=== PATIENT | male | born 1955 | race African-American/Black ===

== ENCOUNTER 2018-03-17 06:29 | Inpatient (IN) ==
--- NOTE | 2018-03-17 08:17 | ED ---
HPI General Chief complaint: Medical Clearance Stated complaint: Feet Swollen/cramping legs/pain in stomach Time Seen by Provider: 03/17/18 08:10 Source: patient Mode of arrival: ambulatory Limitations: no limitations History of Present Illness HPI narrative: 62-year-old male patient with history of hepatitis C, complicated by cirrhosis and recent need of ascites drainage last month at [facility], presents to the ER today because he has noticed that over the last few weeks he has had increased leg swelling, also noted that he has had some increased shortness of breath with exertion according to his . He denies any chest pains currently, abdominal pains, fevers, or other symptoms. He just moved to the area and wanted to come get checked out, does not yet have a primary care physician here. He states that he was released with diuretics which she has been taking regularly. Related Data Home Medications Medication Instructions Recorded Confirmed ciprofloxacin HCl 15 mg/kg PO Q12H 03/17/18 03/17/18 furosemide 40 mg PO BID 03/17/18 03/17/18 lactulose 10 g PO TID 03/17/18 03/17/18 spironolactone 100 mg PO DAILY 03/17/18 03/17/18 tamsulosin 0.4 mg PO DAILY 03/17/18 03/17/18 Allergies Allergy/AdvReac Type Severity Reaction Status Date / Time No Known Allergies Allergy Unverified 03/17/18 08:11 Review of Systems Except as stated in HPI: all other systems reviewed are negative [facility] Medical History Medical History Cirrhosis (Acute) Hepatitis C (Acute) Prostate cancer (Acute) Social History Social History Substance History: No History of Abuse Smoking Status: Never smoker How Often Do You Have a Drink Containing Alcohol: Never Recent Travel in [place] within the Last 8 Weeks: No Recent Out of Country Travel within the Last 8 Weeks: No Immunization History Tetanus Immunization: Unsure Hx Influenza Vaccine This Season: No Exam Narrative Exam Narrative: GENERAL: Well-developed elderly -[place] male patient currently in mild distress. Awake and oriented 3. SKIN: Focused skin assessment warm/dry. HEAD: Atraumatic. Normocephalic. EYES: Pupils equal and round. No scleral icterus. No injection or drainage. ENT: No nasal bleeding or discharge. Mucous membranes pink and moist. NECK: Trachea midline. No JVD. Supple. CARDIOVASCULAR: Regular rate and rhythm. No murmur appreciated. RESPIRATORY: No accessory muscle use. Clear to auscultation. Breath sounds equal bilaterally. GASTROINTESTINAL: Abdomen soft, non-tender, moderately distended. Hepatic and splenic margins not palpable. MUSCULOSKELETAL: No obvious deformities. No clubbing. No cyanosis. Bilateral pitting edema of both lower legs. NEUROLOGICAL: Awake and alert. No obvious cranial nerve deficits. Motor grossly within normal limits. Normal speech. Notable asterixis. PSYCHIATRIC: Appropriate mood and affect; insight and judgment normal. Course Hospital Course: Case is discussed with Dr. Ambriz for admission. Initial Documented Vital Signs Temperature 97.9 F 03/17/18 07:07 Pulse Rate 69 03/17/18 07:07 Respiratory Rate 16 03/17/18 07:07 Blood Pressure 110/63 03/17/18 07:07 Pulse Oximetry 99 03/17/18 07:07 Last Documented Vital Signs Temperature 97.9 F 03/17/18 07:07 Pulse Rate 88 03/17/18 07:12 Respiratory Rate 18 03/17/18 07:12 Blood Pressure 134/58 L 03/17/18 07:12 Pulse Oximetry 98 03/17/18 09:31 Medical Decision Making Differential Diagnosis Differential Diagnosis: Dependent edema versus ascites and worsening third spacing versus CHF Lab Data Result diagrams: 03/17/18 08:16 03/17/18 08:16 Lab Results 03/17/18 03/17/18 03/17/18 Range/Units 08:16 08:16 08:16 WBC 4.7 (4.0-11.0) th/mm3 RBC 2.57 L (4.50-5.90) mil/mm3 Hgb 9.1 L (13.0-17.0) gm/dL Hct 27.4 L (39.0-51.0) % MCV 106.9 H (80.0-100.0) fL MCH 35.4 H (27.0-34.0) pg MCHC 33.1 (32.0-36.0) % RDW 16.2 (11.6-17.2) % Plt Count 102 L (150-450) th/mm3 MPV 8.9 (7.0-11.0) fL Neut % (Auto) 65.7 (16.0-70.0) % Lymph % (Auto) 19.3 (9.0-44.0) % [place] % (Auto) 12.3 H (0.0-8.0) % Eos % (Auto) 1.9 (0.0-4.0) % Baso % (Auto) 0.8 (0.0-2.0) % Neut # (Auto) 3.1 (1.8-7.7) th/mm3 Lymph # (Auto) 0.9 L (1.0-4.8) th/mm3 [place] # (Auto) 0.6 (0.0-0.9) th/mm3 Eos # (Auto) 0.1 (0.0-0.4) th/mm3 Baso # (Auto) 0.0 (0.0-0.2) th/mm3 WBC Differential . Differential Comment Auto diff final PT 19.5 H (9.8-11.6) sec INR 1.9 Ratio APTT 36.7 H (24.3-30.1) sec Sodium 137 (136-145) meq/L Potassium 4.0 (3.5-5.1) meq/L Chloride 103 (98-107) meq/L Carbon Dioxide 23.3 (21.0-32.0) meq/L Anion Gap 11 (5-15) meq/L BUN 10 (7-18) mg/dL Creatinine 1.30 (0.60-1.30) mg/dL Estimated GFR 68 L (>89) mL/min Random Glucose 118 H (74-106) mg/dL Calcium 8.6 (8.5-10.1) mg/dL Total Bilirubin 6.9 H (0.2-1.0) mg/dL AST 100 H (15-37) U/L ALT 54 (12-78) U/L Alkaline Phosphatase 129 H (45-117) U/L Ammonia (11-32) mcmol/L Total Creatine Kinase 126 (39-308) U/L B-Natriuretic Peptide (0-100) pg/mL Total Protein 8.3 H (6.4-8.2) g/dL Albumin 1.6 L (3.4-5.0) g/dL 03/17/18 03/17/18 Range/Units 08:16 08:16 WBC (4.0-11.0) th/mm3 RBC (4.50-5.90) mil/mm3 Hgb (13.0-17.0) gm/dL Hct (39.0-51.0) % MCV (80.0-100.0) fL MCH (27.0-34.0) pg MCHC (32.0-36.0) % RDW (11.6-17.2) % Plt Count (150-450) th/mm3 MPV (7.0-11.0) fL Neut % (Auto) (16.0-70.0) % Lymph % (Auto) (9.0-44.0) % [place] % (Auto) (0.0-8.0) % Eos % (Auto) (0.0-4.0) % Baso % (Auto) (0.0-2.0) % Neut # (Auto) (1.8-7.7) th/mm3 Lymph # (Auto) (1.0-4.8) th/mm3 [place] # (Auto) (0.0-0.9) th/mm3 Eos # (Auto) (0.0-0.4) th/mm3 Baso # (Auto) (0.0-0.2) th/mm3 WBC Differential Differential Comment PT (9.8-11.6) sec INR Ratio APTT (24.3-30.1) sec Sodium (136-145) meq/L Potassium (3.5-5.1) meq/L Chloride (98-107) meq/L Carbon Dioxide (21.0-32.0) meq/L Anion Gap (5-15) meq/L BUN (7-18) mg/dL Creatinine (0.60-1.30) mg/dL Estimated GFR (>89) mL/min Random Glucose (74-106) mg/dL Calcium (8.5-10.1) mg/dL Total Bilirubin (0.2-1.0) mg/dL AST (15-37) U/L ALT (12-78) U/L Alkaline Phosphatase (45-117) U/L Ammonia 72 H (11-32) mcmol/L Total Creatine Kinase (39-308) U/L B-Natriuretic Peptide 51 (0-100) pg/mL Total Protein (6.4-8.2) g/dL Albumin (3.4-5.0) g/dL Imaging Data Radiologist's impression: ITS Impressions Chest X-Ray 03/17/18 08:11 CONCLUSION: Negative examination. Discharge Plan Discharge Disposition Patient Disposition: 30 Still Patient Discharge Condition Condition: Stable Discharge Details Anticipated Discharge Date: 03/17/18 Diagnosis: Hyperammonemia Physicians Team ED Provider: Jose Wasserman Primary Care Provider: Primary Care Margo Ty Rxs /Orders / Referrals /Forms Prescriptions: No Action furosemide 40 mg Tablet 40 mg PO BID RF: 0 ciprofloxacin HCl 500 mg Tablet 15 mg/kg PO Q12H RF: 0 tamsulosin 0.4 mg Capsule,Extended Release 24hr 0.4 mg PO DAILY RF: 0 spironolactone 50 mg Tablet 100 mg PO DAILY RF: 0 lactulose 10 gram/15 mL (15 mL) Solution 10 g PO TID RF: 0 Status ED Status: With Doctor
--- NOTE | 2018-03-17 08:26 | XR ---
EXAM DATE: 03/17/2018 8:24 AM EDT AGE/SEX: 62 years / Male INDICATIONS: Short of breath. CLINICAL DATA: This is the patient's initial encounter. Patient reports that signs and symptoms have been present for 2 days and indicates a pain score of 3/10. MEDICAL/SURGICAL HISTORY: Cirrhosis. Hepatitis C. None. COMPARISON: No prior exams available for comparison. FINDINGS: A single AP view of the chest demonstrates the lungs to be symmetrically aerated without evidence of mass, infiltrate or effusion. The cardiomediastinal contours are unremarkable. Osseous structures a re intact. CONCLUSION: Negative examination. Electronically signed by: Jerman Graham MD 03/17/2018 8:25 AM EDT
[2018-03-17 08:39] LABS: Baso % (Auto) 0.8 % (0.0-2.0); Eos # (Auto) 0.1 th/mm3 (0.0-0.4); Eos % (Auto) 1.9 % (0.0-4.0); Hematocrit 27.4 % (39.0-51.0); Hemoglobin 9.1 gm/dL (13.0-17.0); Lymph # (Auto) 0.9 th/mm3 (1.0-4.8); Lymph % (Auto) 19.3 % (9.0-44.0); Mean Corpuscular HGB Conc 33.1 % (32.0-36.0); Mean Corpuscular Hemoglobin 35.4 pg (27.0-34.0); Mean Corpuscular Volume 106.9 fL (80.0-100.0); Mean Platelet Volume 8.9 fL (7.0-11.0); Mono # (Auto) 0.6 th/mm3 (0.0-0.9); Mono % (Auto) 12.3 % (0.0-8.0); Neut # (Auto) 3.1 th/mm3 (1.8-7.7); Neut % (Auto) 65.7 % (16.0-70.0); Platelet Count 102 th/mm3 (150-450); Red Blood Count 2.57 mil/mm3 (4.50-5.90); Red Cell Distribution Width 16.2 % (11.6-17.2); White Blood Count 4.7 th/mm3 (4.0-11.0)
[2018-03-17 08:45] LABS: Activated Partial Thrombo Time 36.7 sec (24.3-30.1); INR 1.9 Ratio
[2018-03-17 08:47] LABS: Prothrombin Time 19.5 sec (9.8-11.6)
[2018-03-17 08:55] LABS: Albumin 1.6 g/dL (3.4-5.0); Anion Gap 11 meq/L (5-15); Aspartate Aminotransferase 100 U/L (15-37); Blood Urea Nitrogen 10 mg/dL (7-18); Calcium 8.6 mg/dL (8.5-10.1); Carbon Dioxide 23.3 meq/L (21.0-32.0); Chloride 103 meq/L (98-107); Glomerular Filtration Rate 68 mL/min (>89); Glucose,Random 118 mg/dL (74-106); Sodium 137 meq/L (136-145)
[2018-03-17 08:58] LABS: Alanine Aminotransferase 54 U/L (12-78); Alkaline Phosphatase 129 U/L (45-117); Creatine Kinase 126 U/L (39-308); Total Protein 8.3 g/dL (6.4-8.2)
[2018-03-17] MEDS ORDERED: Bisacodyl 10 MG Supp RECTAL PRN (10:36)
--- NOTE | 2018-03-17 10:36 | P.HPIM ---
History of Present Illness Primary Care Physician: No Primary Care Physician Chief Complaint: I am short of breath and has a lot of swelling in the legs History of Present Illness: 62-year-old -[place] male with a history of hepatitis C and cirrhosis who presents with one-week history of worsening shortness of breath on physical exertion and lower extremity swelling along with increased swelling of his abdomen. He was just hospitalized back in February 04 at [facility] in [place] and has seven liters of peritoneal fluid drained for his ascites. His states that he has been more confused over the past week and did not realize he was supposed to take his lactulose on a daily basis as she had thought this was a stool softener. He did not take his lactulose due to having loose stools during the past few days. They had just moved to this area 2 days ago and does not have any health care resources to follow-up with at this time. He denies any fevers or chills. After stopping the lactulose he has not had any further loose stools. He has denied any bloody stools or black stools. He reports some discomfort over the his abdomen due to the increased swelling. - Diagnosis (1) Hepatic encephalopathy (2) Liver disease, chronic, with cirrhosis (3) Ascites of liver Inpatient Certification: I certify that the inpatient services were ordered in accordance with Medicare regulations governing the order. This includes certification that hospital inpatient services are reasonable and necessary and in the case of services not specified as inpatient-only under 42 CFR 419.22(n), that they are appropriately provided as inpatient services in accordance to with the 2-midnight benchmark under 43 CFR 412.3(e) Review of Systems All other systems reviewed negative except as stated in HPI [facility] - History History Provided By: Patient - Medical History Medical History: Medical History (Last Updated 03/17/18 @ 10:30 by Ying Ambriz MD) Cirrhosis Hepatitis C Prostate cancer Psoriasis - Surgical History Surgical History: Surgical History (Last Updated 03/17/18 @ 10:31 by Ying Ambriz MD) H/O prostate biopsy - Family History Family History: Family History (Last Updated 03/17/18 @ 10:31 by Ying Ambriz MD) Mother Family history of acute myocardial infarction - Tobacco History Smoking Status: Never smoker - Alcohol History How Often Do You Have a Drink Containing Alcohol: Never - Substance Use History Substance History: No History of Abuse - Travel History Recent Travel in the [place] Within the Last 8 Weeks: No Recent Travel Out of the Country Within the Last 8 Weeks: No - Immunization History Tetanus Immunization: Unsure Hx Influenza Vaccine This Season: No Medications and Allergies Active Medications: Active Medications Sodium Chloride (Ns Flush) 2 ml IV.FLUSH PRN PRN PRN Reason: FLUSH AFTER USING IV ACCESS Allergies Allergy/AdvReac Type Severity Reaction Status Date / Time No Known Allergies Allergy Unverified 03/17/18 08:11 Home Medications Medication Instructions Recorded Confirmed Type ciprofloxacin HCl 15 mg/kg PO Q12H 03/17/18 03/17/18 History furosemide 40 mg PO BID 03/17/18 03/17/18 History lactulose 10 g PO TID 03/17/18 03/17/18 History spironolactone 100 mg PO DAILY 03/17/18 03/17/18 History tamsulosin 0.4 mg PO DAILY 03/17/18 03/17/18 History Exam Vital signs: Vital Signs 03/17/18 07:07 03/17/18 07:12 03/17/18 09:31 Temperature 97.9 F Pulse Rate 69 88 Respiratory Rate 16 18 Blood Pressure 110/63 134/58 L Pulse Oximetry 99 100 98 03/17/18 10:16 Temperature Pulse Rate 68 Respiratory Rate 18 Blood Pressure 105/70 Pulse Oximetry 97 Intake & Output 03/16/18 03/17/18 03/17/18 18:59 06:59 18:59 Weight 127.006 kg Narrative: GENERAL: Obese well-nourished well-developed male in no acute distress SKIN: Warm and dry. HEAD: Atraumatic. Normocephalic. EYES: Pupils equal and round. No scleral icterus. No injection or drainage. ENT: No nasal bleeding or discharge. Mucous membranes pink and moist. NECK: Trachea midline. No JVD. CARDIOVASCULAR: Regular rate and rhythm. RESPIRATORY: No accessory muscle use. Clear to auscultation. Breath sounds equal bilaterally. GASTROINTESTINAL: Abdomen soft, non-tender, distended with ascites. Normoactive bowel sounds. MUSCULOSKELETAL: Extremities without clubbing, cyanosis, with 2+ edema NEUROLOGICAL: Awake and alert to person place time but does not know his address. No obvious cranial nerve deficits. Motor grossly within normal limits. Five out of 5 muscle strength in the arms and legs. Normal speech. PSYCHIATRIC: Appropriate mood and affect; . Results - Labs CBC & Chem 7: 03/17/18 08:16 03/17/18 08:16 Labs: Short CBC 03/17/18 Range/Units 08:16 WBC 4.7 (4.0-11.0) th/mm3 Hgb 9.1 L (13.0-17.0) gm/dL Hct 27.4 L (39.0-51.0) % Plt Count 102 L (150-450) th/mm3 BMP 03/17/18 08:16 Sodium 137 Potassium 4.0 Chloride 103 Carbon Dioxide 23.3 BUN 10 Creatinine 1.30 Calcium 8.6 Cardiac Enzymes 03/17/18 Range/Units 08:16 Total Creatine Kinase 126 (39-308) U/L Liver Function 03/17/18 Range/Units 08:16 Total Bilirubin 6.9 H (0.2-1.0) mg/dL AST 100 H (15-37) U/L ALT 54 (12-78) U/L Alkaline Phosphatase 129 H (45-117) U/L Albumin 1.6 L (3.4-5.0) g/dL - Imaging Impressions Chest X-Ray 03/17/18 08:11 CONCLUSION: Negative examination. Caprini VTE Risk Assessment Caprini VTE Risk Assessment: Moderate/High Risk (score >= 2) Caprini Risk Assessment Model: Point Value = 1 Point Value = 2 Point Value = 3 Point Value = 5 Age 41-60 Minor surgery BMI > 25 kg/m2 Swollen legs Varicose veins or History of unexplained or recurrent spontaneous Oral contraceptives or hormone replacement Sepsis (< 1 month) Serious lung disease, including pneumonia (< 1 month) Abnormal pulmonary function Acute myocardial infarction Congestive heart failure (< 1 month) History of inflammatory bowel disease Medical patient at bed rest Age 61-74 Arthroscopic surgery Major open surgery (> 45 min) Laparoscopic surgery (> 45 min) Malignancy Confined to bed (> 72 hours) Immobilizing plaster cast Central venous access Age >= 75 History of VTE Family history of VTE Factor V Leiden Prothrombin [id number] Lupus anticoagulant Anticardiolipin antibodies Elevated serum homocysteine Heparin-induced thrombocytopenia Other congenital or acquired thrombophilia Stroke (< 1 month) Elective arthroplasty Hip, pelvis, or leg fracture Acute spinal cord injury (< 1 month) Prophylaxis Regimen: Total Risk Factor Score Risk Level Prophylaxis Regimen 0-1 Low Early ambulation 2 Moderate Order ONE of the following: *Sequential Compression Device (SCD) *Heparin 5000 units SQ BID 3-4 Higher Order ONE of the following medications: *Heparin 5000 units SQ TID *Enoxaparin/Lovenox 40 mg SQ daily (WT < 150 kg, CrCl > 30 mL/min) *Enoxaparin/Lovenox 30 mg SQ daily (WT < 150 kg, CrCl > 10-29 mL/min) *Enoxaparin/Lovenox 30 mg SQ BID (WT < 150 kg, CrCl > 30 mL/min) AND/OR *Sequential Compression Device (SCD) 5 or more Highest Order ONE of the following medications: *Heparin 5000 units SQ TID (Preferred with Epidurals) *Enoxaparin/Lovenox 40 mg SQ daily (WT < 150 kg, CrCl > 30 mL/min) *Enoxaparin/Lovenox 30 mg SQ daily (WT < 150 kg, CrCl > 10-29 mL/min) *Enoxaparin/Lovenox 30 mg SQ BID (WT < 150 kg, CrCl > 30 mL/min) AND *Sequential Compression Device (SCD) Assessment and Plan - Assessment (1) Hepatic encephalopathy Code(s): K72.90 - Hepatic failure, unspecified without coma Status: Acute (2) Liver disease, chronic, with cirrhosis Code(s): K74.60 - Unspecified cirrhosis of liver; K76.9 - Liver disease, unspecified Status: Chronic (3) Ascites of liver Code(s): R18.8 - Other ascites Status: Acute - Plan 1. Hepatic encephalopathypatient with elevated ammonia levels due to nonadherence to lactulose. Will restart home lactulose and counseled both patient and on the proper medication adherence. 2. History of liver cirrhosis, hepatitis C with ascites. IV Lasix and spironolactone. Consult GI physician per patient's request. Patient will prefer not to have a paracentesis if he can avoid it during this hospitalization. Case management to assist with referral to outpatient primary care physician upon discharge for follow-up. 3. Chronic kidney disease stage II. Monitor on diuretics. Avoid nephrotoxins. 4. DVT prophylaxisno anticoagulation secondary to history of liver cirrhosis
[2018-03-18 08:03] LABS: Calcium 8.2 mg/dL (8.5-10.1); Carbon Dioxide 22.4 meq/L (21.0-32.0); Potassium 3.5 meq/L (3.5-5.1)
--- NOTE | 2018-03-18 09:26 | P.PN ---
Subjective Interval history: complains of itching on IV site- likley reaction to chlorhexidine - medication was wipe out and itching resolved but by history with generlized itching- history of psoriasis- but plaque lesions are dry and not inflamed or red discuss with them that cirrhosis also can be contributing to itching- awake and alert no nausea or vomiting tolerated po well this am but feels bloated distended- states belly bigger seen with at bedside states history of BPH on Flomax Physical Exam Vital signs: Vital Signs 03/17/18 09:31 03/17/18 10:16 03/17/18 13:45 Temperature Pulse Rate 68 88 Respiratory Rate 18 18 Blood Pressure 105/70 142/69 H Pulse Oximetry 98 97 100 03/17/18 16:00 03/17/18 20:00 03/17/18 21:10 Temperature 97.7 F 98.1 F Pulse Rate 88 94 H 113 H Respiratory Rate 18 18 Blood Pressure 118/75 118/59 L Pulse Oximetry 100 99 03/17/18 23:30 03/18/18 00:00 03/18/18 03:55 Temperature 98.9 F Pulse Rate 108 H 87 97 H Respiratory Rate 18 Blood Pressure 103/59 L Pulse Oximetry 100 03/18/18 04:00 03/18/18 08:00 Temperature 97.9 F 98.1 F Pulse Rate 125 H 82 Respiratory Rate 18 18 Blood Pressure 105/60 114/77 Pulse Oximetry 98 99 Intake & Output 03/17/18 03/18/18 03/18/18 18:59 06:59 18:59 Intake Total 480 / 480 Output Total 100 / 100 Balance 380 / 380 Weight 145.5 kg 144.9 kg Intake: Oral 480 / 480 Output: Urine 100 / 100 Other: # Voids 1 Date of Last Bowel Movement 03/17/18 # Bowel Movements 1 Weight On Admission 145.5 kg Narrative: awake and alert, oriented x 3 slight icteresi no nuchal rigidity lungs- no wheezes, decreased breath sounds irregular rhythm, sinus with frequent PACs vs a fib on telemetry abdomen- distended but soft, good bowel sounds, nontender extremities + edema neuro exam- non focal Results - Labs CBC & Chem 7: 03/17/18 08:16 03/18/18 05:45 Laboratory Results - last 24 hr 03/18/18 05:45 Sodium 139 Potassium 3.5 Chloride 105 Carbon Dioxide 22.4 Anion Gap 12 BUN 11 Creatinine 1.08 Estimated GFR 84 L Random Glucose 108 H Calcium 8.2 L Assessment and Plan - Assessment (1) Hepatic encephalopathy Code(s): K72.90 - Hepatic failure, unspecified without coma Status: Acute (2) Liver disease, chronic, with cirrhosis Code(s): K74.60 - Unspecified cirrhosis of liver; K76.9 - Liver disease, unspecified Status: Chronic (3) Ascites of liver Code(s): R18.8 - Other ascites Status: Acute - Plan 62 years old male Hepatic encephalopathy history of liver cirrhosis- MS much improved History of Hep C History of alcohol use sober for years patient with elevated ammonia levels due to nonadherence to lactulose. restart home lactulose and counseled both patient and on the proper medication adherence. ff INR 1.9 Pruritus- likely from cirrhosis History of psoriasis doubt this as cause - plaque lesions are not inflamed and red consider bile acid sequestrants REcurrent ascites- per patient and had paracentesis done 6/ - 7 L out as OP was on Furosemide 40 mg daily and Aldactone 50 mg po bid Continue on IV Lasix and spironolactone. FF electrolytes Consult GI physician per patient's request. Get an Ultrasound of the abdomen= check for signiificant ascites Patient will prefer not to have a paracentesis if he can avoid it during this hospitalization. Tachycardia on telemetry - A fib new onset - d/w - no history of arrhytmia, or HTN, reviewed records from last hospital no ekg for review- but no mentio of arrhythmias - get 12 LEKG - get an echo- ff eletrolytes closely - start po KCL bid (at one point was on potassium supplements) - monitor BMP closely on aldactone and lasix Chronic kidney disease stage II. Monitor on diuretics. Avoid nephrotoxins. History of BPH -continue on Flomax 0,4 mg daily Anemia- likely chronic - INR 1.9 - check bea studies, B12, folate level - start PPI - GI consult DVT prophylaxisno anticoagulation secondary to history of liver cirrhosis Case management consult- needs assistance "we don't have anything"
--- NOTE | 2018-03-18 13:37 | P.CONGI ---
History of Present Illness Consult date: 03/18/18 Consult reason: Hepatitis C, cirrhosis Chief complaint: Elevated ammonia level/ heptaic encephalopathy History of Present Illness: This is a 62 yo M with known hepatitis C, treatment naive, with recent diagnosis of Cirrhosis while hospitalized at [facility] in [place] in February. During that admission pt had a paracentesis with 7 L of fluid removed, he was discharged home with Spironolactone, Lasix, and Lactulose. Per pts he was not taking the Lactulose because he thought it was for constipation and he states his BMs have been normal. Pt presented to the hospital yesterday with complaints of abdominal and lower extremity swelling and shortness of breath with exertion. Per pts she has also noticed that he has been kind of confused for the past couple days, she has also noticed some yellowing of his eyes. Pt denies having a GI doctor previously. Denies history of IV drug use, tattoos, high risk sexual behavior, and previous blood transfusion. Does reports previous alcohol but quit drinking 3-4 months ago. Has not had work up for liver transplant. <Maryam Braden - Last Filed: 03/18/18 13:28> Review of Systems Constitutional: Reports lack of energy Respiratory: Reports shortness of breath with activity Gastrointestinal: Denies abdominal pain, Denies black, tarry stools, Denies bright, red blood in stools, Denies change in stools, Denies nausea, Denies vomiting Comments: abdominal swelling <Maryam Braden - Last Filed: 03/18/18 13:28> [facility] - History History Provided By: Patient - Medical History Medical History: Medical History (Last Updated 03/17/18 @ 10:30 by Ying Ambriz MD) Cirrhosis Hepatitis C Prostate cancer Psoriasis - Surgical History Surgical History: Surgical History (Last Updated 03/17/18 @ 10:31 by Ying Ambriz MD) H/O prostate biopsy - Family History Family History: Family History (Last Updated 03/17/18 @ 10:31 by Ying Ambriz MD) Mother Family history of acute myocardial infarction - Tobacco History Second Hand Smoke Exposure: No Smoking Status: Never smoker - Alcohol History How Often Do You Have a Drink Containing Alcohol: Never - Substance Use History Substance History: No History of Abuse - Travel History Recent Travel in the [place] Within the Last 8 Weeks: No Recent Travel Out of the Country Within the Last 8 Weeks: No - Immunization History Tetanus Immunization: Unsure Hx Influenza Vaccine This Season: No <ChrisMaryam syed - Last Filed: 03/18/18 13:28> - Medical History Medical History: Medical History (Last Updated 03/17/18 @ 10:30 by Ying Ambriz MD) Cirrhosis Hepatitis C Prostate cancer Psoriasis - Surgical History Surgical History: Surgical History (Last Updated 03/17/18 @ 10:31 by Ying Ambriz MD) H/O prostate biopsy - Family History Family History: Family History (Last Updated 03/17/18 @ 10:31 by Ying Ambriz MD) Mother Family history of acute myocardial infarction <Lori Mayer - Last Filed: 03/18/18 21:08> Medications and Allergies Active Medications: Active Medications Al Hydroxide/Mg Hydroxide (Milk Of Magnesia Liq) 30 ml PO Q12H PRN PRN Reason: Mild Constipation Bisacodyl (Dulcolax Supp) 10 mg RECTAL DAILY PRN PRN Reason: SEVERE CONSITIPATION Diphenhydramine HCl (Benadryl) 50 mg PO Q6H PRN PRN Reason: pruritis Last Admin: 03/18/18 06:37 Dose: 50 mg Furosemide (Lasix Inj) 40 mg IV.PUSH BID@0900,1800 [facility] Last Admin: 03/18/18 08:35 Dose: 40 mg Lactulose (Lactulose Liq) 15 ml PO TID [facility] Last Admin: 03/18/18 12:44 Dose: 15 ml Pantoprazole Sodium (Protonix) 40 mg PO DAILY [facility] Last Admin: 03/18/18 12:45 Dose: 40 mg Potassium Chloride (Klor-Con 10) 10 meq PO BID [facility] Last Admin: 03/18/18 12:45 Dose: 10 meq Sennosides (Senokot) 17.2 mg PO Q12H PRN PRN Reason: Moderate Constipation Sodium Chloride (Ns Flush) 2 ml IV.FLUSH PRN PRN PRN Reason: FLUSH AFTER USING IV ACCESS Spironolactone (Aldactone) 100 mg PO DAILY [facility] Last Admin: 03/18/18 09:07 Dose: 100 mg Tamsulosin HCl (Flomax) 0.4 mg PO DAILY [facility] Last Admin: 03/18/18 09:07 Dose: 0.4 mg <Maryam Braden - Last Filed: 03/18/18 13:28> Active Medications: Active Medications Al Hydroxide/Mg Hydroxide (Milk Of Magnesia Liq) 30 ml PO Q12H PRN PRN Reason: Mild Constipation Bisacodyl (Dulcolax Supp) 10 mg RECTAL DAILY PRN PRN Reason: SEVERE CONSITIPATION Furosemide (Lasix Inj) 40 mg IV.PUSH BID@0900,1800 [facility] Last Admin: 03/18/18 18:04 Dose: 40 mg Hydroxyzine HCl (Atarax) 10 mg PO Q8H PRN PRN Reason: ITCHING Last Admin: 03/18/18 18:04 Dose: 10 mg Lactulose (Lactulose Liq) 15 ml PO TID [facility] Last Admin: 03/18/18 18:05 Dose: 15 ml Pantoprazole Sodium (Protonix) 40 mg PO DAILY [facility] Last Admin: 03/18/18 12:45 Dose: 40 mg Potassium Chloride (Klor-Con 10) 10 meq PO BID [facility] Last Admin: 03/18/18 12:45 Dose: 10 meq Rifaximin (Xifaxan) 550 mg PO Q12HR [facility] Sennosides (Senokot) 17.2 mg PO Q12H PRN PRN Reason: Moderate Constipation Sodium Chloride (Ns Flush) 2 ml IV.FLUSH PRN PRN PRN Reason: FLUSH AFTER USING IV ACCESS Spironolactone (Aldactone) 100 mg PO DAILY [facility] Last Admin: 03/18/18 09:07 Dose: 100 mg Tamsulosin HCl (Flomax) 0.4 mg PO DAILY [facility] Last Admin: 03/18/18 09:07 Dose: 0.4 mg <Lori Mayer - Last Filed: 03/18/18 21:08> Allergies Allergy/AdvReac Type Severity Reaction Status Date / Time chlorhexidine Allergy Mild Rash Verified 03/18/18 09:24 Home Medications Medication Instructions Recorded Confirmed Type ciprofloxacin HCl 15 mg/kg PO Q12H 03/17/18 03/17/18 History furosemide 40 mg PO BID 03/17/18 03/17/18 History lactulose 10 g PO TID 03/17/18 03/17/18 History spironolactone 100 mg PO DAILY 03/17/18 03/17/18 History tamsulosin 0.4 mg PO DAILY 03/17/18 03/17/18 History Exam Vital signs: Vital Signs 03/17/18 13:45 03/17/18 16:00 03/17/18 20:00 Temperature 97.7 F 98.1 F Pulse Rate 88 88 94 H Respiratory Rate 18 18 18 Blood Pressure 142/69 H 118/75 118/59 L Pulse Oximetry 100 100 99 03/17/18 21:10 03/17/18 23:30 03/18/18 00:00 Temperature 98.9 F Pulse Rate 113 H 108 H 87 Respiratory Rate 18 Blood Pressure 103/59 L Pulse Oximetry 100 03/18/18 03:55 03/18/18 04:00 03/18/18 08:00 Temperature 97.9 F 98.1 F Pulse Rate 97 H 125 H 82 Respiratory Rate 18 18 Blood Pressure 105/60 114/77 Pulse Oximetry 98 99 03/18/18 12:00 Temperature 97.8 F Pulse Rate 79 Respiratory Rate 17 Blood Pressure 127/62 Pulse Oximetry 100 Intake & Output 03/17/18 03/18/18 03/18/18 18:59 06:59 18:59 Intake Total 480 / 480 Output Total 100 / 100 Balance 380 / 380 Weight 145.5 kg 144.9 kg Intake: Oral 480 / 480 Output: Urine 100 / 100 Other: # Voids 1 Date of Last Bowel Movement 03/17/18 # Bowel Movements 1 Weight On Admission 145.5 kg - Constitutional no acute distress - Routine HEENT Exam Head: Present: normocephalic, atraumatic Eye: Present: conjunctival icterus - Routine Respiratory Exam Absent: accessory muscle use - Routine Cardiovascular Exam Present: RRR - Routine Abdominal Exam Present: soft, normoactive bowel sounds, distended. Absent: tenderness, rebound , guarding, firm - Routine Skin Exam Present: dry, warm - Routine Neurological Exam Present: alert, oriented X3 <Maryam Braden - Last Filed: 03/18/18 13:28> Vital signs: Vital Signs 03/17/18 21:10 03/17/18 23:30 03/18/18 00:00 Temperature 98.9 F Pulse Rate 113 H 108 H 87 Respiratory Rate 18 Blood Pressure 103/59 L Pulse Oximetry 100 03/18/18 03:55 03/18/18 04:00 03/18/18 08:00 Temperature 97.9 F 98.1 F Pulse Rate 97 H 125 H 92 H Respiratory Rate 18 18 Blood Pressure 105/60 114/77 Pulse Oximetry 98 99 03/18/18 12:00 03/18/18 16:00 03/18/18 20:00 Temperature 97.8 F 98.1 F 97.7 F Pulse Rate 85 89 95 H Respiratory Rate 17 17 18 Blood Pressure 127/62 127/58 L 115/62 Pulse Oximetry 100 99 100 Intake & Output 03/18/18 03/18/18 03/19/18 06:59 18:59 06:59 Intake Total 480 / 480 720 / 720 Output Total 100 / 100 Balance 380 / 380 720 / 720 Weight 144.9 kg Intake: Oral 480 / 480 720 / 720 Output: Urine 100 / 100 Other: # Voids 1 2 Date of Last Bowel Movement 03/17/18 03/17/18 # Bowel Movements 1 <Lori Mayer - Last Filed: 03/18/18 21:08> Results - Labs CBC & Chem 7: 03/17/18 08:16 03/18/18 05:45 Labs: Laboratory Results - last 24 hr 03/18/18 05:45 Sodium 139 Potassium 3.5 Chloride 105 Carbon Dioxide 22.4 Anion Gap 12 BUN 11 Creatinine 1.08 Estimated GFR 84 L Random Glucose 108 H Calcium 8.2 L <Maryam Braden - Last Filed: 03/18/18 13:28> - Labs CBC & Chem 7: 03/17/18 08:16 03/18/18 05:45 Labs: Laboratory Results - last 24 hr 03/18/18 03/18/18 05:45 05:45 Sodium 139 Potassium 3.5 Chloride 105 Carbon Dioxide 22.4 Anion Gap 12 BUN 11 Creatinine 1.08 Estimated GFR 84 L Random Glucose 108 H Calcium 8.2 L Magnesium 1.9 - Imaging Impressions Abdomen Ultrasound 03/18/18 00:00 CONCLUSION: 1. Ascites. <Lori Mayer - Last Filed: 03/18/18 21:08> Assessment and Plan - Plan Assessment: - Hepatitis C, treatment naive with recent diagnosis of cirrhosis while hospitalized at [facility] in [place] in February. Pt was discharged home with Lasix, Spironolactone, and Lactulose. Has not been taking Lactulose as prescribed because he thought this was for his bowel movements. Pt reports was advised for possibly Cari, because he is self pay and they offer financial assistance Complaints of abdominal and lower extremity swelling, worse over the past couple days. Had a paracentesis done in February at [facility] with 7 L of fluid removed. - Hypoalbuminemia, thrombocytopenia, and coagulopathy noted- secondary to cirrhosis Plan: US abdomen Hepatitis C genotype and quant Treatment for Hep C to be started outpatient Continue with ETOH cessation Monitor LFTs Monitor coags Monitor Ammonia Xifaxan and Lactulose Spironolactone and Lasix Further recommendations based on clinical course Pt has been seen and examined by myself and Dr. Mayer and this note is written on his behalf <Maryam Braden - Last Filed: 03/18/18 13:28> - Attending Attestation Agree with the plan as above, will follow up hep C and decompensated cirrhosis. Thank you for the consult. <Lori Mayer - Last Filed: 03/18/18 21:08>
--- NOTE | 2018-03-18 16:41 | US ---
EXAM DATE: 03/18/2018 4:18 PM EDT AGE/SEX: 62 years / Male INDICATIONS: Abdominal distention. CLINICAL DATA: This is the patient's initial encounter. Patient reports that signs and symptoms have been present for 1 week and indicates a pain score of 5/10. MEDICAL/SURGICAL HISTORY: Hepatitis C. Cirrhosis. Carcinoma, prostatic. Psoriasis. . Prosta te biopsy. COMPARISON: No prior exams available for comparison. FINDINGS: Moderate ascites is present. CONCLUSION: 1. Ascites. Electronically signed by: Dion Glover MD 03/18/2018 4:39 PM EDT
[2018-03-18] MEDS: rifAXIMin 550 MG Tablet PO SCH (21:08)
[2018-03-19 07:26] LABS: Albumin 1.5 g/dL (3.4-5.0); Anion Gap 10 meq/L (5-15); Aspartate Aminotransferase 84 U/L (15-37); Blood Urea Nitrogen 12 mg/dL (7-18); Calcium 8.4 mg/dL (8.5-10.1); Carbon Dioxide 25.4 meq/L (21.0-32.0); Chloride 103 meq/L (98-107); Glomerular Filtration Rate 68 mL/min (>89); Glucose,Random 104 mg/dL (74-106); Magnesium 1.9 mg/dL (1.5-2.5); Potassium 3.6 meq/L (3.5-5.1); Sodium 138 meq/L (136-145)
[2018-03-19 07:27] LABS: Alanine Aminotransferase 47 U/L (12-78); Iron 115 mcg/dL (65-175)
[2018-03-19 07:44] LABS: Prothrombin Time 20.4 sec (9.8-11.6)
[2018-03-19 08:27] LABS: % Iron Saturation 85.6 % (20-50); Alkaline Phosphatase 144 U/L (45-117); Ferritin 3146 ng/mL (26-388); Total Iron Binding Capacity 134 mcg/dL (250-450); Total Protein 7.3 g/dL (6.4-8.2); Vitamin B12 1514 pg/mL (193-986)
[2018-03-19] MEDS: rifAXIMin 550 MG Tablet PO SCH ×2 (09:53→20:34)
--- NOTE | 2018-03-19 13:35 | P.PNGI ---
Subjective Interval history: Pt reports the swelling in his abdomen and legs seems to be subsiding some. Denies abdominal pain, nausea, vomiting. <Maryam Braden - Last Filed: 03/19/18 13:31> Physical Exam Vital signs: Vital Signs 03/18/18 16:00 03/18/18 20:00 03/18/18 21:30 Temperature 98.1 F 97.7 F Pulse Rate 89 85 97 H Respiratory Rate 17 18 Blood Pressure 127/58 L 115/62 Pulse Oximetry 99 100 03/19/18 00:00 03/19/18 04:00 Temperature 97.5 F L 97.9 F Pulse Rate 93 H 86 Respiratory Rate 18 18 Blood Pressure 145/86 H 127/87 Pulse Oximetry 100 99 Intake & Output 03/18/18 03/19/18 03/19/18 18:59 06:59 18:59 Intake Total 720 / 720 240 / 240 Output Total 100 / 100 Balance 720 / 720 140 / 140 Weight 146.2 kg Intake: Oral 720 / 720 240 / 240 Output: Urine 100 / 100 Other: # Voids 2 Date of Last Bowel Movement 03/17/18 # Bowel Movements 0 - Constitutional no acute distress - Routine HEENT Exam Head: Present: normocephalic, atraumatic - Routine Respiratory Exam Absent: accessory muscle use - Routine Cardiovascular Exam Present: RRR - Routine Abdominal Exam Present: normoactive bowel sounds, distended, firm. Absent: tenderness - Routine Skin Exam Present: dry, warm - Routine Neurological Exam Present: alert, oriented X3 <Maryam Braden - Last Filed: 03/19/18 13:31> Vital signs: Vital Signs 03/19/18 00:00 03/19/18 04:00 03/19/18 08:00 Temperature 97.5 F L 97.9 F Pulse Rate 93 H 86 88 Respiratory Rate 18 18 Blood Pressure 145/86 H 127/87 Pulse Oximetry 100 99 03/19/18 12:00 03/19/18 20:00 Temperature 97.7 F Pulse Rate 84 77 Respiratory Rate 20 Blood Pressure 112/57 L Pulse Oximetry 100 Intake & Output 03/19/18 03/19/18 03/20/18 06:59 18:59 06:59 Intake Total 240 / 240 Output Total 100 / 100 Balance 140 / 140 Weight 146.2 kg Intake: Oral 240 / 240 Output: Urine 100 / 100 Other: # Bowel Movements 0 <Lori Mayer - Last Filed: 03/19/18 21:53> Results - Labs CBC & Chem 7: 03/17/18 08:16 03/19/18 06:35 Laboratory Results - last 24 hr 03/18/18 03/19/18 03/19/18 05:45 06:35 06:35 PT 20.4 H INR 2.0 Sodium 138 Potassium 3.6 Chloride 103 Carbon Dioxide 25.4 Anion Gap 10 BUN 12 Creatinine 1.30 Estimated GFR 68 L Random Glucose 104 Calcium 8.4 L Magnesium 1.9 1.9 Iron 115 TIBC 134 L % Saturation 85.6 H Ferritin 3146 H Total Bilirubin 4.6 H AST 84 H ALT 47 Alkaline Phosphatase 144 H Total Protein 7.3 D Albumin 1.5 L Vitamin B12 1514 H Folate 6.0 - Imaging Impressions Abdomen Ultrasound 03/18/18 00:00 CONCLUSION: 1. Ascites. <Maryam Braden - Last Filed: 03/19/18 13:31> - Labs CBC & Chem 7: 03/17/18 08:16 03/19/18 06:35 Laboratory Results - last 24 hr 03/19/18 03/19/18 06:35 06:35 PT 20.4 H INR 2.0 Sodium 138 Potassium 3.6 Chloride 103 Carbon Dioxide 25.4 Anion Gap 10 BUN 12 Creatinine 1.30 Estimated GFR 68 L Random Glucose 104 Calcium 8.4 L Magnesium 1.9 Iron 115 TIBC 134 L % Saturation 85.6 H Ferritin 3146 H Total Bilirubin 4.6 H AST 84 H ALT 47 Alkaline Phosphatase 144 H Total Protein 7.3 D Albumin 1.5 L Vitamin B12 1514 H Folate 6.0 <Lori Mayer - Last Filed: 03/19/18 21:53> Assessment and Plan - Plan Assessment: - Hepatitis C, treatment naive with recent diagnosis of cirrhosis while hospitalized at [facility] in [place] in February. Pt was discharged home with Lasix, Spironolactone, and Lactulose. Has not been taking Lactulose as prescribed because he thought this was for his bowel movements. Pt reports was advised for possibly Cari, because he is self pay and they offer financial assistance Complaints of abdominal and lower extremity swelling, worse over the past couple days. Had a paracentesis done in February at [facility] with 7 L of fluid removed. - Hypoalbuminemia, thrombocytopenia, and coagulopathy noted- secondary to cirrhosis (03/19) Pt reports some mild improvement in leg and abdominal swelling today. Still with pitting edema in BLE. LFTs trending down some. Elevated ferritin noted, will add HFE. US abdomen revealed ascites. Pt INR now 2, too high for paracentesis. FFP could be considered if paracentesis is needed. Hep C genotype and quant pending. Plan: HFE If paracentesis is necessary will need FFP transfusion Hepatitis C genotype and quant Treatment for Hep C to be started outpatient Continue with ETOH cessation Monitor LFTs Monitor coags Monitor Ammonia Xifaxan and Lactulose Spironolactone and Lasix Further recommendations based on clinical course Pt has been seen and examined by myself and Dr. Mayer and this note is written on his behalf <Mayram Braden - Last Filed: 03/19/18 13:31> - Attending Attestation Seen with victoria Francisco as above. Will follow up with you. <Lori Mayer - Last Filed: 03/19/18 21:53>
--- NOTE | 2018-03-19 14:46 | P.PN ---
Subjective Interval history: patient feels more distended full despite diuretics voiding well Physical Exam Vital signs: Vital Signs 03/18/18 16:00 03/18/18 20:00 03/18/18 21:30 Temperature 98.1 F 97.7 F Pulse Rate 89 85 97 H Respiratory Rate 17 18 Blood Pressure 127/58 L 115/62 Pulse Oximetry 99 100 03/19/18 00:00 03/19/18 04:00 Temperature 97.5 F L 97.9 F Pulse Rate 93 H 86 Respiratory Rate 18 18 Blood Pressure 145/86 H 127/87 Pulse Oximetry 100 99 Intake & Output 03/18/18 03/19/18 03/19/18 18:59 06:59 18:59 Intake Total 720 / 720 240 / 240 Output Total 100 / 100 Balance 720 / 720 140 / 140 Weight 146.2 kg Intake: Oral 720 / 720 240 / 240 Output: Urine 100 / 100 Other: # Voids 2 Date of Last Bowel Movement 03/17/18 # Bowel Movements 0 Narrative: awake and alert, oriented x 3 slight icteresia no nuchal rigidity lungs- no wheezes, decreased breath sounds regular rhtyhm with PAcs on telemetry abdomen- more distended, slightly tense, good bowel sounds, nontender extremities + edema neuro exam- non focal Results - Labs CBC & Chem 7: 03/17/18 08:16 03/19/18 06:35 Laboratory Results - last 24 hr 03/19/18 03/19/18 06:35 06:35 PT 20.4 H INR 2.0 Sodium 138 Potassium 3.6 Chloride 103 Carbon Dioxide 25.4 Anion Gap 10 BUN 12 Creatinine 1.30 Estimated GFR 68 L Random Glucose 104 Calcium 8.4 L Magnesium 1.9 Iron 115 TIBC 134 L % Saturation 85.6 H Ferritin 3146 H Total Bilirubin 4.6 H AST 84 H ALT 47 Alkaline Phosphatase 144 H Total Protein 7.3 D Albumin 1.5 L Vitamin B12 1514 H Folate 6.0 - Imaging Impressions Abdomen Ultrasound 03/18/18 00:00 CONCLUSION: 1. Ascites. Assessment and Plan - Assessment (1) Hepatic encephalopathy Code(s): K72.90 - Hepatic failure, unspecified without coma Status: Acute (2) Liver disease, chronic, with cirrhosis Code(s): K74.60 - Unspecified cirrhosis of liver; K76.9 - Liver disease, unspecified Status: Chronic (3) Ascites of liver Code(s): R18.8 - Other ascites Status: Acute - Plan 62 years old male Hepatic encephalopathy history of liver cirrhosis- MS much improved History of Hep C History of alcohol use sober for years patient with elevated ammonia levels due to nonadherence to lactulose. restart home lactulose and counseled both patient and on the proper medication adherence. ff INR 1.9 Pruritus- likely from cirrhosis History of psoriasis doubt this as cause - plaque lesions are not inflamed and red consider bile acid sequestrants- if persists REcurrent ascites- per patient and had paracentesis done 02/08 - 7 L out US with ascites- patient clinically feel full on exam more tense today c/w yesterday Continue on IV Lasix and spironolactone. FF electrolytes GI ff US consulted for paracentesis tomorrow am- get INR down will give 2 units FFP now and x 1 Vit K 10 mg SQ tonight for paracentesis in am INR in am patient agrees to paracentesis now- Tachycardia- rate better- EKG sinus with PACs - continue to monitor on telemetry - d/w - no history of arrhytmia, or HTN, - get an echo- ff eletrolytes closely - started po KCL bid (at one point was on potassium supplements) - monitor BMP closely on aldactone and lasix Chronic kidney disease stage II. Monitor on diuretics. Avoid nephrotoxins. History of BPH -continue on Flomax 0,4 mg daily Anemia- likely chronic - INR 1.9 - start PPI - GI ff DVT prophylaxisno anticoagulation secondary to history of liver cirrhosis Case management consult- needs assistance "we don't have anything"
[2018-03-19] MEDS ORDERED: Phytonadione Inj 10 MG/ML Vial SQ ONE (21:00)
[2018-03-20] MEDS: rifAXIMin 550 MG Tablet PO SCH ×2 (08:31→22:19)
[2018-03-20 09:08] LABS: INR 1.8 Ratio; Prothrombin Time 17.8 sec (9.8-11.6)
[2018-03-20 09:28] LABS: Albumin 1.7 g/dL (3.4-5.0); Anion Gap 10 meq/L (5-15); Aspartate Aminotransferase 86 U/L (15-37); Blood Urea Nitrogen 11 mg/dL (7-18); Calcium 8.3 mg/dL (8.5-10.1); Carbon Dioxide 26.4 meq/L (21.0-32.0); Chloride 102 meq/L (98-107); Glomerular Filtration Rate 69 mL/min (>89); Glucose,Random 103 mg/dL (74-106); Potassium 3.5 meq/L (3.5-5.1); Sodium 138 meq/L (136-145)
[2018-03-20 09:34] LABS: Alanine Aminotransferase 48 U/L (12-78); Alkaline Phosphatase 146 U/L (45-117); Total Protein 7.7 g/dL (6.4-8.2)
[2018-03-20] MEDS ORDERED: Albumin Human 25% Inj 150 ML IV.SIG ONE (11:33)
--- NOTE | 2018-03-20 11:37 | P.RAD ---
Post Procedure Progress Note - Pre Procedure Diagnosis (1) Liver disease, chronic, with cirrhosis (2) Ascites of liver - Post Procedure Diagnosis (1) Liver disease, chronic, with cirrhosis (2) Ascites of liver - Procedure Information Supervising Radiologist: Андрей Nicholson MD Estimated blood loss (mL): 0 Anesthesia: Local - Plan of Activity Patient to Unit: Other Patient Condition: Good See PACS Report for procedural detail/treatment. Drainage Procedure Ultrasound right Paracentesis Drainage: Suction Fluid Removal (CCs): 6,300 Fluid Description: Clear, Yellow Plan: return to floor.
--- NOTE | 2018-03-20 12:20 | ECG ---
Date Performed: 03/18/2018 Time Performed: 10:38:06 PTAGE: 62 years EKG: Sinus rhythm WITH FREQUENT VENTRICULAR PREMATURE COMPLEXES MARKED LEFT AXIS DEVIATION NONSPECIFIC T-WAVE ABNORMAL ITY ABNORMAL ECG NO PREVIOUS TRACING DOCTOR: Majo Baker Interpretating Date/Time 03/20/2018 12:09:57
[2018-03-20] MEDS ORDERED: Lidocaine PF 1% Inj 30 ML Vial ONE (13:18)
--- NOTE | 2018-03-20 13:20 | US ---
EXAM DATE: 03/20/2018 12:20 PM EDT AGE/SEX: 62 years / Male INDICATIONS: Ascites. CLINICAL DATA: This is the patient's initial encounter. Patient reports that signs and symptoms have been present for 1 month and indicates a pain score of 1/10. MEDICAL/SURGICAL HISTORY: Cirrhosis. Hepatitis C. Psoriasis. Prostate cancer. Ascites. . Pros botello biopsy. Paracentesis. COMPARISON: [facility], US ABDOMEN LOWER LIMITED, 03/18/2018. . FLUID: Total volume of 6300 cc of clear, yellow fluid was removed. Fluid was discarded. Paracentesis was the rapeutic only. . . TECHNIQUE: Ultrasound guidance for abdominal paracentesis. Paracentesis. The risks, benefits, and alternatives to ultrasound guided paracentesis were explained to the patient in detail including the risk of bleeding and infection. Written and verbal informed consent was obt ained. With the patient on the ultrasound table, ultrasound imaging was used to select the most appropriate approach for paracentesis. Overlying skin was prepped and draped in the usual sterile fashion and wi th a local anesthetic, a dermatotomy was made with an 11 blade scalpel. A 6 [id number] ca theter was introduced into the peritoneal cavity and fluid was collected. Post procedure scanning reveals no hematoma or other complication. The patient tolerated the procedu re well and left the ultrasound suite in stable condition. CONCLUSION: Uncomplicated paracentesis with removal of 6.3 L of fluid. Electronically signed by: Андрей Nicholson MD 03/20/2018 1:19 PM EDT
--- NOTE | 2018-03-20 14:11 | P.PNIM ---
Subjective Interval history: 03-19 patient feels more distended full despite diuretics voiding well - HAD PARACENTESIS 6.3LITERS TODAY NOT HAVING VERY FREQUENT BM'S PER PATIENT AND FAMILY AT BEDSIDE WILL CHECK AM LABS CONTINUE TO AKANKSHA LOPEZ RN AND PT AND FAMILY AND CM Physical Exam Vital signs: Vital Signs 03/19/18 16:00 03/19/18 20:00 03/20/18 00:00 Temperature 98.7 F 97.7 F 97.8 F Pulse Rate 96 H 92 H 102 H Respiratory Rate 20 20 20 Blood Pressure 139/67 112/57 L 114/58 L Pulse Oximetry 98 100 99 03/20/18 01:58 03/20/18 02:17 03/20/18 04:00 Temperature 98.2 F 98.2 F 97.7 F Pulse Rate 79 81 76 Respiratory Rate 16 16 20 Blood Pressure 135/76 138/78 102/51 L Pulse Oximetry 99 99 98 03/20/18 04:06 03/20/18 04:09 03/20/18 04:25 Temperature 97.9 F 97.9 F 98.0 F Pulse Rate 76 80 77 Respiratory Rate 18 18 18 Blood Pressure 109/64 111/68 109/70 Pulse Oximetry 98 99 99 03/20/18 05:48 03/20/18 08:00 03/20/18 11:04 Temperature 98.0 F 98.3 F 99.3 F Pulse Rate 77 102 H 82 Respiratory Rate 16 20 18 Blood Pressure 120/74 111/55 L 121/74 Pulse Oximetry 98 99 100 03/20/18 12:10 03/20/18 12:30 Temperature 98.8 F Pulse Rate 78 85 Respiratory Rate 18 18 Blood Pressure 126/59 L 117/59 L Pulse Oximetry 99 99 Intake & Output 03/19/18 03/20/18 03/20/18 18:59 06:59 18:59 Intake Total 240 / 240 511 / 511 Output Total 400 / 400 Balance -160 / -160 511 / 511 Weight 147.4 kg Intake: Oral 240 / 240 240 / 240 Intake (Blood Product) Amt Plasma Thawed 5 Day Acda Unit 0 / 0 [id number] Plasma Thawed 5 Day Cp2d Unit 271 / [id number] Output: Urine 400 / 400 Other: # Voids 2 Date of Last Bowel Movement 03/17/18 # Bowel Movements 0 0 Narrative: GENERAL: AWAKE ALERT AND ORIENTED X3 TALKATIVE AND COOPERATIVE TODAY SKIN: Warm and dry. HEAD: Atraumatic. Normocephalic. EYES: Pupils equal and round. No scleral icterus. No injection or drainage. ENT: No nasal bleeding or discharge. Mucous membranes pink and moist. NECK: Trachea midline. No JVD. SUPPLE CARDIOVASCULAR: Regular rate and rhythm. S1, S2 NO S3 OR S4 RESPIRATORY: No accessory muscle use. Clear to auscultation. Breath sounds equal bilaterally. GASTROINTESTINAL: Abdomen soft, non-tender, nondistended. Hepatic and splenic margins not palpable. SOFT NOT DISTENDED SP PARACENTESIS MUSCULOSKELETAL: Extremities without clubbing, cyanosis, PLUS 1 TO 2 EDEMA BL LE IMPROVED No obvious deformities. NEUROLOGICAL: Awake and alert. No obvious cranial nerve deficits. Motor grossly within normal limits. Five out of 5 muscle strength in the arms and legs. Normal speech. PSYCHIATRIC: Appropriate mood and affect; insight and judgment normal. Results - Labs CBC & Chem 7: 03/17/18 08:16 03/20/18 08:45 Laboratory Results - last 24 hr 03/19/18 03/20/18 03/20/18 19:18 08:45 08:45 PT 17.8 H INR 1.8 Sodium 138 Potassium 3.5 Chloride 102 Carbon Dioxide 26.4 Anion Gap 10 BUN 11 Creatinine 1.28 Estimated GFR 69 L Random Glucose 103 Calcium 8.3 L Total Bilirubin 5.0 H AST 86 H ALT 48 Alkaline Phosphatase 146 H Total Protein 7.7 Albumin 1.7 L Blood Type O Positive Blood Type Recheck Required Blood Bank Comment - Imaging Impressions Paracentesis Ultrasound 03/20/18 00:00 CONCLUSION: Uncomplicated paracentesis with removal of 6.3 L of fluid. Assessment and Plan - Assessment (1) Hepatic encephalopathy Code(s): K72.90 - Hepatic failure, unspecified without coma Status: Acute (2) Liver disease, chronic, with cirrhosis Code(s): K74.60 - Unspecified cirrhosis of liver; K76.9 - Liver disease, unspecified Status: Chronic (3) Ascites of liver Code(s): R18.8 - Other ascites Status: Chronic - Plan 62 years old male Hepatic encephalopathy history of liver cirrhosis- MS much improved History of Hep C History of alcohol use sober for years patient with elevated ammonia levels due to nonadherence to lactulose. restart home lactulose and counseled both patient and on the proper medication adherence. ON RIFAXIMIN ff INR 1.9 Pruritus- likely from cirrhosis History of psoriasis doubt this as cause - plaque lesions are not inflamed and red consider bile acid sequestrants- if persists REcurrent ascites- per patient and had paracentesis done 02/08 - 7 L out SP PARACENTESIS - 6.3 LITERS US with ascites- patient clinically feel full on exam more tense today c/w yesterday Continue on IV Lasix and spironolactone. FF electrolytes GI ff US consulted for paracentesis tomorrow am- get INR down will give 2 units FFP now and x 1 Vit K 10 mg SQ tonight for paracentesis in am INR in am patient agrees to paracentesis now- 03-20 PARACENTESIS 6.3 LITERS Tachycardia- rate better- EKG sinus with PACs - continue to monitor on telemetry - d/w - no history of arrhytmia, or HTN, - get an echo- ff eletrolytes closely - started po KCL bid (at one point was on potassium supplements) - monitor BMP closely on aldactone and lasix Chronic kidney disease stage II. Monitor on diuretics. Avoid nephrotoxins. History of BPH -continue on Flomax 0,4 mg daily Anemia- likely chronic - INR 1.9 - start PPI - GI ff DVT prophylaxisno anticoagulation secondary to history of liver cirrhosis Case management consult- needs assistance "we don't have anything" Code Status: FULL CODE Discussed Condition With: RN AND PT AND CM Discharge Planning: WILL NEED HELP WITH [employer]
--- NOTE | 2018-03-20 14:50 | P.PNGI ---
Subjective Interval history: Pt reports significant improvement in abdominal swelling after paracentesis. Denies nausea, vomiting, abdominal pain. Tolerating PO. Physical Exam Vital signs: Vital Signs 03/19/18 16:00 03/19/18 20:00 03/20/18 00:00 Temperature 98.7 F 97.7 F 97.8 F Pulse Rate 96 H 92 H 102 H Respiratory Rate 20 20 20 Blood Pressure 139/67 112/57 L 114/58 L Pulse Oximetry 98 100 99 03/20/18 01:58 03/20/18 02:17 03/20/18 04:00 Temperature 98.2 F 98.2 F 97.7 F Pulse Rate 79 81 76 Respiratory Rate 16 16 20 Blood Pressure 135/76 138/78 102/51 L Pulse Oximetry 99 99 98 03/20/18 04:06 03/20/18 04:09 03/20/18 04:25 Temperature 97.9 F 97.9 F 98.0 F Pulse Rate 76 80 77 Respiratory Rate 18 18 18 Blood Pressure 109/64 111/68 109/70 Pulse Oximetry 98 99 99 03/20/18 05:48 03/20/18 08:00 03/20/18 11:04 Temperature 98.0 F 98.3 F 99.3 F Pulse Rate 77 102 H 82 Respiratory Rate 16 20 18 Blood Pressure 120/74 111/55 L 121/74 Pulse Oximetry 98 99 100 03/20/18 12:10 03/20/18 12:30 Temperature 98.8 F Pulse Rate 78 85 Respiratory Rate 18 18 Blood Pressure 126/59 L 117/59 L Pulse Oximetry 99 99 Intake & Output 03/19/18 03/20/18 03/20/18 18:59 06:59 18:59 Intake Total 240 / 240 511 / 511 Output Total 400 / 400 Balance -160 / -160 511 / 511 Weight 147.4 kg Intake: Oral 240 / 240 240 / 240 Intake (Blood Product) Amt 271 / Plasma Thawed 5 Day Acda Unit 0 / 0 [id number] Plasma Thawed 5 Day Cp2d Unit 271 / 271 [id number] Output: Urine 400 / 400 Other: # Voids 2 Date of Last Bowel Movement 03/17/18 # Bowel Movements 0 0 - Constitutional no acute distress - Routine HEENT Exam Head: Present: normocephalic, atraumatic - Routine Respiratory Exam Present: decreased breath sounds. Absent: accessory muscle use - Routine Cardiovascular Exam Present: RRR - Routine Abdominal Exam Present: soft, normoactive bowel sounds. Absent: tenderness - Routine Extremities Exam Present: edema Comments: BLE pitting edema - Routine Skin Exam Present: dry, warm - Routine Neurological Exam Present: alert, oriented X3 Results - Labs CBC & Chem 7: 03/17/18 08:16 03/20/18 08:45 Laboratory Results - last 24 hr 03/19/18 03/20/18 03/20/18 19:18 08:45 08:45 PT 17.8 H INR 1.8 Sodium 138 Potassium 3.5 Chloride 102 Carbon Dioxide 26.4 Anion Gap 10 BUN 11 Creatinine 1.28 Estimated GFR 69 L Random Glucose 103 Calcium 8.3 L Total Bilirubin 5.0 H AST 86 H ALT 48 Alkaline Phosphatase 146 H Total Protein 7.7 Albumin 1.7 L Blood Type O Positive Blood Type Recheck Required Blood Bank Comment - Imaging Impressions Paracentesis Ultrasound 03/20/18 00:00 CONCLUSION: Uncomplicated paracentesis with removal of 6.3 L of fluid. Assessment and Plan - Plan Assessment: - Hepatitis C, treatment naive with recent diagnosis of cirrhosis while hospitalized at [facility] in [place] in February. Pt was discharged home with Lasix, Spironolactone, and Lactulose. Has not been taking Lactulose as prescribed because he thought this was for his bowel movements. Pt reports was advised for possibly Cari, because he is self pay and they offer financial assistance Complaints of abdominal and lower extremity swelling, worse over the past couple days. Had a paracentesis done in February at [facility] with 7 L of fluid removed. S/P paracentesis (03/20) 6300 mL of fluid removed - Hypoalbuminemia, thrombocytopenia, and coagulopathy noted- secondary to cirrhosis (03/20) S/P paracentesis earlier today with 6.3 L of fluid removed. No improvement in LFTs today. Plan: HFE pending Hepatitis C genotype and quant pending Treatment for Hep C to be started outpatient- pt reports he was advised to start Harvoni Continue with ETOH cessation Monitor LFTs Monitor coags Monitor Ammonia Xifaxan and Lactulose Spironolactone and Lasix Further recommendations based on clinical course Pt has been seen and examined by myself and Dr. Lopez and this note is written on his behalf
[2018-03-21] MEDS ORDERED: Melatonin 5 MG Tablet PO ONE (03:18)
--- NOTE | 2018-03-21 08:11 | ECHRPT ---
Indication: A FIB FLUTTER CONCLUSIONS Normal left ventricular size. Wall thickness is normal. The left ventricular systolic function is normal with an estimated ejection fraction in the range of 55-60%. Normal wall motion. Trace mitral valve regurgitation. The estimated pulmonary arterial pressure is 40 mm Hg. There is trace tricuspid valve regurgitation. BP: / HR: Rhythm: MEASUREMENTS (Male / Female) Normal Values Technical Quality: 2D ECHO LV Diastolic Diameter PLAX 5.2 cm 4.2 - 5.9 / 3.9 - 5.3 cm LV Systolic Diameter PLAX 3.9 cm IVS Diastolic Thickness 1.2 cm 0.6 - 1.0 / 0.6 - 0.9 cm LVPW Diastolic Thickness 1.0 cm 0.6 - 1.0 / 0.6 - 0.9 cm LV Relative Wall Thickness 0.4 DOPPLER Mitral E Point Velocity 121.0 cm/s Mitral A Point Velocity 103.0 cm/s Mitral E to A Ratio 1.2 TR Peak Velocity 308.0 cm/s TR Peak Gradient 37.9 mmHg Right Atrial Pressure 10.0 mmHg Pulmonary Artery Systolic Pressu 47.9 mmHg Right Ventricular Systolic Press 47.9 mmHg FINDINGS LEFT VENTRICLE Normal left ventricular size. Wall thickness is normal. The left ventricular systolic function is normal with an estimated ejection fraction in the range of 55-60%. Normal wall motion. RIGHT VENTRICLE Normal right ventricular size and systolic function. LEFT ATRIUM The left atrial size is normal. RIGHT ATRIUM The right atrial size is normal. ATRIAL SEPTUM Normal atrial septal thickness without atrial level shunting by limited color doppler interrogation. AORTA The aortic root and proximal ascending aorta are normal in size on limited imaging. MITRAL VALVE Trace mitral valve regurgitation. AORTIC VALVE Trileaflet aortic valve. No aortic valve stenosis or regurgitation. TRICUSPID VALVE The estimated pulmonary arterial pressure is 40 mm Hg. There is trace tricuspid valve regurgitation. PULMONARY VALVE No pulmonary valve regurgitation or stenosis. VESSELS The inferior vena cava is normal in size. PERICARDIUM No pericardial effusion. Niko Martin MD (Electronically Signed) Final Date:21 March 2018 08:10
[2018-03-21 09:46] LABS: Baso % (Auto) 0.7 % (0.0-2.0); Eos # (Auto) 0.2 th/mm3 (0.0-0.4); Eos % (Auto) 4.5 % (0.0-4.0); Hematocrit 21.7 % (39.0-51.0); Hemoglobin 7.3 gm/dL (13.0-17.0); Lymph # (Auto) 1.1 th/mm3 (1.0-4.8); Lymph % (Auto) 27.5 % (9.0-44.0); Mean Corpuscular HGB Conc 33.5 % (32.0-36.0); Mean Corpuscular Hemoglobin 35.7 pg (27.0-34.0); Mean Corpuscular Volume 106.7 fL (80.0-100.0); Mean Platelet Volume 8.8 fL (7.0-11.0); Mono # (Auto) 0.5 th/mm3 (0.0-0.9); Mono % (Auto) 12.5 % (0.0-8.0); Neut # (Auto) 2.2 th/mm3 (1.8-7.7); Neut % (Auto) 54.8 % (16.0-70.0); Platelet Count 76 th/mm3 (150-450); Red Blood Count 2.03 mil/mm3 (4.50-5.90); Red Cell Distribution Width 16.8 % (11.6-17.2); White Blood Count 3.9 th/mm3 (4.0-11.0)
[2018-03-21] MEDS: rifAXIMin 550 MG Tablet PO SCH ×2 (10:04→21:29)
[2018-03-21 10:17] LABS: Prothrombin Time 20.2 sec (9.8-11.6)
[2018-03-21 10:25] LABS: Alanine Aminotransferase 39 U/L (12-78); Albumin 1.7 g/dL (3.4-5.0); Anion Gap 9 meq/L (5-15); Aspartate Aminotransferase 68 U/L (15-37); Blood Urea Nitrogen 10 mg/dL (7-18); Calcium 8.4 mg/dL (8.5-10.1); Carbon Dioxide 26.9 meq/L (21.0-32.0); Chloride 101 meq/L (98-107); Glomerular Filtration Rate Greater Than 89 mL/min (>89); Glucose,Random 85 mg/dL (74-106); Potassium 3.6 meq/L (3.5-5.1); Sodium 137 meq/L (136-145)
[2018-03-21 10:34] LABS: Alkaline Phosphatase 114 U/L (45-117); Free T4 (Free Thyroxine) 1.45 ng/dL (0.76-1.46); Phosphorus 2.4 mg/dL (2.5-4.9); Total Protein 6.6 g/dL (6.4-8.2)
--- NOTE | 2018-03-21 13:20 | P.PNGI ---
Subjective Interval history: Pt resting in bed, at bedside. States one BM early this morning, diarrhea, no obvious bleeding. Denies nausea, vomiting, abdominal pain. Still with significant BLE swelling. <Maryam Braden - Last Filed: 03/21/18 13:17> Physical Exam Vital signs: Vital Signs 03/20/18 15:45 03/20/18 16:00 03/20/18 20:00 Temperature 99.9 F H 98.2 F Pulse Rate 102 H 90 88 Respiratory Rate 20 18 Blood Pressure 129/58 L 128/62 Pulse Oximetry 100 99 03/21/18 00:00 03/21/18 00:05 03/21/18 04:05 Temperature 97.9 F Pulse Rate 89 88 80 Respiratory Rate 18 Blood Pressure 127/57 L Pulse Oximetry 99 03/21/18 08:00 03/21/18 12:00 Temperature 98.6 F 98.5 F Pulse Rate 65 80 Respiratory Rate 20 20 Blood Pressure 106/62 121/58 L Pulse Oximetry 97 99 Intake & Output 03/20/18 03/21/18 03/21/18 18:59 06:59 18:59 Intake Total 720 / 720 Output Total 325 / 325 Balance 395 / 395 Intake: Oral 720 / 720 Output: Urine 325 / 325 Other: Date of Last Bowel Movement 03/17/18 03/20/18 03/20/18 # Bowel Movements 1 - Constitutional no acute distress - Routine HEENT Exam Head: Present: normocephalic, atraumatic - Routine Respiratory Exam Absent: accessory muscle use - Routine Cardiovascular Exam Present: RRR - Routine Abdominal Exam Present: soft, normoactive bowel sounds. Absent: tenderness - Routine Extremities Exam Comments: BLE edema - Routine Skin Exam Present: dry, warm - Routine Neurological Exam Present: alert, oriented X3 <Maryam Braden - Last Filed: 03/21/18 13:17> Vital signs: Vital Signs 03/20/18 20:00 03/21/18 00:00 03/21/18 00:05 Temperature 98.2 F 97.9 F Pulse Rate 88 89 88 Respiratory Rate 18 18 Blood Pressure 128/62 127/57 L Pulse Oximetry 99 99 03/21/18 04:05 03/21/18 08:00 03/21/18 12:00 Temperature 98.6 F 98.5 F Pulse Rate 80 63 75 Respiratory Rate 20 20 Blood Pressure 106/62 121/58 L Pulse Oximetry 97 99 03/21/18 16:00 Temperature 98.9 F Pulse Rate 83 Respiratory Rate 20 Blood Pressure 131/58 L Pulse Oximetry 100 Intake & Output 03/20/18 03/21/18 03/21/18 18:59 06:59 18:59 Intake Total 720 / 720 840 / 840 Output Total 325 / 325 Balance 395 / 395 840 / 840 Intake: Oral 720 / 720 840 / 840 Output: Urine 325 / 325 Other: # Voids 550 Date of Last Bowel Movement 03/17/18 03/20/18 03/20/18 # Bowel Movements 1 <Charles Lopez E - Last Filed: 03/21/18 18:56> Results - Labs CBC & Chem 7: 03/21/18 09:22 03/21/18 09:22 Laboratory Results - last 24 hr 03/21/18 03/21/18 03/21/18 09:22 09:22 09:22 WBC 3.9 L RBC 2.03 L Hgb 7.3 L Hct 21.7 L MCV 106.7 H MCH 35.7 H MCHC 33.5 RDW 16.8 Plt Count 76 L MPV 8.8 Prelim Diff (Auto) Slide review pending Neut % (Auto) 54.8 Lymph % (Auto) 27.5 Nye % (Auto) 12.5 H Eos % (Auto) 4.5 H Baso % (Auto) 0.7 Neut # (Auto) 2.2 Lymph # (Auto) 1.1 Nye # (Auto) 0.5 Eos # (Auto) 0.2 Baso # (Auto) 0.0 WBC Differential . Diff Scan Auto diff confirmed Differential Comment . PT 20.2 H INR 2.0 Sodium 137 Potassium 3.6 Chloride 101 Carbon Dioxide 26.9 Anion Gap 9 BUN 10 Creatinine 0.99 Estimated GFR Greater than 89 Random Glucose 85 Calcium 8.4 L Phosphorus 2.4 L Magnesium 2.0 Total Bilirubin 5.4 H AST 68 H ALT 39 Alkaline Phosphatase 114 Ammonia Total Protein 6.6 D Albumin 1.7 L TSH 1.700 Free T4 1.45 03/21/18 09:22 WBC RBC Hgb Hct MCV MCH MCHC RDW Plt Count MPV Prelim Diff (Auto) Neut % (Auto) Lymph % (Auto) Nye % (Auto) Eos % (Auto) Baso % (Auto) Neut # (Auto) Lymph # (Auto) Nye # (Auto) Eos # (Auto) Baso # (Auto) WBC Differential Diff Scan Differential Comment PT INR Sodium Potassium Chloride Carbon Dioxide Anion Gap BUN Creatinine Estimated GFR Random Glucose Calcium Phosphorus Magnesium Total Bilirubin AST ALT Alkaline Phosphatase Ammonia 41 H Total Protein Albumin TSH Free T4 Microbiology 03/20/18 08:40 Blood - Peripheral Aerobic Blood Culture - Preliminary No growth in 1 day 03/20/18 08:40 Blood - Peripheral Anaerobic Blood Culture - Preliminary No growth in 1 day 03/20/18 08:45 Blood - Peripheral Aerobic Blood Culture - Preliminary No growth in 1 day 03/20/18 08:45 Blood - Peripheral Anaerobic Blood Culture - Preliminary No growth in 1 day - Imaging Impressions Paracentesis Ultrasound 03/20/18 00:00 CONCLUSION: Uncomplicated paracentesis with removal of 6.3 L of fluid. <Maryam Braden - Last Filed: 03/21/18 13:17> - Labs CBC & Chem 7: 03/21/18 09:22 03/21/18 09:22 Laboratory Results - last 24 hr 03/21/18 03/21/18 03/21/18 09:22 09:22 09:22 WBC 3.9 L RBC 2.03 L Hgb 7.3 L Hct 21.7 L MCV 106.7 H MCH 35.7 H MCHC 33.5 RDW 16.8 Plt Count 76 L MPV 8.8 Prelim Diff (Auto) Slide review pending Neut % (Auto) 54.8 Lymph % (Auto) 27.5 Nye % (Auto) 12.5 H Eos % (Auto) 4.5 H Baso % (Auto) 0.7 Neut # (Auto) 2.2 Lymph # (Auto) 1.1 Nye # (Auto) 0.5 Eos # (Auto) 0.2 Baso # (Auto) 0.0 WBC Differential . Diff Scan Auto diff confirmed Differential Comment . PT 20.2 H INR 2.0 Sodium Potassium Chloride Carbon Dioxide Anion Gap BUN Creatinine Estimated GFR Random Glucose Hemoglobin A1c 3.4 L Calcium Phosphorus Magnesium Total Bilirubin AST ALT Alkaline Phosphatase Ammonia Total Protein Albumin TSH Free T4 03/21/18 03/21/18 09:22 09:22 WBC RBC Hgb Hct MCV MCH MCHC RDW Plt Count MPV Prelim Diff (Auto) Neut % (Auto) Lymph % (Auto) Nye % (Auto) Eos % (Auto) Baso % (Auto) Neut # (Auto) Lymph # (Auto) Nye # (Auto) Eos # (Auto) Baso # (Auto) WBC Differential Diff Scan Differential Comment PT INR Sodium 137 Potassium 3.6 Chloride 101 Carbon Dioxide 26.9 Anion Gap 9 BUN 10 Creatinine 0.99 Estimated GFR Greater than 89 Random Glucose 85 Hemoglobin A1c Calcium 8.4 L Phosphorus 2.4 L Magnesium 2.0 Total Bilirubin 5.4 H AST 68 H ALT 39 Alkaline Phosphatase 114 Ammonia 41 H Total Protein 6.6 D Albumin 1.7 L TSH 1.700 Free T4 1.45 Microbiology 03/20/18 08:40 Blood - Peripheral Aerobic Blood Culture - Preliminary No growth in 1 day 03/20/18 08:40 Blood - Peripheral Anaerobic Blood Culture - Preliminary No growth in 1 day 03/20/18 08:45 Blood - Peripheral Aerobic Blood Culture - Preliminary No growth in 1 day 03/20/18 08:45 Blood - Peripheral Anaerobic Blood Culture - Preliminary No growth in 1 day <Charles Lopez - Last Filed: 03/21/18 18:56> Assessment and Plan - Plan Assessment: - Hepatitis C, treatment naive with recent diagnosis of cirrhosis while hospitalized at [facility] in [place] in February. Pt was discharged home with Lasix, Spironolactone, and Lactulose. Has not been taking Lactulose as prescribed because he thought this was for his bowel movements. Pt reports was advised for possibly Cari, because he is self pay and they offer financial assistance Complaints of abdominal and lower extremity swelling, worse over the past couple days. Had a paracentesis done in February at [facility] with 7 L of fluid removed. S/P paracentesis (03/20) 6300 mL of fluid removed - Hypoalbuminemia, thrombocytopenia, and coagulopathy noted- secondary to cirrhosis (03/20) S/P paracentesis earlier today with 6.3 L of fluid removed. No improvement in LFTs today. (03/21) Pt with drop in H/H today, hgb currently 7.3. Denies any obvious GIB. Last BM was early this morning, diarrhea. Denies nausea, vomiting, abdominal pain. Plan: EGD tomorrow Obtain consent NPO after MN 3 U FFP to be given starting at 4 am prior to procedure Repeat INR HFE pending Hepatitis C genotype and quant pending Treatment for Hep C to be started outpatient- pt reports he was advised to start Harvoni Continue with ETOH cessation Monitor LFTs Monitor coags Monitor Ammonia Xifaxan and Lactulose Spironolactone and Lasix Further recommendations based on clinical course Pt has been seen and examined by myself and Dr. Lopez and this note is written on his behalf <Maryam Braden - Last Filed: 03/21/18 13:17> - Attending Attestation Patient seen and examined agree with above Continue with current supportive care Monitor labs We will supplement albumin <Charles Lopez - Last Filed: 03/21/18 18:56>
[2018-03-21 13:23] LABS: Hemoglobin A1c 3.4 % (4.3-6.0)
[2018-03-21] MEDS ORDERED: Sodium Chlor 0.9% Inj 250 ML IV.SIG SCH (14:00)
--- NOTE | 2018-03-21 14:26 | P.PNIM ---
Subjective Interval history: 7 patient feels more distended full despite diuretics voiding well 7-16 HAD PARACENTESIS 6.3LITERS TODAY NOT HAVING VERY FREQUENT BM'S PER PATIENT AND FAMILY AT BEDSIDE WILL CHECK AM LABS CONTINUE TO AKANKSHA LOPEZ RN AND PT AND FAMILY AND CM 03-21 PATIENT HAS ANEMIA TO HAVE EGD TOMORROW AMMONIA IS IMPROVED AM LABS MAY NEED A TRANSFUSION EGD FOR VARICES ISSUES Physical Exam Vital signs: Vital Signs 03/20/18 15:45 03/20/18 16:00 03/20/18 20:00 Temperature 99.9 F H 98.2 F Pulse Rate 102 H 90 88 Respiratory Rate 20 18 Blood Pressure 129/58 L 128/62 Pulse Oximetry 100 99 03/21/18 00:00 03/21/18 00:05 03/21/18 04:05 Temperature 97.9 F Pulse Rate 89 88 80 Respiratory Rate 18 Blood Pressure 127/57 L Pulse Oximetry 99 03/21/18 08:00 03/21/18 12:00 Temperature 98.6 F 98.5 F Pulse Rate 65 80 Respiratory Rate 20 20 Blood Pressure 106/62 121/58 L Pulse Oximetry 97 99 Intake & Output 03/20/18 03/21/18 03/21/18 18:59 06:59 18:59 Intake Total 720 / 720 Output Total 325 / 325 Balance 395 / 395 Intake: Oral 720 / 720 Output: Urine 325 / 325 Other: Date of Last Bowel Movement 03/17/18 03/20/18 03/20/18 # Bowel Movements 1 Narrative: GENERAL: AWAKE ALERT AND ORIENTED X3 TALKATIVE AND COOPERATIVE TODAY SKIN: Warm and dry. HEAD: Atraumatic. Normocephalic. EYES: Pupils equal and round. No scleral icterus. No injection or drainage. ENT: No nasal bleeding or discharge. Mucous membranes pink and moist. NECK: Trachea midline. No JVD. SUPPLE CARDIOVASCULAR: Regular rate and rhythm. S1, S2 NO S3 OR S4 RESPIRATORY: No accessory muscle use. Clear to auscultation. Breath sounds equal bilaterally. GASTROINTESTINAL: Abdomen soft, non-tender, nondistended. Hepatic and splenic margins not palpable. SOFT NOT DISTENDED SP PARACENTESIS MUSCULOSKELETAL: Extremities without clubbing, cyanosis, PLUS 1 TO 2 EDEMA BL LE IMPROVED No obvious deformities. NEUROLOGICAL: Awake and alert. No obvious cranial nerve deficits. Motor grossly within normal limits. Five out of 5 muscle strength in the arms and legs. Normal speech. PSYCHIATRIC: Appropriate mood and affect; insight and judgment normal. Results - Labs CBC & Chem 7: 03/21/18 09:22 03/21/18 09:22 Laboratory Results - last 24 hr 03/21/18 03/21/18 03/21/18 09:22 09:22 09:22 WBC 3.9 L RBC 2.03 L Hgb 7.3 L Hct 21.7 L MCV 106.7 H MCH 35.7 H MCHC 33.5 RDW 16.8 Plt Count 76 L MPV 8.8 Prelim Diff (Auto) Slide review pending Neut % (Auto) 54.8 Lymph % (Auto) 27.5 [place] % (Auto) 12.5 H Eos % (Auto) 4.5 H Baso % (Auto) 0.7 Neut # (Auto) 2.2 Lymph # (Auto) 1.1 [place] # (Auto) 0.5 Eos # (Auto) 0.2 Baso # (Auto) 0.0 WBC Differential . Diff Scan Auto diff confirmed Differential Comment . PT 20.2 H INR 2.0 Sodium Potassium Chloride Carbon Dioxide Anion Gap BUN Creatinine Estimated GFR Random Glucose Hemoglobin A1c 3.4 L Calcium Phosphorus Magnesium Total Bilirubin AST ALT Alkaline Phosphatase Ammonia Total Protein Albumin TSH Free T4 03/21/18 03/21/18 09:22 09:22 WBC RBC Hgb Hct MCV MCH MCHC RDW Plt Count MPV Prelim Diff (Auto) Neut % (Auto) Lymph % (Auto) [place] % (Auto) Eos % (Auto) Baso % (Auto) Neut # (Auto) Lymph # (Auto) [place] # (Auto) Eos # (Auto) Baso # (Auto) WBC Differential Diff Scan Differential Comment PT INR Sodium 137 Potassium 3.6 Chloride 101 Carbon Dioxide 26.9 Anion Gap 9 BUN 10 Creatinine 0.99 Estimated GFR Greater than 89 Random Glucose 85 Hemoglobin A1c Calcium 8.4 L Phosphorus 2.4 L Magnesium 2.0 Total Bilirubin 5.4 H AST 68 H ALT 39 Alkaline Phosphatase 114 Ammonia 41 H Total Protein 6.6 D Albumin 1.7 L TSH 1.700 Free T4 1.45 Microbiology 03/20/18 08:40 Blood - Peripheral Aerobic Blood Culture - Preliminary No growth in 1 day 03/20/18 08:40 Blood - Peripheral Anaerobic Blood Culture - Preliminary No growth in 1 day 03/20/18 08:45 Blood - Peripheral Aerobic Blood Culture - Preliminary No growth in 1 day 03/20/18 08:45 Blood - Peripheral Anaerobic Blood Culture - Preliminary No growth in 1 day - Procedures PARACENTESIS 03-20 6.3 LITERS OFF Assessment and Plan - Assessment (1) Hepatic encephalopathy Code(s): K72.90 - Hepatic failure, unspecified without coma Status: Acute (2) Liver disease, chronic, with cirrhosis Code(s): K74.60 - Unspecified cirrhosis of liver; K76.9 - Liver disease, unspecified Status: Chronic (3) Ascites of liver Code(s): R18.8 - Other ascites Status: Chronic - Plan 62 years old male Hepatic encephalopathy history of liver cirrhosis- MS much improved History of Hep C History of alcohol use sober for years patient with elevated ammonia levels due to nonadherence to lactulose. restart home lactulose and counseled both patient and on the proper medication adherence. ON RIFAXIMIN ff INR 1.9 Pruritus- likely from cirrhosis History of psoriasis doubt this as cause - plaque lesions are not inflamed and red consider bile acid sequestrants- if persists REcurrent ascites- per patient and had paracentesis done 02/08 - 7 L out SP PARACENTESIS 03-20 6.3 LITERS US with ascites- patient clinically feel full on exam more tense today c/w yesterday Continue on IV Lasix and spironolactone. FF electrolytes GI ff US consulted for paracentesis tomorrow am- get INR down will give 2 units FFP now and x 1 Vit K 10 mg SQ tonight for paracentesis in am INR in am patient agrees to paracentesis now- 03-20 PARACENTESIS 6.3 LITERS Tachycardia- rate better- EKG sinus with PACs - continue to monitor on telemetry - d/w - no history of arrhytmia, or HTN, - get an echo- ff eletrolytes closely - started po KCL bid (at one point was on potassium supplements) - monitor BMP closely on aldactone and lasix Chronic kidney disease stage II. Monitor on diuretics. Avoid nephrotoxins. History of BPH -continue on Flomax 0,4 mg daily Anemia- likely chronic - INR 1.9 - start PPI - GI ff HEMOGLOBIN NOW 7.3 TO HAVE EGD TOMORROWN 03-22 DVT prophylaxisno anticoagulation secondary to history of liver cirrhosis Case management consult- needs assistance "we don't have anything" Code Status: FULL CODE Discussed Condition With: NEEDS EGD Discharge Planning: WILL NEED HELP WITH DC MEDS
[2018-03-21] MEDS: Zolpidem Tartrate 5 MG Tablet PO PRN (21:29)
[2018-03-21] MEDS: Albumin Human 25% Inj 100 ML IV.SIG SCH (21:30)
[2018-03-22] MEDS ORDERED: Melatonin 5 MG Tablet PO ONE (00:12)
[2018-03-22] MEDS ORDERED: Metoprolol Tartrate 25 MG Tablet PO SCH (07:00)
[2018-03-22] MEDS ORDERED: Sodium Chlor 0.9% Inj 500 ML IV.SIG SCH (07:00)
[2018-03-22] MEDS ORDERED: Chlorhexidine Gluconate 2% 1 Pack (2 Cloths) TOPICAL SCH (07:00)
[2018-03-22] MEDS: Albumin Human 25% Inj 100 ML IV.SIG SCH ×3 (07:12→22:02)
[2018-03-22] MEDS: rifAXIMin 550 MG Tablet PO SCH ×2 (09:25→20:47)
[2018-03-22 10:26] LABS: Baso % (Auto) 1.2 % (0.0-2.0); Eos # (Auto) 0.1 th/mm3 (0.0-0.4); Eos % (Auto) 4.2 % (0.0-4.0); Lymph # (Auto) 0.9 th/mm3 (1.0-4.8); Lymph % (Auto) 26.2 % (9.0-44.0); Mean Corpuscular HGB Conc 33.9 % (32.0-36.0); Mean Corpuscular Volume 106.4 fL (80.0-100.0); Mean Platelet Volume 8.6 fL (7.0-11.0); Mono # (Auto) 0.4 th/mm3 (0.0-0.9); Mono % (Auto) 13.4 % (0.0-8.0); Neut # (Auto) 1.8 th/mm3 (1.8-7.7); Platelet Count 71 th/mm3 (150-450); Red Blood Count 1.91 mil/mm3 (4.50-5.90); Red Cell Distribution Width 16.7 % (11.6-17.2); White Blood Count 3.3 th/mm3 (4.0-11.0)
[2018-03-22 10:30] LABS: INR 1.7 Ratio; Prothrombin Time 17.4 sec (9.8-11.6)
[2018-03-22 10:35] LABS: Hemoglobin 6.9 gm/dL (13.0-17.0)
[2018-03-22 10:36] LABS: Hematocrit 20.4 % (39.0-51.0)
[2018-03-22 10:51] LABS: Albumin 2.4 g/dL (3.4-5.0); Anion Gap 10 meq/L (5-15); Aspartate Aminotransferase 57 U/L (15-37); Blood Urea Nitrogen 10 mg/dL (7-18); Calcium 8.7 mg/dL (8.5-10.1); Carbon Dioxide 27.1 meq/L (21.0-32.0); Chloride 102 meq/L (98-107); Glomerular Filtration Rate 86 mL/min (>89); Glucose,Random 99 mg/dL (74-106); Potassium 3.6 meq/L (3.5-5.1); Sodium 139 meq/L (136-145)
[2018-03-22 10:56] LABS: Alanine Aminotransferase 37 U/L (12-78); Alkaline Phosphatase 123 U/L (45-117); Phosphorus 2.3 mg/dL (2.5-4.9); Total Protein 6.8 g/dL (6.4-8.2)
[2018-03-22 11:13] LABS: Platelet Morphology Normal (Normal); Target Cells 1+
[2018-03-22] MEDS ORDERED: Lidocaine PF 1% Inj 5 ML Syringe INFILTRATN ONE (12:00)
--- NOTE | 2018-03-22 16:12 | P.PCN ---
Date of procedure: 03/22/18 Pre-op diagnosis: Worsening anemia, cirrhosis Post-op diagnosis: other Procedure: PROCEDURE PERFORMED EGD with cautery INDICATION FOR PROCEDURE Worsening anemia, cirrhosis PROCEDURE: The procedure, risks and benefits were discussed with Patient/POA and informed consent was obtained. Anesthesia sedated Patient with Diprivan. Patient was placed in the left lateral decubitus position. EGD: The Pentax videoscope was introduced through the oropharynx and advanced to the second portion of the duodenum under direct visualization. Retroflexion was performed in the stomach. FINDINGS: The esophagus patient had 2 columns of grade 1 esophageal varices with no stigmata of recent bleed The stomach there was an AVM that was bleeding in the mid gastric body this was cauterized and the patient was also showing signs of watermelon stomach in the antrum these 2 were cauterized The duodenum this was normal ESTIMATED BLOOD LOSS: Minimal SPECIMENS REMOVED: None COMPLICATIONS: None IMPRESSION: Esophageal varices grade 1 Gastric AVM Watermelon stomach PLAN: Continue with current supportive care Correct coagulopathy Monitor labs and transfuse as needed EGD in 3 months Clear liquid diet for today PPI Anesthesia: MAC Surgeon: Charles Lopez Condition: stable Disposition: floor
--- NOTE | 2018-03-22 16:44 | P.PNIM ---
Subjective Interval history: 7-15 patient feels more distended full despite diuretics voiding well 7-16 HAD PARACENTESIS 6.3LITERS TODAY NOT HAVING VERY FREQUENT BM'S PER PATIENT AND FAMILY AT BEDSIDE WILL CHECK AM LABS CONTINUE TO AKANKSHA LOPEZ RN AND PT AND FAMILY AND CM 7-17 PATIENT HAS ANEMIA TO HAVE EGD TOMORROW AMMONIA IS IMPROVED AM LABS MAY NEED A TRANSFUSION EGD FOR VARICES ISSUES 7-18 had EGD TODAY SHOWED VARICES AND WATERMELON STOMACH AND GASTRIC AVMS ALSO TRANSFUSED 2 UNITS PRBC AND 2 UNITS FFP AM LABS AMMONIA LEVEL IS ELEVATED AGAIN AM LABD DW RN AND PT AND CM AND FAMILY Physical Exam Vital signs: Vital Signs 03/21/18 20:00 03/22/18 00:30 03/22/18 03:55 Temperature 98.4 F Pulse Rate 84 114 H 78 Respiratory Rate 18 Blood Pressure 120/70 Pulse Oximetry 96 03/22/18 04:00 03/22/18 04:16 03/22/18 04:41 Temperature 98.8 F 98.8 F 98.4 F Pulse Rate 76 76 88 Respiratory Rate 18 18 18 Blood Pressure 137/88 137/88 122/68 Pulse Oximetry 99 99 98 03/22/18 05:08 03/22/18 05:09 03/22/18 05:51 Temperature 98.4 F 98.4 F 98.1 F Pulse Rate 79 79 74 Respiratory Rate 18 18 16 Blood Pressure 122/68 122/68 120/59 L Pulse Oximetry 98 98 98 03/22/18 06:11 03/22/18 06:13 03/22/18 07:08 Temperature 98.1 F 98.1 F 98.4 F Pulse Rate 74 74 82 Respiratory Rate 16 16 18 Blood Pressure 120/90 120/59 L 125/67 Pulse Oximetry 98 98 98 03/22/18 08:00 03/22/18 09:00 03/22/18 12:00 Temperature 98.7 F Pulse Rate 84 83 83 Respiratory Rate 18 Blood Pressure 128/70 Pulse Oximetry 99 03/22/18 12:30 03/22/18 12:45 03/22/18 13:16 Temperature 98.2 F 97.9 F 98.3 F Pulse Rate 73 78 83 Respiratory Rate 18 18 18 Blood Pressure 103/53 L 112/57 L 129/76 Pulse Oximetry 100 100 100 07/18/18 14:29 03/22/18 14:35 03/22/18 15:23 Temperature 97.1 F L 98.1 F Pulse Rate 68 66 58 L Respiratory Rate 18 14 Blood Pressure 122/62 122/61 121/58 L Pulse Oximetry 99 100 03/22/18 15:25 03/22/18 16:08 Temperature 98.1 F 98.2 F Pulse Rate 58 L 68 Respiratory Rate 18 Blood Pressure 121/58 L 112/67 Pulse Oximetry 98 100 Intake & Output 03/21/18 03/22/18 03/22/18 18:59 06:59 18:59 Intake Total 840 / 840 580 / 580 1405 / 1405 Output Total 525 / 525 Balance 840 / 840 55 / 55 1405 / 1405 Weight 140.3 kg Intake: IV 100 / 100 560 / 560 Flexbumin 25% Inj 100 ML @ 60 100 / 100 60 / 60 mls/hr IV.SIG Q8HR SHOSHANA Rx#: [id number] LR 1000 mL Inj 1,000 ML @ 30 500 / 500 mls/hr IV.SIG .Q24H SHOSHANA Rx#: [id number] Oral 840 / 840 480 / 480 Other 270 / 270 Plasma Thawed 5 Day Cp2d Unit 270 / 270 [id number] Intake (Blood Product) Amt 0 / 0 575 / 575 Plasma Thawed 5 Day Cp2d Unit 305 / 305 [id number] Plasma Thawed 5 Day Cp2d Unit 270 / 270 [id number] Plasma Thawed 5 Day Cp2d Unit 0 / 0 0 / 0 [id number] Plasma Thawed 5 Day Cp2d Unit 0 / 0 [id number] Plasma Thawed 5 Day Cp2d Unit 0 / 0 [id number] Rbc As-3 Leukoreduced Unit 0 / 0 [id number] Rbc As-3 Leukoreduced Unit 0 / 0 [id number] Output: Urine 525 / 525 Other: # Voids 550 Date of Last Bowel Movement 03/20/18 03/21/18 Narrative: GENERAL: AWAKE ALERT AND ORIENTED X3 TALKATIVE AND COOPERATIVE TODAY SKIN: Warm and dry. HEAD: Atraumatic. Normocephalic. EYES: Pupils equal and round. No scleral icterus. No injection or drainage. ENT: No nasal bleeding or discharge. Mucous membranes pink and moist. NECK: Trachea midline. No JVD. SUPPLE CARDIOVASCULAR: Regular rate and rhythm. S1, S2 NO S3 OR S4 RESPIRATORY: No accessory muscle use. Clear to auscultation. Breath sounds equal bilaterally. GASTROINTESTINAL: Abdomen soft, non-tender, nondistended. Hepatic and splenic margins not palpable. SOFT NOT DISTENDED SP PARACENTESIS MUSCULOSKELETAL: Extremities without clubbing, cyanosis, PLUS 1 TO 2 EDEMA BL LE IMPROVED No obvious deformities. NEUROLOGICAL: Awake and alert. No obvious cranial nerve deficits. Motor grossly within normal limits. Five out of 5 muscle strength in the arms and legs. Normal speech. PSYCHIATRIC: Appropriate mood and affect; insight and judgment normal. Results - Labs CBC & Chem 7: 03/22/18 09:40 03/22/18 09:40 Laboratory Results - last 24 hr 03/22/18 03/22/18 03/22/18 00:34 09:40 09:40 WBC 3.3 L RBC 1.91 L Hgb 6.9 L* Hct 20.4 L* MCV 106.4 H MCH 36.0 H MCHC 33.9 RDW 16.7 Plt Count 71 L MPV 8.6 Prelim Diff (Auto) Slide review pending Neut % (Auto) 55.0 Lymph % (Auto) 26.2 [place] % (Auto) 13.4 H Eos % (Auto) 4.2 H Baso % (Auto) 1.2 Neut # (Auto) 1.8 Lymph # (Auto) 0.9 L [place] # (Auto) 0.4 Eos # (Auto) 0.1 Baso # (Auto) 0.0 WBC Differential . Diff Scan Auto diff confirmed Differential Comment . Platelet Estimate Low L Platelet Morphology Normal Target Cells 1+ H PT 17.4 H INR 1.7 Sodium Potassium Chloride Carbon Dioxide Anion Gap BUN Creatinine Estimated GFR Random Glucose Calcium Phosphorus Magnesium Total Bilirubin AST ALT Alkaline Phosphatase Ammonia Total Protein Albumin Blood Type Antibody Screen MTS Gel Crossmatch Blood Bank Comment 03/22/18 03/22/18 03/22/18 09:40 09:40 10:54 WBC RBC Hgb Hct MCV MCH MCHC RDW Plt Count MPV Prelim Diff (Auto) Neut % (Auto) Lymph % (Auto) [place] % (Auto) Eos % (Auto) Baso % (Auto) Neut # (Auto) Lymph # (Auto) [place] # (Auto) Eos # (Auto) Baso # (Auto) WBC Differential Diff Scan Differential Comment Platelet Estimate Platelet Morphology Target Cells PT INR Sodium 139 Potassium 3.6 Chloride 102 Carbon Dioxide 27.1 Anion Gap 10 BUN 10 Creatinine 1.06 Estimated GFR 86 L Random Glucose 99 Calcium 8.7 Phosphorus 2.3 L Magnesium 2.0 Total Bilirubin 5.1 H AST 57 H ALT 37 Alkaline Phosphatase 123 H Ammonia 67 H Total Protein 6.8 Albumin 2.4 L D Blood Type Antibody Screen MTS Gel Crossmatch Blood Bank Comment 03/22/18 12:15 WBC RBC Hgb Hct MCV MCH MCHC RDW Plt Count MPV Prelim Diff (Auto) Neut % (Auto) Lymph % (Auto) [place] % (Auto) Eos % (Auto) Baso % (Auto) Neut # (Auto) Lymph # (Auto) [place] # (Auto) Eos # (Auto) Baso # (Auto) WBC Differential Diff Scan Differential Comment Platelet Estimate Platelet Morphology Target Cells PT INR Sodium Potassium Chloride Carbon Dioxide Anion Gap BUN Creatinine Estimated GFR Random Glucose Calcium Phosphorus Magnesium Total Bilirubin AST ALT Alkaline Phosphatase Ammonia Total Protein Albumin Blood Type O Positive Antibody Screen Negative MTS Gel Crossmatch See Detail Blood Bank Comment Microbiology 03/20/18 08:40 Blood - Peripheral Aerobic Blood Culture - Preliminary No growth in 2 days 03/20/18 08:40 Blood - Peripheral Anaerobic Blood Culture - Preliminary No growth in 2 days 03/20/18 08:45 Blood - Peripheral Aerobic Blood Culture - Preliminary No growth in 2 days 03/20/18 08:45 Blood - Peripheral Anaerobic Blood Culture - Preliminary No growth in 2 days - Procedures PARACENTESIS 7-16 6.3 LITERS OFF Date of procedure: 03/22/18 Pre-op diagnosis: Worsening anemia, cirrhosis Post-op diagnosis: other Procedure: PROCEDURE PERFORMED EGD with cautery INDICATION FOR PROCEDURE Worsening anemia, cirrhosis PROCEDURE: The procedure, risks and benefits were discussed with Patient/POA and informed consent was obtained. Anesthesia sedated Patient with Diprivan. Patient was placed in the left lateral decubitus position. EGD: The Pentax videoscope was introduced through the oropharynx and advanced to the second portion of the duodenum under direct visualization. Retroflexion was performed in the stomach. FINDINGS: The esophagus patient had 2 columns of grade 1 esophageal varices with no stigmata of recent bleed The stomach there was an AVM that was bleeding in the mid gastric body this was cauterized and the patient was also showing signs of watermelon stomach in the antrum these 2 were cauterized The duodenum this was normal ESTIMATED BLOOD LOSS: Minimal SPECIMENS REMOVED: None COMPLICATIONS: None IMPRESSION: Esophageal varices grade 1 Gastric AVM Watermelon stomach PLAN: Continue with current supportive care Correct coagulopathy Monitor labs and transfuse as needed EGD in 3 months Clear liquid diet for today PPI Anesthesia: MAC Surgeon: Charles Lopez Condition: stable Disposition: floor Documented By: Charles Lopez MD 03/22/18 [id number] Assessment and Plan - Assessment (1) Hepatic encephalopathy Code(s): K72.90 - Hepatic failure, unspecified without coma Status: Acute (2) Liver disease, chronic, with cirrhosis Code(s): K74.60 - Unspecified cirrhosis of liver; K76.9 - Liver disease, unspecified Status: Chronic (3) Ascites of liver Code(s): R18.8 - Other ascites Status: Chronic - Plan 62 years old male Hepatic encephalopathy history of liver cirrhosis- MS much improved History of Hep C History of alcohol use sober for years patient with elevated ammonia levels due to nonadherence to lactulose. restart home lactulose and counseled both patient and on the proper medication adherence. ON RIFAXIMIN ff INR 1.9 Pruritus- likely from cirrhosis History of psoriasis doubt this as cause - plaque lesions are not inflamed and red consider bile acid sequestrants- if persists- STARTED ON CHOLESTYRAMINE REcurrent ascites- per patient and had paracentesis done 02/08 - 7 L out SP PARACENTESIS 7-16 6.3 LITERS US with ascites- patient clinically feel full on exam more tense today c/w yesterday Continue on IV Lasix and spironolactone. FF electrolytes GI ff US consulted for paracentesis tomorrow am- get INR down will give 2 units FFP now and x 1 Vit K 10 mg SQ tonight for paracentesis in am INR in am patient agrees to paracentesis now- -16 PARACENTESIS 6.3 LITERS Tachycardia- rate better- EKG sinus with PACs - continue to monitor on telemetry - d/w - no history of arrhytmia, or HTN, - get an echo- ff eletrolytes closely - started po KCL bid (at one point was on potassium supplements) - monitor BMP closely on aldactone and lasix Chronic kidney disease stage II. Monitor on diuretics. Avoid nephrotoxins. History of BPH -continue on Flomax 0,4 mg daily Anemia- likely chronic - INR 1.9 - start PPI - GI ff HEMOGLOBIN NOW 7.3 TO HAVE EGD TOMORROWN 03-22 ANEMIA 6.9 WAS TRANSFUSED 2 UNITS PRBC AND 2 UNITS FFP EGD 03-22 SHOWED VARICES AND WATERMELON STOMACH AND GASTRIC AVMS DVT prophylaxisno anticoagulation secondary to history of liver cirrhosis Case management consult- needs assistance "we don't have anything" Code Status: FULL CODE Discussed Condition With: RN AND PT AND FAMILY AND CM Discharge Planning: WILL NEED HELP WITH DC MEDS
[2018-03-22] MEDS: Zolpidem Tartrate 5 MG Tablet PO PRN (22:01)
[2018-03-23] MEDS: Albumin Human 25% Inj 100 ML IV.SIG SCH ×3 (06:12→21:11)
[2018-03-23 07:53] LABS: INR 1.8 Ratio; Prothrombin Time 18.7 sec (9.8-11.6)
[2018-03-23 07:56] LABS: Baso % (Auto) 0.8 % (0.0-2.0); Eos # (Auto) 0.1 th/mm3 (0.0-0.4); Eos % (Auto) 4.4 % (0.0-4.0); Hematocrit 23.9 % (39.0-51.0); Hemoglobin 8.1 gm/dL (13.0-17.0); Lymph # (Auto) 0.7 th/mm3 (1.0-4.8); Lymph % (Auto) 22.9 % (9.0-44.0); Mean Corpuscular HGB Conc 34.1 % (32.0-36.0); Mean Corpuscular Hemoglobin 34.7 pg (27.0-34.0); Mean Corpuscular Volume 101.9 fL (80.0-100.0); Mean Platelet Volume 8.1 fL (7.0-11.0); Mono # (Auto) 0.5 th/mm3 (0.0-0.9); Neut # (Auto) 1.9 th/mm3 (1.8-7.7); Neut % (Auto) 56.9 % (16.0-70.0); Platelet Count 68 th/mm3 (150-450); Red Blood Count 2.35 mil/mm3 (4.50-5.90); Red Cell Distribution Width 19.5 % (11.6-17.2); White Blood Count 3.3 th/mm3 (4.0-11.0)
[2018-03-23 08:23] LABS: Albumin 2.7 g/dL (3.4-5.0); Anion Gap 6 meq/L (5-15); Aspartate Aminotransferase 51 U/L (15-37); Blood Urea Nitrogen 12 mg/dL (7-18); Calcium 8.1 mg/dL (8.5-10.1); Carbon Dioxide 29.3 meq/L (21.0-32.0); Chloride 107 meq/L (98-107); Glomerular Filtration Rate Greater Than 89 mL/min (>89); Glucose,Random 75 mg/dL (74-106); Magnesium 1.8 mg/dL (1.5-2.5); Potassium 3.7 meq/L (3.5-5.1); Sodium 142 meq/L (136-145)
[2018-03-23 08:29] LABS: Alanine Aminotransferase 31 U/L (12-78); Alkaline Phosphatase 83 U/L (45-117); Phosphorus 2.6 mg/dL (2.5-4.9); Total Protein 6.4 g/dL (6.4-8.2)
[2018-03-23 08:47] LABS: Platelet Morphology Normal (Normal); Target Cells 1+
[2018-03-23 08:48] LABS: Stomatocytes 1+
[2018-03-23] MEDS: rifAXIMin 550 MG Tablet PO SCH ×2 (08:48→21:16)
[2018-03-23 11:51] LABS: HCV Genotype 1a (Not Detecte)
--- NOTE | 2018-03-23 12:15 | P.PNIM ---
Subjective Interval history: 7-15 patient feels more distended full despite diuretics voiding well 7-16 HAD PARACENTESIS 6.3LITERS TODAY NOT HAVING VERY FREQUENT BM'S PER PATIENT AND FAMILY AT BEDSIDE WILL CHECK AM LABS CONTINUE TO AKANKSHA LOPEZ RN AND PT AND FAMILY AND CM 7- PATIENT HAS ANEMIA TO HAVE EGD TOMORROW AMMONIA IS IMPROVED AM LABS MAY NEED A TRANSFUSION EGD FOR VARICES ISSUES 718 had EGD TODAY SHOWED VARICES AND WATERMELON STOMACH AND GASTRIC AVMS ALSO TRANSFUSED 2 UNITS PRBC AND 2 UNITS FFP AM LABS AMMONIA LEVEL IS ELEVATED AGAIN AM LABD DW RN AND PT AND CM AND FAMILY 7- COMPLAINS OF ITCHING WANTS SOMETHING FOR PAIN --WILL TRY ULTRAM- GOOD FOR LIVER PATIENT AMMONIA LEVEL GOING UP NEEDS MORE LACTULOSE DW RN AND PATIENT AND AND CM Physical Exam Vital signs: Vital Signs 03/22/18 12:30 03/22/18 12:45 03/22/18 13:16 Temperature 98.2 F 97.9 F 98.3 F Pulse Rate 73 78 83 Respiratory Rate 18 18 18 Blood Pressure 103/53 L 112/57 L 129/76 Pulse Oximetry 100 100 100 03/22/18 14:29 03/22/18 14:35 03/22/18 15:23 Temperature 97.1 F L 98.1 F Pulse Rate 68 66 58 L Respiratory Rate 18 14 Blood Pressure 122/62 122/61 121/58 L Pulse Oximetry 99 100 03/22/18 15:25 03/22/18 16:00 03/22/18 16:08 Temperature 98.1 F 98.2 F Pulse Rate 58 L 70 68 Respiratory Rate 18 Blood Pressure 121/58 L 112/67 Pulse Oximetry 98 100 03/22/18 20:00 03/23/18 00:00 03/23/18 04:00 Temperature 98.0 F 98.1 F 98.1 F Pulse Rate 73 65 103 H Respiratory Rate 18 20 18 Blood Pressure 116/56 L 133/60 108/52 L Pulse Oximetry 100 99 100 03/23/18 08:00 Temperature 97.9 F Pulse Rate 67 Respiratory Rate 18 Blood Pressure 123/80 Pulse Oximetry 100 Intake & Output 03/22/18 03/23/18 03/23/18 18:59 06:59 18:59 Intake Total 1445 / 1445 200 / 200 480 / 480 Output Total 1800 / 1800 Balance 1445 / 1445 200 / 200 -1320 / -1320 Weight 138.9 kg Intake: IV 600 / 600 200 / 200 Flexbumin 25% Inj 100 ML @ 60 100 / 100 200 / 200 mls/hr IV.SIG Q8HR SHOSHANA Rx#: [id number] LR 1000 mL Inj 1,000 ML @ 30 500 / 500 mls/hr IV.SIG .Q24H SHOSHANA Rx#: [id number] Oral 480 / 480 Other 270 / 270 Plasma Thawed 5 Day Cp2d Unit 270 / 270 [id number] Intake (Blood Product) Amt 575 / 575 Plasma Thawed 5 Day Cp2d Unit 305 / 305 [id number] Plasma Thawed 5 Day Cp2d Unit 270 / 270 [id number] Plasma Thawed 5 Day Cp2d Unit 0 / 0 [id number] Rbc As-3 Leukoreduced Unit 0 / 0 [id number] Rbc As-3 Leukoreduced Unit 0 / 0 [id number] Output: Urine 1800 / 1800 Other: # Voids 1 Date of Last Bowel Movement 03/21/18 03/21/18 # Bowel Movements 0 Narrative: GENERAL: AWAKE ALERT AND ORIENTED X3 TALKATIVE AND COOPERATIVE TODAY SKIN: Warm and dry. HEAD: Atraumatic. Normocephalic. EYES: Pupils equal and round. No scleral icterus. No injection or drainage. ENT: No nasal bleeding or discharge. Mucous membranes pink and moist. NECK: Trachea midline. No JVD. SUPPLE CARDIOVASCULAR: Regular rate and rhythm. S1, S2 NO S3 OR S4 RESPIRATORY: No accessory muscle use. Clear to auscultation. Breath sounds equal bilaterally. GASTROINTESTINAL: Abdomen soft, non-tender, nondistended. Hepatic and splenic margins not palpable. SOFT NOT DISTENDED SP PARACENTESIS MUSCULOSKELETAL: Extremities without clubbing, cyanosis, PLUS 1 TO 2 EDEMA BL LE IMPROVED No obvious deformities. NEUROLOGICAL: Awake and alert. No obvious cranial nerve deficits. Motor grossly within normal limits. Five out of 5 muscle strength in the arms and legs. Normal speech. PSYCHIATRIC: Appropriate mood and affect; insight and judgment normal. Results - Labs CBC & Chem 7: 03/23/18 07:27 03/23/18 07:27 Laboratory Results - last 24 hr 03/19/18 03/22/18 03/22/18 06:35 10:54 12:15 WBC RBC Hgb Hct MCV MCH MCHC RDW Plt Count MPV Prelim Diff (Auto) Neut % (Auto) Lymph % (Auto) [place] % (Auto) Eos % (Auto) Baso % (Auto) Neut # (Auto) Lymph # (Auto) [place] # (Auto) Eos # (Auto) Baso # (Auto) WBC Differential Diff Scan Differential Comment Platelet Estimate Platelet Morphology Target Cells Stomatocytes PT INR Sodium Potassium Chloride Carbon Dioxide Anion Gap BUN Creatinine Estimated GFR Random Glucose Calcium Phosphorus Magnesium Total Bilirubin AST ALT Alkaline Phosphatase Ammonia Total Protein Albumin HCV RNA Genotype 1a Blood Type O Positive Antibody Screen Negative MTS Gel Crossmatch See Detail Blood Bank Comment 03/23/18 03/23/18 03/23/18 07:27 07:27 07:27 WBC 3.3 L RBC 2.35 L Hgb 8.1 L Hct 23.9 L MCV 101.9 H D MCH 34.7 H MCHC 34.1 RDW 19.5 H D Plt Count 68 L MPV 8.1 Prelim Diff (Auto) Slide review pending Neut % (Auto) 56.9 Lymph % (Auto) 22.9 [place] % (Auto) 15.0 H Eos % (Auto) 4.4 H Baso % (Auto) 0.8 Neut # (Auto) 1.9 Lymph # (Auto) 0.7 L [place] # (Auto) 0.5 Eos # (Auto) 0.1 Baso # (Auto) 0.0 WBC Differential . Diff Scan Auto diff confirmed Differential Comment . Platelet Estimate Low L Platelet Morphology Normal Target Cells 1+ H Stomatocytes 1+ H PT 18.7 H INR 1.8 Sodium 142 Potassium 3.7 Chloride 107 Carbon Dioxide 29.3 Anion Gap 6 BUN 12 Creatinine 0.99 Estimated GFR Greater than 89 Random Glucose 75 Calcium 8.1 L Phosphorus 2.6 Magnesium 1.8 Total Bilirubin 7.5 H AST 51 H ALT 31 Alkaline Phosphatase 83 Ammonia Total Protein 6.4 Albumin 2.7 L HCV RNA Genotype Blood Type Antibody Screen MTS Gel Crossmatch Blood Bank Comment 03/23/18 07:27 WBC RBC Hgb Hct MCV MCH MCHC RDW Plt Count MPV Prelim Diff (Auto) Neut % (Auto) Lymph % (Auto) [place] % (Auto) Eos % (Auto) Baso % (Auto) Neut # (Auto) Lymph # (Auto) [place] # (Auto) Eos # (Auto) Baso # (Auto) WBC Differential Diff Scan Differential Comment Platelet Estimate Platelet Morphology Target Cells Stomatocytes PT INR Sodium Potassium Chloride Carbon Dioxide Anion Gap BUN Creatinine Estimated GFR Random Glucose Calcium Phosphorus Magnesium Total Bilirubin AST ALT Alkaline Phosphatase Ammonia 73 H Total Protein Albumin HCV RNA Genotype Blood Type Antibody Screen MTS Gel Crossmatch Blood Bank Comment Microbiology 03/20/18 08:40 Blood - Peripheral Aerobic Blood Culture - Preliminary No growth in 3 days 03/20/18 08:40 Blood - Peripheral Anaerobic Blood Culture - Preliminary No growth in 3 days 03/20/18 08:45 Blood - Peripheral Aerobic Blood Culture - Preliminary No growth in 3 days 03/20/18 08:45 Blood - Peripheral Anaerobic Blood Culture - Preliminary No growth in 3 days - Procedures PARACENTESIS 7-16 6.3 LITERS OFF Date of procedure: 03/22/18 Pre-op diagnosis: Worsening anemia, cirrhosis Post-op diagnosis: other Procedure: PROCEDURE PERFORMED EGD with cautery INDICATION FOR PROCEDURE Worsening anemia, cirrhosis PROCEDURE: The procedure, risks and benefits were discussed with Patient/POA and informed consent was obtained. Anesthesia sedated Patient with Diprivan. Patient was placed in the left lateral decubitus position. EGD: The Pentax videoscope was introduced through the oropharynx and advanced to the second portion of the duodenum under direct visualization. Retroflexion was performed in the stomach. FINDINGS: The esophagus patient had 2 columns of grade 1 esophageal varices with no stigmata of recent bleed The stomach there was an AVM that was bleeding in the mid gastric body this was cauterized and the patient was also showing signs of watermelon stomach in the antrum these 2 were cauterized The duodenum this was normal ESTIMATED BLOOD LOSS: Minimal SPECIMENS REMOVED: None COMPLICATIONS: None IMPRESSION: Esophageal varices grade 1 Gastric AVM Watermelon stomach PLAN: Continue with current supportive care Correct coagulopathy Monitor labs and transfuse as needed EGD in 3 months Clear liquid diet for today PPI Anesthesia: MAC Surgeon: Charles Lopez Condition: stable Disposition: floor Documented By: Charles Lopez MD 03/22/18 4229 Assessment and Plan - Assessment (1) Hepatic encephalopathy Code(s): K72.90 - Hepatic failure, unspecified without coma Status: Acute (2) Liver disease, chronic, with cirrhosis Code(s): K74.60 - Unspecified cirrhosis of liver; K76.9 - Liver disease, unspecified Status: Chronic (3) Ascites of liver Code(s): R18.8 - Other ascites Status: Chronic - Plan 62 years old male Hepatic encephalopathy history of liver cirrhosis- MS much improved History of Hep C History of alcohol use sober for years patient with elevated ammonia levels due to nonadherence to lactulose. restart home lactulose and counseled both patient and on the proper medication adherence. ON RIFAXIMIN ff INR 1.9 Pruritus- likely from cirrhosis History of psoriasis doubt this as cause - plaque lesions are not inflamed and red consider bile acid sequestrants- if persists- STARTED ON CHOLESTYRAMINE REcurrent ascites- per patient and had paracentesis done 02/08 - 7 L out SP PARACENTESIS 03-20 6.3 LITERS US with ascites- patient clinically feel full on exam more tense today c/w yesterday Continue on IV Lasix and spironolactone. FF electrolytes GI ff US consulted for paracentesis tomorrow am- get INR down will give 2 units FFP now and x 1 Vit K 10 mg SQ tonight for paracentesis in am INR in am patient agrees to paracentesis now- 03-20 PARACENTESIS 6.3 LITERS Tachycardia- rate better- EKG sinus with PACs - continue to monitor on telemetry - d/w - no history of arrhytmia, or HTN, - get an echo- ff eletrolytes closely - started po KCL bid (at one point was on potassium supplements) - monitor BMP closely on aldactone and lasix Chronic kidney disease stage II. Monitor on diuretics. Avoid nephrotoxins. History of BPH -continue on Flomax 0,4 mg daily Anemia- likely chronic - INR 1.9 - start PPI - GI ff HEMOGLOBIN NOW 7.3 TO HAVE EGD TOMORROWN -18 ANEMIA 6.9 WAS TRANSFUSED 2 UNITS PRBC AND 2 UNITS FFP EGD 03-22 SHOWED VARICES AND WATERMELON STOMACH AND GASTRIC AVMS WILL START ULTRAM FOR PAIN INCREASE LACTULOSE DUE TO RISING AMMONIA LEVEL DVT prophylaxisno anticoagulation secondary to history of liver cirrhosis Case management consult- needs assistance "we don't have anything" Code Status: FULL CODE Discussed Condition With: RN AND PT AND AND CM Discharge Planning: WILL NEED HELP WITH [facility]
--- NOTE | 2018-03-23 15:22 | P.PNGI ---
Subjective Interval history: Pt had a BM last night, per no obvious blood in stool or black, tarry stools. No nausea or vomiting. Pt with some abdominal pain that he thinks is more localized to the site of previous paracentesis. <Maryam Braden - Last Filed: 03/23/18 15:17> Physical Exam Vital signs: Vital Signs 03/22/18 15:23 03/22/18 15:25 03/22/18 16:00 Temperature 98.1 F Pulse Rate 58 L 58 L 70 Respiratory Rate 14 Blood Pressure 121/58 L 121/58 L Pulse Oximetry 98 03/22/18 16:08 03/22/18 20:00 03/23/18 00:00 Temperature 98.2 F 98.0 F 98.1 F Pulse Rate 68 73 65 Respiratory Rate 18 18 20 Blood Pressure 112/67 116/56 L 133/60 Pulse Oximetry 100 100 99 03/23/18 04:00 03/23/18 08:00 03/23/18 08:55 Temperature 98.1 F 97.9 F Pulse Rate 103 H 67 131 H Respiratory Rate 18 18 Blood Pressure 108/52 L 123/80 Pulse Oximetry 100 100 03/23/18 12:00 Temperature 98.3 F Pulse Rate 93 H Respiratory Rate 18 Blood Pressure 98/73 L Pulse Oximetry 97 Intake & Output 03/22/18 03/23/18 03/23/18 18:59 06:59 18:59 Intake Total 1445 / 1445 200 / 200 580 / 580 Output Total 1800 / 1800 Balance 1445 / 1445 200 / 200 -1220 / -1220 Weight 138.9 kg Intake: IV 600 / 600 200 / 200 100 / 100 Flexbumin 25% Inj 100 ML @ 60 100 / 100 200 / 200 100 / 100 mls/hr IV.SIG Q8HR SHOSHANA Rx#: [id number] LR 1000 mL Inj 1,000 ML @ 30 500 / 500 mls/hr IV.SIG .Q24H SHOSHANA Rx#: [id number] Oral 480 / 480 Other 270 / 270 Plasma Thawed 5 Day Cp2d Unit 270 / 270 [id number] Intake (Blood Product) Amt 575 / 575 Plasma Thawed 5 Day Cp2d Unit 305 / 305 [id number] Plasma Thawed 5 Day Cp2d Unit 270 / 270 [id number] Plasma Thawed 5 Day Cp2d Unit 0 / 0 [id number] Rbc As-3 Leukoreduced Unit 0 / 0 [id number] Rbc As-3 Leukoreduced Unit 0 / 0 [id number] Output: Urine 1800 / 1800 Other: # Voids 1 Date of Last Bowel Movement 03/21/18 03/21/18 03/23/18 # Bowel Movements 0 - Constitutional no acute distress - Routine HEENT Exam Head: Present: normocephalic, atraumatic - Routine Respiratory Exam Absent: accessory muscle use - Routine Cardiovascular Exam Present: irregularly irregular - Routine Abdominal Exam Present: soft, normoactive bowel sounds, distended. Absent: tenderness - Routine Skin Exam Present: dry, warm - Routine Neurological Exam Present: alert, oriented X3 <Maryam Braden - Last Filed: 03/23/18 15:17> Vital signs: Vital Signs 03/23/18 00:00 03/23/18 04:00 03/23/18 08:00 Temperature 98.1 F 98.1 F 97.9 F Pulse Rate 65 103 H 67 Respiratory Rate 20 18 18 Blood Pressure 133/60 108/52 L 123/80 Pulse Oximetry 99 100 100 03/23/18 08:55 03/23/18 12:00 03/23/18 12:15 Temperature 98.3 F Pulse Rate 131 H 93 H 137 H Respiratory Rate 18 Blood Pressure 98/73 L Pulse Oximetry 97 03/23/18 16:00 03/23/18 16:59 03/23/18 20:00 Temperature 98.1 F 98.2 F Pulse Rate 97 H 104 H 101 H Respiratory Rate 18 20 Blood Pressure 106/53 L 114/60 Pulse Oximetry 99 97 Intake & Output 03/23/18 03/23/18 03/24/18 06:59 18:59 06:59 Intake Total 200 / 200 1580 / 1580 Output Total 2600 / 2600 Balance 200 / 200 -1020 / -1020 Weight 138.9 kg Intake: IV 200 / 200 100 / 100 Flexbumin 25% Inj 100 ML @ 60 200 / 200 100 / 100 mls/hr IV.SIG Q8HR SHOSHANA Rx#: [id number] Oral 1480 / 1480 Output: Urine 2600 / 2600 Other: # Voids 1 Date of Last Bowel Movement 03/21/18 03/23/18 # Bowel Movements 1 <Sa Johnud E - Last Filed: 03/23/18 22:52> Results - Labs CBC & Chem 7: 03/23/18 07:27 03/23/18 07:27 Laboratory Results - last 24 hr 03/19/18 03/22/18 03/23/18 06:35 12:15 07:27 WBC 3.3 L RBC 2.35 L Hgb 8.1 L Hct 23.9 L MCV 101.9 H D MCH 34.7 H MCHC 34.1 RDW 19.5 H D Plt Count 68 L MPV 8.1 Prelim Diff (Auto) Slide review pending Neut % (Auto) 56.9 Lymph % (Auto) 22.9 [place] % (Auto) 15.0 H Eos % (Auto) 4.4 H Baso % (Auto) 0.8 Neut # (Auto) 1.9 Lymph # (Auto) 0.7 L [place] # (Auto) 0.5 Eos # (Auto) 0.1 Baso # (Auto) 0.0 WBC Differential . Diff Scan Auto diff confirmed Differential Comment . Platelet Estimate Low L Platelet Morphology Normal Target Cells 1+ H Stomatocytes 1+ H PT INR Sodium Potassium Chloride Carbon Dioxide Anion Gap BUN Creatinine Estimated GFR Random Glucose Calcium Phosphorus Magnesium Total Bilirubin AST ALT Alkaline Phosphatase Ammonia Total Protein Albumin HCV RNA Genotype 1a Blood Type O Positive Antibody Screen Negative MTS Gel Crossmatch See Detail 03/23/18 03/23/18 03/23/18 07:27 07:27 07:27 WBC RBC Hgb Hct MCV MCH MCHC RDW Plt Count MPV Prelim Diff (Auto) Neut % (Auto) Lymph % (Auto) [place] % (Auto) Eos % (Auto) Baso % (Auto) Neut # (Auto) Lymph # (Auto) [place] # (Auto) Eos # (Auto) Baso # (Auto) WBC Differential Diff Scan Differential Comment Platelet Estimate Platelet Morphology Target Cells Stomatocytes PT 18.7 H INR 1.8 Sodium 142 Potassium 3.7 Chloride 107 Carbon Dioxide 29.3 Anion Gap 6 BUN 12 Creatinine 0.99 Estimated GFR Greater than 89 Random Glucose 75 Calcium 8.1 L Phosphorus 2.6 Magnesium 1.8 Total Bilirubin 7.5 H AST 51 H ALT 31 Alkaline Phosphatase 83 Ammonia 73 H Total Protein 6.4 Albumin 2.7 L HCV RNA Genotype Blood Type Antibody Screen MTS Gel Crossmatch Microbiology 03/20/18 08:40 Blood - Peripheral Aerobic Blood Culture - Preliminary No growth in 3 days 03/20/18 08:40 Blood - Peripheral Anaerobic Blood Culture - Preliminary No growth in 3 days 03/20/18 08:45 Blood - Peripheral Aerobic Blood Culture - Preliminary No growth in 3 days 03/20/18 08:45 Blood - Peripheral Anaerobic Blood Culture - Preliminary No growth in 3 days - Procedures PARACENTESIS 7-16 6.3 LITERS OFF Date of procedure: 03/22/18 Pre-op diagnosis: Worsening anemia, cirrhosis Post-op diagnosis: other Procedure: PROCEDURE PERFORMED EGD with cautery INDICATION FOR PROCEDURE Worsening anemia, cirrhosis PROCEDURE: The procedure, risks and benefits were discussed with Patient/POA and informed consent was obtained. Anesthesia sedated Patient with Diprivan. Patient was placed in the left lateral decubitus position. EGD: The Pentax videoscope was introduced through the oropharynx and advanced to the second portion of the duodenum under direct visualization. Retroflexion was performed in the stomach. FINDINGS: The esophagus patient had 2 columns of grade 1 esophageal varices with no stigmata of recent bleed The stomach there was an AVM that was bleeding in the mid gastric body this was cauterized and the patient was also showing signs of watermelon stomach in the antrum these 2 were cauterized The duodenum this was normal ESTIMATED BLOOD LOSS: Minimal SPECIMENS REMOVED: None COMPLICATIONS: None IMPRESSION: Esophageal varices grade 1 Gastric AVM Watermelon stomach PLAN: Continue with current supportive care Correct coagulopathy Monitor labs and transfuse as needed EGD in 3 months Clear liquid diet for today PPI Anesthesia: MAC Surgeon: Charles Lopez Condition: stable Disposition: floor Documented By: Charles Lopez MD 03/22/18 7730 <Maryam Braden - Last Filed: 03/23/18 15:17> - Labs CBC & Chem 7: 03/23/18 07:27 03/23/18 07:27 Laboratory Results - last 24 hr 03/19/18 03/23/18 03/23/18 06:35 07:27 07:27 WBC 3.3 L RBC 2.35 L Hgb 8.1 L Hct 23.9 L MCV 101.9 H D MCH 34.7 H MCHC 34.1 RDW 19.5 H D Plt Count 68 L MPV 8.1 Prelim Diff (Auto) Slide review pending Neut % (Auto) 56.9 Lymph % (Auto) 22.9 [place] % (Auto) 15.0 H Eos % (Auto) 4.4 H Baso % (Auto) 0.8 Neut # (Auto) 1.9 Lymph # (Auto) 0.7 L [place] # (Auto) 0.5 Eos # (Auto) 0.1 Baso # (Auto) 0.0 WBC Differential . Diff Scan Auto diff confirmed Differential Comment . Platelet Estimate Low L Platelet Morphology Normal Target Cells 1+ H Stomatocytes 1+ H PT 18.7 H INR 1.8 Sodium Potassium Chloride Carbon Dioxide Anion Gap BUN Creatinine Estimated GFR Random Glucose Calcium Phosphorus Magnesium Total Bilirubin AST ALT Alkaline Phosphatase Ammonia Total Protein Albumin HCV RNA Genotype 1a HCV RNA (PCR) IUs/ml [id number] H HCV RNA PCR log IUs/ml 5.50 H 03/23/18 03/23/18 07:27 07:27 WBC RBC Hgb Hct MCV MCH MCHC RDW Plt Count MPV Prelim Diff (Auto) Neut % (Auto) Lymph % (Auto) [place] % (Auto) Eos % (Auto) Baso % (Auto) Neut # (Auto) Lymph # (Auto) [place] # (Auto) Eos # (Auto) Baso # (Auto) WBC Differential Diff Scan Differential Comment Platelet Estimate Platelet Morphology Target Cells Stomatocytes PT INR Sodium 142 Potassium 3.7 Chloride 107 Carbon Dioxide 29.3 Anion Gap 6 BUN 12 Creatinine 0.99 Estimated GFR Greater than 89 Random Glucose 75 Calcium 8.1 L Phosphorus 2.6 Magnesium 1.8 Total Bilirubin 7.5 H AST 51 H ALT 31 Alkaline Phosphatase 83 Ammonia 73 H Total Protein 6.4 Albumin 2.7 L HCV RNA Genotype HCV RNA (PCR) IUs/ml HCV RNA PCR log IUs/ml Microbiology 03/20/18 08:40 Blood - Peripheral Aerobic Blood Culture - Preliminary No growth in 3 days 03/20/18 08:40 Blood - Peripheral Anaerobic Blood Culture - Preliminary No growth in 3 days 03/20/18 08:45 Blood - Peripheral Aerobic Blood Culture - Preliminary No growth in 3 days 03/20/18 08:45 Blood - Peripheral Anaerobic Blood Culture - Preliminary No growth in 3 days <Charles Lopez E - Last Filed: 03/23/18 22:52> Assessment and Plan - Plan Assessment: - Hepatitis C, treatment naive with recent diagnosis of cirrhosis while hospitalized at [facility] in [place] in February. Pt was discharged home with Lasix, Spironolactone, and Lactulose. Has not been taking Lactulose as prescribed because he thought this was for his bowel movements. Pt reports was advised for possibly Harvoni, because he is self pay and they offer financial assistance Complaints of abdominal and lower extremity swelling, worse over the past couple days. Had a paracentesis done in February at [facility] with 7 L of fluid removed. S/P paracentesis (03/20) 6300 mL of fluid removed - Hypoalbuminemia, thrombocytopenia, and coagulopathy noted- secondary to cirrhosis (03/20) S/P paracentesis earlier today with 6.3 L of fluid removed. No improvement in LFTs today. (03/21) Pt with drop in H/H today, hgb currently 7.3. Denies any obvious GIB. Last BM was early this morning, diarrhea. Denies nausea, vomiting, abdominal pain. (03/23) Pt S/P EGD yesterday --> Esophageal varices grade 1, Gastric AVM that was actively bleeding in the mid gastric body S/P cauterization, signs of watermelon stomach in the antrum S/P cauterization. H/H stable today. Per pt had BM last night, no obvious blood or black, tarry stools. No nausea and vomiting, would like diet advanced. Ammonia trending up some, pt with episode of confusion last night after receiving Atarax and Ambien. Lactulose has been increased to TID. T bili trending up today from 5.1 yesterday to 7.5 today. Plan: Monitor coagulopathy Monitor LFTs HFE pending Hepatitis C genotype and quant pending Treatment for Hep C to be started outpatient- pt reports he was advised to start Harvoni Continue with ETOH cessation Monitor Ammonia Xifaxan and Lactulose Spironolactone and Lasix Further recommendations based on clinical course Pt has been seen and examined by myself and Dr. Lopez and this note is written on his behalf <Maryam Braden - Last Filed: 03/23/18 15:17> - Attending Attestation Patient seen and examined Agree with above Continue with current supportive care Monitor labs <Charles Lopez E - Last Filed: 03/23/18 22:52>
[2018-03-23 17:52] LABS: Hepatitis C RNA (PCR) IUs/ml 314000 IU/mL (0-14)
[2018-03-23] MEDS: Zolpidem Tartrate 5 MG Tablet PO PRN (22:34)
[2018-03-24] MEDS: Albumin Human 25% Inj 100 ML IV.SIG SCH ×3 (05:49→22:13)
[2018-03-24] MEDS: rifAXIMin 550 MG Tablet PO SCH ×2 (09:05→20:19)
[2018-03-24 10:13] LABS: Baso % (Auto) 1.4 % (0.0-2.0); Eos # (Auto) 0.1 th/mm3 (0.0-0.4); Eos % (Auto) 3.5 % (0.0-4.0); Hematocrit 24.1 % (39.0-51.0); Lymph # (Auto) 0.9 th/mm3 (1.0-4.8); Lymph % (Auto) 24.6 % (9.0-44.0); Mean Corpuscular HGB Conc 33.2 % (32.0-36.0); Mean Corpuscular Hemoglobin 34.1 pg (27.0-34.0); Mean Corpuscular Volume 102.7 fL (80.0-100.0); Mono # (Auto) 0.5 th/mm3 (0.0-0.9); Mono % (Auto) 13.2 % (0.0-8.0); Neut % (Auto) 57.3 % (16.0-70.0); Platelet Count 65 th/mm3 (150-450); Red Blood Count 2.34 mil/mm3 (4.50-5.90); Red Cell Distribution Width 19.8 % (11.6-17.2); White Blood Count 3.5 th/mm3 (4.0-11.0)
[2018-03-24 10:27] LABS: INR 1.9 Ratio; Prothrombin Time 19.7 sec (9.8-11.6)
[2018-03-24 10:37] LABS: Albumin 3.1 g/dL (3.4-5.0); Anion Gap 7 meq/L (5-15); Aspartate Aminotransferase 51 U/L (15-37); Blood Urea Nitrogen 11 mg/dL (7-18); Calcium 8.6 mg/dL (8.5-10.1); Carbon Dioxide 28.4 meq/L (21.0-32.0); Chloride 108 meq/L (98-107); Glomerular Filtration Rate 83 mL/min (>89); Glucose,Random 124 mg/dL (74-106); Magnesium 1.9 mg/dL (1.5-2.5); Potassium 3.5 meq/L (3.5-5.1); Sodium 143 meq/L (136-145)
[2018-03-24 10:44] LABS: Alanine Aminotransferase 32 U/L (12-78); Alkaline Phosphatase 81 U/L (45-117); Phosphorus 2.1 mg/dL (2.5-4.9); Total Protein 6.7 g/dL (6.4-8.2)
[2018-03-24 11:03] LABS: Target Cells 1+
[2018-03-24 11:04] LABS: Platelet Morphology Normal (Normal)
--- NOTE | 2018-03-24 11:34 | P.PNIM ---
Subjective Interval history: f/u; cirrhosis in no acute distress. mildly lethargic. has mild pain to the right lower abdomen. no fever. Physical Exam Vital signs: Vital Signs 03/23/18 12:00 03/23/18 12:15 03/23/18 16:00 Temperature 98.3 F 98.1 F Pulse Rate 93 H 137 H 97 H Respiratory Rate 18 18 Blood Pressure 98/73 L 106/53 L Pulse Oximetry 97 99 03/23/18 16:59 03/23/18 20:00 03/24/18 00:00 Temperature 98.2 F 98.1 F Pulse Rate 104 H 75 95 H Respiratory Rate 20 20 Blood Pressure 114/60 109/50 L Pulse Oximetry 97 99 03/24/18 04:00 03/24/18 08:00 Temperature 97.2 F L 98.5 F Pulse Rate 88 90 Respiratory Rate 20 18 Blood Pressure 130/56 L 111/59 L Pulse Oximetry 99 99 Intake & Output 03/23/18 03/24/18 03/24/18 18:59 06:59 18:59 Intake Total 1580 / 1580 220 / 220 Output Total 2600 / 2600 100 / 100 Balance -1020 / -1020 120 / 120 Weight 137.7 kg Intake: IV 100 / 100 100 / 100 Flexbumin 25% Inj 100 ML @ 60 100 / 100 100 / 100 mls/hr IV.SIG Q8HR [facility] Rx#: [id number] Oral 1480 / 1480 120 / 120 Output: Urine 2600 / 2600 100 / 100 Other: # Voids 1 Date of Last Bowel Movement 03/23/18 # Bowel Movements 1 1 - Constitutional no acute distress - Routine Respiratory Exam Present: CTA bilaterally - Routine Cardiovascular Exam Present: RRR - Routine Abdominal Exam Present: soft, tenderness - Routine Extremities Exam Present: edema (bilateral pedal edema.) - Routine Neurological Exam Present: alert (mildlyb lethargic.) Results - Labs CBC & Chem 7: 03/24/18 09:15 03/24/18 09:59 Laboratory Results - last 24 hr 03/19/18 03/24/18 03/24/18 06:35 09:15 09:59 WBC 3.5 L RBC 2.34 L Hgb 8.0 L Hct 24.1 L MCV 102.7 H MCH 34.1 H MCHC 33.2 RDW 19.8 H Plt Count 65 L MPV 8.0 Prelim Diff (Auto) Slide review pending Neut % (Auto) 57.3 Lymph % (Auto) 24.6 [place] % (Auto) 13.2 H Eos % (Auto) 3.5 Baso % (Auto) 1.4 Neut # (Auto) 2.0 Lymph # (Auto) 0.9 L [place] # (Auto) 0.5 Eos # (Auto) 0.1 Baso # (Auto) 0.0 WBC Differential . Diff Scan Auto diff confirmed Differential Comment . Platelet Estimate Low L Platelet Morphology Normal Target Cells 1+ H PT 19.7 H INR 1.9 Sodium Potassium Chloride Carbon Dioxide Anion Gap BUN Creatinine Estimated GFR Random Glucose Calcium Phosphorus Magnesium Total Bilirubin AST ALT Alkaline Phosphatase Ammonia Total Protein Albumin HCV RNA Genotype 1a HCV RNA (PCR) IUs/ml 932819 H HCV RNA PCR log IUs/ml 5.50 H 03/24/18 03/24/18 09:59 09:59 WBC RBC Hgb Hct MCV MCH MCHC RDW Plt Count MPV Prelim Diff (Auto) Neut % (Auto) Lymph % (Auto) [place] % (Auto) Eos % (Auto) Baso % (Auto) Neut # (Auto) Lymph # (Auto) [place] # (Auto) Eos # (Auto) Baso # (Auto) WBC Differential Diff Scan Differential Comment Platelet Estimate Platelet Morphology Target Cells PT INR Sodium 143 Potassium 3.5 Chloride 108 H Carbon Dioxide 28.4 Anion Gap 7 BUN 11 Creatinine 1.09 Estimated GFR 83 L Random Glucose 124 H Calcium 8.6 Phosphorus 2.1 L Magnesium 1.9 Total Bilirubin 7.0 H AST 51 H ALT 32 Alkaline Phosphatase 81 Ammonia 81 H Total Protein 6.7 Albumin 3.1 L HCV RNA Genotype HCV RNA (PCR) IUs/ml HCV RNA PCR log IUs/ml Microbiology 03/20/18 08:40 Blood - Peripheral Aerobic Blood Culture - Preliminary No growth in 4 days 03/20/18 08:40 Blood - Peripheral Anaerobic Blood Culture - Preliminary No growth in 4 days 03/20/18 08:45 Blood - Peripheral Aerobic Blood Culture - Preliminary No growth in 4 days 03/20/18 08:45 Blood - Peripheral Anaerobic Blood Culture - Preliminary No growth in 4 days - Procedures PARACENTESIS 7-16 6.3 LITERS OFF Date of procedure: 03/22/18 Pre-op diagnosis: Worsening anemia, cirrhosis Post-op diagnosis: other Procedure: PROCEDURE PERFORMED EGD with cautery INDICATION FOR PROCEDURE Worsening anemia, cirrhosis PROCEDURE: The procedure, risks and benefits were discussed with Patient/POA and informed consent was obtained. Anesthesia sedated Patient with Diprivan. Patient was placed in the left lateral decubitus position. EGD: The Pentax videoscope was introduced through the oropharynx and advanced to the second portion of the duodenum under direct visualization. Retroflexion was performed in the stomach. FINDINGS: The esophagus patient had 2 columns of grade 1 esophageal varices with no stigmata of recent bleed The stomach there was an AVM that was bleeding in the mid gastric body this was cauterized and the patient was also showing signs of watermelon stomach in the antrum these 2 were cauterized The duodenum this was normal ESTIMATED BLOOD LOSS: Minimal SPECIMENS REMOVED: None COMPLICATIONS: None IMPRESSION: Esophageal varices grade 1 Gastric AVM Watermelon stomach PLAN: Continue with current supportive care Correct coagulopathy Monitor labs and transfuse as needed EGD in 3 months Clear liquid diet for today PPI Anesthesia: MAC Surgeon: Charles Lopez Condition: stable Disposition: floor Documented By: Charles Lopez MD 03/22/18 4925 Assessment and Plan - Assessment (1) Hepatic encephalopathy Code(s): K72.90 - Hepatic failure, unspecified without coma Status: Acute (2) Liver disease, chronic, with cirrhosis Code(s): K74.60 - Unspecified cirrhosis of liver; K76.9 - Liver disease, unspecified Status: Chronic (3) Ascites of liver Code(s): R18.8 - Other ascites Status: Chronic - Plan Hepatic encephalopathy history of liver cirrhosis- mental status has improved- although mildly lethargic today. History of Hep C History of alcohol use sober for years patient with elevated ammonia levels due to nonadherence to lactulose. restarted home lactulose and counseled both patient and on the proper medication adherence. ON RIFAXIMIN Pruritus- likely from cirrhosis History of psoriasis doubt this as cause - plaque lesions are not inflamed and red consider bile acid sequestrants- if persists- STARTED ON CHOLESTYRAMINE REcurrent ascites- per patient and had paracentesis done / - 7 L out SP PARACENTESIS 7-16 6.3 LITERS US with ascites- Continue on IV Lasix and spironolactone. FF electrolytes GI ff Tachycardia- rate better- EKG sinus with PACs - continue to monitor on telemetry - d/w - no history of arrhytmia, or HTN, - get an echo- ff eletrolytes closely - started po KCL bid (at one point was on potassium supplements) - monitor BMP closely on aldactone and lasix Chronic kidney disease stage II. Monitor on diuretics. Avoid nephrotoxins. History of BPH -continue on Flomax 0,4 mg daily Anemia- likely chronic - started PPI - GI ff s/p EGD 03-22 SHOWED VARICES AND WATERMELON STOMACH AND GASTRIC AVMS DVT prophylaxisno anticoagulation secondary to history of liver cirrhosis Case management consulted- needs assistance "we don't have anything" Discharge Planning: within the next one-two days if stable and cleared by GI.
--- NOTE | 2018-03-24 11:42 | P.PNGI ---
Subjective Interval history: Currently appears weakened answers simple questions only in room for support Does note some sharp abdominal pain often known, round, taut, soft bowel sounds. Decreased appetite mild nausea but no vomiting Ammonia level now 73 and responding with multiple loose stools to lactulose 3 times daily. <Eli Titus - Last Filed: 03/24/18 11:29> Physical Exam Vital signs: Vital Signs 03/23/18 12:00 03/23/18 12:15 03/23/18 16:00 Temperature 98.3 F 98.1 F Pulse Rate 93 H 137 H 97 H Respiratory Rate 18 18 Blood Pressure 98/73 L 106/53 L Pulse Oximetry 97 99 03/23/18 16:59 03/23/18 20:00 03/24/18 00:00 Temperature 98.2 F 98.1 F Pulse Rate 104 H 75 95 H Respiratory Rate 20 20 Blood Pressure 114/60 109/50 L Pulse Oximetry 97 99 03/24/18 04:00 03/24/18 08:00 Temperature 97.2 F L 98.5 F Pulse Rate 88 90 Respiratory Rate 20 18 Blood Pressure 130/56 L 111/59 L Pulse Oximetry 99 99 Intake & Output 03/23/18 03/24/18 03/24/18 18:59 06:59 18:59 Intake Total 1580 / 1580 220 / 220 Output Total 2600 / 2600 100 / 100 Balance -1020 / -1020 120 / 120 Weight 137.7 kg Intake: IV 100 / 100 100 / 100 Flexbumin 25% Inj 100 ML @ 60 100 / 100 100 / 100 mls/hr IV.SIG Q8HR [facility] Rx#: [id number] Oral 1480 / 1480 120 / 120 Output: Urine 2600 / 2600 100 / 100 Other: # Voids 1 Date of Last Bowel Movement 03/23/18 # Bowel Movements 1 1 - Constitutional mild distress - Routine HEENT Exam Head: Present: normocephalic, atraumatic ENT: Present: mucous membranes dry - Routine Neck Exam Present: supple - Routine Respiratory Exam Present: decreased breath sounds - Routine Cardiovascular Exam Present: RRR - Routine Abdominal Exam Present: tenderness (Mild and notes some sharp abdominal pain right upper quadrant and generalized) - Routine Skin Exam Present: intact (Dressing right lower quadrant clean dry and intact. Psoriasis noted on chest and abdomen) - Routine Neurological Exam Present: alert (Answer simple questions) <Eli Titus M - Last Filed: 03/24/18 11:29> Vital signs: Vital Signs 03/23/18 20:00 03/24/18 00:00 03/24/18 04:00 Temperature 98.2 F 98.1 F 97.2 F L Pulse Rate 75 95 H 88 Respiratory Rate 20 20 20 Blood Pressure 114/60 109/50 L 130/56 L Pulse Oximetry 97 99 99 03/24/18 08:00 03/24/18 12:00 03/24/18 16:00 Temperature 98.5 F 98.1 F 98.2 F Pulse Rate 90 88 86 Respiratory Rate 18 18 18 Blood Pressure 111/59 L 165/72 H 140/75 Pulse Oximetry 99 99 99 Intake & Output 03/23/18 03/24/18 03/24/18 18:59 06:59 18:59 Intake Total 1580 / 1580 220 / 220 200 / 200 Output Total 2600 / 2600 100 / 100 Balance -1020 / -1020 120 / 120 200 / 200 Weight 137.7 kg Intake: IV 100 / 100 100 / 100 200 / 200 Flexbumin 25% Inj 100 ML @ 60 100 / 100 100 / 100 200 / 200 mls/hr IV.SIG Q8HR [facility] Rx#: [id number] Oral 1480 / 1480 120 / 120 Output: Urine 2600 / 2600 100 / 100 Other: # Voids 1 Date of Last Bowel Movement 03/23/18 # Bowel Movements 1 1 <Charles Lopez - Last Filed: 03/24/18 17:39> Results - Labs CBC & Chem 7: 03/24/18 09:15 03/24/18 09:59 Laboratory Results - last 24 hr 03/19/18 03/24/18 03/24/18 06:35 09:15 09:59 WBC 3.5 L RBC 2.34 L Hgb 8.0 L Hct 24.1 L MCV 102.7 H MCH 34.1 H MCHC 33.2 RDW 19.8 H Plt Count 65 L MPV 8.0 Prelim Diff (Auto) Slide review pending Neut % (Auto) 57.3 Lymph % (Auto) 24.6 [place] % (Auto) 13.2 H Eos % (Auto) 3.5 Baso % (Auto) 1.4 Neut # (Auto) 2.0 Lymph # (Auto) 0.9 L [place] # (Auto) 0.5 Eos # (Auto) 0.1 Baso # (Auto) 0.0 WBC Differential . Diff Scan Auto diff confirmed Differential Comment . Platelet Estimate Low L Platelet Morphology Normal Target Cells 1+ H PT 19.7 H INR 1.9 Sodium Potassium Chloride Carbon Dioxide Anion Gap BUN Creatinine Estimated GFR Random Glucose Calcium Phosphorus Magnesium Total Bilirubin AST ALT Alkaline Phosphatase Ammonia Total Protein Albumin HCV RNA Genotype 1a HCV RNA (PCR) IUs/ml [id number] H HCV RNA PCR log IUs/ml 5.50 H 03/24/18 03/24/18 09:59 09:59 WBC RBC Hgb Hct MCV MCH MCHC RDW Plt Count MPV Prelim Diff (Auto) Neut % (Auto) Lymph % (Auto) [place] % (Auto) Eos % (Auto) Baso % (Auto) Neut # (Auto) Lymph # (Auto) [place] # (Auto) Eos # (Auto) Baso # (Auto) WBC Differential Diff Scan Differential Comment Platelet Estimate Platelet Morphology Target Cells PT INR Sodium 143 Potassium 3.5 Chloride 108 H Carbon Dioxide 28.4 Anion Gap 7 BUN 11 Creatinine 1.09 Estimated GFR 83 L Random Glucose 124 H Calcium 8.6 Phosphorus 2.1 L Magnesium 1.9 Total Bilirubin 7.0 H AST 51 H ALT 32 Alkaline Phosphatase 81 Ammonia 81 H Total Protein 6.7 Albumin 3.1 L HCV RNA Genotype HCV RNA (PCR) IUs/ml HCV RNA PCR log IUs/ml Microbiology 03/20/18 08:40 Blood - Peripheral Aerobic Blood Culture - Preliminary No growth in 4 days 03/20/18 08:40 Blood - Peripheral Anaerobic Blood Culture - Preliminary No growth in 4 days 03/20/18 08:45 Blood - Peripheral Aerobic Blood Culture - Preliminary No growth in 4 days 03/20/18 08:45 Blood - Peripheral Anaerobic Blood Culture - Preliminary No growth in 4 days - Procedures PARACENTESIS 7-16 6.3 LITERS OFF Date of procedure: 03/22/18 Pre-op diagnosis: Worsening anemia, cirrhosis Post-op diagnosis: other Procedure: PROCEDURE PERFORMED EGD with cautery INDICATION FOR PROCEDURE Worsening anemia, cirrhosis PROCEDURE: The procedure, risks and benefits were discussed with Patient/POA and informed consent was obtained. Anesthesia sedated Patient with Diprivan. Patient was placed in the left lateral decubitus position. EGD: The Pentax videoscope was introduced through the oropharynx and advanced to the second portion of the duodenum under direct visualization. Retroflexion was performed in the stomach. FINDINGS: The esophagus patient had 2 columns of grade 1 esophageal varices with no stigmata of recent bleed The stomach there was an AVM that was bleeding in the mid gastric body this was cauterized and the patient was also showing signs of watermelon stomach in the antrum these 2 were cauterized The duodenum this was normal ESTIMATED BLOOD LOSS: Minimal SPECIMENS REMOVED: None COMPLICATIONS: None IMPRESSION: Esophageal varices grade 1 Gastric AVM Watermelon stomach PLAN: Continue with current supportive care Correct coagulopathy Monitor labs and transfuse as needed EGD in 3 months Clear liquid diet for today PPI Anesthesia: MAC Surgeon: Charles Lopez Condition: stable Disposition: floor Documented By: Charles Lopez MD 03/22/18 1605 <Eli Titus M - Last Filed: 03/24/18 11:29> - Labs CBC & Chem 7: 03/24/18 09:15 03/24/18 09:59 Laboratory Results - last 24 hr 03/19/18 03/24/18 03/24/18 06:35 09:15 09:59 WBC 3.5 L RBC 2.34 L Hgb 8.0 L Hct 24.1 L MCV 102.7 H MCH 34.1 H MCHC 33.2 RDW 19.8 H Plt Count 65 L MPV 8.0 Prelim Diff (Auto) Slide review pending Neut % (Auto) 57.3 Lymph % (Auto) 24.6 [place] % (Auto) 13.2 H Eos % (Auto) 3.5 Baso % (Auto) 1.4 Neut # (Auto) 2.0 Lymph # (Auto) 0.9 L [place] # (Auto) 0.5 Eos # (Auto) 0.1 Baso # (Auto) 0.0 WBC Differential . Diff Scan Auto diff confirmed Differential Comment . Platelet Estimate Low L Platelet Morphology Normal Target Cells 1+ H PT 19.7 H INR 1.9 Sodium Potassium Chloride Carbon Dioxide Anion Gap BUN Creatinine Estimated GFR Random Glucose Calcium Phosphorus Magnesium Total Bilirubin AST ALT Alkaline Phosphatase Ammonia Total Protein Albumin HCV RNA (PCR) IUs/ml 193021 H HCV RNA PCR log IUs/ml 5.50 H 03/24/18 03/24/18 09:59 09:59 WBC RBC Hgb Hct MCV MCH MCHC RDW Plt Count MPV Prelim Diff (Auto) Neut % (Auto) Lymph % (Auto) [place] % (Auto) Eos % (Auto) Baso % (Auto) Neut # (Auto) Lymph # (Auto) [place] # (Auto) Eos # (Auto) Baso # (Auto) WBC Differential Diff Scan Differential Comment Platelet Estimate Platelet Morphology Target Cells PT INR Sodium 143 Potassium 3.5 Chloride 108 H Carbon Dioxide 28.4 Anion Gap 7 BUN 11 Creatinine 1.09 Estimated GFR 83 L Random Glucose 124 H Calcium 8.6 Phosphorus 2.1 L Magnesium 1.9 Total Bilirubin 7.0 H AST 51 H ALT 32 Alkaline Phosphatase 81 Ammonia 81 H Total Protein 6.7 Albumin 3.1 L HCV RNA (PCR) IUs/ml HCV RNA PCR log IUs/ml Microbiology 03/20/18 08:40 Blood - Peripheral Aerobic Blood Culture - Preliminary No growth in 4 days 03/20/18 08:40 Blood - Peripheral Anaerobic Blood Culture - Preliminary No growth in 4 days 03/20/18 08:45 Blood - Peripheral Aerobic Blood Culture - Preliminary No growth in 4 days 03/20/18 08:45 Blood - Peripheral Anaerobic Blood Culture - Preliminary No growth in 4 days <Charles Lopez - Last Filed: 03/24/18 17:39> Assessment and Plan - Plan Assessment: - Hepatitis C, treatment naive with recent diagnosis of cirrhosis while hospitalized at [facility] in [place] in February. Pt was discharged home with Lasix, Spironolactone, and Lactulose. Has not been taking Lactulose as prescribed because he thought this was for his bowel movements. Pt reports was advised for possibly Cari, because he is self pay and they offer financial assistance Complaints of abdominal and lower extremity swelling, worse over the past couple days. Had a paracentesis done in February at [facility] with 7 L of fluid removed. S/P paracentesis (03/20) 6300 mL of fluid removed - Hypoalbuminemia, thrombocytopenia, and coagulopathy noted- secondary to cirrhosis (03/20) S/P paracentesis earlier today with 6.3 L of fluid removed. No improvement in LFTs today. (03/21) Pt with drop in H/H today, hgb currently 7.3. Denies any obvious GIB. Last BM was early this morning, diarrhea. Denies nausea, vomiting, abdominal pain. (03/23) Pt S/P EGD yesterday --> Esophageal varices grade 1, Gastric AVM that was actively bleeding in the mid gastric body S/P cauterization, signs of watermelon stomach in the antrum S/P cauterization. H/H stable today. Per pt had BM last night, no obvious blood or black, tarry stools. No nausea and vomiting, would like diet advanced. Ammonia trending up some, pt with episode of confusion last night after receiving Atarax and Ambien. Lactulose has been increased to TID. T bili trending up today from 5.1 yesterday to 7.5 today. 03/24/2018 patient appears weak, answers simple questions. Labs show current hemoglobin 8.1 on 719.. Bilirubin 7.,, AST 51, ALT 32. Does note loose brown BM without any obvious bleeding and occasional sharp abdominal pain. Ammonia level 73 lactulose currently being given 3 times daily. Other labs include hemochromatosis workup pending, HCV RNA genotype 1A , RNA PCR elevated [id number], PCR log 5.5. PT/INR 1.9, coagulopathy related to hepatitis C liver disease/ cirrhosis. Encouraged alcohol cessation. Will work with patient on an outpatient basis for his hepatitis C treatment/ Plan: Diet, per attending/regular for now Encourage alcohol cessation Xifaxan Questran Spironolactone Lasix Lactulose, monitor for multiple bowel movements Monitor labs with special attention to ammonia level Supportive care Patient seen per myself and Dr. Lopez, note was written on his behalf <Eli Titus - Last Filed: 03/24/18 11:29> - Attending Attestation Patient seen and examined Agree with above Continue current supportive care Monitor labs Recommend low salt diet <Charles Lopez - Last Filed: 03/24/18 17:39>
[2018-03-25 01:04] VITALS: RESP 18
[2018-03-25] MEDS: rifAXIMin 550 MG Tablet PO SCH (08:48)
[2018-03-25 08:51] VITALS: BP 121/66; PULSE 102; TEMP 98.1; O2SAT 98
[2018-03-25 09:01] LABS: Mean Corpuscular HGB Conc 33.1 % (32.0-36.0); Mean Corpuscular Hemoglobin 34.1 pg (27.0-34.0); Mean Corpuscular Volume 102.7 fL (80.0-100.0); Mean Platelet Volume 8.5 fL (7.0-11.0); Platelet Count 63 th/mm3 (150-450); Red Blood Count 2.34 mil/mm3 (4.50-5.90); Red Cell Distribution Width 19.2 % (11.6-17.2); White Blood Count 3.3 th/mm3 (4.0-11.0)
--- NOTE | 2018-03-25 10:12 | P.PNIM ---
Subjective Interval history: in no acute distress. looks and feels better today. has minimal pain to the site of paracentesis. otherwise no other complaints. Physical Exam Vital signs: Vital Signs 03/24/18 12:00 03/24/18 16:00 03/24/18 20:00 Temperature 98.1 F 98.2 F 98.2 F Pulse Rate 88 91 H 109 H Respiratory Rate 18 18 20 Blood Pressure 165/72 H 140/75 114/78 Pulse Oximetry 99 99 100 03/25/18 00:00 03/25/18 04:00 03/25/18 08:00 Temperature 98.2 F 97.6 F 98.1 F Pulse Rate 99 H 85 102 H Respiratory Rate 18 18 18 Blood Pressure 111/62 100/55 L 121/66 Pulse Oximetry 100 100 98 Intake & Output 03/24/18 03/25/18 03/25/18 18:59 06:59 18:59 Intake Total 760 / 760 820 / 820 Output Total 1000 / 1000 600 / 600 Balance -240 / -240 220 / 220 Weight 136.3 kg Intake: IV 200 / 200 100 / 100 Flexbumin 25% Inj 100 ML @ 60 200 / 200 100 / 100 mls/hr IV.SIG Q8HR [facility] Rx#: [id number] Oral 560 / 560 720 / 720 Output: Urine 1000 / 1000 600 / 600 Other: Date of Last Bowel Movement 03/24/18 # Bowel Movements 2 - Constitutional no acute distress - Routine Respiratory Exam Present: CTA bilaterally - Routine Cardiovascular Exam Present: RRR - Routine Abdominal Exam Present: soft, distended - Routine Extremities Exam Comments: no pedal edema. - Routine Neurological Exam Present: alert, oriented X3 Results - Labs CBC & Chem 7: 03/25/18 07:34 03/24/18 09:59 Laboratory Results - last 24 hr 03/24/18 03/24/18 03/24/18 09:15 09:59 09:59 WBC 3.5 L RBC 2.34 L Hgb 8.0 L Hct 24.1 L MCV 102.7 H MCH 34.1 H MCHC 33.2 RDW 19.8 H Plt Count 65 L MPV 8.0 Prelim Diff (Auto) Slide review pending Neut % (Auto) 57.3 Lymph % (Auto) 24.6 [place] % (Auto) 13.2 H Eos % (Auto) 3.5 Baso % (Auto) 1.4 Neut # (Auto) 2.0 Lymph # (Auto) 0.9 L [place] # (Auto) 0.5 Eos # (Auto) 0.1 Baso # (Auto) 0.0 WBC Differential . Diff Scan Auto diff confirmed Differential Comment . Platelet Estimate Low L Platelet Morphology Normal Target Cells 1+ H PT 19.7 H INR 1.9 Sodium 143 Potassium 3.5 Chloride 108 H Carbon Dioxide 28.4 Anion Gap 7 BUN 11 Creatinine 1.09 Estimated GFR 83 L Random Glucose 124 H Calcium 8.6 Phosphorus 2.1 L Magnesium 1.9 Total Bilirubin 7.0 H AST 51 H ALT 32 Alkaline Phosphatase 81 Ammonia Total Protein 6.7 Albumin 3.1 L 03/24/18 03/25/18 09:59 07:34 WBC 3.3 L RBC 2.34 L Hgb 8.0 L Hct 24.0 L MCV 102.7 H MCH 34.1 H MCHC 33.1 RDW 19.2 H Plt Count 63 L MPV 8.5 Prelim Diff (Auto) Neut % (Auto) Lymph % (Auto) [place] % (Auto) Eos % (Auto) Baso % (Auto) Neut # (Auto) Lymph # (Auto) [place] # (Auto) Eos # (Auto) Baso # (Auto) WBC Differential Diff Scan Differential Comment Platelet Estimate Platelet Morphology Target Cells PT INR Sodium Potassium Chloride Carbon Dioxide Anion Gap BUN Creatinine Estimated GFR Random Glucose Calcium Phosphorus Magnesium Total Bilirubin AST ALT Alkaline Phosphatase Ammonia 81 H Total Protein Albumin Microbiology 03/20/18 08:40 Blood - Peripheral Aerobic Blood Culture - Preliminary No growth in 4 days 03/20/18 08:40 Blood - Peripheral Anaerobic Blood Culture - Preliminary No growth in 4 days 03/20/18 08:45 Blood - Peripheral Aerobic Blood Culture - Preliminary No growth in 4 days 03/20/18 08:45 Blood - Peripheral Anaerobic Blood Culture - Preliminary No growth in 4 days - Procedures PARACENTESIS 7-16 6.3 LITERS OFF Date of procedure: 03/22/18 Pre-op diagnosis: Worsening anemia, cirrhosis Post-op diagnosis: other Procedure: PROCEDURE PERFORMED EGD with cautery INDICATION FOR PROCEDURE Worsening anemia, cirrhosis PROCEDURE: The procedure, risks and benefits were discussed with Patient/POA and informed consent was obtained. Anesthesia sedated Patient with Diprivan. Patient was placed in the left lateral decubitus position. EGD: The Pentax videoscope was introduced through the oropharynx and advanced to the second portion of the duodenum under direct visualization. Retroflexion was performed in the stomach. FINDINGS: The esophagus patient had 2 columns of grade 1 esophageal varices with no stigmata of recent bleed The stomach there was an AVM that was bleeding in the mid gastric body this was cauterized and the patient was also showing signs of watermelon stomach in the antrum these 2 were cauterized The duodenum this was normal ESTIMATED BLOOD LOSS: Minimal SPECIMENS REMOVED: None COMPLICATIONS: None IMPRESSION: Esophageal varices grade 1 Gastric AVM Watermelon stomach PLAN: Continue with current supportive care Correct coagulopathy Monitor labs and transfuse as needed EGD in 3 months Clear liquid diet for today PPI Anesthesia: MAC Surgeon: Charles Lopez Condition: stable Disposition: floor Documented By: Charles Lopez MD 03/22/18 7822 Assessment and Plan - Assessment (1) Hepatic encephalopathy Code(s): K72.90 - Hepatic failure, unspecified without coma Status: Acute (2) Liver disease, chronic, with cirrhosis Code(s): K74.60 - Unspecified cirrhosis of liver; K76.9 - Liver disease, unspecified Status: Chronic (3) Ascites of liver Code(s): R18.8 - Other ascites Status: Chronic - Plan Hepatic encephalopathy history of liver cirrhosis- mental status has improved- History of Hep C History of alcohol use sober for years patient with elevated ammonia levels due to nonadherence to lactulose. restarted home lactulose and counseled both patient and on the proper medication adherence. ON RIFAXIMIN Pruritus- likely from cirrhosis History of psoriasis doubt this as cause - plaque lesions are not inflamed and red consider bile acid sequestrants- if persists- STARTED ON CHOLESTYRAMINE Recurrent ascites- per patient and had paracentesis done 02/08 - 7 L out SP PARACENTESIS -16 6.3 LITERS US with ascites- Continue on Lasix and spironolactone. FF electrolytes GI ff Tachycardia- rate better- EKG sinus with PACs Chronic kidney disease stage II. Monitor on diuretics. Avoid nephrotoxins. History of BPH -continue on Flomax 0,4 mg daily Anemia- likely chronic - started PPI - GI ff s/p EGD 03-22 SHOWED VARICES AND WATERMELON STOMACH AND GASTRIC AVMS DVT prophylaxisno anticoagulation secondary to history of liver cirrhosis Case management consulted- needs assistance "we don't have anything" Discharge Planning: dc home today. case management consulted for dc needs. see med list. d/w the patient and GI. f/u; pcp and GI.
--- NOTE | 2018-03-25 10:17 | P.DS ---
Date of admission: 03/17/18 10:36 Primary care physician: No Primary Care Physician Brief History from admission: 62-year-old -[place] male with a history of hepatitis C and cirrhosis who presents with one-week history of worsening shortness of breath on physical exertion and lower extremity swelling along with increased swelling of his abdomen. He was just hospitalized back in February 04 at [facility] in [place] and has seven liters of peritoneal fluid drained for his ascites. His states that he has been more confused over the past week and did not realize he was supposed to take his lactulose on a daily basis as she had thought this was a stool softener. He did not take his lactulose due to having loose stools during the past few days. They had just moved to this area 2 days ago and does not have any health care resources to follow-up with at this time. He denies any fevers or chills. After stopping the lactulose he has not had any further loose stools. He has denied any bloody stools or black stools. He reports some discomfort over the his abdomen due to the increased swelling. DS: Diagnosis - Discharge Diagnosis (1) Hepatic encephalopathy Status: Acute (2) Liver disease, chronic, with cirrhosis Status: Chronic (3) Ascites of liver Status: Chronic DS: Medications - Discharge Medications Prescriptions: cholestyramine (with sugar) 4 gm PO BID 3 Days each pantoprazole 40 mg PO DAILY 30 Days #30 tab rifaximin [Xifaxan] 550 mg PO Q12HR 30 Days tab DS: Summary Hospital Course: patient was admitted. he was evaluated by GI. he underwent paracentesis. he also had EGD which showed VARICES AND WATERMELON STOMACH AND GASTRIC AVMS. his H /H remained stable.his mental status improved. he will have a f/u with GI as outpatient. - Time Spent with Patient Total time spent providing and/or coordinating discharge services: Exam Vital signs: Vital Signs 03/24/18 12:00 03/24/18 16:00 03/24/18 20:00 Temperature 98.1 F 98.2 F 98.2 F Pulse Rate 88 91 H 109 H Respiratory Rate 18 18 20 Blood Pressure 165/72 H 140/75 114/78 Pulse Oximetry 99 99 100 03/25/18 00:00 03/25/18 04:00 07/21/18 08:00 Temperature 98.2 F 97.6 F 98.1 F Pulse Rate 99 H 85 102 H Respiratory Rate 18 18 18 Blood Pressure 111/62 100/55 L 121/66 Pulse Oximetry 100 100 98 Intake & Output 03/24/18 03/25/18 03/25/18 18:59 06:59 18:59 Intake Total 760 / 760 820 / 820 Output Total 1000 / 1000 600 / 600 Balance -240 / -240 220 / 220 Weight 136.3 kg Intake: IV 200 / 200 100 / 100 Flexbumin 25% Inj 100 ML @ 60 200 / 200 100 / 100 mls/hr IV.SIG Q8HR [facility] Rx#: [id number] Oral 560 / 560 720 / 720 Output: Urine 1000 / 1000 600 / 600 Other: Date of Last Bowel Movement 03/24/18 # Bowel Movements 2 Results Procedures completed during hospitalization: PARACENTESIS 7-16 6.3 LITERS OFF Date of procedure: 03/22/18 Pre-op diagnosis: Worsening anemia, cirrhosis Post-op diagnosis: other Procedure: PROCEDURE PERFORMED EGD with cautery INDICATION FOR PROCEDURE Worsening anemia, cirrhosis PROCEDURE: The procedure, risks and benefits were discussed with Patient/POA and informed consent was obtained. Anesthesia sedated Patient with Diprivan. Patient was placed in the left lateral decubitus position. EGD: The Pentax videoscope was introduced through the oropharynx and advanced to the second portion of the duodenum under direct visualization. Retroflexion was performed in the stomach. FINDINGS: The esophagus patient had 2 columns of grade 1 esophageal varices with no stigmata of recent bleed The stomach there was an AVM that was bleeding in the mid gastric body this was cauterized and the patient was also showing signs of watermelon stomach in the antrum these 2 were cauterized The duodenum this was normal ESTIMATED BLOOD LOSS: Minimal SPECIMENS REMOVED: None COMPLICATIONS: None IMPRESSION: Esophageal varices grade 1 Gastric AVM Watermelon stomach PLAN: Continue with current supportive care Correct coagulopathy Monitor labs and transfuse as needed EGD in 3 months Clear liquid diet for today PPI Anesthesia: MAC Surgeon: Charles Lopez Condition: stable Disposition: floor Documented By: Charles Lopez MD 03/22/18 1605 Paracentesis. Labs on day of discharge: Labs from last 24 hours 03/25/18 03/24/18 03/24/18 07:34 09:59 09:59 WBC 3.3 L RBC 2.34 L Hgb 8.0 L Hct 24.0 L MCV 102.7 H MCH 34.1 H MCHC 33.1 RDW 19.2 H Plt Count 63 L MPV 8.5 Prelim Diff (Auto) Neut % (Auto) Lymph % (Auto) [place] % (Auto) Eos % (Auto) Baso % (Auto) Neut # (Auto) Lymph # (Auto) [place] # (Auto) Eos # (Auto) Baso # (Auto) WBC Differential Diff Scan Differential Comment Platelet Estimate Platelet Morphology Target Cells PT INR Sodium 143 Potassium 3.5 Chloride 108 H Carbon Dioxide 28.4 Anion Gap 7 BUN 11 Creatinine 1.09 Estimated GFR 83 L Random Glucose 124 H Calcium 8.6 Phosphorus 2.1 L Magnesium 1.9 Total Bilirubin 7.0 H AST 51 H ALT 32 Alkaline Phosphatase 81 Ammonia 81 H Total Protein 6.7 Albumin 3.1 L 03/24/18 03/24/18 09:59 09:15 WBC 3.5 L RBC 2.34 L Hgb 8.0 L Hct 24.1 L MCV 102.7 H MCH 34.1 H MCHC 33.2 RDW 19.8 H Plt Count 65 L MPV 8.0 Prelim Diff (Auto) Slide review pending Neut % (Auto) 57.3 Lymph % (Auto) 24.6 [place] % (Auto) 13.2 H Eos % (Auto) 3.5 Baso % (Auto) 1.4 Neut # (Auto) 2.0 Lymph # (Auto) 0.9 L [place] # (Auto) 0.5 Eos # (Auto) 0.1 Baso # (Auto) 0.0 WBC Differential . Diff Scan Auto diff confirmed Differential Comment . Platelet Estimate Low L Platelet Morphology Normal Target Cells 1+ H PT 19.7 H INR 1.9 Sodium Potassium Chloride Carbon Dioxide Anion Gap BUN Creatinine Estimated GFR Random Glucose Calcium Phosphorus Magnesium Total Bilirubin AST ALT Alkaline Phosphatase Ammonia Total Protein Albumin Preliminary micro results at discharge 03/20/18 08:40 Aerobic Blood Culture - Preliminary Blood - Peripheral No growth in 4 days Anaerobic Blood Culture - Preliminary No growth in 4 days 03/20/18 08:45 Aerobic Blood Culture - Preliminary Blood - Peripheral No growth in 4 days Anaerobic Blood Culture - Preliminary No growth in 4 days - Impressions ITS Impressions Chest X-Ray 03/17/18 08:11 CONCLUSION: Negative examination. Abdomen Ultrasound 03/18/18 00:00 CONCLUSION: 1. Ascites. Paracentesis Ultrasound 03/20/18 00:00 CONCLUSION: Uncomplicated paracentesis with removal of 6.3 L of fluid. Discharge Plan - Discharge Disposition Patient Disposition: 01 Discharge Home - Discharge Condition Condition: Stable - Discharge Details Anticipated Discharge Date: 03/17/18 - Physicians Team Primary Care Provider: Primary Care Margo Ty Attending Provider: Evelyn Manzano Other Providers: Lori Mayer MD
[2018-03-25] MEDS ORDERED: Nadolol 20 MG Tablet PO SCH (12:00)
--- NOTE | 2018-03-25 13:23 | P.PNGI ---
Subjective Interval history: Pt is resting in bed, no bleeding reported, going home soon. Physical Exam Vital signs: Vital Signs 03/24/18 16:00 03/24/18 20:00 03/25/18 00:00 Temperature 98.2 F 98.2 F 98.2 F Pulse Rate 91 H 109 H 99 H Respiratory Rate 18 20 18 Blood Pressure 140/75 114/78 111/62 Pulse Oximetry 99 100 100 03/25/18 04:00 03/25/18 08:00 Temperature 97.6 F 98.1 F Pulse Rate 85 102 H Respiratory Rate 18 18 Blood Pressure 100/55 L 121/66 Pulse Oximetry 100 98 Intake & Output 03/24/18 03/25/18 03/25/18 18:59 06:59 18:59 Intake Total 760 / 760 820 / 820 Output Total 1000 / 1000 600 / 600 Balance -240 / -240 220 / 220 Weight 136.3 kg Intake: IV 200 / 200 100 / 100 Flexbumin 25% Inj 100 ML @ 60 200 / 200 100 / 100 mls/hr IV.SIG Q8HR [facility] Rx#: [id number] Oral 560 / 560 720 / 720 Output: Urine 1000 / 1000 600 / 600 Other: Date of Last Bowel Movement 03/24/18 # Bowel Movements 2 - Constitutional no acute distress - Routine HEENT Exam Head: Present: normocephalic Eye: Present: PERRL - Routine Neck Exam Present: supple - Routine Respiratory Exam Present: CTA bilaterally - Routine Cardiovascular Exam Present: RRR - Routine Abdominal Exam Present: soft, normoactive bowel sounds - Routine Extremities Exam Absent: clubbing, edema - Routine Skin Exam Present: intact, dry - Routine Neurological Exam Present: alert, oriented X3 Results - Labs CBC & Chem 7: 03/25/18 07:34 03/24/18 09:59 Laboratory Results - last 24 hr 03/25/18 07:34 WBC 3.3 L RBC 2.34 L Hgb 8.0 L Hct 24.0 L MCV 102.7 H MCH 34.1 H MCHC 33.1 RDW 19.2 H Plt Count 63 L MPV 8.5 Microbiology 03/20/18 08:40 Blood - Peripheral Aerobic Blood Culture - Final No growth in 5 days 03/20/18 08:40 Blood - Peripheral Anaerobic Blood Culture - Final No growth in 5 days 03/20/18 08:45 Blood - Peripheral Aerobic Blood Culture - Final No growth in 5 days 03/20/18 08:45 Blood - Peripheral Anaerobic Blood Culture - Final No growth in 5 days - Procedures PARACENTESIS - 6.3 LITERS OFF Date of procedure: 03/22/18 Pre-op diagnosis: Worsening anemia, cirrhosis Post-op diagnosis: other Procedure: PROCEDURE PERFORMED EGD with cautery INDICATION FOR PROCEDURE Worsening anemia, cirrhosis PROCEDURE: The procedure, risks and benefits were discussed with Patient/POA and informed consent was obtained. Anesthesia sedated Patient with Diprivan. Patient was placed in the left lateral decubitus position. EGD: The Pentax videoscope was introduced through the oropharynx and advanced to the second portion of the duodenum under direct visualization. Retroflexion was performed in the stomach. FINDINGS: The esophagus patient had 2 columns of grade 1 esophageal varices with no stigmata of recent bleed The stomach there was an AVM that was bleeding in the mid gastric body this was cauterized and the patient was also showing signs of watermelon stomach in the antrum these 2 were cauterized The duodenum this was normal ESTIMATED BLOOD LOSS: Minimal SPECIMENS REMOVED: None COMPLICATIONS: None IMPRESSION: Esophageal varices grade 1 Gastric AVM Watermelon stomach PLAN: Continue with current supportive care Correct coagulopathy Monitor labs and transfuse as needed EGD in 3 months Clear liquid diet for today PPI Anesthesia: MAC Surgeon: Charles Lopez Condition: stable Disposition: floor Documented By: Charles Lopez MD 03/22/18 1605 Paracentesis. Assessment and Plan - Plan Assessment: - Hepatitis C, treatment naive with recent diagnosis of cirrhosis while hospitalized at [facility] in [place] in February. Pt was discharged home with Lasix, Spironolactone, and Lactulose. Has not been taking Lactulose as prescribed because he thought this was for his bowel movements. Pt reports was advised for possibly Cari, because he is self pay and they offer financial assistance Complaints of abdominal and lower extremity swelling, worse over the past couple days. Had a paracentesis done in February at [facility] with 7 L of fluid removed. S/P paracentesis (03/20) 6300 mL of fluid removed - Hypoalbuminemia, thrombocytopenia, and coagulopathy noted- secondary to cirrhosis (03/20) S/P paracentesis earlier today with 6.3 L of fluid removed. No improvement in LFTs today. (03/21) Pt with drop in H/H today, hgb currently 7.3. Denies any obvious GIB. Last BM was early this morning, diarrhea. Denies nausea, vomiting, abdominal pain. (03/23) Pt S/P EGD yesterday --> Esophageal varices grade 1, Gastric AVM that was actively bleeding in the mid gastric body S/P cauterization, signs of watermelon stomach in the antrum S/P cauterization. H/H stable today. Per pt had BM last night, no obvious blood or black, tarry stools. No nausea and vomiting, would like diet advanced. Ammonia trending up some, pt with episode of confusion last night after receiving Atarax and Ambien. Lactulose has been increased to TID. T bili trending up today from 5.1 yesterday to 7.5 today. 03/24/2018 patient appears weak, answers simple questions. Labs show current hemoglobin 8.1 on 719.. Bilirubin 7.,, AST 51, ALT 32. Does note loose brown BM without any obvious bleeding and occasional sharp abdominal pain. Ammonia level 73 lactulose currently being given 3 times daily. Other labs include hemochromatosis workup pending, HCV RNA genotype 1A , RNA PCR elevated [id number], PCR log 5.5. PT/INR 1.9, coagulopathy related to hepatitis C liver disease/ cirrhosis. Encouraged alcohol cessation. Will work with patient on an outpatient basis for his hepatitis C treatment/ 03/25, pt is doing good, no bleeding reported, going home today, hh stable. Encouraged alcohol cessation Plan: Diet, per attending/regular for now Encourage alcohol cessation Xifaxan Questran Spironolactone Lasix Lactulose, monitor for multiple bowel movements will add nadolol EGD in 3 months F/u with GI in 2 weeks Patient seen per myself and , note was written on his behalf
[2018-03-27 17:35] LABS: Specimen HFE WB Whole Blood
== END 2018-03-25 15:00 | disposition home or self-care (01) ==
LOC: NEDA 06:29 → NEPC 06:29 → NEDH 14:21 → N04 16:33
PROVIDERS: ADMIT Internal Medicine; ATTEND Internal Medicine

== ENCOUNTER 2018-05-14 15:57 | Inpatient (IN) ==
[2018-05-14] MEDS: Sod Chloride 0.9% Inj 1,000 ML IV.CONT SCH (16:27)
--- NOTE | 2018-05-14 16:42 | XR ---
EXAM DATE: 05/14/2018 4:34 PM EDT AGE/SEX: 63 years / Male INDICATIONS: Short of breath CLINICAL DATA: This is the patient's initial encounter. Patient reports that signs and symptoms have been present for 1 day and indicates a pain score of 0/10. MEDICAL/SURGICAL HISTORY: . Cirrhosis. Hepatitis C. Carcinoma, prostatic. Psoriasis. None. COMPARISON: [facility], CHEST 1V SINGLE AP, 03/17/2018. . FINDINGS: A single AP view of the chest demonstrates the lungs to be symmetrically aerated without evidence of mass, infiltrate or effusion. The cardiomediastinal contours are unremarkable. Osseous structures a re intact. CONCLUSION: Negative examination. The right hemidiaphragm is elevated. Electronically signed by: Gomez Lee MD 05/14/2018 4:41 PM EDT
[2018-05-14 16:56] LABS: Baso % (Auto) 0.8 % (0.0-2.0); Eos % (Auto) 1.2 % (0.0-4.0); Hematocrit 28.9 % (39.0-51.0); Lymph # (Auto) 0.6 th/mm3 (1.0-4.8); Lymph % (Auto) 18.2 % (9.0-44.0); Mean Corpuscular HGB Conc 34.5 % (32.0-36.0); Mean Corpuscular Hemoglobin 38.2 pg (27.0-34.0); Mean Corpuscular Volume 110.7 fL (80.0-100.0); Mean Platelet Volume 9.1 fL (7.0-11.0); Mono # (Auto) 0.5 th/mm3 (0.0-0.9); Mono % (Auto) 14.4 % (0.0-8.0); Neut # (Auto) 2.2 th/mm3 (1.8-7.7); Neut % (Auto) 65.4 % (16.0-70.0); Platelet Count 98 th/mm3 (150-450); Red Blood Count 2.61 mil/mm3 (4.50-5.90); Red Cell Distribution Width 16.4 % (11.6-17.2); White Blood Count 3.4 th/mm3 (4.0-11.0)
[2018-05-14 16:59] LABS: INR 2.1 Ratio; Prothrombin Time 21.1 sec (9.8-11.6)
--- NOTE | 2018-05-14 17:04 | ED ---
HPI General Chief Complaint: Altered Mental Status Stated Complaint: stomach Time Seen by Provider: 05/14/18 16:16 Source: patient and family Mode of arrival: ambulatory Limitations: no limitations History of Present Illness HPI narrative: 63-year-old male complaint generalized malaise and weakness and near syncope. Patient has history of hepatitis C and cirrhosis. Patient also has history of elevated ammonia level, ascites. Patient was seen in emergency room 2 days ago for generalized itching of the body. Patient states that he has intermittent problem with itching of the skin for the past year however worse for the past several days. Patient took Benadryl before was seen at the emergency room 2 days ago without much relief. Patient had paracentesis done in March 2018 which had about 6.3 L of fluid removed. Patient has not follow-up with local physician recently. Patient was given prescription of Vistaril for itching. Patient states that he has increasing weakness and lethargy after taking Vistaril. Patient is getting Lasix 40 mg twice daily, tamsulosin 0.4 mg daily, spironolactone 100 mg daily, lactulose 10 g p.o. 3 times a day and Xifaxan 550 mg twice a day. complaint: altered mental status, decreased responsiveness and weakness Onset (ago): day(s) Timing confirmed by: spouse Severity: severe Consistency of symptoms: getting worse Context: liver disease Associated symptoms: malaise, syncope and weakness Related Data Home Medications Medication Instructions Recorded Confirmed furosemide 40 mg PO BID 03/17/18 05/14/18 lactulose 10 g PO TID 03/17/18 05/14/18 spironolactone 100 mg PO DAILY 03/17/18 05/14/18 tamsulosin 0.4 mg PO DAILY 03/17/18 05/14/18 rifaximin [Xifaxan] 550 mg PO BID 05/12/18 05/14/18 Previous Rx's Medication Instructions Recorded hydroxyzine HCl 50 mg PO Q6-8H PRN #20 tab 05/12/18 Allergies Allergy/AdvReac Type Severity Reaction Status Date / Time chlorhexidine Allergy Mild Rash Verified 03/18/18 09:24 Review of Systems ROS: all other systems reviewed are negative [facility] Medical History Medical History Cirrhosis (Acute) Hepatitis C (Acute) Prostate cancer (Acute) Psoriasis (Acute) Surgical History Surgical History H/O prostate biopsy (Acute) Family History Family History Mother Family history of acute myocardial infarction Social History Social History Substance History: No History of Abuse Second Hand Smoke Exposure: No Smoking Status: Former smoker Tobacco Type: Cigarettes How Often Do You Have a Drink Containing Alcohol: Never Recent Travel in [facility] within the Last 8 Weeks: No Recent Out of Country Travel within the Last 8 Weeks: No Immunization History Tetanus Immunization: Unable to Assess Hx Influenza Vaccine This Season: No Exam Narrative Exam Narrative: GENERAL: Well-nourished, well-developed patient. SKIN: Focused skin assessment warm/dry. HEAD: Normocephalic. EYES: No scleral icterus. No injection or drainage. NECK: Supple, trachea midline. No JVD or lymphadenopathy. CARDIOVASCULAR: Regular rate and rhythm without murmurs, gallops, or rubs. RESPIRATORY: Breath sounds equal bilaterally. No accessory muscle use. GASTROINTESTINAL: Abdomen soft, non-tender, moderate distended. MUSCULOSKELETAL: No cyanosis, or edema. BACK: Nontender without obvious deformity. No CVA tenderness. Neurologic exam: Patient with severe lethargy. Patient open eyes on command. Patient moves extremity on command. No obvious focal neurological deficit. Course Initial Documented Vital Signs Temperature 97.5 F L 05/14/18 16:15 Pulse Rate 92 H 05/14/18 16:15 Respiratory Rate 18 05/14/18 16:15 Blood Pressure 130/78 05/14/18 16:15 Pulse Oximetry 98 05/14/18 16:15 Last Documented Vital Signs Temperature 98 F 05/14/18 16:19 Pulse Rate 120 H 05/14/18 18:40 Respiratory Rate 18 05/14/18 18:40 Blood Pressure 118/58 L 05/14/18 18:40 Pulse Oximetry 98 05/14/18 18:40 Medical Decision Making MDM Narrative Medical decision making narrative: 63-year-old male with severe lethargy and weakness and near syncope. History of liver cirrhosis. Medical Screen Exam Complete: Yes Emergency Medical Condition: Yes Differential Diagnosis Differential Diagnosis: Differential diagnosis including electrolyte imbalance, severe dehydration, worsening liver cirrhosis, side effect of medication. Lab Data Lab results reviewed: Yes I reviewed the patient's lab results. Result diagrams: 05/14/18 16:32 05/14/18 16:32 Lab Results 05/14/18 05/14/18 05/14/18 Range/Units 16:32 16:32 16:32 WBC 3.4 L (4.0-11.0) th/mm3 RBC 2.61 L (4.50-5.90) mil/mm3 Hgb 10.0 L (13.0-17.0) gm/dL Hct 28.9 L (39.0-51.0) % MCV 110.7 H (80.0-100.0) fL MCH 38.2 H (27.0-34.0) pg MCHC 34.5 (32.0-36.0) % RDW 16.4 (11.6-17.2) % Plt Count 98 L (150-450) th/mm3 MPV 9.1 (7.0-11.0) fL Prelim Diff (Auto) Slide review pending Neut % (Auto) 65.4 (16.0-70.0) % Lymph % (Auto) 18.2 (9.0-44.0) % [place] % (Auto) 14.4 H (0.0-8.0) % Eos % (Auto) 1.2 (0.0-4.0) % Baso % (Auto) 0.8 (0.0-2.0) % Neut # (Auto) 2.2 (1.8-7.7) th/mm3 Lymph # (Auto) 0.6 L (1.0-4.8) th/mm3 [place] # (Auto) 0.5 (0.0-0.9) th/mm3 Eos # (Auto) 0.0 (0.0-0.4) th/mm3 Baso # (Auto) 0.0 (0.0-0.2) th/mm3 WBC Differential . Diff Scan Auto diff confirmed Differential Comment . Platelet Estimate Low L (Normal) Platelet Morphology Normal (Normal) Rouleaux Present H (None) PT 21.1 H (9.8-11.6) sec INR 2.1 Ratio APTT 40.0 H (24.3-30.1) sec Sodium 133 L (136-145) meq/L Potassium 4.4 (3.5-5.1) meq/L Chloride 98 (98-107) meq/L Carbon Dioxide 23.5 (21.0-32.0) meq/L Anion Gap 12 (5-15) meq/L BUN 19 H (7-18) mg/dL Creatinine 1.44 H (0.60-1.30) mg/dL Estimated GFR 60 L (>89) mL/min Random Glucose 100 (74-106) mg/dL Lactic Acid (0.4-2.0) mmol/L Calcium 9.1 (8.5-10.1) mg/dL Total Bilirubin 12.1 H (0.2-1.0) mg/dL AST 120 H (15-37) U/L ALT 59 (12-78) U/L Alkaline Phosphatase 133 H (45-117) U/L Ammonia (11-32) mcmol/L Total Creatine Kinase (39-308) U/L Troponin I 0.04 (0.02-0.05) ng/mL Total Protein 8.4 H D (6.4-8.2) g/dL Albumin 2.1 L (3.4-5.0) g/dL TSH 1.400 (0.358-3.740) uIU/mL 05/14/18 05/14/18 05/14/18 Range/Units 16:32 16:32 16:32 WBC (4.0-11.0) th/mm3 RBC (4.50-5.90) mil/mm3 Hgb (13.0-17.0) gm/dL Hct (39.0-51.0) % MCV (80.0-100.0) fL MCH (27.0-34.0) pg MCHC (32.0-36.0) % RDW (11.6-17.2) % Plt Count (150-450) th/mm3 MPV (7.0-11.0) fL Prelim Diff (Auto) Neut % (Auto) (16.0-70.0) % Lymph % (Auto) (9.0-44.0) % [place] % (Auto) (0.0-8.0) % Eos % (Auto) (0.0-4.0) % Baso % (Auto) (0.0-2.0) % Neut # (Auto) (1.8-7.7) th/mm3 Lymph # (Auto) (1.0-4.8) th/mm3 [place] # (Auto) (0.0-0.9) th/mm3 Eos # (Auto) (0.0-0.4) th/mm3 Baso # (Auto) (0.0-0.2) th/mm3 WBC Differential Diff Scan Differential Comment Platelet Estimate (Normal) Platelet Morphology (Normal) Rouleaux (None) PT (9.8-11.6) sec INR Ratio APTT (24.3-30.1) sec Sodium (136-145) meq/L Potassium (3.5-5.1) meq/L Chloride (98-107) meq/L Carbon Dioxide (21.0-32.0) meq/L Anion Gap (5-15) meq/L BUN (7-18) mg/dL Creatinine (0.60-1.30) mg/dL Estimated GFR (>89) mL/min Random Glucose (74-106) mg/dL Lactic Acid 3.5 H (0.4-2.0) mmol/L Calcium (8.5-10.1) mg/dL Total Bilirubin (0.2-1.0) mg/dL AST (15-37) U/L ALT (12-78) U/L Alkaline Phosphatase (45-117) U/L Ammonia 42 H (11-32) mcmol/L Total Creatine Kinase 43 (39-308) U/L Troponin I (0.02-0.05) ng/mL Total Protein (6.4-8.2) g/dL Albumin (3.4-5.0) g/dL TSH (0.358-3.740) uIU/mL Imaging Data Attestation: I personally reviewed and interpreted this imaging study as follows : Radiologist's impression: Chest X-Ray 05/14/18 16:21 CONCLUSION: Negative examination. The right hemidiaphragm is elevated. Head CT 05/14/18 16:21 CONCLUSION: 1. Negative CT Head non contrast. . Discharge Plan Discharge Disposition Patient Disposition: 30 Still Patient Discharge Details Diagnosis: Altered mental status, Hepatic encephalopathy, Liver disease, chronic, with cirrhosis Physicians Team ED Provider: Jesus,Hung Primary Care Provider: Laura Snell, Rxs /Orders / Referrals /Forms Prescriptions: No Action furosemide 40 mg Tablet 40 mg PO BID RF: 0 tamsulosin 0.4 mg Capsule,Extended Release 24hr 0.4 mg PO DAILY RF: 0 spironolactone 50 mg Tablet 100 mg PO DAILY RF: 0 lactulose 10 gram/15 mL (15 mL) Solution 10 g PO TID RF: 0 rifaximin [Xifaxan] 550 mg Tablet 550 mg PO BID RF: 0 hydroxyzine HCl 50 mg tablet 50 mg PO Q6-8H PRN (Reason: itching) Qty: 20 RF: 0 Discharge Interventions Interventions: Vital Signs Last Done: 05/14/18 18:40 Status ED Status: Admitted Patient
[2018-05-14 17:07] LABS: Alanine Aminotransferase 59 U/L (12-78)
[2018-05-14 17:09] LABS: Albumin 2.1 g/dL (3.4-5.0); Anion Gap 12 meq/L (5-15); Aspartate Aminotransferase 120 U/L (15-37); Blood Urea Nitrogen 19 mg/dL (7-18); Calcium 9.1 mg/dL (8.5-10.1); Carbon Dioxide 23.5 meq/L (21.0-32.0); Chloride 98 meq/L (98-107); Glomerular Filtration Rate 60 mL/min (>89); Glucose,Random 100 mg/dL (74-106); Sodium 133 meq/L (136-145)
[2018-05-14 17:10] LABS: Potassium 4.4 meq/L (3.5-5.1)
[2018-05-14 17:16] LABS: Alkaline Phosphatase 133 U/L (45-117); Total Protein 8.4 g/dL (6.4-8.2); Troponin I 0.04 ng/mL (0.02-0.05)
[2018-05-14 17:23] LABS: Platelet Morphology Normal (Normal); Rouleaux Present
--- NOTE | 2018-05-14 18:08 | CT ---
EXAM DATE: 05/14/2018 6:04 PM EDT AGE/SEX: 63 years / Male INDICATIONS: Altered mental status. CLINICAL DATA: This is the patient's initial encounter. Patient reports that signs and symptoms have been present for 1 day and indicates a pain score of 0/10. MEDICAL/SURGICAL HISTORY: Cirrhosis. Hepatitis C. Carcinoma, prostatic. None. RADIATION DOSE: 43.55 CTDI (mGy) COMPARISON: No prior exams available for comparison. TECHNIQUE: CT of the head without contrast. Using automated exposure control and adjustment of the mA and/or kV according to patient size, radiation dose was kept as low as reasonably achievable to ob tain optimal diagnostic quality images. DICOM format image data is available electronically for revi ew and comparison. FINDINGS: Cerebrum: The ventricles are normal for age. No evidence of midline shift, mass lesion, hemorrhage or acute infarction. No extraaxial fluid collections are seen. Posterior Fossa: The cerebellum and brainstem are intact. The 4th ventricle is midline. The cerebe llopontine angle is unremarkable. Extracranial: The visualized portion of the orbits is intact. Skull: The calvaria is intact. No evidence of skull fracture. CONCLUSION: 1. Negative CT Head non contrast. . Electronically signed by: Gomez Lee MD 05/14/2018 6:07 PM EDT
[2018-05-14] MEDS ORDERED: Acetaminophen 325 MG Tablet PO PRN (19:28)
[2018-05-14] MEDS ORDERED: Bisacodyl 10 MG Supp RECTAL PRN (19:28)
--- NOTE | 2018-05-14 19:30 | P.HPIM ---
History of Present Illness Primary Care Physician: Laura Snell History of Present Illness: This is a 63-year-old male with a PMH of Hepatitis C, Cirrhosis, A-fib and h/o Prostate CA who was brought to the ER by secondary to lethargy and AMS. Per , pt w/ significant pruritus for few months, has used Benadryl w/ no relief, seen in ER on 05/12/18 and given prescription for Hydroxyzine 50mg PO q6- 8h prn. states pt has had significant lethargy and "shaking" since starting new medication. While in Triage, pt had near syncopal event and was brought straight back. Denies fever, chills, chest pain, SOB or nausea/vomiting /diarrhea. states they moved to the area in March, do not have PCP or GI follow up yet. On arrival, BP 130/78, HR 92, O2 sat 98% on RA, Afebrile. WBC 3.4. Hemoglobin 10.0. Platelets 98, similar comparison to previous labs from . Creatinine 1.44, previously 1.48 on 05/12/2018. Lactic Acid 3.5. Total Bili 12.1. AST 120. ALT 59, ALP 133, similar to previous. Ammonia 42. CT Head with no acute findings. CXR negative. While in ER, pt remains lethargic, but able to answer questions/follow commands. - Diagnosis (1) Encephalopathy (2) Near syncope (3) Cirrhosis (4) Lactic acidosis (5) Pruritus Review of Systems PAST FAMILY HISTORY: Reviewed. No h/o DM or CAD All other systems reviewed negative except as stated in HPI PMFSH - History History Provided By: Patient - Medical History Medical History: Medical History (Last Reviewed 05/14/18 @ 18:30 by Ernst Lee MD) Cirrhosis Hepatitis C Prostate cancer Psoriasis - Surgical History Surgical History: Surgical History (Last Reviewed 05/14/18 @ 18:30 by Ernst Lee MD) H/O prostate biopsy - Family History Family History: Family History (Last Reviewed 05/14/18 @ 18:30 by Ernst Lee MD) Mother Family history of acute myocardial infarction - Tobacco History Second Hand Smoke Exposure: No Smoking Status: Former smoker Tobacco Type: Cigarettes - Alcohol History How Often Do You Have a Drink Containing Alcohol: Never - Substance Use History Substance History: No History of Abuse - Travel History Recent Travel in the [place] Within the Last 8 Weeks: No Recent Travel Out of the Country Within the Last 8 Weeks: No - Immunization History Tetanus Immunization: Unable to Assess Hx Influenza Vaccine This Season: No Medications and Allergies Active Medications: Active Medications Sodium Chloride (Ns Inj) 1,000 mls @ 125 mls/hr IV.CONT .Q8H SHOSHANA Last Admin: 05/14/18 16:27 Dose: 125 mls/hr Allergies Allergy/AdvReac Type Severity Reaction Status Date / Time chlorhexidine Allergy Mild Rash Verified 03/18/18 09:24 Home Medications Medication Instructions Recorded Confirmed Type furosemide 40 mg PO BID 03/17/18 05/14/18 History lactulose 10 g PO TID 03/17/18 05/14/18 History spironolactone 100 mg PO DAILY 03/17/18 05/14/18 History tamsulosin 0.4 mg PO DAILY 03/17/18 05/14/18 History rifaximin [Xifaxan] 550 mg PO BID 05/12/18 05/14/18 History Exam Vital signs: Vital Signs 05/14/18 16:15 05/14/18 16:19 05/14/18 18:40 Temperature 97.5 F L 98 F Pulse Rate 92 H 120 H Respiratory Rate 18 18 Blood Pressure 130/78 118/58 L Pulse Oximetry 98 98 Intake & Output 05/14/18 05/14/18 05/15/18 06:59 18:59 06:59 Weight 122.47 kg Narrative: PE: GENERAL: Middle-aged black male in no acute distress. Mildly lethargic, but answering questions. at bedside. SKIN: Focused skin assessment warm and dry. HEENT: PERRLA, EOMI. No scleral icterus or conjunctival pallor. No lid lag or facial droop. CARDIOVASCULAR: Regular rate and rhythm. No obvious murmurs to auscultation. No chest tenderness to palpation. RESPIRATORY: No obvious rhonchi or wheezing. Clear to auscultation. Breath sounds equal bilaterally. GASTROINTESTINAL: Abdomen soft, non-tender, nondistended. BS normal. MUSCULOSKELETAL: Extremities without clubbing, cyanosis, or edema. No obvious deformities. NEUROLOGICAL: Awake, alert, oriented to person, place, but slow to answer due to lethargy. No focal neurologic deficits. Moving both upper and lower extremities spontaneously. PSYCHIATRIC: Appropriate mood and affect. Insight and judgment normal. Results - Labs CBC & Chem 7: 05/14/18 16:32 05/14/18 16:32 Labs: Short CBC 05/14/18 Range/Units 16:32 WBC 3.4 L (4.0-11.0) th/mm3 Hgb 10.0 L (13.0-17.0) gm/dL Hct 28.9 L (39.0-51.0) % Plt Count 98 L (150-450) th/mm3 BMP 05/14/18 16:32 Sodium 133 L Potassium 4.4 Chloride 98 Carbon Dioxide 23.5 BUN 19 H Creatinine 1.44 H Calcium 9.1 Cardiac Enzymes 05/14/18 05/14/18 Range/Units 16:32 16:32 Total Creatine Kinase 43 (39-308) U/L Troponin I 0.04 (0.02-0.05) ng/mL Liver Function 05/14/18 Range/Units 16:32 Total Bilirubin 12.1 H (0.2-1.0) mg/dL AST 120 H (15-37) U/L ALT 59 (12-78) U/L Alkaline Phosphatase 133 H (45-117) U/L Albumin 2.1 L (3.4-5.0) g/dL - Imaging Impressions Chest X-Ray 05/14/18 16:21 CONCLUSION: Negative examination. The right hemidiaphragm is elevated. Head CT 05/14/18 16:21 CONCLUSION: 1. Negative CT Head non contrast. . Caprini VTE Risk Assessment Caprini VTE Risk Assessment: No/Low Risk (score <= 1) Caprini Risk Assessment Model: Point Value = 1 Point Value = 2 Point Value = 3 Point Value = 5 Age 41-60 Minor surgery BMI > 25 kg/m2 Swollen legs Varicose veins or History of unexplained or recurrent spontaneous Oral contraceptives or hormone replacement Sepsis (< 1 month) Serious lung disease, including pneumonia (< 1 month) Abnormal pulmonary function Acute myocardial infarction Congestive heart failure (< 1 month) History of inflammatory bowel disease Medical patient at bed rest Age 61-74 Arthroscopic surgery Major open surgery (> 45 min) Laparoscopic surgery (> 45 min) Malignancy Confined to bed (> 72 hours) Immobilizing plaster cast Central venous access Age >= 75 History of VTE Family history of VTE Factor V Leiden Prothrombin [id number] Lupus anticoagulant Anticardiolipin antibodies Elevated serum homocysteine Heparin-induced thrombocytopenia Other congenital or acquired thrombophilia Stroke (< 1 month) Elective arthroplasty Hip, pelvis, or leg fracture Acute spinal cord injury (< 1 month) Prophylaxis Regimen: Total Risk Factor Score Risk Level Prophylaxis Regimen 0-1 Low Early ambulation 2 Moderate Order ONE of the following: *Sequential Compression Device (SCD) *Heparin 5000 units SQ BID 3-4 Higher Order ONE of the following medications: *Heparin 5000 units SQ TID *Enoxaparin/Lovenox 40 mg SQ daily (WT < 150 kg, CrCl > 30 mL/min) *Enoxaparin/Lovenox 30 mg SQ daily (WT < 150 kg, CrCl > 10-29 mL/min) *Enoxaparin/Lovenox 30 mg SQ BID (WT < 150 kg, CrCl > 30 mL/min) AND/OR *Sequential Compression Device (SCD) 5 or more Highest Order ONE of the following medications: *Heparin 5000 units SQ TID (Preferred with Epidurals) *Enoxaparin/Lovenox 40 mg SQ daily (WT < 150 kg, CrCl > 30 mL/min) *Enoxaparin/Lovenox 30 mg SQ daily (WT < 150 kg, CrCl > 10-29 mL/min) *Enoxaparin/Lovenox 30 mg SQ BID (WT < 150 kg, CrCl > 30 mL/min) AND *Sequential Compression Device (SCD) Assessment and Plan - Assessment (1) Encephalopathy Code(s): G93.40 - Encephalopathy, unspecified Status: Acute (2) Near syncope Code(s): R55 - Syncope and collapse Status: Acute (3) Cirrhosis Code(s): K74.60 - Unspecified cirrhosis of liver Status: Acute (4) Lactic acidosis Code(s): E87.2 - Acidosis Status: Acute (5) Pruritus Code(s): L29.9 - Pruritus, unspecified Status: Acute - Plan A/P: 1. Encephalopathy: Likely multifactorial-h/o Cirrhosis, Hepatic Encephalopathy , and Drug Effects from Hydroxyzine. CT Head w/ no acute findings, images reviewed. Check U/a to eval for possible UTI. Neuro Checks. Hold Hydroxyzine. 2. Cirrhosis: h/o Cirrhosis from Hep C, recently moved to area, no local GI follow up. Ammonia 42, complaint w/ Lactulose, will continue home medications. Consult GI for further evaluation/recommendations. 3. Pruritus: secondary to cholestasis from underlying liver failure, no improvement w/ Benadryl, s/p Hydroxyzine w/ significant lethargy, will trial Cholestyramine, possibly Rifampin if no improvement. Will Consult GI for further eval. 4. Lactic Acidosis: Lactic Acid 3.5, no indication for sepsis, IVF for hydration, repeat Lactic Acid 5. DVT Prophylaxis: SCD/Teds 6. Social work for d/c planning as needed 7. Case discussed w/ ER physician at length, labs/records/imaging reviewed by me.
[2018-05-14] MEDS: Furosemide 40 MG Tablet PO SCH (21:44)
[2018-05-14] MEDS: rifAXIMin 550 MG Tablet PO SCH (21:44)
[2018-05-14] MEDS: Senna/Docusate Sodium 8.6/50 MG Tablet PO SCH (21:47)
[2018-05-15] MEDS ORDERED: Sodium Chlor 0.9% Inj 500 ML IV.SIG SCH (00:12)
[2018-05-15 04:02] LABS: Baso # (Auto) 0.1 th/mm3 (0.0-0.2); Baso % (Auto) 2.2 % (0.0-2.0); Eos % (Auto) 0.4 % (0.0-4.0); Hemoglobin 8.2 gm/dL (13.0-17.0); Lymph # (Auto) 0.4 th/mm3 (1.0-4.8); Lymph % (Auto) 8.8 % (9.0-44.0); Mean Corpuscular HGB Conc 32.9 % (32.0-36.0); Mean Corpuscular Hemoglobin 37.3 pg (27.0-34.0); Mean Corpuscular Volume 113.1 fL (80.0-100.0); Mean Platelet Volume 8.4 fL (7.0-11.0); Mono # (Auto) 0.7 th/mm3 (0.0-0.9); Mono % (Auto) 15.6 % (0.0-8.0); Neut # (Auto) 3.4 th/mm3 (1.8-7.7); Platelet Count 74 th/mm3 (150-450); Red Blood Count 2.21 mil/mm3 (4.50-5.90); Red Cell Distribution Width 16.5 % (11.6-17.2); White Blood Count 4.6 th/mm3 (4.0-11.0)
[2018-05-15 04:07] LABS: INR 2.3 Ratio; Prothrombin Time 23.2 sec (9.8-11.6)
[2018-05-15 04:20] LABS: Alanine Aminotransferase 50 U/L (12-78); Albumin 1.9 g/dL (3.4-5.0); Alkaline Phosphatase 114 U/L (45-117); Anion Gap 9 meq/L (5-15); Aspartate Aminotransferase 91 U/L (15-37); Blood Urea Nitrogen 20 mg/dL (7-18); Carbon Dioxide 24.9 meq/L (21.0-32.0); Chloride 100 meq/L (98-107); Glomerular Filtration Rate 58 mL/min (>89); Glucose,Random 126 mg/dL (74-106); Sodium 134 meq/L (136-145); Total Protein 7.3 g/dL (6.4-8.2)
[2018-05-15 05:50] LABS: Acanthocytes Occ; Platelet Morphology Normal (Normal)
[2018-05-15] MEDS: Sod Chloride 0.9% Inj 1,000 ML IV.CONT SCH ×3 (07:24→16:55)
[2018-05-15] MEDS: Furosemide 40 MG Tablet PO SCH ×2 (09:17→18:24)
[2018-05-15] MEDS: rifAXIMin 550 MG Tablet PO SCH ×2 (09:17→20:17)
[2018-05-15] MEDS: Senna/Docusate Sodium 8.6/50 MG Tablet PO SCH ×2 (09:18→20:17)
[2018-05-15] MEDS: Spironolactone 50 MG Tablet PO SCH (09:18)
--- NOTE | 2018-05-15 11:08 | P.CONGI ---
History of Present Illness Consult date: 05/15/18 Consult reason: History of hepatitis C, cirrhosis, pruritus Chief complaint: Syncope, Liver cirrhosis. Hepatic History of Present Illness: This is a 63-year-old overweight male who came in a hospital on 05/14/2018 with uncontrolled symptoms of pruritus worsened over the past 3 months. Patient has a history of psoriasis but states that he is itching appears to be from the inside out and all over. Patient notes that he has a history of cirrhosis which was established in February 2018 as well as hepatitis C. Patient denies any treatment for hepatitis in the past. Patient also notes some right upper quadrant and mid abdominal tenderness with abdomen being distended moderate amount soft and soft bowel sounds. Patient denies any diarrhea but states his stools are soft and that he currently takes lactulose on a daily basis his other symptoms include shortness of breath, no obvious nausea or vomiting or dyspepsia. According to the record patient did have a syncopal episode in the emergency room but recovered quickly. Ultrasound of the gallbladder showed a moderate amount of ascites this admission and according to patient's he had a paracentesis back in February 2018 which 7 L was removed and a other paracentesis in March 2018 here at [facility] which 6 L was removed. Patient also has a history of prostate cancer. Last EGD that was performed showed gastric AVMs and varices. Current labs show hemoglobin at 8.2 which is a decrease from his admission hemoglobin of 10. Patient also has INR of 2.3, bilirubin 11.5, AST 91, ALT 50, patient does have a history of alcohol usage but denies any alcohol in the past 8 months. Current pain involves the right upper quadrant and mid abdominal 7 out of 10. Patient is showing some signs of lethargy but does attempt to answer some simple questions and other information is being gathered from the . <Eli Titus - Last Filed: 05/15/18 10:47> Review of Systems All other systems reviewed negative except as stated in HPI <Eli Titus - Last Filed: 05/15/18 10:47> PMFSH - History History Provided By: Patient - Medical History Medical History: Medical History (Last Reviewed 05/15/18 @ 08:50 by Yesy Santos) Cirrhosis Hepatitis C Prostate cancer Psoriasis - Surgical History Surgical History: Surgical History (Last Reviewed 05/15/18 @ 08:50 by Yesy Santos) H/O prostate biopsy - Family History Family History: Family History (Last Reviewed 05/14/18 @ 18:30 by Ernst Lee MD) Mother Family history of acute myocardial infarction - Tobacco History Second Hand Smoke Exposure: No Tobacco Use In Past 30 Days: No Smoking Status: Never smoker Tobacco Type: Cigarettes - Alcohol History How Often Do You Have a Drink Containing Alcohol: Never - Substance Use History Substance History: No History of Abuse - Travel History Recent Travel in the [place] Within the Last 8 Weeks: No Recent Travel Out of the Country Within the Last 8 Weeks: No - Immunization History Tetanus Immunization: Unable to Assess Hx Influenza Vaccine This Season: No <Eli Titus - Last Filed: 05/15/18 10:47> - Medical History Medical History: Medical History (Last Reviewed 05/15/18 @ 08:50 by Yesy Santos) Cirrhosis Hepatitis C Prostate cancer Psoriasis - Surgical History Surgical History: Surgical History (Last Reviewed 05/15/18 @ 08:50 by Yesy Santos) H/O prostate biopsy - Family History Family History: Family History (Last Reviewed 05/14/18 @ 18:30 by Ernst Lee MD) Mother Family history of acute myocardial infarction <Lori Mayer - Last Filed: 05/15/18 11:59> Medications and Allergies Active Medications: Active Medications Acetaminophen (Tylenol) 650 mg PO Q4H PRN PRN Reason: Temp > 100.4 Al Hydroxide/Mg Hydroxide (Milk Of Archie Liq) 30 ml PO Q12H PRN PRN Reason: Mild Constipation Bisacodyl (Dulcolax Supp) 10 mg RECTAL DAILY PRN PRN Reason: SEVERE CONSITIPATION Cholestyramine Resin (Questran 4 Gm Pkt) 4 gm PO BID@0600,1600 [facility] Last Admin: 05/15/18 07:22 Dose: 4 gm Furosemide (Lasix) 40 mg PO BID@0900,1800 [facility] Last Admin: 05/15/18 09:17 Dose: 40 mg Hydroxyzine HCl (Atarax) 50 mg PO Q6H PRN PRN Reason: itching Sodium Chloride (Ns Inj) 1,000 mls @ 125 mls/hr IV.CONT .Q8H [facility] Last Admin: 05/15/18 09:09 Dose: Not Given Lactulose (Lactulose Liq) 15 ml PO Q8HR [facility] Last Admin: 05/15/18 07:22 Dose: 15 ml Ondansetron HCl (Zofran Inj) 4 mg IV.PUSH Q6H PRN PRN Reason: NAUSEA OR VOMITING Propranolol HCl (Inderal) 10 mg PO TID [facility] Rifaximin (Xifaxan) 550 mg PO BID [facility] Last Admin: 05/15/18 09:17 Dose: 550 mg Senna/Docusate Sodium (Cally-Colace) 1 tab PO BID [facility] Last Admin: 05/15/18 09:18 Dose: Not Given Sennosides (Senokot) 17.2 mg PO Q12H PRN PRN Reason: Moderate Constipation Spironolactone (Aldactone) 100 mg PO DAILY [facility] Last Admin: 05/15/18 09:18 Dose: 100 mg Tamsulosin HCl (Flomax) 0.4 mg PO DAILY [facility] Last Admin: 05/15/18 09:17 Dose: 0.4 mg <Eli Titus M - Last Filed: 05/15/18 10:47> Active Medications: Active Medications Acetaminophen (Tylenol) 650 mg PO Q4H PRN PRN Reason: Temp > 100.4 Al Hydroxide/Mg Hydroxide (Milk Of Magnesia Liq) 30 ml PO Q12H PRN PRN Reason: Mild Constipation Bisacodyl (Dulcolax Supp) 10 mg RECTAL DAILY PRN PRN Reason: SEVERE CONSITIPATION Cholestyramine Resin (Questran 4 Gm Pkt) 4 gm PO BID@0600,1600 [facility] Last Admin: 05/15/18 07:22 Dose: 4 gm Furosemide (Lasix) 40 mg PO BID@0900,1800 [facility] Last Admin: 05/15/18 09:17 Dose: 40 mg Hydroxyzine HCl (Atarax) 50 mg PO Q6H PRN PRN Reason: itching Sodium Chloride (Ns Inj) 1,000 mls @ 125 mls/hr IV.CONT .Q8H [facility] Last Admin: 05/15/18 09:09 Dose: Not Given Lactulose (Lactulose Liq) 15 ml PO Q8HR [facility] Last Admin: 05/15/18 07:22 Dose: 15 ml Ondansetron HCl (Zofran Inj) 4 mg IV.PUSH Q6H PRN PRN Reason: NAUSEA OR VOMITING Pantoprazole Sodium (Protonix Inj) 40 mg IV.PUSH Q12H [facility] Propranolol HCl (Inderal) 10 mg PO TID [facility] Rifaximin (Xifaxan) 550 mg PO BID [facility] Last Admin: 05/15/18 09:17 Dose: 550 mg Senna/Docusate Sodium (Cally-Colace) 1 tab PO BID [facility] Last Admin: 05/15/18 09:18 Dose: Not Given Sennosides (Senokot) 17.2 mg PO Q12H PRN PRN Reason: Moderate Constipation Spironolactone (Aldactone) 100 mg PO DAILY [facility] Last Admin: 05/15/18 09:18 Dose: 100 mg Tamsulosin HCl (Flomax) 0.4 mg PO DAILY [facility] Last Admin: 05/15/18 09:17 Dose: 0.4 mg <Lori Mayer A - Last Filed: 05/15/18 11:59> Allergies Allergy/AdvReac Type Severity Reaction Status Date / Time chlorhexidine Allergy Mild Rash Verified 03/18/18 09:24 Home Medications Medication Instructions Recorded Confirmed Type furosemide 40 mg PO BID 03/17/18 05/14/18 History lactulose 10 g PO TID 03/17/18 05/14/18 History spironolactone 100 mg PO DAILY 03/17/18 05/14/18 History tamsulosin 0.4 mg PO DAILY 03/17/18 05/14/18 History rifaximin [Xifaxan] 550 mg PO BID 05/12/18 05/14/18 History Exam Vital signs: Vital Signs 05/14/18 16:15 05/14/18 16:19 05/14/18 18:40 Temperature 97.5 F L 98 F Pulse Rate 92 H 120 H Respiratory Rate 18 18 Blood Pressure 130/78 118/58 L Pulse Oximetry 98 98 05/14/18 20:00 05/15/18 00:00 05/15/18 04:00 Temperature 97.2 F L 99.2 F 98.5 F Pulse Rate 102 H 91 H 93 H Respiratory Rate 18 17 18 Blood Pressure 118/57 L 116/78 130/59 L Pulse Oximetry 98 99 98 05/15/18 06:36 05/15/18 07:53 05/15/18 08:00 Temperature 98.4 F Pulse Rate 82 91 H Respiratory Rate 16 Blood Pressure 140/72 Pulse Oximetry 96 100 Intake & Output 05/14/18 05/15/18 05/15/18 18:59 06:59 18:59 Intake Total 500 / 500 1000 / 1000 Balance 500 / 500 1000 / 1000 Weight 122.47 kg Intake: IV 500 / 500 1000 / 1000 NS Inj 1,000 ML @ 125 mls/hr IV 1000 / 1000 .CONT .Q8H [facility] Rx#:[id number] NS Inj 500 ML @ Wide Open IV. 500 / 500 SIG BOLUS SHOSHANA Rx#:[id number] Other: # Voids 2 0 Date of Last Bowel Movement 05/13/18 - Constitutional moderate distress, morbidly obese - Routine HEENT Exam Head: Present: normocephalic ENT: Present: mucous membranes dry - Routine Respiratory Exam Present: accessory muscle use (Diminished breath sounds bilateral), diminished air movement - Routine Cardiovascular Exam Present: S1, S2 - Routine Abdominal Exam Present: soft (Round, obese, distended moderate amount with soft bowel sounds) - Routine Skin Exam Present: lesions (Psoriasis noted on chest) - Routine Neurological Exam Present: altered mental status (Mild lethargy) <Eli Titus - Last Filed: 05/15/18 10:47> Vital signs: Vital Signs 05/14/18 16:15 05/14/18 16:19 05/14/18 18:40 Temperature 97.5 F L 98 F Pulse Rate 92 H 120 H Respiratory Rate 18 18 Blood Pressure 130/78 118/58 L Pulse Oximetry 98 98 05/14/18 20:00 05/15/18 00:00 05/15/18 04:00 Temperature 97.2 F L 99.2 F 98.5 F Pulse Rate 102 H 91 H 93 H Respiratory Rate 18 17 18 Blood Pressure 118/57 L 116/78 130/59 L Pulse Oximetry 98 99 98 05/15/18 06:36 05/15/18 07:53 05/15/18 08:00 Temperature 98.4 F Pulse Rate 82 91 H Respiratory Rate 16 Blood Pressure 140/72 Pulse Oximetry 96 100 05/15/18 11:55 Temperature 98.5 F Pulse Rate 95 H Respiratory Rate 18 Blood Pressure 135/76 Pulse Oximetry 100 Intake & Output 05/14/18 05/15/1805/15/18 18:59 06:59 18:59 Intake Total 500 / 500 1000 / 1000 Balance 500 / 500 1000 / 1000 Weight 122.47 kg Intake: IV 500 / 500 1000 / 1000 NS Inj 1,000 ML @ 125 mls/hr IV 1000 / 1000 .CONT .Q8H [facility] Rx#:[id number] NS Inj 500 ML @ Wide Open IV. 500 / 500 SIG BOLUS SHOSHANA Rx#:[id number] Other: # Voids 2 0 Date of Last Bowel Movement 05/13/18 <Lori Mayer A - Last Filed: 05/15/18 11:59> Results - Labs CBC & Chem 7: 05/15/18 03:21 05/15/18 03:21 Labs: Laboratory Results - last 24 hr 05/14/18 05/14/18 05/14/18 16:32 16:32 16:32 WBC 3.4 L RBC 2.61 L Hgb 10.0 L Hct 28.9 L MCV 110.7 H MCH 38.2 H MCHC 34.5 RDW 16.4 Plt Count 98 L MPV 9.1 Prelim Diff (Auto) Slide review pending Neut % (Auto) 65.4 Lymph % (Auto) 18.2 [place] % (Auto) 14.4 H Eos % (Auto) 1.2 Baso % (Auto) 0.8 Neut # (Auto) 2.2 Lymph # (Auto) 0.6 L [place] # (Auto) 0.5 Eos # (Auto) 0.0 Baso # (Auto) 0.0 WBC Differential . Diff Scan Auto diff confirmed Differential Comment . Platelet Estimate Low L Platelet Morphology Normal Acanthocytes (Spur) Rouleaux Present H PT 21.1 H INR 2.1 APTT 40.0 H Sodium 133 L Potassium 4.4 Chloride 98 Carbon Dioxide 23.5 Anion Gap 12 BUN 19 H Creatinine 1.44 H Estimated GFR 60 L Random Glucose 100 Lactic Acid Calcium 9.1 Total Bilirubin 12.1 H AST 120 H ALT 59 Alkaline Phosphatase 133 H Ammonia Total Creatine Kinase Troponin I 0.04 Total Protein 8.4 H D Albumin 2.1 L TSH 1.400 05/14/18 05/14/18 05/14/18 16:32 16:32 16:32 WBC RBC Hgb Hct MCV MCH MCHC RDW Plt Count MPV Prelim Diff (Auto) Neut % (Auto) Lymph % (Auto) [place] % (Auto) Eos % (Auto) Baso % (Auto) Neut # (Auto) Lymph # (Auto) [place] # (Auto) Eos # (Auto) Baso # (Auto) WBC Differential Diff Scan Differential Comment Platelet Estimate Platelet Morphology Acanthocytes (Spur) Rouleaux PT INR APTT Sodium Potassium Chloride Carbon Dioxide Anion Gap BUN Creatinine Estimated GFR Random Glucose Lactic Acid 3.5 H Calcium Total Bilirubin AST ALT Alkaline Phosphatase Ammonia 42 H Total Creatine Kinase 43 Troponin I Total Protein Albumin TSH 05/14/18 05/15/18 05/15/18 23:15 02:35 03:21 WBC 4.6 RBC 2.21 L Hgb 8.2 L Hct 25.0 L MCV 113.1 H MCH 37.3 H MCHC 32.9 RDW 16.5 Plt Count 74 L MPV 8.4 Prelim Diff (Auto) Slide review pending Neut % (Auto) 73.0 H Lymph % (Auto) 8.8 L [place] % (Auto) 15.6 H Eos % (Auto) 0.4 Baso % (Auto) 2.2 H Neut # (Auto) 3.4 Lymph # (Auto) 0.4 L [place] # (Auto) 0.7 Eos # (Auto) 0.0 Baso # (Auto) 0.1 WBC Differential . Diff Scan Auto diff confirmed Differential Comment . Platelet Estimate Low L Platelet Morphology Normal Acanthocytes (Spur) Occ H Rouleaux PT INR APTT Sodium Potassium Chloride Carbon Dioxide Anion Gap BUN Creatinine Estimated GFR Random Glucose Lactic Acid 4.3 H* 3.0 H Calcium Total Bilirubin AST ALT Alkaline Phosphatase Ammonia Total Creatine Kinase Troponin I Total Protein Albumin TSH 05/15/18 05/15/18 03:21 03:21 WBC RBC Hgb Hct MCV MCH MCHC RDW Plt Count MPV Prelim Diff (Auto) Neut % (Auto) Lymph % (Auto) [place] % (Auto) Eos % (Auto) Baso % (Auto) Neut # (Auto) Lymph # (Auto) [place] # (Auto) Eos # (Auto) Baso # (Auto) WBC Differential Diff Scan Differential Comment Platelet Estimate Platelet Morphology Acanthocytes (Spur) Rouleaux PT 23.2 H INR 2.3 APTT Sodium 134 L Potassium 4.0 Chloride 100 Carbon Dioxide 24.9 Anion Gap 9 BUN 20 H Creatinine 1.48 H Estimated GFR 58 L Random Glucose 126 H Lactic Acid Calcium 8.0 L D Total Bilirubin 11.5 H AST 91 H ALT 50 Alkaline Phosphatase 114 Ammonia Total Creatine Kinase Troponin I Total Protein 7.3 D Albumin 1.9 L TSH - Imaging Impressions Chest X-Ray 05/14/18 16:21 CONCLUSION: Negative examination. The right hemidiaphragm is elevated. Head CT 05/14/18 16:21 CONCLUSION: 1. Negative CT Head non contrast. . <Eli Titus - Last Filed: 05/15/18 10:47> - Labs CBC & Chem 7: 05/15/18 03:21 05/15/18 03:21 Labs: Laboratory Results - last 24 hr 05/14/18 05/14/18 05/14/18 16:32 16:32 16:32 WBC 3.4 L RBC 2.61 L Hgb 10.0 L Hct 28.9 L MCV 110.7 H MCH 38.2 H MCHC 34.5 RDW 16.4 Plt Count 98 L MPV 9.1 Prelim Diff (Auto) Slide review pending Neut % (Auto) 65.4 Lymph % (Auto) 18.2 [place] % (Auto) 14.4 H Eos % (Auto) 1.2 Baso % (Auto) 0.8 Neut # (Auto) 2.2 Lymph # (Auto) 0.6 L [place] # (Auto) 0.5 Eos # (Auto) 0.0 Baso # (Auto) 0.0 WBC Differential . Diff Scan Auto diff confirmed Differential Comment . Platelet Estimate Low L Platelet Morphology Normal Acanthocytes (Spur) Rouleaux Present H PT 21.1 H INR 2.1 APTT 40.0 H Sodium 133 L Potassium 4.4 Chloride 98 Carbon Dioxide 23.5 Anion Gap 12 BUN 19 H Creatinine 1.44 H Estimated GFR 60 L Random Glucose 100 Lactic Acid Calcium 9.1 Total Bilirubin 12.1 H AST 120 H ALT 59 Alkaline Phosphatase 133 H Ammonia Total Creatine Kinase Troponin I 0.04 Total Protein 8.4 H D Albumin 2.1 L TSH 1.400 05/14/18 05/14/18 05/14/18 16:32 16:32 16:32 WBC RBC Hgb Hct MCV MCH MCHC RDW Plt Count MPV Prelim Diff (Auto) Neut % (Auto) Lymph % (Auto) [place] % (Auto) Eos % (Auto) Baso % (Auto) Neut # (Auto) Lymph # (Auto) [place] # (Auto) Eos # (Auto) Baso # (Auto) WBC Differential Diff Scan Differential Comment Platelet Estimate Platelet Morphology Acanthocytes (Spur) Rouleaux PT INR APTT Sodium Potassium Chloride Carbon Dioxide Anion Gap BUN Creatinine Estimated GFR Random Glucose Lactic Acid 3.5 H Calcium Total Bilirubin AST ALT Alkaline Phosphatase Ammonia 42 H Total Creatine Kinase 43 Troponin I Total Protein Albumin TSH 05/14/18 05/15/18 05/15/18 23:15 02:35 03:21 WBC 4.6 RBC 2.21 L Hgb 8.2 L Hct 25.0 L MCV 113.1 H MCH 37.3 H MCHC 32.9 RDW 16.5 Plt Count 74 L MPV 8.4 Prelim Diff (Auto) Slide review pending Neut % (Auto) 73.0 H Lymph % (Auto) 8.8 L [place] % (Auto) 15.6 H Eos % (Auto) 0.4 Baso % (Auto) 2.2 H Neut # (Auto) 3.4 Lymph # (Auto) 0.4 L [place] # (Auto) 0.7 Eos # (Auto) 0.0 Baso # (Auto) 0.1 WBC Differential . Diff Scan Auto diff confirmed Differential Comment . Platelet Estimate Low L Platelet Morphology Normal Acanthocytes (Spur) Occ H Rouleaux PT INR APTT Sodium Potassium Chloride Carbon Dioxide Anion Gap BUN Creatinine Estimated GFR Random Glucose Lactic Acid 4.3 H* 3.0 H Calcium Total Bilirubin AST ALT Alkaline Phosphatase Ammonia Total Creatine Kinase Troponin I Total Protein Albumin TSH 05/15/18 05/15/18 05/15/18 03:21 03:21 10:55 WBC RBC Hgb Hct MCV MCH MCHC RDW Plt Count MPV Prelim Diff (Auto) Neut % (Auto) Lymph % (Auto) [place] % (Auto) Eos % (Auto) Baso % (Auto) Neut # (Auto) Lymph # (Auto) [place] # (Auto) Eos # (Auto) Baso # (Auto) WBC Differential Diff Scan Differential Comment Platelet Estimate Platelet Morphology Acanthocytes (Spur) Rouleaux PT 23.2 H INR 2.3 APTT Sodium 134 L Potassium 4.0 Chloride 100 Carbon Dioxide 24.9 Anion Gap 9 BUN 20 H Creatinine 1.48 H Estimated GFR 58 L Random Glucose 126 H Lactic Acid Calcium 8.0 L D Total Bilirubin 11.5 H AST 91 H ALT 50 Alkaline Phosphatase 114 Ammonia 47 H Total Creatine Kinase Troponin I Total Protein 7.3 D Albumin 1.9 L TSH - Imaging Impressions Chest X-Ray 05/14/18 16:21 CONCLUSION: Negative examination. The right hemidiaphragm is elevated. Head CT 05/14/18 16:21 CONCLUSION: 1. Negative CT Head non contrast. . Abdomen Ultrasound 05/15/18 00:00 CONCLUSION: 1. No evidence of post paracentesis complication. 2. Persistent moderate ascites. 3. Abnormal hepatic echotexture characteristic of chronic hepatocellular disease. 4. Mild splenomegaly 5. Contracted gallbladder with thickened wall <Lori Mayer - Last Filed: 05/15/18 11:59> Assessment and Plan (1) Hyperammonemia Status: Acute Code(s): E72.20 - Disorder of urea cycle metabolism, unspecified (2) Hepatic encephalopathy Status: Acute Code(s): K72.90 - Hepatic failure, unspecified without coma (3) Liver disease, chronic, with cirrhosis Status: Chronic Code(s): K74.60 - Unspecified cirrhosis of liver; K76.9 - Liver disease, unspecified (4) Ascites of liver Status: Chronic Code(s): R18.8 - Other ascites (5) Altered mental status Status: Acute Code(s): R41.82 - Altered mental status, unspecified (6) Cirrhosis Status: Acute Code(s): K74.60 - Unspecified cirrhosis of liver - Plan overweight male who came in a hospital on 05/14/2018 with uncontrolled symptoms of pruritus worsened over the past 3 months. Patient has a history of psoriasis but states that he is itching appears to be from the inside out and all over. The symptoms could be related to his hepatic failure and cirrhosis as well as hyperbilirubinemia history of cirrhosis which was established in February 2018 as well as hepatitis C. Patient denies any treatment for hepatitis in the past. right upper quadrant and mid abdominal tenderness with abdomen being distended moderate amount soft and soft bowel sounds. Patient denies any diarrhea but states his stools are soft and that he currently takes lactulose on a daily basis his other symptoms include shortness of breath, no obvious nausea or vomiting or dyspepsia syncopal episode in the emergency room but recovered quickly. Ultrasound of the gallbladder showed a moderate amount of ascites this admission and according to patient's he had a paracentesis back in February 2018 which 7 L was removed and a other paracentesis in March 2018 here at [facility] which 6 L was removed. Patient also has a history of prostate cancer. Last EGD that was performed in March 2018 showed gastric AVMs and varices. Recommendation was to repeat EGD in 3 months. Current labs show hemoglobin at 8.2 which is a decrease from his admission hemoglobin of 10. Ammonia level 42, patient also has INR of 2.3, bilirubin 11.5 , AST 91, ALT 50, patient does have a history of alcohol usage but denies any alcohol in the past 8 months. Pain scale 7 out of 10. , Right upper quadrant and mid abdominal pain lethargy but does attempt to answer some simple questions and other information is being gathered from the . The symptoms also could be related to his hepatic encephalopathy, cirrhosis and hyperammonemia. Plan Diet, per attending Correct coagulopathy. Consider dosing vitamin K, patient needs to be less than 1.5 to repeat EGD and evaluate his anemia as well as history of varices, AVMs Consider abdominal ultrasound to evaluate for paracentesis, gallbladder ultrasound showed moderate amount of ascites. Will ask IR to reevaluate Monitor labs hepatic function ammonia level, PT/INR in a.m. Consider EGD, timing TBA. Consider FFP, and continue evaluate of INR. Possibly after paracentesis, and patient is stable PPI Continue Lasix, and around, Xifaxan, Aldactone, and lactulose Further recommendations to follow Patient seen per myself and Dr. Mayer, note was written on his behalf <Eli Titus - Last Filed: 05/15/18 10:47> (1) Hyperammonemia Status: Acute Code(s): E72.20 - Disorder of urea cycle metabolism, unspecified (2) Hepatic encephalopathy Status: Acute Code(s): K72.90 - Hepatic failure, unspecified without coma (3) Liver disease, chronic, with cirrhosis Status: Chronic Code(s): K74.60 - Unspecified cirrhosis of liver; K76.9 - Liver disease, unspecified (4) Ascites of liver Status: Chronic Code(s): R18.8 - Other ascites (5) Altered mental status Status: Acute Code(s): R41.82 - Altered mental status, unspecified (6) Cirrhosis Status: Acute Code(s): K74.60 - Unspecified cirrhosis of liver - Attending Attestation Agree with above, will follow up with you and help in Cirrhosis management , Paracentesis and maximize treatment, Thank you for the consult. <Lori Mayer A - Last Filed: 05/15/18 11:59> <Eli Titus M - Last Filed: 05/15/18 10:47> (5) Altered mental status Qualifiers: Altered mental status type: transient alteration of awareness Qualified Code( s): R40.4 - Transient alteration of awareness <Lori Mayer A - Last Filed: 05/15/18 11:59> (5) Altered mental status Qualifiers: Altered mental status type: transient alteration of awareness Qualified Code( s): R40.4 - Transient alteration of awareness
--- NOTE | 2018-05-15 11:19 | US ---
EXAM DATE: 05/15/2018 10:29 AM EDT AGE/SEX: 63 years / Male INDICATIONS: Abdominal pain in area of prior paracentesis. CLINICAL DATA: This is the patient's subsequent encounter. Patient reports that signs and symptoms h ave been present for 3 days and indicates a pain score of 5/10. MEDICAL/SURGICAL HISTORY: . Cirrhosis. Hepatitis C. Carcinoma, prostatic. Psoriasis. . Prosta te biopsy. Paracentesis. COMPARISON: [facility] – [place], US ABDOMEN - GALLBLADDER, 05/12/2018. . MEASUREMENTS: Liver:__ 11.3 cm. Common Bile Duct:___ 4mm. Right Kidney:___12.1 x 4.8 x 5.2 cm. Left Kidney:___12.0 x 5.5 x 7.7 cm. Spleen:___12.9 cm. FINDINGS: Liver: The liver appears small and demonstrates an abnormal heterogeneous echotexture. There is no e vidence of biliary duct dilatation. Portal Vein: Hepatopedal flow seen in portal vein. Common Duct: No intraluminal mass or stone visualized. Gallbladder: Gallbladder is contracted and demonstrates significant wall thickening. Pancreas: Not well visualized. Right Kidney: Normal echotexture and cortical thickness. No mass or hydronephrosis. Left Kidney: Normal echotexture and cortical thickness. No mass or hydronephrosis. Ascites: Moderate amount of ascites remains evident. There are no focal abnormalities in the region of the patient's recent paracentesis. Pleural Effusion: None Spleen: No focal lesion. Aorta: Not visualized. IVC: Poorly visualized Other: None. CONCLUSION: 1. No evidence of post paracentesis complication. 2. Persistent moderate ascites. 3. Abnormal hepatic echotexture characteristic of chronic hepatocellular disease. 4. Mild splenomegaly 5. Contracted gallbladder with thickened wall Electronically signed by: Amos Slade MD 05/15/2018 11:18 AM EDT
--- NOTE | 2018-05-15 13:02 | MG ---
cc: Juan Stallings MD, PhD TEST NUMBER: [id number] TECHNIQUE: This is a 17-channel EEG. DESCRIPTION: The background rhythm reveals generalized slowing in the theta range of 6 Hz, amplitude 20-30 microvolts. No lateralizing features were identified. No epileptiform features are seen. Photic stimulation results in a poor driving response. INTERPRETATION: Mildly abnormal study consistent with a mild to moderate encephalopathy. Juan Stallings MD, PhD ALLA/ld , 12:51 PM , 12:56 PM
[2018-05-15 13:05] LABS: Alanine Aminotransferase 51 U/L (12-78); Albumin 1.9 g/dL (3.4-5.0); Anion Gap 10 meq/L (5-15); Aspartate Aminotransferase 93 U/L (15-37); Blood Urea Nitrogen 20 mg/dL (7-18); Calcium 8.5 mg/dL (8.5-10.1); Carbon Dioxide 24.3 meq/L (21.0-32.0); Chloride 100 meq/L (98-107); Glomerular Filtration Rate 61 mL/min (>89); Glucose,Random 143 mg/dL (74-106); Potassium 4.2 meq/L (3.5-5.1); Sodium 134 meq/L (136-145)
[2018-05-15 13:08] LABS: Alkaline Phosphatase 107 U/L (45-117); Total Protein 7.4 g/dL (6.4-8.2)
--- NOTE | 2018-05-15 13:12 | P.PN ---
Subjective Interval history: follow up for near syncope, hepatic encephalopathy: Patient awakes to voice, oriented 3. Tries to answer questions about his past medical history. at bedside supplementing information. They have been seeing gastroenterology only PCP. Patient complains of fatigue, no chest pain, no shortness of breath. Abdomen is distended. Had paracentesis in March of this year. He has not been eating or drinking much. Denies any chest pain, no shortness of breath, no palpitations. Afebrile. Telemetry reviewed, noted when paroxysmal A. fib at times heart rate up to 150s with occasional PVCs. Currently sinus rhythm heart rate 90s. Physical Exam Vital signs: Vital Signs 05/14/18 16:15 05/14/18 16:19 05/14/18 18:40 Temperature 97.5 F L 98 F Pulse Rate 92 H 120 H Respiratory Rate 18 18 Blood Pressure 130/78 118/58 L Pulse Oximetry 98 98 05/14/18 20:00 05/15/18 00:00 05/15/18 04:00 Temperature 97.2 F L 99.2 F 98.5 F Pulse Rate 102 H 91 H 93 H Respiratory Rate 18 17 18 Blood Pressure 118/57 L 116/78 130/59 L Pulse Oximetry 98 99 98 05/15/18 06:36 05/15/18 07:53 05/15/18 08:00 Temperature 98.4 F Pulse Rate 82 91 H Respiratory Rate 16 Blood Pressure 140/72 Pulse Oximetry 96 100 05/15/18 11:55 Temperature 98.5 F Pulse Rate 95 H Respiratory Rate 18 Blood Pressure 135/76 Pulse Oximetry 100 Intake & Output 05/14/18 05/15/18 05/15/18 18:59 06:59 18:59 Intake Total 500 / 500 1000 / 1000 Balance 500 / 500 1000 / 1000 Weight 122.47 kg Intake: IV 500 / 500 1000 / 1000 NS Inj 1,000 ML @ 125 mls/hr IV 1000 / 1000 .CONT .Q8H [facility] Rx#:[id number] NS Inj 500 ML @ Wide Open IV. 500 / 500 SIG [facility] Rx#:[id number] Other: # Voids 2 0 Date of Last Bowel Movement 05/13/18 Narrative: GENERAL: 63-year-old chronically ill-appearing male. SKIN: Warm and dry. HEAD: Atraumatic. Normocephalic. EYES: Pupils equal and round. Scleral icterus. No injection or drainage. ENT: No nasal bleeding or discharge. Mucous membranes pink and moist. NECK: Trachea midline. No JVD. CARDIOVASCULAR: S1-S2, occasionally irregular. RESPIRATORY: No accessory muscle use. Clear to auscultation but diminished at bases. Breath sounds equal bilaterally. GASTROINTESTINAL: Abdomen distended with ascites, diffusely tender. Unable to detect organomegaly secondary to body habitus. MUSCULOSKELETAL: Extremities without clubbing, cyanosis, trace ankle edema. No obvious deformities. NEUROLOGICAL: Awakes to voice, oriented 3. No focal deficits. Slow to respond. PSYCHIATRIC: Appropriate mood and affect Results - Labs CBC & Chem 7: 05/15/18 03:21 05/15/18 12:30 Laboratory Results - last 24 hr 05/14/18 05/14/18 05/14/18 16:32 16:32 16:32 WBC 3.4 L RBC 2.61 L Hgb 10.0 L Hct 28.9 L MCV 110.7 H MCH 38.2 H MCHC 34.5 RDW 16.4 Plt Count 98 L MPV 9.1 Prelim Diff (Auto) Slide review pending Neut % (Auto) 65.4 Lymph % (Auto) 18.2 [place] % (Auto) 14.4 H Eos % (Auto) 1.2 Baso % (Auto) 0.8 Neut # (Auto) 2.2 Lymph # (Auto) 0.6 L [place] # (Auto) 0.5 Eos # (Auto) 0.0 Baso # (Auto) 0.0 WBC Differential . Diff Scan Auto diff confirmed Differential Comment . Platelet Estimate Low L Platelet Morphology Normal Acanthocytes (Spur) Rouleaux Present H PT 21.1 H INR 2.1 APTT 40.0 H Sodium 133 L Potassium 4.4 Chloride 98 Carbon Dioxide 23.5 Anion Gap 12 BUN 19 H Creatinine 1.44 H Estimated GFR 60 L Random Glucose 100 Lactic Acid Calcium 9.1 Total Bilirubin 12.1 H AST 120 H ALT 59 Alkaline Phosphatase 133 H Ammonia Total Creatine Kinase Troponin I 0.04 Total Protein 8.4 H D Albumin 2.1 L TSH 1.400 05/14/18 05/14/18 05/14/18 16:32 16:32 16:32 WBC RBC Hgb Hct MCV MCH MCHC RDW Plt Count MPV Prelim Diff (Auto) Neut % (Auto) Lymph % (Auto) [place] % (Auto) Eos % (Auto) Baso % (Auto) Neut # (Auto) Lymph # (Auto) [place] # (Auto) Eos # (Auto) Baso # (Auto) WBC Differential Diff Scan Differential Comment Platelet Estimate Platelet Morphology Acanthocytes (Spur) Rouleaux PT INR APTT Sodium Potassium Chloride Carbon Dioxide Anion Gap BUN Creatinine Estimated GFR Random Glucose Lactic Acid 3.5 H Calcium Total Bilirubin AST ALT Alkaline Phosphatase Ammonia 42 H Total Creatine Kinase 43 Troponin I Total Protein Albumin TSH 05/14/18 05/15/18 05/15/18 23:15 02:35 03:21 WBC 4.6 RBC 2.21 L Hgb 8.2 L Hct 25.0 L MCV 113.1 H MCH 37.3 H MCHC 32.9 RDW 16.5 Plt Count 74 L MPV 8.4 Prelim Diff (Auto) Slide review pending Neut % (Auto) 73.0 H Lymph % (Auto) 8.8 L [place] % (Auto) 15.6 H Eos % (Auto) 0.4 Baso % (Auto) 2.2 H Neut # (Auto) 3.4 Lymph # (Auto) 0.4 L [place] # (Auto) 0.7 Eos # (Auto) 0.0 Baso # (Auto) 0.1 WBC Differential . Diff Scan Auto diff confirmed Differential Comment . Platelet Estimate Low L Platelet Morphology Normal Acanthocytes (Spur) Occ H Rouleaux PT INR APTT Sodium Potassium Chloride Carbon Dioxide Anion Gap BUN Creatinine Estimated GFR Random Glucose Lactic Acid 4.3 H* 3.0 H Calcium Total Bilirubin AST ALT Alkaline Phosphatase Ammonia Total Creatine Kinase Troponin I Total Protein Albumin TSH 05/15/18 05/15/18 05/15/18 03:21 03:21 10:55 WBC RBC Hgb Hct MCV MCH MCHC RDW Plt Count MPV Prelim Diff (Auto) Neut % (Auto) Lymph % (Auto) [place] % (Auto) Eos % (Auto) Baso % (Auto) Neut # (Auto) Lymph # (Auto) [place] # (Auto) Eos # (Auto) Baso # (Auto) WBC Differential Diff Scan Differential Comment Platelet Estimate Platelet Morphology Acanthocytes (Spur) Rouleaux PT 23.2 H INR 2.3 APTT Sodium 134 L Potassium 4.0 Chloride 100 Carbon Dioxide 24.9 Anion Gap 9 BUN 20 H Creatinine 1.48 H Estimated GFR 58 L Random Glucose 126 H Lactic Acid Calcium 8.0 L D Total Bilirubin 11.5 H AST 91 H ALT 50 Alkaline Phosphatase 114 Ammonia 47 H Total Creatine Kinase Troponin I Total Protein 7.3 D Albumin 1.9 L TSH - Imaging Impressions Chest X-Ray 05/14/18 16:21 CONCLUSION: Negative examination. The right hemidiaphragm is elevated. Head CT 05/14/18 16:21 CONCLUSION: 1. Negative CT Head non contrast. . Abdomen Ultrasound 05/15/18 00:00 CONCLUSION: 1. No evidence of post paracentesis complication. 2. Persistent moderate ascites. 3. Abnormal hepatic echotexture characteristic of chronic hepatocellular disease. 4. Mild splenomegaly 5. Contracted gallbladder with thickened wall Assessment and Plan - Assessment (1) Hepatic encephalopathy Code(s): K72.90 - Hepatic failure, unspecified without coma Status: Acute (2) Encephalopathy Code(s): G93.40 - Encephalopathy, unspecified Status: Acute (3) Near syncope Code(s): R55 - Syncope and collapse Status: Acute (4) Cirrhosis Code(s): K74.60 - Unspecified cirrhosis of liver Status: Chronic (5) Lactic acidosis Code(s): E87.2 - Acidosis Status: Acute (6) Pruritus Code(s): L29.9 - Pruritus, unspecified Status: Acute (7) Atrial fibrillation Code(s): I48.91 - Unspecified atrial fibrillation Status: Chronic (8) Coagulopathy Code(s): D68.9 - Coagulation defect, unspecified Status: Acute (9) Acute kidney injury Code(s): N17.9 - Acute kidney failure, unspecified Status: Acute (10) Anemia Code(s): D64.9 - Anemia, unspecified Status: Acute - Plan Assessment/plan 63-year-old male with a PMH of Hepatitis C, Cirrhosis, A-fib and h/o Prostate CA who was brought to the ER by secondary to lethargy and AMS. Per , pt w/ significant pruritus for few months, has used Benadryl w/ no relief, seen in ER on 05/12/18 and given prescription for Hydroxyzine 50mg PO q6-8h prn. states pt has had significant lethargy and "shaking" since starting new medication. While in Triage, pt had near syncopal event and was brought straight back. Denied fever, chills, chest pain, SOB or nausea/vomiting/ diarrhea. Metabolic encephalopathy Hepatic encephalopathy Possibly multifactorial, history of cirrhosis, elevated ammonia, possible dehydration, drug effects from hydroxyzine. CT of the head without any acute findings Patient much more awake today, answering questions. Following commands UA to rule out for possible UTI --pending -Continue with neuro check -EEG Continue with aggressive fluid, normal saline 125 Consult gastroenterology, discussed with CONTRACT PROJECT MANAGER. May need paracentesis. Acute kidney injury possibly secondary to dehydration Continue with aggressive fluid resuscitation Avoid nephrotoxic agents Follow BMP Lactic acidosis Continue with IV fluids Follow UA Lactic acid in the morning Cirrhosis, history of cirrhosis from hep C. Has not established himself with a local post anesthesia care unit nurse Ammonia 42, has been compliant with lactulose, has one small bowel movement a day. Ascites Recent EGD with findings of ascites, did not require banding -Continue lactulose Follow ammonia level in the morning -GI following -Abdominal ultrasound to evaluate for ascites -Continue Lasix, Inderal, Aldactone Paroxysmal A. fib with occasional bursts of RVR, occasional PVC -Continue with propanolol 10 mg 3 times daily No anticoagulation due to coagulopathy -Had recent echocardiogram, EF 55-60%. -We will check BMP and mag Coagulopathy, secondary to liver disease INR 2.3 -We will give vitamin K 5 mg subcu, patient may need paracentesis Pruritus, secondary to cholestasis from underlying liver failure. -Hold hydroxyzine right now Continue with rifaximin and cholestyramine -GI following Anemia,chronic vs acute. Had recent EGD with findings of AVMs, watermelon stomach and varices. -Follow HH -Monitor for bleeding Repeat labs in the morning Discussed with patient, , RN, case management, Eli LATHAM for GI (4) Cirrhosis Qualifiers: Hepatic cirrhosis type: alcoholic cirrhosis Ascites presence: with ascites Qualified Code(s): K70.31 - Alcoholic cirrhosis of liver with ascites (7) Atrial fibrillation Qualifiers: Atrial fibrillation type: paroxysmal Qualified Code(s): I48.0 - Paroxysmal atrial fibrillation (10) Anemia Qualifiers: Anemia type: unspecified type Qualified Code(s): D64.9 - Anemia, unspecified
[2018-05-15] MEDS ORDERED: Phytonadione Inj 10 MG/ML Vial SQ ONE (14:00)
[2018-05-15] MEDS: Pantoprazole Inj 40 MG Vial IV.PUSH SCH ×2 (14:38→20:16)
[2018-05-15] MEDS: Propranolol 10 MG Tablet PO SCH ×2 (14:38→18:24)
--- NOTE | 2018-05-15 16:09 | ECG ---
Date Performed: 05/14/2018 Time Performed: 16:18:53 PTAGE: 63 years EKG: Ectopic atrial or JUNCTIONAL TACHYCARDIA MARKED LEFT AXIS DEVIATION When compared to previo us tracing, ID interval is shorter. ABNORMAL ECG PREVIOUS TRACING : 03/18/2018 10.38 DOCTOR: Sunil Dexter Interpretating Date/Time 05/15/2018 16:08:01
[2018-05-16] MEDS: Sod Chloride 0.9% Inj 1,000 ML IV.CONT SCH ×3 (00:28→15:34)
[2018-05-16 07:04] LABS: Bacteria,Urine Moderate /hpf; Bilirubin,Urine Moderate (Negative); Clarity,Urine Hazy (Clear); Color,Urine Amber (Yellw/Straw); Glucose,Urine (UA) Negative (Negative); Hyaline Casts,Urine 10 /lpf (0-3); Leukocyte Esterase,Urine Negative (Negative); Mucus,Urine Few /lpf (Occasional); Nitrite,Urine Positive (Negative); Specific Gravity,Urine 1.019 (1.002-1.035); Squamous Epithelial Cell,Urine 1 /hpf (0-5); Urobilinogen,Urine 4 or Greater mg/dL (Less than 2)
[2018-05-16 07:07] LABS: Ictotest,Urine Positive (Negative)
[2018-05-16 07:11] LABS: Hematocrit 24.7 % (39.0-51.0); Hemoglobin 8.4 gm/dL (13.0-17.0); Mean Corpuscular HGB Conc 34.2 % (32.0-36.0); Mean Corpuscular Hemoglobin 38.2 pg (27.0-34.0); Mean Corpuscular Volume 111.6 fL (80.0-100.0); Mean Platelet Volume 8.7 fL (7.0-11.0); Platelet Count 69 th/mm3 (150-450); Red Blood Count 2.21 mil/mm3 (4.50-5.90); Red Cell Distribution Width 16.1 % (11.6-17.2); White Blood Count 6.5 th/mm3 (4.0-11.0)
[2018-05-16 07:19] LABS: INR 2.2 Ratio; Prothrombin Time 22.5 sec (9.8-11.6)
[2018-05-16 08:13] LABS: Alanine Aminotransferase 45 U/L (12-78); Albumin 1.6 g/dL (3.4-5.0); Alkaline Phosphatase 92 U/L (45-117); Anion Gap 8 meq/L (5-15); Aspartate Aminotransferase 94 U/L (15-37); Blood Urea Nitrogen 19 mg/dL (7-18); Carbon Dioxide 24.3 meq/L (21.0-32.0); Chloride 103 meq/L (98-107); Glomerular Filtration Rate 68 mL/min (>89); Glucose,Random 90 mg/dL (74-106); Potassium 5.1 meq/L (3.5-5.1); Sodium 135 meq/L (136-145); Total Protein 6.9 g/dL (6.4-8.2)
[2018-05-16] MEDS: Propranolol 10 MG Tablet PO SCH ×3 (09:39→17:35)
[2018-05-16] MEDS: Spironolactone 50 MG Tablet PO SCH (09:39)
[2018-05-16] MEDS: rifAXIMin 550 MG Tablet PO SCH ×2 (09:39→20:49)
[2018-05-16] MEDS: Senna/Docusate Sodium 8.6/50 MG Tablet PO SCH ×2 (09:39→20:50)
[2018-05-16] MEDS: Pantoprazole Inj 40 MG Vial IV.PUSH SCH ×2 (09:39→20:50)
[2018-05-16] MEDS: Furosemide 40 MG Tablet PO SCH ×2 (09:42→17:35)
[2018-05-16] MEDS: Loratadine 10 MG Tablet PO SCH (15:34)
--- NOTE | 2018-05-16 17:50 | P.PN ---
Subjective Interval history: Patient is seen lying quietly in bed. is at bedside. Patient denies any pain. He does continue to complain of itching. No nausea or vomiting. No diarrhea. He is tolerating his meals well. Normal urination. Physical Exam Vital signs: Vital Signs 05/15/18 20:00 05/15/18 23:41 05/16/18 04:00 Temperature 98.2 F 98.3 F 98.3 F Pulse Rate 53 L 62 59 L Respiratory Rate 16 16 16 Blood Pressure 136/69 129/69 115/67 Pulse Oximetry 100 100 100 05/16/18 08:00 05/16/18 09:00 05/16/18 11:51 Temperature 98.3 F 98.4 F Pulse Rate 69 68 69 Respiratory Rate 18 18 Blood Pressure 132/82 133/65 Pulse Oximetry 100 100 05/16/18 16:00 Temperature 98.3 F Pulse Rate 61 Respiratory Rate 18 Blood Pressure 119/59 L Pulse Oximetry 99 Intake & Output 05/15/18 05/16/18 05/16/18 18:59 06:59 18:59 Intake Total 1999 / 999 Output Total 180 / 180 Balance 1820 / 1820 999 Weight 84.822 kg Intake: IV 1999 NS Inj 1,000 ML @ 125 mls/hr IV 1999 .CONT .Q8H [facility] Rx#:[id number] Output: Urine 180 / 180 Other: # Voids 1 2 1 Date of Last Bowel Movement 05/15/18 # Bowel Movements 1 1 Weight On Admission 84.822 kg Narrative: GENERAL: 63-year-old chronically ill-appearing male. SKIN: Warm and dry. HEAD: Atraumatic. Normocephalic. EYES: Pupils equal and round. Scleral icterus. No injection or drainage. CARDIOVASCULAR: S1-S2, occasionally irregular. RESPIRATORY: No accessory muscle use. Clear to auscultation but diminished at bases. Breath sounds equal bilaterally. GASTROINTESTINAL: Abdomen distended with ascites, diffusely tender. MUSCULOSKELETAL: Extremities without clubbing, cyanosis, trace ankle edema. No obvious deformities. NEUROLOGICAL: Awakes to voice, oriented 3. No focal deficits. Slow to respond. PSYCHIATRIC: Appropriate mood and affect Results - Labs CBC & Chem 7: 05/16/18 06:50 05/16/18 06:50 Laboratory Results - last 24 hr 05/16/18 05/16/18 05/16/18 05:13 06:50 06:50 WBC 6.5 RBC 2.21 L Hgb 8.4 L Hct 24.7 L MCV 111.6 H MCH 38.2 H MCHC 34.2 RDW 16.1 Plt Count 69 L MPV 8.7 PT INR Sodium Potassium Chloride Carbon Dioxide Anion Gap BUN Creatinine Estimated GFR Random Glucose Lactic Acid 1.4 Calcium Total Bilirubin AST ALT Alkaline Phosphatase Total Protein Albumin Vitamin B12 Urine Color [place] Urine Clarity Hazy H Urine pH 5.0 Ur Specific [place] 1.019 Urine Protein Negative Urine Glucose (UA) Negative Urine Ketones Negative Urine Occult Blood Negative Urine Nitrate Positive H Urine Bilirubin Moderate H Urine Ictotest Positive H Urine Urobilinogen 4 or greater Ur Leukocyte Esterase Negative Urine RBC 1 Urine WBC 4 Ur Squamous Epith Cells 1 Urine Bacteria Moderate H Hyaline Casts 10 Urine Mucus Few H Micro UA Comment Culture indicated Ur Microscopic Review Not Reportable Urine Culture Comments Culture indicated 05/16/18 05/16/18 05/16/18 06:50 06:50 06:50 WBC RBC Hgb Hct MCV MCH MCHC RDW Plt Count MPV PT 22.5 H INR 2.2 Sodium 135 L Potassium 5.1 D Chloride 103 Carbon Dioxide 24.3 Anion Gap 8 BUN 19 H Creatinine 1.29 Estimated GFR 68 L Random Glucose 90 Lactic Acid Calcium 8.0 L Total Bilirubin 10.8 H AST 94 H ALT 45 Alkaline Phosphatase 92 Total Protein 6.9 Albumin 1.6 L Vitamin B12 1165 H Urine Color Urine Clarity Urine pH Ur Specific [place] Urine Protein Urine Glucose (UA) Urine Ketones Urine Occult Blood Urine Nitrate Urine Bilirubin Urine Ictotest Urine Urobilinogen Ur Leukocyte Esterase Urine RBC Urine WBC Ur Squamous Epith Cells Urine Bacteria Hyaline Casts Urine Mucus Micro UA Comment Ur Microscopic Review Urine Culture Comments Assessment and Plan - Assessment (1) Hepatic encephalopathy Code(s): K72.90 - Hepatic failure, unspecified without coma Status: Acute (2) Encephalopathy Code(s): G93.40 - Encephalopathy, unspecified Status: Acute (3) Near syncope Code(s): R55 - Syncope and collapse Status: Acute (4) Cirrhosis Code(s): K74.60 - Unspecified cirrhosis of liver Status: Chronic (5) Lactic acidosis Code(s): E87.2 - Acidosis Status: Acute (6) Pruritus Code(s): L29.9 - Pruritus, unspecified Status: Acute (7) Atrial fibrillation Code(s): I48.91 - Unspecified atrial fibrillation Status: Chronic (8) Coagulopathy Code(s): D68.9 - Coagulation defect, unspecified Status: Acute (9) Acute kidney injury Code(s): N17.9 - Acute kidney failure, unspecified Status: Acute (10) Anemia Code(s): D64.9 - Anemia, unspecified Status: Acute - Plan Assessment/plan 63-year-old male with a PMH of Hepatitis C, Cirrhosis, A-fib and h/o Prostate CA who was brought to the ER by secondary to lethargy and AMS. Per , pt w/ significant pruritus for few months, has used Benadryl w/ no relief, seen in ER on 05/12/18 and given prescription for Hydroxyzine 50mg PO q6-8h prn. states pt has had significant lethargy and "shaking" since starting new medication. While in Triage, pt had near syncopal event and was brought straight back. Denied fever, chills, chest pain, SOB or nausea/vomiting/ diarrhea. Metabolic encephalopathy Hepatic encephalopathy Possibly multifactorial, history of cirrhosis, elevated ammonia, possible dehydration, drug effects from hydroxyzine. CT of the head without any acute findings UA to rule out for possible UTI --pending -Continue with neuro check -EEG Continue with aggressive fluid, normal saline 125 Consult gastroenterology, discussed with FLOWER MAKER. May need paracentesis. Acute kidney injury possibly secondary to dehydration Continue with aggressive fluid resuscitation Avoid nephrotoxic agents Follow BMP Lactic acidosis Continue with IV fluids Follow UA Lactic acid in the morning Cirrhosis, history of cirrhosis from hep C. Has not established himself with a local management trainee marketing Ammonia 42, has been compliant with lactulose, has one small bowel movement a day. Ascites Recent EGD with findings of varices, did not require banding -Continue lactulose Follow ammonia level in the morning -GI following -Abdominal ultrasound to evaluate for ascites -Continue Lasix, Inderal, Aldactone Paroxysmal A. fib with occasional bursts of RVR, occasional PVC -Continue with propanolol 10 mg 3 times daily No anticoagulation due to coagulopathy -Had recent echocardiogram, EF 55-60%. -We will check BMP and mag Coagulopathy, secondary to liver disease INR 2.3 -We will give vitamin K 5 mg subcu, patient may need paracentesis. INR not improved with vitamin K; may need FFP if GI proceeds with procedures. Pruritus, secondary to cholestasis from underlying liver failure. -Hold hydroxyzine right now Continue with rifaximin and cholestyramine -GI following Anemia,chronic vs acute. Had recent EGD with findings of AVMs, watermelon stomach and varices. -Follow HH -Monitor for bleeding Repeat labs in the morning Discussed with patient, , RN, case management, and Dr. Bobo Discharge planning: Patient will need clearance from GI prior to discharge. Home health versus rehab? (4) Cirrhosis Qualifiers: Hepatic cirrhosis type: alcoholic cirrhosis Ascites presence: with ascites Qualified Code(s): K70.31 - Alcoholic cirrhosis of liver with ascites (7) Atrial fibrillation Qualifiers: Atrial fibrillation type: paroxysmal Qualified Code(s): I48.0 - Paroxysmal atrial fibrillation (10) Anemia Qualifiers: Anemia type: unspecified type Qualified Code(s): D64.9 - Anemia, unspecified
[2018-05-17] MEDS: Sod Chloride 0.9% Inj 1,000 ML IV.CONT SCH ×2 (01:13→08:30)
[2018-05-17 08:18] LABS: Baso % (Auto) 0.9 % (0.0-2.0); Eos # (Auto) 0.2 th/mm3 (0.0-0.4); Hematocrit 26.1 % (39.0-51.0); Hemoglobin 8.8 gm/dL (13.0-17.0); Lymph # (Auto) 0.8 th/mm3 (1.0-4.8); Lymph % (Auto) 13.8 % (9.0-44.0); Mean Corpuscular HGB Conc 33.6 % (32.0-36.0); Mean Corpuscular Hemoglobin 38.1 pg (27.0-34.0); Mean Corpuscular Volume 113.4 fL (80.0-100.0); Mean Platelet Volume 8.9 fL (7.0-11.0); Mono # (Auto) 1.1 th/mm3 (0.0-0.9); Mono % (Auto) 20.9 % (0.0-8.0); Neut # (Auto) 3.3 th/mm3 (1.8-7.7); Neut % (Auto) 60.4 % (16.0-70.0); Platelet Count 75 th/mm3 (150-450); Red Blood Count 2.31 mil/mm3 (4.50-5.90); Red Cell Distribution Width 16.2 % (11.6-17.2); White Blood Count 5.5 th/mm3 (4.0-11.0)
[2018-05-17 08:23] LABS: INR 1.9 Ratio; Prothrombin Time 19.5 sec (9.8-11.6)
[2018-05-17] MEDS: Loratadine 10 MG Tablet PO SCH (08:25)
[2018-05-17] MEDS: rifAXIMin 550 MG Tablet PO SCH ×2 (08:25→20:42)
[2018-05-17] MEDS: Senna/Docusate Sodium 8.6/50 MG Tablet PO SCH ×2 (08:25→20:42)
[2018-05-17] MEDS: Pantoprazole Inj 40 MG Vial IV.PUSH SCH ×2 (08:26→20:42)
[2018-05-17] MEDS: Furosemide 20 MG Tablet PO SCH ×2 (08:26→17:55)
[2018-05-17 08:46] LABS: Albumin 1.8 g/dL (3.4-5.0); Anion Gap 9 meq/L (5-15); Aspartate Aminotransferase 81 U/L (15-37); Blood Urea Nitrogen 21 mg/dL (7-18); Calcium 8.6 mg/dL (8.5-10.1); Carbon Dioxide 25.1 meq/L (21.0-32.0); Chloride 103 meq/L (98-107); Glomerular Filtration Rate 60 mL/min (>89); Glucose,Random 80 mg/dL (74-106); Magnesium 2.3 mg/dL (1.5-2.5); Potassium 4.4 meq/L (3.5-5.1); Sodium 137 meq/L (136-145)
[2018-05-17 08:49] LABS: Alanine Aminotransferase 46 U/L (12-78); Alkaline Phosphatase 98 U/L (45-117); Total Protein 7.3 g/dL (6.4-8.2)
--- NOTE | 2018-05-17 09:17 | P.PN ---
Physical Exam Vital signs: Vital Signs 05/16/18 11:51 05/16/18 16:00 05/16/18 20:00 Temperature 98.4 F 98.3 F 98.6 F Pulse Rate 69 61 69 Respiratory Rate 18 18 18 Blood Pressure 133/65 119/59 L 121/63 Pulse Oximetry 100 99 100 05/16/18 23:53 05/17/18 00:00 05/17/18 04:00 Temperature 98.6 F 98.5 F Pulse Rate 65 69 116 H Respiratory Rate 18 18 Blood Pressure 113/57 L 121/72 Pulse Oximetry 99 98 Intake & Output 05/16/18 05/17/18 05/17/18 18:59 06:59 18:59 Intake Total 2480 / 2480 1000 / 1000 1000 / 1000 Output Total 700 / 700 Balance 2480 / 2480 300 / 300 1000 / 1000 Weight 84.822 kg 128.9 kg Intake: IV 2000 / 2000 1000 / 1000 1000 / 1000 NS Inj 1,000 ML @ 125 mls/hr IV 2000 / 2000 1000 / 1000 1000 / 1000 .CONT .Q8H [facility] Rx#:[id number] Oral 480 / 480 Output: Urine 700 / 700 Other: # Voids 1 Date of Last Bowel Movement 05/15/18 05/15/18 Weight On Admission 84.822 kg Results - Labs CBC & Chem 7: 05/17/18 05:34 05/17/18 05:34 Laboratory Results - last 24 hr 05/16/18 05/17/18 05/17/18 06:50 05:34 05:34 WBC 5.5 RBC 2.31 L Hgb 8.8 L Hct 26.1 L MCV 113.4 H MCH 38.1 H MCHC 33.6 RDW 16.2 Plt Count 75 L MPV 8.9 Prelim Diff (Auto) Slide review pending Neut % (Auto) 60.4 Lymph % (Auto) 13.8 [place] % (Auto) 20.9 H Eos % (Auto) 4.0 Baso % (Auto) 0.9 Neut # (Auto) 3.3 Lymph # (Auto) 0.8 L [place] # (Auto) 1.1 H Eos # (Auto) 0.2 Baso # (Auto) 0.0 Differential Comment . PT 19.5 H INR 1.9 Sodium Potassium Chloride Carbon Dioxide Anion Gap BUN Creatinine Estimated GFR Random Glucose Calcium Magnesium Total Bilirubin AST ALT Alkaline Phosphatase Total Protein Albumin Vitamin B12 1165 H 05/17/18 05:34 WBC RBC Hgb Hct MCV MCH MCHC RDW Plt Count MPV Prelim Diff (Auto) Neut % (Auto) Lymph % (Auto) [place] % (Auto) Eos % (Auto) Baso % (Auto) Neut # (Auto) Lymph # (Auto) [place] # (Auto) Eos # (Auto) Baso # (Auto) Differential Comment PT INR Sodium 137 Potassium 4.4 Chloride 103 Carbon Dioxide 25.1 Anion Gap 9 BUN 21 H Creatinine 1.44 H Estimated GFR 60 L Random Glucose 80 Calcium 8.6 Magnesium 2.3 Total Bilirubin 11.0 H AST 81 H ALT 46 Alkaline Phosphatase 98 Total Protein 7.3 Albumin 1.8 L Vitamin B12 Assessment and Plan - Assessment (1) Hepatic encephalopathy Code(s): K72.90 - Hepatic failure, unspecified without coma Status: Acute (2) Encephalopathy Code(s): G93.40 - Encephalopathy, unspecified Status: Acute (3) Near syncope Code(s): R55 - Syncope and collapse Status: Acute (4) Cirrhosis Code(s): K74.60 - Unspecified cirrhosis of liver Status: Chronic (5) Lactic acidosis Code(s): E87.2 - Acidosis Status: Acute (6) Pruritus Code(s): L29.9 - Pruritus, unspecified Status: Acute (7) Atrial fibrillation Code(s): I48.91 - Unspecified atrial fibrillation Status: Chronic (8) Coagulopathy Code(s): D68.9 - Coagulation defect, unspecified Status: Acute (9) Acute kidney injury Code(s): N17.9 - Acute kidney failure, unspecified Status: Acute (10) Anemia Code(s): D64.9 - Anemia, unspecified Status: Acute (4) Cirrhosis Qualifiers: Hepatic cirrhosis type: alcoholic cirrhosis Ascites presence: with ascites Qualified Code(s): K70.31 - Alcoholic cirrhosis of liver with ascites (7) Atrial fibrillation Qualifiers: Atrial fibrillation type: paroxysmal Qualified Code(s): I48.0 - Paroxysmal atrial fibrillation (10) Anemia Qualifiers: Anemia type: unspecified type Qualified Code(s): D64.9 - Anemia, unspecified
[2018-05-17 09:21] LABS: Eosinophils 4 % (0-4); Lymphocytes 7 % (9-44); Metamyelocytes 2 % (0-1); Monocytes 8 % (0-8); Myelocytes 1 % (0-0); Tallied Nucleated RBC 1 (0-0)
[2018-05-17 09:22] LABS: Rouleaux Present
[2018-05-17 09:23] LABS: Platelet Morphology Normal (Normal)
[2018-05-17] MEDS ORDERED: Albumin Human 25% Inj 200 ML IV.SIG ONE (11:10)
--- NOTE | 2018-05-17 11:31 | US ---
EXAM DATE: 05/17/2018 11:03 AM EDT AGE/SEX: 63 years / Male INDICATIONS: Ascites. CLINICAL DATA: This is the patient's subsequent encounter. Patient reports that signs and symptoms h ave been present for 4 - 6 months and indicates a pain score of 0/10. MEDICAL/SURGICAL HISTORY: Cirrhosis. Hepatitis C. Carcinoma, prostatic. Psoriasis. . Prosta te biopsy. COMPARISON: [facility] – [place] ABDOMEN COMPLETE, 05/15/2018. . FLUID: Total volume of 7800 cc of clear, yellow fluid was removed. Fluid was discarded. Paracentesis was the rapeutic only. . . TECHNIQUE: Ultrasound guidance for abdominal paracentesis. Paracentesis. The risks, benefits, and alternatives to ultrasound guided paracentesis were explained to the patient in detail including the risk of bleeding and infection. Written and verbal informed consent was obt ained. With the patient on the ultrasound table, ultrasound imaging was used to select the most appropriate approach for paracentesis. Overlying skin was prepped and draped in the usual sterile fashion and wi th a local anesthetic, a dermatotomy was made with an 11 blade scalpel. A 6 [place] [id number] ca theter was introduced into the peritoneal cavity and fluid was collected. Post procedure scanning reveals no hematoma or other complication. The patient tolerated the procedu re well and left the ultrasound suite in stable condition. CONCLUSION: 1. Uncomplicated routine therapeutic paracentesis. Electronically signed by: Jerman Graham MD 05/17/2018 11:30 AM EDT
--- NOTE | 2018-05-17 13:09 | P.PNIM ---
Subjective Interval history: Patient remains encephalopathic. Not staying awake. Discussed with his . He is status post paracentesis. Physical Exam Vital signs: Vital Signs 05/16/18 16:00 05/16/18 20:00 05/16/18 23:53 Temperature 98.3 F 98.6 F Pulse Rate 61 69 65 Respiratory Rate 18 18 Blood Pressure 119/59 L 121/63 Pulse Oximetry 99 100 05/17/18 00:00 05/17/18 04:00 05/17/18 08:00 Temperature 98.6 F 98.5 F 97.8 F Pulse Rate 69 116 H 67 Respiratory Rate 18 18 19 Blood Pressure 113/57 L 121/72 103/54 L Pulse Oximetry 99 98 100 05/17/18 09:00 05/17/18 09:38 05/17/18 10:45 Temperature 98.7 F Pulse Rate 69 54 L 62 Respiratory Rate 18 18 Blood Pressure 134/84 114/66 Pulse Oximetry 99 100 05/17/18 12:00 05/17/18 12:58 Temperature 97.6 F Pulse Rate 71 73 Respiratory Rate 19 Blood Pressure 121/75 Pulse Oximetry 99 Intake & Output 05/16/18 05/17/18 05/17/18 18:59 06:59 18:59 Intake Total 2480 / 2480 1000 / 1000 1000 / 1000 Output Total 700 / 700 Balance 2480 / 2480 300 / 300 1000 / 1000 Weight 84.822 kg 128.9 kg Intake: IV 2000 / 1999 1000 / 1000 1000 / 1000 NS Inj 1,000 ML @ 125 mls/hr IV 2000 / 2000 1000 / 1000 1000 / 1000 .CONT .Q8H [facility] Rx#:[id number] Oral 480 / 480 Output: Urine 700 / 700 Other: # Voids 1 1 Date of Last Bowel Movement 05/15/18 05/15/18 Weight On Admission 84.822 kg Narrative: GENERAL: Very somnolent. No acute distress. CARDIOVASCULAR: S1-S2, occasionally irregular. RESPIRATORY: No accessory muscle use. Clear to auscultation but diminished at bases. Breath sounds equal bilaterally. GASTROINTESTINAL: Abdomen obese, soft, nondistended. MUSCULOSKELETAL: Extremities without clubbing, cyanosis, trace ankle edema. No obvious deformities. NEUROLOGICAL: Briefly weight, but quickly falls asleep. Moves extremities spontaneously 4. PSYCHIATRIC: Calm Results - Labs CBC & Chem 7: 05/17/18 05:34 05/17/18 05:34 Laboratory Results - last 24 hr 05/17/18 05/17/18 05/17/18 05:34 05:34 05:34 WBC 5.5 RBC 2.31 L Hgb 8.8 L Hct 26.1 L MCV 113.4 H MCH 38.1 H MCHC 33.6 RDW 16.2 Plt Count 75 L MPV 8.9 Prelim Diff (Auto) Slide review pending Neut % (Auto) 60.4 Lymph % (Auto) 13.8 [place] % (Auto) 20.9 H Eos % (Auto) 4.0 Baso % (Auto) 0.9 Neut # (Auto) 3.3 Lymph # (Auto) 0.8 L [place] # (Auto) 1.1 H Eos # (Auto) 0.2 Baso # (Auto) 0.0 WBC Differential Manual diff final Seg Neuts % (Manual) 70 Band Neuts % (Manual) 7 H Lymphocytes % (Manual) 7 L Monocytes % (Manual) 8 Eosinophils % (Manual) 4 Basophils % (Manual) 1 Metamyelocytes % (Man) 2 H Myelocytes % (Man) 1 H Abs Neuts (Manual) 4.4 Nucleated RBCs/100 WBC 1 H Differential Comment . Platelet Estimate Low L Platelet Morphology Normal Rouleaux Present H PT 19.5 H INR 1.9 Sodium 137 Potassium 4.4 Chloride 103 Carbon Dioxide 25.1 Anion Gap 9 BUN 21 H Creatinine 1.44 H Estimated GFR 60 L Random Glucose 80 Calcium 8.6 Magnesium 2.3 Total Bilirubin 11.0 H AST 81 H ALT 46 Alkaline Phosphatase 98 Total Protein 7.3 Albumin 1.8 L Microbiology 05/16/18 05:13 Clean Catch Urine Urine Culture - Preliminary No growth in 24 hours - Imaging Impressions Paracentesis Ultrasound 05/17/18 00:00 CONCLUSION: 1. Uncomplicated routine therapeutic paracentesis. Assessment and Plan - Assessment (1) Hepatic encephalopathy Code(s): K72.90 - Hepatic failure, unspecified without coma Status: Acute (2) Encephalopathy Code(s): G93.40 - Encephalopathy, unspecified Status: Acute (3) Near syncope Code(s): R55 - Syncope and collapse Status: Acute (4) Cirrhosis Code(s): K74.60 - Unspecified cirrhosis of liver Status: Chronic (5) Lactic acidosis Code(s): E87.2 - Acidosis Status: Acute (6) Pruritus Code(s): L29.9 - Pruritus, unspecified Status: Acute (7) Atrial fibrillation Code(s): I48.91 - Unspecified atrial fibrillation Status: Chronic (8) Coagulopathy Code(s): D68.9 - Coagulation defect, unspecified Status: Acute (9) Acute kidney injury Code(s): N17.9 - Acute kidney failure, unspecified Status: Acute (10) Anemia Code(s): D64.9 - Anemia, unspecified Status: Acute - Plan 63-year-old male with a PMH of Hepatitis C, Cirrhosis, A-fib and h/o Prostate CA who was brought to the ER by secondary to lethargy and AMS. Per , pt w/ significant pruritus for few months, has used Benadryl w/ no relief, seen in ER on 05/12/18 and given prescription for Hydroxyzine 50mg PO q6-8h prn. states pt has had significant lethargy and "shaking" since starting new medication. While in Triage, pt had near syncopal event and was brought straight back. Denied fever, chills, chest pain, SOB or nausea/vomiting/ diarrhea. Hepatic encephalopathy: Known cirrhosis, hepatitis C, ascites. - Discussed with GI. Patient was lost to follow-up outpatient. -He will follow-up outpatient with GI. - Continue low-dose Lasix. Blood pressure not able to tolerate higher dose of spironolactone. - Increase lactulose. Monitor for response. Acute kidney versus chronic kidney disease. - Suspect renal function is close to baseline. Currently stable Avoid nephrotoxic agents Follow BMP Cirrhosis and ascites -Status post paracentesis today. Will likely need repeat paracentesis in the future. To follow-up outpatient -Continue Lasix, Inderal, resume Aldactone once BP is able to tolerate. Paroxysmal A. fib with occasional bursts of RVR, occasional PVC -Continue with propranolol 10 mg 3 times daily No anticoagulation due to coagulopathy -Had recent echocardiogram, EF 55-60%. Coagulopathy, secondary to liver disease Status post vitamin K. INR stable. Pruritus, secondary to cholestasis from underlying liver failure. Continue with rifaximin and cholestyramine -GI following Anemia,chronic vs acute. Had recent EGD with findings of AVMs, watermelon stomach and varices. -Follow HH -Monitor for bleeding Discharge Planning: Plan to discharge home with home health once encephalopathy improved. (4) Cirrhosis Qualifiers: Hepatic cirrhosis type: alcoholic cirrhosis Ascites presence: with ascites Qualified Code(s): K70.31 - Alcoholic cirrhosis of liver with ascites (7) Atrial fibrillation Qualifiers: Atrial fibrillation type: paroxysmal Qualified Code(s): I48.0 - Paroxysmal atrial fibrillation (10) Anemia Qualifiers: Anemia type: unspecified type Qualified Code(s): D64.9 - Anemia, unspecified
[2018-05-17] MEDS ORDERED: Lidocaine PF 1% Inj 5 ML Vial ONE ×2 (15:07→15:08)
--- NOTE | 2018-05-17 15:20 | P.PNGI ---
Subjective Interval history: Pt denies any nausea and vomiting today, does report getting sick to his stomach yesterday with one episode of emesis. Denies hematemesis and coffee ground emesis. Denies abdominal pain. <Maryam Braden - Last Filed: 05/17/18 15:04> Physical Exam Vital signs: Vital Signs 05/16/18 16:00 05/16/18 20:00 05/16/18 23:53 Temperature 98.3 F 98.6 F Pulse Rate 61 69 65 Respiratory Rate 18 18 Blood Pressure 119/59 L 121/63 Pulse Oximetry 99 100 05/17/18 00:00 05/17/18 04:00 05/17/18 08:00 Temperature 98.6 F 98.5 F 97.8 F Pulse Rate 69 116 H 67 Respiratory Rate 18 18 19 Blood Pressure 113/57 L 121/72 103/54 L Pulse Oximetry 99 98 100 05/17/18 09:00 05/17/18 09:38 05/17/18 10:45 Temperature 98.7 F Pulse Rate 69 54 L 62 Respiratory Rate 18 18 Blood Pressure 134/84 114/66 Pulse Oximetry 99 100 05/17/18 12:00 05/17/18 12:58 Temperature 97.6 F Pulse Rate 71 73 Respiratory Rate 19 Blood Pressure 121/75 Pulse Oximetry 99 Intake & Output 05/16/18 05/17/18 05/17/18 18:59 06:59 18:59 Intake Total 2480 / 2480 1000 / 1000 1200 / 1200 Output Total 700 / 700 Balance 2480 / 2480 300 / 300 1200 / 1200 Weight 84.822 kg 128.9 kg Intake: IV 2000 / 2000 1000 / 1000 1200 / 1200 NS Inj 1,000 ML @ 125 mls/hr IV 2000 / 2000 1000 / 1000 1200 / 1200 .CONT .Q8H [facility] Rx#:[id number] Oral 480 / 480 Output: Urine 700 / 700 Other: # Voids 1 1 Date of Last Bowel Movement 05/15/18 05/15/18 Weight On Admission 84.822 kg - Constitutional no acute distress - Routine HEENT Exam Head: Present: normocephalic, atraumatic - Routine Respiratory Exam Absent: accessory muscle use - Routine Abdominal Exam Present: soft, normoactive bowel sounds, distended. Absent: tenderness - Routine Skin Exam Present: dry, warm - Routine Neurological Exam Present: alert, oriented X3 <Maryam Braden - Last Filed: 05/17/18 15:04> Vital signs: Vital Signs 05/16/18 20:00 05/16/18 23:53 05/17/18 00:00 Temperature 98.6 F 98.6 F Pulse Rate 69 65 69 Respiratory Rate 18 18 Blood Pressure 121/63 113/57 L Pulse Oximetry 100 99 05/17/18 04:00 05/17/18 08:00 05/17/18 09:00 Temperature 98.5 F 97.8 F Pulse Rate 116 H 67 69 Respiratory Rate 18 19 Blood Pressure 121/72 103/54 L Pulse Oximetry 98 100 05/17/18 09:38 05/17/18 10:45 05/17/18 12:00 Temperature 98.7 F 97.6 F Pulse Rate 54 L 62 71 Respiratory Rate 18 18 19 Blood Pressure 134/84 114/66 121/75 Pulse Oximetry 99 100 99 05/17/18 12:58 Temperature Pulse Rate 73 Respiratory Rate Blood Pressure Pulse Oximetry Intake & Output 05/16/18 05/17/18 05/17/18 18:59 06:59 18:59 Intake Total 2480 / 2480 1000 / 1000 1200 / 1200 Output Total 700 / 700 Balance 2480 / 2480 300 / 300 1200 / 1200 Weight 84.822 kg 128.9 kg Intake: IV 2000 / 2000 1000 / 1000 1200 / 1200 NS Inj 1,000 ML @ 125 mls/hr IV 2000 / 2000 1000 / 1000 1200 / 1200 .CONT .Q8H [facility] Rx#:[id number] Oral 480 / 480 Output: Urine 700 / 700 Other: # Voids 1 1 Date of Last Bowel Movement 05/15/18 05/15/18 Weight On Admission 84.822 kg <Lori Mayer - Last Filed: 05/17/18 16:17> Results - Labs CBC & Chem 7: 05/17/18 05:34 05/17/18 05:34 Laboratory Results - last 24 hr 05/17/18 05/17/18 05/17/18 05:34 05:34 05:34 WBC 5.5 RBC 2.31 L Hgb 8.8 L Hct 26.1 L MCV 113.4 H MCH 38.1 H MCHC 33.6 RDW 16.2 Plt Count 75 L MPV 8.9 Prelim Diff (Auto) Slide review pending Neut % (Auto) 60.4 Lymph % (Auto) 13.8 [place] % (Auto) 20.9 H Eos % (Auto) 4.0 Baso % (Auto) 0.9 Neut # (Auto) 3.3 Lymph # (Auto) 0.8 L [place] # (Auto) 1.1 H Eos # (Auto) 0.2 Baso # (Auto) 0.0 WBC Differential Manual diff final Seg Neuts % (Manual) 70 Band Neuts % (Manual) 7 H Lymphocytes % (Manual) 7 L Monocytes % (Manual) 8 Eosinophils % (Manual) 4 Basophils % (Manual) 1 Metamyelocytes % (Man) 2 H Myelocytes % (Man) 1 H Abs Neuts (Manual) 4.4 Nucleated RBCs/100 WBC 1 H Differential Comment . Platelet Estimate Low L Platelet Morphology Normal Rouleaux Present H PT 19.5 H INR 1.9 Sodium 137 Potassium 4.4 Chloride 103 Carbon Dioxide 25.1 Anion Gap 9 BUN 21 H Creatinine 1.44 H Estimated GFR 60 L Random Glucose 80 Calcium 8.6 Magnesium 2.3 Total Bilirubin 11.0 H AST 81 H ALT 46 Alkaline Phosphatase 98 Total Protein 7.3 Albumin 1.8 L Microbiology 05/16/18 05:13 Clean Catch Urine Urine Culture - Preliminary No growth in 24 hours - Imaging Impressions Paracentesis Ultrasound 05/17/18 00:00 CONCLUSION: 1. Uncomplicated routine therapeutic paracentesis. <Maryam Braden - Last Filed: 05/17/18 15:04> - Labs CBC & Chem 7: 05/17/18 05:34 05/17/18 05:34 Laboratory Results - last 24 hr 05/17/18 05/17/18 05/17/18 05:34 05:34 05:34 WBC 5.5 RBC 2.31 L Hgb 8.8 L Hct 26.1 L MCV 113.4 H MCH 38.1 H MCHC 33.6 RDW 16.2 Plt Count 75 L MPV 8.9 Prelim Diff (Auto) Slide review pending Neut % (Auto) 60.4 Lymph % (Auto) 13.8 [place] % (Auto) 20.9 H Eos % (Auto) 4.0 Baso % (Auto) 0.9 Neut # (Auto) 3.3 Lymph # (Auto) 0.8 L [place] # (Auto) 1.1 H Eos # (Auto) 0.2 Baso # (Auto) 0.0 WBC Differential Manual diff final Seg Neuts % (Manual) 70 Band Neuts % (Manual) 7 H Lymphocytes % (Manual) 7 L Monocytes % (Manual) 8 Eosinophils % (Manual) 4 Basophils % (Manual) 1 Metamyelocytes % (Man) 2 H Myelocytes % (Man) 1 H Abs Neuts (Manual) 4.4 Nucleated RBCs/100 WBC 1 H Differential Comment . Platelet Estimate Low L Platelet Morphology Normal Rouleaux Present H PT 19.5 H INR 1.9 Sodium 137 Potassium 4.4 Chloride 103 Carbon Dioxide 25.1 Anion Gap 9 BUN 21 H Creatinine 1.44 H Estimated GFR 60 L Random Glucose 80 Calcium 8.6 Magnesium 2.3 Total Bilirubin 11.0 H AST 81 H ALT 46 Alkaline Phosphatase 98 Total Protein 7.3 Albumin 1.8 L Microbiology 05/16/18 05:13 Clean Catch Urine Urine Culture - Preliminary No growth in 24 hours - Imaging Impressions Paracentesis Ultrasound 05/17/18 00:00 CONCLUSION: 1. Uncomplicated routine therapeutic paracentesis. <Lori Mayer - Last Filed: 05/17/18 16:17> Assessment and Plan (1) Hyperammonemia Status: Acute Code(s): E72.20 - Disorder of urea cycle metabolism, unspecified (2) Hepatic encephalopathy Status: Acute Code(s): K72.90 - Hepatic failure, unspecified without coma (3) Liver disease, chronic, with cirrhosis Status: Chronic Code(s): K74.60 - Unspecified cirrhosis of liver; K76.9 - Liver disease, unspecified (4) Ascites of liver Status: Chronic Code(s): R18.8 - Other ascites (5) Altered mental status Status: Acute Code(s): R41.82 - Altered mental status, unspecified (6) Cirrhosis Status: Chronic Code(s): K74.60 - Unspecified cirrhosis of liver - Plan Assessment: - Hepatitis C, Genotype 1 a, quant 314,000 Treatment naive with recent diagnosis of cirrhosis while hospitalized at [facility] in [place] in February. Previously seen by our service in March. Pt reports was advised for possibly [facility], because he is self pay and they offer financial assistance. Has not followed up with GI outpatient. Complaints of abdominal and lower extremity swelling, worse over the past couple days. Had a paracentesis done in February at [facility] with 7 L of fluid removed. S/P paracentesis (05/17) of 7800 cc of clear, yellow fluid was removed. - Hypoalbuminemia, thrombocytopenia, and coagulopathy noted- secondary to cirrhosis - Anemia with no evidence of GIB - H/H stable since admission EGD (03/22) --> Esophageal varices grade 1, Gastric AVM that was actively bleeding in the mid gastric body S/P cauterization, signs of watermelon stomach in the antrum S/P cauterization. Plan: Hep C treatment outpatient Assistance programs through [facility] Continue Lasix and Spironolactone Continue Xifaxan Continue Lactulose Continue Protonix Further recommendations to follow Pt has been seen and examined by myself and Dr. Mayer and this note is written on his behalf <Maryam Braden - Last Filed: 05/17/18 15:04> (1) Hyperammonemia Status: Acute Code(s): E72.20 - Disorder of urea cycle metabolism, unspecified (2) Hepatic encephalopathy Status: Acute Code(s): K72.90 - Hepatic failure, unspecified without coma (3) Liver disease, chronic, with cirrhosis Status: Chronic Code(s): K74.60 - Unspecified cirrhosis of liver; K76.9 - Liver disease, unspecified (4) Ascites of liver Status: Chronic Code(s): R18.8 - Other ascites (5) Altered mental status Status: Acute Code(s): R41.82 - Altered mental status, unspecified (6) Cirrhosis Status: Chronic Code(s): K74.60 - Unspecified cirrhosis of liver - Attending Attestation Agree with above assessment and plan. Will follow up with you. <Lori Mayer - Last Filed: 05/17/18 16:17> <Maryam Braden - Last Filed: 05/17/18 15:04> (5) Altered mental status Qualifiers: Altered mental status type: transient alteration of awareness Qualified Code( s): R40.4 - Transient alteration of awareness (6) Cirrhosis Qualifiers: Hepatic cirrhosis type: alcoholic cirrhosis Ascites presence: with ascites Qualified Code(s): K70.31 - Alcoholic cirrhosis of liver with ascites <Lori Mayer - Last Filed: 05/17/18 16:17> (5) Altered mental status Qualifiers: Altered mental status type: transient alteration of awareness Qualified Code( s): R40.4 - Transient alteration of awareness (6) Cirrhosis Qualifiers: Hepatic cirrhosis type: alcoholic cirrhosis Ascites presence: with ascites Qualified Code(s): K70.31 - Alcoholic cirrhosis of liver with ascites
[2018-05-18 06:38] LABS: Hematocrit 24.5 % (39.0-51.0); Hemoglobin 8.2 gm/dL (13.0-17.0); Mean Corpuscular HGB Conc 33.3 % (32.0-36.0); Mean Corpuscular Hemoglobin 37.9 pg (27.0-34.0); Mean Corpuscular Volume 113.8 fL (80.0-100.0); Mean Platelet Volume 8.6 fL (7.0-11.0); Platelet Count 66 th/mm3 (150-450); Red Blood Count 2.15 mil/mm3 (4.50-5.90); Red Cell Distribution Width 15.8 % (11.6-17.2); White Blood Count 3.8 th/mm3 (4.0-11.0)
[2018-05-18 07:08] LABS: Albumin 1.9 g/dL (3.4-5.0); Calcium 8.3 mg/dL (8.5-10.1); Carbon Dioxide 22.7 meq/L (21.0-32.0); Potassium 3.9 meq/L (3.5-5.1)
[2018-05-18 07:11] LABS: Total Protein 6.4 g/dL (6.4-8.2)
[2018-05-18] MEDS: Senna/Docusate Sodium 8.6/50 MG Tablet PO SCH ×2 (08:06→20:15)
[2018-05-18] MEDS: rifAXIMin 550 MG Tablet PO SCH ×2 (08:09→20:15)
[2018-05-18] MEDS: Furosemide 20 MG Tablet PO SCH ×2 (08:09→17:07)
[2018-05-18] MEDS: Loratadine 10 MG Tablet PO SCH (08:09)
[2018-05-18] MEDS: Pantoprazole Inj 40 MG Vial IV.PUSH SCH ×2 (08:09→20:15)
--- NOTE | 2018-05-18 13:15 | P.PNGI ---
Subjective Interval history: Pt tired. Denies nausea, vomiting, abdominal pain. Was able to be up and walking around earlier. No complaints at this time. <Maryam Braden - Last Filed: 05/18/18 13:14> Physical Exam Vital signs: Vital Signs 05/17/18 16:00 05/17/18 17:01 05/17/18 20:00 Temperature 97.7 F 98.4 F Pulse Rate 61 65 71 Respiratory Rate 19 18 Blood Pressure 137/62 130/65 Pulse Oximetry 100 100 05/17/18 20:30 05/18/18 00:00 05/18/18 04:00 Temperature 97.8 F 98.8 F Pulse Rate 72 116 H 96 H Respiratory Rate 20 18 Blood Pressure 109/56 L 121/58 L Pulse Oximetry 97 96 05/18/18 07:00 05/18/18 08:00 05/18/18 09:00 Temperature 97.9 F Pulse Rate 70 79 Respiratory Rate 12 16 Blood Pressure 126/74 Pulse Oximetry 100 05/18/18 12:00 Temperature 98.6 F Pulse Rate 70 Respiratory Rate 17 Blood Pressure 133/70 Pulse Oximetry 100 Intake & Output 05/17/18 05/18/18 05/18/18 18:59 06:59 18:59 Intake Total 2400 / 2400 240 / 240 Output Total 200 / 200 Balance 2400 / 2400 -200 / -200 240 / 240 Weight 122.9 kg Intake: IV 1400 / 1400 NS Inj 1,000 ML @ 125 mls/hr IV 1200 / 1200 .CONT .Q8H [facility] Rx#:[id number] Flexbumin 25% Inj 200 ML @ 60 200 / 200 mls/hr IV.SIG ONCE ONE Rx#: [id number] Oral 1000 / 1000 240 / 240 Output: Urine 200 / 200 Other: # Voids 1 Date of Last Bowel Movement 05/18/18 05/18/18 - Constitutional no acute distress - Routine HEENT Exam Head: Present: normocephalic, atraumatic - Routine Respiratory Exam Absent: accessory muscle use - Routine Abdominal Exam Present: soft, normoactive bowel sounds, distended. Absent: tenderness - Routine Skin Exam Present: dry, warm - Routine Neurological Exam Present: alert, oriented X3 <Maryam Braden - Last Filed: 05/18/18 13:14> Vital signs: Vital Signs 05/17/18 16:00 05/17/18 17:01 05/17/18 20:00 Temperature 97.7 F 98.4 F Pulse Rate 61 65 71 Respiratory Rate 19 18 Blood Pressure 137/62 130/65 Pulse Oximetry 100 100 05/17/18 20:30 05/18/18 00:00 05/18/18 04:00 Temperature 97.8 F 98.8 F Pulse Rate 72 116 H 96 H Respiratory Rate 20 18 Blood Pressure 109/56 L 121/58 L Pulse Oximetry 97 96 05/18/18 07:00 05/18/18 08:00 05/18/18 09:00 Temperature 97.9 F Pulse Rate 70 79 Respiratory Rate 12 16 Blood Pressure 126/74 Pulse Oximetry 100 05/18/18 12:00 Temperature 98.6 F Pulse Rate 70 Respiratory Rate 17 Blood Pressure 133/70 Pulse Oximetry 100 Intake & Output 05/17/18 05/18/18 05/18/18 18:59 06:59 18:59 Intake Total 2400 / 2400 240 / 240 Output Total 200 / 200 Balance 2400 / 2400 -200 / -200 240 / 240 Weight 122.9 kg Intake: IV 1400 / 1400 NS Inj 1,000 ML @ 125 mls/hr IV 1200 / 1200 .CONT .Q8H [facility] Rx#:[id number] Flexbumin 25% Inj 200 ML @ 60 200 / 200 mls/hr IV.SIG ONCE ONE Rx#: [id number] Oral 1000 / 1000 240 / 240 Output: Urine 200 / 200 Other: # Voids 1 Date of Last Bowel Movement 05/18/18 05/18/18 <Lori Mayer A - Last Filed: 05/18/18 15:02> Results - Labs CBC & Chem 7: 05/18/18 04:44 05/18/18 04:44 Laboratory Results - last 24 hr 05/18/18 05/18/18 04:44 04:44 WBC 3.8 L RBC 2.15 L Hgb 8.2 L Hct 24.5 L MCV 113.8 H MCH 37.9 H MCHC 33.3 RDW 15.8 Plt Count 66 L MPV 8.6 Sodium 137 Potassium 3.9 Chloride 105 Carbon Dioxide 22.7 Anion Gap 9 BUN 18 Creatinine 1.26 Estimated GFR 70 L Random Glucose 111 H Calcium 8.3 L Total Bilirubin 10.2 H Direct Bilirubin 6.1 H Indirect Bilirubin 4.1 H AST 65 H ALT 38 Alkaline Phosphatase 84 Total Protein 6.4 D Albumin 1.9 L Microbiology 05/16/18 05:13 Clean Catch Urine Urine Culture - Final No growth in 48 hours <Maryam Braden - Last Filed: 05/18/18 13:14> - Labs CBC & Chem 7: 05/18/18 04:44 05/18/18 04:44 Laboratory Results - last 24 hr 05/18/18 05/18/18 04:44 04:44 WBC 3.8 L RBC 2.15 L Hgb 8.2 L Hct 24.5 L MCV 113.8 H MCH 37.9 H MCHC 33.3 RDW 15.8 Plt Count 66 L MPV 8.6 Sodium 137 Potassium 3.9 Chloride 105 Carbon Dioxide 22.7 Anion Gap 9 BUN 18 Creatinine 1.26 Estimated GFR 70 L Random Glucose 111 H Calcium 8.3 L Total Bilirubin 10.2 H Direct Bilirubin 6.1 H Indirect Bilirubin 4.1 H AST 65 H ALT 38 Alkaline Phosphatase 84 Total Protein 6.4 D Albumin 1.9 L Microbiology 05/16/18 05:13 Clean Catch Urine Urine Culture - Final No growth in 48 hours <Lori Mayer - Last Filed: 05/18/18 15:02> Assessment and Plan (1) Hyperammonemia Status: Acute Code(s): E72.20 - Disorder of urea cycle metabolism, unspecified (2) Hepatic encephalopathy Status: Acute Code(s): K72.90 - Hepatic failure, unspecified without coma (3) Liver disease, chronic, with cirrhosis Status: Chronic Code(s): K74.60 - Unspecified cirrhosis of liver; K76.9 - Liver disease, unspecified (4) Ascites of liver Status: Chronic Code(s): R18.8 - Other ascites (5) Altered mental status Status: Acute Code(s): R41.82 - Altered mental status, unspecified (6) Cirrhosis Status: Chronic Code(s): K74.60 - Unspecified cirrhosis of liver - Plan Assessment: - Hepatitis C, Genotype 1 a, quant 314,000 Treatment naive with recent diagnosis of cirrhosis while hospitalized at [facility] in [place] in February. Previously seen by our service in March. Pt reports was advised for possibly [facility], because he is self pay and they offer financial assistance. Has not followed up with GI outpatient. Complaints of abdominal and lower extremity swelling, worse over the past couple days. Had a paracentesis done in February at [facility] with 7 L of fluid removed. S/P paracentesis (05/17) of 7800 cc of clear, yellow fluid was removed. - Hypoalbuminemia, thrombocytopenia, and coagulopathy noted- secondary to cirrhosis - Anemia with no evidence of GIB - H/H stable since admission EGD (03/22) --> Esophageal varices grade 1, Gastric AVM that was actively bleeding in the mid gastric body S/P cauterization, signs of watermelon stomach in the antrum S/P cauterization. (05/18) Pt with no complaints at this time. Was able to walk around some earlier. Denies nausea, vomiting, abdominal pain Plan: Hep C treatment outpatient Assistance programs through [facility] Continue Lasix and Spironolactone Continue Xifaxan Continue Lactulose Continue Protonix Continue current supportive care, our service will sign off, please reconsult as needed Have pt follow up with GI after DC Pt has been seen and examined by myself and Dr. Mayer and this note is written on his behalf <Maryam Braden - Last Filed: 05/18/18 13:14> (1) Hyperammonemia Status: Acute Code(s): E72.20 - Disorder of urea cycle metabolism, unspecified (2) Hepatic encephalopathy Status: Acute Code(s): K72.90 - Hepatic failure, unspecified without coma (3) Liver disease, chronic, with cirrhosis Status: Chronic Code(s): K74.60 - Unspecified cirrhosis of liver; K76.9 - Liver disease, unspecified (4) Ascites of liver Status: Chronic Code(s): R18.8 - Other ascites (5) Altered mental status Status: Acute Code(s): R41.82 - Altered mental status, unspecified (6) Cirrhosis Status: Chronic Code(s): K74.60 - Unspecified cirrhosis of liver - Attending Attestation Agree with plan as above, discussed with the patient for the need of outpatient follow up. Please notify us if needed during this hospitalization. <Lori Mayer - Last Filed: 05/18/18 15:02> <Maryam Braden - Last Filed: 05/18/18 13:14> (5) Altered mental status Qualifiers: Altered mental status type: transient alteration of awareness Qualified Code( s): R40.4 - Transient alteration of awareness (6) Cirrhosis Qualifiers: Hepatic cirrhosis type: alcoholic cirrhosis Ascites presence: with ascites Qualified Code(s): K70.31 - Alcoholic cirrhosis of liver with ascites <Lori Mayer - Last Filed: 05/18/18 15:02> (5) Altered mental status Qualifiers: Altered mental status type: transient alteration of awareness Qualified Code( s): R40.4 - Transient alteration of awareness (6) Cirrhosis Qualifiers: Hepatic cirrhosis type: alcoholic cirrhosis Ascites presence: with ascites Qualified Code(s): K70.31 - Alcoholic cirrhosis of liver with ascites
--- NOTE | 2018-05-18 15:29 | P.PNIM ---
Subjective Interval history: Encephalopathy improving. Slightly more awake today. He was able to get up and work with physical therapy. Discussed with his at bedside. Physical Exam Vital signs: Vital Signs 05/17/18 16:00 05/17/18 17:01 05/17/18 20:00 Temperature 97.7 F 98.4 F Pulse Rate 61 65 71 Respiratory Rate 19 18 Blood Pressure 137/62 130/65 Pulse Oximetry 100 100 05/17/18 20:30 05/18/18 00:00 05/18/18 04:00 Temperature 97.8 F 98.8 F Pulse Rate 72 116 H 96 H Respiratory Rate 20 18 Blood Pressure 109/56 L 121/58 L Pulse Oximetry 97 96 05/18/18 07:00 05/18/18 08:00 05/18/18 09:00 Temperature 97.9 F Pulse Rate 70 79 Respiratory Rate 12 16 Blood Pressure 126/74 Pulse Oximetry 100 05/18/18 12:00 Temperature 98.6 F Pulse Rate 70 Respiratory Rate 17 Blood Pressure 133/70 Pulse Oximetry 100 Intake & Output 05/17/18 05/18/18 05/18/18 18:59 06:59 18:59 Intake Total 2400 / 2400 240 / 240 Output Total 200 / 200 Balance 2400 / 2400 -200 / -200 240 / 240 Weight 122.9 kg Intake: IV 1400 / 1400 NS Inj 1,000 ML @ 125 mls/hr IV 1200 / 1200 .CONT .[facility] Rx#:[id number] Flexbumin 25% Inj 200 ML @ 60 200 / 200 mls/hr IV.SIG ONCE ONE Rx#: [id number] Oral 1000 / 1000 240 / 240 Output: Urine 200 / 200 Other: # Voids 1 Date of Last Bowel Movement 05/18/18 05/18/18 Narrative: GENERAL: Somnolent. No acute distress. CARDIOVASCULAR: S1-S2, occasionally irregular. RESPIRATORY: No accessory muscle use. Clear to auscultation but diminished at bases. Breath sounds equal bilaterally. GASTROINTESTINAL: Abdomen obese, soft, nondistended. MUSCULOSKELETAL: Extremities without clubbing, cyanosis, trace ankle edema. No obvious deformities. NEUROLOGICAL: Somnolent. Moves extremities spontaneously 4. PSYCHIATRIC: Calm Results - Labs CBC & Chem 7: 05/18/18 04:44 05/18/18 04:44 Laboratory Results - last 24 hr 05/18/18 05/18/18 04:44 04:44 WBC 3.8 L RBC 2.15 L Hgb 8.2 L Hct 24.5 L MCV 113.8 H MCH 37.9 H MCHC 33.3 RDW 15.8 Plt Count 66 L MPV 8.6 Sodium 137 Potassium 3.9 Chloride 105 Carbon Dioxide 22.7 Anion Gap 9 BUN 18 Creatinine 1.26 Estimated GFR 70 L Random Glucose 111 H Calcium 8.3 L Total Bilirubin 10.2 H Direct Bilirubin 6.1 H Indirect Bilirubin 4.1 H AST 65 H ALT 38 Alkaline Phosphatase 84 Total Protein 6.4 D Albumin 1.9 L Microbiology 05/16/18 05:13 Clean Catch Urine Urine Culture - Final No growth in 48 hours Assessment and Plan - Assessment (1) Hepatic encephalopathy Code(s): K72.90 - Hepatic failure, unspecified without coma Status: Acute (2) Encephalopathy Code(s): G93.40 - Encephalopathy, unspecified Status: Acute (3) Near syncope Code(s): R55 - Syncope and collapse Status: Acute (4) Cirrhosis Code(s): K74.60 - Unspecified cirrhosis of liver Status: Chronic (5) Lactic acidosis Code(s): E87.2 - Acidosis Status: Acute (6) Pruritus Code(s): L29.9 - Pruritus, unspecified Status: Acute (7) Atrial fibrillation Code(s): I48.91 - Unspecified atrial fibrillation Status: Chronic (8) Coagulopathy Code(s): D68.9 - Coagulation defect, unspecified Status: Acute (9) Acute kidney injury Code(s): N17.9 - Acute kidney failure, unspecified Status: Acute (10) Anemia Code(s): D64.9 - Anemia, unspecified Status: Acute - Plan 63-year-old male with a PMH of Hepatitis C, Cirrhosis, A-fib and h/o Prostate CA who was brought to the ER by secondary to lethargy and AMS. Per , pt w/ significant pruritus for few months, has used Benadryl w/ no relief, seen in ER on 05/12/18 and given prescription for Hydroxyzine 50mg PO q6-8h prn. states pt has had significant lethargy and "shaking" since starting new medication. While in Triage, pt had near syncopal event and was brought straight back. Denied fever, chills, chest pain, SOB or nausea/vomiting/ diarrhea. Hepatic encephalopathy: Known cirrhosis, hepatitis C, ascites. - Discussed with GI. Patient was lost to follow-up outpatient. -He will follow-up outpatient with GI. - Continue low-dose Lasix. Blood pressure not able to tolerate higher dose of spironolactone. -Continue lactulose. Monitor for response. Acute kidney versus chronic kidney disease. - Suspect renal function is close to baseline. Currently stable Avoid nephrotoxic agents Follow BMP Cirrhosis and ascites -Status post paracentesis on 05/17/18. Will likely need repeat paracentesis in the future. To follow-up outpatient -Continue Lasix, Inderal, resume Aldactone once BP is able to tolerate. Paroxysmal A. fib with occasional bursts of RVR, occasional PVC -Continue with propranolol 10 mg 3 times daily No anticoagulation due to coagulopathy -Had recent echocardiogram, EF 55-60%. Coagulopathy, secondary to liver disease Status post vitamin K. INR stable. Pruritus, secondary to cholestasis from underlying liver failure. Continue with rifaximin and cholestyramine -GI following Anemia,chronic vs acute. Had recent EGD with findings of AVMs, watermelon stomach and varices. -Follow HH -Monitor for bleeding Discharge Planning: Possible discharge with home health tomorrow. (4) Cirrhosis Qualifiers: Hepatic cirrhosis type: alcoholic cirrhosis Ascites presence: with ascites Qualified Code(s): K70.31 - Alcoholic cirrhosis of liver with ascites (7) Atrial fibrillation Qualifiers: Atrial fibrillation type: paroxysmal Qualified Code(s): I48.0 - Paroxysmal atrial fibrillation (10) Anemia Qualifiers: Anemia type: unspecified type Qualified Code(s): D64.9 - Anemia, unspecified
[2018-05-18] MEDS ORDERED: Propranolol 10 MG Tablet PO ONE (19:15)
[2018-05-19 00:57] VITALS: O2SAT 100
[2018-05-19 08:04] LABS: Hematocrit 25.4 % (39.0-51.0); Hemoglobin 8.4 gm/dL (13.0-17.0); Mean Corpuscular HGB Conc 33.2 % (32.0-36.0); Mean Corpuscular Hemoglobin 37.8 pg (27.0-34.0); Mean Platelet Volume 8.4 fL (7.0-11.0); Platelet Count 71 th/mm3 (150-450); Red Blood Count 2.23 mil/mm3 (4.50-5.90); Red Cell Distribution Width 16.1 % (11.6-17.2); White Blood Count 4.3 th/mm3 (4.0-11.0)
[2018-05-19] MEDS: Loratadine 10 MG Tablet PO SCH (08:14)
[2018-05-19] MEDS: Propranolol 10 MG Tablet PO SCH ×2 (08:14→12:27)
[2018-05-19] MEDS: rifAXIMin 550 MG Tablet PO SCH (08:14)
[2018-05-19] MEDS: Furosemide 20 MG Tablet PO SCH (08:14)
[2018-05-19] MEDS: Senna/Docusate Sodium 8.6/50 MG Tablet PO SCH (08:14)
[2018-05-19] MEDS: Pantoprazole Inj 40 MG Vial IV.PUSH SCH (08:14)
[2018-05-19 08:32] LABS: Albumin 1.9 g/dL (3.4-5.0); Calcium 8.2 mg/dL (8.5-10.1); Carbon Dioxide 24.3 meq/L (21.0-32.0); Potassium 4.1 meq/L (3.5-5.1)
[2018-05-19 08:35] LABS: Total Protein 6.7 g/dL (6.4-8.2)
[2018-05-19 08:59] VITALS: BP 118/79; PULSE 75; RESP 14; TEMP 97.9
--- NOTE | 2018-05-19 11:32 | P.DCO ---
- Diagnosis (6) Cirrhosis - Physical Therapy Order: Evaluate and treat, Improve ambulation, Strength and gait training - Home Health Nursing Order: Medical education, Signs/symptoms of disease process, Nursing assessment with vital signs - Certification I have seen patient Eduardo Kaba on 05/19/18. My clinical findings support the need for the requested home health care services because: Limited mobility due to disease progression, Deconditioned with increased weakness, Limited ability to care for self I certify that my clinical findings support that this patient is homebound because: Unsteady gait/balance (6) Cirrhosis Qualifiers: Hepatic cirrhosis type: alcoholic cirrhosis Ascites presence: with ascites Qualified Code(s): K70.31 - Alcoholic cirrhosis of liver with ascites
--- NOTE | 2018-05-19 11:38 | P.DS ---
Date of admission: 05/15/18 11:14 Primary care physician: Laura Snell Brief History from admission: HPI from the admitting physician: This is a 63-year-old male with a PMH of Hepatitis C, Cirrhosis, A-fib and h/o Prostate CA who was brought to the ER by secondary to lethargy and AMS. Per , pt w/ significant pruritus for few months, has used Benadryl w/ no relief, seen in ER on 05/12/18 and given prescription for Hydroxyzine 50mg PO q6- 8h prn. states pt has had significant lethargy and "shaking" since starting new medication. While in Triage, pt had near syncopal event and was brought straight back. Denies fever, chills, chest pain, SOB or nausea/vomiting /diarrhea. states they moved to the area in March, do not have PCP or GI follow up yet. On arrival, BP 130/78, HR 92, O2 sat 98% on RA, Afebrile. WBC 3.4. Hemoglobin 10.0. Platelets 98, similar comparison to previous labs from . Creatinine 1.44, previously 1.48 on 05/12/2018. Lactic Acid 3.5. Total Bili 12.1. AST 120. ALT 59, ALP 133, similar to previous. Ammonia 42. CT Head with no acute findings. CXR negative. While in ER, pt remains lethargic, but able to answer questions/follow commands. Patient update on day of discharge: Patient reports he is feeling better. Discussed with his at bedside. He is more awake and moving around better. We discussed discharge planning at length and the need to follow-up outpatient. DS: Diagnosis - Discharge Diagnosis (1) Hyperammonemia Status: Acute (2) Hepatic encephalopathy Status: Acute (3) Liver disease, chronic, with cirrhosis Status: Chronic (4) Ascites of liver Status: Chronic (5) Near syncope Status: Acute (6) Cirrhosis Status: Chronic (7) Encephalopathy Status: Acute (8) Lactic acidosis Status: Acute (9) Pruritus Status: Acute (10) Atrial fibrillation Status: Chronic (11) Coagulopathy Status: Acute (12) Acute kidney injury Status: Acute (13) Anemia Status: Acute DS: Medications - Discharge Medications Prescriptions: cholestyramine-aspartame 2 g PO BID #60 g furosemide 40 mg PO DAILY #30 tab lactulose 30 ml PO QID 30 Days #3600 ml pantoprazole [Protonix] 40 mg PO DAILY #30 tab propranolol 10 mg PO TID #90 tab rifaximin [Xifaxan] 550 mg PO BID #60 tab spironolactone 100 mg PO DAILY #30 tab tamsulosin 0.4 mg PO DAILY #30 tab DS: Summary Hospital Course: 63-year-old male with a PMH of Hepatitis C, Cirrhosis, A-fib and h/o Prostate CA who was brought to the ER by secondary to lethargy and AMS. Per , pt w/ significant pruritus for few months, has used Benadryl w/ no relief, seen in ER on 05/12/18 and given prescription for Hydroxyzine 50mg PO q6-8h prn. states pt has had significant lethargy and "shaking" since starting new medication. While in Triage, pt had near syncopal event and was brought straight back. Denied fever, chills, chest pain, SOB or nausea/vomiting/ diarrhea. Patient treated for the following: Hepatic encephalopathy: Known cirrhosis, hepatitis C, ascites. - Discussed with GI. Patient was lost to follow-up outpatient. -He will follow-up outpatient with GI. - Continue Lasix, spironolactone. Outpatient follow-up with GI for treatment of hepatitis C. -Continue lactulose. Acute kidney versus chronic kidney disease. - Suspect renal function is close to baseline. Currently stable Avoid nephrotoxic agents Cirrhosis and ascites -Status post paracentesis on 05/17/18. Will likely need repeat paracentesis in the future. To follow-up outpatient -Continue Lasix, Inderal, Aldactone. Paroxysmal A. fib with occasional bursts of RVR, occasional PVC. Stabilize. -Continue with propranolol 10 mg 3 times daily No anticoagulation due to coagulopathy -Had recent echocardiogram, EF 55-60%. Coagulopathy, secondary to liver disease Status post vitamin K. INR stable. Pruritus, secondary to cholestasis from underlying liver failure. Continue with rifaximin and cholestyramine -GI following Anemia,chronic vs acute. Had recent EGD with findings of AVMs, watermelon stomach and varices. -Continue PPI. - Time Spent with Patient Total time spent providing and/or coordinating discharge services: Greater than 30 minutes - Quality: VTE Deep Vein Thrombosis/Pulmonary Embolism Present on Admission: No Exam Vital signs: Vital Signs 05/18/18 12:00 05/18/18 16:00 05/18/18 17:32 Temperature 98.6 F 98.3 F Pulse Rate 70 73 69 Respiratory Rate 17 16 Blood Pressure 133/70 119/67 Pulse Oximetry 100 100 05/18/18 20:00 05/19/18 00:00 05/19/18 03:18 Temperature 99.2 F 98.3 F Pulse Rate 76 93 H 92 H Respiratory Rate 18 20 Blood Pressure 131/70 Pulse Oximetry 97 100 05/19/18 04:00 05/19/18 07:10 05/19/18 08:00 Temperature 98.2 F 97.9 F Pulse Rate 59 L 75 Respiratory Rate 18 12 14 Blood Pressure 121/60 118/79 Pulse Oximetry 100 100 Intake & Output 05/18/18 05/19/18 05/19/18 18:59 06:59 18:59 Intake Total 720 / 720 240 / 240 Output Total 200 / 200 540 / 540 Balance 520 / 520 -300 / -300 Weight 65.9 kg Intake: Oral 720 / 720 240 / 240 Output: Urine 200 / 200 540 / 540 Other: # Voids 2 Date of Last Bowel Movement 05/18/18 05/18/18 # Bowel Movements 1 1 Narrative: GENERAL: No acute distress. CARDIOVASCULAR: S1-S2, occasionally irregular. RESPIRATORY: No accessory muscle use. Clear to auscultation but diminished at bases. Breath sounds equal bilaterally. GASTROINTESTINAL: Abdomen obese, soft, nondistended. MUSCULOSKELETAL: Extremities without clubbing, cyanosis, trace ankle edema. No obvious deformities. NEUROLOGICAL: Somnolent. Moves extremities spontaneously 4. PSYCHIATRIC: Calm Results Procedures completed during hospitalization: Paracentesis Labs on day of discharge: Labs from last 24 hours 05/19/18 05/19/18 07:11 07:11 WBC 4.3 RBC 2.23 L Hgb 8.4 L Hct 25.4 L MCV 114.0 H MCH 37.8 H MCHC 33.2 RDW 16.1 Plt Count 71 L MPV 8.4 Sodium 138 Potassium 4.1 Chloride 106 Carbon Dioxide 24.3 Anion Gap 8 BUN 14 Creatinine 1.22 Estimated GFR 73 L Random Glucose 100 Calcium 8.2 L Total Bilirubin 9.5 H Direct Bilirubin 5.7 H Indirect Bilirubin 3.8 H AST 73 H ALT 41 Alkaline Phosphatase 93 Total Protein 6.7 Albumin 1.9 L - Impressions ITS Impressions Chest X-Ray 05/14/18 16:21 CONCLUSION: Negative examination. The right hemidiaphragm is elevated. Head CT 05/14/18 16:21 CONCLUSION: 1. Negative CT Head non contrast. . Abdomen Ultrasound 05/15/18 00:00 CONCLUSION: 1. No evidence of post paracentesis complication. 2. Persistent moderate ascites. 3. Abnormal hepatic echotexture characteristic of chronic hepatocellular disease. 4. Mild splenomegaly 5. Contracted gallbladder with thickened wall Paracentesis Ultrasound 05/17/18 00:00 CONCLUSION: 1. Uncomplicated routine therapeutic paracentesis. Discharge Plan - Discharge Disposition Patient Disposition: /Home Health Service - Discharge Condition Condition: Stable - Discharge Order Discharge Orders: Discharge Order (Routine); Ordered 05/19/18 Ordered By: Renée Sandoval - Physicians Team Primary Care Provider: Laura Snell, Attending Provider: Renée Sandoval Other Providers: Lori Mayer MD
== END 2018-05-19 13:20 | disposition home health service (06) ==
LOC: NEDA 15:57 → NEPC 15:57 → NEPFCDU 20:19 → N05 05-16 16:24
PROVIDERS: ADMIT Family Medicine; ATTEND Family Medicine

== ENCOUNTER 2018-06-12 16:06 | Inpatient (IN) ==
[2018-06-12 17:43] LABS: Baso % (Auto) 0.7 % (0.0-2.0); Eos # (Auto) 0.1 th/mm3 (0.0-0.4); Hematocrit 21.9 % (39.0-51.0); Hemoglobin 7.4 gm/dL (13.0-17.0); Lymph # (Auto) 0.8 th/mm3 (1.0-4.8); Lymph % (Auto) 14.7 % (9.0-44.0); Mean Corpuscular HGB Conc 33.6 % (32.0-36.0); Mean Corpuscular Hemoglobin 37.5 pg (27.0-34.0); Mean Corpuscular Volume 111.6 fL (80.0-100.0); Mean Platelet Volume 8.8 fL (7.0-11.0); Mono # (Auto) 0.6 th/mm3 (0.0-0.9); Mono % (Auto) 10.5 % (0.0-8.0); Neut # (Auto) 3.8 th/mm3 (1.8-7.7); Neut % (Auto) 72.1 % (16.0-70.0); Platelet Count 104 th/mm3 (150-450); Red Blood Count 1.97 mil/mm3 (4.50-5.90); Red Cell Distribution Width 14.4 % (11.6-17.2); White Blood Count 5.3 th/mm3 (4.0-11.0)
[2018-06-12 17:57] LABS: Activated Partial Thrombo Time 40.7 sec (24.3-30.1); Prothrombin Time 20.4 sec (9.8-11.6)
--- NOTE | 2018-06-12 17:57 | CT ---
EXAM DATE: 06/12/2018 5:05 PM EDT AGE/SEX: 63 years / Male INDICATIONS: General weakness for two days. CLINICAL DATA: This is the patient's initial encounter. Patient reports that signs and symptoms have been present for 1 day and indicates a pain score of 7/10. MEDICAL/SURGICAL HISTORY: Carcinoma, prostatic. Hepatitis C. Cirrhosis. None. RADIATION DOSE: 56.35 CTDI (mGy) COMPARISON: [facility] [place], CT HEAD W/O CONTRAST, 05/14/2018. . TECHNIQUE: CT of the head without contrast. Using automated exposure control and adjustment of the mA and/or kV according to patient size, radiation dose was kept as low as reasonably achievable to ob tain optimal diagnostic quality images. DICOM format image data is available electronically for revi ew and comparison. FINDINGS: Cerebrum: The ventricles are normal for age. No evidence of midline shift, mass lesion, hemorrhage or acute infarction. No extraaxial fluid collections are seen. Posterior Fossa: The cerebellum and brainstem are intact. The 4th ventricle is midline. The cerebe llopontine angle is unremarkable. Extracranial: The visualized portion of the orbits is intact. Skull: The calvaria is intact. No evidence of skull fracture. CONCLUSION: 1. Unremarkable and stable CT scan of the brain compared to the prior examination. . Electronically signed by: Kendell Pandey MD 06/12/2018 5:55 PM EDT
[2018-06-12 18:09] LABS: Albumin 1.7 g/dL (3.4-5.0); Anion Gap 10 meq/L (5-15); Aspartate Aminotransferase 138 U/L (15-37); Blood Urea Nitrogen 40 mg/dL (7-18); Carbon Dioxide 24.2 meq/L (21.0-32.0); Chloride 105 meq/L (98-107); Glomerular Filtration Rate 24 mL/min (>89); Glucose,Random 156 mg/dL (74-106); Potassium 4.8 meq/L (3.5-5.1); Sodium 139 meq/L (136-145)
[2018-06-12 18:17] LABS: Ovalocytes 1+; Platelet Morphology Normal (Normal); Spherocytes 1+
[2018-06-12 18:20] LABS: Alanine Aminotransferase 66 U/L (12-78); Alkaline Phosphatase 125 U/L (45-117); Total Protein 8.2 g/dL (6.4-8.2); Troponin I 0.03 ng/mL (0.02-0.05)
--- NOTE | 2018-06-12 18:47 | XR ---
EXAM DATE: 06/12/2018 4:57 PM EDT AGE/SEX: 63 years / Male INDICATIONS: Cough CLINICAL DATA: This is the patient's initial encounter. Patient reports that signs and symptoms have been present for 1 day and indicates a pain score of Nonresponsive. MEDICAL/SURGICAL HISTORY: . Carcinoma, prostatic. Hepatitis C. Cirrhosis. None. COMPARISON: C, CHEST 1V SINGLE AP, 05/14/2018. . FINDINGS: Stable elevation the right hemidiaphragm. The lungs are clear without focal infiltrate. The heart is stable in size. CONCLUSION: No infiltrates seen. Electronically signed by: Jerman Esparza MD 06/12/2018 6:45 PM EDT
[2018-06-12] MEDS ORDERED: Sodium Chlor 0.9% Inj 500 ML IV.SIG SCH (19:00)
--- NOTE | 2018-06-12 19:18 | ED ---
HPI General Chief Complaint: Altered Mental Status Stated Complaint: AFIB/Lithargic Time Seen by Provider: 06/12/18 16:40 Source: patient Mode of arrival: ambulatory Limitations: no limitations History of Present Illness HPI narrative: Patient is a 63-year-old male that presents for the evaluation of altered mental status. The patient's is present in the room and provides most of the history since the patient is unable. The patient's states that Tuesday the patient began to act more fatigued and did not want to eat. The patient's states that he began sleeping more and he was too weak to perform his usual activities. The patient's states that he has not eaten a full meal since Tuesday and she states that the patient states that he is not hungry. Before Tuesday the states that the patient was acting his baseline. The patient has a past medical history significant for liver cirrhosis. The patient's reports that he vomited yesterday but she has not noticed that the patient has had diarrhea or constipation. She states that the patient's abdomen appears distended. At this time the patient denies any pain. Review of symptoms is unable to be elicited from the patient. The states that the patient has not complained of shortness of breath or chest pain. Patient does appear to have more swelling per . Per patient did have paracentesis on his last admission. He had a blood transfusion in March. No active bleeding as far as the and patient are aware. Related Data Previous Rx's Medication Instructions Recorded cholestyramine-aspartame 2 g PO BID #60 g 05/19/18 furosemide 40 mg PO DAILY #30 tab 05/19/18 lactulose 30 ml PO QID 30 Days #3600 ml 05/19/18 pantoprazole [Protonix] 40 mg PO DAILY #30 tab 05/19/18 propranolol 10 mg PO TID #90 tab 05/19/18 rifaximin [Xifaxan] 550 mg PO BID #60 tab 05/19/18 spironolactone 100 mg PO DAILY #30 tab 05/19/18 tamsulosin 0.4 mg PO DAILY #30 tab 05/19/18 Allergies Allergy/AdvReac Type Severity Reaction Status Date / Time chlorhexidine Allergy Mild Rash Verified 06/12/18 16:45 Review of Systems ROS: all other systems reviewed are negative [facility] Medical History Medical History Cirrhosis (Acute) Hepatitis C (Acute) Prostate cancer (Acute) Psoriasis (Acute) Surgical History Surgical History H/O prostate biopsy (Acute) Family History Family History Mother Family history of acute myocardial infarction Social History Social History Substance History: No History of Abuse Second Hand Smoke Exposure: No Smoking Status: Former smoker Tobacco Type: Cigarettes How Often Do You Have a Drink Containing Alcohol: Never Recent Travel in [facility] within the Last 8 Weeks: No Recent Out of Country Travel within the Last 8 Weeks: No Immunization History Tetanus Immunization: >5 Years Exam Narrative Exam Narrative: GENERAL: Well appearing SKIN: Focused skin assessment warm/dry. HEAD: Atraumatic. Normocephalic. EYES: Pupils equal and round. No scleral icterus. No injection or drainage. ENT: No nasal bleeding or discharge. Mucous membranes pink and moist. Tongue is midline. No uvula deviation. NECK: Trachea midline. No JVD. CARDIOVASCULAR: Regular rate and rhythm. No murmur appreciated. RESPIRATORY: No accessory muscle use. Clear to auscultation. Breath sounds equal bilaterally. GASTROINTESTINAL: Abdomen soft, non-tender, distended what appears to be fluid waves. Hepatic and splenic margins not palpable. MUSCULOSKELETAL: No obvious deformities. No clubbing. No cyanosis. No edema. Full range of motion of the upper and lower extremities bilaterally. 2+ pulses bilaterally. NEUROLOGICAL: Awake and alert. No obvious cranial nerve deficits. Motor grossly within normal limits. Normal speech. PSYCHIATRIC: Appropriate mood and affect; insight and judgment normal. Course Initial Documented Vital Signs Temperature 97.8 F 06/12/18 16:18 Pulse Rate 70 06/12/18 16:18 Respiratory Rate 17 06/12/18 16:18 Blood Pressure 133/71 06/12/18 16:18 Pulse Oximetry 97 06/12/18 16:18 Last Documented Vital Signs Temperature 97.8 F 06/12/18 16:18 Pulse Rate 64 06/12/18 19:14 Respiratory Rate 20 06/12/18 19:10 Blood Pressure 115/64 06/12/18 19:14 Pulse Oximetry 98 06/12/18 19:10 Procedures Hemaprompt Stool Procedural Steps Taken: specimen placed in appropriate test area, developer placed on specimen and control areas and controls appropriately positive and negative Hemaprompt Stool Result: negative Medical Decision Making MDM Narrative Medical decision making narrative: 63-year-old male the presents to the ED for evaluation of altered mental status. Patient was properly examined and was found to have signs and symptoms concerning for hepatic encephalopathy. Labs and imaging were ordered. Labs and imaging show what appears to be likely hepatic encephalopathy with ascites as well as what appears to be kidney injury which appears to be acute as well as anemia. No active bleeding at this time that we can see. Hemoccult was done and was negative. At this time case was discussed with my attending who agrees with admission. He recommends that we give 1 bolus of blood. This was ordered. Type and screen ordered. Case discussed with Dr. Ramirez who agrees to admission. Case discussed with the patient and the family and the but agree with admission plan. Medical Screen Exam Complete: Yes Emergency Medical Condition: Yes Differential Diagnosis Differential Diagnosis: GI bleed versus anemia versus cirrhosis versus kidney failure versus hepatic encephalopathy Medical Records Medical records reviewed: Yes I reviewed the patient's medical records. Lab Data Lab results reviewed: Yes I reviewed the patient's lab results. Lab results narrative: sheridan elevated Result diagrams: 06/12/18 17:00 06/12/18 17:00 Lab Results 06/12/18 06/12/18 06/12/18 Range/Units 17:00 17:00 17:00 WBC 5.3 (4.0-11.0) th/mm3 RBC 1.97 L (4.50-5.90) mil/mm3 Hgb 7.4 L (13.0-17.0) gm/dL Hct 21.9 L (39.0-51.0) % MCV 111.6 H (80.0-100.0) fL MCH 37.5 H (27.0-34.0) pg MCHC 33.6 (32.0-36.0) % RDW 14.4 (11.6-17.2) % Plt Count 104 L D (150-450) th/mm3 MPV 8.8 (7.0-11.0) fL Prelim Diff (Auto) Slide review pending Neut % (Auto) 72.1 H (16.0-70.0) % Lymph % (Auto) 14.7 (9.0-44.0) % [place] % (Auto) 10.5 H (0.0-8.0) % Eos % (Auto) 2.0 (0.0-4.0) % Baso % (Auto) 0.7 (0.0-2.0) % Neut # (Auto) 3.8 (1.8-7.7) th/mm3 Lymph # (Auto) 0.8 L (1.0-4.8) th/mm3 [place] # (Auto) 0.6 (0.0-0.9) th/mm3 Eos # (Auto) 0.1 (0.0-0.4) th/mm3 Baso # (Auto) 0.0 (0.0-0.2) th/mm3 WBC Differential . Diff Scan Auto diff confirmed Differential Comment . Platelet Estimate Low L (Normal) Platelet Morphology Normal (Normal) Spherocytes 1+ H (None) Ovalocytes 1+ H (None) PT 20.4 H (9.8-11.6) sec INR 2.0 Ratio APTT 40.7 H (24.3-30.1) sec Sodium 139 (136-145) meq/L Potassium 4.8 (3.5-5.1) meq/L Chloride 105 (98-107) meq/L Carbon Dioxide 24.2 (21.0-32.0) meq/L Anion Gap 10 (5-15) meq/L BUN 40 H (7-18) mg/dL Creatinine 3.20 H (0.60-1.30) mg/dL Estimated GFR 24 L (>89) mL/min Random Glucose 156 H (74-106) mg/dL Calcium 9.0 (8.5-10.1) mg/dL Total Bilirubin 9.6 H (0.2-1.0) mg/dL AST 138 H (15-37) U/L ALT 66 (12-78) U/L Alkaline Phosphatase 125 H (45-117) U/L Ammonia (11-32) mcmol/L Troponin I 0.03 (0.02-0.05) ng/mL Total Protein 8.2 (6.4-8.2) g/dL Albumin 1.7 L (3.4-5.0) g/dL TSH 1.800 (0.358-3.740) uIU/mL 06/12/18 Range/Units 17:00 WBC (4.0-11.0) th/mm3 RBC (4.50-5.90) mil/mm3 Hgb (13.0-17.0) gm/dL Hct (39.0-51.0) % MCV (80.0-100.0) fL MCH (27.0-34.0) pg MCHC (32.0-36.0) % RDW (11.6-17.2) % Plt Count (150-450) th/mm3 MPV (7.0-11.0) fL Prelim Diff (Auto) Neut % (Auto) (16.0-70.0) % Lymph % (Auto) (9.0-44.0) % [place] % (Auto) (0.0-8.0) % Eos % (Auto) (0.0-4.0) % Baso % (Auto) (0.0-2.0) % Neut # (Auto) (1.8-7.7) th/mm3 Lymph # (Auto) (1.0-4.8) th/mm3 [place] # (Auto) (0.0-0.9) th/mm3 Eos # (Auto) (0.0-0.4) th/mm3 Baso # (Auto) (0.0-0.2) th/mm3 WBC Differential Diff Scan Differential Comment Platelet Estimate (Normal) Platelet Morphology (Normal) Spherocytes (None) Ovalocytes (None) PT (9.8-11.6) sec INR Ratio APTT (24.3-30.1) sec Sodium (136-145) meq/L Potassium (3.5-5.1) meq/L Chloride (98-107) meq/L Carbon Dioxide (21.0-32.0) meq/L Anion Gap (5-15) meq/L BUN (7-18) mg/dL Creatinine (0.60-1.30) mg/dL Estimated GFR (>89) mL/min Random Glucose (74-106) mg/dL Calcium (8.5-10.1) mg/dL Total Bilirubin (0.2-1.0) mg/dL AST (15-37) U/L ALT (12-78) U/L Alkaline Phosphatase (45-117) U/L Ammonia 57 H (11-32) mcmol/L Troponin I (0.02-0.05) ng/mL Total Protein (6.4-8.2) g/dL Albumin (3.4-5.0) g/dL TSH (0.358-3.740) uIU/mL Imaging Data Attestation: I personally reviewed and interpreted this imaging study as follows : Radiologist's impression: Chest X-Ray 06/12/18 16:57 CONCLUSION: No infiltrates seen. Head CT 06/12/18 16:57 CONCLUSION: 1. Unremarkable and stable CT scan of the brain compared to the prior examination. . Discharge Plan Discharge Disposition Patient Disposition: 30 Still Patient Discharge Details Diagnosis: Acute hepatic encephalopathy, Acute kidney injury, Anemia Physicians Team ED Provider: Jose Amezcua ED Midlevel Provider: Pranay Gambino Primary Care Provider: Laura Snell, Attending Provider: Leah Ramirez Discharge Interventions Interventions: Vital Signs Last Done: 06/12/18 19:14 Status ED Status: Admitted Patient
--- NOTE | 2018-06-12 19:57 | P.HP ---
History of Present Illness Service: [facility] Primary Care Physician: Laura Snell History of Present Illness: 63-year-old male with a past medical history significant for history of prostate cancer, hepatitis C, cirrhosis and atrial fibrillation not on systemic anticoagulation presents to the emergency department for the evaluation of altered mental status and increasing weakness. The patient's reports that for the past 2-3 days he has been fatigued. She reports increasing confusion and states he is "talking nonsense." She states he has been complaining of dizziness and being cold. She also reports an associated anorexia and states she cannot get the patient to eat or drink. He is fluid restricted to 1 L/day however she states he has not even been drinking that much. He has not taken his medications for the past 2-3 days. The patient endorses abdominal pain of breath. No chest pain or shortness of breath. No fever/chills. No nausea/ vomiting/diarrhea. No lateralizing signs/symptoms. Inpatient Certification: I certify that the inpatient services were ordered in accordance with Medicare regulations governing the order. This includes certification that hospital inpatient services are reasonable and necessary and in the case of services not specified as inpatient-only under 42 CFR 419.22(n), that they are appropriately provided as inpatient services in accordance to with the 2-midnight benchmark under 43 CFR 412.3(e) Estimated Total Length of Stay (Days): 2 Plans for Post Hospital Care: Not yet determined Review of Systems All other systems reviewed negative except as stated [facility] - History History Provided By: Family Member - Medical History Medical History: Medical History (Last Updated 06/12/18 @ 19:51 by Leah Ramirez MD) Atrial fibrillation Cirrhosis Hepatitis C Prostate cancer Psoriasis - Surgical History Surgical History: Surgical History (Last Reviewed 06/12/18 @ 19:51 by Leah Ramirez MD) H/O prostate biopsy - Family History Family History: Family History (Last Reviewed 06/12/18 @ 19:51 by Leah Ramirez MD) Mother Family history of acute myocardial infarction - Tobacco History Second Hand Smoke Exposure: No Tobacco Use In Past 30 Days: No Smoking Status: Former smoker Tobacco Type: Cigarettes - Alcohol History How Often Do You Have a Drink Containing Alcohol: Never - Substance Use History Substance History: No History of Abuse - Travel History Recent Travel in the [place] Within the Last 8 Weeks: No Recent Travel Out of the Country Within the Last 8 Weeks: No - Immunization History Tetanus Immunization: >5 Years Medications and Allergies Allergies Allergy/AdvReac Type Severity Reaction Status Date / Time chlorhexidine Allergy Mild Rash Verified 06/12/18 16:45 Exam Vital signs: Vital Signs 06/12/18 16:18 06/12/18 16:44 06/12/18 16:59 Temperature 97.8 F Pulse Rate 70 66 64 Respiratory Rate 17 18 Blood Pressure 133/71 116/66 Pulse Oximetry 97 98 06/12/18 17:00 06/12/18 19:10 06/12/18 19:14 Temperature Pulse Rate 68 64 Respiratory Rate 20 Blood Pressure 113/58 L 115/64 Pulse Oximetry 98 98 Intake & Output 06/12/18 06/12/18 06/13/18 06:59 18:59 06:59 Weight 131.088 kg Narrative: Gen.: No acute distress Head: Normocephalic. Atraumatic. EENT: Pupils equal round and reactive to light. Nose without drainage. Airway intact. Throat without injection. Cardiovascular: Regular rate. Irregularly irregular rhythm. No murmurs, rubs or gallops. Respiratory: Lungs clear to auscultation bilaterally. No wheezes or rhonchi. Abdomen: Soft, moderately tender to palpation, distended. No peritoneal signs. Musculoskeletal: No gross deformities. No edema. Skin: No obvious rashes or erythema. Neuro: Sensory and motor grossly intact. Cranial nerves II through XII grossly intact. Alert and oriented x3. Results - Labs CBC & Chem 7: 06/12/18 17:00 06/12/18 17:00 Labs: Laboratory Results - last 24 hr 06/12/18 06/12/18 06/12/18 17:00 17:00 17:00 WBC 5.3 RBC 1.97 L Hgb 7.4 L Hct 21.9 L MCV 111.6 H MCH 37.5 H MCHC 33.6 RDW 14.4 Plt Count 104 L D MPV 8.8 Prelim Diff (Auto) Slide review pending Neut % (Auto) 72.1 H Lymph % (Auto) 14.7 [place] % (Auto) 10.5 H Eos % (Auto) 2.0 Baso % (Auto) 0.7 Neut # (Auto) 3.8 Lymph # (Auto) 0.8 L [place] # (Auto) 0.6 Eos # (Auto) 0.1 Baso # (Auto) 0.0 WBC Differential . Diff Scan Auto diff confirmed Differential Comment . Platelet Estimate Low L Platelet Morphology Normal Spherocytes 1+ H Ovalocytes 1+ H PT 20.4 H INR 2.0 APTT 40.7 H Sodium 139 Potassium 4.8 Chloride 105 Carbon Dioxide 24.2 Anion Gap 10 BUN 40 H Creatinine 3.20 H Estimated GFR 24 L Random Glucose 156 H Calcium 9.0 Total Bilirubin 9.6 H AST 138 H ALT 66 Alkaline Phosphatase 125 H Ammonia Troponin I 0.03 Total Protein 8.2 Albumin 1.7 L TSH 1.800 MTS Gel Crossmatch 06/12/18 06/12/18 17:00 17:00 WBC RBC Hgb Hct MCV MCH MCHC RDW Plt Count MPV Prelim Diff (Auto) Neut % (Auto) Lymph % (Auto) [place] % (Auto) Eos % (Auto) Baso % (Auto) Neut # (Auto) Lymph # (Auto) [place] # (Auto) Eos # (Auto) Baso # (Auto) WBC Differential Diff Scan Differential Comment Platelet Estimate Platelet Morphology Spherocytes Ovalocytes PT INR APTT Sodium Potassium Chloride Carbon Dioxide Anion Gap BUN Creatinine Estimated GFR Random Glucose Calcium Total Bilirubin AST ALT Alkaline Phosphatase Ammonia 57 H Troponin I Total Protein Albumin TSH MTS Gel Crossmatch See Detail - Imaging Impressions Chest X-Ray 06/12/18 16:57 CONCLUSION: No infiltrates seen. Head CT 06/12/18 16:57 CONCLUSION: 1. Unremarkable and stable CT scan of the brain compared to the prior examination. . Caprini VTE Risk Assessment Caprini VTE Risk Assessment: Moderate/High Risk (score >= 2) Caprini Risk Assessment Model: Point Value = 1 Point Value = 2 Point Value = 3 Point Value = 5 Age 41-60 Minor surgery BMI > 25 kg/m2 Swollen legs Varicose veins or History of unexplained or recurrent spontaneous Oral contraceptives or hormone replacement Sepsis (< 1 month) Serious lung disease, including pneumonia (< 1 month) Abnormal pulmonary function Acute myocardial infarction Congestive heart failure (< 1 month) History of inflammatory bowel disease Medical patient at bed rest Age 61-74 Arthroscopic surgery Major open surgery (> 45 min) Laparoscopic surgery (> 45 min) Malignancy Confined to bed (> 72 hours) Immobilizing plaster cast Central venous access Age >= 75 History of VTE Family history of VTE Factor V Leiden Prothrombin [id number] Lupus anticoagulant Anticardiolipin antibodies Elevated serum homocysteine Heparin-induced thrombocytopenia Other congenital or acquired thrombophilia Stroke (< 1 month) Elective arthroplasty Hip, pelvis, or leg fracture Acute spinal cord injury (< 1 month) Prophylaxis Regimen: Total Risk Factor Score Risk Level Prophylaxis Regimen 0-1 Low Early ambulation 2 Moderate Order ONE of the following: *Sequential Compression Device (SCD) *Heparin 5000 units SQ BID 3-4 Higher Order ONE of the following medications: *Heparin 5000 units SQ TID *Enoxaparin/Lovenox 40 mg SQ daily (WT < 150 kg, CrCl > 30 mL/min) *Enoxaparin/Lovenox 30 mg SQ daily (WT < 150 kg, CrCl > 10-29 mL/min) *Enoxaparin/Lovenox 30 mg SQ BID (WT < 150 kg, CrCl > 30 mL/min) AND/OR *Sequential Compression Device (SCD) 5 or more Highest Order ONE of the following medications: *Heparin 5000 units SQ TID (Preferred with Epidurals) *Enoxaparin/Lovenox 40 mg SQ daily (WT < 150 kg, CrCl > 30 mL/min) *Enoxaparin/Lovenox 30 mg SQ daily (WT < 150 kg, CrCl > 10-29 mL/min) *Enoxaparin/Lovenox 30 mg SQ BID (WT < 150 kg, CrCl > 30 mL/min) AND *Sequential Compression Device (SCD) Assessment and Plan - Plan Assessment/plan: 1. Acute renal failure Creatinine 3.20, baseline from 1 month ago 1.22 Ultrasound pending Nephrology consulted, appreciate recommendations Avoiding aggressive IV fluid hydration given cirrhosis 2. Symptomatic anemia Hemoglobin 7.4 Transfuse 1 packed red blood cells Hemoccult negative in the emergency department 3. Hepatitis C/cirrhosis/ascites Abdominal ultrasound pending to evaluate for possible paracentesis Patient has an appointment scheduled with Dr. Mayer for further evaluation Continue home medications 4. Hyperammonemia/altered mental status Patient has not been taking his lactulose or rifaximin Resume home medications 5. Atrial fibrillation Rate controlled Monitor INR 2.0 Patient not on systemic anticoagulation FEN Renal diet Electrolytes: Monitor and replete as needed Holding pharmacologic anticoagulation for thrombocytopenia/anemia
[2018-06-12 20:07] LABS: Bacteria,Urine Many /hpf; Bilirubin,Urine Negative (Negative); Clarity,Urine Hazy (Clear); Color,Urine Amber (Yellw/Straw); Glucose,Urine (UA) Negative (Negative); Leukocyte Esterase,Urine Moderate (Negative); Mucus,Urine Few /lpf (Occasional); Nitrite,Urine Negative (Negative); Specific Gravity,Urine 1.011 (1.002-1.035); Squamous Epithelial Cell,Urine 1 /hpf (0-5); Urobilinogen,Urine 4 or Greater mg/dL (Less than 2)
[2018-06-12] MEDS: Cholestyramine Light 4 GM Packet PO SCH (23:13)
[2018-06-12] MEDS: rifAXIMin 550 MG Tablet PO SCH (23:13)
[2018-06-13] MEDS ORDERED: Influenza (Quadrivalent) Vaccine 0.5 ML Syringe IM ONE ×2 (01:00→10:00)
[2018-06-13] MEDS: Cholestyramine Light 4 GM Packet PO SCH ×2 (09:06→17:30)
[2018-06-13] MEDS: rifAXIMin 550 MG Tablet PO SCH ×2 (09:07→22:04)
[2018-06-13] MEDS: Propranolol 10 MG Tablet PO SCH ×2 (09:07→13:52)
[2018-06-13] MEDS: Furosemide 20 MG Tablet PO SCH ×2 (09:07→17:29)
[2018-06-13] MEDS: Spironolactone 50 MG Tablet PO SCH (09:08)
--- NOTE | 2018-06-13 09:15 | US ---
EXAM DATE: 06/13/2018 12:00 AM EDT AGE/SEX: 63 years / Male INDICATIONS: Ascites. CLINICAL DATA: This is the patient's subsequent encounter. Patient reports that signs and symptoms h ave been present for 1 month and indicates a pain score of 0/10. MEDICAL/SURGICAL HISTORY: . Atrial fibrillation. Cirrhosis. Hepatitis C. Prostate cancer. Psori asis. . Prostate biopsy. COMPARISON: [facility] [place]NAL/BLAD[place], 06/13/2018. . FINDINGS: Masses: None Fluid Collections: A moderate amount of ascitic fluid is present in all 4 quadrants. Other: None. CONCLUSION: 1. Moderate amount of ascitic fluid. Electronically signed by: Galo Villarreal MD 06/13/2018 9:14 AM EDT
--- NOTE | 2018-06-13 09:19 | US ---
EXAM DATE: 06/13/2018 12:00 AM EDT AGE/SEX: 63 years / Male INDICATIONS: Increased BUN/Creat nine. CLINICAL DATA: This is the patient's subsequent encounter. Patient reports that signs and symptoms h ave been present for 1 day and indicates a pain score of 0/10. MEDICAL/SURGICAL HISTORY: . Atrial fibrillation. Cirrhosis. Hepatitis C. Prostate cancer. Psori asis. . Prostate biopsy. COMPARISON: [facility], US PARACENTESIS ABD W/IMAGE, 05/17/2018. . MEASUREMENTS: Right Kidney:__11.2 x 4.8 x 4.7 cm Left Kidney:__. Not visualized. FINDINGS: Right Kidney: Increased echotexture. No mass or hydronephrosis. Left Kidney: Not visualized. Bladder: Within normal limits given the degree of distension. Other: There is evidence of moderate ascites in the abdomen. CONCLUSION: 1. No evidence of hydronephrosis. 2. 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 3. There is evidence of ascites. Electronically signed by: Kendell Pandey MD 06/13/2018 9:17 AM EDT
[2018-06-13 09:48] LABS: Baso % (Auto) 0.7 % (0.0-2.0); Eos # (Auto) 0.1 th/mm3 (0.0-0.4); Eos % (Auto) 2.4 % (0.0-4.0); Hemoglobin 7.7 gm/dL (13.0-17.0); Lymph # (Auto) 0.8 th/mm3 (1.0-4.8); Lymph % (Auto) 16.5 % (9.0-44.0); Mean Corpuscular HGB Conc 33.7 % (32.0-36.0); Mean Corpuscular Volume 106.8 fL (80.0-100.0); Mean Platelet Volume 8.9 fL (7.0-11.0); Mono # (Auto) 0.6 th/mm3 (0.0-0.9); Mono % (Auto) 11.6 % (0.0-8.0); Neut # (Auto) 3.5 th/mm3 (1.8-7.7); Neut % (Auto) 68.8 % (16.0-70.0); Platelet Count 80 th/mm3 (150-450); Red Blood Count 2.15 mil/mm3 (4.50-5.90); Red Cell Distribution Width 17.7 % (11.6-17.2); White Blood Count 5.1 th/mm3 (4.0-11.0)
[2018-06-13 09:58] LABS: Alanine Aminotransferase 62 U/L (12-78)
[2018-06-13 10:00] LABS: Alkaline Phosphatase 116 U/L (45-117); Total Protein 7.7 g/dL (6.4-8.2)
[2018-06-13 10:05] LABS: Albumin 1.5 g/dL (3.4-5.0); Anion Gap 9 meq/L (5-15); Aspartate Aminotransferase 131 U/L (15-37); Blood Urea Nitrogen 37 mg/dL (7-18); Chloride 106 meq/L (98-107); Glomerular Filtration Rate 27 mL/min (>89); Glucose,Random 95 mg/dL (74-106); Sodium 140 meq/L (136-145)
[2018-06-13 11:40] LABS: Platelet Morphology Normal (Normal)
--- NOTE | 2018-06-13 15:19 | P.PN ---
Subjective Interval history: Nursing denies any deterioration since last night. is at the bedside with questions. Patient himself says he feels he can feel a lot better. says that the patient has demonstrated somnolence and drowsiness over the past month. Physical Exam Vital signs: Vital Signs 06/12/18 16:18 06/12/18 16:44 06/12/18 16:59 Temperature 97.8 F Pulse Rate 70 66 64 Respiratory Rate 17 18 Blood Pressure 133/71 116/66 Pulse Oximetry 97 98 06/12/18 17:00 06/12/18 19:10 06/12/18 19:14 Temperature Pulse Rate 68 64 Respiratory Rate 20 Blood Pressure 113/58 L 115/64 Pulse Oximetry 98 98 06/12/18 20:10 06/12/18 21:15 06/12/18 23:28 Temperature 97.7 F 97.8 F Pulse Rate 70 67 71 Respiratory Rate 20 20 18 Blood Pressure 105/71 120/65 126/62 Pulse Oximetry 100 99 06/13/18 00:00 06/13/18 04:00 06/13/18 05:25 Temperature 98.1 F 98 F Pulse Rate 63 74 70 Respiratory Rate 18 18 Blood Pressure 111/63 125/70 Pulse Oximetry 98 100 06/13/18 08:00 06/13/18 09:00 06/13/18 09:04 Temperature 98.4 F Pulse Rate 82 73 Respiratory Rate 17 Blood Pressure 134/59 L Pulse Oximetry 99 96 99 06/13/18 12:00 Temperature 97.9 F Pulse Rate 67 Respiratory Rate 16 Blood Pressure 113/67 Pulse Oximetry 96 Intake & Output 06/12/18 06/13/18 06/13/18 18:59 06:59 18:59 Intake Total 640 / 640 Output Total 350 / 350 Balance 290 / 290 Weight 131.088 kg Intake: Oral 240 / 240 Intake (Blood Product) Amt 400 / 400 Rbc As-3 Leukoreduced Unit 400 / 400 [id number] Output: Urine 350 / 350 Other: # Incontinent Voids 3 Date of Last Bowel Movement 06/12/18 06/12/18 Narrative: Abdomen shows mild distention, soft, nontender Patient appears somnolent, but when prompted to speak Has slowed speech but not slurred, no facial droop 3/5 proximal upper extremity strength bilaterally No lower extremity edema - Urinary Catheter Management Straight Cath placed during this visit: yes Reason for continuing: Not indwelling catheter Insertion date: 06/12/18 Insertion time: 19:10 Results - Labs CBC & Chem 7: 06/13/18 08:36 06/13/18 08:36 Laboratory Results - last 24 hr 06/12/18 06/12/18 06/12/18 17:00 17:00 17:00 WBC 5.3 RBC 1.97 L Hgb 7.4 L Hct 21.9 L MCV 111.6 H MCH 37.5 H MCHC 33.6 RDW 14.4 Plt Count 104 L D MPV 8.8 Prelim Diff (Auto) Slide review pending Neut % (Auto) 72.1 H Lymph % (Auto) 14.7 [place] % (Auto) 10.5 H Eos % (Auto) 2.0 Baso % (Auto) 0.7 Neut # (Auto) 3.8 Lymph # (Auto) 0.8 L [place] # (Auto) 0.6 Eos # (Auto) 0.1 Baso # (Auto) 0.0 WBC Differential . Diff Scan Auto diff confirmed Differential Comment . Platelet Estimate Low L Platelet Morphology Normal Spherocytes 1+ H Ovalocytes 1+ H PT 20.4 H INR 2.0 APTT 40.7 H Sodium 139 Potassium 4.8 Chloride 105 Carbon Dioxide 24.2 Anion Gap 10 BUN 40 H Creatinine 3.20 H Estimated GFR 24 L Random Glucose 156 H Calcium 9.0 Total Bilirubin 9.6 H AST 138 H ALT 66 Alkaline Phosphatase 125 H Ammonia Troponin I 0.03 Total Protein 8.2 Albumin 1.7 L TSH 1.800 Urine Color Urine Clarity Urine pH Ur Specific [place] Urine Protein Urine Glucose (UA) Urine Ketones Urine Occult Blood Urine Nitrate Urine Bilirubin Urine Urobilinogen Ur Leukocyte Esterase Urine RBC Urine WBC Urine WBC Clumps Ur Squamous Epith Cells Urine Bacteria Urine Mucus Micro UA Comment Ur Microscopic Review Urine Culture Comments Blood Type Antibody Screen MTS Gel Crossmatch 06/12/18 06/12/18 06/12/18 17:00 17:00 19:05 WBC RBC Hgb Hct MCV MCH MCHC RDW Plt Count MPV Prelim Diff (Auto) Neut % (Auto) Lymph % (Auto) [place] % (Auto) Eos % (Auto) Baso % (Auto) Neut # (Auto) Lymph # (Auto) [place] # (Auto) Eos # (Auto) Baso # (Auto) WBC Differential Diff Scan Differential Comment Platelet Estimate Platelet Morphology Spherocytes Ovalocytes PT INR APTT Sodium Potassium Chloride Carbon Dioxide Anion Gap BUN Creatinine Estimated GFR Random Glucose Calcium Total Bilirubin AST ALT Alkaline Phosphatase Ammonia 57 H Troponin I Total Protein Albumin TSH Urine Color [place] Urine Clarity Hazy H Urine pH 5.0 Ur Specific [place] 1.011 Urine Protein Negative Urine Glucose (UA) Negative Urine Ketones Negative Urine Occult Blood Small H Urine Nitrate Negative Urine Bilirubin Negative Urine Urobilinogen 4 or greater Ur Leukocyte Esterase Moderate H Urine RBC 2 Urine WBC 42 H Urine WBC Clumps Few H Ur Squamous Epith Cells 1 Urine Bacteria Many H Urine Mucus Few H Micro UA Comment Culture indicated Ur Microscopic Review Not Reportable Urine Culture Comments Culture indicated Blood Type O Positive Antibody Screen Negative MTS Gel Crossmatch See Detail 06/13/18 06/13/18 08:36 08:36 WBC 5.1 RBC 2.15 L Hgb 7.7 L Hct 23.0 L MCV 106.8 H D MCH 36.0 H MCHC 33.7 RDW 17.7 H D Plt Count 80 L MPV 8.9 Prelim Diff (Auto) Slide review pending Neut % (Auto) 68.8 Lymph % (Auto) 16.5 [place] % (Auto) 11.6 H Eos % (Auto) 2.4 Baso % (Auto) 0.7 Neut # (Auto) 3.5 Lymph # (Auto) 0.8 L [place] # (Auto) 0.6 Eos # (Auto) 0.1 Baso # (Auto) 0.0 WBC Differential . Diff Scan Auto diff confirmed Differential Comment . Platelet Estimate Low L Platelet Morphology Normal Spherocytes Ovalocytes PT INR APTT Sodium 140 Potassium 5.0 Chloride 106 Carbon Dioxide 25.0 Anion Gap 9 BUN 37 H Creatinine 2.92 H Estimated GFR 27 L Random Glucose 95 Calcium 9.0 Total Bilirubin 9.6 H AST 131 H ALT 62 Alkaline Phosphatase 116 Ammonia Troponin I Total Protein 7.7 Albumin 1.5 L TSH Urine Color Urine Clarity Urine pH Ur Specific [place] Urine Protein Urine Glucose (UA) Urine Ketones Urine Occult Blood Urine Nitrate Urine Bilirubin Urine Urobilinogen Ur Leukocyte Esterase Urine RBC Urine WBC Urine WBC Clumps Ur Squamous Epith Cells Urine Bacteria Urine Mucus Micro UA Comment Ur Microscopic Review Urine Culture Comments Blood Type Antibody Screen MTS Gel Crossmatch Microbiology 06/12/18 19:05 Clean Catch Urine Urine Culture - Preliminary gram negative rods - Imaging Impressions Chest X-Ray 06/12/18 16:57 CONCLUSION: No infiltrates seen. Head CT 06/12/18 16:57 CONCLUSION: 1. Unremarkable and stable CT scan of the brain compared to the prior examination. . Abdomen Ultrasound 06/13/18 00:00 CONCLUSION: 1. Moderate amount of ascitic fluid. Abdomen/Bladder Ultrasound 06/13/18 00:00 CONCLUSION: 1. No evidence of hydronephrosis. 2. There is some increased echogenicity of the renal parenchyma of the right kidney suggestive of chronic medical renal disease. 3. There is evidence of ascites. Assessment and Plan - Plan 63-year-old black male admitted for acute renal failure, metabolic encephalopathy. Metabolic encephalopathy Slowed mentation is evident, likely secondary to hepatic failure and azotemia Continue treating underlying problems of hepatic failure and acute renal failure Check vitamin B12 level, TSH within normal limits -Start treatment with zinc, continue lactulose and rifaximin -If no improvement in mentation with no obvious source is found otherwise with correction of underlying factors, then proceed with CT head -will stop propranolol given [employer] permeability, and start instead carvedilol Acute renal failure -Likely secondary to dehydration 2/2 lactulose and/or third spacing with cirrhosis -Improving, continue IVF -bmp in AM generalized weakness -Likely multifactorial including metabolic encephalopathy element Check CK level, magnesium, phosphorus, vitamin B12 PT/OT/ST Symptomatic anemia -likely anemia of chronic dx, stable h/h s/p transfusion Hepatitis C/cirrhosis/ascites/hyperbilirubinemia -We will see if IR can perform paracentesis given an INR of 2.0 -Increase Questran to every 8 hours for pruritus -switching from propranolol to Coreg given somnolence presentation Atrial fibrillation Rate controlled INR 2.0 Patient not on systemic anticoagulation
[2018-06-13 16:15] LABS: Magnesium 2.6 mg/dL (1.5-2.5); Phosphorus 3.9 mg/dL (2.5-4.9)
[2018-06-14] MEDS: Cholestyramine Light 4 GM Packet PO SCH ×3 (09:58→17:31)
[2018-06-14] MEDS: Furosemide 20 MG Tablet PO SCH ×2 (09:59→18:19)
[2018-06-14] MEDS: Spironolactone 50 MG Tablet PO SCH (09:59)
[2018-06-14] MEDS: rifAXIMin 550 MG Tablet PO SCH ×2 (09:59→20:36)
[2018-06-14] MEDS ORDERED: Phytonadione Inj 10 MG/ML Vial SQ ONE (11:00)
[2018-06-14 11:10] LABS: INR 2.1 Ratio; Prothrombin Time 21.3 sec (9.8-11.6)
[2018-06-14 11:23] LABS: Albumin 1.5 g/dL (3.4-5.0); Anion Gap 8 meq/L (5-15); Aspartate Aminotransferase 121 U/L (15-37); Blood Urea Nitrogen 35 mg/dL (7-18); Calcium 9.5 mg/dL (8.5-10.1); Carbon Dioxide 24.3 meq/L (21.0-32.0); Chloride 107 meq/L (98-107); Glomerular Filtration Rate 29 mL/min (>89); Glucose,Random 119 mg/dL (74-106); Potassium 4.6 meq/L (3.5-5.1); Sodium 139 meq/L (136-145)
[2018-06-14 11:24] LABS: Alanine Aminotransferase 64 U/L (12-78)
[2018-06-14 11:26] LABS: Alkaline Phosphatase 112 U/L (45-117); Total Protein 8.1 g/dL (6.4-8.2)
--- NOTE | 2018-06-14 14:42 | P.CONNP ---
History of Present Illness Service: Nephrology Consult date: 06/14/18 Requesting Physician: Ryan Bobo Reason for Consult: Acute renal failure Primary Care Provider: Laura Snell History of Present Illness: 63-year-old -[place] male with cirrhosis of the liver, hepatitis C, encephalopathy who is feeling worse tired lethargic and and altered mental status, creatinine around 1.07 in March now came in with 2.92 and with hydration 2.69, patient is encephalopathy with high ammonia level high total bilirubin level and jaundice. Patient is passing some urine which is dark colored. Review of Systems unobtainable due to mental status PMFSH - History History Provided By: Significant Other - Medical History Medical History: Medical History (Last Reviewed 06/14/18 @ 14:37 by Tati Whittington MD) Atrial fibrillation Cirrhosis Hepatitis C Prostate cancer Psoriasis - Surgical History Surgical History: Surgical History (Last Reviewed 06/14/18 @ 14:37 by Tati Whittington MD) H/O prostate biopsy - Family History Family History: Family History (Last Reviewed 06/14/18 @ 14:37 by Tati Whittington MD) Mother Family history of acute myocardial infarction - Social History I have reviewed the patient's Social History: Yes - Tobacco History Second Hand Smoke Exposure: No Tobacco Use In Past 30 Days: No Smoking Status: Former smoker Tobacco Type: Cigarettes - Alcohol History How Often Do You Have a Drink Containing Alcohol: Never - Substance Use History Substance History: No History of Abuse - Travel History Recent Travel in the [place] Within the Last 8 Weeks: No Recent Travel Out of the Country Within the Last 8 Weeks: No - Immunization History Tetanus Immunization: >5 Years Hx Influenza Vaccine This Season: No Medications and Allergies Active Medications: Active Medications Carvedilol (Coreg) 3.125 mg PO BID [facility] Last Admin: 06/14/18 09:59 Dose: 3.125 mg Cholestyramine Resin (Questran Light 4 Gm Pkt) 2 gm PO TID [facility] Last Admin: 06/14/18 12:01 Dose: 2 gm Furosemide (Lasix) 20 mg PO BID@0900,1800 [facility] Last Admin: 06/14/18 09:59 Dose: 20 mg Lactulose (Lactulose Liq) 30 ml PO QID [facility] Last Admin: 06/14/18 12:01 Dose: 30 ml Ondansetron HCl (Zofran Inj) 4 mg IV.PUSH Q6H PRN PRN Reason: NAUSEA OR VOMITING Pantoprazole Sodium (Protonix) 40 mg PO DAILY [facility] Last Admin: 06/14/18 09:59 Dose: 40 mg Rifaximin (Xifaxan) 550 mg PO BID [facility] Last Admin: 06/14/18 09:59 Dose: 550 mg Spironolactone (Aldactone) 100 mg PO DAILY [facility] Last Admin: 06/14/18 09:59 Dose: 100 mg Tamsulosin HCl (Flomax) 0.4 mg PO DAILY [facility] Last Admin: 06/14/18 09:59 Dose: 0.4 mg Zinc Sulfate (Zinc-220) 220 mg PO DAILY [facility] Last Admin: 06/14/18 09:59 Dose: 220 mg Allergies Allergy/AdvReac Type Severity Reaction Status Date / Time chlorhexidine Allergy Mild Rash Verified 06/12/18 16:45 Exam Vital signs: Vital Signs 06/13/18 16:00 06/13/18 17:46 06/13/18 20:00 Temperature 98.5 F 98.0 F Pulse Rate 73 65 Respiratory Rate 17 18 Blood Pressure 134/65 124/69 Pulse Oximetry 100 99 93 L 06/14/18 00:00 06/14/18 08:00 06/14/18 09:02 Temperature 98.1 F 98.1 F Pulse Rate 70 115 H Respiratory Rate 18 18 Blood Pressure 130/62 156/63 H Pulse Oximetry 99 98 96 06/14/18 12:00 Temperature 98.0 F Pulse Rate 60 Respiratory Rate 19 Blood Pressure 133/76 Pulse Oximetry 100 Intake & Output 06/13/18 06/14/18 06/14/18 18:59 06:59 18:59 Intake Total 560 / 560 Output Total 1500 / 1500 200 / 200 Balance -940 / -940 -200 / -200 Weight 119.7 kg Intake: Oral 560 / 560 Output: Urine 1500 / 1500 200 / 200 Other: Date of Last Bowel Movement 06/12/18 06/13/18 06/14/18 Narrative: GENERAL: Well-nourished, well-developed patient. SKIN: Warm and dry. HEAD: Normocephalic. EYES: scleral icterus. No injection or drainage. NECK: Supple, trachea midline. No JVD or lymphadenopathy. CARDIOVASCULAR: irregular rhythm without murmurs, gallops, or rubs. RESPIRATORY: Breath sounds equal bilaterally. No accessory muscle use. GASTROINTESTINAL: Abdomen soft, non-tender, distended. EXTREMITIES: As above NEUROLOGICAL: Lethargic altered mental status. Results - Lab Results 06/15/18 05:34 06/15/18 05:34 Most recent lab results Calcium 9.5 mg/dL (8.5-10.1) 06/14/18 10:37 Phosphorus 3.9 mg/dL (2.5-4.9) 06/13/18 08:36 Magnesium 2.6 mg/dL (1.5-2.5) H 06/13/18 08:36 Assessment and Plan - Assessment (1) Acute kidney injury Code(s): N17.9 - Acute kidney failure, unspecified Status: Acute (2) Hyperammonemia Code(s): E72.20 - Disorder of urea cycle metabolism, unspecified Status: Acute (3) Hepatic encephalopathy Code(s): K72.90 - Hepatic failure, unspecified without coma Status: Acute (4) Coagulopathy Code(s): D68.9 - Coagulation defect, unspecified Status: Acute - Plan Patient with hepatorenal syndrome we will check your urine sodium and creatinine , hydrate with using albumin 25 g IV every 12 hourly Patient has improvement in creatinine He has hepatic encephalopathy, continue with treatment of cirrhosis of the liver Prognosis is very poor Avoid nephrotoxic agents CMP ordered for tomorrow
--- NOTE | 2018-06-14 14:44 | P.PN ---
Subjective Interval history: Nursing denies any deterioration since last night except for 1 round of emesis. No significant improvement overall in somnolence per . I informed the that the patient has end-stage liver disease indicating hepatic failure given his INR of 2.0 and it has remained that way for the past few months. And I informed her that with the fact that the patient has active hepatitis C he may not be a candidate for transplant. Unable to perform paracentesis today due to persistently elevated INR. Physical Exam Vital signs: Vital Signs 06/13/18 16:00 06/13/18 17:46 06/13/18 20:00 Temperature 98.5 F 98.0 F Pulse Rate 73 65 Respiratory Rate 17 18 Blood Pressure 134/65 124/69 Pulse Oximetry 100 99 93 L 06/14/18 00:00 06/14/18 08:00 06/14/18 09:02 Temperature 98.1 F 98.1 F Pulse Rate 70 115 H Respiratory Rate 18 18 Blood Pressure 130/62 156/63 H Pulse Oximetry 99 98 96 06/14/18 12:00 Temperature 98.0 F Pulse Rate 60 Respiratory Rate 19 Blood Pressure 133/76 Pulse Oximetry 100 Intake & Output 06/13/18 06/14/18 06/14/18 18:59 06:59 18:59 Intake Total 560 / 560 Output Total 1500 / 1500 200 / 200 Balance -940 / -940 -200 / -200 Weight 119.7 kg Intake: Oral 560 / 560 Output: Urine 1500 / 1500 200 / 200 Other: Date of Last Bowel Movement 06/12/18 06/13/18 06/14/18 Narrative: Patient appears very somnolent, but awakens when prompted Has very minimal asterixis Abdomen appears mildly distended - Urinary Catheter Management Straight Cath placed during this visit: yes Reason for continuing: Not indwelling catheter Insertion date: 06/12/18 Insertion time: 19:10 Results - Labs CBC & Chem 7: 06/13/18 08:36 06/14/18 10:37 Laboratory Results - last 24 hr 06/12/18 06/13/18 06/13/18 19:05 08:36 08:36 PT INR Sodium Potassium Chloride Carbon Dioxide Anion Gap BUN Creatinine Estimated GFR Random Glucose Calcium Phosphorus 3.9 Magnesium 2.6 H Total Bilirubin AST ALT Alkaline Phosphatase Ammonia Total Creatine Kinase 32 L Total Protein Albumin Vitamin B12 2334 H Urine Color [place] Urine Clarity Hazy H Urine pH 5.0 Ur Specific [place] 1.011 Urine Protein Negative Urine Glucose (UA) Negative Urine Ketones Negative Urine Occult Blood Small H Urine Nitrate Negative Urine Bilirubin Negative Urine Urobilinogen 4 or greater Ur Leukocyte Esterase Moderate H Urine RBC 2 Urine WBC 42 H Urine WBC Clumps Few H Ur Squamous Epith Cells 1 Urine Bacteria Many H Urine Mucus Few H Micro UA Comment Culture indicated Urine Culture Comments Culture indicated 06/14/18 06/14/18 06/14/18 07:27 10:37 10:37 PT 21.3 H INR 2.1 Sodium 139 Potassium 4.6 Chloride 107 Carbon Dioxide 24.3 Anion Gap 8 BUN 35 H Creatinine 2.69 H Estimated GFR 29 L Random Glucose 119 H Calcium 9.5 Phosphorus Magnesium Total Bilirubin 9.7 H AST 121 H ALT 64 Alkaline Phosphatase 112 Ammonia 46 H Total Creatine Kinase Total Protein 8.1 Albumin 1.5 L Vitamin B12 Urine Color Urine Clarity Urine pH Ur Specific [place] Urine Protein Urine Glucose (UA) Urine Ketones Urine Occult Blood Urine Nitrate Urine Bilirubin Urine Urobilinogen Ur Leukocyte Esterase Urine RBC Urine WBC Urine WBC Clumps Ur Squamous Epith Cells Urine Bacteria Urine Mucus Micro UA Comment Urine Culture Comments Microbiology 06/12/18 19:05 Clean Catch Urine Urine Culture - Preliminary Klebsiella pneumoniae Assessment and Plan - Plan 63-year-old black male admitted for acute renal failure, metabolic encephalopathy. Hx of Cirrhosis. Hepatic encephalopathy Slowed mentation is evident, likely secondary to hepatic failure and azotemia Continue treating underlying problems of hepatic failure and acute renal failure B12, TSH, CK, magnesium, phosphorus all stable -zinc, continue lactulose and rifaximin -proceed with CT head -carvedilol Hepatitis C/cirrhosis/ascites/hyperbilirubinemia - Vit K ordered today, repeat INR tomorrow to see if paracentesis can be done then - questran - Meld score greater than 30, do not anticipate patient is a feasible transplant candidate given his hepatitis C, I explained to the right prognosis/ mortality of around 50% in around 3 months. Will consult gastroenterology to further expand on this and possible treatment options given that the patient has active hep C in a failing liver. Acute renal failure on CKD -Likely secondary to dehydration 2/2 lactulose and/or third spacing with cirrhosis -Do not anticipate further significant improvement secondary to liver disease generalized weakness -Likely multifactorial including metabolic encephalopathy element PT/OT/ST Symptomatic anemia -likely anemia of chronic dx, stable h/h s/p transfusion Atrial fibrillation -Rate controlled, on coreg at this time -Patient not on systemic anticoagulation due to bleeding risk
--- NOTE | 2018-06-14 16:24 | P.CONGI ---
History of Present Illness Consult date: 06/14/18 Consult reason: Hepatitis C Chief complaint: Acute kidney injury, Anemia, Cirrhosis, AMS History of Present Illness: This is a 62-year-old male with past medical history significant for hepatitis C , treatment hermelindo. Patient was diagnosed with cirrhosis during admission to [facility] in [place] in February. He has previously been seen by our service twice at [facility] since then. Patient has both times been advised to follow-up outpatient for treatment of hepatitis C. Patient reports that he had an appointment in the office today but was unable to go because he is here. Patient presented to the hospital 2 days ago with complaints of generalized fatigue and per patient's altered mental status. According to patient's he has been compliant with his medication at home including lactulose. Ammonia noted to be elevated on admission. At present, patient is oriented x3 and able to answer questions appropriately. He is lethargic. He had paracentesis ordered for today but due to coagulopathy this was unable to be done. He has received a dose of vitamin K with recheck INR tomorrow and hopes to proceed with paracentesis. <Maryam Braden - Last Filed: 06/14/18 16:15> Review of Systems Constitutional: Reports fatigue Gastrointestinal: Reports loose stools, Reports nausea, Reports vomiting, Denies abdominal pain, Denies black, tarry stools, Denies bright, red blood in stools, Denies vomiting blood <Maryam Braden - Last Filed: 06/14/18 16:15> [facility] - History History Provided By: Significant Other - Medical History Medical History: Medical History (Last Reviewed 06/14/18 @ 14:37 by Tati Whittington MD) Atrial fibrillation Cirrhosis Hepatitis C Prostate cancer Psoriasis - Surgical History Surgical History: Surgical History (Last Reviewed 06/14/18 @ 14:37 by Tati Whittington MD) H/O prostate biopsy - Family History Family History: Family History (Last Reviewed 06/14/18 @ 14:37 by Tati Whittington MD) Mother Family history of acute myocardial infarction - Tobacco History Second Hand Smoke Exposure: No Tobacco Use In Past 30 Days: No Smoking Status: Former smoker Tobacco Type: Cigarettes - Alcohol History How Often Do You Have a Drink Containing Alcohol: Never - Substance Use History Substance History: No History of Abuse - Travel History Recent Travel in the [facility] Within the Last 8 Weeks: No Recent Travel Out of the Country Within the Last 8 Weeks: No - Immunization History Tetanus Immunization: >5 Years Hx Influenza Vaccine This Season: No <LouiseniaDomoMaryam - Last Filed: 06/14/18 16:15> - Medical History Medical History: Medical History (Last Reviewed 06/14/18 @ 14:37 by Tati Whittington MD) Atrial fibrillation Cirrhosis Hepatitis C Prostate cancer Psoriasis - Surgical History Surgical History: Surgical History (Last Reviewed 06/14/18 @ 14:37 by Tati Whittington MD) H/O prostate biopsy - Family History Family History: Family History (Last Reviewed 06/14/18 @ 14:37 by Tati Whittington MD) Mother Family history of acute myocardial infarction <Kem Blair - Last Filed: 06/15/18 16:25> Medications and Allergies Active Medications: Active Medications Carvedilol (Coreg) 3.125 mg PO BID [facility] Last Admin: 06/14/18 09:59 Dose: 3.125 mg Cholestyramine Resin (Questran Light 4 Gm Pkt) 2 gm PO TID [facility] Last Admin: 06/14/18 12:01 Dose: 2 gm Furosemide (Lasix) 20 mg PO BID@0900,1800 [facility] Last Admin: 06/14/18 09:59 Dose: 20 mg Albumin Human (Flexbumin 25% Inj) 100 mls @ 60 mls/hr IV.SIG Q12H [facility] Lactulose (Lactulose Liq) 30 ml PO QID [facility] Last Admin: 06/14/18 12:01 Dose: 30 ml Ondansetron HCl (Zofran Inj) 4 mg IV.PUSH Q6H PRN PRN Reason: NAUSEA OR VOMITING Pantoprazole Sodium (Protonix) 40 mg PO DAILY [facility] Last Admin: 06/14/18 09:59 Dose: 40 mg Rifaximin (Xifaxan) 550 mg PO BID [facility] Last Admin: 06/14/18 09:59 Dose: 550 mg Spironolactone (Aldactone) 100 mg PO DAILY [facility] Last Admin: 06/14/18 09:59 Dose: 100 mg Tamsulosin HCl (Flomax) 0.4 mg PO DAILY [facility] Last Admin: 06/14/18 09:59 Dose: 0.4 mg Zinc Sulfate (Zinc-220) 220 mg PO DAILY [facility] Last Admin: 06/14/18 09:59 Dose: 220 mg <Maryam Braden - Last Filed: 06/14/18 16:15> Active Medications: Active Medications Carvedilol (Coreg) 3.125 mg PO BID [facility] Last Admin: 06/15/18 08:47 Dose: 3.125 mg Cholestyramine Resin (Questran Light 4 Gm Pkt) 2 gm PO QID [facility] Last Admin: 06/15/18 13:28 Dose: 2 gm Furosemide (Lasix) 20 mg PO BID@0900,1800 [facility] Last Admin: 06/15/18 10:01 Dose: 20 mg Hydroxyzine HCl (Atarax) 50 mg PO Q6H PRN PRN Reason: ITCHING Albumin Human (Flexbumin 25% Inj) 100 mls @ 60 mls/hr IV.SIG Q12H [facility] Last Admin: 06/15/18 14:28 Dose: 60 mls/hr Ceftriaxone Sodium 1,000 mg/ (Sodium Chloride) 100 mls @ 200 mls/hr IV.SIG Q24H [facility] Last Infusion: 06/15/18 14:19 Dose: Infused Lactulose (Lactulose Liq) 30 ml PO QID [facility] Last Admin: 06/15/18 13:28 Dose: 30 ml Ondansetron HCl (Zofran Inj) 4 mg IV.PUSH Q6H PRN PRN Reason: NAUSEA OR VOMITING Last Admin: 06/15/18 10:28 Dose: 4 mg Pantoprazole Sodium (Protonix) 40 mg PO DAILY [facility] Last Admin: 06/15/18 08:47 Dose: 40 mg Rifaximin (Xifaxan) 550 mg PO BID [facility] Last Admin: 06/15/18 08:47 Dose: 550 mg Spironolactone (Aldactone) 100 mg PO DAILY [facility] Last Admin: 06/15/18 08:47 Dose: 100 mg Tamsulosin HCl (Flomax) 0.4 mg PO DAILY [facility] Last Admin: 06/15/18 08:47 Dose: 0.4 mg Zinc Sulfate (Zinc-220) 220 mg PO DAILY [facility] Last Admin: 06/15/18 08:47 Dose: 220 mg <Kem Blair - Last Filed: 06/15/18 16:25> Allergies Allergy/AdvReac Type Severity Reaction Status Date / Time chlorhexidine Allergy Mild Rash Verified 06/12/18 16:45 Exam Vital signs: Vital Signs 06/13/18 17:46 06/13/18 20:00 06/14/18 00:00 Temperature 98.0 F 98.1 F Pulse Rate 65 70 Respiratory Rate 18 18 Blood Pressure 124/69 130/62 Pulse Oximetry 99 93 L 99 06/14/18 08:00 06/14/18 09:02 06/14/18 12:00 Temperature 98.1 F 98.0 F Pulse Rate 115 H 60 Respiratory Rate 18 19 Blood Pressure 156/63 H 133/76 Pulse Oximetry 98 96 100 Intake & Output 06/13/18 06/14/18 06/14/18 18:59 06:59 18:59 Intake Total 560 / 560 Output Total 1500 / 1500 200 / 200 Balance -940 / -940 -200 / -200 Weight 119.7 kg Intake: Oral 560 / 560 Output: Urine 1500 / 1500 200 / 200 Other: Date of Last Bowel Movement 06/12/18 06/13/18 06/14/18 - Constitutional no acute distress - Routine HEENT Exam Head: Present: normocephalic, atraumatic Eye: Present: conjunctival icterus - Routine Respiratory Exam Absent: accessory muscle use - Routine Abdominal Exam Present: soft, normoactive bowel sounds, distended. Absent: tenderness - Routine Skin Exam Present: dry, warm - Routine Neurological Exam Present: alert, oriented X3 <Maryam Braden - Last Filed: 06/14/18 16:15> Vital signs: Vital Signs 06/14/18 20:00 06/14/18 22:07 06/15/18 00:00 Temperature 98.0 F 98.3 F Pulse Rate 74 71 Respiratory Rate 18 15 Blood Pressure 129/65 120/59 L Pulse Oximetry 95 98 97 06/15/18 04:00 06/15/18 07:58 06/15/18 12:00 Temperature 97.7 F 98.1 F 97.8 F Pulse Rate 68 73 68 Respiratory Rate 16 16 16 Blood Pressure 114/57 L 124/62 128/62 Pulse Oximetry 93 L 98 98 Intake & Output 06/14/18 06/15/18 06/15/18 18:59 06:59 18:59 Intake Total 960 / 960 100 / 100 100 / 100 Output Total 400 / 400 300 / 300 Balance 560 / 560 -200 / -200 100 / 100 Weight 120.5 kg Intake: IV 100 / 100 100 / 100 Flexbumin 25% Inj 100 ML @ 60 100 / 100 mls/hr IV.SIG Q12H [facility] Rx#: [id number] Rocephin Inj 1,000 MG In NS Inj 100 / 100 100 ML @ 200 mls/hr IV.SIG Q24H [facility] Rx#:[id number] Oral 960 / 960 Output: Urine 400 / 400 300 / 300 Other: Date of Last Bowel Movement 06/14/18 06/14/18 <Kem Blair - Last Filed: 06/15/18 16:25> Results - Labs CBC & Chem 7: 06/13/18 08:36 06/14/18 10:37 Labs: Laboratory Results - last 24 hr 06/13/18 06/14/18 06/14/18 08:36 07:27 10:37 PT INR Sodium 139 Potassium 4.6 Chloride 107 Carbon Dioxide 24.3 Anion Gap 8 BUN 35 H Creatinine 2.69 H Estimated GFR 29 L Random Glucose 119 H Calcium 9.5 Total Bilirubin 9.7 H AST 121 H ALT 64 Alkaline Phosphatase 112 Ammonia 46 H Total Protein 8.1 Albumin 1.5 L Vitamin B12 2334 H 06/14/18 10:37 PT 21.3 H INR 2.1 Sodium Potassium Chloride Carbon Dioxide Anion Gap BUN Creatinine Estimated GFR Random Glucose Calcium Total Bilirubin AST ALT Alkaline Phosphatase Ammonia Total Protein Albumin Vitamin B12 <Maryam Braden - Last Filed: 06/14/18 16:15> - Labs CBC & Chem 7: 06/15/18 05:34 06/15/18 05:34 Labs: Laboratory Results - last 24 hr 06/15/18 06/15/18 06/15/18 05:34 05:34 05:34 WBC 5.0 RBC 2.04 L Hgb 7.6 L Hct 21.9 L MCV 107.5 H MCH 37.3 H MCHC 34.7 RDW 16.6 Plt Count 69 L MPV 8.7 Prelim Diff (Auto) Slide review pending Neut % (Auto) 66.4 Lymph % (Auto) 16.9 [place] % (Auto) 13.0 H Eos % (Auto) 3.1 Baso % (Auto) 0.6 Neut # (Auto) 3.3 Lymph # (Auto) 0.8 L [place] # (Auto) 0.6 Eos # (Auto) 0.2 Baso # (Auto) 0.0 WBC Differential . Diff Scan Auto diff confirmed Differential Comment . Platelet Estimate Low L Platelet Morphology Normal RBC Morphology PT 21.3 H INR 2.1 Sodium 138 Potassium 4.4 Chloride 104 Carbon Dioxide 25.1 Anion Gap 9 BUN 32 H Creatinine 2.55 H Estimated GFR 31 L Random Glucose 96 Calcium 9.2 Total Bilirubin 9.5 H AST 117 H ALT 61 Alkaline Phosphatase 111 Total Protein 7.9 Albumin 1.5 L - Imaging Impressions Head CT 06/14/18 00:00 CONCLUSION: 1. No acute intracranial abnormality. . 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 Patient first diagnosed with cirrhosis during hospitalization to [facility] in [place] in February. [facility] twice at [facility] since then, has been advised to follow-up outpatient for treatment of hepatitis C. Patient had an appointment in the office today, however was unable to attend because he has been admitted here since Tuesday. Patient presented to the hospital with altered mental status per and complains of lethargy for the past 3 days. Patient's states that he has been compliant with medication at home including lactulose. Ammonia was elevated on admission. At present, patient is oriented x3 and answers questions appropriately. He does remain lethargic. Also reports some nausea with 2 episodes of emesis, denies about emesis and coffee-ground emesis. Denies any hematochezia and melena. Patient denies any abdominal pain at this time, does note abdominal distention. Imaging revealed moderate amount of ascites. Was plan for paracentesis today, however was unable to do this due to coagulopathy. Patient received vitamin K today with plans to proceed with paracentesis tomorrow if INR corrects. 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 Coagulopathysecondary to above Thrombocytopenia-secondary to above Plan Paracentesis tomorrow status post vitamin K today Monitor coagulopathy Continue diuretics Monitor renal function Appreciate nephrology input Xifaxan Lactulose Monitor ammonia Monitor LFTs Avoid nephrotoxins Protonix Continue supportive care Outpatient treatment for hepatitis C as previously advised Further recommendations to follow Discussed findings with Dr. Blair and this note is written on his behalf <Maryam Braden - Last Filed: 06/14/18 16:15> - Plan Seen and examined with SENIOR LIVING ADVISOR, Hep c related cirrhosis. No recent ETOH for at least 2 months. Liver dillon ordered. <Kem Blair - Last Filed: 06/15/18 16:25>
--- NOTE | 2018-06-14 17:06 | CT ---
EXAM DATE: 06/14/2018 2:35 PM EDT AGE/SEX: 63 years / Male INDICATIONS: Altered mental status, generalized weakness. CLINICAL DATA: This is the patient's initial encounter. Patient reports that signs and symptoms have been present for 1 day and indicates a pain score of 0/10. MEDICAL/SURGICAL HISTORY: Carcinoma, prostatic. Hepatitis C. None. RADIATION DOSE: 56.35 CTDI (mGy) COMPARISON: [facility] [place], CT HEAD W/O CONTRAST, 06/12/2018. . TECHNIQUE: CT of the head without contrast. Using automated exposure control and adjustment of the mA and/or kV according to patient size, radiation dose was kept as low as reasonably achievable to ob tain optimal diagnostic quality images. DICOM format image data is available electronically for revi ew and comparison. FINDINGS: Cerebrum: The ventricles are normal for age. No evidence of midline shift, mass lesion, hemorrhage or acute infarction. No extraaxial fluid collections are seen. Posterior Fossa: The cerebellum and brainstem are intact. The 4th ventricle is midline. The cerebe llopontine angle is unremarkable. Extracranial: The visualized portion of the orbits is intact. Skull: The calvaria is intact. No evidence of skull fracture. CONCLUSION: 1. No acute intracranial abnormality. . Electronically signed by: Jerman Graham MD 06/14/2018 5:04 PM EDT
[2018-06-14] MEDS: Albumin Human 25% Inj 100 ML IV.SIG SCH (17:31)
[2018-06-15] MEDS: Albumin Human 25% Inj 100 ML IV.SIG SCH ×2 (03:00→14:28)
[2018-06-15 06:35] LABS: Baso % (Auto) 0.6 % (0.0-2.0); Eos # (Auto) 0.2 th/mm3 (0.0-0.4); Eos % (Auto) 3.1 % (0.0-4.0); Hematocrit 21.9 % (39.0-51.0); Hemoglobin 7.6 gm/dL (13.0-17.0); Lymph # (Auto) 0.8 th/mm3 (1.0-4.8); Lymph % (Auto) 16.9 % (9.0-44.0); Mean Corpuscular HGB Conc 34.7 % (32.0-36.0); Mean Corpuscular Hemoglobin 37.3 pg (27.0-34.0); Mean Corpuscular Volume 107.5 fL (80.0-100.0); Mean Platelet Volume 8.7 fL (7.0-11.0); Mono # (Auto) 0.6 th/mm3 (0.0-0.9); Neut # (Auto) 3.3 th/mm3 (1.8-7.7); Neut % (Auto) 66.4 % (16.0-70.0); Platelet Count 69 th/mm3 (150-450); Red Blood Count 2.04 mil/mm3 (4.50-5.90); Red Cell Distribution Width 16.6 % (11.6-17.2)
[2018-06-15 06:41] LABS: Albumin 1.5 g/dL (3.4-5.0); Anion Gap 9 meq/L (5-15); Aspartate Aminotransferase 117 U/L (15-37); Blood Urea Nitrogen 32 mg/dL (7-18); Calcium 9.2 mg/dL (8.5-10.1); Carbon Dioxide 25.1 meq/L (21.0-32.0); Chloride 104 meq/L (98-107); Glomerular Filtration Rate 31 mL/min (>89); Glucose,Random 96 mg/dL (74-106); Potassium 4.4 meq/L (3.5-5.1); Sodium 138 meq/L (136-145)
[2018-06-15 06:43] LABS: Alanine Aminotransferase 61 U/L (12-78)
[2018-06-15 06:45] LABS: Alkaline Phosphatase 111 U/L (45-117); Total Protein 7.9 g/dL (6.4-8.2)
[2018-06-15 06:51] LABS: INR 2.1 Ratio; Prothrombin Time 21.3 sec (9.8-11.6)
[2018-06-15 08:02] LABS: Platelet Morphology Normal (Normal)
[2018-06-15] MEDS: Cholestyramine Light 4 GM Packet PO SCH ×4 (08:47→20:32)
[2018-06-15] MEDS: rifAXIMin 550 MG Tablet PO SCH ×2 (08:47→20:31)
[2018-06-15] MEDS: Spironolactone 50 MG Tablet PO SCH (08:47)
[2018-06-15] MEDS: Furosemide 20 MG Tablet PO SCH ×2 (10:01→18:43)
--- NOTE | 2018-06-15 11:29 | P.PNGI ---
Subjective Interval history: Patient resting soundly in bed. Reports mild intermittent nausea, denies any vomiting, denies abdominal pain or any noted bleeding. Spouse at bedside. <Gena Rausch - Last Filed: 06/15/18 11:17> Physical Exam Vital signs: Vital Signs 06/14/18 12:00 06/14/18 16:00 06/14/18 20:00 Temperature 98.0 F 97.9 F 98.0 F Pulse Rate 60 66 74 Respiratory Rate 19 18 18 Blood Pressure 133/76 91/59 L 129/65 Pulse Oximetry 100 100 95 06/14/18 22:07 06/15/18 00:00 06/15/18 04:00 Temperature 98.3 F 97.7 F Pulse Rate 71 68 Respiratory Rate 15 16 Blood Pressure 120/59 L 114/57 L Pulse Oximetry 98 97 93 L 06/15/18 07:58 Temperature 98.1 F Pulse Rate 73 Respiratory Rate 16 Blood Pressure 124/62 Pulse Oximetry 98 Intake & Output 06/14/18 06/15/18 06/15/18 18:59 06:59 18:59 Intake Total 960 / 960 100 / 100 Output Total 400 / 400 300 / 300 Balance 560 / 560 -200 / -200 Weight 120.5 kg Intake: IV 100 / 100 Flexbumin 25% Inj 100 ML @ 60 100 / 100 mls/hr IV.SIG Q12H [facility] Rx#: [id number] Oral 960 / 960 Output: Urine 400 / 400 300 / 300 Other: Date of Last Bowel Movement 06/14/18 - Constitutional mild distress Comments: Patient reporting generalized itching. Nurse administered hydroxyzine - Routine HEENT Exam Head: Present: normocephalic Eye: Present: conjunctival icterus - Routine Respiratory Exam Present: CTA bilaterally. Absent: accessory muscle use - Routine Cardiovascular Exam Present: RRR - Routine Abdominal Exam Present: soft, normoactive bowel sounds, distended. Absent: tenderness, guarding, firm - Routine Skin Exam Present: dry, warm - Routine Neurological Exam Present: alert, oriented X3 - Routine Psychiatric Exam Present: normal affect, cooperative - Urinary Catheter Management Straight Cath placed during this visit: yes Reason for continuing: Not indwelling catheter Insertion date: 06/12/18 Insertion time: 19:10 <Gena Rausch - Last Filed: 06/15/18 11:17> Vital signs: Vital Signs 06/14/18 20:00 06/14/18 22:07 06/15/18 00:00 Temperature 98.0 F 98.3 F Pulse Rate 74 71 Respiratory Rate 18 15 Blood Pressure 129/65 120/59 L Pulse Oximetry 95 98 97 06/15/18 04:00 06/15/18 07:58 06/15/18 12:00 Temperature 97.7 F 98.1 F 97.8 F Pulse Rate 68 73 68 Respiratory Rate 16 16 16 Blood Pressure 114/57 L 124/62 128/62 Pulse Oximetry 93 L 98 98 06/15/18 16:00 Temperature 98.0 F Pulse Rate 68 Respiratory Rate 17 Blood Pressure 137/68 Pulse Oximetry 98 Intake & Output 06/14/18 06/15/18 06/15/18 18:59 06:59 18:59 Intake Total 960 / 960 100 / 100 200 / 200 Output Total 400 / 400 300 / 300 Balance 560 / 560 -200 / -200 200 / 200 Weight 120.5 kg Intake: IV 100 / 100 200 / 200 Flexbumin 25% Inj 100 ML @ 60 100 / 100 100 / 100 mls/hr IV.SIG Q12H [facility] Rx#: [id number] Rocephin Inj 1,000 MG In NS Inj 100 / 100 100 ML @ 200 mls/hr IV.SIG Q24H [facility] Rx#:[id number] Oral 960 / 960 Output: Urine 400 / 400 300 / 300 Other: Date of Last Bowel Movement 06/14/18 06/14/18 - Urinary Catheter Management Straight Cath placed during this visit: no <Kem Blair - Last Filed: 06/15/18 17:02> Results - Labs CBC & Chem 7: 06/15/18 05:34 06/15/18 05:34 Laboratory Results - last 24 hr 06/14/18 06/15/18 06/15/18 10:37 05:34 05:34 WBC 5.0 RBC 2.04 L Hgb 7.6 L Hct 21.9 L MCV 107.5 H MCH 37.3 H MCHC 34.7 RDW 16.6 Plt Count 69 L MPV 8.7 Prelim Diff (Auto) Slide review pending Neut % (Auto) 66.4 Lymph % (Auto) 16.9 [place] % (Auto) 13.0 H Eos % (Auto) 3.1 Baso % (Auto) 0.6 Neut # (Auto) 3.3 Lymph # (Auto) 0.8 L [place] # (Auto) 0.6 Eos # (Auto) 0.2 Baso # (Auto) 0.0 WBC Differential . Diff Scan Auto diff confirmed Differential Comment . Platelet Estimate Low L Platelet Morphology Normal RBC Morphology PT INR Sodium 139 138 Potassium 4.6 4.4 Chloride 107 104 Carbon Dioxide 24.3 25.1 Anion Gap 8 9 BUN 35 H 32 H Creatinine 2.69 H 2.55 H Estimated GFR 29 L 31 L Random Glucose 119 H 96 Calcium 9.5 9.2 Total Bilirubin 9.7 H 9.5 H AST 121 H 117 H ALT 64 61 Alkaline Phosphatase 112 111 Total Protein 8.1 7.9 Albumin 1.5 L 1.5 L 06/15/18 05:34 WBC RBC Hgb Hct MCV MCH MCHC RDW Plt Count MPV Prelim Diff (Auto) Neut % (Auto) Lymph % (Auto) [place] % (Auto) Eos % (Auto) Baso % (Auto) Neut # (Auto) Lymph # (Auto) [place] # (Auto) Eos # (Auto) Baso # (Auto) WBC Differential Diff Scan Differential Comment Platelet Estimate Platelet Morphology RBC Morphology PT 21.3 H INR 2.1 Sodium Potassium Chloride Carbon Dioxide Anion Gap BUN Creatinine Estimated GFR Random Glucose Calcium Total Bilirubin AST ALT Alkaline Phosphatase Total Protein Albumin Microbiology 06/12/18 19:05 Clean Catch Urine Urine Culture - Final Klebsiella pneumoniae - Imaging Impressions Head CT 06/14/18 00:00 CONCLUSION: 1. No acute intracranial abnormality. . <Gena Rausch - Last Filed: 06/15/18 11:17> - Labs CBC & Chem 7: 06/15/18 05:34 06/15/18 05:34 Laboratory Results - last 24 hr 06/15/18 06/15/18 06/15/18 05:34 05:34 05:34 WBC 5.0 RBC 2.04 L Hgb 7.6 L Hct 21.9 L MCV 107.5 H MCH 37.3 H MCHC 34.7 RDW 16.6 Plt Count 69 L MPV 8.7 Prelim Diff (Auto) Slide review pending Neut % (Auto) 66.4 Lymph % (Auto) 16.9 [place] % (Auto) 13.0 H Eos % (Auto) 3.1 Baso % (Auto) 0.6 Neut # (Auto) 3.3 Lymph # (Auto) 0.8 L [place] # (Auto) 0.6 Eos # (Auto) 0.2 Baso # (Auto) 0.0 WBC Differential . Diff Scan Auto diff confirmed Differential Comment . Platelet Estimate Low L Platelet Morphology Normal RBC Morphology PT 21.3 H INR 2.1 Sodium 138 Potassium 4.4 Chloride 104 Carbon Dioxide 25.1 Anion Gap 9 BUN 32 H Creatinine 2.55 H Estimated GFR 31 L Random Glucose 96 Calcium 9.2 Total Bilirubin 9.5 H AST 117 H ALT 61 Alkaline Phosphatase 111 Total Protein 7.9 Albumin 1.5 L Microbiology 06/12/18 19:05 Clean Catch Urine Urine Culture - Final Klebsiella pneumoniae - Imaging Impressions Head CT 06/14/18 00:00 CONCLUSION: 1. No acute intracranial abnormality. . 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 Patient first diagnosed with cirrhosis during hospitalization to [facility] in [place] in February. [facility] service twice at [facility] since then, has been advised to follow-up outpatient for treatment of hepatitis C. Patient had an appointment in the office today, however was unable to attend because he has been admitted here since Tuesday. Patient presented to the hospital with altered mental status per and complains of lethargy for the past 3 days. Patient's states that he has been compliant with medication at home including lactulose. Ammonia was elevated on admission. At present, patient is oriented x3 and answers questions appropriately. He does remain lethargic. Also reports some nausea with 2 episodes of emesis, denies about emesis and coffee-ground emesis. Denies any hematochezia and melena. Patient denies any abdominal pain at this time, does note abdominal distention. Imaging revealed moderate amount of ascites. Was plan for paracentesis today, however was unable to do this due to coagulopathy. Patient received vitamin K today with plans to proceed with paracentesis tomorrow if INR corrects. 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 Coagulopathysecondary to above Thrombocytopenia-secondary to above 06/15/18 Liver cirrhosis/hepatitis C treatment hermelindo Total bilirubin 9.5 AST 117 ALT 61 alk phos 111(06/14/2018) ammonia 46 Coagulopathy INR 2.1, 2 units FFP ordered to be given at midnight on 06/16/2018, recheck INR in the a.m. with plans to proceed with paracentesis Plan -Regular diet as [id number] -Recheck INR in the a.m. after FFP infusion -Plan to proceed with paracentesis tomorrow -Monitor labs -Monitor for bleeding -Monitor for hepatic encephalopathy -Continue diuretics as ordered -Xifaxan -Lactulose -Continue PPI -Supportive care -Outpatient treatment for hep C -Further recommendations to follow This patient has been seen by myself and Dr. Blair and this note is written on his behalf - Attending Attestation Dr. Blair <Gena Rausch - Last Filed: 06/15/18 11:17> - Plan Seen and examined with EMR TRAINER, MELD score 32. No recent ETOH reported. Not a liver transplant candidate due to hepatorenal syndrome and lack of finances. Family working on trying to get insurance for him so he can be treated for Hep C. appointment with gi for next week. Discussed in detail with family at bedside. <Kem Blair - Last Filed: 06/15/18 17:02>
--- NOTE | 2018-06-15 11:53 | P.PN ---
Subjective Interval history: Follow-up for hepatic encephalopathy and generalized weakness. Nursing denies any deterioration since last night apart from the mentioning that the 50 mg of Benadryl helped with the patient's itching over the 25 mg. Patient's and now daughter at the bedside. Patient's INR still supratherapeutic this morning at 2.1 despite vitamin K dosing yesterday. I am awaiting for GI to have discussion about prognosis with the patient and family. Physical Exam Vital signs: Vital Signs 06/14/18 12:00 06/14/18 16:00 06/14/18 20:00 Temperature 98.0 F 97.9 F 98.0 F Pulse Rate 60 66 74 Respiratory Rate 19 18 18 Blood Pressure 133/76 91/59 L 129/65 Pulse Oximetry 100 100 95 06/14/18 22:07 06/15/18 00:00 06/15/18 04:00 Temperature 98.3 F 97.7 F Pulse Rate 71 68 Respiratory Rate 15 16 Blood Pressure 120/59 L 114/57 L Pulse Oximetry 98 97 93 L 06/15/18 07:58 Temperature 98.1 F Pulse Rate 73 Respiratory Rate 16 Blood Pressure 124/62 Pulse Oximetry 98 Intake & Output 06/14/18 06/15/18 06/15/18 18:59 06:59 18:59 Intake Total 960 / 960 100 / 100 Output Total 400 / 400 300 / 300 Balance 560 / 560 -200 / -200 Weight 120.5 kg Intake: IV 100 / 100 Flexbumin 25% Inj 100 ML @ 60 100 / 100 mls/hr IV.SIG Q12H COUNT INCLUDES THE [facility] Rx#: [id number] Oral 960 / 960 Output: Urine 400 / 400 300 / 300 Other: Date of Last Bowel Movement 06/14/18 06/14/18 Narrative: Abdomen appears more distended today, soft Clear lungs bilaterally Unlabored breathing Appears somnolent Scleral icterus present - Urinary Catheter Management Straight Cath placed during this visit: yes Reason for continuing: Not indwelling catheter Insertion date: 06/12/18 Insertion time: 19:10 Results - Labs CBC & Chem 7: 06/15/18 05:34 06/15/18 05:34 Laboratory Results - last 24 hr 06/15/18 06/15/18 06/15/18 05:34 05:34 05:34 WBC 5.0 RBC 2.04 L Hgb 7.6 L Hct 21.9 L MCV 107.5 H MCH 37.3 H MCHC 34.7 RDW 16.6 Plt Count 69 L MPV 8.7 Prelim Diff (Auto) Slide review pending Neut % (Auto) 66.4 Lymph % (Auto) 16.9 [place] % (Auto) 13.0 H Eos % (Auto) 3.1 Baso % (Auto) 0.6 Neut # (Auto) 3.3 Lymph # (Auto) 0.8 L [place] # (Auto) 0.6 Eos # (Auto) 0.2 Baso # (Auto) 0.0 WBC Differential . Diff Scan Auto diff confirmed Differential Comment . Platelet Estimate Low L Platelet Morphology Normal RBC Morphology PT 21.3 H INR 2.1 Sodium 138 Potassium 4.4 Chloride 104 Carbon Dioxide 25.1 Anion Gap 9 BUN 32 H Creatinine 2.55 H Estimated GFR 31 L Random Glucose 96 Calcium 9.2 Total Bilirubin 9.5 H AST 117 H ALT 61 Alkaline Phosphatase 111 Total Protein 7.9 Albumin 1.5 L Microbiology 06/12/18 19:05 Clean Catch Urine Urine Culture - Final Klebsiella pneumoniae - Imaging Impressions Head CT 06/14/18 00:00 CONCLUSION: 1. No acute intracranial abnormality. . Assessment and Plan - Plan 63-year-old black male admitted for acute renal failure, metabolic encephalopathy. Hx of Cirrhosis. Other metabolic causes have been ruled out for his encephalopathy Hepatic encephalopathy Slowed mentation is evident, likely secondary to hepatic failure and azotemia Continue treating underlying problems of hepatic failure and acute renal failure -zinc, continue lactulose and rifaximin -CT head is negative for any acute causes -Klebsiella growing on urine specimen, starting Rocephin Hepatitis C/cirrhosis/ascites/hyperbilirubinemia -Still persistently supratherapeutic INR despite 5 mg of vitamin K subcutaneous dosing yesterday, FFP ordered by GI today, repeat INR tomorrow to see if paracentesis can be done then - Questran Benadryl - Coreg, spironolactone - Meld score greater than 30, do not anticipate patient is a feasible transplant candidate given his hepatitis C, I explained to the right prognosis/ mortality of around 50% in around 3 months. GI has explained to the patient little to no likelihood of a liver transplant Hepatorenal syndrome -Likely secondary to dehydration 2/2 lactulose and/or third spacing with cirrhosis -Do not anticipate further significant improvement secondary to liver disease UTI Rocephin as above generalized weakness -Likely multifactorial including metabolic encephalopathy element PT/OT/ST Symptomatic anemia -likely anemia of chronic dx, stable h/h s/p transfusion Atrial fibrillation -Rate controlled, on coreg at this time -Patient not on systemic anticoagulation due to bleeding risk
--- NOTE | 2018-06-15 14:33 | P.PNNP ---
Subjective Interval history: Patient is weak Physical Exam Vital signs: Vital Signs 06/14/18 16:00 06/14/18 20:00 06/14/18 22:07 Temperature 97.9 F 98.0 F Pulse Rate 66 74 Respiratory Rate 18 18 Blood Pressure 91/59 L 129/65 Pulse Oximetry 100 95 98 06/15/18 00:00 06/15/18 04:00 06/15/18 07:58 Temperature 98.3 F 97.7 F 98.1 F Pulse Rate 71 68 73 Respiratory Rate 15 16 16 Blood Pressure 120/59 L 114/57 L 124/62 Pulse Oximetry 97 93 L 98 06/15/18 12:00 Temperature 97.8 F Pulse Rate 68 Respiratory Rate 16 Blood Pressure 128/62 Pulse Oximetry 98 Intake & Output 06/14/18 06/15/18 06/15/18 18:59 06:59 18:59 Intake Total 960 / 960 100 / 100 100 / 100 Output Total 400 / 400 300 / 300 Balance 560 / 560 -200 / -200 100 / 100 Weight 120.5 kg Intake: IV 100 / 100 100 / 100 Flexbumin 25% Inj 100 ML @ 60 100 / 100 mls/hr IV.SIG Q12H [facility] Rx#: [id number] Rocephin Inj 1,000 MG In NS Inj 100 / 100 100 ML @ 200 mls/hr IV.SIG Q24H [facility] Rx#:[id number] Oral 960 / 960 Output: Urine 400 / 400 300 / 300 Other: Date of Last Bowel Movement 06/14/18 06/14/18 Narrative: GENERAL: Well-nourished, well-developed patient. SKIN: Warm and dry. HEAD: Normocephalic. EYES: scleral icterus. No injection or drainage. NECK: Supple, trachea midline. No JVD or lymphadenopathy. CARDIOVASCULAR: irregular rhythm without murmurs, gallops, or rubs. RESPIRATORY: Breath sounds equal bilaterally. No accessory muscle use. GASTROINTESTINAL: Abdomen soft, non-tender, distended. EXTREMITIES: As above NEUROLOGICAL: Lethargic altered mental status. - Urinary Catheter Management Straight Cath placed during this visit: yes Reason for continuing: Not indwelling catheter Insertion date: 06/12/18 Insertion time: 19:10 Assessment and Plan - Assessment (1) Acute kidney injury Code(s): N17.9 - Acute kidney failure, unspecified Status: Acute (2) Hyperammonemia Code(s): E72.20 - Disorder of urea cycle metabolism, unspecified Status: Acute (3) Hepatic encephalopathy Code(s): K72.90 - Hepatic failure, unspecified without coma Status: Acute (4) Coagulopathy Code(s): D68.9 - Coagulation defect, unspecified Status: Acute - Plan Patient with hepatorenal syndrome we will check your urine sodium and creatinine , on albumin 25 g IV every 12 hourly Patient has improvement in creatinine He has hepatic encephalopathy, continue with treatment of cirrhosis of the liver Prognosis is very poor Avoid nephrotoxic agents Creatinine remains elevated prognosis is poor
[2018-06-16] MEDS: Albumin Human 25% Inj 100 ML IV.SIG SCH ×2 (03:21→15:55)
[2018-06-16 04:27] LABS: INR 2.1 Ratio; Prothrombin Time 21.3 sec (9.8-11.6)
[2018-06-16 08:26] LABS: Prothrombin Time 20.1 sec (9.8-11.6)
[2018-06-16] MEDS: rifAXIMin 550 MG Tablet PO SCH ×2 (08:53→21:00)
[2018-06-16] MEDS: Cholestyramine Light 4 GM Packet PO SCH ×4 (08:54→21:00)
[2018-06-16] MEDS: Spironolactone 50 MG Tablet PO SCH (08:54)
[2018-06-16] MEDS: Furosemide 20 MG Tablet PO SCH ×2 (10:08→17:59)
--- NOTE | 2018-06-16 10:54 | P.PNGI ---
Subjective Interval history: Patient sitting upright in bed, states he slept well last night. Denies any abdominal pain, nausea or vomiting. Appetite fair <Rausch,Gena - Last Filed: 06/16/18 10:32> Physical Exam Vital signs: Vital Signs 06/15/18 12:00 06/15/18 16:00 06/15/18 20:00 Temperature 97.8 F 98.0 F 98.1 F Pulse Rate 68 68 69 Respiratory Rate 16 17 17 Blood Pressure 128/62 137/68 123/66 Pulse Oximetry 98 98 98 06/16/18 00:00 06/16/18 04:15 06/16/18 04:45 Temperature 98.3 F 98.7 F Pulse Rate 70 74 70 Respiratory Rate 17 17 16 Blood Pressure 119/59 L 129/69 124/70 Pulse Oximetry 98 100 98 06/16/18 05:07 06/16/18 05:30 06/16/18 06:07 Temperature 98.3 F 97.8 F 97.8 F Pulse Rate 65 71 69 Respiratory Rate 18 18 18 Blood Pressure 119/58 L 117/69 115/61 Pulse Oximetry 99 06/16/18 08:00 Temperature 98.9 F Pulse Rate 73 Respiratory Rate 18 Blood Pressure 116/67 Pulse Oximetry 99 Intake & Output 06/15/18 06/16/18 06/16/18 18:59 06:59 18:59 Intake Total 200 / 200 857 / 857 Output Total 300 / 300 Balance 200 / 200 557 / 557 Weight 120.5 kg Intake: IV 200 / 200 100 / 100 Flexbumin 25% Inj 100 ML @ 60 100 / 100 100 / 100 mls/hr IV.SIG Q12H [facility] Rx#: [id number] Rocephin Inj 1,000 MG In NS Inj 100 / 100 100 ML @ 200 mls/hr IV.SIG Q24H [facility] Rx#:[id number] Oral 240 / 240 Intake (Blood Product) Amt 517 / 517 Plasma Thawed 5 Day Cp2d Unit 308 / 308 [id number] Plasma Thawed 5 Day Cp2d Unit 209 / 209 [id number] Output: Urine 300 / 300 Other: Date of Last Bowel Movement 06/14/18 - Constitutional no acute distress - Routine HEENT Exam Head: Present: normocephalic Eye: Present: conjunctival icterus - Routine Neck Exam Present: supple - Routine Respiratory Exam Present: CTA bilaterally. Absent: accessory muscle use - Routine Abdominal Exam Present: soft, normoactive bowel sounds, distended. Absent: tenderness, guarding, firm - Routine Skin Exam Present: dry, warm, jaundice - Detailed Neurological Exam: Coma Scale Eye Opening: Spontaneous Verbal Response: Oriented Motor Response: Obey commands Frederic Coma Scale Total: 15 - Routine Psychiatric Exam Present: normal affect, cooperative - Urinary Catheter Management Straight Cath placed during this visit: yes Reason for continuing: Not indwelling catheter Insertion date: 06/12/18 Insertion time: 19:10 <Gena Rausch - Last Filed: 06/16/18 10:32> Vital signs: Vital Signs 06/15/18 16:00 06/15/18 20:00 06/16/18 00:00 Temperature 98.0 F 98.1 F 98.3 F Pulse Rate 68 69 70 Respiratory Rate 17 17 17 Blood Pressure 137/68 123/66 119/59 L Pulse Oximetry 98 98 98 06/16/18 04:15 06/16/18 04:45 06/16/18 05:07 Temperature 98.7 F 98.3 F Pulse Rate 74 70 65 Respiratory Rate 17 16 18 Blood Pressure 129/69 124/70 119/58 L Pulse Oximetry 100 98 06/16/18 05:30 06/16/18 06:07 06/16/18 08:00 Temperature 97.8 F 97.8 F 98.9 F Pulse Rate 71 69 70 Respiratory Rate 18 18 18 Blood Pressure 117/69 115/61 116/67 Pulse Oximetry 99 99 Intake & Output 06/15/18 06/16/18 06/16/18 18:59 06:59 18:59 Intake Total 200 / 200 857 / 857 Output Total 300 / 300 Balance 200 / 200 557 / 557 Weight 120.5 kg Intake: IV 200 / 200 100 / 100 Flexbumin 25% Inj 100 ML @ 60 100 / 100 100 / 100 mls/hr IV.SIG Q12H [facility] Rx#: [id number] Rocephin Inj 1,000 MG In NS Inj 100 / 100 100 ML @ 200 mls/hr IV.SIG Q24H [facility] Rx#:[id number] Oral 240 / 240 Intake (Blood Product) Amt 517 / 517 Plasma Thawed 5 Day Cp2d Unit 308 / 308 [id number] Plasma Thawed 5 Day Cp2d Unit 209 / 209 [id number] Output: Urine 300 / 300 Other: Date of Last Bowel Movement 06/14/18 06/15/18 - Urinary Catheter Management Straight Cath placed during this visit: no <Yimi Blairan - Last Filed: 06/16/18 13:12> Results - Labs CBC & Chem 7: 06/15/18 05:34 06/15/18 05:34 Laboratory Results - last 24 hr 06/12/18 06/15/18 06/16/18 17:00 23:00 03:48 PT 21.3 H INR 2.1 MTS Gel Crossmatch See Detail Blood Bank Comment 06/16/18 07:46 PT 20.1 H INR 2.0 MTS Gel Crossmatch Blood Bank Comment Microbiology 06/12/18 19:05 Clean Catch Urine Urine Culture - Final Klebsiella pneumoniae <Gena Rausch - Last Filed: 06/16/18 10:32> - Labs CBC & Chem 7: 06/15/18 05:34 06/15/18 05:34 Laboratory Results - last 24 hr 06/12/18 06/15/18 06/16/18 17:00 23:00 03:48 PT 21.3 H INR 2.1 MTS Gel Crossmatch See Detail Blood Bank Comment 06/16/18 07:46 PT 20.1 H INR 2.0 MTS Gel Crossmatch Blood Bank Comment Microbiology 06/12/18 19:05 Clean Catch Urine Urine Culture - Final Klebsiella pneumoniae <JohnnieBrownlee - Last Filed: 06/16/18 13:12> Assessment and Plan - Plan 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 Patient first diagnosed with cirrhosis during hospitalization to [facility] in [place] in February. The [place] service twice at [place] since then, has been advised to follow-up outpatient for treatment of hepatitis C. Patient had an appointment in the office today, however was unable to attend because he has been admitted here since Tuesday. Patient presented to the hospital with altered mental status per and complains of lethargy for the past 3 days. Patient's states that he has been compliant with medication at home including lactulose. Ammonia was elevated on admission. At present, patient is oriented x3 and answers questions appropriately. He does remain lethargic. Also reports some nausea with 2 episodes of emesis, denies about emesis and coffee-ground emesis. Denies any hematochezia and melena. Patient denies any abdominal pain at this time, does note abdominal distention. Imaging revealed moderate amount of ascites. Was plan for paracentesis today, however was unable to do this due to coagulopathy. Patient received vitamin K today with plans to proceed with paracentesis tomorrow if INR corrects. 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 Coagulopathysecondary to above Thrombocytopenia-secondary to above 06/15/18 Liver cirrhosis/hepatitis C treatment hermelindo Total bilirubin 9.5 AST 117 ALT 61 alk phos 111(06/14/2018) ammonia 46 Coagulopathy INR 2.1, 2 units FFP ordered to be given at midnight on 06/16/2018, recheck INR in the a.m. with plans to proceed with paracentesis 06/16/2018 Liver cirrhosis/hepatitis C treatment hermelindo Total bilirubin 9.5 AST 117 ALT 61 alk phos 111 albumin 1.5. Discussed outpatient treatment for hepatitis C with patient spouse. She states they are working on insurance issues in order to proceed with same. Coagulopathy INR 2.0 .Will order 2 units of FFP to be given at 3 AM on 06/17/2018 and recheck INR in the a.m. Plan -Diet as tolerated -Continue diuretic medications -Monitor LFTs and coagulation -Monitor ammonia level -2 units FFP to be given at 3 AM, recheck INR -Vitamin K -Continue Protonix -Avoid hepatotoxins/nephrotoxins -Hepatitis C treatment as outpatient as discussed with patient and spouse -Supportive care -Further recommendations to follow based on patient findings and status This patient has been seen by myself and Dr. Blair and this note is written on his behalf - Attending Attestation Dr. Blair <Gena Rausch - Last Filed: 06/16/18 10:32> - Plan Over all feeling better. Paracentesis planned.Overall poor prognosis. <Kem Blair - Last Filed: 06/16/18 13:12>
[2018-06-16] MEDS ORDERED: Phytonadione Inj 10 MG/ML Vial SQ ONE (10:56)
--- NOTE | 2018-06-16 13:21 | P.PN ---
Subjective Interval history: Nursing denies any deterioration since last night. Patient himself says he feels little better today. Seen working with physical therapy ambulating with a walker down the hallway. says that the patient's itching has subsided. Physical Exam Vital signs: Vital Signs 06/15/18 16:00 06/15/18 20:00 06/16/18 00:00 Temperature 98.0 F 98.1 F 98.3 F Pulse Rate 68 69 70 Respiratory Rate 17 17 17 Blood Pressure 137/68 123/66 119/59 L Pulse Oximetry 98 98 98 06/16/18 04:15 06/16/18 04:45 06/16/18 05:07 Temperature 98.7 F 98.3 F Pulse Rate 74 70 65 Respiratory Rate 17 16 18 Blood Pressure 129/69 124/70 119/58 L Pulse Oximetry 100 98 06/16/18 05:30 06/16/18 06:07 06/16/18 08:00 Temperature 97.8 F 97.8 F 98.9 F Pulse Rate 71 69 70 Respiratory Rate 18 18 18 Blood Pressure 117/69 115/61 116/67 Pulse Oximetry 99 99 Intake & Output 06/15/18 06/16/18 06/16/18 18:59 06:59 18:59 Intake Total 200 / 200 857 / 857 100 / 100 Output Total 300 / 300 Balance 200 / 200 557 / 557 100 / 100 Weight 120.5 kg Intake: IV 200 / 200 100 / 100 100 / 100 Flexbumin 25% Inj 100 ML @ 60 100 / 100 100 / 100 mls/hr IV.SIG Q12H [facility] Rx#: [id number] Rocephin Inj 1,000 MG In NS Inj 100 / 100 100 / 100 100 ML @ 200 mls/hr IV.SIG Q24H [facility] Rx#:[id number] Oral 240 / 240 Intake (Blood Product) Amt 517 / 517 Plasma Thawed 5 Day Cp2d Unit 308 / 308 [id number] Plasma Thawed 5 Day Cp2d Unit 209 / 209 [id number] Output: Urine 300 / 300 Other: Date of Last Bowel Movement 06/14/18 06/15/18 Narrative: Scleral icterus evident Relatively unchanged abdominal distention since yesterday Clear lungs bilaterally - Urinary Catheter Management Straight Cath placed during this visit: yes Reason for continuing: Not indwelling catheter Insertion date: 06/12/18 Insertion time: 19:10 Results - Labs CBC & Chem 7: 06/15/18 05:34 06/15/18 05:34 Laboratory Results - last 24 hr 06/12/18 06/15/18 06/16/18 17:00 23:00 03:48 PT 21.3 H INR 2.1 MTS Gel Crossmatch See Detail Blood Bank Comment 06/16/18 07:46 PT 20.1 H INR 2.0 MTS Gel Crossmatch Blood Bank Comment Microbiology 06/12/18 19:05 Clean Catch Urine Urine Culture - Final Klebsiella pneumoniae Assessment and Plan - Plan 63-year-old black male admitted for acute renal failure, metabolic encephalopathy. Hx of Cirrhosis. Other metabolic causes have been ruled out for his encephalopathy Hepatic encephalopathy Slowed mentation is evident, likely secondary to hepatic failure and azotemia Continue treating underlying problems of hepatic failure and acute renal failure -zinc, continue lactulose and rifaximin -CT head is negative for any acute causes -Klebsiella growing on urine specimen, Rocephin Hepatitis C/cirrhosis/ascites/hyperbilirubinemia -Paracentesis planned for this afternoon, status post fresh frozen plasma and vitamin K administration - Questran, Benadryl - Coreg, spironolactone - Meld score greater than 30, do not anticipate patient is a feasible transplant candidate given his hepatitis C, I explained to the right prognosis/ mortality of around 50% in around 3 months. GI has explained to the patient little to no likelihood of a liver transplant Hepatorenal syndrome -Likely secondary to dehydration 2/2 lactulose and/or third spacing with cirrhosis -Do not anticipate further significant improvement secondary to liver disease UTI Rocephin as above generalized weakness -Likely multifactorial including metabolic encephalopathy element PT/OT/ST Symptomatic anemia -likely anemia of chronic dx, stable h/h s/p transfusion Atrial fibrillation -Rate controlled, on coreg at this time -Patient not on systemic anticoagulation due to bleeding risk
[2018-06-16] MEDS ORDERED: Albumin Human 25% Inj 200 ML IV.SIG ONE (15:30)
--- NOTE | 2018-06-16 16:25 | US ---
EXAM DATE: 06/16/2018 12:00 AM EDT AGE/SEX: 63 years / Male INDICATIONS: Ascites. CLINICAL DATA: This is the patient's subsequent encounter. Patient reports that signs and symptoms h ave been present for 1 month and indicates a pain score of 0/10. MEDICAL/SURGICAL HISTORY: Cirrhosis. Hepatitis C. Carcinoma, prostatic. Psoriasis. AFib. Asc ites. . Prostate biopsy. Paracentesis. [place] [facility] [place]. . FLUID: Total volume of 8,400 cc of clear, yellow fluid was removed. Fluid was discarded. Paracentesis was th erapeutic only. . . TECHNIQUE: Ultrasound guidance for abdominal paracentesis. Paracentesis. The risks, benefits, and alternatives to ultrasound guided paracentesis were explained to the patient in detail including the risk of bleeding and infection. Written and verbal informed consent was obt ained. With the patient on the ultrasound table, ultrasound imaging was used to select the most appropriate approach for paracentesis. Overlying skin was prepped and draped in the usual sterile fashion and wi th a local anesthetic, a dermatotomy was made with an 11 blade scalpel. A 6 [place] [id number] ca theter was introduced into the peritoneal cavity and fluid was collected. Post procedure scanning reveals no hematoma or other complication. The patient tolerated the procedu re well and left the ultrasound suite in stable condition. FINDINGS: Adequate fluid for paracentesis. CONCLUSION: 1. Uncomplicated paracentesis. Electronically signed by: Dion Glover MD 06/16/2018 4:24 PM EDT
--- NOTE | 2018-06-16 17:24 | P.PNNP ---
Subjective Interval history: Patient is tired Physical Exam Vital signs: Vital Signs 06/15/18 20:00 06/16/18 00:00 06/16/18 04:15 Temperature 98.1 F 98.3 F 98.7 F Pulse Rate 69 70 74 Respiratory Rate 17 17 17 Blood Pressure 123/66 119/59 L 129/69 Pulse Oximetry 98 98 100 06/16/18 04:45 06/16/18 05:07 06/16/18 05:30 Temperature 98.3 F 97.8 F Pulse Rate 70 65 71 Respiratory Rate 16 18 18 Blood Pressure 124/70 119/58 L 117/69 Pulse Oximetry 98 06/16/18 06:07 06/16/18 08:00 06/16/18 12:00 Temperature 97.8 F 98.9 F 98.6 F Pulse Rate 69 70 70 Respiratory Rate 18 18 18 Blood Pressure 115/61 116/67 108/62 Pulse Oximetry 99 99 98 06/16/18 13:46 06/16/18 15:10 06/16/18 16:02 Temperature 98.7 F 98.7 F 98.4 F Pulse Rate 65 70 57 L Respiratory Rate 18 18 18 Blood Pressure 136/75 121/65 126/59 L Pulse Oximetry 99 99 100 Intake & Output 06/15/18 06/16/18 06/16/18 18:59 06:59 18:59 Intake Total 200 / 200 857 / 857 1060 / 1060 Output Total 300 / 300 500 / 500 Balance 200 / 200 557 / 557 560 / 560 Weight 120.5 kg Intake: IV 200 / 200 100 / 100 100 / 100 Flexbumin 25% Inj 100 ML @ 60 100 / 100 100 / 100 mls/hr IV.SIG Q12H [facility] Rx#: [id number] Rocephin Inj 1,000 MG In NS Inj 100 / 100 100 / 100 100 ML @ 200 mls/hr IV.SIG Q24H [facility] Rx#:[id number] Oral 240 / 240 960 / 960 Intake (Blood Product) Amt 517 / 517 Plasma Thawed 5 Day Cp2d Unit 308 / 308 [id number] Plasma Thawed 5 Day Cp2d Unit 209 / 209 [id number] Output: Urine 300 / 300 500 / 500 Other: Date of Last Bowel Movement 06/14/18 06/15/18 Narrative: Scleral icterus evident Relatively unchanged abdominal distention since yesterday Clear lungs bilaterally - Urinary Catheter Management Straight Cath placed during this visit: yes Reason for continuing: Not indwelling catheter Insertion date: 06/12/18 Insertion time: 19:10 Assessment and Plan - Assessment (1) Acute kidney injury Code(s): N17.9 - Acute kidney failure, unspecified Status: Acute (2) Hyperammonemia Code(s): E72.20 - Disorder of urea cycle metabolism, unspecified Status: Acute (3) Hepatic encephalopathy Code(s): K72.90 - Hepatic failure, unspecified without coma Status: Acute (4) Coagulopathy Code(s): D68.9 - Coagulation defect, unspecified Status: Acute - Plan Patient with hepatorenal syndrome we will check your urine sodium and creatinine , on albumin 25 g IV every 12 hourly On treatment for hepatic encephalopathy total bilirubin still high creatinine 2.5 had paracentesis fluid removed Patient has improvement in creatinine He has hepatic encephalopathy, continue with treatment of cirrhosis of the liver UTI on ceftriaxone Prognosis has very poor Avoid nephrotoxic agents Creatinine remains elevated prognosis is poor
[2018-06-17] MEDS: Albumin Human 25% Inj 100 ML IV.SIG SCH ×2 (04:15→14:22)
[2018-06-17] MEDS: Cholestyramine Light 4 GM Packet PO SCH ×4 (08:41→20:14)
[2018-06-17] MEDS: Spironolactone 50 MG Tablet PO SCH (08:42)
[2018-06-17] MEDS: rifAXIMin 550 MG Tablet PO SCH ×2 (08:42→20:13)
[2018-06-17] MEDS: Furosemide 20 MG Tablet PO SCH ×2 (08:42→18:21)
--- NOTE | 2018-06-17 10:44 | P.PNNP ---
Subjective Interval history: Patient is alert, not in distress. Physical Exam Vital signs: Vital Signs 06/16/18 12:00 06/16/18 13:46 06/16/18 15:10 Temperature 98.6 F 98.7 F 98.7 F Pulse Rate 70 65 70 Respiratory Rate 18 18 18 Blood Pressure 108/62 136/75 121/65 Pulse Oximetry 98 99 99 06/16/18 16:02 06/16/18 20:00 06/17/18 00:27 Temperature 98.4 F 98.5 F 98.6 F Pulse Rate 57 L 68 70 Respiratory Rate 18 19 18 Blood Pressure 126/59 L 116/60 114/57 L Pulse Oximetry 100 100 100 06/17/18 08:00 Temperature 98.7 F Pulse Rate 78 Respiratory Rate 19 Blood Pressure 118/58 L Pulse Oximetry 98 Intake & Output 06/16/18 06/17/18 06/17/18 18:59 06:59 18:59 Intake Total 1060 / 1060 300 / 300 Output Total 500 / 500 800 / 800 Balance 560 / 560 -500 / -500 Intake: IV 100 / 100 300 / 300 Flexbumin 25% Inj 100 ML @ 60 300 / 300 mls/hr IV.SIG Q12H [facility] Rx#: [id number] Rocephin Inj 1,000 MG In NS Inj 100 / 100 100 ML @ 200 mls/hr IV.SIG Q24H SH[facility]NA Rx#:[id number] Oral 960 / 960 Output: Urine 500 / 500 800 / 800 Other: Date of Last Bowel Movement 06/15/18 06/15/18 # Bowel Movements 2 Narrative: Scleral icterus evident Relatively unchanged abdominal distention since yesterday Clear lungs bilaterally - Urinary Catheter Management Straight Cath placed during this visit: yes Reason for continuing: Not indwelling catheter Insertion date: 06/12/18 Insertion time: 19:10 Assessment and Plan - Assessment (1) Acute kidney injury Code(s): N17.9 - Acute kidney failure, unspecified Status: Acute (2) Hyperammonemia Code(s): E72.20 - Disorder of urea cycle metabolism, unspecified Status: Acute (3) Hepatic encephalopathy Code(s): K72.90 - Hepatic failure, unspecified without coma Status: Acute (4) Coagulopathy Code(s): D68.9 - Coagulation defect, unspecified Status: Acute - Plan Patient with hepatorenal syndrome we will check your urine sodium and creatinine , on albumin 25 g IV every 12 hourly On treatment for hepatic encephalopathy total bilirubin still high creatinine 2.5 had paracentesis fluid removed Patient has no new BMP, last Creatinine was stable He has hepatic encephalopathy, continue with treatment of cirrhosis of the liver UTI on ceftriaxone Prognosis has very poor Avoid nephrotoxic agents Follow the urine out put and BMP.
--- NOTE | 2018-06-17 14:42 | P.PN ---
Subjective Interval history: Nursing denies any deterioration since last night. Has a condom cath on. does report that he had his paracentesis yesterday, report indicates 8.4 L removed. Physical Exam Vital signs: Vital Signs 06/16/18 15:10 06/16/18 16:02 06/16/18 20:00 Temperature 98.7 F 98.4 F 98.5 F Pulse Rate 70 57 L 68 Respiratory Rate 18 18 19 Blood Pressure 121/65 126/59 L 116/60 Pulse Oximetry 99 100 100 06/17/18 00:27 06/17/18 08:00 06/17/18 12:00 Temperature 98.6 F 98.7 F 98.6 F Pulse Rate 70 78 68 Respiratory Rate 18 19 17 Blood Pressure 114/57 L 118/58 L 120/59 L Pulse Oximetry 100 98 99 Intake & Output 06/16/18 06/17/18 06/17/18 18:59 06:59 18:59 Intake Total 1060 / 1060 300 / 300 100 / 100 Output Total 500 / 500 800 / 800 Balance 560 / 560 -500 / -500 100 / 100 Intake: IV 100 / 100 300 / 300 100 / 100 Flexbumin 25% Inj 100 ML @ 60 300 / 300 mls/hr IV.SIG Q12H [facility]OS[facility] Rx#: [id number] Rocephin Inj 1,000 MG In NS Inj 100 / 100 100 / 100 100 ML @ 200 mls/hr IV.SIG Q24H [facility] Rx#:[id number] Oral 960 / 960 Output: Urine 500 / 500 800 / 800 Other: Date of Last Bowel Movement 06/15/18 06/15/18 # Bowel Movements 2 Narrative: Abdomen is much improved in distention, only minimally distended at this point, soft, nontender Alert and oriented, more pleasant spirits today Unlabored breathing - Urinary Catheter Management Straight Cath placed during this visit: yes Reason for continuing: Not indwelling catheter Insertion date: 06/12/18 Insertion time: 19:10 Results - Labs CBC & Chem 7: 06/17/18 18:50 06/17/18 18:50 - Imaging Impressions Paracentesis Ultrasound 06/16/18 00:00 CONCLUSION: 1. Uncomplicated paracentesis. Assessment and Plan - Plan 63-year-old black male admitted for acute renal failure, metabolic encephalopathy. Hx of Cirrhosis. Other metabolic causes have been ruled out for his encephalopathy. CT head is negative, B12 was unremarkable, electrolytes otherwise unremarkable. Overall meld score is 33 giving about a 50 % mortality in about 3 months. Patient and are aware of this prognosis. Hepatic encephalopathy -Improved since day 1 of admission Slowed mentation is evident, likely secondary to hepatic failure and azotemia Continue treating underlying problems of hepatic failure and acute renal failure -zinc, continue lactulose and rifaximin Hepatitis C/cirrhosis/ascites/hyperbilirubinemia -Status post paracentesis with 8.4 L removed on 06/16 - Questran, Benadryl - Coreg, spironolactone -Meld scores greater than 30, poor prognosis Hepatorenal syndrome -Likely secondary to dehydration 2/2 lactulose and/or third spacing with cirrhosis -Do not anticipate further significant improvement secondary to liver disease Klebsiella UTI Rocephin as above generalized weakness -Likely multifactorial including metabolic encephalopathy element PT/OT/ST Symptomatic anemia -likely anemia of chronic dx, stable h/h s/p transfusion Atrial fibrillation -Rate controlled, on coreg at this time -Patient not on systemic anticoagulation due to bleeding risk Addendum: RN reports pulse >140s w/ acute onset abd pain; soft reportedly soft and ND. 6/[address] abd ordered.
[2018-06-17] MEDS ORDERED: Morphine Sulfate Inj 2 MG/ML Vial IV.PUSH ONE (17:59)
[2018-06-17 19:18] LABS: Baso % (Auto) 0.8 % (0.0-2.0); Eos # (Auto) 0.1 th/mm3 (0.0-0.4); Eos % (Auto) 3.5 % (0.0-4.0); Hematocrit 21.1 % (39.0-51.0); Hemoglobin 7.2 gm/dL (13.0-17.0); Lymph # (Auto) 0.5 th/mm3 (1.0-4.8); Mean Corpuscular Hemoglobin 36.7 pg (27.0-34.0); Mean Platelet Volume 8.9 fL (7.0-11.0); Mono # (Auto) 0.5 th/mm3 (0.0-0.9); Mono % (Auto) 14.2 % (0.0-8.0); Neut # (Auto) 2.4 th/mm3 (1.8-7.7); Neut % (Auto) 67.5 % (16.0-70.0); Platelet Count 56 th/mm3 (150-450); Red Blood Count 1.95 mil/mm3 (4.50-5.90); Red Cell Distribution Width 16.7 % (11.6-17.2); White Blood Count 3.6 th/mm3 (4.0-11.0)
[2018-06-17 19:43] LABS: Alanine Aminotransferase 40 U/L (12-78); Albumin 2.4 g/dL (3.4-5.0); Alkaline Phosphatase 83 U/L (45-117); Anion Gap 8 meq/L (5-15); Aspartate Aminotransferase 68 U/L (15-37); Blood Urea Nitrogen 25 mg/dL (7-18); Calcium 8.8 mg/dL (8.5-10.1); Carbon Dioxide 23.9 meq/L (21.0-32.0); Chloride 110 meq/L (98-107); Glomerular Filtration Rate 39 mL/min (>89); Glucose,Random 154 mg/dL (74-106); Potassium 4.4 meq/L (3.5-5.1); Sodium 142 meq/L (136-145); Total Protein 6.9 g/dL (6.4-8.2)
[2018-06-17] MEDS ORDERED: Diatrizoate Meglum/Diatrizoate Sod Liq 9 ML UDC PO ONE (20:00)
[2018-06-17 20:03] LABS: Ovalocytes 1+; Platelet Morphology Normal (Normal)
--- NOTE | 2018-06-17 21:31 | P.PNGI ---
Subjective Interval history: Sleepy, arousable . at bedside.Decrease appetitive.No nausea, vomiting .S/p paracentesis yesterday ,await results Physical Exam Vital signs: Vital Signs 06/17/18 00:27 06/17/18 08:00 06/17/18 12:00 Temperature 98.6 F 98.7 F 98.6 F Pulse Rate 70 66 66 Respiratory Rate 18 19 17 Blood Pressure 114/57 L 118/58 L 120/59 L Pulse Oximetry 100 98 99 06/17/18 16:00 06/17/18 18:19 06/17/18 20:14 Temperature 98.9 F 98.5 F Pulse Rate 77 69 Respiratory Rate 19 18 17 Blood Pressure 125/64 124/64 Pulse Oximetry 97 99 Intake & Output 06/17/18 06/17/18 06/18/18 06:59 18:59 06:59 Intake Total 300 / 300 700 / 700 Output Total 800 / 800 250 / 250 Balance -500 / -500 450 / 450 Intake: IV 300 / 300 200 / 200 Flexbumin 25% Inj 100 ML @ 60 300 / 300 100 / 100 mls/hr IV.SIG Q12H [facility]OS[facility]NA Rx#: [id number] Rocephin Inj 1,000 MG In NS Inj 100 / 100 100 ML @ 200 mls/hr IV.SIG Q24H [facility]OSHANA Rx#:[id number] Oral 500 / 500 Output: Urine 800 / 800 250 / 250 Other: Date of Last Bowel Movement 06/15/18 06/16/18 # Bowel Movements 2 1 - Constitutional no acute distress, somnolent - Routine HEENT Exam Head: Present: normocephalic Eye: Present: conjunctival icterus ENT: Present: mucous membranes moist - Routine Neck Exam Present: supple - Routine Respiratory Exam Comments: normal - Routine Cardiovascular Exam Present: S1, S2 - Routine Abdominal Exam Present: soft, distended - Routine Extremities Exam Present: edema, pulses intact - Routine Neurological Exam Present: alert, oriented X3 - Detailed Neurological Exam: Coma Scale Eye Opening: Spontaneous - Routine Psychiatric Exam Present: normal affect - Urinary Catheter Management Straight Cath placed during this visit: yes Reason for continuing: Not indwelling catheter Insertion date: 06/12/18 Insertion time: 19:10 Results - Labs CBC & Chem 7: 06/17/18 18:50 06/17/18 18:50 Laboratory Results - last 24 hr 10/13/18 10/13/18 18:50 18:50 WBC 3.6 L RBC 1.95 L Hgb 7.2 L Hct 21.1 L MCV 108.0 H MCH 36.7 H MCHC 34.0 RDW 16.7 Plt Count 56 L MPV 8.9 Prelim Diff (Auto) Slide review pending Neut % (Auto) 67.5 Lymph % (Auto) 14.0 [place] % (Auto) 14.2 H Eos % (Auto) 3.5 Baso % (Auto) 0.8 Neut # (Auto) 2.4 Lymph # (Auto) 0.5 L [place] # (Auto) 0.5 Eos # (Auto) 0.1 Baso # (Auto) 0.0 WBC Differential . Diff Scan Auto diff confirmed Differential Comment . Platelet Estimate Low L Platelet Morphology Normal Ovalocytes 1+ H Sodium 142 Potassium 4.4 Chloride 110 H Carbon Dioxide 23.9 Anion Gap 8 BUN 25 H Creatinine 2.10 H Estimated GFR 39 L Random Glucose 154 H Calcium 8.8 Total Bilirubin 7.2 H AST 68 H ALT 40 Alkaline Phosphatase 83 Total Protein 6.9 D Albumin 2.4 L Assessment and Plan - Attending Attestation Liver cirrhosis secondary hepatitis c Hepatic encephalopathy -improving Ascites s/p paracentesis await results Recommendations Continue Lactulose/Rifaximin fu ascitic results daily weight strict i/o charting fu liver work-up poor prognosis hep c rx op
--- NOTE | 2018-06-17 22:50 | CT ---
EXAM DATE: 06/17/2018 9:46 PM EDT AGE/SEX: 63 years / Male INDICATIONS: Abdominal pain. CLINICAL DATA: This is the patient's initial encounter. Patient reports that signs and symptoms have been present for 2 days and indicates a pain score of 6/10. MEDICAL/SURGICAL HISTORY: Cirrhosis. Hepatitis C. Carcinoma, prostatic. Atrial fibrillation None. RADIATION DOSE: 20.85 CTDI (mGy) COMPARISON: No prior exams available for comparison. TECHNIQUE: Multiple contiguous axial images were obtained through the abdomen. Images were obtained using multiple row detector helical technique. Using automated exposure control and adjustment of the mA and/or kV according to patient size, radiation dose was kept as low as reasonably achievable to o btain optimal diagnostic quality images. DICOM format image data is available electronically for rev iew and comparison. FINDINGS: Lower Lungs: The visualized lower lungs are clear. Liver: Diffusely heterogeneous with diffusely nodular contour of the capsule indicating cirrhosis. No focal masses identified. Small gallstone in the gallbladder. Gallbladder bladder is collapsed. Spleen: Homogeneous density without enlargement. Pancreas: Unremarkable without mass or calcification. Kidneys: Within normal limits. Adrenal Glands: Unremarkable. Aorta: The aorta and proximal iliac vessels are grossly unremarkable without aneurysmal dilation. Bowel/Mesentery: No evidence of bowel dilatation. No free air. Moderate amount of ascites in all 4 q uadrants of the abdomen. Appendix within normal limits. Abdominal Wall: Intact. Retroperitoneum: No evidence of adenopathy in the retrocrural, para-aortic, or deep pelvic regions. Bladder: Contours are smooth. Reproductive Organs: Metallic densities in the prostate bed. Inguinal: The inguinal region is unremarkable without evidence of adenopathy. Bony Structures: Unremarkable. CONCLUSION: 1. Cirrhosis. 2. Moderate amount ascites. 3. Small gallstone in the gallbladder. Gallbladder collapsed. Electronically signed by: Tim Ruiz MD 06/17/2018 10:49 PM EDT
[2018-06-18] MEDS: Albumin Human 25% Inj 100 ML IV.SIG SCH ×2 (03:32→14:49)
[2018-06-18] MEDS: Cholestyramine Light 4 GM Packet PO SCH ×4 (08:28→21:13)
[2018-06-18] MEDS: Spironolactone 50 MG Tablet PO SCH (08:29)
[2018-06-18] MEDS: rifAXIMin 550 MG Tablet PO SCH ×2 (08:29→21:13)
[2018-06-18] MEDS: Furosemide 20 MG Tablet PO SCH ×2 (08:33→18:03)
--- NOTE | 2018-06-18 09:12 | P.PNNP ---
Subjective Interval history: Patient remain awake and confused, not in distress. Physical Exam Vital signs: Vital Signs 06/17/18 12:00 06/17/18 16:00 06/17/18 18:19 Temperature 98.6 F 98.9 F Pulse Rate 66 77 Respiratory Rate 17 19 18 Blood Pressure 120/59 L 125/64 Pulse Oximetry 99 97 06/17/18 20:14 06/17/18 20:20 06/18/18 00:00 Temperature 98.5 F Pulse Rate 69 74 65 Respiratory Rate 17 Blood Pressure 124/64 Pulse Oximetry 99 06/18/18 00:02 06/18/18 04:00 06/18/18 04:32 Temperature 98.1 F 98.7 F Pulse Rate 70 70 71 Respiratory Rate 17 21 Blood Pressure 127/61 120/57 L Pulse Oximetry 99 96 Intake & Output 06/17/18 06/18/18 06/18/18 18:59 06:59 18:59 Intake Total 700 / 700 680 / 680 Output Total 250 / 250 1000 / 1000 Balance 450 / 450 -320 / -320 Weight 121 kg Intake: IV 200 / 200 100 / 100 Flexbumin 25% Inj 100 ML @ 60 100 / 100 100 / 100 mls/hr IV.SIG Q12H [facility] Rx#: [id number] Rocephin Inj 1,000 MG In NS Inj 100 / 100 100 ML @ 200 mls/hr IV.SIG Q24H [facility] Rx#:[id number] Oral 500 / 500 580 / 580 Output: Urine 250 / 250 1000 / 1000 Other: Date of Last Bowel Movement 06/16/18 06/17/18 # Bowel Movements 1 Narrative: Abdomen is much improved in distention, only minimally distended at this point, soft, nontender Alert and oriented, more pleasant spirits today Unlabored breathing Lungs, Bilateral basal rales and few rhonchi. Ext. mild leg edema. - Urinary Catheter Management Straight Cath placed during this visit: yes Reason for continuing: Not indwelling catheter Insertion date: 06/12/18 Insertion time: 19:10 Assessment and Plan - Assessment (1) Acute kidney injury Code(s): N17.9 - Acute kidney failure, unspecified Status: Acute (2) Hyperammonemia Code(s): E72.20 - Disorder of urea cycle metabolism, unspecified Status: Acute (3) Hepatic encephalopathy Code(s): K72.90 - Hepatic failure, unspecified without coma Status: Acute (4) Coagulopathy Code(s): D68.9 - Coagulation defect, unspecified Status: Acute - Plan Patient with hepatorenal syndrome we will check your urine sodium and creatinine , on albumin 25 g IV every 12 hourly On treatment for hepatic encephalopathy total bilirubin still high creatinine 2.5 had paracentesis fluid removed Patient has no new BMP, last Creatinine was stable at 2.1 He has hepatic encephalopathy, continue with treatment of cirrhosis of the liver UTI on ceftriaxone Avoid nephrotoxic agents Follow the urine out put and BMP. D/W the at bed side.
--- NOTE | 2018-06-18 12:52 | P.PN ---
Subjective Interval history: Nursing denies any deterioration since last night. Apparently after the patient received morphine his pulse normalized and his abdominal pain substantially subsided. No acute issues at this time. Physical Exam Vital signs: Vital Signs 06/17/18 16:00 06/17/18 18:19 06/17/18 20:14 Temperature 98.9 F 98.5 F Pulse Rate 77 69 Respiratory Rate 19 18 17 Blood Pressure 125/64 124/64 Pulse Oximetry 97 99 06/17/18 20:20 06/18/18 00:00 06/18/18 00:02 Temperature 98.1 F Pulse Rate 74 65 70 Respiratory Rate 17 Blood Pressure 127/61 Pulse Oximetry 99 06/18/18 04:00 06/18/18 04:32 06/18/18 12:00 Temperature 98.7 F 98.3 F Pulse Rate 70 71 69 Respiratory Rate 21 18 Blood Pressure 120/57 L 121/67 Pulse Oximetry 96 100 Intake & Output 06/17/18 06/18/18 06/18/18 18:59 06:59 18:59 Intake Total 700 / 700 680 / 680 Output Total 250 / 250 1000 / 1000 Balance 450 / 450 -320 / -320 Weight 121 kg Intake: IV 200 / 200 100 / 100 Flexbumin 25% Inj 100 ML @ 60 100 / 100 100 / 100 mls/hr IV.SIG Q12H [facility] Rx#: [id number] Rocephin Inj 1,000 MG In NS Inj 100 / 100 100 ML @ 200 mls/hr IV.SIG Q24H [facility] Rx#:[id number] Oral 500 / 500 580 / 580 Output: Urine 250 / 250 1000 / 1000 Other: Date of Last Bowel Movement 06/16/18 06/17/18 # Bowel Movements 1 Narrative: Abdomen soft, nontender, minimal distention Unlabored breathing No acute distress - Urinary Catheter Management Straight Cath placed during this visit: yes Reason for continuing: Not indwelling catheter Insertion date: 06/12/18 Insertion time: 19:10 Results - Labs CBC & Chem 7: 06/17/18 18:50 06/17/18 18:50 Laboratory Results - last 24 hr 06/17/18 06/17/18 18:50 18:50 WBC 3.6 L RBC 1.95 L Hgb 7.2 L Hct 21.1 L MCV 108.0 H MCH 36.7 H MCHC 34.0 RDW 16.7 Plt Count 56 L MPV 8.9 Prelim Diff (Auto) Slide review pending Neut % (Auto) 67.5 Lymph % (Auto) 14.0 [place] % (Auto) 14.2 H Eos % (Auto) 3.5 Baso % (Auto) 0.8 Neut # (Auto) 2.4 Lymph # (Auto) 0.5 L [place] # (Auto) 0.5 Eos # (Auto) 0.1 Baso # (Auto) 0.0 WBC Differential . Diff Scan Auto diff confirmed Differential Comment . Platelet Estimate Low L Platelet Morphology Normal Ovalocytes 1+ H Sodium 142 Potassium 4.4 Chloride 110 H Carbon Dioxide 23.9 Anion Gap 8 BUN 25 H Creatinine 2.10 H Estimated GFR 39 L Random Glucose 154 H Calcium 8.8 Total Bilirubin 7.2 H AST 68 H ALT 40 Alkaline Phosphatase 83 Total Protein 6.9 D Albumin 2.4 L - Imaging Impressions Abdomen/Pelvis CT 06/17/18 17:58 CONCLUSION: 1. Cirrhosis. 2. Moderate amount ascites. 3. Small gallstone in the gallbladder. Gallbladder collapsed. Assessment and Plan - Plan 63-year-old black male admitted for acute renal failure, metabolic encephalopathy. Hx of Cirrhosis. Other metabolic causes have been ruled out for his encephalopathy. CT head is negative, B12 was unremarkable, electrolytes otherwise unremarkable. Overall meld score is 33 giving about a 50 % mortality in about 3 months. Patient and are aware of this prognosis. Acute abdominal painresolved CT abdomen from yesterday is unremarkable for any acute findings. Likely was due to hepatic capsule strain. Hepatic encephalopathy -Improved since day 1 of admission Slowed mentation is evident, likely secondary to hepatic failure and azotemia Continue treating underlying problems of hepatic failure and acute renal failure -zinc, continue lactulose and rifaximin Hepatitis C/cirrhosis/ascites/hyperbilirubinemia -Status post paracentesis with 8.4 L removed on 06/16 - Questran, Benadryl - Coreg, spironolactone -Meld scores greater than 30, poor prognosis Hepatorenal syndrome -Likely secondary to dehydration 2/2 lactulose and/or third spacing with cirrhosis -Do not anticipate further significant improvement secondary to liver disease Klebsiella UTI Rocephin as above generalized weakness -Likely multifactorial including metabolic encephalopathy element PT/OT/ST Symptomatic anemia -likely anemia of chronic dx, stable h/h s/p transfusion Atrial fibrillation -Rate controlled, on coreg at this time -Patient not on systemic anticoagulation due to bleeding risk Discharge Planning: Pending placement versus reconditioning to be able to go home safe
--- NOTE | 2018-06-18 14:27 | ECG ---
Date Performed: 06/17/2018 Time Performed: 18:26:01 PTAGE: 63 years EKG: Sinus rhythm WITH PACS LEFT AXIS DEVIATION LOW VOLTAGE IN PRECORDIAL LEADS Compared to previous tracing, the ecto pic atrial rhythm has been replaced with sinus rhythm with PACs. ABNORMAL ECG PREVIOUS TRACING : 05/14/2018 16.18 DOCTOR: Juliano Lozano Interpretating Date/Time 06/18/2018 14:26:29
--- NOTE | 2018-06-18 16:43 | P.PNGI ---
Subjective Interval history: Pt is resting in bed, having difficulties staying awake, accompanied by family, denies nausea or vomiting, no abd pain, no bleeding. Physical Exam Vital signs: Vital Signs 06/17/18 18:19 06/17/18 20:14 06/17/18 20:20 Temperature 98.5 F Pulse Rate 69 74 Respiratory Rate 18 17 Blood Pressure 124/64 Pulse Oximetry 99 06/18/18 00:00 06/18/18 00:02 06/18/18 04:00 Temperature 98.1 F Pulse Rate 65 70 70 Respiratory Rate 17 Blood Pressure 127/61 Pulse Oximetry 99 06/18/18 04:32 06/18/18 12:00 06/18/18 16:00 Temperature 98.7 F 98.3 F 98.5 F Pulse Rate 71 69 65 Respiratory Rate 21 18 18 Blood Pressure 120/57 L 121/67 122/77 Pulse Oximetry 96 100 99 Intake & Output 06/17/18 06/18/18 06/18/18 18:59 06:59 18:59 Intake Total 700 / 700 680 / 680 100 / 100 Output Total 250 / 250 1000 / 1000 Balance 450 / 450 -320 / -320 100 / 100 Weight 121 kg Intake: IV 200 / 200 100 / 100 100 / 100 Flexbumin 25% Inj 100 ML @ 60 100 / 100 100 / 100 mls/hr IV.SIG Q12H [facility] Rx#: [id number] Rocephin Inj 1,000 MG In NS Inj 100 / 100 100 / 100 100 ML @ 200 mls/hr IV.SIG Q24H [facility]NA Rx#:[id number] Oral 500 / 500 580 / 580 Output: Urine 250 / 250 1000 / 1000 Other: Date of Last Bowel Movement 06/16/18 06/17/18 # Bowel Movements 1 - Constitutional no acute distress - Routine HEENT Exam Head: Present: normocephalic - Routine Respiratory Exam Present: CTA bilaterally - Routine Cardiovascular Exam Present: RRR - Routine Abdominal Exam Present: soft, normoactive bowel sounds, organomegaly. Absent: tenderness, distended - Routine Extremities Exam Absent: cyanosis - Routine Skin Exam Present: intact, dry - Routine Neurological Exam Present: alert - Urinary Catheter Management Straight Cath placed during this visit: yes Reason for continuing: Not indwelling catheter Insertion date: 06/12/18 Insertion time: 19:10 Results - Labs CBC & Chem 7: 06/17/18 18:50 06/17/18 18:50 Laboratory Results - last 24 hr 06/17/18 06/17/18 18:50 18:50 WBC 3.6 L RBC 1.95 L Hgb 7.2 L Hct 21.1 L MCV 108.0 H MCH 36.7 H MCHC 34.0 RDW 16.7 Plt Count 56 L MPV 8.9 Prelim Diff (Auto) Slide review pending Neut % (Auto) 67.5 Lymph % (Auto) 14.0 [place] % (Auto) 14.2 H Eos % (Auto) 3.5 Baso % (Auto) 0.8 Neut # (Auto) 2.4 Lymph # (Auto) 0.[address] [place] # (Auto) 0.5 Eos # (Auto) 0.1 Baso # (Auto) 0.0 WBC Differential . Diff Scan Auto diff confirmed Differential Comment . Platelet Estimate Low L Platelet Morphology Normal Ovalocytes 1+ H Sodium 142 Potassium 4.4 Chloride 110 H Carbon Dioxide 23.9 Anion Gap 8 BUN 25 H Creatinine 2.10 H Estimated GFR 39 L Random Glucose 154 H Calcium 8.8 Total Bilirubin 7.2 H AST 68 H ALT 40 Alkaline Phosphatase 83 Total Protein 6.9 D Albumin 2.4 L - Imaging Impressions Abdomen/Pelvis CT 06/17/18 17:58 CONCLUSION: 1. Cirrhosis. 2. Moderate amount ascites. 3. Small gallstone in the gallbladder. Gallbladder collapsed. Assessment and Plan - Plan - Liver cirrhosis secondary hepatitis c, tx naive Abdomen/Pelvis CT 06/17/18 1. Cirrhosis. 2. Moderate amount ascites. 3. Small gallstone in the gallbladder. Gallbladder collapsed. 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 - Coagulopathy INr 2.0 - Hepatic encephalopathy -improving, on Xifaxan and Lactulose - Ascites s/p paracentesis on 06/16/18 with 8400 ml of fluids removed On Lasix 20 mg BID, Aldactone 100 mg daily - Anemia- no bleeding reported, hgb seems to be stable Plan: Low salt diet Continue Lactulose/Rifaximin Cont. Lasix and , Aldactone poor prognosis hep c rx op Monitor labs Pt seen and examined by Dr. Escobar and myself
[2018-06-19] MEDS: Albumin Human 25% Inj 100 ML IV.SIG SCH ×2 (02:17→14:45)
[2018-06-19] MEDS: Spironolactone 50 MG Tablet PO SCH (08:55)
[2018-06-19] MEDS: rifAXIMin 550 MG Tablet PO SCH ×2 (08:55→21:32)
[2018-06-19] MEDS: Cholestyramine Light 4 GM Packet PO SCH ×4 (08:56→21:32)
[2018-06-19] MEDS: Furosemide 20 MG Tablet PO SCH ×2 (08:56→17:00)
--- NOTE | 2018-06-19 12:48 | P.PN ---
Subjective Interval history: Nursing denies any deterioration since last night. is pleased with some recovery of the patient's overall energy level, is very pleased that the patient actually called her via phone very early this morning. Physical Exam Vital signs: Vital Signs 06/18/18 16:00 06/18/18 20:00 06/18/18 20:14 Temperature 98.5 F 99.0 F Pulse Rate 65 77 67 Respiratory Rate 18 21 Blood Pressure 122/77 133/63 Pulse Oximetry 99 97 06/19/18 00:10 06/19/18 04:50 06/19/18 08:15 Temperature 98.0 F 98.6 F Pulse Rate 69 72 73 Respiratory Rate 21 17 Blood Pressure 131/67 117/60 Pulse Oximetry 97 97 Intake & Output 06/18/18 06/19/18 06/19/18 18:59 06:59 18:59 Intake Total 920 / 920 580 / 580 Output Total 200 / 200 780 / 780 Balance 720 / 720 -200 / -200 Weight 121 kg Intake: IV 200 / 200 100 / 100 Flexbumin 25% Inj 100 ML @ 60 100 / 100 100 / 100 mls/hr IV.SIG Q12H [facility] Rx#: [id number] Rocephin Inj 1,000 MG In NS Inj 100 / 100 100 ML @ 200 mls/hr IV.SIG Q24H SHOSHANA Rx#:[id number] Oral 720 / 720 480 / 480 Output: Urine 200 / 200 780 / 780 Other: # Voids 1 Date of Last Bowel Movement 06/17/18 # Bowel Movements 0 Narrative: Abdomen shows unchanged distention to moderate extent since yesterday Otherwise abdomen soft, nontender Unlabored breathing Clear lungs bilaterally Sleeping, easily awoken, no acute distress - Urinary Catheter Management Straight Cath placed during this visit: yes Reason for continuing: Not indwelling catheter Insertion date: 06/12/18 Insertion time: 19:10 Results - Labs CBC & Chem 7: 06/17/18 18:50 06/19/18 15:40 Assessment and Plan - Plan 63-year-old black male admitted for acute renal failure, metabolic encephalopathy. Hx of Cirrhosis. Other metabolic causes have been ruled out for his encephalopathy. CT head is negative, B12 was unremarkable, electrolytes otherwise unremarkable. Overall meld score is 33 giving about a 50 % mortality in about 3 months. Patient and are aware of this prognosis. Chronic hepatic encephalopathy Slowed mentation is evident, likely secondary to hepatic failure and azotemia Continue treating underlying problems of hepatic failure and acute renal failure -zinc, continue lactulose and rifaximin Hepatitis C/cirrhosis/ascites/hyperbilirubinemia -Status post paracentesis with 8.4 L removed on 06/16 - Questran, Benadryl - Coreg, spironolactone -Meld scores greater than 30, poor prognosis Hepatorenal syndrome -Likely secondary to dehydration 2/2 lactulose and/or third spacing with cirrhosis -Do not anticipate further significant improvement secondary to liver disease -Albumin Klebsiella UTI Rocephin as above generalized weakness -Likely multifactorial including metabolic encephalopathy element PT/OT/ST Symptomatic anemia -likely anemia of chronic dx, stable h/h s/p transfusion Atrial fibrillation -coreg -Patient not on systemic anticoagulation due to bleeding risk Addendum: RN reports transient tachycardia to 140s-150s, which is likely the pt 's afib. Starting oral cardizem. Discharge Planning: Pending placement versus reconditioning to be able to go home safe
--- NOTE | 2018-06-19 13:58 | P.PNNP ---
Subjective Interval history: tired Physical Exam Vital signs: Vital Signs 06/18/18 16:00 06/18/18 20:00 06/18/18 20:14 Temperature 98.5 F 99.0 F Pulse Rate 65 77 67 Respiratory Rate 18 21 Blood Pressure 122/77 133/63 Pulse Oximetry 99 97 06/19/18 00:10 06/19/18 04:50 06/19/18 08:15 Temperature 98.0 F 98.6 F Pulse Rate 69 72 73 Respiratory Rate 21 17 Blood Pressure 131/67 117/60 Pulse Oximetry 97 97 Intake & Output 06/18/18 06/19/18 06/19/18 18:59 06:59 18:59 Intake Total 920 / 920 580 / 580 Output Total 200 / 200 780 / 780 Balance 720 / 720 -200 / -200 Weight 121 kg Intake: IV 200 / 200 100 / 100 Flexbumin 25% Inj 100 ML @ 60 100 / 100 100 / 100 mls/hr IV.SIG Q12H [facility] Rx#: [id number] Rocephin Inj 1,000 MG In NS Inj 100 / 100 100 ML @ 200 mls/hr IV.SIG Q24H SHOS[facility] Rx#:[id number] Oral 720 / 720 480 / 480 Output: Urine 200 / 200 780 / 780 Other: # Voids 1 Date of Last Bowel Movement 06/17/18 # Bowel Movements 0 Narrative: Abdomen shows unchanged distention to moderate extent since yesterday Otherwise abdomen soft, nontender Unlabored breathing Clear lungs bilaterally Sleeping, easily awoken, no acute distress - Urinary Catheter Management Straight Cath placed during this visit: yes Reason for continuing: Not indwelling catheter Insertion date: 06/12/18 Insertion time: 19:10 Assessment and Plan - Assessment (1) Acute kidney injury Code(s): N17.9 - Acute kidney failure, unspecified Status: Acute (2) Hyperammonemia Code(s): E72.20 - Disorder of urea cycle metabolism, unspecified Status: Acute (3) Hepatic encephalopathy Code(s): K72.90 - Hepatic failure, unspecified without coma Status: Acute (4) Coagulopathy Code(s): D68.9 - Coagulation defect, unspecified Status: Acute - Plan Patient with hepatorenal syndrome we will check your urine sodium and creatinine , on albumin 25 g IV every 12 hourly On treatment for hepatic encephalopathy total bilirubin still high creatinine 2.1 had paracentesis fluid removed Patient has no new BMP, last Creatinine was stable at 2.1 He has hepatic encephalopathy, continue with treatment of cirrhosis of the liver UTI on ceftriaxone Avoid nephrotoxic agents Follow the urine out put and BMP. D/W the at bed side.
--- NOTE | 2018-06-19 15:25 | P.PNGI ---
Subjective Interval history: Patient resting in bed, spouse at bedside. Patient denies any abdominal pain, nausea or vomiting. No BM yet today but states he feels as though he may have one today. States he was up ambulating and feels "much better". <Larua Rauschy - Last Filed: 06/19/18 15:12> Physical Exam Vital signs: Vital Signs 06/18/18 16:00 06/18/18 20:00 06/18/18 20:14 Temperature 98.5 F 99.0 F Pulse Rate 65 77 67 Respiratory Rate 18 21 Blood Pressure 122/77 133/63 Pulse Oximetry 99 97 06/19/18 00:10 06/19/18 04:50 06/19/18 08:00 Temperature 98.0 F 98.6 F 98.5 F Pulse Rate 69 72 73 Respiratory Rate 21 17 16 Blood Pressure 131/67 117/60 117/56 L Pulse Oximetry 97 97 99 06/19/18 08:15 06/19/18 12:00 Temperature 97.8 F Pulse Rate 73 56 L Respiratory Rate 17 Blood Pressure 120/62 Pulse Oximetry 98 Intake & Output 06/18/18 06/19/18 06/19/18 18:59 06:59 18:59 Intake Total 920 / 920 580 / 580 100 / 100 Output Total 200 / 200 780 / 780 Balance 720 / 720 -200 / -200 100 / 100 Weight 121 kg Intake: IV 200 / 200 100 / 100 100 / 100 Flexbumin 25% Inj 100 ML @ 60 100 / 100 100 / 100 mls/hr IV.SIG Q12H [facility] Rx#: [id number] Rocephin Inj 1,000 MG In NS Inj 100 / 100 100 / 100 100 ML @ 200 mls/hr IV.SIG Q24H [facility] Rx#:[id number] Oral 720 / 720 480 / 480 Output: Urine 200 / 200 780 / 780 Other: # Voids 1 Date of Last Bowel Movement 06/17/18 # Bowel Movements 0 - Constitutional no acute distress - Routine HEENT Exam Head: Present: normocephalic Eye: Present: conjunctival icterus Comments: Lessened - Routine Neck Exam Present: supple - Routine Respiratory Exam Present: CTA bilaterally. Absent: accessory muscle use - Routine Cardiovascular Exam Present: RRR - Routine Abdominal Exam Present: soft, normoactive bowel sounds, distended. Absent: tenderness, guarding, firm - Routine Extremities Exam Present: full ROM - Routine Skin Exam Present: dry, warm - Routine Neurological Exam Present: alert, oriented X3 - Detailed Neurological Exam: Coma Scale Eye Opening: Spontaneous Verbal Response: Oriented Motor Response: Obey commands [place] Coma Scale Total: 15 - Routine Psychiatric Exam Present: normal affect, cooperative - Urinary Catheter Management Straight Cath placed during this visit: yes Reason for continuing: Not indwelling catheter Insertion date: 06/12/18 Insertion time: 19:10 <Gena Rausch - Last Filed: 06/19/18 15:12> Vital signs: Vital Signs 06/18/18 20:00 06/18/18 20:14 06/19/18 00:10 Temperature 99.0 F 98.0 F Pulse Rate 77 67 69 Respiratory Rate 21 21 Blood Pressure 133/63 131/67 Pulse Oximetry 97 97 06/19/18 04:50 06/19/18 08:00 06/19/18 08:15 Temperature 98.6 F 98.5 F Pulse Rate 72 73 73 Respiratory Rate 17 16 Blood Pressure 117/60 117/56 L Pulse Oximetry 97 99 06/19/18 12:00 06/19/18 16:00 Temperature 97.8 F 98.3 F Pulse Rate 56 L 75 Respiratory Rate 17 17 Blood Pressure 120/62 120/58 L Pulse Oximetry 98 100 Intake & Output 06/18/18 06/19/18 06/19/18 18:59 06:59 18:59 Intake Total 920 / 920 580 / 580 200 / 200 Output Total 200 / 200 780 / 780 Balance 720 / 720 -200 / -200 200 / 200 Weight 121 kg Intake: IV 200 / 200 100 / 100 200 / 200 Flexbumin 25% Inj 100 ML @ 60 100 / 100 100 / 100 100 / 100 mls/hr IV.SIG Q12H [facility] Rx#: [id number] Rocephin Inj 1,000 MG In NS Inj 100 / 100 100 / 100 100 ML @ 200 mls/hr IV.SIG Q24H [facility] Rx#:[id number] Oral 720 / 720 480 / 480 Output: Urine 200 / 200 780 / 780 Other: # Voids 1 Date of Last Bowel Movement 06/17/18 # Bowel Movements 0 - Urinary Catheter Management Straight Cath placed during this visit: no <Vonnie Escobar - Last Filed: 06/19/18 17:31> Results - Labs CBC & Chem 7: 06/17/18 18:50 06/17/18 18:50 <Gena Rausch - Last Filed: 06/19/18 15:12> - Labs CBC & Chem 7: 06/17/18 18:50 06/19/18 15:40 Laboratory Results - last 24 hr 06/19/18 15:40 Sodium 138 Potassium 4.4 Chloride 109 H Carbon Dioxide 27.1 Anion Gap 2 L BUN 19 H Creatinine 1.74 H Estimated GFR 48 L Random Glucose 129 H Calcium 8.8 Magnesium 2.0 <Vonnie Escobar - Last Filed: 06/19/18 17:31> Assessment and Plan (1) Ascites of liver Status: Chronic Code(s): R18.8 - Other ascites (2) Encephalopathy Status: Acute Code(s): G93.40 - Encephalopathy, unspecified - Plan Ascites Paracentesis done 06/16/2018, 8400 cc peritoneal fluid removed. Less distention noted. Patient denies any abdominal discomfort's of breath. Patient currently on Lasix 20 mg twice daily and Aldactone 100 mg daily. Encephalopathy Patient awake, alert and oriented and appropriate. Patient currently on zinc 220 mg daily , rifaximin 550 mg twice daily and lactulose 30 mL's 4 times daily. 06/14/2018 ammonia level 46. Hepatitis C Plan for outpatient treatment Anemia 06/17/2018 hemoglobin 7.2 hematocrit 21.1 platelet count 56. Patient and spouse deny any noted active bleeding. Plan -Diet as tolerated -Monitor liver function labs-trending down -Repeat ammonia -Monitor for any bleeding -Monitor for change in mental status -Continue Lasix, Aldactone, rifaximin, lactulose and zinc -Supportive care -Further recommendations to follow based on patient status This patient has been seen by myself and Dr. Escobar and this note is written on her behalf. - Attending Attestation Dr. Escobar <Gena Rausch - Last Filed: 06/19/18 15:12> (1) Ascites of liver Status: Chronic Code(s): R18.8 - Other ascites (2) Encephalopathy Status: Acute Code(s): G93.40 - Encephalopathy, unspecified - Attending Attestation seen, examined agree with above <Vonnie Escobar - Last Filed: 06/19/18 17:31>
[2018-06-19 16:45] LABS: Calcium 8.8 mg/dL (8.5-10.1); Carbon Dioxide 27.1 meq/L (21.0-32.0); Potassium 4.4 meq/L (3.5-5.1)
[2018-06-19] MEDS: dilTIAZem 30 MG Tablet PO SCH ×2 (18:07→21:32)
[2018-06-20 00:33] LABS: Creatinine,Urine Random 198 mg/dL (27-300)
[2018-06-20 00:38] LABS: Bilirubin,Urine Negative (Negative); Clarity,Urine Cloudy (Clear); Color,Urine Amber (Yellw/Straw); Glucose,Urine (UA) Negative (Negative); Hyaline Casts,Urine 64 /lpf (0-3); Leukocyte Esterase,Urine Trace (Negative); Mucus,Urine Few /lpf (Occasional); Nitrite,Urine Negative (Negative); Specific Gravity,Urine 1.019 (1.002-1.035); Squamous Epithelial Cell,Urine 1 /hpf (0-5)
[2018-06-20] MEDS: Albumin Human 25% Inj 100 ML IV.SIG SCH ×2 (03:39→14:25)
[2018-06-20 05:18] LABS: Baso % (Auto) 0.8 % (0.0-2.0); Eos # (Auto) 0.1 th/mm3 (0.0-0.4); Lymph # (Auto) 0.7 th/mm3 (1.0-4.8); Lymph % (Auto) 18.6 % (9.0-44.0); Mean Corpuscular HGB Conc 33.5 % (32.0-36.0); Mean Corpuscular Hemoglobin 36.4 pg (27.0-34.0); Mean Corpuscular Volume 108.8 fL (80.0-100.0); Mean Platelet Volume 8.9 fL (7.0-11.0); Mono # (Auto) 0.4 th/mm3 (0.0-0.9); Mono % (Auto) 12.1 % (0.0-8.0); Neut # (Auto) 2.3 th/mm3 (1.8-7.7); Neut % (Auto) 64.5 % (16.0-70.0); Platelet Count 61 th/mm3 (150-450); Red Blood Count 1.72 mil/mm3 (4.50-5.90); Red Cell Distribution Width 16.6 % (11.6-17.2); White Blood Count 3.5 th/mm3 (4.0-11.0)
[2018-06-20 05:37] LABS: Albumin 2.9 g/dL (3.4-5.0); Anion Gap 8 meq/L (5-15); Aspartate Aminotransferase 55 U/L (15-37); Blood Urea Nitrogen 19 mg/dL (7-18); Calcium 9.1 mg/dL (8.5-10.1); Chloride 107 meq/L (98-107); Glomerular Filtration Rate 47 mL/min (>89); Glucose,Random 110 mg/dL (74-106); Potassium 4.5 meq/L (3.5-5.1); Sodium 139 meq/L (136-145)
[2018-06-20 05:38] LABS: Alanine Aminotransferase 37 U/L (12-78)
[2018-06-20 05:40] LABS: Alkaline Phosphatase 72 U/L (45-117); Hemoglobin 6.3 gm/dL (13.0-17.0); Total Protein 7.2 g/dL (6.4-8.2)
[2018-06-20 05:41] LABS: Hematocrit 18.7 % (39.0-51.0)
[2018-06-20] MEDS ORDERED: Sodium Chlor 0.9% Inj 250 ML IV.SIG SCH (06:00)
[2018-06-20 08:36] LABS: Ovalocytes 1+; Platelet Morphology Normal (Normal)
[2018-06-20] MEDS: Spironolactone 50 MG Tablet PO SCH (11:22)
[2018-06-20] MEDS: rifAXIMin 550 MG Tablet PO SCH ×2 (11:22→20:19)
[2018-06-20] MEDS: Cholestyramine Light 4 GM Packet PO SCH ×4 (11:23→20:19)
[2018-06-20] MEDS: Furosemide 20 MG Tablet PO SCH ×2 (11:23→17:48)
[2018-06-20] MEDS: dilTIAZem 30 MG Tablet PO SCH ×4 (11:29→20:19)
--- NOTE | 2018-06-20 11:37 | P.PNGI ---
Subjective Interval history: Patient sitting up in bed, spouse at bedside. Patient awake and alert, denies any discomfort. Nurse at bedside preparing to administer blood transfusion. <Laura Rauschy - Last Filed: 06/20/18 11:28> Physical Exam Vital signs: Vital Signs 06/19/18 12:00 06/19/18 16:00 06/19/18 20:00 Temperature 97.8 F 98.3 F 98.6 F Pulse Rate 56 L 75 74 Respiratory Rate 17 17 17 Blood Pressure 120/62 120/58 L 115/60 Pulse Oximetry 98 100 100 06/20/18 00:00 06/20/18 00:06 06/20/18 04:00 Temperature 98.2 F 98.1 F Pulse Rate 75 77 73 Respiratory Rate 17 17 Blood Pressure 119/60 122/56 L Pulse Oximetry 99 98 06/20/18 08:00 06/20/18 10:18 06/20/18 10:36 Temperature 98.0 F 98.2 F 97.9 F Pulse Rate 76 64 65 Respiratory Rate 17 16 16 Blood Pressure 91/58 L 112/57 L 110/55 L Pulse Oximetry 97 94 L Intake & Output 06/19/18 06/20/18 06/20/18 18:59 06:59 18:59 Intake Total 1020 / 1020 580 / 580 0 / 0 Output Total 800 / 800 400 / 400 Balance 220 / 220 180 / 180 0 / 0 Weight 121 kg Intake: IV 200 / 200 100 / 100 Flexbumin 25% Inj 100 ML @ 60 100 / 100 100 / 100 mls/hr IV.SIG Q12H [facility] Rx#: [id number] Rocephin Inj 1,000 MG In NS Inj 100 / 100 100 ML @ 200 mls/hr IV.SIG Q24H [facility] Rx#:[id number] Oral 820 / 820 480 / 480 Intake (Blood Product) Amt 0 / 0 Rbc As-3 Leukoreduced Unit 0 / 0 [id number] Output: Urine 800 / 800 400 / 400 Other: Date of Last Bowel Movement 06/17/18 06/19/18 # Bowel Movements 1 - Constitutional no acute distress - Routine HEENT Exam Head: Present: normocephalic - Routine Respiratory Exam Present: CTA bilaterally. Absent: accessory muscle use - Routine Cardiovascular Exam Present: RRR - Routine Abdominal Exam Present: soft, normoactive bowel sounds. Absent: tenderness, guarding, firm - Routine Extremities Exam Present: pulses intact. Absent: edema - Routine Skin Exam Present: dry, warm - Routine Neurological Exam Present: alert, oriented X3 - Routine Psychiatric Exam Present: normal affect, cooperative - Urinary Catheter Management Straight Cath placed during this visit: yes Reason for continuing: Not indwelling catheter Insertion date: 06/12/18 Insertion time: 19:10 <Gena Rausch - Last Filed: 06/20/18 11:28> Vital signs: Vital Signs 06/19/18 20:00 06/20/18 00:00 06/20/18 00:06 Temperature 98.6 F 98.2 F Pulse Rate 74 75 77 Respiratory Rate 17 17 Blood Pressure 115/60 119/60 Pulse Oximetry 100 99 06/20/18 04:00 06/20/18 08:00 06/20/18 10:18 Temperature 98.1 F 98.0 F 98.2 F Pulse Rate 73 71 64 Respiratory Rate 17 17 16 Blood Pressure 122/56 L 91/58 L 112/57 L Pulse Oximetry 98 97 06/20/18 10:36 06/20/18 12:00 06/20/18 16:20 Temperature 97.9 F 97.7 F 97.7 F Pulse Rate 65 67 63 Respiratory Rate 16 17 18 Blood Pressure 110/55 L 109/56 L 111/61 Pulse Oximetry 94 L 98 99 Intake & Output 06/19/18 06/20/18 06/20/18 18:59 06:59 18:59 Intake Total 1020 / 1020 580 / 580 1120 / 1120 Output Total 800 / 800 400 / 400 350 / 350 Balance 220 / 220 180 / 180 770 / 770 Weight 121 kg Intake: IV 200 / 200 100 / 100 Flexbumin 25% Inj 100 ML @ 60 100 / 100 100 / 100 mls/hr IV.SIG Q12H [facility] Rx#: [id number] Rocephin Inj 1,000 MG In NS Inj 100 / 100 100 ML @ 200 mls/hr IV.SIG Q24H [facility] Rx#:[id number] Oral 820 / 820 480 / 480 720 / 720 Intake (Blood Product) Amt 400 / 400 Rbc As-3 Leukoreduced Unit 400 / 400 [id number] Output: Urine 800 / 800 400 / 400 350 / 350 Other: Date of Last Bowel Movement 06/17/18 06/19/18 # Bowel Movements 1 - Urinary Catheter Management Straight Cath placed during this visit: no <Vonnie Escobar - Last Filed: 06/20/18 18:59> Results - Labs CBC & Chem 7: 06/20/18 05:00 06/20/18 05:00 Laboratory Results - last 24 hr 06/19/18 06/19/18 06/19/18 15:40 23:50 23:50 WBC RBC Hgb Hct MCV MCH MCHC RDW Plt Count MPV Prelim Diff (Auto) Neut % (Auto) Lymph % (Auto) [place] % (Auto) Eos % (Auto) Baso % (Auto) Neut # (Auto) Lymph # (Auto) [place] # (Auto) Eos # (Auto) Baso # (Auto) WBC Differential Diff Scan Differential Comment Platelet Estimate Platelet Morphology Ovalocytes Sodium 138 Potassium 4.4 Chloride 109 H Carbon Dioxide 27.1 Anion Gap 2 L BUN 19 H Creatinine 1.74 H Estimated GFR 48 L Random Glucose 129 H Calcium 8.8 Magnesium 2.0 Total Bilirubin AST ALT Alkaline Phosphatase Ammonia Total Protein Albumin Urine Color [place] Urine Clarity Cloudy H Urine pH 5.0 Ur Specific [place] 1.019 Urine Protein Negative Urine Glucose (UA) Negative Urine Ketones Trace H Urine Occult Blood Moderate H Urine Nitrate Negative Urine Bilirubin Negative Urine Urobilinogen Less than 2 Ur Leukocyte Esterase Trace H Urine RBC 22 H Urine WBC 35 H Ur Squamous Epith Cells 1 Hyaline Casts 64 Urine Mucus Few H Micro UA Comment Culture indicated Ur Microscopic Review Not Reportable Urine Culture Comments Culture indicated Ur Random Creatinine 198 Ur Random Sodium 37 Blood Type Blood Type Recheck Antibody Screen MTS Gel Crossmatch 06/20/18 06/20/18 06/20/18 05:00 05:00 05:00 WBC 3.5 L RBC 1.72 L Hgb 6.3 L* Hct 18.7 L* MCV 108.8 H MCH 36.4 H MCHC 33.5 RDW 16.6 Plt Count 61 L MPV 8.9 Prelim Diff (Auto) Slide review pending Neut % (Auto) 64.5 Lymph % (Auto) 18.6 [place] % (Auto) 12.1 H Eos % (Auto) 4.0 Baso % (Auto) 0.8 Neut # (Auto) 2.3 Lymph # (Auto) 0.7 L [place] # (Auto) 0.4 Eos # (Auto) 0.1 Baso # (Auto) 0.0 WBC Differential . Diff Scan Auto diff confirmed Differential Comment . Platelet Estimate Low L Platelet Morphology Normal Ovalocytes 1+ H Sodium 139 Potassium 4.5 Chloride 107 Carbon Dioxide 24.0 Anion Gap 8 BUN 19 H Creatinine 1.78 H Estimated GFR 47 L Random Glucose 110 H Calcium 9.1 Magnesium Total Bilirubin 6.7 H AST 55 H ALT 37 Alkaline Phosphatase 72 Ammonia 55 H Total Protein 7.2 Albumin 2.9 L Urine Color Urine Clarity Urine pH Ur Specific [place] Urine Protein Urine Glucose (UA) Urine Ketones Urine Occult Blood Urine Nitrate Urine Bilirubin Urine Urobilinogen Ur Leukocyte Esterase Urine RBC Urine WBC Ur Squamous Epith Cells Hyaline Casts Urine Mucus Micro UA Comment Ur Microscopic Review Urine Culture Comments Ur Random Creatinine Ur Random Sodium Blood Type Blood Type Recheck Antibody Screen MTS Gel Crossmatch 06/20/18 06/20/18 07:59 07:59 WBC RBC Hgb Hct MCV MCH MCHC RDW Plt Count MPV Prelim Diff (Auto) Neut % (Auto) Lymph % (Auto) [place] % (Auto) Eos % (Auto) Baso % (Auto) Neut # (Auto) Lymph # (Auto) [place] # (Auto) Eos # (Auto) Baso # (Auto) WBC Differential Diff Scan Differential Comment Platelet Estimate Platelet Morphology Ovalocytes Sodium Potassium Chloride Carbon Dioxide Anion Gap BUN Creatinine Estimated GFR Random Glucose Calcium Magnesium Total Bilirubin AST ALT Alkaline Phosphatase Ammonia Total Protein Albumin Urine Color Urine Clarity Urine pH Ur Specific [place] Urine Protein Urine Glucose (UA) Urine Ketones Urine Occult Blood Urine Nitrate Urine Bilirubin Urine Urobilinogen Ur Leukocyte Esterase Urine RBC Urine WBC Ur Squamous Epith Cells Hyaline Casts Urine Mucus Micro UA Comment Ur Microscopic Review Urine Culture Comments Ur Random Creatinine Ur Random Sodium Blood Type O Positive Cancelled Blood Type Recheck Cancelled Antibody Screen Negative Cancelled MTS Gel Crossmatch See Detail <Gena Rausch - Last Filed: 06/20/18 11:28> - Labs CBC & Chem 7: 06/20/18 15:23 06/20/18 05:00 Laboratory Results - last 24 hr 06/19/18 06/19/18 06/20/18 23:50 23:50 05:00 WBC 3.5 L RBC 1.72 L Hgb 6.3 L* Hct 18.7 L* MCV 108.8 H MCH 36.4 H MCHC 33.5 RDW 16.6 Plt Count 61 L MPV 8.9 Prelim Diff (Auto) Slide review pending Neut % (Auto) 64.5 Lymph % (Auto) 18.6 [place] % (Auto) 12.1 H Eos % (Auto) 4.0 Baso % (Auto) 0.8 Neut # (Auto) 2.3 Lymph # (Auto) 0.7 L [place] # (Auto) 0.4 Eos # (Auto) 0.1 Baso # (Auto) 0.0 WBC Differential . Diff Scan Auto diff confirmed Differential Comment . Platelet Estimate Low L Platelet Morphology Normal Ovalocytes 1+ H Sodium Potassium Chloride Carbon Dioxide Anion Gap BUN Creatinine Estimated GFR Random Glucose Calcium Total Bilirubin AST ALT Alkaline Phosphatase Ammonia Total Protein Albumin Urine Color [place] Urine Clarity Cloudy H Urine pH 5.0 Ur Specific [place] 1.019 Urine Protein Negative Urine Glucose (UA) Negative Urine Ketones Trace H Urine Occult Blood Moderate H Urine Nitrate Negative Urine Bilirubin Negative Urine Urobilinogen Less than 2 Ur Leukocyte Esterase Trace H Urine RBC 22 H Urine WBC 35 H Ur Squamous Epith Cells 1 Hyaline Casts 64 Urine Mucus Few H Micro UA Comment Culture indicated Ur Microscopic Review Not Reportable Urine Culture Comments Culture indicated Ur Random Creatinine 198 Ur Random Sodium 37 Blood Type Blood Type Recheck Antibody Screen MTS Gel Crossmatch 06/20/18 06/20/18 06/20/18 05:00 05:00 07:59 WBC RBC Hgb Hct MCV MCH MCHC RDW Plt Count MPV Prelim Diff (Auto) Neut % (Auto) Lymph % (Auto) [place] % (Auto) Eos % (Auto) Baso % (Auto) Neut # (Auto) Lymph # (Auto) [place] # (Auto) Eos # (Auto) Baso # (Auto) WBC Differential Diff Scan Differential Comment Platelet Estimate Platelet Morphology Ovalocytes Sodium 139 Potassium 4.5 Chloride 107 Carbon Dioxide 24.0 Anion Gap 8 BUN 19 H Creatinine 1.78 H Estimated GFR 47 L Random Glucose 110 H Calcium 9.1 Total Bilirubin 6.7 H AST 55 H ALT 37 Alkaline Phosphatase 72 Ammonia 55 H Total Protein 7.2 Albumin 2.9 L Urine Color Urine Clarity Urine pH Ur Specific [place] Urine Protein Urine Glucose (UA) Urine Ketones Urine Occult Blood Urine Nitrate Urine Bilirubin Urine Urobilinogen Ur Leukocyte Esterase Urine RBC Urine WBC Ur Squamous Epith Cells Hyaline Casts Urine Mucus Micro UA Comment Ur Microscopic Review Urine Culture Comments Ur Random Creatinine Ur Random Sodium Blood Type O Positive Blood Type Recheck Antibody Screen Negative MTS Gel Crossmatch See Detail 06/20/18 06/20/18 07:59 15:23 WBC RBC Hgb 7.3 L Hct 21.4 L MCV MCH MCHC RDW Plt Count MPV Prelim Diff (Auto) Neut % (Auto) Lymph % (Auto) [place] % (Auto) Eos % (Auto) Baso % (Auto) Neut # (Auto) Lymph # (Auto) [place] # (Auto) Eos # (Auto) Baso # (Auto) WBC Differential Diff Scan Differential Comment Platelet Estimate Platelet Morphology Ovalocytes Sodium Potassium Chloride Carbon Dioxide Anion Gap BUN Creatinine Estimated GFR Random Glucose Calcium Total Bilirubin AST ALT Alkaline Phosphatase Ammonia Total Protein Albumin Urine Color Urine Clarity Urine pH Ur Specific [place] Urine Protein Urine Glucose (UA) Urine Ketones Urine Occult Blood Urine Nitrate Urine Bilirubin Urine Urobilinogen Ur Leukocyte Esterase Urine RBC Urine WBC Ur Squamous Epith Cells Hyaline Casts Urine Mucus Micro UA Comment Ur Microscopic Review Urine Culture Comments Ur Random Creatinine Ur Random Sodium Blood Type Cancelled Blood Type Recheck Cancelled Antibody Screen Cancelled MTS Gel Crossmatch <Vonnie Escobar - Last Filed: 06/20/18 18:59> Assessment and Plan (1) Ascites of liver Status: Chronic Code(s): R18.8 - Other ascites (2) Encephalopathy Status: Acute Code(s): G93.40 - Encephalopathy, unspecified - Plan Ascites Paracentesis done 06/16/2018, 8400 cc peritoneal fluid removed. Less distention noted. Patient denies any abdominal discomfort's of breath. Patient currently on Lasix 20 mg twice daily and Aldactone 100 mg daily. Encephalopathy Patient awake, alert and oriented and appropriate. Patient currently on zinc 220 mg daily , rifaximin 550 mg twice daily and lactulose 30 mL's 4 times daily. 06/14/2018 ammonia level 46. Hepatitis C Plan for outpatient treatment Anemia 06/17/2018 hemoglobin 7.2 hematocrit 21.1 platelet count 56. Patient and spouse deny any noted active bleeding. 06/20/2018 Ascites Post paracentesis on 06/16/2018. Patient denies any abdominal pain or shortness of breath. Currently on Lasix 20 mg twice daily and Aldactone 100 mg daily. Encephalopathy Patient awake alert and oriented. Ammonia level this a.m. 55. Zinc, Xifaxan, and lactulose Hepatitis C Treatment as outpatient planned Anemia Hemoglobin 6.3 hematocrit 18.7. Patient being transfused as needed today. Patient denies any noted active bleeding. Plan -Diet as tolerated/low-sodium -Monitor liver function labs -Monitor for any bleeding -Transfuse as needed -Monitor for change in mental status -Continue Lasix, Aldactone, rifaximin, lactulose and zinc -Supportive care -Further recommendations to follow based on patient status This patient has been seen by myself and Dr. Escobar and this note is written on her behalf. - Attending Attestation Dr. Escobar <Gena Rausch - Last Filed: 06/20/18 11:28> (1) Ascites of liver Status: Chronic Code(s): R18.8 - Other ascites (2) Encephalopathy Status: Acute Code(s): G93.40 - Encephalopathy, unspecified - Attending Attestation seen, examined agree with above egd before discharge <Vonnie Escobar - Last Filed: 06/20/18 18:59>
--- NOTE | 2018-06-20 13:43 | P.PN ---
Subjective Interval history: Follow-up for hepatic encephalopathy, cirrhosis, anemia-patient seen and examined, awake, alert oriented x3. Slow to respond but otherwise appropriate. Working with speech therapist. Has no complaints, no chest pain, shortness of breath, no nausea, no vomiting. at bedside. A. fib on monitor, occasionally tachycardic up to 130s 140s. Hemoglobin 6.3 this morning, getting ready to receive 1 unit of blood. No active bleeding. at bedside Physical Exam Vital signs: Vital Signs 06/19/18 16:00 06/19/18 20:00 06/20/18 00:00 Temperature 98.3 F 98.6 F 98.2 F Pulse Rate 75 74 75 Respiratory Rate 17 17 17 Blood Pressure 120/58 L 115/60 119/60 Pulse Oximetry 100 100 99 06/20/18 00:06 06/20/18 04:00 06/20/18 08:00 Temperature 98.1 F 98.0 F Pulse Rate 77 73 76 Respiratory Rate 17 17 Blood Pressure 122/56 L 91/58 L Pulse Oximetry 98 97 06/20/18 10:18 06/20/18 10:36 06/20/18 12:00 Temperature 98.2 F 97.9 F 97.7 F Pulse Rate 64 65 67 Respiratory Rate 16 16 17 Blood Pressure 112/57 L 110/55 L 109/56 L Pulse Oximetry 94 L 98 Intake & Output 06/19/18 06/20/18 06/20/18 18:59 06:59 18:59 Intake Total 1020 / 1020 580 / 580 0 / 0 Output Total 800 / 800 400 / 400 Balance 220 / 220 180 / 180 0 / 0 Weight 121 kg Intake: IV 200 / 200 100 / 100 Flexbumin 25% Inj 100 ML @ 60 100 / 100 100 / 100 mls/hr IV.SIG Q12H [facility] Rx#: [id number] Rocephin Inj 1,000 MG In NS Inj 100 / 100 100 ML @ 200 mls/hr IV.SIG Q24H [facility] Rx#:[id number] Oral 820 / 820 480 / 480 Intake (Blood Product) Amt 0 / 0 Rbc As-3 Leukoreduced Unit 0 / 0 [id number] Output: Urine 800 / 800 400 / 400 Other: Date of Last Bowel Movement 10/13/18 10/15/18 # Bowel Movements 1 Narrative: GENERAL: Well-nourished 63-year-old black male, chronically ill-appearing. SKIN: Warm and dry. HEAD: Atraumatic. Normocephalic. EYES: Pupils equal and round. Positive scleral icterus. No injection or drainage. ENT: No nasal bleeding or discharge. Mucous membranes pink and moist. NECK: Trachea midline. No JVD. CARDIOVASCULAR: S1-S2, irregularly irregular. Unable to detect any murmurs, no rubs, no gallops. RESPIRATORY: No accessory muscle use. Clear to auscultation. Breath sounds equal bilaterally. GASTROINTESTINAL: Abdomen soft, non-tender, nondistended. Hepatic and splenic margins not palpable. MUSCULOSKELETAL: Extremities without clubbing, cyanosis, or edema. No obvious deformities. NEUROLOGICAL: Awake, oriented x3. Slow to respond but appropriate. No focal deficits. Speech is clear. PSYCHIATRIC: Appropriate mood and affect; insight and judgment normal. - Urinary Catheter Management Straight Cath placed during this visit: yes Reason for continuing: Not indwelling catheter Insertion date: 06/12/18 Insertion time: 19:10 Results - Labs CBC & Chem 7: 06/20/18 05:00 06/20/18 05:00 Laboratory Results - last 24 hr 06/19/18 06/19/18 06/19/18 15:40 23:50 23:50 WBC RBC Hgb Hct MCV MCH MCHC RDW Plt Count MPV Prelim Diff (Auto) Neut % (Auto) Lymph % (Auto) [place] % (Auto) Eos % (Auto) Baso % (Auto) Neut # (Auto) Lymph # (Auto) [place] # (Auto) Eos # (Auto) Baso # (Auto) WBC Differential Diff Scan Differential Comment Platelet Estimate Platelet Morphology Ovalocytes Sodium 138 Potassium 4.4 Chloride 109 H Carbon Dioxide 27.1 Anion Gap 2 L BUN 19 H Creatinine 1.74 H Estimated GFR 48 L Random Glucose 129 H Calcium 8.8 Magnesium 2.0 Total Bilirubin AST ALT Alkaline Phosphatase Ammonia Total Protein Albumin Urine Color [place] Urine Clarity Cloudy H Urine pH 5.0 Ur Specific [place] 1.019 Urine Protein Negative Urine Glucose (UA) Negative Urine Ketones Trace H Urine Occult Blood Moderate H Urine Nitrate Negative Urine Bilirubin Negative Urine Urobilinogen Less than 2 Ur Leukocyte Esterase Trace H Urine RBC 22 H Urine WBC 35 H Ur Squamous Epith Cells 1 Hyaline Casts 64 Urine Mucus Few H Micro UA Comment Culture indicated Ur Microscopic Review Not Reportable Urine Culture Comments Culture indicated Ur Random Creatinine 198 Ur Random Sodium 37 Blood Type Blood Type Recheck Antibody Screen MTS Gel Crossmatch 06/20/18 06/20/18 06/20/18 05:00 05:00 05:00 WBC 3.5 L RBC 1.72 L Hgb 6.3 L* Hct 18.7 L* MCV 108.8 H MCH 36.4 H MCHC 33.5 RDW 16.6 Plt Count 61 L MPV 8.9 Prelim Diff (Auto) Slide review pending Neut % (Auto) 64.5 Lymph % (Auto) 18.6 [place] % (Auto) 12.1 H Eos % (Auto) 4.0 Baso % (Auto) 0.8 Neut # (Auto) 2.3 Lymph # (Auto) 0.7 L [place] # (Auto) 0.4 Eos # (Auto) 0.1 Baso # (Auto) 0.0 WBC Differential . Diff Scan Auto diff confirmed Differential Comment . Platelet Estimate Low L Platelet Morphology Normal Ovalocytes 1+ H Sodium 139 Potassium 4.5 Chloride 107 Carbon Dioxide 24.0 Anion Gap 8 BUN 19 H Creatinine 1.78 H Estimated GFR 47 L Random Glucose 110 H Calcium 9.1 Magnesium Total Bilirubin 6.7 H AST 55 H ALT 37 Alkaline Phosphatase 72 Ammonia 55 H Total Protein 7.2 Albumin 2.9 L Urine Color Urine Clarity Urine pH Ur Specific [place] Urine Protein Urine Glucose (UA) Urine Ketones Urine Occult Blood Urine Nitrate Urine Bilirubin Urine Urobilinogen Ur Leukocyte Esterase Urine RBC Urine WBC Ur Squamous Epith Cells Hyaline Casts Urine Mucus Micro UA Comment Ur Microscopic Review Urine Culture Comments Ur Random Creatinine Ur Random Sodium Blood Type Blood Type Recheck Antibody Screen MTS Gel Crossmatch 06/20/18 06/20/18 07:59 07:59 WBC RBC Hgb Hct MCV MCH MCHC RDW Plt Count MPV Prelim Diff (Auto) Neut % (Auto) Lymph % (Auto) [place] % (Auto) Eos % (Auto) Baso % (Auto) Neut # (Auto) Lymph # (Auto) [place] # (Auto) Eos # (Auto) Baso # (Auto) WBC Differential Diff Scan Differential Comment Platelet Estimate Platelet Morphology Ovalocytes Sodium Potassium Chloride Carbon Dioxide Anion Gap BUN Creatinine Estimated GFR Random Glucose Calcium Magnesium Total Bilirubin AST ALT Alkaline Phosphatase Ammonia Total Protein Albumin Urine Color Urine Clarity Urine pH Ur Specific [place] Urine Protein Urine Glucose (UA) Urine Ketones Urine Occult Blood Urine Nitrate Urine Bilirubin Urine Urobilinogen Ur Leukocyte Esterase Urine RBC Urine WBC Ur Squamous Epith Cells Hyaline Casts Urine Mucus Micro UA Comment Ur Microscopic Review Urine Culture Comments Ur Random Creatinine Ur Random Sodium Blood Type O Positive Cancelled Blood Type Recheck Cancelled Antibody Screen Negative Cancelled MTS Gel Crossmatch See Detail Assessment and Plan - Assessment (1) Hepatorenal syndrome Code(s): K76.7 - Hepatorenal syndrome Status: Acute (2) Hyperammonemia Code(s): E72.20 - Disorder of urea cycle metabolism, unspecified Status: Acute (3) Hepatic encephalopathy Code(s): K72.90 - Hepatic failure, unspecified without coma Status: Acute (4) Liver disease, chronic, with cirrhosis Code(s): K74.60 - Unspecified cirrhosis of liver; K76.9 - Liver disease, unspecified Status: Chronic (5) Altered mental status Code(s): R41.82 - Altered mental status, unspecified Status: Acute (6) Atrial fibrillation Code(s): I48.91 - Unspecified atrial fibrillation Status: Chronic (7) Acute kidney injury Code(s): N17.9 - Acute kidney failure, unspecified Status: Acute (8) Anemia Code(s): D64.9 - Anemia, unspecified Status: Acute - Plan 63-year-old black male admitted for acute renal failure, metabolic encephalopathy. Hx of Cirrhosis. Other metabolic causes have been ruled out for his encephalopathy. CT head is negative, B12 was unremarkable, electrolytes otherwise unremarkable. Overall meld score is 33 giving about a 50 % mortality in about 3 months. Patient and are aware of this prognosis. Chronic hepatic encephalopathy-Slowed mentation is evident, likely secondary to hepatic failure and azotemia Continue treating underlying problems of hepatic failure and acute renal failure -zinc, continue lactulose and rifaximin Hepatitis C/cirrhosis/ascites/hyperbilirubinemia -Status post paracentesis with 8.4 L removed on 06/16 - Questran, Benadryl - Coreg, spironolactone -Meld scores greater than 30, poor prognosis Hepatorenal syndrome -Likely secondary to dehydration 2/2 lactulose and/or third spacing with cirrhosis -Do not anticipate further significant improvement secondary to liver disease -Albumin 25 gm IV BID -Appreciate nephrology input Klebsiella UTI On Rocephin, will dc today, start Ceftin 250 mg po bid x 3 days. generalized weakness -Likely multifactorial including metabolic encephalopathy element PT/OT/ST Symptomatic anemia -likely anemia of chronic dx -HH dropped again today, 6.3/18.7. Will transfuse with 1 unit PRBC today Atrial fibrillation Having occasional episodes of tachycardia, heart rate up to 140s. -Continue Coreg 3.125 mg p.o. twice daily, Cardizem added yesterday 30 mg p.o. 4 times daily. -Patient not on systemic anticoagulation due to bleeding risk Coagulopathy, INR 2.0 -We will give vitamin K 2.5 mg p.o. x1 Repeat labs in the morning Patient not safe for discharge yet Code Status: Full code Discussed Condition With: RN, pt and Discharge Planning: Home with HHC, CM working on securing a few visits. Pt. is a self pay. Not safe for dc yet. (5) Altered mental status Qualifiers: Altered mental status type: transient alteration of awareness Qualified Code( s): R40.4 - Transient alteration of awareness (6) Atrial fibrillation Qualifiers: Atrial fibrillation type: paroxysmal Qualified Code(s): I48.0 - Paroxysmal atrial fibrillation (8) Anemia Qualifiers: Anemia type: unspecified type Qualified Code(s): D64.9 - Anemia, unspecified
--- NOTE | 2018-06-20 14:52 | P.PNNP ---
Subjective Interval history: Patient received blood transfusion Physical Exam Vital signs: Vital Signs 06/19/18 16:00 06/19/18 20:00 06/20/18 00:00 Temperature 98.3 F 98.6 F 98.2 F Pulse Rate 75 74 75 Respiratory Rate 17 17 17 Blood Pressure 120/58 L 115/60 119/60 Pulse Oximetry 100 100 99 06/20/18 00:06 06/20/18 04:00 06/20/18 08:00 Temperature 98.1 F 98.0 F Pulse Rate 77 73 76 Respiratory Rate 17 17 Blood Pressure 122/56 L 91/58 L Pulse Oximetry 98 97 06/20/18 10:18 06/20/18 10:36 06/20/18 12:00 Temperature 98.2 F 97.9 F 97.7 F Pulse Rate 64 65 67 Respiratory Rate 16 16 17 Blood Pressure 112/57 L 110/55 L 109/56 L Pulse Oximetry 94 L 98 Intake & Output 06/19/18 06/20/18 06/20/18 18:59 06:59 18:59 Intake Total 1020 / 1020 580 / 580 0 / 0 Output Total 800 / 800 400 / 400 Balance 220 / 220 180 / 180 0 / 0 Weight 121 kg Intake: IV 200 / 200 100 / 100 Flexbumin 25% Inj 100 ML @ 60 100 / 100 100 / 100 mls/hr IV.SIG Q12H [facility] Rx#: [id number] Rocephin Inj 1,000 MG In NS Inj 100 / 100 100 ML @ 200 mls/hr IV.SIG Q24H [facility] Rx#:[id number] Oral 820 / 820 480 / 480 Intake (Blood Product) Amt 0 / 0 Rbc As-3 Leukoreduced Unit 0 / 0 [id number] Output: Urine 800 / 800 400 / 400 Other: Date of Last Bowel Movement 06/17/18 06/19/18 # Bowel Movements 1 Narrative: GENERAL: Well-nourished 63-year-old black male, chronically ill-appearing. SKIN: Warm and dry. HEAD: Atraumatic. Normocephalic. EYES: Pupils equal and round. Positive scleral icterus. No injection or drainage. ENT: No nasal bleeding or discharge. Mucous membranes pink and moist. NECK: Trachea midline. No JVD. CARDIOVASCULAR: S1-S2, irregularly irregular. Unable to detect any murmurs, no rubs, no gallops. RESPIRATORY: No accessory muscle use. Clear to auscultation. Breath sounds equal bilaterally. GASTROINTESTINAL: Abdomen soft, non-tender, nondistended. Hepatic and splenic margins not palpable. MUSCULOSKELETAL: Extremities without clubbing, cyanosis, or edema. No obvious deformities. NEUROLOGICAL: Awake, oriented x3. Slow to respond but appropriate. No focal deficits. Speech is clear. PSYCHIATRIC: Appropriate mood and affect; insight and judgment normal. - Urinary Catheter Management Straight Cath placed during this visit: yes Reason for continuing: Not indwelling catheter Insertion date: 06/12/18 Insertion time: 19:10 Assessment and Plan - Assessment (1) Acute kidney injury Code(s): N17.9 - Acute kidney failure, unspecified Status: Acute (2) Hyperammonemia Code(s): E72.20 - Disorder of urea cycle metabolism, unspecified Status: Acute (3) Hepatic encephalopathy Code(s): K72.90 - Hepatic failure, unspecified without coma Status: Acute (4) Coagulopathy Code(s): D68.9 - Coagulation defect, unspecified Status: Acute - Plan Patient with hepatorenal syndrome we will check your urine sodium and creatinine , on albumin 25 g IV every 12 hourly On treatment for hepatic encephalopathy total bilirubin still high creatinine 2.1 had paracentesis fluid removed Patient creatinine declined to 1.7, received blood transfusion D/W the at bed side. Poor prognosis
[2018-06-20] MEDS ORDERED: Phytonadione 5 MG/SWFI 5 ML Oral Syringe PO ONE (15:30)
[2018-06-20 15:39] LABS: Hematocrit 21.4 % (39.0-51.0); Hemoglobin 7.3 gm/dL (13.0-17.0)
[2018-06-21] MEDS: Albumin Human 25% Inj 100 ML IV.SIG SCH ×2 (03:44→14:57)
[2018-06-21] MEDS: rifAXIMin 550 MG Tablet PO SCH ×2 (08:08→20:18)
[2018-06-21] MEDS: Spironolactone 50 MG Tablet PO SCH (08:08)
[2018-06-21] MEDS: dilTIAZem 30 MG Tablet PO SCH ×4 (08:08→20:18)
[2018-06-21] MEDS: Cholestyramine Light 4 GM Packet PO SCH ×4 (08:09→20:18)
[2018-06-21] MEDS: Furosemide 20 MG Tablet PO SCH ×2 (08:12→17:17)
[2018-06-21 08:29] LABS: Mean Corpuscular HGB Conc 34.3 % (32.0-36.0); Mean Corpuscular Hemoglobin 35.3 pg (27.0-34.0); Mean Corpuscular Volume 102.9 fL (80.0-100.0); Platelet Count 54 th/mm3 (150-450); Red Cell Distribution Width 19.7 % (11.6-17.2); White Blood Count 3.3 th/mm3 (4.0-11.0)
[2018-06-21 08:48] LABS: Hematocrit 19.5 % (39.0-51.0); Hemoglobin 6.7 gm/dL (13.0-17.0)
[2018-06-21 08:58] LABS: Calcium 9.1 mg/dL (8.5-10.1); Carbon Dioxide 23.1 meq/L (21.0-32.0); Potassium 4.4 meq/L (3.5-5.1)
[2018-06-21 09:03] LABS: INR 2.4 Ratio; Prothrombin Time 23.9 sec (9.8-11.6)
--- NOTE | 2018-06-21 10:31 | P.CONPAL ---
Consult Service: Palliative Care Requesting Physician: Winter Varghese Reason for Consult: a. To assist with evaluation and management of symptoms including: Encephalopathy, physical deconditioning b. To assist medical decision maker(s) with: better understanding of current medical conditions; weighing benefits/burdens of medical treatment options; making medical treatment decisions. Primary Care Provider: Laura Snell History of Present Illness History of Present Illness: Mr. Kaba is a 63-year-old patient with a medical history significant for hepatitis C, liver cirrhosis, atrial fibrillation, prostate cancer and psoriasis. Patient presented to the emergency room on 06/12/18 for evaluation of altered mental status. In the emergency room patient`s spouse reported that patient had been fatigued, weak, had decreased oral intake and distended abdomen. She also reported that patient had vomited on 06/11/18, denied diarrhea or constipation. Patient's last hospitalization was in May, with complaints of lethargy and altered mental status-patient was treated for hyperammonemia, ascites of the liver and he underwent paracentesis with removal of 7.8 Liters of peritoneal fluid. Patient was advised to follow-up outpatient for treatment of Hepatitis C. ER course: * Vital signs: Patient 97.8 F, pulse 70, respirations 17, BP 133/71, O2 saturation 97% * Head CT revealed no intracranial abnormality * Laboratory workup revealed WBC 5.3, hemoglobin 7.4, hematocrit 21.9, platelet count 104, sodium 139, potassium 4.8, BUN/creatinine 40/3.20, total bilirubin 9.6, AST 138, ALT 66, alkaline phosphatase 125, ammonia 57, troponin 0 0.03, total protein 8.2, albumin 1.7, TSH 1.800, PT 20.4, INR 2.0, APTT 40.7 * 1 unit PRBC transfused, vitamin K2 0.5 mg p.o. x1 dose * Chest x-ray revealed no infiltrates. * Urinalysis positive for leukocyte esterase-culture indicated * Patient admitted for further evaluation and treatment under [facility]. Urine culture collected on 06/12/18 positive for Klebsiella pneumoniae. Ultrasound kidney/renal/bladder on 06/13/18 revealed some increased echogenicity of the renal parenchyma of the right kidney suggestive of chronic medical renal disease. Nephrology Dr. Whittington consulted on 06/14/18 for evaluation and management of patient with acute renal failure, recommended checking urine sodium and creatinine as well as starting patient on albumin. Nephrology noted that prognosis is very poor. GI consulted Dr. Rios on 06/14/18 for evaluation and management of patient with anemia, cirrhosis and altered mental status, recommended paracentesis, monitoring renal function, liver enzymes and ammonia levels. Patient underwent ultrasound-guided paracentesis on 06/16/18 with removal of 8400 mL's of peritoneal fluid. Patient is currently not a liver transplant candidate due to hepatorenal syndrome and lack of finances. His MELD score is 34. Per GI overall prognosis is poor. Speech therapy, Occupational Therapy and physical therapy consulted. PT recommending PT at rehab. Clinical course complicated with persistent altered mental status, and anemia requiring blood transfusion. Palliative care consulted to assist with symptom management and establishment of goals of medical treatment. Ammonia level 55 on 06/20/18. Laboratory workup today revealing WBC 3.5, hemoglobin 6.3, hematocrit 18.7, platelet count 61, PT 23.9, INR 2.4, sodium 139 , potassium 4.4, BUN/creatinine 21/1.80. During this hospitalization, patient has required 2 units plasma and 2 units PRBC. Patient is scheduled for an EGD with possible banding on 06/22/18. Patient seen and examined in his room in the presence of his Sesar Main. Patient is alert and oriented to self, place and situation. Patient denies pain or any discomfort at this time. Introduced palliative care and its role in symptom management and establishment of goals of medical treatment. Obtained psychosocial, past medical history and events leading to this hospitalization. Patient's provided most of patient's medical history. Updated patient and his spouse on current medical status. Patient is never completed advanced directives. Patient inquisitive to no more about advanced directives as well as his . Explained [facility] statute in regards to decision maker in the event that patient is incapacitated when there is no healthcare surrogate or DURABLE POWER OF SALES SUPPORT REP designated. Patient completed and signed healthcare surrogate form today. He designated his spouse Etelvina Kaba is his healthcare surrogate and his daughter Homa Kaba as his alternate healthcare surrogate. Will provide patient a form of 5 wishes to review and complete when he wishes to do so. According to patient's , patient was asked with hepatitis C approximately a couple of years ago. At that time patient was undergoing radiation for prostate cancer and was unable to follow through with seeking treatment for hepatitis C. His health started failing in February, when he was still in [place] and had to be hospitalized for altered mentation, liver cirrhosis and required paracentesis. Patient relocated with his spouse in March, to [place] and since then patient has been fairly sick and unable to undergo hepatitis treatment outpatient. Patient has also had issues with health insurance. Patient and his spouse are aware of patient`s trajectory of illness. Expressed concern regarding complications that patient will most likely continue to face. Quality of life seems to be very important to patient. According to his , patient is an outgoing person and due to trajectory of decline lately he has not been himself and not able to do things he loved to do due to failing health. Patient states that he would not want to be in a vegetative state or in a position whereby he is not aware of his situation. Addressed CODE STATUS, discussed CPR limitations , complications and benefits. Patient with the support of his elected full code with further explanation to both patient and spouse what that entails. Patient and his spouse stated that at that time, if there is no hope of patient`s health improving then patient`s would not allow him to "only exist in a vegetative state". Patient`s spouse understands what DNR is but explains that if patient progressively deteriorates then they may have to rethink about code status. They are both aware that at this time prognosis is poor but would like to see if patient would improve if he receives outpatient treatment of Hepatitis C. Case discussed with bedside RN and Winter Varghese APRN. Function/Cognitive Trajectory: Patient was diagnosed with hepatitis about a year or two ago but at that time he was undergoing radiation treatment for prostate cancer. Due to insurance and financial issues he was not able to follow up with treatment. He has never had workup for liver transplant. Patient was hospitalized in February 2018 at [facility] in [place], [place]- underwent paracentesis with removal of 7 liters of peritoneal fluid. Patient has had about 3 hospitalizations and 2 emergency room visits since March 2018 at [facility]. Patient is independent of all his ADLs, he is ambulatory and is able to verbalize his needs. According to his spouse, he has been very fatigued and not able to participate in activities like fishing he usually enjoyed. His appetite had declined in the past few weeks and he he lost some weight, unable to quantify. Review of Systems Constitutional: Reports fatigue, Reports lack of energy, Reports weakness, Denies chills Eyes: Reports other (jaundice), Denies blurry vision, Denies double vision Ears, Nose, Mouth, and Throat: Denies abnormal hearing, Denies difficulty swallowing, Denies nasal congestion, Denies nasal discharge, Denies poor balance Cardiovascular: Reports generalized swelling, Reports leg swelling (hx of leg swelling in the past months), Denies chest pain, Denies shortness of breath, Denies shortness of breath with activity Respiratory: Denies chest congestion, Denies cough, Denies shortness of breath Gastrointestinal: Reports bloating, Reports nausea, Reports vomiting, Reports other (abdominal distention), Denies change in stools, Denies coffee ground vomit, Denies constipation, Denies incontinent of stools, Denies loose stools Genitourinary: Denies blood in urine, Denies urinary frequency, Denies urinary incontinence Musculoskeletal: Denies abnormal walking, Denies body aches, Denies limited joint movement Skin/Breast: Reports dry skin, Reports unusual bruising, Denies skin ulcer, Denies sores Neurologic: Reports confusion, Reports weakness, Denies abnormal hearing, Denies abnormal speech, Denies frequent falls Psychiatric: Reports change in appetite (decreased appetite), Reports confusion , Denies anxiety, Denies irritability Endocrine: Denies increased urination, Denies rapid, pounding, or irregular heartbeat Hematologic/Lymphatic: Reports easy bruising Review of system obtained from patient, family, electronic medical records and clinical observation. [facility] - History History Provided By: Significant Other - Medical History Medical History: Medical History (Last Updated 06/21/18 @ 09:45 by Marley Lopez) Atrial fibrillation Cirrhosis Hepatitis C Prostate cancer Psoriasis - Surgical History Surgical History: Surgical History (Last Updated 06/21/18 @ 09:45 by Marley Lopez) History of esophagogastroduodenoscopy (EGD) History of abdominal paracentesis (Resolved) H/O prostate biopsy - Family History Family History: Family History (Last Reviewed 06/14/18 @ 14:37 by Tati Whittington MD) Mother Family history of acute myocardial infarction - Tobacco History Second Hand Smoke Exposure: No Tobacco Use In Past 30 Days: No Smoking Status: Former smoker Tobacco Type: Cigarettes - Alcohol History How Often Do You Have a Drink Containing Alcohol: Monthly or less (hx of alcohol consumption-quit approximately in December,) - Substance Use History Substance History: No History of Abuse - Travel History Recent Travel in the [place] Within the Last 8 Weeks: No Recent Travel Out of the Country Within the Last 8 Weeks: No - Immunization History Tetanus Immunization: >5 Years Hx Influenza Vaccine This Season: No Medications and Allergies Active Medications: Active Medications Carvedilol (Coreg) 3.125 mg PO BID [facility] Last Admin: 06/21/18 08:09 Dose: 3.125 mg Cholestyramine Resin (Questran Light 4 Gm Pkt) 2 gm PO QID [facility] Last Admin: 06/21/18 08:09 Dose: 2 gm Diltiazem HCl (Cardizem) 30 mg PO QID [facility] Last Admin: 06/21/18 08:08 Dose: 30 mg Furosemide (Lasix) 20 mg PO BID@0900,1800 [facility] Last Admin: 06/21/18 08:12 Dose: 20 mg Hydroxyzine HCl (Atarax) 50 mg PO Q6H PRN PRN Reason: ITCHING Last Admin: 06/20/18 20:19 Dose: 50 mg Albumin Human (Flexbumin 25% Inj) 100 mls @ 60 mls/hr IV.SIG Q12H [facility] Last Infusion: 06/21/18 05:25 Dose: Infused Ceftriaxone Sodium 1,000 mg/ (Sodium Chloride) 100 mls @ 200 mls/hr IV.SIG Q24H [facility] Last Infusion: 06/20/18 14:30 Dose: Infused Lactulose (Lactulose Liq) 30 ml PO QID [facility] Last Admin: 06/21/18 08:08 Dose: 30 ml Ondansetron HCl (Zofran Inj) 4 mg IV.PUSH Q6H PRN PRN Reason: NAUSEA OR VOMITING Last Admin: 06/20/18 17:24 Dose: 4 mg Pantoprazole Sodium (Protonix) 40 mg PO DAILY [facility] Last Admin: 06/21/18 08:08 Dose: 40 mg Rifaximin (Xifaxan) 550 mg PO BID [facility] Last Admin: 06/21/18 08:08 Dose: 550 mg Spironolactone (Aldactone) 100 mg PO DAILY [facility] Last Admin: 06/21/18 08:08 Dose: 100 mg Tamsulosin HCl (Flomax) 0.4 mg PO DAILY [facility] Last Admin: 06/21/18 08:09 Dose: 0.4 mg Zinc Sulfate (Zinc-220) 220 mg PO DAILY [facility] Last Admin: 06/21/18 08:19 Dose: Not Given Allergies Allergy/AdvReac Type Severity Reaction Status Date / Time chlorhexidine Allergy Mild Rash Verified 06/12/18 16:45 Advance Directives Advance Directives Date on File: 06/21/18 Living Will: No Healthcare Surrogate: Yes Health Care Surrogate Name and Number: HCS: Etelvina Kaba [phone] Alt: SesarHoma [phone] Power of Food Safety Officer: No Today's verbally stated goals: Hopeful that he can get better and be discharged so that he can be started on Hep C treatment. . Family/friends goals: Spouse wants to patient to get better and hopefully be started on Hep C treatment outpatient. Ethical and Legal Issues: None identified at this time. . Physical Exam Vital Signs: Vital Signs - 24 hr 06/20/18 10:18 06/20/18 10:36 06/20/18 12:00 Temperature 98.2 F 97.9 F 97.7 F Pulse Rate 64 65 67 Respiratory Rate 16 16 17 Blood Pressure 112/57 L 110/55 L 109/56 L Pulse Oximetry 94 L 98 06/20/18 16:20 06/20/18 20:00 06/20/18 23:58 Temperature 97.7 F 98.4 F Pulse Rate 63 69 71 Respiratory Rate 18 17 Blood Pressure 111/61 122/58 L Pulse Oximetry 99 100 06/21/18 00:00 06/21/18 04:00 06/21/18 08:00 Temperature 98.3 F 97.6 F 98.4 F Pulse Rate 72 68 76 Respiratory Rate 17 17 16 Blood Pressure 105/56 L 114/56 L 117/50 L Pulse Oximetry 100 100 100 I&O: Intake & Output 06/19/18 06/20/18 06/21/18 06/22/18 06:59 06:59 06:59 06:59 Intake Total 1500 / 1500 1600 / 1600 1900 / 1900 Output Total 980 / 980 1200 / 1200 950 / 950 Balance 520 / 520 400 / 400 950 / 950 Weight 121 kg 121 kg 121 kg Physical Exam: CONSTITUTIONAL/GENERAL: This is an chronically ill patient who appears older than stated age, in no acute distress. TUBES/LINES/DRAINS: PIV, condom catheter SKIN: Dry skin. no rashes, or lesions. Ecchymoses on upper extremities. No wounds seen anteriorly. Skin temperature appropriate. Not diaphoretic. HEAD: Atraumatic. Normocephalic. EYES: Pupils equal and round and reactive. Extraocular motions intact. Slight scleral icterus. No injection or drainage. Fundi not examined. ENT: Hearing grossly normal. Nose without bleeding or purulent drainage. Missing teeth. Moist oral mucosa NECK: Trachea midline. Supple, nontender. CARDIOVASCULAR: Irregular rate and rhythm without murmurs, gallops, or rubs. No JVD. Peripheral pulses symmetric. RESPIRATORY/CHEST: Symmetric, unlabored respirations. Clear to auscultation. Breath sounds equal bilaterally. No wheezes, rales, or rhonchi. GASTROINTESTINAL: Abdomen soft, non-tender, distended. No guarding. Bowel sounds present. GENITOURINARY: Without palpable bladder distension. MUSCULOSKELETAL: Extremities without clubbing, cyanosis, or edema. No joint tenderness or effusion noted. No calf tenderness. No mottling or clubbing. LYMPHATICS: Did not assess. NEUROLOGICAL: Awake and alert, oriented to self, place and situation. Motor and sensory grossly within normal limits. Follows commands. Moves all extremities. PSYCHIATRIC: No obvious anxiety/depression. no apparent hallucinations or other psychotic thought process. Diagnostic Tests Laboratory: Laboratory Results - last 72 hr 06/19/18 06/19/18 06/19/18 15:40 23:50 23:50 WBC RBC Hgb Hct MCV MCH MCHC RDW Plt Count MPV Prelim Diff (Auto) Neut % (Auto) Lymph % (Auto) [place] % (Auto) Eos % (Auto) Baso % (Auto) Neut # (Auto) Lymph # (Auto) [place] # (Auto) Eos # (Auto) Baso # (Auto) WBC Differential Diff Scan Differential Comment Platelet Estimate Platelet Morphology Ovalocytes PT INR Sodium 138 Potassium 4.4 Chloride 109 H Carbon Dioxide 27.1 Anion Gap 2 L BUN 19 H Creatinine 1.74 H Estimated GFR 48 L Random Glucose 129 H Calcium 8.8 Magnesium 2.0 Total Bilirubin AST ALT Alkaline Phosphatase Ammonia Total Protein Albumin Urine Color Odilia Urine Clarity Cloudy H Urine pH 5.0 Ur Specific Neptune 1.019 Urine Protein Negative Urine Glucose (UA) Negative Urine Ketones Trace H Urine Occult Blood Moderate H Urine Nitrate Negative Urine Bilirubin Negative Urine Urobilinogen Less than 2 Ur Leukocyte Esterase Trace H Urine RBC 22 H Urine WBC 35 H Ur Squamous Epith Cells 1 Hyaline Casts 64 Urine Mucus Few H Micro UA Comment Culture indicated Ur Microscopic Review Not Reportable Urine Culture Comments Culture indicated Ur Random Creatinine 198 Ur Random Sodium 37 Blood Type Blood Type Recheck Antibody Screen MTS Gel Crossmatch 06/20/18 06/20/18 06/20/18 05:00 05:00 05:00 WBC 3.5 L RBC 1.72 L Hgb 6.3 L* Hct 18.7 L* MCV 108.8 H MCH 36.4 H MCHC 33.5 RDW 16.6 Plt Count 61 L MPV 8.9 Prelim Diff (Auto) Slide review pending Neut % (Auto) 64.5 Lymph % (Auto) 18.6 [place] % (Auto) 12.1 H Eos % (Auto) 4.0 Baso % (Auto) 0.8 Neut # (Auto) 2.3 Lymph # (Auto) 0.7 L [place] # (Auto) 0.4 Eos # (Auto) 0.1 Baso # (Auto) 0.0 WBC Differential . Diff Scan Auto diff confirmed Differential Comment . Platelet Estimate Low L Platelet Morphology Normal Ovalocytes 1+ H PT INR Sodium 139 Potassium 4.5 Chloride 107 Carbon Dioxide 24.0 Anion Gap 8 BUN 19 H Creatinine 1.78 H Estimated GFR 47 L Random Glucose 110 H Calcium 9.1 Magnesium Total Bilirubin 6.7 H AST 55 H ALT 37 Alkaline Phosphatase 72 Ammonia 55 H Total Protein 7.2 Albumin 2.9 L Urine Color Urine Clarity Urine pH Ur Specific [place] Urine Protein Urine Glucose (UA) Urine Ketones Urine Occult Blood Urine Nitrate Urine Bilirubin Urine Urobilinogen Ur Leukocyte Esterase Urine RBC Urine WBC Ur Squamous Epith Cells Hyaline Casts Urine Mucus Micro UA Comment Ur Microscopic Review Urine Culture Comments Ur Random Creatinine Ur Random Sodium Blood Type Blood Type Recheck Antibody Screen MTS Gel Crossmatch 06/20/18 06/20/18 06/20/18 07:59 07:59 15:23 WBC RBC Hgb 7.3 L Hct 21.4 L MCV MCH MCHC RDW Plt Count MPV Prelim Diff (Auto) Neut % (Auto) Lymph % (Auto) [place] % (Auto) Eos % (Auto) Baso % (Auto) Neut # (Auto) Lymph # (Auto) [place] # (Auto) Eos # (Auto) Baso # (Auto) WBC Differential Diff Scan Differential Comment Platelet Estimate Platelet Morphology Ovalocytes PT INR Sodium Potassium Chloride Carbon Dioxide Anion Gap BUN Creatinine Estimated GFR Random Glucose Calcium Magnesium Total Bilirubin AST ALT Alkaline Phosphatase Ammonia Total Protein Albumin Urine Color Urine Clarity Urine pH Ur Specific Neptune Urine Protein Urine Glucose (UA) Urine Ketones Urine Occult Blood Urine Nitrate Urine Bilirubin Urine Urobilinogen Ur Leukocyte Esterase Urine RBC Urine WBC Ur Squamous Epith Cells Hyaline Casts Urine Mucus Micro UA Comment Ur Microscopic Review Urine Culture Comments Ur Random Creatinine Ur Random Sodium Blood Type O Positive Cancelled Blood Type Recheck Cancelled Antibody Screen Negative Cancelled MTS Gel Crossmatch See Detail 06/21/18 06/21/18 06/21/18 07:50 07:50 07:55 WBC 3.3 L RBC 1.90 L Hgb 6.7 L* Hct 19.5 L* MCV 102.9 H D MCH 35.3 H MCHC 34.3 RDW 19.7 H D Plt Count 54 L MPV 9.0 Prelim Diff (Auto) Neut % (Auto) Lymph % (Auto) [place] % (Auto) Eos % (Auto) Baso % (Auto) Neut # (Auto) Lymph # (Auto) [place] # (Auto) Eos # (Auto) Baso # (Auto) WBC Differential Diff Scan Differential Comment Platelet Estimate Platelet Morphology Ovalocytes PT 23.9 H INR 2.4 Sodium 139 Potassium 4.4 Chloride 107 Carbon Dioxide 23.1 Anion Gap 9 BUN 21 H Creatinine 1.80 H Estimated GFR 46 L Random Glucose 93 Calcium 9.1 Magnesium Total Bilirubin AST ALT Alkaline Phosphatase Ammonia Total Protein Albumin Urine Color Urine Clarity Urine pH Ur Specific [place]ptune Urine Protein Urine Glucose (UA) Urine Ketones Urine Occult Blood Urine Nitrate Urine Bilirubin Urine Urobilinogen Ur Leukocyte Esterase Urine RBC Urine WBC Ur Squamous Epith Cells Hyaline Casts Urine Mucus Micro UA Comment Ur Microscopic Review Urine Culture Comments Ur Random Creatinine Ur Random Sodium Blood Type Blood Type Recheck Antibody Screen MTS Gel Crossmatch Result Diagrams: 06/22/18 06:40 06/22/18 06:40 Microbiology: Microbiology 06/19/18 23:50 Urine Culture - Preliminary Clean Catch Urine No growth in 24 hours Imaging: Chest X-Ray 06/12/18 16:57 CONCLUSION: No infiltrates seen. Abdomen Ultrasound 06/13/18 00:00 CONCLUSION: 1. Moderate amount of ascitic fluid. Abdomen/Bladder Ultrasound 06/13/18 00:00 CONCLUSION: 1. No evidence of hydronephrosis. 2. There is some increased echogenicity of the renal parenchyma of the right kidney suggestive of chronic medical renal disease. 3. There is evidence of ascites. Head CT 06/14/18 00:00 CONCLUSION: 1. No acute intracranial abnormality. . Paracentesis Ultrasound 06/16/18 00:00 CONCLUSION: 1. Uncomplicated paracentesis. Abdomen/Pelvis CT 06/17/18 17:58 CONCLUSION: 1. Cirrhosis. 2. Moderate amount ascites. 3. Small gallstone in the gallbladder. Gallbladder collapsed. Procedures: 06/16/18-paracentesis with removal of 8400 mL's of peritoneal fluid Patient/Family Conference Family Conference Location: Bedside Issues Discussed: * Palliative care role, purpose, approach * Additional medical, psychosocial, and spiritual history * Patients general health, functional status, and cognitive changes in the months leading up to the current hospitalization * Patient/family understanding of the current medical problems * Patient/family understanding of prognosis * Patients goals of care as best understood from advance directives and/or conversations and/or values * Current medical treatment options and benefits/burdens of those options * Likely scenarios comparing ongoing aggressive care with a transition to comfort measures only * Questions answered to the best of my ability * Palliative care contact information provided Assessment and Plan - Disease Oriented Problem List (1) Hyperammonemia (2) Liver cirrhosis (3) Hepatitis C (4) Anemia (5) Hepatorenal syndrome (6) Acute kidney injury (7) Urinary tract infection due to Klebsiella species (8) Atrial fibrillation - Symptom Scale (1) Encephalopathy 0-10 Scale: Unable to quantify Comment: Patient has history of liver cirrhosis with recurrent ascites. Came in with c/o altered mentation and has hyperammonemia. (2) Physical deconditioning 0-10 Scale: Unable to quantify Comment: Progressive. Multiple hospitalizations in a short period of time. Pertinent Non-Medical Issues: Psychosocial: Patient is originally from [place]. He relocated to [facility] March 2018 after an opening for Elderly Housing became available. Patient is to his current Etelvina Kaba for 35 years and they have known each other for 45 years. 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 Patient has 1 biological daughter and one stepdaughter. Spiritual: Patient is [employer]ational-requesting contact center associate services. Legal: Completed and signed healthcare surrogate form today. Patient will be provided with a copy of 5 wishes to complete at his own time. Ethical issues impacting care: None identified at this time. Important Contacts: Healthcare surrogate -spouse-Etelvina Kaba [phone] Alternate healthcare surrogate-daughter- Homa Kaba [phone] . Prognosis: Mr. Kaba is a 63-year-old patient with a medical history significant for hepatitis C, liver cirrhosis, atrial fibrillation, prostate cancer and psoriasis. Patient presented to the emergency room on 06/12/18 for evaluation of altered mental status. In the emergency room patient`s spouse reported that patient had been fatigued, weak, had decreased oral intake and distended abdomen. Clinical course complicated with persistent altered mental status, and anemia requiring blood transfusion. Given multiple ongoing comorbidities, patient remains at high risk for further complications, deterioration and decline. Code Status: Full Code Plan: PLAN: Legal decision maker: Patient appears to have insight regarding his medical condition and appears to be able to participate in medical decision making. Due to intermittent confusion, recommending shared decision-making with his spouse Mandy Kabaila whom he has designated as his healthcare surrogate. He also designated his daughter Homa Kaba is his alternate healthcare surrogate. Goals: Aggressive. Patient and spouse have an understanding of patient`s poor prognosis but would like to continue with aggressive treatment.Patient with the support of his elected full code with further explanation to both patient and spouse what that entails. Patient and his spouse stated that at that time, if there is no hope of patient`s health improving then patient`s would not allow him to "only exist in a vegetative state". Patient`s spouse understands what DNR is but explains that if patient progressively deteriorates then they may have to rethink about code status. They are both aware that at this time prognosis is poor but would like to see if patient would improve if he receives outpatient treatment of Hepatitis C. CODE STATUS: Full code SYMPTOMS: * Encephalopathy: Patient has history of liver cirrhosis with recurrent ascites. Came in with c/o altered mentation and has hyperammonemia. Last ammonia level on 06/20/18 was 55. Encephalopathy most likely due to hyperammonemia and urinary tract infection. Today patient is alert and oriented x3, with some forgetfulness. Patient seems to be improving, currently on lactulose and treatment for UTI with ceftriaxone. Continue to monitor. * Physical deconditioning: Progressive. Multiple hospitalizations in a short period of time. History of hepatitis C, cirrhosis, recurrent ascites. Patient` s health he has been progressively declining in the past few months. Patient is unable to participate in activities he usually was able to due to fatigue, weakness. Physical therapy consulted. With multiple comorbidities, patient will most likely continue to deteriorate and decline. Palliative care will continue to follow the patient during hospital course as condition evolves, to assist patient/decision-maker with understanding of their medical conditions, weighing benefits/burdens of treatment options, for clarification of goals of treatment. Additionally will assist with any symptoms of palliative concern Appreciation Thank you for the opportunity to participate in the care of Eduardo Kaba. Attestation Attestation: To help prompt me to consider important information that might be impacting today's encounter and assessment, information from prior notes written by myself or my colleagues may have been "brought forward" into today's note. My signature on this note, however, is an attestation that I personally performed the exam, history, and/or decision-making noted today, and, unless otherwise indicated, the interactions with patient, family, and staff as well as the review of records all occurred today. I also attest that the listed assessment and stated plan reflect my best clinical judgment today based on the combination of historical information, prior notes, and today's exam/ interactions. When time spent is documented, it refers only to time spent today by the signer, or if indicated, combined time spent today by collaborating physician/nurse practitioner.
--- NOTE | 2018-06-21 11:47 | P.PNGI ---
Subjective Interval history: Patient laying comfortably in bed, states he slept well last evening. Spouse at bedside, discussed plan of care due to noted hemoglobin and hematocrit. Plan for EGD with possible banding. <Gena Rausch - Last Filed: 06/21/18 11:39> Physical Exam Vital signs: Vital Signs 06/20/18 12:00 06/20/18 16:20 06/20/18 20:00 Temperature 97.7 F 97.7 F 98.4 F Pulse Rate 67 63 69 Respiratory Rate 17 18 17 Blood Pressure 109/56 L 111/61 122/58 L Pulse Oximetry 98 99 100 06/20/18 23:58 06/21/18 00:00 06/21/18 04:00 Temperature 98.3 F 97.6 F Pulse Rate 71 72 68 Respiratory Rate 17 17 Blood Pressure 105/56 L 114/56 L Pulse Oximetry 100 100 06/21/18 08:00 Temperature 98.4 F Pulse Rate 76 Respiratory Rate 16 Blood Pressure 117/50 L Pulse Oximetry 100 Intake & Output 06/20/18 06/21/18 06/21/18 18:59 06:59 18:59 Intake Total 1320 / 1320 580 / 580 Output Total 350 / 350 600 / 600 Balance 970 / 970 -20 / -20 Weight 121 kg Intake: IV 200 / 200 100 / 100 Flexbumin 25% Inj 100 ML @ 60 100 / 100 100 / 100 mls/hr IV.SIG Q12H [facility] Rx#: [id number] Rocephin Inj 1,000 MG In NS Inj 100 / 100 100 ML @ 200 mls/hr IV.SIG Q24H [facility] Rx#:[id number] Oral 720 / 720 480 / 480 Intake (Blood Product) Amt 400 / 400 Rbc As-3 Leukoreduced Unit 400 / 400 [id number] Output: Urine 350 / 350 600 / 600 Other: Date of Last Bowel Movement 06/19/18 # Bowel Movements 4 - Constitutional no acute distress - Routine HEENT Exam Head: Present: normocephalic Eye: Present: conjunctival icterus - Routine Respiratory Exam Present: CTA bilaterally. Absent: accessory muscle use - Routine Cardiovascular Exam Present: RRR - Routine Abdominal Exam Present: soft, normoactive bowel sounds, distended. Absent: tenderness, guarding, firm - Routine Extremities Exam Present: full ROM, pulses intact. Absent: edema - Routine Skin Exam Present: dry, warm - Routine Neurological Exam Present: alert, oriented X3 - Routine Psychiatric Exam Present: normal affect, cooperative - Urinary Catheter Management Straight Cath placed during this visit: yes Reason for continuing: Not indwelling catheter Insertion date: 06/12/18 Insertion time: 19:10 <Gena Rausch - Last Filed: 06/21/18 11:39> Vital signs: Vital Signs 06/20/18 23:58 06/21/18 00:00 06/21/18 04:00 Temperature 98.3 F 97.6 F Pulse Rate 71 72 68 Respiratory Rate 17 17 Blood Pressure 105/56 L 114/56 L Pulse Oximetry 100 100 06/21/18 08:00 06/21/18 12:00 06/21/18 16:00 Temperature 98.4 F 97.8 F 98.4 F Pulse Rate 76 67 69 Respiratory Rate 16 17 16 Blood Pressure 117/50 L 126/59 L 116/58 L Pulse Oximetry 100 100 100 Intake & Output 06/21/18 06/21/18 06/22/18 06:59 18:59 06:59 Intake Total 580 / 580 100 / 100 Output Total 600 / 600 Balance -20 / -20 100 / 100 Weight 121 kg Intake: IV 100 / 100 100 / 100 Flexbumin 25% Inj 100 ML @ 60 100 / 100 mls/hr IV.SIG Q12H [facility] Rx#: [id number] Rocephin Inj 1,000 MG In NS Inj 100 / 100 100 ML @ 200 mls/hr IV.SIG Q24H [facility] Rx#:[id number] Oral 480 / 480 Output: Urine 600 / 600 Other: # Bowel Movements 4 - Urinary Catheter Management Straight Cath placed during this visit: no <Vonnie Escobar - Last Filed: 06/21/18 21:05> Results - Labs CBC & Chem 7: 06/21/18 07:50 06/21/18 07:50 Laboratory Results - last 24 hr 06/20/18 06/20/18 06/21/18 07:59 15:23 07:50 WBC 3.3 L RBC 1.90 L Hgb 7.3 L 6.7 L* Hct 21.4 L 19.5 L* MCV 102.9 H D MCH 35.3 H MCHC 34.3 RDW 19.7 H D Plt Count 54 L MPV 9.0 PT INR Sodium Potassium Chloride Carbon Dioxide Anion Gap BUN Creatinine Estimated GFR Random Glucose Calcium MTS Gel Crossmatch See Detail 06/21/18 06/21/18 07:50 07:55 WBC RBC Hgb Hct MCV MCH MCHC RDW Plt Count MPV PT 23.9 H INR 2.4 Sodium 139 Potassium 4.4 Chloride 107 Carbon Dioxide 23.1 Anion Gap 9 BUN 21 H Creatinine 1.80 H Estimated GFR 46 L Random Glucose 93 Calcium 9.1 MTS Gel Crossmatch Microbiology 06/19/18 23:50 Clean Catch Urine Urine Culture - Preliminary No growth in 24 hours <Gena Rausch - Last Filed: 06/21/18 11:39> - Labs CBC & Chem 7: 06/21/18 07:50 06/21/18 07:50 Laboratory Results - last 24 hr 06/21/18 06/21/18 06/21/18 07:50 07:50 07:55 WBC 3.3 L RBC 1.90 L Hgb 6.7 L* Hct 19.5 L* MCV 102.9 H D MCH 35.3 H MCHC 34.3 RDW 19.7 H D Plt Count 54 L MPV 9.0 PT 23.9 H INR 2.4 Sodium 139 Potassium 4.4 Chloride 107 Carbon Dioxide 23.1 Anion Gap 9 BUN 21 H Creatinine 1.80 H Estimated GFR 46 L Random Glucose 93 Calcium 9.1 Ammonia 06/21/18 19:28 WBC RBC Hgb Hct MCV MCH MCHC RDW Plt Count MPV PT INR Sodium Potassium Chloride Carbon Dioxide Anion Gap BUN Creatinine Estimated GFR Random Glucose Calcium Ammonia 79 H Microbiology 06/19/18 23:50 Clean Catch Urine Urine Culture - Preliminary No growth in 24 hours <Vonnie Escobar - Last Filed: 06/21/18 21:05> Assessment and Plan (1) Ascites of liver Status: Chronic Code(s): R18.8 - Other ascites (2) Encephalopathy Status: Acute Code(s): G93.40 - Encephalopathy, unspecified - Plan Ascites Paracentesis done 06/16/2018, 8400 cc peritoneal fluid removed. Less distention noted. Patient denies any abdominal discomfort's of breath. Patient currently on Lasix 20 mg twice daily and Aldactone 100 mg daily. Encephalopathy Patient awake, alert and oriented and appropriate. Patient currently on zinc 220 mg daily , rifaximin 550 mg twice daily and lactulose 30 mL's 4 times daily. 06/14/2018 ammonia level 46. Hepatitis C Plan for outpatient treatment Anemia 06/17/2018 hemoglobin 7.2 hematocrit 21.1 platelet count 56. Patient and spouse deny any noted active bleeding. 06/20/2018 Ascites Post paracentesis on 06/16/2018. Patient denies any abdominal pain or shortness of breath. Currently on Lasix 20 mg twice daily and Aldactone 100 mg daily. Encephalopathy Patient awake alert and oriented. Ammonia level this a.m. 55. Zinc, Xifaxan, and lactulose Hepatitis C Treatment as outpatient planned Anemia Hemoglobin 6.3 hematocrit 18.7. Patient being transfused as needed today. Patient denies any noted active bleeding. 06/21/2018 Ascites Patient denies abdominal pain or shortness of breath. Abdomen soft nontender, currently on Lasix//Aldactone daily. Anemia/coagulopathy Hemoglobin 6.7 hematocrit 19.5 platelet count 54 INR 2.4. FFP 3 units ordered to be given on 06/22/2018 at 0300. Will evaluate for possible bleeding varices , plan for EGD with possible banding in the a.m. Plan -Clear liquid lunch and dinner today -N.p.o. after midnight -Obtain consent for EGD with possible banding-planned for tomorrow -Continue PPI -Continue rifaximin, spironolactone, Lasix, zinc and lactulose -Monitor for any bleeding -Supportive care -Further recommendations to follow based on patient status and findings This patient has been seen by myself and Dr. Escobar and this note is written on her behalf. - Attending Attestation Dr. Escobar <Gena Rausch - Last Filed: 06/21/18 11:39> (1) Ascites of liver Status: Chronic Code(s): R18.8 - Other ascites (2) Encephalopathy Status: Acute Code(s): G93.40 - Encephalopathy, unspecified - Attending Attestation seen, examined agree with above <Vonnie Escobar - Last Filed: 06/21/18 21:05>
--- NOTE | 2018-06-21 12:20 | P.PN ---
Subjective Interval history: Follow-up for hepatic encephalopathy, cirrhosis, anemia-patient seen and examined, more awake, alert oriented x3. Heart rate better controlled, 60s- 70s. No chest pain, shortness of breath. Received 1 unit of blood yesterday, hemoglobin went up to 7.3, this morning back to 6.7. No blood in the stool, had 2 bowel movements. No hematemesis. No abdominal pain. Eating well. No fever. at bedside Physical Exam Vital signs: Vital Signs 06/20/18 16:20 06/20/18 20:00 06/20/18 23:58 Temperature 97.7 F 98.4 F Pulse Rate 63 69 71 Respiratory Rate 18 17 Blood Pressure 111/61 122/58 L Pulse Oximetry 99 100 06/21/18 00:00 06/21/18 04:00 06/21/18 08:00 Temperature 98.3 F 97.6 F 98.4 F Pulse Rate 72 68 76 Respiratory Rate 17 17 16 Blood Pressure 105/56 L 114/56 L 117/50 L Pulse Oximetry 100 100 100 Intake & Output 06/20/18 06/21/18 06/21/18 18:59 06:59 18:59 Intake Total 1320 / 1320 580 / 580 Output Total 350 / 350 600 / 600 Balance 970 / 970 -20 / -20 Weight 121 kg Intake: IV 200 / 200 100 / 100 Flexbumin 25% Inj 100 ML @ 60 100 / 100 100 / 100 mls/hr IV.SIG Q12H [facility] Rx#: [id number] Rocephin Inj 1,000 MG In NS Inj 100 / 100 100 ML @ 200 mls/hr IV.SIG Q24H [facility] Rx#:[id number] Oral 720 / 720 480 / 480 Intake (Blood Product) Amt 400 / 400 Rbc As-3 Leukoreduced Unit 400 / 400 [id number] Output: Urine 350 / 350 600 / 600 Other: Date of Last Bowel Movement 06/19/18 # Bowel Movements 4 Narrative: GENERAL: Well-nourished 63-year-old black male, chronically ill-appearing. SKIN: Warm and dry. HEAD: Atraumatic. Normocephalic. EYES: Pupils equal and round. Positive scleral icterus. No injection or drainage. ENT: No nasal bleeding or discharge. Mucous membranes pink and moist. NECK: Trachea midline. No JVD. CARDIOVASCULAR: S1-S2, irregularly irregular. Unable to detect any murmurs, no rubs, no gallops. RESPIRATORY: No accessory muscle use. Clear to auscultation. Breath sounds equal bilaterally. GASTROINTESTINAL: Abdomen soft, non-tender, nondistended. Hepatic and splenic margins not palpable. MUSCULOSKELETAL: Extremities without clubbing, cyanosis, or edema. No obvious deformities. NEUROLOGICAL: Awake, oriented x3. No focal deficits. Speech is clear. PSYCHIATRIC: Appropriate mood and affect; insight and judgment normal. - Urinary Catheter Management Straight Cath placed during this visit: yes Reason for continuing: Not indwelling catheter Insertion date: 06/12/18 Insertion time: 19:10 Results - Labs CBC & Chem 7: 06/21/18 07:50 06/21/18 07:50 Laboratory Results - last 24 hr 06/20/18 06/20/18 06/21/18 07:59 15:23 07:50 WBC 3.3 L RBC 1.90 L Hgb 7.3 L 6.7 L* Hct 21.4 L 19.5 L* MCV 102.9 H D MCH 35.3 H MCHC 34.3 RDW 19.7 H D Plt Count 54 L MPV 9.0 PT INR Sodium Potassium Chloride Carbon Dioxide Anion Gap BUN Creatinine Estimated GFR Random Glucose Calcium MTS Gel Crossmatch See Detail 06/21/18 06/21/18 07:50 07:55 WBC RBC Hgb Hct MCV MCH MCHC RDW Plt Count MPV PT 23.9 H INR 2.4 Sodium 139 Potassium 4.4 Chloride 107 Carbon Dioxide 23.1 Anion Gap 9 BUN 21 H Creatinine 1.80 H Estimated GFR 46 L Random Glucose 93 Calcium 9.1 MTS Gel Crossmatch Microbiology 06/19/18 23:50 Clean Catch Urine Urine Culture - Preliminary No growth in 24 hours Assessment and Plan - Assessment (1) Hepatorenal syndrome Code(s): K76.7 - Hepatorenal syndrome Status: Acute (2) Hyperammonemia Code(s): E72.20 - Disorder of urea cycle metabolism, unspecified Status: Acute (3) Hepatic encephalopathy Code(s): K72.90 - Hepatic failure, unspecified without coma Status: Acute (4) Liver disease, chronic, with cirrhosis Code(s): K74.60 - Unspecified cirrhosis of liver; K76.9 - Liver disease, unspecified Status: Chronic (5) Altered mental status Code(s): R41.82 - Altered mental status, unspecified Status: Acute (6) Atrial fibrillation Code(s): I48.91 - Unspecified atrial fibrillation Status: Chronic (7) Acute kidney injury Code(s): N17.9 - Acute kidney failure, unspecified Status: Acute (8) Anemia Code(s): D64.9 - Anemia, unspecified Status: Acute - Plan 63-year-old black male admitted for acute renal failure, metabolic encephalopathy. Hx of Cirrhosis. Other metabolic causes have been ruled out for his encephalopathy. CT head is negative, B12 was unremarkable, electrolytes otherwise unremarkable. Overall meld score is 33 giving about a 50 % mortality in about 3 months. Patient and are aware of this prognosis. Chronic hepatic encephalopathy-Slowed mentation is evident, likely secondary to hepatic failure and azotemia Continue treating underlying problems of hepatic failure and acute renal failure -zinc, continue lactulose and rifaximin Hepatitis C/cirrhosis/ascites/hyperbilirubinemia -Status post paracentesis with 8.4 L removed on 06/16 - Questran, Benadryl - Coreg, spironolactone -Meld scores greater than 30, poor prognosis Hepatorenal syndrome -Likely secondary to dehydration 2/2 lactulose and/or third spacing with cirrhosis -Do not anticipate further significant improvement secondary to liver disease -Albumin 25 gm IV BID -Appreciate nephrology input Klebsiella UTI On Rocephin, will dc today, start Ceftin 250 mg po bid x 3 days. generalized weakness -Likely multifactorial including metabolic encephalopathy element PT/OT/ST Symptomatic anemia, poss combination of chronic disease, poss slow variceal bleed. Hx of varices, had EGD in March 2018, had banding. -S/P 1 units PRBC 06/20, Hgb 6.3, went up to 7.3 after. -HH again dropped today, 6.7/19.5, 2 units PRBC have been ordered. -D/W GI, Gena Rausch, concerned pt. may be bleeding. EGD will be ordered. NPO after Midnight. Atrial fibrillation Was having occasional episodes of tachycardia, heart rate up to 140s. HR improved, remains 60-70s, -Continue Coreg 3.125 mg p.o. twice daily -Continue Cardizem 30 mg p.o. 4 times daily. -Patient not on systemic anticoagulation due to bleeding risk Coagulopathy, INR 2.0 -given vitamin K 2.5 mg p.o. x1 06/20, INR today 2.4. GI to give FFP in am before EGD Palliative care input appreciated, d/w Marley LATHAM. At this time goals remain aggressive however, both realistic of poor outcome if he goes into cardiac arrest. They will revisit code status if he continues to decline. Labs in am Code Status: Full code Discussed Condition With: RN, patient and his , case management, palliative care nurse practitioner- Marley. NORBERT LATHAM -Gena Rausch Discharge Planning: Home with [facility], CM working on securing a few visits. Pt. is a self pay. Not safe for dc yet. (5) Altered mental status Qualifiers: Altered mental status type: transient alteration of awareness Qualified Code( s): R40.4 - Transient alteration of awareness (6) Atrial fibrillation Qualifiers: Atrial fibrillation type: paroxysmal Qualified Code(s): I48.0 - Paroxysmal atrial fibrillation (8) Anemia Qualifiers: Anemia type: unspecified type Qualified Code(s): D64.9 - Anemia, unspecified
--- NOTE | 2018-06-21 18:34 | P.PNNP ---
Subjective Interval history: patient is tired Physical Exam Vital signs: Vital Signs 06/20/18 20:00 06/20/18 23:58 06/21/18 00:00 Temperature 98.4 F 98.3 F Pulse Rate 69 71 72 Respiratory Rate 17 17 Blood Pressure 122/58 L 105/56 L Pulse Oximetry 100 100 06/21/18 04:00 06/21/18 08:00 06/21/18 12:00 Temperature 97.6 F 98.4 F 97.8 F Pulse Rate 68 76 67 Respiratory Rate 17 16 17 Blood Pressure 114/56 L 117/50 L 126/59 L Pulse Oximetry 100 100 100 06/21/18 16:00 Temperature 98.4 F Pulse Rate 69 Respiratory Rate 16 Blood Pressure 116/58 L Pulse Oximetry 100 Intake & Output 06/20/18 06/21/18 06/21/18 18:59 06:59 18:59 Intake Total 1320 / 1320 580 / 580 100 / 100 Output Total 350 / 350 600 / 600 Balance 970 / 970 -20 / -20 100 / 100 Weight 121 kg Intake: IV 200 / 200 100 / 100 100 / 100 Flexbumin 25% Inj 100 ML @ 60 100 / 100 100 / 100 mls/hr IV.SIG Q12H [facility] Rx#: [id number] Rocephin Inj 1,000 MG In NS Inj 100 / 100 100 / 100 100 ML @ 200 mls/hr IV.SIG Q24H [facility] Rx#:[id number] Oral 720 / 720 480 / 480 Intake (Blood Product) Amt 400 / 400 Rbc As-3 Leukoreduced Unit 400 / 400 [id number] Output: Urine 350 / 350 600 / 600 Other: Date of Last Bowel Movement 06/19/18 # Bowel Movements 4 Narrative: GENERAL: Well-nourished 63-year-old black male, chronically ill-appearing. SKIN: Warm and dry. HEAD: Atraumatic. Normocephalic. EYES: Pupils equal and round. Positive scleral icterus. No injection or drainage. ENT: No nasal bleeding or discharge. Mucous membranes pink and moist. NECK: Trachea midline. No JVD. CARDIOVASCULAR: S1-S2, irregularly irregular. Unable to detect any murmurs, no rubs, no gallops. RESPIRATORY: No accessory muscle use. Clear to auscultation. Breath sounds equal bilaterally. GASTROINTESTINAL: Abdomen soft, non-tender, nondistended. Hepatic and splenic margins not palpable. MUSCULOSKELETAL: Extremities without clubbing, cyanosis, or edema. No obvious deformities. NEUROLOGICAL: Awake, oriented x3. No focal deficits. Speech is clear. PSYCHIATRIC: Appropriate mood and affect; insight and judgment normal. - Urinary Catheter Management Straight Cath placed during this visit: yes Reason for continuing: Not indwelling catheter Insertion date: 06/12/18 Insertion time: 19:10 Assessment and Plan - Assessment (1) Acute kidney injury Code(s): N17.9 - Acute kidney failure, unspecified Status: Acute (2) Hyperammonemia Code(s): E72.20 - Disorder of urea cycle metabolism, unspecified Status: Acute (3) Hepatic encephalopathy Code(s): K72.90 - Hepatic failure, unspecified without coma Status: Acute (4) Coagulopathy Code(s): D68.9 - Coagulation defect, unspecified Status: Acute - Plan Patient with hepatorenal syndrome we will check your urine sodium and creatinine , on albumin 25 g IV every 12 hourly On treatment for hepatic encephalopathy total bilirubin still high creatinine 1.8 had paracentesis 06/16 fluid removed Patient creatinine declined to 1.8, received blood transfusion D/W the at bed side. Poor prognosis
[2018-06-22] MEDS: Albumin Human 25% Inj 100 ML IV.SIG SCH ×2 (03:05→19:31)
[2018-06-22] MEDS ORDERED: Metoprolol Tartrate 25 MG Tablet PO ONE (07:12)
[2018-06-22 07:48] LABS: Mean Corpuscular HGB Conc 34.7 % (32.0-36.0); Mean Corpuscular Hemoglobin 35.7 pg (27.0-34.0); Mean Corpuscular Volume 102.9 fL (80.0-100.0); Mean Platelet Volume 8.4 fL (7.0-11.0); Platelet Count 45 th/mm3 (150-450); Red Blood Count 1.73 mil/mm3 (4.50-5.90); Red Cell Distribution Width 19.4 % (11.6-17.2); White Blood Count 3.1 th/mm3 (4.0-11.0)
[2018-06-22 07:53] LABS: INR 1.9 Ratio
[2018-06-22 07:56] LABS: Hemoglobin 6.2 gm/dL (13.0-17.0)
[2018-06-22 07:57] LABS: Hematocrit 17.8 % (39.0-51.0)
[2018-06-22] MEDS ORDERED: Sodium Chlor 0.9% Inj 500 ML IV.SIG SCH (08:00)
[2018-06-22 08:12] LABS: Calcium 9.5 mg/dL (8.5-10.1); Carbon Dioxide 22.5 meq/L (21.0-32.0); Potassium 4.2 meq/L (3.5-5.1)
[2018-06-22] MEDS ORDERED: Sodium Chlor 0.9% Inj 250 ML IV.SIG SCH (09:00)
[2018-06-22] MEDS ORDERED: Lidocaine PF 1% Inj 5 ML Syringe OTHER ONE (11:26)
--- NOTE | 2018-06-22 11:59 | GIPROC ---
[facility] [address] [facility]. 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 TOPICAL ANESTHETIC: none CONSENT: The patient understands the risks and benefits of the procedure and understands that these risks include, but are not limited to: sedation, allergic reaction, infection, perforation and/or bleeding. Alternative means of evaluation and treatment include, among others: physical exam, x-rays, and/or surgical intervention. The patient elects to proceed with this endoscopic procedure. medical equipment was checked for proper function. Hand hygiene and appropriate measures for infection prevention was taken. After the risks, benefits and alternatives of the procedure were thoroughly explained, Informed consent was verified, confirmed and timeout was successfully executed by the treatment team. The patient was anesthetized with topical anesthesia and the Pentax [id number] endoscope was introduced through the mouth and advanced to the second portion of the duodenum. Retroflexed views revealed a hiatal hernia The gastroscope was then slowly withdrawn and removed. Portal gastrpathy esophageal varices grade 2-s/p banding =3. ADVERSE EVENTS: There were no complications. IMPRESSIONS: 1. 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 Retroflexed views revealed a hiatal hernia RECOMMENDATIONS: Clear liquid diet transfuse 2 units of prbc ocreotide drip start nonselecive betablockers upon dc if still anemic-colonoscopy , hematology consult PATIENT CONDITION: stable DISPOSITION: Inpatient REPEAT EXAM: Return 3 months EGD with banding Vonnie Escobar MD eSigned: Vonnie Escobar MD 06/22/2018 11:58 AM cc:
[2018-06-22] MEDS ORDERED: Octreotide Inj 500 MCG/ML Vial IV.CONT SCH (13:00)
--- NOTE | 2018-06-22 13:30 | P.PN ---
Subjective Interval history: Follow-up for hepatic encephalopathy, cirrhosis, anemia-patient seen and examined, awake, oriented x 3. Tremulous. Just got back from EGD, had banding of varices. No active bleeding, HH dropped again 6.2/17.8. INR 1.9 today, received FFP overnight. No nausea, no vomiting. No family at bsd Physical Exam Vital signs: Vital Signs 06/21/18 16:00 06/21/18 20:00 06/22/18 00:00 Temperature 98.4 F 98.6 F 98.6 F Pulse Rate 69 72 65 Respiratory Rate 16 18 18 Blood Pressure 116/58 L 138/62 128/58 L Pulse Oximetry 100 100 98 06/22/18 02:54 06/22/18 03:13 06/22/18 04:10 Temperature 98.1 F 99.3 F Pulse Rate 71 70 Respiratory Rate 18 18 Blood Pressure 140/62 132/60 Pulse Oximetry 100 100 98 06/22/18 04:17 06/22/18 05:16 06/22/18 06:26 Temperature 99.3 F 97.3 F L 98.2 F Pulse Rate 73 70 73 Respiratory Rate 18 20 20 Blood Pressure 132/60 132/63 131/60 Pulse Oximetry 100 98 99 06/22/18 09:29 06/22/18 09:53 06/22/18 10:09 Temperature 98.7 F 98 F Pulse Rate 70 71 70 Respiratory Rate 18 18 18 Blood Pressure 130/58 L 130/58 L 119/63 Pulse Oximetry 100 100 100 06/22/18 10:22 06/22/18 10:25 06/22/18 10:39 Temperature 98.7 F 98.5 F Pulse Rate 70 71 71 Respiratory Rate 18 17 18 Blood Pressure 117/58 L 121/57 L Pulse Oximetry 100 100 100 06/22/18 10:44 06/22/18 12:05 06/22/18 12:10 Temperature 98.2 F Pulse Rate 70 71 68 Respiratory Rate 19 16 Blood Pressure 126/58 L 120/60 Pulse Oximetry 100 98 06/22/18 12:15 06/22/18 12:20 06/22/18 12:30 Temperature 98 F Pulse Rate 69 67 68 Respiratory Rate 17 16 17 Blood Pressure 117/62 116/65 118/63 Pulse Oximetry 97 100 100 Intake & Output 1006/22/18 06/22/18 18:59 06:59 18:59 Intake Total 200 / 200 806 / 806 0 / 0 Output Total 150 / 150 Balance 200 / 200 806 / 806 -150 / -150 Weight 116.6 kg Intake: IV 200 / 200 100 / 100 Flexbumin 25% Inj 100 ML @ 60 100 / 100 100 / 100 mls/hr IV.SIG Q12H SHOSHANA Rx#: [id number] Rocephin Inj 1,000 MG In NS Inj 100 / 100 100 ML @ 200 mls/hr IV.SIG Q24H SHOSHANA Rx#:[id number] Intake (Blood Product) Amt 706 / 706 0 / 0 Plasma Thawed 5 Day Cp2d Unit 329 / 329 [id number] Plasma Thawed 5 Day Cp2d Unit 0 / 0 [id number] Plasma Thawed 5 Day Cp2d Unit 192 / 192 [id number] Plasma Thawed 5 Day Cp2d Unit 185 / 185 [id number] Plt Pheresis A Leukored Pas 0 / 0 Unit [id number] Output: Urine 150 / 150 Other: # Voids 2 Narrative: GENERAL: Well-nourished 63-year-old black male, chronically ill-appearing. SKIN: Warm and dry. HEAD: Atraumatic. Normocephalic. EYES: Pupils equal and round. Positive scleral icterus. No injection or drainage. ENT: No nasal bleeding or discharge. Mucous membranes pink and moist. NECK: Trachea midline. No JVD. CARDIOVASCULAR: S1-S2, irregularly irregular. Unable to detect any murmurs, no rubs, no gallops. RESPIRATORY: No accessory muscle use. Clear to auscultation. Breath sounds equal bilaterally. GASTROINTESTINAL: Abdomen soft, non-tender, nondistended. Hepatic and splenic margins not palpable. MUSCULOSKELETAL: Extremities without clubbing, cyanosis, or edema. No obvious deformities. NEUROLOGICAL: Awake, oriented x3. No focal deficits. Speech is clear. Mild tremors. PSYCHIATRIC: Appropriate mood and affect; insight and judgment normal. - Urinary Catheter Management Straight Cath placed during this visit: yes Reason for continuing: Not indwelling catheter Insertion date: 06/12/18 Insertion time: 19:10 Results - Labs CBC & Chem 7: 06/22/18 06:40 06/22/18 06:40 Laboratory Results - last 24 hr 10/16/18 10/17/18 10/17/18 07:59 19:28 22:17 WBC RBC Hgb Hct MCV MCH MCHC RDW Plt Count MPV PT INR Sodium Potassium Chloride Carbon Dioxide Anion Gap BUN Creatinine Estimated GFR Random Glucose Calcium Ammonia 79 H MTS Gel Crossmatch See Detail Blood Bank Comment Bld Prod Order Comment 06/22/18 06/22/18 06/22/18 06:40 06:40 07:17 WBC 3.1 L RBC 1.73 L Hgb 6.2 L* Hct 17.8 L* MCV 102.9 H MCH 35.7 H MCHC 34.7 RDW 19.4 H Plt Count 45 L MPV 8.4 PT 19.0 H INR 1.9 Sodium 138 Potassium 4.2 Chloride 106 Carbon Dioxide 22.5 Anion Gap 10 BUN 21 H Creatinine 1.85 H Estimated GFR 45 L Random Glucose 104 Calcium 9.5 Ammonia MTS Gel Crossmatch Blood Bank Comment Bld Prod Order Comment 06/22/18 06/22/18 08:22 09:21 WBC RBC Hgb Hct MCV MCH MCHC RDW Plt Count MPV PT INR Sodium Potassium Chloride Carbon Dioxide Anion Gap BUN Creatinine Estimated GFR Random Glucose Calcium Ammonia MTS Gel Crossmatch See Detail Blood Bank Comment Bld Prod Order Comment Microbiology 06/19/18 23:50 Clean Catch Urine Urine Culture - Final No growth in 48 hours Assessment and Plan - Assessment (1) Hepatorenal syndrome Code(s): K76.7 - Hepatorenal syndrome Status: Acute (2) Hyperammonemia Code(s): E72.20 - Disorder of urea cycle metabolism, unspecified Status: Acute (3) Hepatic encephalopathy Code(s): K72.90 - Hepatic failure, unspecified without coma Status: Acute (4) Liver disease, chronic, with cirrhosis Code(s): K74.60 - Unspecified cirrhosis of liver; K76.9 - Liver disease, unspecified Status: Chronic (5) Altered mental status Code(s): R41.82 - Altered mental status, unspecified Status: Acute (6) Atrial fibrillation Code(s): I48.91 - Unspecified atrial fibrillation Status: Chronic (7) Acute kidney injury Code(s): N17.9 - Acute kidney failure, unspecified Status: Acute (8) Anemia Code(s): D64.9 - Anemia, unspecified Status: Acute - Plan 63-year-old black male admitted for acute renal failure, metabolic encephalopathy. Hx of Cirrhosis. Other metabolic causes have been ruled out for his encephalopathy. CT head is negative, B12 was unremarkable, electrolytes otherwise unremarkable. Overall meld score is 33 giving about a 50 % mortality in about 3 months. Patient and are aware of this prognosis. Chronic hepatic encephalopathy-Slowed mentation is evident, likely secondary to hepatic failure and azotemia Continue treating underlying problems of hepatic failure and acute renal failure -zinc, continue lactulose and rifaximin Hepatitis C/cirrhosis/ascites/hyperbilirubinemia -Status post paracentesis with 8.4 L removed on 06/16 - Questran, Benadryl -Propanolol, spironolactone -Meld scores greater than 30, poor prognosis Hepatorenal syndrome -Likely secondary to dehydration 2/2 lactulose and/or third spacing with cirrhosis -Do not anticipate further significant improvement secondary to liver disease -Albumin 25 gm IV BID -Appreciate nephrology input Klebsiella UTI On Rocephin, discontinued and started on Ceftin 250 mg po bid x 3 days. generalized weakness -Likely multifactorial including metabolic encephalopathy element PT/OT/ST Symptomatic anemia, poss combination of chronic disease, poss slow variceal bleed. Hx of varices, had EGD in March 2018, had banding. -S/P 1 units PRBC 06/20, Hgb 6.3, went up to 7.3 after. -HH again dropped today, 6.7/19.5, 2 units PRBC given -HH dropped again, 6.2/17.8, 2 units PRBC to be given -went for EGD Portal gastrpathy/esophageal varices grade 2-s/p banding/hiatal hernia GI recommends non selective BB and PRBC, if still anemic poss colonoscopy and hematology consult -Add propanolol 10 mg p.o. twice daily -on Octreotide gtt now Atrial fibrillation Was having occasional episodes of tachycardia, heart rate up to 140s. HR improved, remains 60-70s, -Discontinued Coreg, added propanolol. -Continue Cardizem 30 mg p.o. 4 times daily. -Patient not on systemic anticoagulation due to bleeding risk Coagulopathy, INR 2.0 -s/p vitamin K 2.5 mg p.o. x1 06/20 -INR 1.9 today, was given 2 units of FFP Palliative care input appreciated-at this time goals remain aggressive however, both realistic of poor outcome if he goes into cardiac arrest. They will revisit code status if he continues to decline. Labs in am Code Status: Full code Discussed Condition With: RN, pt, CM Discharge Planning: Home with [facility], CM working on securing a few visits. Pt. is a self pay. Not safe for dc yet. (5) Altered mental status Qualifiers: Qualified Code(s): R40.4 - Transient alteration of awareness (6) Atrial fibrillation Qualifiers: Qualified Code(s): I48.0 - Paroxysmal atrial fibrillation (8) Anemia Qualifiers: Qualified Code(s): D64.9 - Anemia, unspecified
[2018-06-22] MEDS: Spironolactone 50 MG Tablet PO SCH (13:50)
[2018-06-22] MEDS: dilTIAZem 30 MG Tablet PO SCH ×4 (13:51→21:39)
[2018-06-22] MEDS: Cholestyramine Light 4 GM Packet PO SCH ×5 (13:54→21:39)
--- NOTE | 2018-06-22 14:26 | P.PNPAL ---
Reason for Visit Reason for visit: a. To assist with evaluation and management of symptoms including: Encephalopathy, physical deconditioning b. To assist medical decision maker(s) with: better understanding of current medical conditions; weighing benefits/burdens of medical treatment options; making medical treatment decisions. Subjective Subjective/Interval History: Follow-up medically necessary for symptom management. Patient seen and examined in the presence of his spouse. Patient has just arrived from undergoing EGD with band ligation of varices. Patient denies pain, abdominal discomfort. Patient requesting food. Laboratory workup today revealing WBC 3.1, hemoglobin excuse me 6.2, hematocrit 17.8, platelet count 45 L. 2 units PRBC transfused during procedure. No complications during procedure per GI notes. Provided patient and his spouse a copy of 5 Wishes. Family/Friend Interactions: See interval note. . Advance Directives Living Will: Completed, but not made available Health Care Surrogate: Copy in medical record Durable Power of [place] [employer]: Completed, but not made available Advance Directives Date on File: 06/21/18 Health Care Surrogate Name and Number: HCS: Etelvina Kaba [phone] Alt: Homa Kaba [phone] Objective Vital Signs: Vital Signs 06/21/18 16:00 06/21/18 20:00 06/22/18 00:00 Temperature 98.4 F 98.6 F 98.6 F Pulse Rate 69 72 65 Respiratory Rate 16 18 18 Blood Pressure 116/58 L 138/62 128/58 L Pulse Oximetry 100 100 98 06/22/18 02:54 06/22/18 03:13 06/22/18 04:10 Temperature 98.1 F 99.3 F Pulse Rate 71 70 Respiratory Rate 18 18 Blood Pressure 140/62 132/60 Pulse Oximetry 100 100 98 06/22/18 04:17 06/22/18 05:16 06/22/18 06:26 Temperature 99.3 F 97.3 F L 98.2 F Pulse Rate 73 70 73 Respiratory Rate 18 20 20 Blood Pressure 132/60 132/63 131/60 Pulse Oximetry 100 98 99 06/22/18 09:29 06/22/18 09:53 06/22/18 10:09 Temperature 98.7 F 98 F Pulse Rate 70 71 70 Respiratory Rate 18 18 18 Blood Pressure 130/58 L 130/58 L 119/63 Pulse Oximetry 100 100 100 10/18/18 10:22 06/22/18 10:25 06/22/18 10:39 Temperature 98.7 F 98.5 F Pulse Rate 70 71 71 Respiratory Rate 18 17 18 Blood Pressure 117/58 L 121/57 L Pulse Oximetry 100 100 100 06/22/18 10:44 06/22/18 12:05 06/22/18 12:10 Temperature 98.2 F Pulse Rate 70 71 68 Respiratory Rate 19 16 Blood Pressure 126/58 L 120/60 Pulse Oximetry 100 98 06/22/18 12:15 06/22/18 12:20 06/22/18 12:30 Temperature 98 F Pulse Rate 69 67 68 Respiratory Rate 17 16 17 Blood Pressure 117/62 116/65 118/63 Pulse Oximetry 97 100 100 Intake & Output 06/21/18 06/22/18 06/22/18 18:59 06:59 18:59 Intake Total 200 / 200 806 / 806 0 / 0 Output Total 150 / 150 Balance 200 / 200 806 / 806 -150 / -150 Weight 116.6 kg Intake: IV 200 / 200 100 / 100 Flexbumin 25% Inj 100 ML @ 60 100 / 100 100 / 100 mls/hr IV.SIG Q12H SHOSHANA Rx#: [id number] Rocephin Inj 1,000 MG In NS Inj 100 / 100 100 ML @ 200 mls/hr IV.SIG Q24H SHOSHANA Rx#:[id number] Intake (Blood Product) Amt 706 / 706 0 / 0 Plasma Thawed 5 Day Cp2d Unit 329 / 329 [id number] Plasma Thawed 5 Day Cp2d Unit 0 / 0 [id number] Plasma Thawed 5 Day Cp2d Unit 192 / 192 [id number] Plasma Thawed 5 Day Cp2d Unit 185 / 185 [id number] Plt Pheresis A Leukored Pas 0 / 0 Unit [id number] Output: Urine 150 / 150 Other: # Voids 2 Physical Exam: CONSTITUTIONAL/GENERAL: This is an chronically ill patient who appears older than stated age, in no acute distress. TUBES/LINES/DRAINS: PIV, condom catheter SKIN: Dry skin. no rashes, or lesions. Ecchymoses on upper extremities. No wounds seen anteriorly. Skin temperature appropriate. Not diaphoretic. EYES: Pupils equal and round and reactive. Extraocular motions intact. Slight scleral icterus. No injection or drainage. Fundi not examined. ENT: Hearing grossly normal. Nose without bleeding or purulent drainage. Missing teeth. Moist oral mucosa NECK: Trachea midline. Supple, nontender. CARDIOVASCULAR: Irregular rate and rhythm without murmurs, gallops, or rubs. No JVD. Peripheral pulses symmetric. RESPIRATORY/CHEST: Symmetric, unlabored respirations. CTA. No wheezes, rales, or rhonchi. GASTROINTESTINAL: Abdomen soft, non-tender, distended. No guarding. Active bowel sounds GENITOURINARY: Without palpable bladder distension. MUSCULOSKELETAL: Extremities without clubbing, cyanosis, or edema. No joint tenderness or effusion noted. No calf tenderness. No mottling or clubbing. NEUROLOGICAL: Awake and alert, oriented to self, place and situation. Moves all extremities to command. PSYCHIATRIC: No obvious anxiety/depression. no apparent hallucinations or other psychotic thought process. Diagnostic Tests Laboratory: Laboratory Results - last 72 hr 06/19/18 06/19/18 06/19/18 15:40 23:50 23:50 WBC RBC Hgb Hct MCV MCH MCHC RDW Plt Count MPV Prelim Diff (Auto) Neut % (Auto) Lymph % (Auto) [place] % (Auto) Eos % (Auto) Baso % (Auto) Neut # (Auto) Lymph # (Auto) [place] # (Auto) Eos # (Auto) Baso # (Auto) WBC Differential Diff Scan Differential Comment Platelet Estimate Platelet Morphology Ovalocytes PT INR Sodium 138 Potassium 4.4 Chloride 109 H Carbon Dioxide 27.1 Anion Gap 2 L BUN 19 H Creatinine 1.74 H Estimated GFR 48 L Random Glucose 129 H Calcium 8.8 Magnesium 2.0 Total Bilirubin AST ALT Alkaline Phosphatase Ammonia Total Protein Albumin Urine Color [place] Urine Clarity Cloudy H Urine pH 5.0 Ur Specific [place] 1.019 Urine Protein Negative Urine Glucose (UA) Negative Urine Ketones Trace H Urine Occult Blood Moderate H Urine Nitrate Negative Urine Bilirubin Negative Urine Urobilinogen Less than 2 Ur Leukocyte Esterase Trace H Urine RBC 22 H Urine WBC 35 H Ur Squamous Epith Cells 1 Hyaline Casts 64 Urine Mucus Few H Micro UA Comment Culture indicated Ur Microscopic Review Not Reportable Urine Culture Comments Culture indicated Ur Random Creatinine 198 Ur Random Sodium 37 Blood Type Blood Type Recheck Antibody Screen MTS Gel Crossmatch Blood Bank Comment Bld Prod Order Comment 06/20/18 06/20/18 06/20/18 05:00 05:00 05:00 WBC 3.5 L RBC 1.72 L Hgb 6.3 L* Hct 18.7 L* MCV 108.8 H MCH 36.4 H MCHC 33.5 RDW 16.6 Plt Count 61 L MPV 8.9 Prelim Diff (Auto) Slide review pending Neut % (Auto) 64.5 Lymph % (Auto) 18.6 [place] % (Auto) 12.1 H Eos % (Auto) 4.0 Baso % (Auto) 0.8 Neut # (Auto) 2.3 Lymph # (Auto) 0.7 L [place] # (Auto) 0.4 Eos # (Auto) 0.1 Baso # (Auto) 0.0 WBC Differential . Diff Scan Auto diff confirmed Differential Comment . Platelet Estimate Low L Platelet Morphology Normal Ovalocytes 1+ H PT INR Sodium 139 Potassium 4.5 Chloride 107 Carbon Dioxide 24.0 Anion Gap 8 BUN 19 H Creatinine 1.78 H Estimated GFR 47 L Random Glucose 110 H Calcium 9.1 Magnesium Total Bilirubin 6.7 H AST 55 H ALT 37 Alkaline Phosphatase 72 Ammonia 55 H Total Protein 7.2 Albumin 2.9 L Urine Color Urine Clarity Urine pH Ur Specific [place] Urine Protein Urine Glucose (UA) Urine Ketones Urine Occult Blood Urine Nitrate Urine Bilirubin Urine Urobilinogen Ur Leukocyte Esterase Urine RBC Urine WBC Ur Squamous Epith Cells Hyaline Casts Urine Mucus Micro UA Comment Ur Microscopic Review Urine Culture Comments Ur Random Creatinine Ur Random Sodium Blood Type Blood Type Recheck Antibody Screen MTS Gel Crossmatch Blood Bank Comment Bld Prod Order Comment 06/20/18 06/20/18 06/20/18 07:59 07:59 15:23 WBC RBC Hgb 7.3 L Hct 21.4 L MCV MCH MCHC RDW Plt Count MPV Prelim Diff (Auto) Neut % (Auto) Lymph % (Auto) [place] % (Auto) Eos % (Auto) Baso % (Auto) Neut # (Auto) Lymph # (Auto) [place] # (Auto) Eos # (Auto) Baso # (Auto) WBC Differential Diff Scan Differential Comment Platelet Estimate Platelet Morphology Ovalocytes PT INR Sodium Potassium Chloride Carbon Dioxide Anion Gap BUN Creatinine Estimated GFR Random Glucose Calcium Magnesium Total Bilirubin AST ALT Alkaline Phosphatase Ammonia Total Protein Albumin Urine Color Urine Clarity Urine pH Ur Specific [place] Urine Protein Urine Glucose (UA) Urine Ketones Urine Occult Blood Urine Nitrate Urine Bilirubin Urine Urobilinogen Ur Leukocyte Esterase Urine RBC Urine WBC Ur Squamous Epith Cells Hyaline Casts Urine Mucus Micro UA Comment Ur Microscopic Review Urine Culture Comments Ur Random Creatinine Ur Random Sodium Blood Type O Positive Cancelled Blood Type Recheck Cancelled Antibody Screen Negative Cancelled MTS Gel Crossmatch See Detail Blood Bank Comment Bld Prod Order Comment 06/21/18 06/21/18 06/21/18 07:50 07:50 07:55 WBC 3.3 L RBC 1.90 L Hgb 6.7 L* Hct 19.5 L* MCV 102.9 H D MCH 35.3 H MCHC 34.3 RDW 19.7 H D Plt Count 54 L MPV 9.0 Prelim Diff (Auto) Neut % (Auto) Lymph % (Auto) [place] % (Auto) Eos % (Auto) Baso % (Auto) Neut # (Auto) Lymph # (Auto) [place] # (Auto) Eos # (Auto) Baso # (Auto) WBC Differential Diff Scan Differential Comment Platelet Estimate Platelet Morphology Ovalocytes PT 23.9 H INR 2.4 Sodium 139 Potassium 4.4 Chloride 107 Carbon Dioxide 23.1 Anion Gap 9 BUN 21 H Creatinine 1.80 H Estimated GFR 46 L Random Glucose 93 Calcium 9.1 Magnesium Total Bilirubin AST ALT Alkaline Phosphatase Ammonia Total Protein Albumin Urine Color Urine Clarity Urine pH Ur Specific [place] Urine Protein Urine Glucose (UA) Urine Ketones Urine Occult Blood Urine Nitrate Urine Bilirubin Urine Urobilinogen Ur Leukocyte Esterase Urine RBC Urine WBC Ur Squamous Epith Cells Hyaline Casts Urine Mucus Micro UA Comment Ur Microscopic Review Urine Culture Comments Ur Random Creatinine Ur Random Sodium Blood Type Blood Type Recheck Antibody Screen MTS Gel Crossmatch Blood Bank Comment Bld Prod Order Comment 06/21/18 06/21/18 06/22/18 19:28 22:17 06:40 WBC 3.1 L RBC 1.73 L Hgb 6.2 L* Hct 17.8 L* MCV 102.9 H MCH 35.7 H MCHC 34.7 RDW 19.4 H Plt Count 45 L MPV 8.4 Prelim Diff (Auto) Neut % (Auto) Lymph % (Auto) [place] % (Auto) Eos % (Auto) Baso % (Auto) Neut # (Auto) Lymph # (Auto) [place] # (Auto) Eos # (Auto) Baso # (Auto) WBC Differential Diff Scan Differential Comment Platelet Estimate Platelet Morphology Ovalocytes PT INR Sodium Potassium Chloride Carbon Dioxide Anion Gap BUN Creatinine Estimated GFR Random Glucose Calcium Magnesium Total Bilirubin AST ALT Alkaline Phosphatase Ammonia 79 H Total Protein Albumin Urine Color Urine Clarity Urine pH Ur Specific [place] Urine Protein Urine Glucose (UA) Urine Ketones Urine Occult Blood Urine Nitrate Urine Bilirubin Urine Urobilinogen Ur Leukocyte Esterase Urine RBC Urine WBC Ur Squamous Epith Cells Hyaline Casts Urine Mucus Micro UA Comment Ur Microscopic Review Urine Culture Comments Ur Random Creatinine Ur Random Sodium Blood Type Blood Type Recheck Antibody Screen MTS Gel Crossmatch Blood Bank Comment Bld Prod Order Comment 06/22/18 06/22/18 06/22/18 06:40 07:17 08:22 WBC RBC Hgb Hct MCV MCH MCHC RDW Plt Count MPV Prelim Diff (Auto) Neut % (Auto) Lymph % (Auto) [place] % (Auto) Eos % (Auto) Baso % (Auto) Neut # (Auto) Lymph # (Auto) [place] # (Auto) Eos # (Auto) Baso # (Auto) WBC Differential Diff Scan Differential Comment Platelet Estimate Platelet Morphology Ovalocytes PT 19.0 H INR 1.9 Sodium 138 Potassium 4.2 Chloride 106 Carbon Dioxide 22.5 Anion Gap 10 BUN 21 H Creatinine 1.85 H Estimated GFR 45 L Random Glucose 104 Calcium 9.5 Magnesium Total Bilirubin AST ALT Alkaline Phosphatase Ammonia Total Protein Albumin Urine Color Urine Clarity Urine pH Ur Specific [place] Urine Protein Urine Glucose (UA) Urine Ketones Urine Occult Blood Urine Nitrate Urine Bilirubin Urine Urobilinogen Ur Leukocyte Esterase Urine RBC Urine WBC Ur Squamous Epith Cells Hyaline Casts Urine Mucus Micro UA Comment Ur Microscopic Review Urine Culture Comments Ur Random Creatinine Ur Random Sodium Blood Type Blood Type Recheck Antibody Screen MTS Gel Crossmatch See Detail Blood Bank Comment Bld Prod Order Comment 06/22/18 09:21 WBC RBC Hgb Hct MCV MCH MCHC RDW Plt Count MPV Prelim Diff (Auto) Neut % (Auto) Lymph % (Auto) [place] % (Auto) Eos % (Auto) Baso % (Auto) Neut # (Auto) Lymph # (Auto) [place] # (Auto) Eos # (Auto) Baso # (Auto) WBC Differential Diff Scan Differential Comment Platelet Estimate Platelet Morphology Ovalocytes PT INR Sodium Potassium Chloride Carbon Dioxide Anion Gap BUN Creatinine Estimated GFR Random Glucose Calcium Magnesium Total Bilirubin AST ALT Alkaline Phosphatase Ammonia Total Protein Albumin Urine Color Urine Clarity Urine pH Ur Specific [place] Urine Protein Urine Glucose (UA) Urine Ketones Urine Occult Blood Urine Nitrate Urine Bilirubin Urine Urobilinogen Ur Leukocyte Esterase Urine RBC Urine WBC Ur Squamous Epith Cells Hyaline Casts Urine Mucus Micro UA Comment Ur Microscopic Review Urine Culture Comments Ur Random Creatinine Ur Random Sodium Blood Type Blood Type Recheck Antibody Screen MTS Gel Crossmatch Blood Bank Comment Bld Prod Order Comment Result Diagrams: 06/22/18 06:40 06/22/18 06:40 Microbiology: Microbiology 06/19/18 23:50 Urine Culture - Final Clean Catch Urine No growth in 48 hours Imaging: Chest X-Ray 06/12/18 16:57 CONCLUSION: No infiltrates seen. Abdomen Ultrasound 06/13/18 00:00 CONCLUSION: 1. Moderate amount of ascitic fluid. Abdomen/Bladder Ultrasound 06/13/18 00:00 CONCLUSION: 1. No evidence of hydronephrosis. 2. There is some increased echogenicity of the renal parenchyma of the right kidney suggestive of chronic medical renal disease. 3. There is evidence of ascites. Head CT 06/14/18 00:00 CONCLUSION: 1. No acute intracranial abnormality. . Paracentesis Ultrasound 06/16/18 00:00 CONCLUSION: 1. Uncomplicated paracentesis. Abdomen/Pelvis CT 06/17/18 17:58 CONCLUSION: 1. Cirrhosis. 2. Moderate amount ascites. 3. Small gallstone in the gallbladder. Gallbladder collapsed. Procedures: 06/16/18-paracentesis with removal of 8400 mL's of peritoneal fluid 06/22/18 -EGD with band ligation of varices Assessment and Plan - Disease Oriented Problem List (1) Hyperammonemia (2) Liver cirrhosis (3) Hepatitis C (4) Anemia (5) Hepatorenal syndrome (6) Acute kidney injury (7) Urinary tract infection due to Klebsiella species (8) Atrial fibrillation - Symptom Scale (1) Encephalopathy Comment: Patient has history of liver cirrhosis with recurrent ascites. Came in with c/o altered mentation and has hyperammonemia. (2) Physical deconditioning Comment: Progressive. Multiple hospitalizations in a short period of time. Pertinent Non-Medical Issues: Psychosocial: Patient is originally from [place]. He relocated to [facility] March 2018 after an opening for Elderly Housing became available. Patient is to his current Etelvina Kaba for 35 years and they have known each other for 45 years. 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 Patient has 1 biological daughter and one stepdaughter. Spiritual: Patient is Christianity-requesting career advisor services. Legal: Completed and signed healthcare surrogate form today. Patient will be provided with a copy of 5 wishes to complete at his own time. Ethical issues impacting care: None identified at this time. Important Contacts: Healthcare surrogate -spouse-Etelvina Kaba [phone] Alternate healthcare surrogate-daughter- Homa Kaba [phone] . Prognosis: Mr. Kaba is a 63-year-old patient with a medical history significant for hepatitis C, liver cirrhosis, atrial fibrillation, prostate cancer and psoriasis. Patient presented to the emergency room on 06/12/18 for evaluation of altered mental status. In the emergency room patient`s spouse reported that patient had been fatigued, weak, had decreased oral intake and distended abdomen. Clinical course complicated with persistent altered mental status, and anemia requiring blood transfusion. Given multiple ongoing comorbidities, patient remains at high risk for further complications, deterioration and decline. Code Status: Full Code Plan: PLAN: Legal decision maker: Patient appears to have insight regarding his medical condition and appears to be able to participate in medical decision making. Due to intermittent confusion, recommending shared decision-making with his spouse Etelvina Kaba whom he has designated as his healthcare surrogate. He also designated his daughter Homa Kaba is his alternate healthcare surrogate. Goals: Goals remain aggressive. Patient underwent EGD with banding . Provided patient and his spouse a copy of 5 Wishes. CODE STATUS: Full code SYMPTOMS: * Encephalopathy: Patient has history of liver cirrhosis with recurrent ascites. Came in with c/o altered mentation and has hyperammonemia. Last ammonia level on 06/20/18 was 55. Encephalopathy most likely due to hyperammonemia and urinary tract infection. Today patient is alert and oriented x3, with some forgetfulness. Patient seems to be improving, currently on lactulose and treatment for UTI with ceftriaxone. Continue to monitor. * Physical deconditioning: Progressive. Multiple hospitalizations in a short period of time. History of hepatitis C, cirrhosis, recurrent ascites. Patient` s health he has been progressively declining in the past few months. Patient is unable to participate in activities he usually was able to due to fatigue, weakness. Physical therapy consulted. With multiple comorbidities, patient will most likely continue to deteriorate and decline. Palliative care will continue to follow the patient during hospital course as condition evolves, to assist patient/decision-maker with understanding of their medical conditions, weighing benefits/burdens of treatment options, for clarification of goals of treatment. Additionally will assist with any symptoms of palliative concern Attestation Attestation: To help prompt me to consider important information that might be impacting today's encounter and assessment, information from prior notes written by myself or my colleagues may have been "brought forward" into today's note. My signature on this note, however, is an attestation that I personally performed the exam, history, and/or decision-making noted today, and, unless otherwise indicated, the interactions with patient, family, and staff as well as the review of records all occurred today. I also attest that the listed assessment and stated plan reflect my best clinical judgment today based on the combination of historical information, prior notes, and today's exam/ interactions. When time spent is documented, it refers only to time spent today by the signer, or if indicated, combined time spent today by collaborating physician/nurse practitioner.
--- NOTE | 2018-06-22 14:44 | P.PNNP ---
Subjective Interval history: Patient had EGD Physical Exam Vital signs: Vital Signs 06/21/18 16:00 06/21/18 20:00 06/22/18 00:00 Temperature 98.4 F 98.6 F 98.6 F Pulse Rate 69 72 65 Respiratory Rate 16 18 18 Blood Pressure 116/58 L 138/62 128/58 L Pulse Oximetry 100 100 98 06/22/18 02:54 06/22/18 03:13 06/22/18 04:10 Temperature 98.1 F 99.3 F Pulse Rate 71 70 Respiratory Rate 18 18 Blood Pressure 140/62 132/60 Pulse Oximetry 100 100 98 06/22/18 04:17 06/22/18 05:16 06/22/18 06:26 Temperature 99.3 F 97.3 F L 98.2 F Pulse Rate 73 70 73 Respiratory Rate 18 20 20 Blood Pressure 132/60 132/63 131/60 Pulse Oximetry 100 98 99 06/22/18 09:29 06/22/18 09:53 06/22/18 10:09 Temperature 98.7 F 98 F Pulse Rate 70 71 70 Respiratory Rate 18 18 18 Blood Pressure 130/58 L 130/58 L 119/63 Pulse Oximetry 100 100 100 06/22/18 10:22 06/22/18 10:25 06/22/18 10:39 Temperature 98.7 F 98.5 F Pulse Rate 70 71 71 Respiratory Rate 18 17 18 Blood Pressure 117/58 L 121/57 L Pulse Oximetry 100 100 100 06/22/18 10:44 06/22/18 12:05 06/22/18 12:10 Temperature 98.2 F Pulse Rate 70 71 68 Respiratory Rate 19 16 Blood Pressure 126/58 L 120/60 Pulse Oximetry 100 98 06/22/18 12:15 06/22/18 12:20 06/22/18 12:30 Temperature 98 F Pulse Rate 69 67 68 Respiratory Rate 17 16 17 Blood Pressure 117/62 116/65 118/63 Pulse Oximetry 97 100 100 Intake & Output 06/21/18 06/22/18 06/22/18 18:59 06:59 18:59 Intake Total 200 / 200 806 / 806 400 / 400 Output Total 150 / 150 Balance 200 / 200 806 / 806 250 / 250 Weight 116.6 kg Intake: IV 200 / 200 100 / 100 Flexbumin 25% Inj 100 ML @ 60 100 / 100 100 / 100 mls/hr IV.SIG Q12H SHOSHANA Rx#: [id number] Rocephin Inj 1,000 MG In NS Inj 100 / 100 100 ML @ 200 mls/hr IV.SIG Q24H SHOSHANA Rx#:[id number] Anesthesia Amount 400 / 400 Intake (Blood Product) Amt 706 / 706 0 / 0 Plasma Thawed 5 Day Cp2d Unit 329 / 329 [id number] Plasma Thawed 5 Day Cp2d Unit 0 / 0 [id number] Plasma Thawed 5 Day Cp2d Unit 192 / 192 [id number] Plasma Thawed 5 Day Cp2d Unit 185 / 185 [id number] Plt Pheresis A Leukored Pas 0 / 0 Unit [id number] Output: Urine 150 / 150 Other: # Voids 2 Narrative: GENERAL: Well-nourished 63-year-old black male, chronically ill-appearing. SKIN: Warm and dry. HEAD: Atraumatic. Normocephalic. EYES: Pupils equal and round. Positive scleral icterus. No injection or drainage. ENT: No nasal bleeding or discharge. Mucous membranes pink and moist. NECK: Trachea midline. No JVD. CARDIOVASCULAR: S1-S2, irregularly irregular. Unable to detect any murmurs, no rubs, no gallops. RESPIRATORY: No accessory muscle use. Clear to auscultation. Breath sounds equal bilaterally. GASTROINTESTINAL: Abdomen soft, non-tender, nondistended. Hepatic and splenic margins not palpable. MUSCULOSKELETAL: Extremities without clubbing, cyanosis, or edema. No obvious deformities. NEUROLOGICAL: Awake, oriented x3. No focal deficits. Speech is clear. Mild tremors. PSYCHIATRIC: Appropriate mood and affect; insight and judgment normal. - Urinary Catheter Management Straight Cath placed during this visit: yes Reason for continuing: Not indwelling catheter Insertion date: 06/12/18 Insertion time: 19:10 Assessment and Plan - Assessment (1) Acute kidney injury Code(s): N17.9 - Acute kidney failure, unspecified Status: Acute (2) Hyperammonemia Code(s): E72.20 - Disorder of urea cycle metabolism, unspecified Status: Acute (3) Hepatic encephalopathy Code(s): K72.90 - Hepatic failure, unspecified without coma Status: Acute (4) Coagulopathy Code(s): D68.9 - Coagulation defect, unspecified Status: Acute - Plan Patient with hepatorenal syndrome we will check your urine sodium and creatinine , on albumin 25 g IV every 12 hourly On treatment for hepatic encephalopathy total bilirubin still high creatinine 1.85 hemoglobin dropped to 6.2 had paracentesis 06/16 fluid removed Patient creatinine 1.85, received blood transfusion Poor prognosis
[2018-06-22] MEDS: Furosemide 20 MG Tablet PO SCH ×2 (15:24→18:04)
[2018-06-22] MEDS: rifAXIMin 550 MG Tablet PO SCH ×2 (15:24→21:38)
[2018-06-22] MEDS: Octreotide Inj 500 MCG in Sodium Chlor 0.9% Inj 500 ML IV.CONT SCH ×2 (18:22→23:33)
[2018-06-22] MEDS: Propranolol 10 MG Tablet PO SCH (21:39)
[2018-06-23] MEDS: Albumin Human 25% Inj 100 ML IV.SIG SCH ×2 (03:52→15:19)
[2018-06-23 07:28] LABS: INR 1.9 Ratio; Prothrombin Time 19.7 sec (9.8-11.6)
[2018-06-23 07:30] LABS: Hemoglobin 8.7 gm/dL (13.0-17.0); Mean Corpuscular HGB Conc 34.9 % (32.0-36.0); Mean Corpuscular Hemoglobin 35.1 pg (27.0-34.0); Mean Corpuscular Volume 100.5 fL (80.0-100.0); Mean Platelet Volume 8.6 fL (7.0-11.0); Platelet Count 60 th/mm3 (150-450); Red Blood Count 2.49 mil/mm3 (4.50-5.90); Red Cell Distribution Width 20.8 % (11.6-17.2); White Blood Count 3.2 th/mm3 (4.0-11.0)
[2018-06-23 08:04] LABS: Calcium 9.1 mg/dL (8.5-10.1); Potassium 4.8 meq/L (3.5-5.1)
[2018-06-23] MEDS: Octreotide Inj 500 MCG in Sodium Chlor 0.9% Inj 500 ML IV.CONT SCH ×2 (08:43→18:09)
[2018-06-23] MEDS: Propranolol 10 MG Tablet PO SCH ×2 (08:43→20:22)
[2018-06-23] MEDS: dilTIAZem 30 MG Tablet PO SCH ×4 (08:43→20:22)
[2018-06-23] MEDS: Furosemide 20 MG Tablet PO SCH ×2 (08:43→17:10)
[2018-06-23] MEDS: Spironolactone 50 MG Tablet PO SCH (08:43)
[2018-06-23] MEDS: Cholestyramine Light 4 GM Packet PO SCH ×4 (08:43→20:21)
[2018-06-23] MEDS: rifAXIMin 550 MG Tablet PO SCH ×2 (09:30→20:22)
--- NOTE | 2018-06-23 10:01 | P.PNGI ---
Subjective Interval history: Patient laying in bed, awake alert oriented. Denies any abdominal pain or discomfort, tolerating clear liquid diet well. Patient post EGD on octreotide drip. Physical Exam Vital signs: Vital Signs 06/22/18 09:53 06/22/18 10:09 06/22/18 10:22 Temperature 98.7 F 98 F Pulse Rate 71 70 70 Respiratory Rate 18 18 18 Blood Pressure 130/58 L 119/63 Pulse Oximetry 100 100 100 06/22/18 10:25 06/22/18 10:39 06/22/18 10:44 Temperature 98.7 F 98.5 F Pulse Rate 71 71 70 Respiratory Rate 17 18 Blood Pressure 117/58 L 121/57 L Pulse Oximetry 100 100 06/22/18 12:05 06/22/18 12:10 06/22/18 12:15 Temperature 98.2 F Pulse Rate 71 68 69 Respiratory Rate 19 16 17 Blood Pressure 126/58 L 120/60 117/62 Pulse Oximetry 100 98 97 06/22/18 12:20 06/22/18 12:30 06/22/18 15:02 Temperature 98 F 98.1 F Pulse Rate 67 68 77 Respiratory Rate 16 17 19 Blood Pressure 116/65 118/63 127/59 L Pulse Oximetry 100 100 100 06/22/18 15:05 06/22/18 19:46 06/22/18 22:36 Temperature 98.1 F 97.8 F 98.1 F Pulse Rate 72 113 H 81 Respiratory Rate 17 18 18 Blood Pressure 124/64 117/58 L 130/72 Pulse Oximetry 100 06/23/18 00:38 06/23/18 04:48 06/23/18 08:00 Temperature 98.4 F 97.8 F 98.1 F Pulse Rate 78 89 81 Respiratory Rate 20 18 18 Blood Pressure 130/56 L 119/63 116/61 Pulse Oximetry 97 96 98 Intake & Output 06/22/18 06/23/18 06/23/18 18:59 06:59 18:59 Intake Total 400 / 400 1380.5 / 1380.5 300 / 300 Output Total 150 / 150 1000 / 1000 Balance 250 / 250 380.5 / 380.5 300 / 300 Weight 117 kg Intake: IV 400.5 / 400.5 300 / 300 SandoSTATIN Inj 500 MCG In NS 400.5 / 400.5 200 / 200 Inj 500 ML @ 50 MCG/HR 50.05 mls/hr IV.CONT .Q10H [facility] Rx#: [id number] Flexbumin 25% Inj 100 ML @ 60 100 / 100 mls/hr IV.SIG Q12H [facility] Rx#: [id number] Oral 180 / 180 Anesthesia Amount 400 / 400 Intake (Blood Product) Amt 0 / 0 800 / 800 Plasma Thawed 5 Day Cp2d Unit 0 / 0 [id number] Plt Pheresis A Leukored Pas 0 / 0 Unit [id number] Rbc As-3 Leukoreduced Unit 400 / 400 [id number] Rbc As-3 Leukoreduced Unit 0 / 0 400 / 400 [id number] Output: Urine 150 / 150 1000 / 1000 Other: Date of Last Bowel Movement 06/23/18 - Constitutional no acute distress - Routine HEENT Exam Head: Present: normocephalic Eye: Present: conjunctival icterus - Routine Respiratory Exam Present: CTA bilaterally. Absent: accessory muscle use - Routine Abdominal Exam Present: soft, normoactive bowel sounds. Absent: tenderness - Routine Extremities Exam Present: full ROM, pulses intact. Absent: edema - Routine Skin Exam Present: dry, warm - Routine Neurological Exam Present: alert - Routine Psychiatric Exam Present: normal affect, cooperative - Urinary Catheter Management Straight Cath placed during this visit: yes Reason for continuing: Not indwelling catheter Insertion date: 06/12/18 Insertion time: 19:10 Results - Labs CBC & Chem 7: 06/23/18 06:47 06/23/18 06:47 Laboratory Results - last 24 hr 06/22/18 06/22/18 06/23/18 08:22 09:21 06:47 WBC 3.2 L RBC 2.49 L Hgb 8.7 L D Hct 25.0 L MCV 100.5 H MCH 35.1 H MCHC 34.9 RDW 20.8 H Plt Count 60 L D MPV 8.6 PT INR Sodium Potassium Chloride Carbon Dioxide Anion Gap BUN Creatinine Estimated GFR Random Glucose Calcium MTS Gel Crossmatch See Detail Blood Bank Comment Bld Prod Order Comment 06/23/18 06/23/18 06:47 06:47 WBC RBC Hgb Hct MCV MCH MCHC RDW Plt Count MPV PT 19.7 H INR 1.9 Sodium 140 Potassium 4.8 Chloride 107 Carbon Dioxide 24.0 Anion Gap 9 BUN 20 H Creatinine 1.74 H Estimated GFR 48 L Random Glucose 137 H Calcium 9.1 MTS Gel Crossmatch Blood Bank Comment Bld Prod Order Comment Microbiology 06/19/18 23:50 Clean Catch Urine Urine Culture - Final No growth in 48 hours Assessment and Plan (1) Ascites of liver Status: Chronic Code(s): R18.8 - Other ascites (2) Encephalopathy Status: Acute Code(s): G93.40 - Encephalopathy, unspecified - Plan Ascites Paracentesis done 06/16/2018, 8400 cc peritoneal fluid removed. Less distention noted. Patient denies any abdominal discomfort's of breath. Patient currently on Lasix 20 mg twice daily and Aldactone 100 mg daily. Encephalopathy Patient awake, alert and oriented and appropriate. Patient currently on zinc 220 mg daily , rifaximin 550 mg twice daily and lactulose 30 mL's 4 times daily. 06/14/2018 ammonia level 46. Hepatitis C Plan for outpatient treatment Anemia 06/17/2018 hemoglobin 7.2 hematocrit 21.1 platelet count 56. Patient and spouse deny any noted active bleeding. 06/20/2018 Ascites Post paracentesis on 06/16/2018. Patient denies any abdominal pain or shortness of breath. Currently on Lasix 20 mg twice daily and Aldactone 100 mg daily. Encephalopathy Patient awake alert and oriented. Ammonia level this a.m. 55. Zinc, Xifaxan, and lactulose Hepatitis C Treatment as outpatient planned Anemia Hemoglobin 6.3 hematocrit 18.7. Patient being transfused as needed today. Patient denies any noted active bleeding. 06/21/2018 Ascites Patient denies abdominal pain or shortness of breath. Abdomen soft nontender, currently on Lasix//Aldactone daily. Anemia/coagulopathy Hemoglobin 6.7 hematocrit 19.5 platelet count 54 INR 2.4. FFP 3 units ordered to be given on 06/22/2018 at 0300. Will evaluate for possible bleeding varices , plan for EGD with possible banding in the a.m. 06/23/2018 Ascites Denies abdominal pain or shortness of breath. Lasix 20 mg p.o. twice daily/ spironolactone 100 mg p.o. daily Encephalopathy Patient awake alert and oriented we will continue to follow ammonia level. Zinc , Xifaxan and lactulose Anemia Patient is status post EGD with banding of esophageal varices, now on octreotide drip. Hemoglobin 8.7 hematocrit 25.0 platelet count 60 INR 1.9. No active bleeding reported. EGD findings as follows: 1. Portal gastropathy esophageal varices grade 2-s/p banding =3 2. Retroflexed views revealed a hiatal hernia. Recommend repeat EGD in 3 months unless otherwise indicated and hematology consult Plan -Clear liquid diet -Monitor for bleeding -Transfuse if needed -Lasix, spironolactone, zinc, Xifaxan, lactulose -Octreotide drip -Monitor labs -Ammonia level -Recommend hematology consult -Recommend EGD repeat in 3 months -Supportive care -Further recommendations to follow based on patient status and findings This patient has been seen by myself and Dr. RODRIGUES and this note is written on her behalf - Attending Attestation Dr. baum
--- NOTE | 2018-06-23 10:36 | P.PNPAL ---
Reason for Visit Reason for visit: a. To assist with evaluation and management of symptoms including: Encephalopathy, physical deconditioning b. To assist medical decision maker(s) with: better understanding of current medical conditions; weighing benefits/burdens of medical treatment options; making medical treatment decisions. Subjective Subjective/Interval History: Follow-up medically necessary for symptom management. Patient lying in bed, awake, oriented to self, place and situation. Patient denying pain, nausea or abdominal discomfort at this time. Remains afebrile, vital signs stable. Currently has Sandostatin infusion at 50 mcg/h. Laboratory workup today revealing WBC 3.2, hemoglobin 8.7, hematocrit 25.0, platelet count 260, potassium 4.8, BUN/creatinine 20/1.74. EGD on 06/22/18- revealed portal gastropathy-esophageal varices grade 2-status post banding and retroflex views revealed hiatal hernia. No active bleeding noted. Hematology consulted to further evaluate and manage patient with persistent anemia and history of liver disease. Case discussed with Sukhdeep Varghese APRN. Family/Friend Interactions: No family at bedside . Advance Directives Living Will: Completed, but not made available Health Care Surrogate: Copy in medical record Durable Power of Molder Trimmer: Completed, but not made available Advance Directives Date on File: 06/21/18 Health Care Surrogate Name and Number: HCS: Etelvina Kaba [phone] Alt: Homa Kaba [phone] Objective Vital Signs: Vital Signs 06/22/18 10:39 06/22/18 10:44 06/22/18 12:05 Temperature 98.5 F 98.2 F Pulse Rate 71 70 71 Respiratory Rate 18 19 Blood Pressure 121/57 L 126/58 L Pulse Oximetry 100 100 06/22/18 12:10 06/22/18 12:15 06/22/18 12:20 Temperature Pulse Rate 68 69 67 Respiratory Rate 16 17 16 Blood Pressure 120/60 117/62 116/65 Pulse Oximetry 98 97 100 06/22/18 12:30 06/22/18 15:02 06/22/18 15:05 Temperature 98 F 98.1 F 98.1 F Pulse Rate 68 77 72 Respiratory Rate 17 19 17 Blood Pressure 118/63 127/59 L 124/64 Pulse Oximetry 100 100 100 06/22/18 19:46 06/22/18 22:36 06/23/18 00:38 Temperature 97.8 F 98.1 F 98.4 F Pulse Rate 113 H 81 78 Respiratory Rate 18 18 20 Blood Pressure 117/58 L 130/72 130/56 L Pulse Oximetry 97 06/23/18 04:48 06/23/18 08:00 Temperature 97.8 F 98.1 F Pulse Rate 89 64 Respiratory Rate 18 18 Blood Pressure 119/63 116/61 Pulse Oximetry 96 98 Intake & Output 06/22/18 06/23/18 06/23/18 18:59 06:59 18:59 Intake Total 400 / 400 1380.5 / 1380.5 300 / 300 Output Total 150 / 150 1000 / 1000 Balance 250 / 250 380.5 / 380.5 300 / 300 Weight 117 kg Intake: IV 400.5 / 400.5 300 / 300 SandoSTATIN Inj 500 MCG In NS 400.5 / 400.5 200 / 200 Inj 500 ML @ 50 MCG/HR 50.05 mls/hr IV.CONT .Q10H [facility] Rx#: [id number] Flexbumin 25% Inj 100 ML @ 60 100 / 100 mls/hr IV.SIG Q12H [facility] Rx#: [id number] Oral 180 / 180 Anesthesia Amount 400 / 400 Intake (Blood Product) Amt 0 / 0 800 / 800 Plasma Thawed 5 Day Cp2d Unit 0 / 0 [id number] Plt Pheresis A Leukored Pas 0 / 0 Unit [id number] Rbc As-3 Leukoreduced Unit 400 / 400 [id number] Rbc As-3 Leukoreduced Unit 0 / 0 400 / 400 [id number] Output: Urine 150 / 150 1000 / 1000 Other: Date of Last Bowel Movement 06/23/18 06/23/18 Physical Exam: CONSTITUTIONAL/GENERAL: This is an chronically ill patient who appears older than stated age, in no acute distress. TUBES/LINES/DRAINS: PIV, condom catheter SKIN: Dry skin. no rashes, or lesions. Ecchymoses on upper extremities. Normothermic. Not diaphoretic. EYES: Pupils equal and round and reactive. Extraocular motions intact. Slight scleral icterus. No injection or drainage. Fundi not examined. ENT: Hearing grossly normal. Nose without bleeding or purulent drainage. Missing teeth. Moist oral mucosa CARDIOVASCULAR: Irregular rate and rhythm without murmurs, gallops, or rubs. No JVD. Peripheral pulses symmetric. RESPIRATORY/CHEST: Symmetric, unlabored respirations. CTA. No wheezes, rales, or rhonchi. GASTROINTESTINAL: Abdomen soft, non-tender, distended. No guarding. Active bowel sounds GENITOURINARY: Without palpable bladder distension. MUSCULOSKELETAL: Extremities without clubbing, cyanosis, or edema. No joint tenderness or effusion noted. No calf tenderness. No mottling or clubbing. NEUROLOGICAL: Awake and alert, oriented to self, place and situation. Moves all extremities to command. PSYCHIATRIC: No obvious anxiety/depression. no apparent hallucinations or other psychotic thought process. Diagnostic Tests Laboratory: Laboratory Results - last 72 hr 06/20/18 06/20/18 06/21/18 07:59 15:23 07:50 WBC 3.3 L RBC 1.90 L Hgb 7.3 L 6.7 L* Hct 21.4 L 19.5 L* MCV 102.9 H D MCH 35.3 H MCHC 34.3 RDW 19.7 H D Plt Count 54 L MPV 9.0 PT INR Sodium Potassium Chloride Carbon Dioxide Anion Gap BUN Creatinine Estimated GFR Random Glucose Calcium Ammonia MTS Gel Crossmatch See Detail Blood Bank Comment Bld Prod Order Comment 06/21/18 06/21/18 06/21/18 07:50 07:55 19:28 WBC RBC Hgb Hct MCV MCH MCHC RDW Plt Count MPV PT 23.9 H INR 2.4 Sodium 139 Potassium 4.4 Chloride 107 Carbon Dioxide 23.1 Anion Gap 9 BUN 21 H Creatinine 1.80 H Estimated GFR 46 L Random Glucose 93 Calcium 9.1 Ammonia 79 H MTS Gel Crossmatch Blood Bank Comment Bld Prod Order Comment 06/21/18 06/22/18 06/22/18 22:17 06:40 06:40 WBC 3.1 L RBC 1.73 L Hgb 6.2 L* Hct 17.8 L* MCV 102.9 H MCH 35.7 H MCHC 34.7 RDW 19.4 H Plt Count 45 L MPV 8.4 PT INR Sodium 138 Potassium 4.2 Chloride 106 Carbon Dioxide 22.5 Anion Gap 10 BUN 21 H Creatinine 1.85 H Estimated GFR 45 L Random Glucose 104 Calcium 9.5 Ammonia MTS Gel Crossmatch Blood Bank Comment Bld Prod Order Comment 06/22/18 06/22/18 06/22/18 07:17 08:22 09:21 WBC RBC Hgb Hct MCV MCH MCHC RDW Plt Count MPV PT 19.0 H INR 1.9 Sodium Potassium Chloride Carbon Dioxide Anion Gap BUN Creatinine Estimated GFR Random Glucose Calcium Ammonia MTS Gel Crossmatch See Detail Blood Bank Comment Bld Prod Order Comment 06/23/18 06/23/18 06/23/18 06:47 06:47 06:47 WBC 3.2 L RBC 2.49 L Hgb 8.7 L D Hct 25.0 L MCV 100.5 H MCH 35.1 H MCHC 34.9 RDW 20.8 H Plt Count 60 L D MPV 8.6 PT 19.7 H INR 1.9 Sodium 140 Potassium 4.8 Chloride 107 Carbon Dioxide 24.0 Anion Gap 9 BUN 20 H Creatinine 1.74 H Estimated GFR 48 L Random Glucose 137 H Calcium 9.1 Ammonia MTS Gel Crossmatch Blood Bank Comment Bld Prod Order Comment Result Diagrams: 06/23/18 06:47 06/23/18 06:47 Microbiology: Microbiology 06/19/18 23:50 Urine Culture - Final Clean Catch Urine No growth in 48 hours Imaging: Chest X-Ray 06/12/18 16:57 CONCLUSION: No infiltrates seen. Abdomen Ultrasound 06/13/18 00:00 CONCLUSION: 1. Moderate amount of ascitic fluid. Abdomen/Bladder Ultrasound 06/13/18 00:00 CONCLUSION: 1. No evidence of hydronephrosis. 2. There is some increased echogenicity of the renal parenchyma of the right kidney suggestive of chronic medical renal disease. 3. There is evidence of ascites. Head CT 06/14/18 00:00 CONCLUSION: 1. No acute intracranial abnormality. . Paracentesis Ultrasound 06/16/18 00:00 CONCLUSION: 1. Uncomplicated paracentesis. Abdomen/Pelvis CT 06/17/18 17:58 CONCLUSION: 1. Cirrhosis. 2. Moderate amount ascites. 3. Small gallstone in the gallbladder. Gallbladder collapsed. Procedures: 06/16/18-paracentesis with removal of 8400 mL's of peritoneal fluid 06/22/18 -EGD with band ligation of varices Assessment and Plan - Disease Oriented Problem List (1) Hyperammonemia (2) Liver cirrhosis (3) Hepatitis C (4) Anemia (5) Hepatorenal syndrome (6) Acute kidney injury (7) Urinary tract infection due to Klebsiella species (8) Atrial fibrillation - Symptom Scale (1) Encephalopathy 0-10 Scale: Unable to quantify Comment: Patient has history of liver cirrhosis with recurrent ascites. Came in with c/o altered mentation and has hyperammonemia. (2) Physical deconditioning 0-10 Scale: Unable to quantify Comment: Progressive. Multiple hospitalizations in a short period of time. Pertinent Non-Medical Issues: Psychosocial: Patient is originally from [place]. He relocated to [facility] March 2018 after an opening for Elderly Housing became available. Patient is to his current Etelvina Kaba for 35 years and they have known each other for 45 years. 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 Patient has 1 biological daughter and one stepdaughter. Spiritual: Patient is Zoroastrianism-requesting warehouse order selector services. Legal: Completed and signed healthcare surrogate form today. Patient will be provided with a copy of 5 wishes to complete at his own time. Ethical issues impacting care: None identified at this time. Important Contacts: Healthcare surrogate -spouse-Sesar Etelvina [phone] Alternate healthcare surrogate-daughter- Homa Kaba [phone] . Prognosis: Mr. Kaba is a 63-year-old patient with a medical history significant for hepatitis C, liver cirrhosis, atrial fibrillation, prostate cancer and psoriasis. Patient presented to the emergency room on 06/12/18 for evaluation of altered mental status. In the emergency room patient`s spouse reported that patient had been fatigued, weak, had decreased oral intake and distended abdomen. Clinical course complicated with persistent altered mental status, and anemia requiring blood transfusion. Given multiple ongoing comorbidities, patient remains at high risk for further complications, deterioration and decline. Code Status: Full Code Plan: PLAN: Legal decision maker: Patient appears to have insight regarding his medical condition and appears to be able to participate in medical decision making. Due to intermittent confusion, recommending shared decision-making with his spouse Etelvina Kaba whom he has designated as his healthcare surrogate. He also designated his daughter Homa Kaba is his alternate healthcare surrogate. Goals: Goals remain aggressive. Patient underwent EGD with banding . Provided patient and his spouse a copy of 5 Wishes. CODE STATUS: Full code SYMPTOMS: * Encephalopathy: Patient has history of liver cirrhosis with recurrent ascites. Came in with c/o altered mentation and has hyperammonemia. Last ammonia level on 06/20/18 was 55. Encephalopathy most likely due to hyperammonemia and urinary tract infection. Today patient is alert and oriented x3, with some forgetfulness. Mental status improving. Currently on lactulose and treatment for UTI with ceftriaxone. Continue to monitor. * Physical deconditioning: Progressive. Multiple hospitalizations in a short period of time. History of hepatitis C, cirrhosis, recurrent ascites. Patient` s health he has been progressively declining in the past few months. Patient is unable to participate in activities he usually was able to due to fatigue, weakness. Physical therapy consulted. With multiple comorbidities, patient will most likely continue to deteriorate and decline. Palliative care will continue to follow the patient during hospital course as condition evolves, to assist patient/decision-maker with understanding of their medical conditions, weighing benefits/burdens of treatment options, for clarification of goals of treatment. Additionally will assist with any symptoms of palliative concern Attestation Attestation: To help prompt me to consider important information that might be impacting today's encounter and assessment, information from prior notes written by myself or my colleagues may have been "brought forward" into today's note. My signature on this note, however, is an attestation that I personally performed the exam, history, and/or decision-making noted today, and, unless otherwise indicated, the interactions with patient, family, and staff as well as the review of records all occurred today. I also attest that the listed assessment and stated plan reflect my best clinical judgment today based on the combination of historical information, prior notes, and today's exam/ interactions. When time spent is documented, it refers only to time spent today by the signer, or if indicated, combined time spent today by collaborating physician/nurse practitioner.
--- NOTE | 2018-06-23 16:38 | P.PN ---
Subjective Interval history: Follow-up for hepatic encephalopathy, cirrhosis, anemia-patient seen and examined, awake, oriented x 3. Looking forward to getting out of bed. No active bleeding. HH stable today 8.03/29. Tolerating clear liquid diet well. No nausea, no vomiting. at bedside. Physical Exam Vital signs: Vital Signs 06/22/18 19:46 06/22/18 22:36 06/23/18 00:38 Temperature 97.8 F 98.1 F 98.4 F Pulse Rate 113 H 81 78 Respiratory Rate 18 20 Blood Pressure 117/58 L 130/72 130/56 L Pulse Oximetry 97 06/23/18 04:48 06/23/18 08:00 06/23/18 12:00 Temperature 97.8 F 98.1 F 98.5 F Pulse Rate 89 64 69 Respiratory Rate 16 Blood Pressure 119/63 116/61 122/68 Pulse Oximetry 96 98 99 Intake & Output 06/22/18 06/23/18 06/23/18 18:59 06:59 18:59 Intake Total 400 / 400 1380.5 / 1380.5 315 / 315 Output Total 150 / 150 1000 / 1000 Balance 250 / 250 380.5 / 380.5 315 / 315 Weight 117 kg Intake: IV 400.5 / 400.5 315 / 315 SandoSTATIN Inj 500 MCG In NS 400.5 / 400.5 200 / 200 Inj 500 ML @ 50 MCG/HR 50.05 mls/hr IV.CONT .Q10H SHOS[facility]NA Rx#: [id number] Flexbumin 25% Inj 100 ML @ 60 100 / 100 mls/hr IV.SIG Q12H SHOSHANA Rx#: [id number] NS Inj 250 ML @ 15 mls/hr IV. 15 / 15 SIG ONCE SHOSHANA Rx#:[id number] Oral 180 / 180 Anesthesia Amount 400 / 400 Intake (Blood Product) Amt 0 / 0 800 / 800 Plasma Thawed 5 Day Cp2d Unit 0 / 0 [id number] Plt Pheresis A Leukored Pas 0 / 0 Unit [id number] Rbc As-3 Leukoreduced Unit 400 / 400 [id number] Rbc As-3 Leukoreduced Unit 0 / 0 400 / 400 [id number] Output: Urine 150 / 150 1000 / 1000 Other: Date of Last Bowel Movement 06/23/18 06/23/18 Narrative: GENERAL: Well-nourished 63-year-old black male, chronically ill-appearing. SKIN: Warm and dry. HEAD: Atraumatic. Normocephalic. EYES: Pupils equal and round. Positive scleral icterus. No injection or drainage. ENT: No nasal bleeding or discharge. Mucous membranes pink and moist. NECK: Trachea midline. No JVD. CARDIOVASCULAR: S1-S2, irregularly irregular. Unable to detect any murmurs, no rubs, no gallops. RESPIRATORY: No accessory muscle use. Clear to auscultation. Breath sounds equal bilaterally. GASTROINTESTINAL: Abdomen soft, non-tender, nondistended. Hepatic and splenic margins not palpable. MUSCULOSKELETAL: Extremities without clubbing, cyanosis, or edema. No obvious deformities. NEUROLOGICAL: Awake, oriented x3. No focal deficits. Speech is clear. Mild tremors. PSYCHIATRIC: Appropriate mood and affect; insight and judgment normal. - Urinary Catheter Management Straight Cath placed during this visit: yes Reason for continuing: Not indwelling catheter Insertion date: 06/12/18 Insertion time: 19:10 Results - Labs CBC & Chem 7: 06/23/18 06:47 06/23/18 06:47 Laboratory Results - last 24 hr 06/22/18 06/23/18 06/23/18 08:22 06:47 06:47 WBC 3.2 L RBC 2.49 L Hgb 8.7 L D Hct 25.0 L MCV 100.5 H MCH 35.1 H MCHC 34.9 RDW 20.8 H Plt Count 60 L D MPV 8.6 PT INR Sodium 140 Potassium 4.8 Chloride 107 Carbon Dioxide 24.0 Anion Gap 9 BUN 20 H Creatinine 1.74 H Estimated GFR 48 L Random Glucose 137 H Calcium 9.1 MTS Gel Crossmatch See Detail 06/23/18 06:47 WBC RBC Hgb Hct MCV MCH MCHC RDW Plt Count MPV PT 19.7 H INR 1.9 Sodium Potassium Chloride Carbon Dioxide Anion Gap BUN Creatinine Estimated GFR Random Glucose Calcium MTS Gel Crossmatch Assessment and Plan - Assessment (1) Hepatorenal syndrome Code(s): K76.7 - Hepatorenal syndrome Status: Acute (2) Hyperammonemia Code(s): E72.20 - Disorder of urea cycle metabolism, unspecified Status: Acute (3) Hepatic encephalopathy Code(s): K72.90 - Hepatic failure, unspecified without coma Status: Acute (4) Liver disease, chronic, with cirrhosis Code(s): K74.60 - Unspecified cirrhosis of liver; K76.9 - Liver disease, unspecified Status: Chronic (5) Altered mental status Code(s): R41.82 - Altered mental status, unspecified Status: Acute (6) Atrial fibrillation Code(s): I48.91 - Unspecified atrial fibrillation Status: Chronic (7) Acute kidney injury Code(s): N17.9 - Acute kidney failure, unspecified Status: Acute (8) Anemia Code(s): D64.9 - Anemia, unspecified Status: Acute - Plan 63-year-old black male admitted for acute renal failure, metabolic encephalopathy. Hx of Cirrhosis. Other metabolic causes have been ruled out for his encephalopathy. CT head is negative, B12 was unremarkable, electrolytes otherwise unremarkable. Overall meld score is 33 giving about a 50 % mortality in about 3 months. Patient and are aware of this prognosis. Chronic hepatic encephalopathy-Slowed mentation is evident, likely secondary to hepatic failure and azotemia Continue treating underlying problems of hepatic failure and acute renal failure -zinc, continue lactulose and rifaximin Hepatitis C/cirrhosis/ascites/hyperbilirubinemia -Status post paracentesis with 8.4 L removed on 06/16 - Questran, Benadryl -Propanolol, spironolactone -Meld scores greater than 30, poor prognosis Hepatorenal syndrome -Likely secondary to dehydration 2/2 lactulose and/or third spacing with cirrhosis -Do not anticipate further significant improvement secondary to liver disease -Albumin 25 gm IV BID -Appreciate nephrology input Klebsiella UTI On Rocephin, discontinued and started on Ceftin 250 mg po bid x 3 days. generalized weakness -Likely multifactorial including metabolic encephalopathy element PT/OT/ST Symptomatic anemia, poss combination of chronic disease, poss slow variceal bleed. Hx of varices, had EGD in March 2018, had banding. Last colonoscopy 4 years ago, hx of polyps -S/P 1 units PRBC 06/20, Hgb 6.3, went up to 7.3 after. -HH again dropped today, 6.7/19.5, 2 units PRBC given 06/21 -HH dropped again, 6.2/17.8, 2 units PRBC given 06/22 -H&H stable today, 8.03/29 -went for EGD Portal gastrpathy/esophageal varices grade 2-s/p banding/hiatal hernia GI recommends non selective BB and PRBC, if still anemic poss colonoscopy and hematology consult -Continue propanolol 10 mg p.o. twice daily -continue Octreotide gtt now, until tomorrow -Hematology consulted. -if he continues to drop HH, may need colonoscopy Atrial fibrillation Was having occasional episodes of tachycardia, heart rate up to 140s. HR improved, remains 60-70s, -Discontinued Coreg, added propanolol-stable -Continue Cardizem 30 mg p.o. 4 times daily. -Patient not on systemic anticoagulation due to bleeding risk Coagulopathy, INR 2.0 -s/p vitamin K and FFP for GI procedure. -INR 1.9 Palliative care input appreciated-at this time goals remain aggressive however, both realistic of poor outcome if he goes into cardiac arrest. They will revisit code status if he continues to decline. Labs in am Code Status: Full code Discussed Condition With: RN, pt, CM Discharge Planning: Home with [facility], CM working on securing a few visits. Poss going Tuesday when GI clears. (5) Altered mental status Qualifiers: Altered mental status type: transient alteration of awareness Qualified Code( s): R40.4 - Transient alteration of awareness (6) Atrial fibrillation Qualifiers: Atrial fibrillation type: paroxysmal Qualified Code(s): I48.0 - Paroxysmal atrial fibrillation (8) Anemia Qualifiers: Anemia type: unspecified type Qualified Code(s): D64.9 - Anemia, unspecified
--- NOTE | 2018-06-23 17:30 | P.PNNP ---
Subjective Interval history: Patient received blood transfusion yesterday Had endoscopy grade 2 esophageal varices banding Physical Exam Vital signs: Vital Signs 06/22/18 19:46 06/22/18 22:36 06/23/18 00:38 Temperature 97.8 F 98.1 F 98.4 F Pulse Rate 113 H 81 78 Respiratory Rate 18 18 20 Blood Pressure 117/58 L 130/72 130/56 L Pulse Oximetry 97 06/23/18 04:48 06/23/18 08:00 06/23/18 12:00 Temperature 97.8 F 98.1 F 98.5 F Pulse Rate 89 64 69 Respiratory Rate 18 18 16 Blood Pressure 119/63 116/61 122/68 Pulse Oximetry 96 98 99 06/23/18 16:00 Temperature 97.6 F Pulse Rate 65 Respiratory Rate 14 Blood Pressure 122/67 Pulse Oximetry 99 Intake & Output 06/22/18 06/23/18 06/23/18 18:59 06:59 18:59 Intake Total 400 / 400 1380.5 / 1380.5 415 / 415 Output Total 150 / 150 1000 / 1000 Balance 250 / 250 380.5 / 380.5 415 / 415 Weight 117 kg Intake: IV 400.5 / 400.5 415 / 415 SandoSTATIN Inj 500 MCG In NS 400.5 / 400.5 200 / 200 Inj 500 ML @ 50 MCG/HR 50.05 mls/hr IV.CONT .Q10H [facility]OS[facility]NA Rx#: [id number] Flexbumin 25% Inj 100 ML @ 60 200 / 200 mls/hr IV.SIG Q12H SHOSHANA Rx#: [id number] NS Inj 250 ML @ 15 mls/hr IV. 15 / 15 SIG ONCE SHOSHAAN Rx#:[id number] Oral 180 / 180 Anesthesia Amount 400 / 400 Intake (Blood Product) Amt 0 / 0 800 / 800 Plasma Thawed 5 Day Cp2d Unit 0 / 0 [id number] Plt Pheresis A Leukored Pas 0 / 0 Unit [id number] Rbc As-3 Leukoreduced Unit 400 / 400 [id number] Rbc As-3 Leukoreduced Unit 0 / 0 400 / 400 [id number] Output: Urine 150 / 150 1000 / 1000 Other: Date of Last Bowel Movement 06/23/18 06/23/18 Narrative: GENERAL: Well-nourished 63-year-old black male, chronically ill-appearing. SKIN: Warm and dry. HEAD: Atraumatic. Normocephalic. EYES: Pupils equal and round. Positive scleral icterus. No injection or drainage. ENT: No nasal bleeding or discharge. Mucous membranes pink and moist. NECK: Trachea midline. No JVD. CARDIOVASCULAR: S1-S2, irregularly irregular. Unable to detect any murmurs, no rubs, no gallops. RESPIRATORY: No accessory muscle use. Clear to auscultation. Breath sounds equal bilaterally. GASTROINTESTINAL: Abdomen soft, non-tender, nondistended. Hepatic and splenic margins not palpable. MUSCULOSKELETAL: Extremities without clubbing, cyanosis, or edema. No obvious deformities. NEUROLOGICAL: Awake, oriented x3. No focal deficits. Speech is clear. Mild tremors. PSYCHIATRIC: Appropriate mood and affect; insight and judgment normal. - Urinary Catheter Management Straight Cath placed during this visit: yes Reason for continuing: Not indwelling catheter Insertion date: 06/12/18 Insertion time: 19:10 Assessment and Plan - Assessment (1) Acute kidney injury Code(s): N17.9 - Acute kidney failure, unspecified Status: Acute (2) Hyperammonemia Code(s): E72.20 - Disorder of urea cycle metabolism, unspecified Status: Acute (3) Hepatic encephalopathy Code(s): K72.90 - Hepatic failure, unspecified without coma Status: Acute (4) Coagulopathy Code(s): D68.9 - Coagulation defect, unspecified Status: Acute - Plan Patient with hepatorenal syndrome we will check your urine sodium and creatinine , on albumin 25 g IV every 12 hourly, Octreotide added, esophageal varices On treatment for hepatic encephalopathy total bilirubin still high had paracentesis 06/16 fluid removed Patient creatinine 1.7, received blood transfusion yesterday hemoglobin 8.7 Poor prognosis
[2018-06-24] MEDS: Octreotide Inj 500 MCG in Sodium Chlor 0.9% Inj 500 ML IV.CONT SCH ×3 (01:18→14:41)
[2018-06-24] MEDS: Albumin Human 25% Inj 100 ML IV.SIG SCH ×4 (03:48→16:14)
[2018-06-24 06:24] LABS: Baso % (Auto) 0.9 % (0.0-2.0); Eos # (Auto) 0.2 th/mm3 (0.0-0.4); Eos % (Auto) 4.3 % (0.0-4.0); Hematocrit 25.8 % (39.0-51.0); Hemoglobin 8.6 gm/dL (13.0-17.0); Lymph # (Auto) 0.6 th/mm3 (1.0-4.8); Lymph % (Auto) 16.6 % (9.0-44.0); Mean Corpuscular HGB Conc 33.4 % (32.0-36.0); Mean Corpuscular Hemoglobin 34.1 pg (27.0-34.0); Mean Corpuscular Volume 102.1 fL (80.0-100.0); Mean Platelet Volume 8.7 fL (7.0-11.0); Mono # (Auto) 0.5 th/mm3 (0.0-0.9); Mono % (Auto) 14.8 % (0.0-8.0); Neut # (Auto) 2.3 th/mm3 (1.8-7.7); Neut % (Auto) 63.4 % (16.0-70.0); Platelet Count 60 th/mm3 (150-450); Red Blood Count 2.53 mil/mm3 (4.50-5.90); Red Cell Distribution Width 20.4 % (11.6-17.2); White Blood Count 3.7 th/mm3 (4.0-11.0)
[2018-06-24 06:47] LABS: Albumin 3.2 g/dL (3.4-5.0); Anion Gap 7 meq/L (5-15); Aspartate Aminotransferase 70 U/L (15-37); Blood Urea Nitrogen 20 mg/dL (7-18); Calcium 8.8 mg/dL (8.5-10.1); Carbon Dioxide 23.5 meq/L (21.0-32.0); Chloride 111 meq/L (98-107); Glomerular Filtration Rate 46 mL/min (>89); Glucose,Random 124 mg/dL (74-106); Potassium 4.3 meq/L (3.5-5.1); Sodium 141 meq/L (136-145)
[2018-06-24 06:48] LABS: Alanine Aminotransferase 43 U/L (12-78)
[2018-06-24 06:51] LABS: Alkaline Phosphatase 68 U/L (45-117)
[2018-06-24 08:31] LABS: Ovalocytes 1+
[2018-06-24 08:32] LABS: Platelet Morphology Normal (Normal)
[2018-06-24] MEDS: Propranolol 10 MG Tablet PO SCH ×2 (09:02→20:28)
[2018-06-24] MEDS: rifAXIMin 550 MG Tablet PO SCH ×2 (09:02→20:28)
[2018-06-24] MEDS: dilTIAZem 30 MG Tablet PO SCH ×4 (09:02→20:28)
[2018-06-24] MEDS: Spironolactone 50 MG Tablet PO SCH (09:02)
[2018-06-24] MEDS: Furosemide 20 MG Tablet PO SCH ×2 (09:02→17:51)
[2018-06-24] MEDS: Cholestyramine Light 4 GM Packet PO SCH ×4 (09:03→20:28)
--- NOTE | 2018-06-24 12:26 | P.CON ---
History of Present Illness Service: Hematology/oncology Consult date: 06/24/18 Reason for Consult: Macrocytic anemia. Past history of prostate carcinoma. Primary Care Provider: Dunlo Channing Chief Complaint: Generalized weakness. Jaundice. History of Present Illness: Mr. Kaba is a very pleasant 63-year-old male, he is originally from the [facility], he has lived and worked in [place] for most of his adult life. He lives at home with his , they have 2 children; 2 adult daughters. 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 He reports having had a long standing history of hepatitis C which is untreated, he also reports having had a history of heavy alcohol consumption, he quit alcohol altogether 1.5 years ago. The patient and his relocated from [place] to the [facility] in March 2018. The patient's tells me 2 days after they relocated the patient was in the hospital with lower extremity edema and generalized weakness. She tells me since they moved up to [facility], the patient has been hospitalized at least 3 times for various issues relating to hepatic cirrhosis. The patient was brought in most recently the hospital on 06/12/2018 for management of symptoms pertaining to generalized weakness, loss of appetite, worsening jaundice, abdominal distention and on and off swelling of the feet. He was found upon presentation to have hyperbilirubinemia and progressive renal dysfunction. He has been assessed to have hepatorenal syndrome. Additionally, he has had worsening anemia which is macrocytic, he has required multiple blood products including 4 units packed red blood cell transfusions, 1 unit platelets and 6 units of FFP since hospitalization. The hematology service has been asked to see him for further workup and management of anemia. Review of Systems Constitutional: Reports anorexia, Reports chills, Reports headache(s), Reports lack of energy, Reports malaise, Reports weakness, Reports weight loss, Denies fever(s), Denies increased appetite Eyes: Denies change in vision Ears, Nose, Mouth, and Throat: Reports sore throat, Denies change in voice, Denies difficulty swallowing, Denies dizziness Cardiovascular: Reports leg swelling, Reports shortness of breath with activity , Denies chest pain Respiratory: Reports cough (11 number) Gastrointestinal: Reports abdominal pain, Denies bright, red blood in stools, Denies difficulty swallowing (ABD distention.) Genitourinary: Reports blood in urine Musculoskeletal: Reports abnormal walking, Reports muscle weakness Skin/Breast: Reports yellowing of the skin Neurologic: Reports dizziness, Reports tremor(s), Reports weakness Psychiatric: Denies abnormal sleep pattern, Denies anxiety Endocrine: Reports cold intolerance Hematologic/Lymphatic: Reports easy bleeding PMFSH - History History Provided By: Significant Other - Medical History Medical History: Medical History (Last Reviewed 06/24/18 @ 12:19 by Dinesh Whittington MD) Atrial fibrillation Cirrhosis Hepatitis C Prostate cancer Psoriasis - Surgical History Surgical History: Surgical History (Last Reviewed 06/24/18 @ 12:19 by Dinesh Whittington MD) History of esophagogastroduodenoscopy (EGD) History of abdominal paracentesis (Resolved) H/O prostate biopsy - Family History Family History: Family History (Last Reviewed 06/24/18 @ 12:19 by Dinesh Whittington MD) Mother Family history of acute myocardial infarction - Tobacco History Second Hand Smoke Exposure: No Tobacco Use In Past 30 Days: No Smoking Status: Former smoker Tobacco Type: Cigarettes - Alcohol History How Often Do You Have a Drink Containing Alcohol: Monthly or less (hx of alcohol consumption-quit approximately in December,) - Substance Use History Substance History: No History of Abuse - Travel History Recent Travel in the [place] Within the Last 8 Weeks: No Recent Travel Out of the Country Within the Last 8 Weeks: No - Immunization History Tetanus Immunization: >5 Years Hx Influenza Vaccine This Season: No Medications and Allergies Active Medications: Active Medications Cefuroxime Axetil (Ceftin) 250 mg PO Q12HR [facility] Stop: 06/25/18 08:59 Last Admin: 06/24/18 09:02 Dose: 250 mg Cholestyramine Resin (Questran Light 4 Gm Pkt) 2 gm PO QID [facility] Last Admin: 06/24/18 09:03 Dose: 2 gm Diltiazem HCl (Cardizem) 30 mg PO QID [facility] Last Admin: 06/24/18 09:02 Dose: 30 mg Furosemide (Lasix) 20 mg PO BID@0900,1800 [facility] Last Admin: 06/24/18 09:02 Dose: 20 mg Hydroxyzine HCl (Atarax) 50 mg PO Q6H PRN PRN Reason: ITCHING Last Admin: 06/23/18 12:10 Dose: 50 mg Albumin Human (Flexbumin 25% Inj) 100 mls @ 60 mls/hr IV.SIG Q12H [facility] Last Infusion: 06/24/18 08:40 Dose: Infused Sodium Chloride (Ns Inj) 500 mls @ 30 mls/hr IV.SIG .Q10H [facility] Last Admin: 06/22/18 10:38 Dose: Not Given Octreotide Acetate 500 mcg/ (Sodium Chloride) 500.5 mls @ 50.05 mls/hr IV.CONT .Q10H [facility] Last Infusion: 06/24/18 11:35 Dose: Infused Lactulose (Lactulose Liq) 30 ml PO QID [facility] Last Admin: 06/24/18 09:03 Dose: 30 ml Ondansetron HCl (Zofran Inj) 4 mg IV.PUSH Q6H PRN PRN Reason: NAUSEA OR VOMITING Last Admin: 06/20/18 17:24 Dose: 4 mg Pantoprazole Sodium (Protonix) 40 mg PO DAILY [facility] Last Admin: 06/24/18 09:02 Dose: 40 mg Propranolol HCl (Inderal) 10 mg PO BID [facility] Last Admin: 06/24/18 09:02 Dose: 10 mg Rifaximin (Xifaxan) 550 mg PO BID [facility] Last Admin: 06/24/18 09:02 Dose: 550 mg Spironolactone (Aldactone) 100 mg PO DAILY [facility] Last Admin: 06/24/18 09:02 Dose: 100 mg Tamsulosin HCl (Flomax) 0.4 mg PO DAILY [facility] Last Admin: 06/24/18 09:02 Dose: 0.4 mg Zinc Sulfate (Zinc-220) 220 mg PO DAILY [facility] Last Admin: 06/24/18 09:02 Dose: 220 mg Allergies Allergy/AdvReac Type Severity Reaction Status Date / Time chlorhexidine Allergy Mild Rash Verified 06/12/18 16:45 Physical Exam Vital signs: Vital Signs 06/23/18 16:00 06/23/18 20:00 06/23/18 20:40 Temperature 97.6 F 99.3 F Pulse Rate 65 65 60 Respiratory Rate 14 19 Blood Pressure 122/67 123/59 L Pulse Oximetry 99 99 06/24/18 00:00 06/24/18 04:14 06/24/18 08:00 Temperature 98.9 F 98.2 F 98.3 F Pulse Rate 82 56 L 74 Respiratory Rate 21 21 18 Blood Pressure 101/62 130/63 115/69 Pulse Oximetry 96 96 99 Intake & Output 06/23/18 06/24/18 06/24/18 18:59 06:59 18:59 Intake Total 2014 1740.5 / 1740.5 600.5 / 600.5 Output Total 700 / 700 680 / 680 Balance 1315 / 1315 1060.5 / 1060.5 600.5 / 600.5 Weight 117 kg Intake: IV 815 / 815 1500.5 / 1500.5 600.5 / 600.5 SandoSTATIN Inj 500 MCG In NS 600 / 600 500.5 / 500.5 500.5 / 500.5 Inj 500 ML @ 50 MCG/HR 50.05 mls/hr IV.CONT .Q10H SHOSHANA Rx#: [id number] Flexbumin 25% Inj 100 ML @ 60 200 / 200 100 / 100 mls/hr IV.SIG Q12H SHOSHANA Rx#: [id number] NS Inj 250 ML @ 15 mls/hr IV. 15 / 15 SIG ONCE SHOSHANA Rx#:[id number] Oral 1200 / 1200 240 / 240 Output: Urine 700 / 700 680 / 680 Other: Date of Last Bowel Movement 06/23/18 06/23/18 06/23/18 # Bowel Movements 1 Narrative: General: Elderly male, laying in bed, appears to be chronically ill. He is awake, alert and oriented. His white is at bedside and she does much of the talking. - Constitutional chronically ill appearing, cooperative - Routine HEENT Exam Head: Present: normocephalic Eye: Present: EOMI, PERRL, conjunctival icterus ENT: Absent: mucous membranes moist - Routine Neck Exam Present: supple. Absent: lymphadenopathy - Routine Respiratory Exam Present: CTA bilaterally (Decreased bibasilar breath sounds.). Absent: accessory muscle use - Routine Cardiovascular Exam Present: S1, S2, irregular rhythm - Routine Abdominal Exam Present: soft, distended. Absent: guarding, organomegaly (Free fluid noted. Ascites.) - Routine Extremities Exam Present: full ROM. Absent: cyanosis, edema, normal capillary refill, calf tenderness, tenderness, extremity cold to touch - Routine Skin Exam Present: intact, dry - Routine Neurological Exam Present: alert, oriented X3, CN II-XII intact. Absent: sensory deficit, motor deficit - Detailed Neurological Exam: Coma Scale Eye Opening: Spontaneous - Routine Psychiatric Exam Present: normal affect - Urinary Catheter Management Straight Cath placed during this visit: yes Reason for continuing: Not indwelling catheter Insertion date: 06/12/18 Insertion time: 19:10 Assessment and Plan - Plan Mr. Kaba is a 63-year-old male with multiple medical comorbid conditions, these include hepatitis C, history of alcohol abuse, hepatic cirrhosis, hypersplenism, remote history of prostate carcinoma which was treated with single modality radiation about 5 or 6 years ago. Additionally the patient does have history of A. fib, now with hepatorenal syndrome and esophageal varices. I have been asked to see him today for evaluation of macrocytic anemia which is associated with pancytopenia as well. The patient is being followed by various specialists including GI, nephrology, and our palliative care service. From a hematologic standpoint this patient has pancytopenia which is fairly typical in individuals hypersplenism due to splenic sequestration. In addition to pancytopenia he does have macrocytosis and seems to have been refractory to repeated red cell transfusions. Noted is a history of previous external beam radiation therapy to the prostate which also exposes the bone marrow to potentially ionizing radiation. Also noted is a renal dysfunction which can affect the marrow synthetic function as far as the erythrocyte lineage is concerned. There are no findings to suggest immature or dysplastic cells in circulation. Recommendations: 1. Pancytopenia associated macrocytic anemia: I will order serum iron studies, obtain stool for occult blood testing. At this point I do not think a bone marrow biopsy is needed. A primary bone marrow disorder such as myelodysplastic syndrome is not completely ruled out, the predicament is that if he does have a myelodysplastic syndrome treatment would be mainly supportive given his advanced hepatic cirrhosis and overall poor performance status. 2. History of prostate carcinoma: Check PSA levels. Continue ongoing care.
--- NOTE | 2018-06-24 13:46 | P.PNNP ---
Subjective Interval history: No acute complaints Physical Exam Vital signs: Vital Signs 06/23/18 16:00 06/23/18 20:00 06/23/18 20:40 Temperature 97.6 F 99.3 F Pulse Rate 65 65 60 Respiratory Rate 14 19 Blood Pressure 122/67 123/59 L Pulse Oximetry 99 99 06/24/18 00:00 06/24/18 04:14 06/24/18 08:00 Temperature 98.9 F 98.2 F 98.3 F Pulse Rate 82 56 L 74 Respiratory Rate 21 21 18 Blood Pressure 101/62 130/63 115/69 Pulse Oximetry 96 96 99 06/24/18 12:00 Temperature 98.6 F Pulse Rate 65 Respiratory Rate 18 Blood Pressure 127/67 Pulse Oximetry 98 Intake & Output 06/23/18 06/24/18 06/24/18 18:59 06:59 18:59 Intake Total 2014 1740.5 / 1740.5 600.5 / 600.5 Output Total 700 / 700 680 / 680 Balance 1315 / 1315 1060.5 / 1060.5 600.5 / 600.5 Weight 117 kg Intake: IV 815 / 815 1500.5 / 1500.5 600.5 / 600.5 SandoSTATIN Inj 500 MCG In NS 600 / 600 500.5 / 500.5 500.5 / 500.5 Inj 500 ML @ 50 MCG/HR 50.05 mls/hr IV.CONT .Q10H SHOSHANA Rx#: [id number] Flexbumin 25% Inj 100 ML @ 60 200 / 200 100 / 100 mls/hr IV.SIG Q12H SHOSHANA Rx#: [id number] NS Inj 250 ML @ 15 mls/hr IV. 15 / 15 SIG ONCE SHOSHANA Rx#:[id number] Oral 1200 / 1200 240 / 240 Output: Urine 700 / 700 680 / 680 Other: Date of Last Bowel Movement 06/23/18 06/23/18 06/23/18 # Bowel Movements 1 - Constitutional no acute distress - Routine HEENT Exam Head: Present: normocephalic Eye: Present: EOMI ENT: Present: mucous membranes moist - Routine Neck Exam Present: supple - Routine Respiratory Exam Present: decreased breath sounds - Routine Cardiovascular Exam Present: RRR - Routine Abdominal Exam Present: soft - Routine Extremities Exam Present: edema - Routine Skin Exam Present: intact - Routine Neurological Exam Present: alert, oriented X3 - Detailed Neurological Exam: Coma Scale Eye Opening: Spontaneous - Routine Psychiatric Exam Present: normal affect - Urinary Catheter Management Straight Cath placed during this visit: yes Reason for continuing: Not indwelling catheter Insertion date: 06/12/18 Insertion time: 19:10 Assessment and Plan - Assessment (1) Acute kidney injury Code(s): N17.9 - Acute kidney failure, unspecified Status: Acute (2) Hyperammonemia Code(s): E72.20 - Disorder of urea cycle metabolism, unspecified Status: Acute (3) Hepatic encephalopathy Code(s): K72.90 - Hepatic failure, unspecified without coma Status: Acute (4) Coagulopathy Code(s): D68.9 - Coagulation defect, unspecified Status: Acute - Plan Patient with hepatorenal syndrome On albumin 25 g IV every 12 hourly, Octreotide added, esophageal varices On treatment for hepatic encephalopathy total bilirubin still high had paracentesis 06/16 fluid removed Creatinine stable at 1.8. Initial VIOLA improved Hgb stable, follow with heme-onc. Likely near baseline renal function. Avoid NSAIDs, nephrotoxins. Poor prognosis
[2018-06-24 14:45] LABS: % Iron Saturation 93.3 % (20-50); Iron 94 mcg/dL (65-175); Lactate Dehydrogenase 209 U/L (87-241); Total Iron Binding Capacity 101 mcg/dL (250-450)
[2018-06-24 15:13] LABS: Ferritin 4213 ng/mL (26-388)
--- NOTE | 2018-06-24 15:46 | P.PN ---
Subjective Interval history: Follow-up for hepatic encephalopathy, cirrhosis, anemia-patient seen and examined, awake, oriented x 3. No active bleeding. Diet was advanced this morning, tolerated well. Having bowel movements, soft, no blood noted. Denies any chest pain, shortness of breath, no lightheadedness, no nausea, no vomiting. at bedside. They are looking forward to him going home, she has an appointment with GI on Tuesday. Physical Exam Vital signs: Vital Signs 06/23/18 16:00 06/23/18 20:00 06/23/18 20:40 Temperature 97.6 F 99.3 F Pulse Rate 65 65 60 Respiratory Rate 14 19 Blood Pressure 122/67 123/59 L Pulse Oximetry 99 99 06/24/18 00:00 06/24/18 04:14 06/24/18 08:00 Temperature 98.9 F 98.2 F 98.3 F Pulse Rate 82 56 L 74 Respiratory Rate 21 21 18 Blood Pressure 101/62 130/63 115/69 Pulse Oximetry 96 96 99 06/24/18 12:00 Temperature 98.6 F Pulse Rate 65 Respiratory Rate 18 Blood Pressure 127/67 Pulse Oximetry 98 Intake & Output 06/23/18 06/24/18 06/24/18 18:59 06:59 18:59 Intake Total 2014 1740.5 / 1740.5 600.5 / 600.5 Output Total 700 / 700 680 / 680 Balance 1315 / 1315 1060.5 / 1060.5 600.5 / 600.5 Weight 117 kg Intake: IV 815 / 815 1500.5 / 1500.5 600.5 / 600.5 SandoSTATIN Inj 500 MCG In NS 600 / 600 500.5 / 500.5 500.5 / 500.5 Inj 500 ML @ 50 MCG/HR 50.05 mls/hr IV.CONT .Q10H SHOSHANA Rx#: [id number] Flexbumin 25% Inj 100 ML @ 60 200 / 200 100 / 100 mls/hr IV.SIG Q12H SHOSHANA Rx#: [id number] NS Inj 250 ML @ 15 mls/hr IV. 15 / 15 SIG ONCE SHOSHANA Rx#:[id number] Oral 1200 / 1200 240 / 240 Output: Urine 700 / 700 680 / 680 Other: Date of Last Bowel Movement 06/23/18 06/23/18 06/23/18 # Bowel Movements 1 Narrative: GENERAL: Well-nourished 63-year-old black male, chronically ill-appearing. SKIN: Warm and dry. HEAD: Atraumatic. Normocephalic. EYES: Pupils equal and round. Positive scleral icterus. No injection or drainage. ENT: No nasal bleeding or discharge. Mucous membranes pink and moist. NECK: Trachea midline. No JVD. CARDIOVASCULAR: S1-S2, irregularly irregular. Unable to detect any murmurs, no rubs, no gallops. RESPIRATORY: No accessory muscle use. Clear to auscultation. Breath sounds equal bilaterally. GASTROINTESTINAL: Abdomen soft, non-tender, nondistended. Hepatic and splenic margins not palpable. MUSCULOSKELETAL: Extremities without clubbing, cyanosis, or edema. No obvious deformities. NEUROLOGICAL: Awake, oriented x3. No focal deficits. Speech is clear. Mild tremors. PSYCHIATRIC: Appropriate mood and affect; insight and judgment normal. - Urinary Catheter Management Straight Cath placed during this visit: yes Reason for continuing: Not indwelling catheter Insertion date: 06/12/18 Insertion time: 19:10 Results - Labs CBC & Chem 7: 06/24/18 06:00 06/24/18 06:00 Laboratory Results - last 24 hr 06/24/18 06/24/18 06/24/18 06:00 06:00 06:00 WBC 3.7 L RBC 2.53 L Hgb 8.6 L Hct 25.8 L MCV 102.1 H MCH 34.1 H MCHC 33.4 RDW 20.4 H Plt Count 60 L MPV 8.7 Prelim Diff (Auto) Slide review pending Neut % (Auto) 63.4 Lymph % (Auto) 16.6 Starke % (Auto) 14.8 H Eos % (Auto) 4.3 H Baso % (Auto) 0.9 Neut # (Auto) 2.3 Lymph # (Auto) 0.6 L Starke # (Auto) 0.5 Eos # (Auto) 0.2 Baso # (Auto) 0.0 WBC Differential . Diff Scan Auto diff confirmed Differential Comment . Platelet Estimate Low L Platelet Morphology Normal Ovalocytes 1+ H Haptoglobin Sodium 141 Potassium 4.3 Chloride 111 H Carbon Dioxide 23.5 Anion Gap 7 BUN 20 H Creatinine 1.82 H Estimated GFR 46 L Random Glucose 124 H Calcium 8.8 Iron TIBC % Saturation Ferritin Total Bilirubin 10.6 H AST 70 H ALT 43 Alkaline Phosphatase 68 Ammonia 48 H Lactate Dehydrogenase Total Protein 7.0 Albumin 3.2 L 06/24/18 14:00 WBC RBC Hgb Hct MCV MCH MCHC RDW Plt Count MPV Prelim Diff (Auto) Neut % (Auto) Lymph % (Auto) Starke % (Auto) Eos % (Auto) Baso % (Auto) Neut # (Auto) Lymph # (Auto) Starke # (Auto) Eos # (Auto) Baso # (Auto) WBC Differential Diff Scan Differential Comment Platelet Estimate Platelet Morphology Ovalocytes Haptoglobin Less than 10 L Sodium Potassium Chloride Carbon Dioxide Anion Gap BUN Creatinine Estimated GFR Random Glucose Calcium Iron 94 TIBC 101 L % Saturation 93.3 H Ferritin 4213 H Total Bilirubin AST ALT Alkaline Phosphatase Ammonia Lactate Dehydrogenase 209 Total Protein Albumin Assessment and Plan - Assessment (1) Hepatorenal syndrome Code(s): K76.7 - Hepatorenal syndrome Status: Acute (2) Hyperammonemia Code(s): E72.20 - Disorder of urea cycle metabolism, unspecified Status: Acute (3) Hepatic encephalopathy Code(s): K72.90 - Hepatic failure, unspecified without coma Status: Acute (4) Liver disease, chronic, with cirrhosis Code(s): K74.60 - Unspecified cirrhosis of liver; K76.9 - Liver disease, unspecified Status: Chronic (5) Altered mental status Code(s): R41.82 - Altered mental status, unspecified Status: Acute (6) Atrial fibrillation Code(s): I48.91 - Unspecified atrial fibrillation Status: Chronic (7) Acute kidney injury Code(s): N17.9 - Acute kidney failure, unspecified Status: Acute (8) Anemia Code(s): D64.9 - Anemia, unspecified Status: Acute - Plan 63-year-old black male admitted for acute renal failure, metabolic encephalopathy. Hx of Cirrhosis. Other metabolic causes have been ruled out for his encephalopathy. CT head is negative, B12 was unremarkable, electrolytes otherwise unremarkable. Overall meld score is 33 giving about a 50 % mortality in about 3 months. Patient and are aware of this prognosis. Chronic hepatic encephalopathy-Slowed mentation is evident, likely secondary to hepatic failure and azotemia Continue treating underlying problems of hepatic failure and acute renal failure -zinc, continue lactulose and rifaximin -Ammonia 48, stable Hepatitis C/cirrhosis/ascites/hyperbilirubinemia -Status post paracentesis with 8.4 L removed on 06/16 - Questran, Benadryl -Propanolol, spironolactone -Meld scores greater than 30, poor prognosis Hepatorenal syndrome -Likely secondary to dehydration 2/2 lactulose and/or third spacing with cirrhosis -Do not anticipate further significant improvement secondary to liver disease -Albumin 25 gm IV BID -Appreciate nephrology input Klebsiella UTI On Rocephin, discontinued and started on Ceftin 250 mg po bid x 3 days. generalized weakness -Likely multifactorial including metabolic encephalopathy element PT/OT/ST Symptomatic anemia, poss combination of chronic disease, poss slow variceal bleed. Hx of varices, had EGD in March 2018, had banding. Last colonoscopy 4 years ago, hx of polyps -S/P 1 units PRBC 06/20, Hgb 6.3, went up to 7.3 after. -HH again dropped today, 6.7/19.5, 2 units PRBC given 06/21 -HH dropped again, 6.2/17.8, 2 units PRBC given 06/22 -H&H stable today, 8.7/ -went for EGD Portal gastrpathy/esophageal varices grade 2-s/p banding/hiatal hernia GI recommends non selective BB and PRBC, if still anemic poss colonoscopy and hematology consult -Continue propanolol 10 mg p.o. twice daily -Discontinue octreotide drip. Diet advanced, tolerated well Appreciate hematology input, discussed with Dr. Whittington. Consultation note reviewed, iron studies, PSA levels are checked. Atrial fibrillation Was having occasional episodes of tachycardia, heart rate up to 140s. HR improved, remains 60-70s, -Discontinued Coreg, added propanolol-stable -Continue Cardizem 30 mg p.o. 4 times daily. -Patient not on systemic anticoagulation due to bleeding risk Coagulopathy, INR 2.0 -s/p vitamin K and FFP for GI procedure. -INR 1.9 Palliative care input appreciated-at this time goals remain aggressive however, both realistic of poor outcome if he goes into cardiac arrest. They will revisit code status if he continues to decline. Overall patient stable, neurologically appears back to baseline GI has signed off Plan to discharge tomorrow Code Status: Full code Discussed Condition With: RN, patient, Dr. Whittington Discharge Planning: Home with FABIANA Edmonds working on securing a few visits. Plan to discharge tomorrow (5) Altered mental status Qualifiers: Altered mental status type: transient alteration of awareness Qualified Code( s): R40.4 - Transient alteration of awareness (6) Atrial fibrillation Qualifiers: Atrial fibrillation type: paroxysmal Qualified Code(s): I48.0 - Paroxysmal atrial fibrillation (8) Anemia Qualifiers: Anemia type: unspecified type Qualified Code(s): D64.9 - Anemia, unspecified
[2018-06-25] MEDS: Albumin Human 25% Inj 100 ML IV.SIG SCH (03:53)
[2018-06-25 06:05] VITALS: O2SAT 99
[2018-06-25] MEDS: dilTIAZem 30 MG Tablet PO SCH ×2 (08:18→14:11)
[2018-06-25] MEDS: Spironolactone 50 MG Tablet PO SCH (08:18)
[2018-06-25] MEDS: Furosemide 20 MG Tablet PO SCH (08:19)
[2018-06-25] MEDS: Propranolol 10 MG Tablet PO SCH (08:19)
[2018-06-25] MEDS: rifAXIMin 550 MG Tablet PO SCH (08:20)
[2018-06-25] MEDS: Cholestyramine Light 4 GM Packet PO SCH ×2 (08:20→14:11)
--- NOTE | 2018-06-25 10:04 | P.DCO ---
- Diagnosis (1) Hepatic encephalopathy Status: Acute (2) Physical deconditioning Status: Acute - Physical Therapy Order: Evaluate and treat Instructions: NEEDS FRONT WHEEL WALKER - Home Health Nursing Order: Medical education, Signs/symptoms of disease process, Nursing assessment with vital signs - Case Management Consult Yes - Certification I have seen patient Eduardo Kaba on 06/25/18. My clinical findings support the need for the requested home health care services because: Hepatic encephalopathy, physical deconditioning, high risk for falls. Patient requires front wheeled rolling walker. Limited mobility due to disease progression, Deconditioned with increased weakness, Limited ability to care for self, Impaired cognition/judgement, High risk of falls I certify that my clinical findings support that this patient is homebound because: Impaired cognitive ability/safety, Unsteady gait/balance
[2018-06-25 10:17] VITALS: BP 120/68; PULSE 68; RESP 16; TEMP 98.7
--- NOTE | 2018-06-25 10:46 | P.PN ---
Subjective Interval history: Follow-up for hepatic encephalopathy, cirrhosis, anemia-patient seen and examined, awake, oriented x 3. Tolerating diet well. No abdominal pain. Having soft stools, no blood noted. Patient looking forward to going home. No acute changes overnight. He has been getting out of bed and ambulating to bathroom with walker. at bedside. Physical Exam Vital signs: Vital Signs 06/24/18 12:00 06/24/18 16:00 06/24/18 20:00 Temperature 98.6 F 98.4 F Pulse Rate 65 73 65 Respiratory Rate 18 16 Blood Pressure 127/67 120/65 Pulse Oximetry 98 98 06/24/18 20:25 06/25/18 00:00 06/25/18 04:00 Temperature 98.5 F 98.2 F 98.8 F Pulse Rate 67 67 93 H Respiratory Rate 18 17 18 Blood Pressure 106/63 133/61 120/76 Pulse Oximetry 100 100 99 06/25/18 08:00 Temperature 98.7 F Pulse Rate 68 Respiratory Rate 16 Blood Pressure 120/68 Pulse Oximetry 99 Intake & Output 06/24/18 06/25/18 06/25/18 18:59 06:59 18:59 Intake Total 3301.0 / 3301.0 440 / 440 Output Total 800 / 800 300 / 300 Balance 2501.0 / 2501.0 140 / 140 Weight 118.4 kg Intake: IV 1101.0 / 1101.0 200 / 200 SandoSTATIN Inj 500 MCG In NS 500.5 / 500.5 Inj 500 ML @ 50 MCG/HR 50.05 mls/hr IV.CONT .Q10H SHOSHANA Rx#: [id number] Flexbumin 25% Inj 100 ML @ 60 200 / 200 mls/hr IV.SIG Q12H SHOSHANA Rx#: [id number] Flexbumin 25% Inj 100 ML @ 60 100 / 100 mls/hr IV.SIG Q12H SHOSHANA Rx#: [id number] Oral 2200 / 2200 240 / 240 Output: Urine 800 / 800 300 / 300 Other: # Voids 1 Date of Last Bowel Movement 06/23/18 06/24/18 06/24/18 # Bowel Movements 2 2 Narrative: GENERAL: Well-nourished 63-year-old black male, chronically ill-appearing. SKIN: Warm and dry. HEAD: Atraumatic. Normocephalic. EYES: Pupils equal and round. Positive scleral icterus. No injection or drainage. ENT: No nasal bleeding or discharge. Mucous membranes pink and moist. NECK: Trachea midline. No JVD. CARDIOVASCULAR: S1-S2, irregularly irregular. Unable to detect any murmurs, no rubs, no gallops. RESPIRATORY: No accessory muscle use. Clear to auscultation. Breath sounds equal bilaterally. GASTROINTESTINAL: Abdomen soft, non-tender, nondistended. Hepatic and splenic margins not palpable. MUSCULOSKELETAL: Extremities without clubbing, cyanosis, or edema. No obvious deformities. NEUROLOGICAL: Awake, oriented x3. No focal deficits. Speech is clear. Mild tremors. PSYCHIATRIC: Appropriate mood and affect; insight and judgment normal. - Urinary Catheter Management Straight Cath placed during this visit: yes Reason for continuing: Not indwelling catheter Insertion date: 06/12/18 Insertion time: 19:10 Results - Labs CBC & Chem 7: 06/24/18 06:00 06/24/18 06:00 Laboratory Results - last 24 hr 06/24/18 14:00 Haptoglobin Less than 10 L Iron 94 TIBC 101 L % Saturation 93.3 H Ferritin 4213 H Lactate Dehydrogenase 209 Assessment and Plan - Assessment (1) Hepatic encephalopathy Code(s): K72.90 - Hepatic failure, unspecified without coma Status: Acute (2) Physical deconditioning Code(s): R53.81 - Other malaise Status: Acute (3) Altered mental status Code(s): R41.82 - Altered mental status, unspecified Status: Acute (4) Atrial fibrillation Code(s): I48.91 - Unspecified atrial fibrillation Status: Chronic (5) Acute kidney injury Code(s): N17.9 - Acute kidney failure, unspecified Status: Acute (6) Anemia Code(s): D64.9 - Anemia, unspecified Status: Acute (7) Hepatorenal syndrome Code(s): K76.7 - Hepatorenal syndrome Status: Acute (8) Hyperammonemia Code(s): E72.20 - Disorder of urea cycle metabolism, unspecified Status: Acute (9) Liver disease, chronic, with cirrhosis Code(s): K74.60 - Unspecified cirrhosis of liver; K76.9 - Liver disease, unspecified Status: Chronic - Plan 63-year-old black male admitted for acute renal failure, metabolic encephalopathy. Hx of Cirrhosis. Other metabolic causes have been ruled out for his encephalopathy. CT head is negative, B12 was unremarkable, electrolytes otherwise unremarkable. Overall meld score is 33 giving about a 50 % mortality in about 3 months. Patient and are aware of this prognosis. Chronic hepatic encephalopathy-Slowed mentation is evident, likely secondary to hepatic failure and azotemia Continue treating underlying problems of hepatic failure and acute renal failure -zinc, continue lactulose and rifaximin -Ammonia 48, stable Hepatitis C/cirrhosis/ascites/hyperbilirubinemia -Status post paracentesis with 8.4 L removed on 06/16 - Questran, Benadryl -Propanolol, spironolactone -Meld scores greater than 30, poor prognosis Hepatorenal syndrome -Likely secondary to dehydration 2/2 lactulose and/or third spacing with cirrhosis -Do not anticipate further significant improvement secondary to liver disease -Albumin 25 gm IV BID -Appreciate nephrology input -Appears to be at baseline Klebsiella UTI On Rocephin, discontinued and started on Ceftin 250 mg po bid x 3 days- completed generalized weakness -Likely multifactorial including metabolic encephalopathy element PT/OT/ST Symptomatic anemia, poss combination of chronic disease, poss slow variceal bleed. Hx of varices, had EGD in March 2018, had banding. Last colonoscopy 4 years ago, hx of polyps -S/P 1 units PRBC 06/20, Hgb 6.3, went up to 7.3 after. -HH again dropped today, 6.7/19.5, 2 units PRBC given 06/21 -HH dropped again, 6.2/17.8, 2 units PRBC given 06/22 -H&H stable, 8.7/ -went for EGD Portal gastrpathy/esophageal varices grade 2-s/p banding/hiatal hernia GI recommends non selective BB and PRBC, if still anemic poss colonoscopy and hematology consult -Continue propanolol 10 mg p.o. twice daily -off octreotide drip. Tolerating diet well Appreciate hematology input, discussed with Dr. Whittington. Consultation note reviewed, iron studies, PSA levels are checked. -Patient can follow-up as outpatient with Dr. Whittington. -PSA level still pending Atrial fibrillation Was having occasional episodes of tachycardia, heart rate up to 140s. HR improved, remains 60-70s, -Discontinued Coreg, added propanolol-stable -Continue Cardizem 30 mg p.o. 4 times daily-dec to TID on discharge -Patient not on systemic anticoagulation due to bleeding risk Coagulopathy, INR 2.0 -s/p vitamin K and FFP for GI procedure. -INR 1.9 Palliative care input appreciated-at this time goals remain aggressive however, both realistic of poor outcome if he goes into cardiac arrest. They will revisit code status if he continues to decline. Overall patient stable, neurologically appears back to baseline Has been ambulating to bathroom Case management consultation for home health care and Rx assistance ok to dc today Follow-up with GI tomorrow, has an appointment [place] up with hematology, Dr. Whittington in 2-3 weeks Continue with heart healthy diet Activity as tolerated Rolling walker has been given, fall precautions Code Status: Full code Discussed Condition With: RN, patient and , [facility] case records supervisor Discharge Planning: Plan to discharge today (3) Altered mental status Qualifiers: Altered mental status type: transient alteration of awareness Qualified Code( s): R40.4 - Transient alteration of awareness (4) Atrial fibrillation Qualifiers: Atrial fibrillation type: paroxysmal Qualified Code(s): I48.0 - Paroxysmal atrial fibrillation (6) Anemia Qualifiers: Anemia type: unspecified type Qualified Code(s): D64.9 - Anemia, unspecified
--- NOTE | 2018-06-25 10:48 | P.DS ---
Date of admission: 06/12/18 19:12 Primary care physician: Laura Snell Attending physician on discharge: Phani Johnson Anticipated date of discharge: 06/25/18 Brief History from admission: 63-year-old male with a past medical history significant for history of prostate cancer, hepatitis C, cirrhosis and atrial fibrillation not on systemic anticoagulation presents to the emergency department for the evaluation of altered mental status and increasing weakness. The patient's reports that for the past 2-3 days he has been fatigued. She reports increasing confusion and states he is "talking nonsense." She states he has been complaining of dizziness and being cold. She also reports an associated anorexia and states she cannot get the patient to eat or drink. He is fluid restricted to 1 L/day however she states he has not even been drinking that much. He has not taken his medications for the past 2-3 days. The patient endorses abdominal pain of breath. No chest pain or shortness of breath. No fever/chills. No nausea/ vomiting/diarrhea. No lateralizing signs/symptoms. DS: Diagnosis - Discharge Diagnosis (1) Hepatic encephalopathy Status: Acute (2) Physical deconditioning Status: Acute (3) Altered mental status Status: Acute (4) Atrial fibrillation Status: Chronic (5) Acute kidney injury Status: Acute (6) Anemia Status: Acute (7) Hepatorenal syndrome Status: Acute (8) Hyperammonemia Status: Acute (9) Liver disease, chronic, with cirrhosis Status: Chronic DS: Medications - Discharge Medications Prescriptions: cholestyramine-aspartame [Cholestyramine Light] 2 gm PO QID 30 Days #120 ea diltiazem HCl [Cardizem] 30 mg PO TID 30 Days #90 tab RX: furosemide 40 mg PO DAILY #30 tab RX: hydroxyzine HCl 50 mg PO Q6H PRN 30 Days #120 tab PRN Reason: Itching RX: lactulose 30 ml PO QID 30 Days #1 bottle pantoprazole [Protonix] 40 mg PO DAILY #30 tab RX: propranolol 10 mg PO BID 30 Days #60 tab rifaximin [Xifaxan] 550 mg PO BID #60 tab RX: spironolactone 100 mg PO DAILY #30 tab RX: tamsulosin 0.4 mg PO DAILY #30 tab RX: zinc sulfate 220 mg PO DAILY 30 Days #30 tab DS: Summary Hospital Course: 63-year-old male with a past medical history significant for history of prostate cancer, hepatitis C, cirrhosis and atrial fibrillation not on systemic anticoagulation presents to the emergency department for the evaluation of altered mental status and increasing weakness. The patient's reports that for the past 2-3 days he has been fatigued. She reports increasing confusion and states he is "talking nonsense." She states he has been complaining of dizziness and being cold. She also reports an associated anorexia and states she cannot get the patient to eat or drink. He is fluid restricted to 1 L/day however she states he has not even been drinking that much. He has not taken his medications for the past 2-3 days. The patient endorses abdominal pain of breath. No chest pain or shortness of breath. No fever/chills. No nausea/ vomiting/diarrhea. No lateralizing signs/symptoms. Patient was admitted, put on IV fluids. Building Maintenance Technician was consulted. It was thought that patient had hepatorenal syndrome secondary to dehydration secondary to lactulose and third spacing. He was put on albumin twice daily. Renal function improved to baseline. He was instructed to avoid nephrotoxic agents. Patient was given blood in the emergency room due to symptomatic anemia. H&H did improve initially. Patient had history of varices with EGD in March 2018 and had banding. HH started to trend down on 06/20/2018. He receive a total of 5 more units of blood over 3 days. GI was following patient. An EGD was planned and he was found with portal gastropathy, esophageal varices grade 2, had banding. He was put on octreotide drip. Was continue on propanolol. Because of the persistent anemia, hematology was consulted to investigate other possible causes. Hematology evaluated patient. Iron studies, LDH and PSA levels were done. Recommendations were made to monitor for now, likely cause of anemia was multifactorial, including prior history of radiation due to prostate cancer. did not want to proceed with more invasive treatment such as bone marrow biopsy and she was ok with follow up as OP. H&H stabilized, was at 7.4 his baseline. He was maintained on lactulose, rifaximin and zinc. He was also continued on Lasix and Aldactone.. His mentation did improve and ammonia trended down. Questran was also added. Abdominal ultrasounds were done, he was found with ascites. Had paracentesis on 06/16-- 8400 drained. Patient was noted with Celia aggarwal with episodes of tachycardia. He was started on Cardizem. His heart rate stabilized. Patient was not on systemic anticoagulation due to bleeding risk. Patient was coagulopathic, INR 2. Patient require FFP 2 units as well as vitamin K before undergoing EGD. INR remained at 1.9 after interventions. Physical therapy was consulted to assist with mobility During hospitalization, patient was also followed by palliative care to assist with goals of care. At this time, patient and family wanted to continue with aggressive care although they were realistic about his prognosis. They were interested in him following up as outpatient with GI and possibly try hepatitis C treatment. Case management was consulted to assist with discharge planning, patient had no funds, hospital agreed to provide a few visits of home health care. Medications were also provided. Patient's condition improved slowly, he was back to his mentation. He was tolerating diet well. No active bleeding. He was ambulating with walker. He was cleared by consultants for discharge. Patient was discharged home in stable condition - Time Spent with Patient Total time spent providing and/or coordinating discharge services: 40 minutes Greater than 30 minutes - Quality: VTE Deep Vein Thrombosis/Pulmonary Embolism Present on Admission: No Exam Vital signs: Vital Signs 06/24/18 12:00 06/24/18 16:00 06/24/18 20:00 Temperature 98.6 F 98.4 F Pulse Rate 65 73 65 Respiratory Rate 18 16 Blood Pressure 127/67 120/65 Pulse Oximetry 98 98 06/24/18 20:25 06/25/18 00:00 06/25/18 04:00 Temperature 98.5 F 98.2 F 98.8 F Pulse Rate 67 67 93 H Respiratory Rate 18 17 18 Blood Pressure 106/63 133/61 120/76 Pulse Oximetry 100 100 99 06/25/18 08:00 Temperature 98.7 F Pulse Rate 68 Respiratory Rate 16 Blood Pressure 120/68 Pulse Oximetry 99 Intake & Output 06/24/18 06/25/18 06/25/18 18:59 06:59 18:59 Intake Total 3301.0 / 3301.0 440 / 440 Output Total 800 / 800 300 / 300 Balance 2501.0 / 2501.0 140 / 140 Weight 118.4 kg Intake: IV 1101.0 / 1101.0 200 / 200 SandoSTATIN Inj 500 MCG In NS 500.5 / 500.5 Inj 500 ML @ 50 MCG/HR 50.05 mls/hr IV.CONT .Q10H SHOSHANA Rx#: [id number] Flexbumin 25% Inj 100 ML @ 60 200 / 200 mls/hr IV.SIG Q12H SHOSHANA Rx#: [id number] Flexbumin 25% Inj 100 ML @ 60 100 / 100 mls/hr IV.SIG Q12H SHOSHANA Rx#: [id number] Oral 2200 / 2200 240 / 240 Output: Urine 800 / 800 300 / 300 Other: # Voids 1 Date of Last Bowel Movement 06/23/18 06/24/18 06/24/18 # Bowel Movements 2 2 Results Procedures completed during hospitalization: EGD 06/22/2018 Paracentesis 06/16/2028 Labs on day of discharge: Labs from last 24 hours 06/24/18 06/24/18 14:00 14:00 Haptoglobin Less than 10 L Iron 94 TIBC 101 L % Saturation 93.3 H Ferritin 4213 H Lactate Dehydrogenase 209 Free PSA Pending Total PSA Pending PSA Free/Total Ratio Pending - Impressions ITS Impressions Chest X-Ray 06/12/18 16:57 CONCLUSION: No infiltrates seen. Abdomen Ultrasound 06/13/18 00:00 CONCLUSION: 1. Moderate amount of ascitic fluid. Abdomen/Bladder Ultrasound 06/13/18 00:00 CONCLUSION: 1. No evidence of hydronephrosis. 2. There is some increased echogenicity of the renal parenchyma of the right kidney suggestive of chronic medical renal disease. 3. There is evidence of ascites. Head CT 06/14/18 00:00 CONCLUSION: 1. No acute intracranial abnormality. . Paracentesis Ultrasound 06/16/18 00:00 CONCLUSION: 1. Uncomplicated paracentesis. Abdomen/Pelvis CT 06/17/18 17:58 CONCLUSION: 1. Cirrhosis. 2. Moderate amount ascites. 3. Small gallstone in the gallbladder. Gallbladder collapsed. Discharge Plan - Discharge Disposition Patient Disposition: W/Home Health Service - Discharge Condition Condition: Stable - Discharge Order Discharge Orders: Discharge Order (Routine); Ordered 06/25/18 Ordered By: Winter Varghese - Discharge Details Anticipated Discharge Date: 06/25/18 - Physicians Team Primary Care Provider: Laura Snell, Attending Provider: Phani Johnson Other Providers: Tati Whittington MD ; Kem Blair MD ; Neeta Graham MD ; Dinesh Whittington MD
[2018-06-25 11:12] LABS: Hematocrit 22.3 % (39.0-51.0); Hemoglobin 7.7 gm/dL (13.0-17.0); Mean Corpuscular HGB Conc 34.4 % (32.0-36.0); Mean Corpuscular Hemoglobin 35.1 pg (27.0-34.0); Mean Corpuscular Volume 102.2 fL (80.0-100.0); Mean Platelet Volume 9.3 fL (7.0-11.0); Platelet Count 54 th/mm3 (150-450); Red Blood Count 2.18 mil/mm3 (4.50-5.90); Red Cell Distribution Width 20.8 % (11.6-17.2); White Blood Count 3.3 th/mm3 (4.0-11.0)
[2018-06-25 11:30] LABS: Albumin 3.4 g/dL (3.4-5.0); Anion Gap 10 meq/L (5-15); Aspartate Aminotransferase 68 U/L (15-37); Blood Urea Nitrogen 19 mg/dL (7-18); Calcium 8.9 mg/dL (8.5-10.1); Carbon Dioxide 20.1 meq/L (21.0-32.0); Chloride 111 meq/L (98-107); Glomerular Filtration Rate 43 mL/min (>89); Glucose,Random 137 mg/dL (74-106); Potassium 4.4 meq/L (3.5-5.1); Sodium 141 meq/L (136-145)
[2018-06-25 11:31] LABS: Alanine Aminotransferase 42 U/L (12-78)
[2018-06-25 11:34] LABS: Alkaline Phosphatase 64 U/L (45-117); Total Protein 6.9 g/dL (6.4-8.2)
--- NOTE | 2018-06-25 15:18 | P.PNNP ---
Subjective Interval history: no acute complaints Physical Exam Vital signs: Vital Signs 06/24/18 16:00 06/24/18 20:00 06/24/18 20:25 Temperature 98.4 F 98.5 F Pulse Rate 73 65 67 Respiratory Rate 16 18 Blood Pressure 120/65 106/63 Pulse Oximetry 98 100 06/25/18 00:00 06/25/18 04:00 06/25/18 08:00 Temperature 98.2 F 98.8 F 98.7 F Pulse Rate 67 93 H 68 Respiratory Rate 17 18 16 Blood Pressure 133/61 120/76 120/68 Pulse Oximetry 100 99 99 Intake & Output 06/24/18 06/25/18 06/25/18 18:59 06:59 18:59 Intake Total 3301.0 / 3301.0 440 / 440 Output Total 800 / 800 300 / 300 Balance 2501.0 / 2501.0 140 / 140 Weight 118.4 kg Intake: IV 1101.0 / 1101.0 200 / 200 SandoSTATIN Inj 500 MCG In NS 500.5 / 500.5 Inj 500 ML @ 50 MCG/HR 50.05 mls/hr IV.CONT .Q10H SHOSHANA Rx#: [id number] Flexbumin 25% Inj 100 ML @ 60 200 / 200 mls/hr IV.SIG Q12H SHOSHANA Rx#: [id number] Flexbumin 25% Inj 100 ML @ 60 100 / 100 mls/hr IV.SIG Q12H SHOSHANA Rx#: [id number] Oral 2200 / 2200 240 / 240 Output: Urine 800 / 800 300 / 300 Other: # Voids 1 Date of Last Bowel Movement 06/23/18 06/24/18 06/24/18 # Bowel Movements 2 2 - Constitutional no acute distress - Routine HEENT Exam Head: Present: normocephalic Eye: Present: EOMI ENT: Present: mucous membranes moist - Routine Neck Exam Present: supple - Routine Respiratory Exam Present: decreased breath sounds - Routine Cardiovascular Exam Present: RRR - Routine Abdominal Exam Present: soft - Routine Skin Exam Present: intact - Routine Neurological Exam Present: alert - Detailed Neurological Exam: Coma Scale Eye Opening: Spontaneous - Routine Psychiatric Exam Present: normal affect - Urinary Catheter Management Straight Cath placed during this visit: yes Reason for continuing: Not indwelling catheter Insertion date: 06/12/18 Insertion time: 19:10 Assessment and Plan - Assessment (1) Acute kidney injury Code(s): N17.9 - Acute kidney failure, unspecified Status: Acute (2) Hyperammonemia Code(s): E72.20 - Disorder of urea cycle metabolism, unspecified Status: Acute (3) Hepatic encephalopathy Code(s): K72.90 - Hepatic failure, unspecified without coma Status: Acute (4) Coagulopathy Code(s): D68.9 - Coagulation defect, unspecified Status: Acute - Plan Patient with hepatorenal syndrome Had been receiving albumin 25 g IV every 12 hourly, Octreotide added, esophageal varices On treatment for hepatic encephalopathy total bilirubin still high had paracentesis 06/16 fluid removed Creatinine stable at 1.8-> 1.9 today. Initial VIOLA improved Hgb stable, follow with heme-onc. Stable for d/c from renal standpoint Likely near baseline renal function. Avoid NSAIDs, nephrotoxins.
[2018-06-27 03:42] LABS: Free PSA/PSA Ratio 0 ratio
== END 2018-06-25 15:49 | disposition home health service (06) ==
LOC: NEPC 16:06 → NEDA 19:12 → N07 20:35
PROVIDERS: ADMIT Internal Medicine; ATTEND Internal Medicine
PROC: PANENDO (2018-06-22 11:26)

== ENCOUNTER 2018-06-29 10:25 | Inpatient (IN) ==
--- NOTE | 2018-06-29 11:39 | ED ---
HPI General Chief complaint: GI Bleed Stated complaint: Poss Blood in Stool Time Seen by Provider: 06/29/18 11:07 Source: patient and family (, Etelvina) Limitations: no limitations History of Present Illness HPI Narrative: 63-year-old male with a history of untreated hepatitis C, prostate cancer, atrial fibrillation not on anticoagulants presents to the emergency department for evaluation of bright red bleeding per rectum that started last night. His , Etelvina, assist with a history. She states that patient had blood streaked stool last night. She said the patient had multiple episodes of diarrhea as he had been on lactulose. She says she stopped the lactulose and started a medication she believes was colestipol. She says he made a comment stating that his stomach was hurting so she tried to give him to something to eat. Says this morning patient woke up and had a "lot of blood" in the stool. He has not had a colonoscopy for 2 years but was considering having one here in the hospital just a couple of days ago. She states that patient did have an EGD where they discovered esophageal varices. At this time , patient denies fever, chills, chest pain, shortness of breath, abdominal pain , leg pain. Etelvina states that he does not appear swollen but his abdomen does appear larger than when he was discharged a couple days ago. Patient recently had a paracentesis completed 06/06/18 where 8400 cc of fluid was removed. complaint: Reports blood streaked stool and gross hematochezia Onset (ago): day(s) Relieving factors: none Exacerbating factors: none Context: Reports liver disease and known esophageal varices; Denies anticoagulant use Associated symptoms: Reports loss of appetite; Denies abdominal pain, nausea, vomiting and shortness of breath Treatments Prior to Arrival: Reports none Related Data Previous Rx's Medication Instructions Recorded cholestyramine-aspartame 2 gm PO QID 30 Days #120 ea 06/25/18 [Cholestyramine Light] diltiazem HCl [Cardizem] 30 mg PO TID 30 Days #90 tab 06/25/18 furosemide 40 mg PO DAILY #30 tab 06/25/18 hydroxyzine HCl 50 mg PO Q6H PRN 30 Days #120 tab 06/25/18 lactulose 30 ml PO QID 30 Days #1 bottle 10/21/18 pantoprazole [Protonix] 40 mg PO DAILY #30 tab 06/25/18 propranolol 10 mg PO BID 30 Days #60 tab 06/25/18 rifaximin [Xifaxan] 550 mg PO BID #60 tab 06/25/18 spironolactone 100 mg PO DAILY #30 tab 06/25/18 tamsulosin 0.4 mg PO DAILY #30 tab 06/25/18 zinc sulfate 220 mg PO DAILY 30 Days #30 tab 06/25/18 Allergies Allergy/AdvReac Type Severity Reaction Status Date / Time chlorhexidine Allergy Mild Rash Verified 06/12/18 16:45 Review of Systems ROS: all other systems reviewed are negative [facility] Social History Social History Substance History: No History of Abuse Second Hand Smoke Exposure: No Smoking Status: Former smoker Tobacco Type: Cigarettes How Often Do You Have a Drink Containing Alcohol: Monthly or less Hx Recent Travel: No Recent Travel in [facility] within the Last 8 Weeks: No Recent Out of Country Travel within the Last 8 Weeks: No Immunization History Tetanus Immunization: Unsure Exam Narrative Exam Narrative: GENERAL: WD, WN lethargic appearing SKIN: Warm and dry. HEAD: Atraumatic. Normocephalic. EYES: Pupils equal and round. No scleral icterus. No injection or drainage. ENT: No nasal bleeding or discharge. Mucous membranes pink and moist. NECK: Trachea midline. No JVD. CARDIOVASCULAR: Regular rate and rhythm. RESPIRATORY: No accessory muscle use. Clear to auscultation. Breath sounds equal bilaterally. GASTROINTESTINAL: Abdomen protuberant soft, non-tender, mildly distended. Hepatic and splenic margins not palpable. MUSCULOSKELETAL: Extremities without clubbing, cyanosis, or edema. No obvious deformities. No TTP to calves Rectal exam-bloody stool present at the rectum, good rectal tone, red bloody stool, positive NEUROLOGICAL: Awake and alert. No obvious cranial nerve deficits. Motor grossly within normal limits. Five out of 5 muscle strength in the arms and legs. Normal speech. PSYCHIATRIC: Appropriate mood and affect; insight and judgment normal. Course Initial Documented Vital Signs Temperature 98.6 F 06/29/18 10:45 Pulse Rate 80 06/29/18 10:45 Respiratory Rate 20 06/29/18 10:45 Blood Pressure 130/66 06/29/18 10:45 Pulse Oximetry 100 06/29/18 10:45 Last Documented Vital Signs Temperature 98.1 F 06/29/18 20:00 Pulse Rate 74 06/29/18 20:00 Respiratory Rate 17 06/29/18 20:00 Blood Pressure 117/57 L 06/29/18 20:00 Pulse Oximetry 98 06/29/18 20:00 Medical Decision Making MDM Narrative Medical decision making narrative: 63-year-old male presents to the emergency department for evaluation of bright red bleeding per rectum that started last night. His assists with a history. At this time, patient denies any fever , chills, chest pain, shortness of breath, abdominal pain. states that patient's abdomen has been swelling and notes that he had a paracentesis during his last visit. Lab ordered were evaluation and notable for WBC 2.8, H/H 8.8/25.2, INR 2.5 (not on anticoagulants), BUN/creatinine 20/1.95, ammonia elevated at 108. Rectal exam demonstrates good rectal tone, red stool. Based off of history and physical, I recommend admission as he is not on anticoagulants and has coagulopathy, rectal bleeding, and anemia. I spoke with Dr. Brooke who agreed to the admission. Medical Screen Exam Complete: Yes Emergency Medical Condition: Yes Medical Records Medical records reviewed: Yes I reviewed the patient's medical records. Patient presented in the beginning of the month for altered mental status. He was evaluated by nephrology and gastroenterology. He had a paracentesis completed 06/21/2018 with 8400 cc of fluid removed. He had an EGD here in the hospital as well. Colonoscopy was not done according to family. Palliative care was involved with patient's care 06/21/2018. Currently patient is a full code and does not wish to place patient in hospice. Pt saw Dr Bah Tuesday for a consult. Lab Data Result diagrams: 06/29/18 11:41 06/29/18 11:41 Lab Results 06/29/18 06/29/18 06/29/18 Range/Units 11:41 11:41 11:41 WBC 2.8 L (4.0-11.0) th/mm3 RBC 2.49 L (4.50-5.90) mil/mm3 Hgb 8.8 L (13.0-17.0) gm/dL Hct 25.2 L (39.0-51.0) % MCV 101.1 H (80.0-100.0) fL MCH 35.2 H (27.0-34.0) pg MCHC 34.8 (32.0-36.0) % RDW 19.7 H (11.6-17.2) % Plt Count 68 L (150-450) th/mm3 MPV 9.3 (7.0-11.0) fL Prelim Diff (Auto) Slide review pending Neut % (Auto) 66.7 (16.0-70.0) % Lymph % (Auto) 15.9 (9.0-44.0) % [place] % (Auto) 12.4 H (0.0-8.0) % Eos % (Auto) 3.4 (0.0-4.0) % Baso % (Auto) 1.6 (0.0-2.0) % Neut # (Auto) 1.9 (1.8-7.7) th/mm3 Lymph # (Auto) 0.5 L (1.0-4.8) th/mm3 [place] # (Auto) 0.4 (0.0-0.9) th/mm3 Eos # (Auto) 0.1 (0.0-0.4) th/mm3 Baso # (Auto) 0.0 (0.0-0.2) th/mm3 WBC Differential . Diff Scan Auto diff confirmed Differential Comment . Ovalocytes 1+ H (None) PT 24.8 H (9.8-11.6) sec INR 2.5 Ratio APTT 56.3 H (24.3-30.1) sec Sodium 139 (136-145) meq/L Potassium 4.5 (3.5-5.1) meq/L Chloride 110 H (98-107) meq/L Carbon Dioxide 19.7 L (21.0-32.0) meq/L Anion Gap 9 (5-15) meq/L BUN 20 H (7-18) mg/dL Creatinine 1.95 H (0.60-1.30) mg/dL Estimated GFR 42 L (>89) mL/min Random Glucose 121 H (74-106) mg/dL Calcium 8.9 (8.5-10.1) mg/dL Total Bilirubin 18.7 H (0.2-1.0) mg/dL AST 94 H (15-37) U/L ALT 54 (12-78) U/L Alkaline Phosphatase 89 (45-117) U/L Ammonia (11-32) mcmol/L Total Protein 7.7 D (6.4-8.2) g/dL Albumin 3.4 (3.4-5.0) g/dL Lipase 125 (73-393) U/L Blood Type Blood Type Recheck Antibody Screen 06/29/18 06/29/18 Range/Units 11:41 11:41 WBC (4.0-11.0) th/mm3 RBC (4.50-5.90) mil/mm3 Hgb (13.0-17.0) gm/dL Hct (39.0-51.0) % MCV (80.0-100.0) fL MCH (27.0-34.0) pg MCHC (32.0-36.0) % RDW (11.6-17.2) % Plt Count (150-450) th/mm3 MPV (7.0-11.0) fL Prelim Diff (Auto) Neut % (Auto) (16.0-70.0) % Lymph % (Auto) (9.0-44.0) % [place] % (Auto) (0.0-8.0) % Eos % (Auto) (0.0-4.0) % Baso % (Auto) (0.0-2.0) % Neut # (Auto) (1.8-7.7) th/mm3 Lymph # (Auto) (1.0-4.8) th/mm3 [place] # (Auto) (0.0-0.9) th/mm3 Eos # (Auto) (0.0-0.4) th/mm3 Baso # (Auto) (0.0-0.2) th/mm3 WBC Differential Diff Scan Differential Comment Ovalocytes (None) PT (9.8-11.6) sec INR Ratio APTT (24.3-30.1) sec Sodium (136-145) meq/L Potassium (3.5-5.1) meq/L Chloride (98-107) meq/L Carbon Dioxide (21.0-32.0) meq/L Anion Gap (5-15) meq/L BUN (7-18) mg/dL Creatinine (0.60-1.30) mg/dL Estimated GFR (>89) mL/min Random Glucose (74-106) mg/dL Calcium (8.5-10.1) mg/dL Total Bilirubin (0.2-1.0) mg/dL AST (15-37) U/L ALT (12-78) U/L Alkaline Phosphatase (45-117) U/L Ammonia 108 H (11-32) mcmol/L Total Protein (6.4-8.2) g/dL Albumin (3.4-5.0) g/dL Lipase (73-393) U/L Blood Type O Positive Blood Type Recheck Not needed Antibody Screen Negative Discharge Plan Discharge Disposition Patient Disposition: 30 Still Patient Discharge Condition Condition: Fair Discharge Details Diagnosis: Acute GI bleeding, Coagulopathy, Anemia, Hyperammonemia Physicians Team ED Provider: Ernst Lee ED Midlevel Provider: Luz Zhao Primary Care Provider: Laura Snell, Attending Provider: Kong Keenan Other Providers: Charles Lopez Status ED Status: Left Department Discharge Information Discharge Date/Time: 06/29/18 21:06
[2018-06-29] MEDS ORDERED: Sodium Chlor 0.9% Inj 500 ML IV.SIG SCH (12:00)
[2018-06-29 12:10] LABS: Baso % (Auto) 1.6 % (0.0-2.0); Eos # (Auto) 0.1 th/mm3 (0.0-0.4); Eos % (Auto) 3.4 % (0.0-4.0); Hematocrit 25.2 % (39.0-51.0); Hemoglobin 8.8 gm/dL (13.0-17.0); Lymph # (Auto) 0.5 th/mm3 (1.0-4.8); Lymph % (Auto) 15.9 % (9.0-44.0); Mean Corpuscular HGB Conc 34.8 % (32.0-36.0); Mean Corpuscular Hemoglobin 35.2 pg (27.0-34.0); Mean Corpuscular Volume 101.1 fL (80.0-100.0); Mean Platelet Volume 9.3 fL (7.0-11.0); Mono # (Auto) 0.4 th/mm3 (0.0-0.9); Mono % (Auto) 12.4 % (0.0-8.0); Neut # (Auto) 1.9 th/mm3 (1.8-7.7); Neut % (Auto) 66.7 % (16.0-70.0); Platelet Count 68 th/mm3 (150-450); Red Blood Count 2.49 mil/mm3 (4.50-5.90); Red Cell Distribution Width 19.7 % (11.6-17.2); White Blood Count 2.8 th/mm3 (4.0-11.0)
[2018-06-29 12:38] LABS: Albumin 3.4 g/dL (3.4-5.0); Anion Gap 9 meq/L (5-15); Aspartate Aminotransferase 94 U/L (15-37); Blood Urea Nitrogen 20 mg/dL (7-18); Calcium 8.9 mg/dL (8.5-10.1); Carbon Dioxide 19.7 meq/L (21.0-32.0); Chloride 110 meq/L (98-107); Glomerular Filtration Rate 42 mL/min (>89); Glucose,Random 121 mg/dL (74-106); Lipase 125 U/L (73-393); Potassium 4.5 meq/L (3.5-5.1); Sodium 139 meq/L (136-145)
[2018-06-29 12:40] LABS: INR 2.5 Ratio; Prothrombin Time 24.8 sec (9.8-11.6)
[2018-06-29 12:41] LABS: Activated Partial Thrombo Time 56.3 sec (24.3-30.1); Alanine Aminotransferase 54 U/L (12-78); Alkaline Phosphatase 89 U/L (45-117); Total Protein 7.7 g/dL (6.4-8.2)
[2018-06-29 12:59] LABS: Ovalocytes 1+
[2018-06-29] MEDS ORDERED: Acetaminophen 325 MG Tablet PO PRN (13:14)
--- NOTE | 2018-06-29 14:28 | P.HPIM ---
History of Present Illness Service: [facility] Primary Care Physician: Laura Snell Chief Complaint: BLOOD IN STOOL History of Present Illness: Patient is a 63-year-old -[place] gentleman with a known history of hepatitis C untreated as well as prostate cancer and atrial fibrillation who is not been on any anticoagulation due to cirrhosis and esophageal varices status post banding who presents to the emergency department with bright red bleeding per rectum that started last night. His whose name is Etelvina helps with the history. The states that the patient had blood streaked stool last night. She states that the patient had multiple episodes of diarrhea and has been on lactulose for his hepatic encephalopathy. She states she stopped the lactulose and started this morning woke up with a lot of blood in the stool. Has never had a colonoscopy in at least 2 years. Recently had a EGD here and had esophageal varices that were banded at stage II. He denies any fevers or chills, denies any chest pain, denies any shortness of breath, denies any abdominal pain, denies any's states that he does not appear swollen but the abdomen does appear larger than when he tried to couple days ago. Patient recently had a paracentesis June [id number] where had a 8400 mL's of fluid removed Patient has history of liver disease and known esophageal varices and therefore cannot be on any anticoagulation at all Patient INR is greater than 2 at all times Inpatient Certification: I certify that the inpatient services were ordered in accordance with Medicare regulations governing the order. This includes certification that hospital inpatient services are reasonable and necessary and in the case of services not specified as inpatient-only under 42 CFR 419.22(n), that they are appropriately provided as inpatient services in accordance to with the 2-midnight benchmark under 43 CFR 412.3(e) Estimated Total Length of Stay (Days): 4 Plans for Post Hospital Care: Not yet determined Review of Systems All other systems reviewed negative except as stated [facility] - History History Provided By: Patient - Medical History Medical History: Medical History (Last Updated 06/29/18 @ 14:17 by Kong Keenan DO) Esophageal varix bleeding Hepatic encephalopathy History of abdominal paracentesis History of coagulopathy Noncompliance Atrial fibrillation Cirrhosis Hepatitis C Prostate cancer Psoriasis - Surgical History Surgical History: Surgical History (Last Reviewed 06/29/18 @ 14:17 by Kong Keenan DO) H/O prostate biopsy History of esophagogastroduodenoscopy (EGD) History of abdominal paracentesis (Resolved) - Family History Family History: Family History (Last Reviewed 06/29/18 @ 14:17 by Kong Keenan DO) Mother Family history of acute myocardial infarction - Social History I have reviewed the patient's Social History: Yes - Tobacco History Second Hand Smoke Exposure: No Tobacco Use In Past 30 Days: No Smoking Status: Former smoker Tobacco Type: Cigarettes - Alcohol History How Often Do You Have a Drink Containing Alcohol: Monthly or less - Substance Use History Substance History: No History of Abuse - Travel History History of Recent Travel: No Recent Travel in the [place] Within the Last 8 Weeks: No Recent Travel Out of the Country Within the Last 8 Weeks: No - Immunization History Tetanus Immunization: Unsure Medications and Allergies Active Medications: Active Medications Acetaminophen (Tylenol) 650 mg PO Q4H PRN PRN Reason: Temp > 100.4 Al Hydroxide/Mg Hydroxide (Milk Of Magnesia Liq) 30 ml PO Q12H PRN PRN Reason: Mild Constipation Bisacodyl (Dulcolax Supp) 10 mg RECTAL DAILY PRN PRN Reason: SEVERE CONSITIPATION Cholestyramine Resin (Questran Light 4 Gm Pkt) 2 gm PO QID SHOSHANA Diltiazem HCl (Cardizem) 30 mg PO TID SHOSHANA Furosemide (Lasix) 40 mg PO DAILY SHOSHANA Hydroxyzine HCl (Atarax) 50 mg PO Q6H PRN PRN Reason: Itching Sodium Chloride (Ns Inj) 500 mls @ 0 mls/hr IV.SIG BOLUS SHOSHANA Sodium Chloride (Ns Inj) 1,000 mls @ 100 mls/hr IV.CONT .Q10H SHOSHANA Lactulose (Lactulose Liq) 30 ml PO QID SHOSHANA Non-Formulary Medication (Zinc Sulfate [Zinc Sulfate]) 220 mg PO DAILY SHOSHANA Ondansetron HCl (Zofran Inj) 4 mg IV.PUSH Q6H PRN PRN Reason: NAUSEA OR VOMITING Pantoprazole Sodium (Protonix Inj) 40 mg IV.PUSH BID SHOSHANA Propranolol HCl (Inderal) 10 mg PO BID SHOSHANA Rifaximin (Xifaxan) 550 mg PO BID SHOSHANA Senna/Docusate Sodium (Cally-Colace) 1 tab PO BID SHOSHANA Sennosides (Senokot) 17.2 mg PO Q12H PRN PRN Reason: Moderate Constipation Sodium Chloride (Ns Flush) 2 ml IV.FLUSH PRN PRN PRN Reason: FLUSH AFTER USING IV ACCESS Sodium Chloride (Ns Flush) 2 ml IV.FLUSH BID SHOSHANA Sodium Chloride (Ns Flush) 2 ml IV.FLUSH PRN PRN PRN Reason: FLUSH AFTER USING IV ACCESS Spironolactone (Aldactone) 100 mg PO DAILY [facility] Tamsulosin HCl (Flomax) 0.4 mg PO DAILY SHOSHANA Allergies Allergy/AdvReac Type Severity Reaction Status Date / Time chlorhexidine Allergy Mild Rash Verified 06/12/18 16:45 Exam Vital signs: Vital Signs 06/29/18 10:45 06/29/18 11:17 06/29/18 11:55 Temperature 98.6 F 98 F Pulse Rate 80 70 Respiratory Rate 20 18 Blood Pressure 130/66 128/75 Pulse Oximetry 100 100 100 Intake & Output 06/28/18 06/29/18 06/29/18 18:59 06:59 18:59 Weight 113.398 kg Narrative: GENERAL: Patient is arousable but is quite lethargic at this time with an elevated ammonia level. He is not able to give a good history. SKIN: Warm and dry. HEAD: Atraumatic. Normocephalic. EYES: Pupils equal and round. No scleral icterus. No injection or drainage. ENT: No nasal bleeding or discharge. Mucous membranes pink and moist. Oral mucosa moist NECK: Trachea midline. No JVD. Supple CARDIOVASCULAR: Regular rate and rhythm. S1-S2 no S3 or S4 RESPIRATORY: No accessory muscle use. Clear to auscultation. Breath sounds equal bilaterally. GASTROINTESTINAL: Abdomen soft, non-tender, distended. Hepatic and splenic margins not palpable. Obese MUSCULOSKELETAL: Extremities without clubbing, cyanosis, +1 lower extremity edema. No obvious deformities. NEUROLOGICAL: Awake and alert. No obvious cranial nerve deficits. Motor grossly within normal limits. Five out of 5 muscle strength in the arms and legs. ABNormal speech. PSYCHIATRIC: INAppropriate mood and affect; insight and judgment ABnormal. Results - Labs CBC & Chem 7: 06/29/18 11:41 06/29/18 11:41 Labs: Short CBC 06/29/18 Range/Units 11:41 WBC 2.8 L (4.0-11.0) th/mm3 Hgb 8.8 L (13.0-17.0) gm/dL Hct 25.2 L (39.0-51.0) % Plt Count 68 L (150-450) th/mm3 BMP 06/29/18 11:41 Sodium 139 Potassium 4.5 Chloride 110 H Carbon Dioxide 19.7 L BUN 20 H Creatinine 1.95 H Calcium 8.9 Liver Function 06/29/18 Range/Units 11:41 Total Bilirubin 18.7 H (0.2-1.0) mg/dL AST 94 H (15-37) U/L ALT 54 (12-78) U/L Alkaline Phosphatase 89 (45-117) U/L Albumin 3.4 (3.4-5.0) g/dL Caprini VTE Risk Assessment Caprini VTE Risk Assessment: Moderate/High Risk (score >= 2) Caprini Risk Assessment Model: Point Value = 1 Point Value = 2 Point Value = 3 Point Value = 5 Age 41-60 Minor surgery BMI > 25 kg/m2 Swollen legs Varicose veins or History of unexplained or recurrent spontaneous Oral contraceptives or hormone replacement Sepsis (< 1 month) Serious lung disease, including pneumonia (< 1 month) Abnormal pulmonary function Acute myocardial infarction Congestive heart failure (< 1 month) History of inflammatory bowel disease Medical patient at bed rest Age 61-74 Arthroscopic surgery Major open surgery (> 45 min) Laparoscopic surgery (> 45 min) Malignancy Confined to bed (> 72 hours) Immobilizing plaster cast Central venous access Age >= 75 History of VTE Family history of VTE Factor V Leiden Prothrombin [id number] Lupus anticoagulant Anticardiolipin antibodies Elevated serum homocysteine Heparin-induced thrombocytopenia Other congenital or acquired thrombophilia Stroke (< 1 month) Elective arthroplasty Hip, pelvis, or leg fracture Acute spinal cord injury (< 1 month) Prophylaxis Regimen: Total Risk Factor Score Risk Level Prophylaxis Regimen 0-1 Low Early ambulation 2 Moderate Order ONE of the following: *Sequential Compression Device (SCD) *Heparin 5000 units SQ BID 3-4 Higher Order ONE of the following medications: *Heparin 5000 units SQ TID *Enoxaparin/Lovenox 40 mg SQ daily (WT < 150 kg, CrCl > 30 mL/min) *Enoxaparin/Lovenox 30 mg SQ daily (WT < 150 kg, CrCl > 10-29 mL/min) *Enoxaparin/Lovenox 30 mg SQ BID (WT < 150 kg, CrCl > 30 mL/min) AND/OR *Sequential Compression Device (SCD) 5 or more Highest Order ONE of the following medications: *Heparin 5000 units SQ TID (Preferred with Epidurals) *Enoxaparin/Lovenox 40 mg SQ daily (WT < 150 kg, CrCl > 30 mL/min) *Enoxaparin/Lovenox 30 mg SQ daily (WT < 150 kg, CrCl > 10-29 mL/min) *Enoxaparin/Lovenox 30 mg SQ BID (WT < 150 kg, CrCl > 30 mL/min) AND *Sequential Compression Device (SCD) Assessment and Plan - Plan GI bleed Hepatic encephalopathy Esophageal varices Heme positive stool Hepatitis C Auto anticoagulation Coagulopathy due to hepatitis C -Consult gastroenterology -Restart all home medications including lactulose 4 times daily, Protonix drip twice daily, propranolol, Xifaxan, spironolactone -Ammonia levels in a.m. 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 Noncompliance with medication since patient stopped lactulose Atrial fibrillation continue on diltiazem- -patient is not a good candidate for anticoagulation due to his history of esophageal varices and recent banding BPH continue on Flomax daily Continue zinc as at home for the chronic zinc deficiency Transfuse as needed Restart cholestyramine Will defer any interventions to the worksite wellness practitioner Patient may need another paracentesis Anemia monitor for signs of active bleeding Chronic renal insufficiency and dehydration secondary to chronic meds for cirrhosis Leukopenia secondary to cirrhosis Thrombocytopenia secondary to cirrhosis Elevated ammonia and hepatic encephalopathy will make sure that he is back on his rifaximin and his lactulose Coagulopathy and vitamin K deficiency will restart vitamin K Code Status: Full code Discussed Condition With: RN and patient and emergency room physician and the at the bedside Discharge Planning: Pending improvement or family making different decisions
[2018-06-29] MEDS ORDERED: Bisacodyl 10 MG Supp RECTAL PRN (14:30)
--- NOTE | 2018-06-29 15:47 | P.CONGI ---
History of Present Illness Consult date: 06/29/18 Consult reason: GI bleed, hepatic encephalopathy Chief complaint: Anemia, GI bleed coagulopathy History of Present Illness: Mr. Kaba is a 63-year-old male patient with a medical history that is significant for hepatitis C (which is been untreated), psoriasis, hepatic encephalopathy, coagulopathy, cirrhosis, prostate cancer, atrial fibrillation, and GI bleed. Patient's reports that patient has had bright red blood per rectum onset yesterday evening. She reports that there was minimal stool noted in the commode, "mostly floating particles of bright red blood". His reports that for the past 3 days the patient has been having multiple episodes of diarrhea which she relates to his lactulose. She reports administering lactulose 4 times daily as ordered but did not administer any yesterday due to her fear that patient may become dehydrated from having diarrhea. This a.m. patient reported nausea without vomiting. Patient was recently discharged from [facility] on 06/25/2018. During last admission patient underwent an EGD where esophageal varices were found and banded. Patient denies any vomiting or hematemesis. Patient not currently on any anticoagulants due to his history of GI bleeding. Most recent paracentesis was done on 06/06/2018 where approximately 8000 mL's of peritoneal fluid was removed. Patient denies any excessive abdominal distention at this time, but does state it is somewhat larger than when he was discharged from the hospital. Patient is currently lethargic, oriented x 3 and is answering questions appropriately with the assistance of his spouse. Of note, patient noted to be encephalopathic with ammonia level 108. <Gena Rausch - Last Filed: 06/29/18 16:07> Review of Systems All other systems reviewed negative except as stated in HPI <Gena Rausch - Last Filed: 06/29/18 16:07> PMFSH - History History Provided By: Patient - Medical History Medical History: Medical History (Last Updated 06/29/18 @ 14:17 by Kong Keenan DO) Esophageal varix bleeding Hepatic encephalopathy History of abdominal paracentesis History of coagulopathy Noncompliance Atrial fibrillation Cirrhosis Hepatitis C Prostate cancer Psoriasis - Surgical History Surgical History: Surgical History (Last Reviewed 06/29/18 @ 14:17 by Kong Keenan DO) H/O prostate biopsy History of esophagogastroduodenoscopy (EGD) History of abdominal paracentesis (Resolved) - Family History Family History: Family History (Last Reviewed 06/29/18 @ 14:17 by Kong Keenan DO) Mother Family history of acute myocardial infarction - Tobacco History Second Hand Smoke Exposure: No Tobacco Use In Past 30 Days: No Smoking Status: Former smoker Tobacco Type: Cigarettes - Alcohol History How Often Do You Have a Drink Containing Alcohol: Monthly or less - Substance Use History Substance History: No History of Abuse - Travel History History of Recent Travel: No Recent Travel in the [place] Within the Last 8 Weeks: No Recent Travel Out of the Country Within the Last 8 Weeks: No - Immunization History Tetanus Immunization: Unsure <Gena Rausch - Last Filed: 06/29/18 16:07> - Medical History Medical History: Medical History (Last Updated 06/29/18 @ 14:17 by Kong Keenan DO) Esophageal varix bleeding Hepatic encephalopathy History of abdominal paracentesis History of coagulopathy Noncompliance Atrial fibrillation Cirrhosis Hepatitis C Prostate cancer Psoriasis - Surgical History Surgical History: Surgical History (Last Reviewed 06/29/18 @ 14:17 by Kong Keenan DO) H/O prostate biopsy History of esophagogastroduodenoscopy (EGD) History of abdominal paracentesis (Resolved) - Family History Family History: Family History (Last Reviewed 06/29/18 @ 14:17 by Kong Keenan DO) Mother Family history of acute myocardial infarction <Charles Lopez - Last Filed: 06/29/18 21:59> Medications and Allergies Active Medications: Active Medications Acetaminophen (Tylenol) 650 mg PO Q4H PRN PRN Reason: Temp > 100.4 Al Hydroxide/Mg Hydroxide (Milk Of Magnesia Liq) 30 ml PO Q12H PRN PRN Reason: Mild Constipation Bisacodyl (Dulcolax Supp) 10 mg RECTAL DAILY PRN PRN Reason: SEVERE CONSITIPATION Cholestyramine Resin (Questran Light 4 Gm Pkt) 2 gm PO QID [facility] Diltiazem HCl (Cardizem) 30 mg PO TID [facility] Furosemide (Lasix) 40 mg PO DAILY [facility] Hydroxyzine HCl (Atarax) 50 mg PO Q6H PRN PRN Reason: Itching Sodium Chloride (Ns Inj) 500 mls @ 0 mls/hr IV.SIG BOLUS [facility] Sodium Chloride (Ns Inj) 1,000 mls @ 100 mls/hr IV.CONT .Q10H [facility] Lactulose (Lactulose Liq) 30 ml PO QID [facility] Ondansetron HCl (Zofran Inj) 4 mg IV.PUSH Q6H PRN PRN Reason: NAUSEA OR VOMITING Pantoprazole Sodium (Protonix Inj) 40 mg IV.PUSH BID [facility] Phytonadione (Mephyton Liq) 5 mg PO DAILY [facility] Propranolol HCl (Inderal) 10 mg PO BID [facility] Rifaximin (Xifaxan) 550 mg PO BID [facility] Senna/Docusate Sodium (Cally-Colace) 1 tab PO BID [facility] Sennosides (Senokot) 17.2 mg PO Q12H PRN PRN Reason: Moderate Constipation Sodium Chloride (Ns Flush) 2 ml IV.FLUSH PRN PRN PRN Reason: FLUSH AFTER USING IV ACCESS Sodium Chloride (Ns Flush) 2 ml IV.FLUSH BID [facility] Sodium Chloride (Ns Flush) 2 ml IV.FLUSH PRN PRN PRN Reason: FLUSH AFTER USING IV ACCESS Spironolactone (Aldactone) 100 mg PO DAILY [facility] Tamsulosin HCl (Flomax) 0.4 mg PO DAILY [facility] Zinc Sulfate (Zinc-220) 220 mg PO DAILY [facility] <Gena Rausch - Last Filed: 06/29/18 16:07> Active Medications: Active Medications Acetaminophen (Tylenol) 650 mg PO Q4H PRN PRN Reason: Temp > 100.4 Al Hydroxide/Mg Hydroxide (Milk Of Magnesia Liq) 30 ml PO Q12H PRN PRN Reason: Mild Constipation Bisacodyl (Dulcolax Supp) 10 mg RECTAL DAILY PRN PRN Reason: SEVERE CONSITIPATION Cholestyramine Resin (Questran Light 4 Gm Pkt) 2 gm PO QID [facility] Last Admin: 06/29/18 21:18 Dose: Not Given Diltiazem HCl (Cardizem) 30 mg PO TID [facility] Last Admin: 06/29/18 17:48 Dose: 30 mg Furosemide (Lasix) 40 mg PO DAILY [facility] Hydroxyzine HCl (Atarax) 50 mg PO Q6H PRN PRN Reason: Itching Sodium Chloride (Ns Inj) 500 mls @ 0 mls/hr IV.SIG BOLUS [facility] Sodium Chloride (Ns Inj) 1,000 mls @ 100 mls/hr IV.CONT .Q10H [facility] Last Admin: 06/29/18 21:15 Dose: 100 mls/hr Lactulose (Lactulose Liq) 30 ml PO QID [facility] Last Admin: 06/29/18 21:12 Dose: 30 ml Ondansetron HCl (Zofran Inj) 4 mg IV.PUSH Q6H PRN PRN Reason: NAUSEA OR VOMITING Pantoprazole Sodium (Protonix Inj) 40 mg IV.PUSH BID [facility] Last Admin: 06/29/18 21:12 Dose: 40 mg Phytonadione (Mephyton Liq) 5 mg PO DAILY [facility] Last Admin: 06/29/18 16:03 Dose: 5 mg Propranolol HCl (Inderal) 10 mg PO BID [facility] Last Admin: 06/29/18 21:12 Dose: 10 mg Rifaximin (Xifaxan) 550 mg PO BID [facility] Last Admin: 06/29/18 21:12 Dose: 550 mg Senna/Docusate Sodium (Cally-Colace) 1 tab PO BID [facility] Last Admin: 06/29/18 21:12 Dose: 1 tab Sennosides (Senokot) 17.2 mg PO Q12H PRN PRN Reason: Moderate Constipation Sodium Chloride (Ns Flush) 2 ml IV.FLUSH PRN PRN PRN Reason: FLUSH AFTER USING IV ACCESS Sodium Chloride (Ns Flush) 2 ml IV.FLUSH BID [facility] Last Admin: 06/29/18 21:13 Dose: 2 ml Sodium Chloride (Ns Flush) 2 ml IV.FLUSH PRN PRN PRN Reason: FLUSH AFTER USING IV ACCESS Spironolactone (Aldactone) 100 mg PO DAILY [facility] Last Admin: 06/29/18 16:02 Dose: 100 mg Tamsulosin HCl (Flomax) 0.4 mg PO DAILY [facility] Last Admin: 06/29/18 16:02 Dose: 0.4 mg Zinc Sulfate (Zinc-220) 220 mg PO DAILY [facility] Last Admin: 06/29/18 16:03 Dose: 220 mg <Charles Lopez E - Last Filed: 06/29/18 21:59> Allergies Allergy/AdvReac Type Severity Reaction Status Date / Time chlorhexidine Allergy Mild Rash Verified 06/12/18 16:45 Exam Vital signs: Vital Signs 06/29/18 10:45 06/29/18 11:17 06/29/18 11:55 Temperature 98.6 F 98 F Pulse Rate 80 70 Respiratory Rate 20 18 Blood Pressure 130/66 128/75 Pulse Oximetry 100 100 100 Intake & Output 06/28/18 06/29/18 06/29/18 18:59 06:59 18:59 Weight 113.398 kg - Constitutional no acute distress - Routine HEENT Exam Head: Present: normocephalic Eye: Present: conjunctival icterus - Routine Neck Exam Present: supple - Routine Respiratory Exam Present: CTA bilaterally. Absent: accessory muscle use - Routine Cardiovascular Exam Present: RRR - Routine Abdominal Exam Present: soft, normoactive bowel sounds, distended. Absent: tenderness, guarding, firm - Routine Extremities Exam Present: edema, full ROM - Routine Skin Exam Present: dry, warm <Rausch,Gena - Last Filed: 06/29/18 16:07> Vital signs: Vital Signs 06/29/18 10:45 06/29/18 11:17 06/29/18 11:55 Temperature 98.6 F 98 F Pulse Rate 80 70 Respiratory Rate 20 18 Blood Pressure 130/66 128/75 Pulse Oximetry 100 100 100 06/29/18 20:00 Temperature 98.1 F Pulse Rate 74 Respiratory Rate 17 Blood Pressure 117/57 L Pulse Oximetry 98 Intake & Output 06/29/18 06/29/18 06/30/18 06:59 18:59 06:59 Weight 113.398 kg <Charles Lopez - Last Filed: 06/29/18 21:59> Results - Labs CBC & Chem 7: 06/29/18 11:41 06/29/18 11:41 Labs: Laboratory Results - last 24 hr 06/29/18 06/29/18 06/29/18 11:41 11:41 11:41 WBC 2.8 L RBC 2.49 L Hgb 8.8 L Hct 25.2 L MCV 101.1 H MCH 35.2 H MCHC 34.8 RDW 19.7 H Plt Count 68 L MPV 9.3 Prelim Diff (Auto) Slide review pending Neut % (Auto) 66.7 Lymph % (Auto) 15.9 Davison % (Auto) 12.4 H Eos % (Auto) 3.4 Baso % (Auto) 1.6 Neut # (Auto) 1.9 Lymph # (Auto) 0.5 L Davison # (Auto) 0.4 Eos # (Auto) 0.1 Baso # (Auto) 0.0 WBC Differential . Diff Scan Auto diff confirmed Differential Comment . Ovalocytes 1+ H PT 24.8 H INR 2.5 APTT 56.3 H Sodium 139 Potassium 4.5 Chloride 110 H Carbon Dioxide 19.7 L Anion Gap 9 BUN 20 H Creatinine 1.95 H Estimated GFR 42 L Random Glucose 121 H Calcium 8.9 Total Bilirubin 18.7 H AST 94 H ALT 54 Alkaline Phosphatase 89 Ammonia Total Protein 7.7 D Albumin 3.4 Lipase 125 Blood Type Blood Type Recheck Antibody Screen 06/29/18 06/29/18 11:41 11:41 WBC RBC Hgb Hct MCV MCH MCHC RDW Plt Count MPV Prelim Diff (Auto) Neut % (Auto) Lymph % (Auto) Davison % (Auto) Eos % (Auto) Baso % (Auto) Neut # (Auto) Lymph # (Auto) Davison # (Auto) Eos # (Auto) Baso # (Auto) WBC Differential Diff Scan Differential Comment Ovalocytes PT INR APTT Sodium Potassium Chloride Carbon Dioxide Anion Gap BUN Creatinine Estimated GFR Random Glucose Calcium Total Bilirubin AST ALT Alkaline Phosphatase Ammonia 108 H Total Protein Albumin Lipase Blood Type O Positive Blood Type Recheck Not needed Antibody Screen Negative <Gena Rausch - Last Filed: 06/29/18 16:07> - Labs CBC & Chem 7: 06/29/18 20:54 06/29/18 11:41 Labs: Laboratory Results - last 24 hr 06/29/18 06/29/18 06/29/18 11:41 11:41 11:41 WBC 2.8 L RBC 2.49 L Hgb 8.8 L Hct 25.2 L MCV 101.1 H MCH 35.2 H MCHC 34.8 RDW 19.7 H Plt Count 68 L MPV 9.3 Prelim Diff (Auto) Slide review pending Neut % (Auto) 66.7 Lymph % (Auto) 15.9 Davison % (Auto) 12.4 H Eos % (Auto) 3.4 Baso % (Auto) 1.6 Neut # (Auto) 1.9 Lymph # (Auto) 0.5 L Davison # (Auto) 0.4 Eos # (Auto) 0.1 Baso # (Auto) 0.0 WBC Differential . Diff Scan Auto diff confirmed Differential Comment . Ovalocytes 1+ H PT 24.8 H INR 2.5 APTT 56.3 H Sodium 139 Potassium 4.5 Chloride 110 H Carbon Dioxide 19.7 L Anion Gap 9 BUN 20 H Creatinine 1.95 H Estimated GFR 42 L Random Glucose 121 H Calcium 8.9 Total Bilirubin 18.7 H AST 94 H ALT 54 Alkaline Phosphatase 89 Ammonia Total Protein 7.7 D Albumin 3.4 Lipase 125 Free T4 Blood Type Blood Type Recheck Antibody Screen 06/29/18 06/29/18 06/29/18 11:41 11:41 20:54 WBC RBC Hgb 8.2 L Hct 24.1 L MCV MCH MCHC RDW Plt Count MPV Prelim Diff (Auto) Neut % (Auto) Lymph % (Auto) Davison % (Auto) Eos % (Auto) Baso % (Auto) Neut # (Auto) Lymph # (Auto) Davison # (Auto) Eos # (Auto) Baso # (Auto) WBC Differential Diff Scan Differential Comment Ovalocytes PT INR APTT Sodium Potassium Chloride Carbon Dioxide Anion Gap BUN Creatinine Estimated GFR Random Glucose Calcium Total Bilirubin AST ALT Alkaline Phosphatase Ammonia 108 H Total Protein Albumin Lipase Free T4 Blood Type O Positive Blood Type Recheck Not needed Antibody Screen Negative 06/29/18 20:54 WBC RBC Hgb Hct MCV MCH MCHC RDW Plt Count MPV Prelim Diff (Auto) Neut % (Auto) Lymph % (Auto) Davison % (Auto) Eos % (Auto) Baso % (Auto) Neut # (Auto) Lymph # (Auto) Davison # (Auto) Eos # (Auto) Baso # (Auto) WBC Differential Diff Scan Differential Comment Ovalocytes PT INR APTT Sodium Potassium Chloride Carbon Dioxide Anion Gap BUN Creatinine Estimated GFR Random Glucose Calcium Total Bilirubin AST ALT Alkaline Phosphatase Ammonia Total Protein Albumin Lipase Free T4 1.31 Blood Type Blood Type Recheck Antibody Screen <Charles Lopez E - Last Filed: 06/29/18 21:59> Assessment and Plan (1) Hyperammonemia Status: Acute Code(s): E72.20 - Disorder of urea cycle metabolism, unspecified (2) Hepatic encephalopathy Status: Acute Code(s): K72.90 - Hepatic failure, unspecified without coma (3) Liver disease, chronic, with cirrhosis Status: Chronic Code(s): K74.60 - Unspecified cirrhosis of liver; K76.9 - Liver disease, unspecified (4) Ascites of liver Status: Chronic Code(s): R18.8 - Other ascites (5) Cirrhosis Status: Chronic Code(s): K74.60 - Unspecified cirrhosis of liver - Plan 06/29/2018 Liver cirrhosis-likely related to untreated hepatitis C Patient spouse states they are working with financial services in order to obtain outpatient treatment for hepatitis C Elevated ammonia level-patient and spouse report compliance with taking lactulose and Xifaxan. Spouse reports exception of 06/28/2018 where lactulose was held due to increasing frequency of loose stools. She reports prior to that patient was having 6-7 loose stools a day with no noted bleeding. Ammonia level 108 on admission. Patient fatigued and lethargic but answering questions appropriately. Coagulopathy-INR 2.5, likely due to the above. Thrombocytopenia -platelet count 68, likely due to the above GI bleeding-hemoglobin 8.8 hematocrit 25.2, will follow labs closely and monitor for bleeding. Patient is and spouse report of bright red bleeding per rectum and deny back tarry stools or hematemesis. Elevated liver function tests- total bilirubin 18.7 AST 94 ALT 54 alk phos 89 albumin 3.4 Plan -Npo after midnight -Obtain consent for EGD -FFP- 4 units to be transfused at 0300 06/30/18 -Ammonia level in the a.m. -Monitor H&H -Monitor for any active bleeding -Transfuse if needed -Agree with vitamin K 5 mg p.o. daily for coagulopathy -Avoid anticoagulants -PPI -Continue Xifaxan, lactulose and zinc -Spironolactone and Lasix -Propranolol for portal hypertension -Questran -Supportive care -Further recommendations to follow based on patient's status and findings This patient has been seen by myself and Dr. Lopez and this note is written on his behalf - Attending Attestation Dr. Lopez <Gena Rausch - Last Filed: 06/29/18 16:07> (1) Hyperammonemia Status: Acute Code(s): E72.20 - Disorder of urea cycle metabolism, unspecified (2) Hepatic encephalopathy Status: Acute Code(s): K72.90 - Hepatic failure, unspecified without coma (3) Liver disease, chronic, with cirrhosis Status: Chronic Code(s): K74.60 - Unspecified cirrhosis of liver; K76.9 - Liver disease, unspecified (4) Ascites of liver Status: Chronic Code(s): R18.8 - Other ascites (5) Cirrhosis Status: Chronic Code(s): K74.60 - Unspecified cirrhosis of liver - Plan Patient seen and examined Agree with above Continue with current supportive care Monitor labs Plan on an EGD tomorrow we will correct coagulopathy with fresh frozen plasma to be given overnight Labs also consistent with <Charles Lopez E - Last Filed: 06/29/18 21:59> <Gena Rausch - Last Filed: 06/29/18 16:07> (5) Cirrhosis Qualifiers: Hepatic cirrhosis type: alcoholic cirrhosis Ascites presence: with ascites Qualified Code(s): K70.31 - Alcoholic cirrhosis of liver with ascites <Charles Lopez E - Last Filed: 06/29/18 21:59> (5) Cirrhosis Qualifiers: Hepatic cirrhosis type: alcoholic cirrhosis Ascites presence: with ascites Qualified Code(s): K70.31 - Alcoholic cirrhosis of liver with ascites
[2018-06-29] MEDS: Spironolactone 50 MG Tablet PO SCH (16:02)
[2018-06-29] MEDS: Propranolol 10 MG Tablet PO SCH ×2 (16:02→21:12)
[2018-06-29] MEDS: Phytonadione 5 MG/SWFI 5 ML Oral Syringe PO SCH (16:03)
[2018-06-29] MEDS: rifAXIMin 550 MG Tablet PO SCH ×2 (16:03→21:12)
[2018-06-29] MEDS: Pantoprazole Inj 40 MG Vial IV.PUSH SCH ×2 (16:04→21:12)
[2018-06-29] MEDS: Cholestyramine Light 4 GM Packet PO SCH ×2 (17:39→21:18)
[2018-06-29] MEDS: dilTIAZem 30 MG Tablet PO SCH (17:48)
[2018-06-29] MEDS: Senna/Docusate Sodium 8.6/50 MG Tablet PO SCH (21:12)
[2018-06-29] MEDS: Sod Chloride 0.9% Inj 1,000 ML IV.CONT SCH (21:15)
[2018-06-29 21:41] LABS: Hematocrit 24.1 % (39.0-51.0); Hemoglobin 8.2 gm/dL (13.0-17.0)
[2018-06-29 21:47] LABS: Hemoglobin A1c 4.1 % (4.3-6.0)
[2018-06-30] MEDS ORDERED: Sodium Chlor 0.9% Inj 500 ML IV.SIG SCH (02:00)
[2018-06-30 07:52] LABS: Baso % (Auto) 0.8 % (0.0-2.0); Eos # (Auto) 0.1 th/mm3 (0.0-0.4); Hematocrit 22.4 % (39.0-51.0); Hemoglobin 7.6 gm/dL (13.0-17.0); Lymph # (Auto) 0.4 th/mm3 (1.0-4.8); Lymph % (Auto) 16.6 % (9.0-44.0); Mean Corpuscular HGB Conc 34.1 % (32.0-36.0); Mean Corpuscular Hemoglobin 34.8 pg (27.0-34.0); Mean Corpuscular Volume 102.3 fL (80.0-100.0); Mono # (Auto) 0.4 th/mm3 (0.0-0.9); Mono % (Auto) 13.9 % (0.0-8.0); Neut # (Auto) 1.7 th/mm3 (1.8-7.7); Neut % (Auto) 65.7 % (16.0-70.0); Platelet Count 55 th/mm3 (150-450); Red Blood Count 2.19 mil/mm3 (4.50-5.90); Red Cell Distribution Width 19.6 % (11.6-17.2); White Blood Count 2.6 th/mm3 (4.0-11.0)
[2018-06-30 08:00] LABS: INR 1.8 Ratio; Prothrombin Time 18.7 sec (9.8-11.6)
[2018-06-30 08:20] LABS: Albumin 3.4 g/dL (3.4-5.0); Anion Gap 9 meq/L (5-15); Aspartate Aminotransferase 96 U/L (15-37); Blood Urea Nitrogen 20 mg/dL (7-18); Calcium 9.4 mg/dL (8.5-10.1); Carbon Dioxide 20.8 meq/L (21.0-32.0); Chloride 112 meq/L (98-107); Glomerular Filtration Rate 50 mL/min (>89); Glucose,Random 88 mg/dL (74-106); Magnesium 2.3 mg/dL (1.5-2.5); Potassium 4.7 meq/L (3.5-5.1); Sodium 142 meq/L (136-145)
[2018-06-30 08:23] LABS: Alanine Aminotransferase 52 U/L (12-78); Alkaline Phosphatase 85 U/L (45-117); Phosphorus 2.5 mg/dL (2.5-4.9); Total Protein 7.5 g/dL (6.4-8.2)
[2018-06-30 09:09] LABS: Platelet Morphology Normal (Normal)
[2018-06-30] MEDS: Sod Chloride 0.9% Inj 1,000 ML IV.CONT SCH ×3 (10:15→19:59)
[2018-06-30] MEDS: Furosemide 40 MG Tablet PO SCH ×2 (10:18→13:11)
[2018-06-30] MEDS: Spironolactone 50 MG Tablet PO SCH ×2 (10:18→13:25)
[2018-06-30] MEDS: Phytonadione 5 MG/SWFI 5 ML Oral Syringe PO SCH ×2 (10:18→13:11)
[2018-06-30] MEDS: Propranolol 10 MG Tablet PO SCH ×2 (10:18→20:06)
[2018-06-30] MEDS: dilTIAZem 30 MG Tablet PO SCH ×3 (10:18→19:30)
[2018-06-30] MEDS: Pantoprazole Inj 40 MG Vial IV.PUSH SCH ×3 (10:19→20:07)
[2018-06-30] MEDS: Cholestyramine Light 4 GM Packet PO SCH ×4 (10:19→20:07)
[2018-06-30] MEDS: Senna/Docusate Sodium 8.6/50 MG Tablet PO SCH ×2 (10:19→20:07)
[2018-06-30] MEDS: rifAXIMin 550 MG Tablet PO SCH ×3 (10:20→20:07)
--- NOTE | 2018-06-30 11:12 | P.PCN ---
Date of procedure: 06/30/18 Pre-op diagnosis: Cirrhosis, history of esophageal varices, and GI bleed Procedure: PROCEDURE PERFORMED EGD PROCEDURE: The procedure, risks and benefits were discussed with Patient/POA and informed consent was obtained. Anesthesia sedated Patient with Diprivan. Patient was placed in the left lateral decubitus position. EGD: The Pentax videoscope was introduced through the oropharynx and advanced to the second portion of the duodenum under direct visualization. Retroflexion was performed in the stomach. FINDINGS: The esophagus this appeared to be unremarkable at this point with no obvious varices but we do see to small ulcerations consistent with the recent banding and one band that still sloughing away at the distal and but no evidence of any active or recent bleeding from the esophagus The stomach the gastric mucosa had a cobblestone appearance consistent with mild hypertensive portal gastropathy no gastric varices were noted and no blood or bleeding The duodenum this was normal ESTIMATED BLOOD LOSS: None SPECIMENS REMOVED: None COMPLICATIONS: None IMPRESSION: Portal hypertensive gastropathy PLAN: Supportive care EGD in 1 year Anesthesia: MAC Surgeon: Charles Lopez Condition: stable Disposition: floor
[2018-06-30 14:07] LABS: Hematocrit 23.1 % (39.0-51.0); Hemoglobin 7.7 gm/dL (13.0-17.0)
--- NOTE | 2018-06-30 14:24 | P.PNIM ---
Subjective Interval history: Chief Complaint: BLOOD IN STOOL History of Present Illness: Patient is a 63-year-old -[place] gentleman with a known history of hepatitis C untreated as well as prostate cancer and atrial fibrillation who is not been on any anticoagulation due to cirrhosis and esophageal varices status post banding who presents to the emergency department with bright red bleeding per rectum that started last night. His whose name is Etelvina helps with the history. The states that the patient had blood streaked stool last night. She states that the patient had multiple episodes of diarrhea and has been on lactulose for his hepatic encephalopathy. She states she stopped the lactulose and started this morning woke up with a lot of blood in the stool. Has never had a colonoscopy in at least 2 years. Recently had a EGD here and had esophageal varices that were banded at stage II. He denies any fevers or chills, denies any chest pain, denies any shortness of breath, denies any abdominal pain, denies any's states that he does not appear swollen but the abdomen does appear larger than when he tried to couple days ago. Patient recently had a paracentesis June [id number] where had a 8400 mL's of fluid removed Patient has history of liver disease and known esophageal varices and therefore cannot be on any anticoagulation at all Patient INR is greater than 2 at all times 06-30 UNDERWENT EGD TODAY WITH NO ACTIVE SIGNS OF BLEEDING DW RN AND PT AND CM Physical Exam Vital signs: Vital Signs 06/29/18 20:00 06/30/18 00:00 06/30/18 03:25 Temperature 98.1 F 98 F 97.9 F Pulse Rate 74 79 Respiratory Rate 17 17 18 Blood Pressure 117/57 L 126/74 131/70 Pulse Oximetry 98 96 100 06/30/18 03:38 06/30/18 04:00 06/30/18 04:38 Temperature 98.1 F 98.9 F 98.7 F Pulse Rate 75 Respiratory Rate 18 18 18 Blood Pressure 131/70 130/68 130/68 Pulse Oximetry 100 100 100 06/30/18 05:06 06/30/18 05:19 06/30/18 06:13 Temperature 98.7 F 98.7 F 98.7 F Pulse Rate 75 70 72 Respiratory Rate 18 18 Blood Pressure 142/74 H 142/74 H 144/79 H Pulse Oximetry 100 100 06/30/18 06:17 06/30/18 06:48 06/30/18 08:00 Temperature 98.2 F 97.9 F Pulse Rate 75 80 74 Respiratory Rate 18 17 Blood Pressure 144/79 H 140/80 134/74 Pulse Oximetry 100 99 06/30/18 11:24 06/30/18 12:00 Temperature 97.9 F 98.5 F Pulse Rate 67 68 Respiratory Rate 18 18 Blood Pressure 131/60 106/63 Pulse Oximetry 100 99 Intake & Output 06/29/18 06/30/18 06/30/18 18:59 06:59 18:59 Intake Total 1117 / 1117 2150 / 2150 Balance 1117 / 1117 215 / 2149 Weight 113.398 kg 113.4 kg Intake: IV 1999 / 1999 NS Inj 1,000 ML @ 100 mls/hr IV 1000 / 1000 .CONT .Q10H SHOSHANA Rx#:[id number] LR 1000 mL Inj 1,000 ML @ 30 1000 / 1000 mls/hr IV.SIG .Q24H SHOSHANA Rx#: [id number] Anesthesia Amount 150 / 150 Intake (Blood Product) Amt 1117 / 1117 Plasma Thawed 5 Day Acda Unit 195 / 195 [id number] Plasma Thawed 5 Day Cp2d Unit 339 / 339 [id number] Plasma Thawed 5 Day Cp2d Unit 254 / 254 [id number] Plasma Thawed 5 Day Cp2d Unit 329 / 329 [id number] Other: # Voids 2 Date of Last Bowel Movement 06/29/18 # Bowel Movements 1 Narrative: GENERAL: Patient is arousable but is quite lethargic at this time with an elevated ammonia level. He is not able to give a good history. SKIN: Warm and dry. HEAD: Atraumatic. Normocephalic. EYES: Pupils equal and round. No scleral icterus. No injection or drainage. ENT: No nasal bleeding or discharge. Mucous membranes pink and moist. Oral mucosa moist NECK: Trachea midline. No JVD. Supple CARDIOVASCULAR: Regular rate and rhythm. S1-S2 no S3 or S4 RESPIRATORY: No accessory muscle use. Clear to auscultation. Breath sounds equal bilaterally. GASTROINTESTINAL: Abdomen soft, non-tender, distended. Hepatic and splenic margins not palpable. Obese MUSCULOSKELETAL: Extremities without clubbing, cyanosis, +1 lower extremity edema. No obvious deformities. NEUROLOGICAL: Awake and alert. No obvious cranial nerve deficits. Motor grossly within normal limits. Five out of 5 muscle strength in the arms and legs. ABNormal speech. PSYCHIATRIC: INAppropriate mood and affect; insight and judgment ABnormal. Results - Labs CBC & Chem 7: 06/30/18 13:28 06/30/18 07:35 Laboratory Results - last 24 hr 06/29/18 06/29/18 06/29/18 20:54 20:54 20:54 WBC RBC Hgb 8.2 L Hct 24.1 L MCV MCH MCHC RDW Plt Count MPV Prelim Diff (Auto) Neut % (Auto) Lymph % (Auto) [place] % (Auto) Eos % (Auto) Baso % (Auto) Neut # (Auto) Lymph # (Auto) [place] # (Auto) Eos # (Auto) Baso # (Auto) WBC Differential Diff Scan Differential Comment Platelet Estimate Platelet Morphology PT INR Sodium Potassium Chloride Carbon Dioxide Anion Gap BUN Creatinine Estimated GFR Random Glucose Hemoglobin A1c 4.1 L Calcium Phosphorus Magnesium Total Bilirubin AST ALT Alkaline Phosphatase Ammonia Total Protein Albumin TSH Free T4 1.31 Blood Bank Comment 06/29/18 06/29/18 06/30/18 20:54 22:17 07:35 WBC 2.6 L RBC 2.19 L Hgb 7.6 L Hct 22.4 L MCV 102.3 H MCH 34.8 H MCHC 34.1 RDW 19.6 H Plt Count 55 L MPV 9.0 Prelim Diff (Auto) Slide review pending Neut % (Auto) 65.7 Lymph % (Auto) 16.6 [place] % (Auto) 13.9 H Eos % (Auto) 3.0 Baso % (Auto) 0.8 Neut # (Auto) 1.7 L Lymph # (Auto) 0.4 L [place] # (Auto) 0.4 Eos # (Auto) 0.1 Baso # (Auto) 0.0 WBC Differential . Diff Scan Auto diff confirmed Differential Comment . Platelet Estimate Low L Platelet Morphology Normal PT INR Sodium Potassium Chloride Carbon Dioxide Anion Gap BUN Creatinine Estimated GFR Random Glucose Hemoglobin A1c Calcium Phosphorus Magnesium Total Bilirubin AST ALT Alkaline Phosphatase Ammonia Total Protein Albumin TSH 1.710 Free T4 Blood Bank Comment 06/30/18 06/30/18 06/30/18 07:35 07:35 07:35 WBC RBC Hgb Hct MCV MCH MCHC RDW Plt Count MPV Prelim Diff (Auto) Neut % (Auto) Lymph % (Auto) [place] % (Auto) Eos % (Auto) Baso % (Auto) Neut # (Auto) Lymph # (Auto) [place] # (Auto) Eos # (Auto) Baso # (Auto) WBC Differential Diff Scan Differential Comment Platelet Estimate Platelet Morphology PT 18.7 H INR 1.8 Sodium 142 Potassium 4.7 Chloride 112 H Carbon Dioxide 20.8 L Anion Gap 9 BUN 20 H Creatinine 1.68 H Estimated GFR 50 L Random Glucose 88 Hemoglobin A1c Calcium 9.4 Phosphorus 2.5 Magnesium 2.3 Total Bilirubin 18.7 H AST 96 H ALT 52 Alkaline Phosphatase 85 Ammonia 82 H Total Protein 7.5 Albumin 3.4 TSH Free T4 Blood Bank Comment 06/30/18 13:28 WBC RBC Hgb 7.7 L Hct 23.1 L MCV MCH MCHC RDW Plt Count MPV Prelim Diff (Auto) Neut % (Auto) Lymph % (Auto) [place] % (Auto) Eos % (Auto) Baso % (Auto) Neut # (Auto) Lymph # (Auto) [place] # (Auto) Eos # (Auto) Baso # (Auto) WBC Differential Diff Scan Differential Comment Platelet Estimate Platelet Morphology PT INR Sodium Potassium Chloride Carbon Dioxide Anion Gap BUN Creatinine Estimated GFR Random Glucose Hemoglobin A1c Calcium Phosphorus Magnesium Total Bilirubin AST ALT Alkaline Phosphatase Ammonia Total Protein Albumin TSH Free T4 Blood Bank Comment - Procedures Date of procedure: 06/30/18 Pre-op diagnosis: Cirrhosis, history of esophageal varices, and GI bleed Procedure: PROCEDURE PERFORMED EGD PROCEDURE: The procedure, risks and benefits were discussed with Patient/POA and informed consent was obtained. Anesthesia sedated Patient with Diprivan. Patient was placed in the left lateral decubitus position. EGD: The Pentax videoscope was introduced through the oropharynx and advanced to the second portion of the duodenum under direct visualization. Retroflexion was performed in the stomach. FINDINGS: The esophagus this appeared to be unremarkable at this point with no obvious varices but we do see to small ulcerations consistent with the recent banding and one band that still sloughing away at the distal and but no evidence of any active or recent bleeding from the esophagus The stomach the gastric mucosa had a cobblestone appearance consistent with mild hypertensive portal gastropathy no gastric varices were noted and no blood or bleeding The duodenum this was normal ESTIMATED BLOOD LOSS: None SPECIMENS REMOVED: None COMPLICATIONS: None IMPRESSION: Portal hypertensive gastropathy PLAN: Supportive care EGD in 1 year Anesthesia: MAC Surgeon: Charles Lopez Condition: stable Disposition: floor Documented By: Charles Lopez MD Assessment and Plan - Plan GI bleed - HBG IS NOW 7.7 Hepatic encephalopathy Esophageal varices Heme positive stool Hepatitis C Auto anticoagulation Coagulopathy due to hepatitis C -Consult gastroenterology -Restart all home medications including lactulose 4 times daily, Protonix drip twice daily, propranolol, Xifaxan, spironolactone -Ammonia levels in a.m. 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 to the boiler coverer helper Patient may need another paracentesis Anemia monitor for signs of active bleeding Chronic renal insufficiency and dehydration secondary to chronic meds for cirrhosis- SOME IMPROVEMENT Leukopenia secondary to cirrhosis Thrombocytopenia secondary to cirrhosis Elevated ammonia and hepatic encephalopathy will make sure that he is back on his rifaximin and his lactulose-- TRENDING DOWN TO 82 Coagulopathy and vitamin K deficiency will restart vitamin K AM LABS Code Status: FULL CODE Discussed Condition With: RN AND PT AND CM Discharge Planning: Pending improvement or family making different decisions
--- NOTE | 2018-06-30 16:44 | OTSOAPIP ---
TIME SESSION COMPLETED: PM TREATMENT TIME: 0 MINS. CHART REVIEWED. PATIENT WAS OFF THE FLOOR FOR A PROCEDURES.. PLAN: WILL SEE NEXT TREATMENT DAY Therapist: Calvin Ortega Signature on file
[2018-07-01 06:20] LABS: Baso % (Auto) 0.7 % (0.0-2.0); Eos # (Auto) 0.1 th/mm3 (0.0-0.4); Hematocrit 21.3 % (39.0-51.0); Hemoglobin 7.3 gm/dL (13.0-17.0); Lymph # (Auto) 0.4 th/mm3 (1.0-4.8); Lymph % (Auto) 13.6 % (9.0-44.0); Mean Corpuscular HGB Conc 34.1 % (32.0-36.0); Mean Corpuscular Hemoglobin 35.2 pg (27.0-34.0); Mean Corpuscular Volume 103.2 fL (80.0-100.0); Mean Platelet Volume 10.2 fL (7.0-11.0); Mono # (Auto) 0.4 th/mm3 (0.0-0.9); Mono % (Auto) 14.8 % (0.0-8.0); Neut # (Auto) 1.9 th/mm3 (1.8-7.7); Neut % (Auto) 65.9 % (16.0-70.0); Platelet Count 60 th/mm3 (150-450); Red Blood Count 2.06 mil/mm3 (4.50-5.90); White Blood Count 2.9 th/mm3 (4.0-11.0)
[2018-07-01 06:27] LABS: Prothrombin Time 19.9 sec (9.8-11.6)
[2018-07-01 06:49] LABS: Alanine Aminotransferase 57 U/L (12-78); Albumin 3.3 g/dL (3.4-5.0); Alkaline Phosphatase 92 U/L (45-117); Anion Gap 10 meq/L (5-15); Aspartate Aminotransferase 116 U/L (15-37); Blood Urea Nitrogen 21 mg/dL (7-18); Calcium 8.9 mg/dL (8.5-10.1); Carbon Dioxide 20.5 meq/L (21.0-32.0); Chloride 114 meq/L (98-107); Glomerular Filtration Rate 47 mL/min (>89); Glucose,Random 102 mg/dL (74-106); Magnesium 2.1 mg/dL (1.5-2.5); Phosphorus 2.3 mg/dL (2.5-4.9); Sodium 144 meq/L (136-145); Total Protein 7.5 g/dL (6.4-8.2)
[2018-07-01 08:32] LABS: Platelet Morphology Normal (Normal)
[2018-07-01] MEDS: Senna/Docusate Sodium 8.6/50 MG Tablet PO SCH ×2 (09:19→22:30)
[2018-07-01] MEDS: Propranolol 10 MG Tablet PO SCH ×2 (09:19→22:30)
[2018-07-01] MEDS: rifAXIMin 550 MG Tablet PO SCH ×2 (09:19→22:30)
[2018-07-01] MEDS: Spironolactone 50 MG Tablet PO SCH (09:19)
[2018-07-01] MEDS: Furosemide 40 MG Tablet PO SCH (09:19)
[2018-07-01] MEDS: Pantoprazole Inj 40 MG Vial IV.PUSH SCH ×2 (09:20→22:30)
[2018-07-01] MEDS: dilTIAZem 30 MG Tablet PO SCH ×3 (09:20→17:42)
[2018-07-01] MEDS: Phytonadione 5 MG/SWFI 5 ML Oral Syringe PO SCH (09:21)
[2018-07-01] MEDS: Sod Chloride 0.9% Inj 1,000 ML IV.CONT SCH ×3 (09:25→17:40)
[2018-07-01] MEDS: Cholestyramine Light 4 GM Packet PO SCH ×4 (09:31→22:31)
--- NOTE | 2018-07-01 12:54 | P.PNIM ---
Subjective Interval history: Chief Complaint: BLOOD IN STOOL History of Present Illness: Patient is a 63-year-old -[place] gentleman with a known history of hepatitis C untreated as well as prostate cancer and atrial fibrillation who is not been on any anticoagulation due to cirrhosis and esophageal varices status post banding who presents to the emergency department with bright red bleeding per rectum that started last night. His whose name is Etelvina helps with the history. The states that the patient had blood streaked stool last night. She states that the patient had multiple episodes of diarrhea and has been on lactulose for his hepatic encephalopathy. She states she stopped the lactulose and started this morning woke up with a lot of blood in the stool. Has never had a colonoscopy in at least 2 years. Recently had a EGD here and had esophageal varices that were banded at stage II. He denies any fevers or chills, denies any chest pain, denies any shortness of breath, denies any abdominal pain, denies any's states that he does not appear swollen but the abdomen does appear larger than when he tried to couple days ago. Patient recently had a paracentesis June 062017 where had a 8400 mL's of fluid removed Patient has history of liver disease and known esophageal varices and therefore cannot be on any anticoagulation at all Patient INR is greater than 2 at all times 06-30 UNDERWENT EGD TODAY WITH NO ACTIVE SIGNS OF BLEEDING DW RN AND PT AND CM 07-01 SUSPECT HEMORRHOID BLEEDING DUE TO COAGULOPATHY DUE TO LIVER DX INCREASE LACTULOSE DUE TO ELEVATED AMMONIA LEVEL AM LABS DW RN AND PT AND FAMILY Physical Exam Vital signs: Vital Signs 06/30/18 16:00 06/30/18 20:00 07/01/18 00:00 Temperature 98.0 F 99.1 F 98.2 F Pulse Rate 73 77 68 Respiratory Rate 18 18 20 Blood Pressure 130/63 139/60 129/74 Pulse Oximetry 97 99 100 07/01/18 08:00 07/01/18 09:16 Temperature 98.2 F Pulse Rate 76 66 Respiratory Rate 17 Blood Pressure 144/73 H Pulse Oximetry 99 99 Intake & Output 06/30/18 07/01/18 07/01/18 18:59 06:59 18:59 Intake Total 3020 / 3020 1280 / 1280 Balance 3020 / 3020 1280 / 1280 Intake: IV 2000 / 2000 1000 / 1000 NS Inj 1,000 ML @ 100 mls/hr IV 1000 / 1000 1000 / 1000 .CONT .Q10H SHOSHANA Rx#:[id number] LR 1000 mL Inj 1,000 ML @ 30 1000 / 1000 mls/hr IV.SIG .Q24H SHOSHANA Rx#: [id number] Oral 720 / 720 280 / 280 Anesthesia Amount 300 / 300 Other: # Voids 1 Date of Last Bowel Movement 06/30/18 06/30/18 Narrative: GENERAL: Patient is arousable but is quite lethargic at this time with an elevated ammonia level. He is not able to give a good history. SKIN: Warm and dry. HEAD: Atraumatic. Normocephalic. EYES: Pupils equal and round. No scleral icterus. No injection or drainage. ENT: No nasal bleeding or discharge. Mucous membranes pink and moist. Oral mucosa moist NECK: Trachea midline. No JVD. Supple CARDIOVASCULAR: Regular rate and rhythm. S1-S2 no S3 or S4 RESPIRATORY: No accessory muscle use. Clear to auscultation. Breath sounds equal bilaterally. GASTROINTESTINAL: Abdomen soft, non-tender, distended. Hepatic and splenic margins not palpable. Obese MUSCULOSKELETAL: Extremities without clubbing, cyanosis, +1 lower extremity edema. No obvious deformities. NEUROLOGICAL: Awake and alert. No obvious cranial nerve deficits. Motor grossly within normal limits. Five out of 5 muscle strength in the arms and legs. ABNormal speech. PSYCHIATRIC: INAppropriate mood and affect; insight and judgment ABnormal. Results - Labs CBC & Chem 7: 07/01/18 06:02 07/01/18 06:02 Laboratory Results - last 24 hr 06/30/18 07/01/18 07/01/18 13:28 06:02 06:02 WBC 2.9 L RBC 2.06 L Hgb 7.7 L 7.3 L Hct 23.1 L 21.3 L MCV 103.2 H MCH 35.2 H MCHC 34.1 RDW 20.0 H Plt Count 60 L MPV 10.2 Prelim Diff (Auto) Slide review pending Neut % (Auto) 65.9 Lymph % (Auto) 13.6 [place] % (Auto) 14.8 H Eos % (Auto) 5.0 H Baso % (Auto) 0.7 Neut # (Auto) 1.9 Lymph # (Auto) 0.4 L [place] # (Auto) 0.4 Eos # (Auto) 0.1 Baso # (Auto) 0.0 WBC Differential . Diff Scan Auto diff confirmed Differential Comment . Platelet Estimate Low L Platelet Morphology Normal PT 19.9 H INR 2.0 Sodium Potassium Chloride Carbon Dioxide Anion Gap BUN Creatinine Estimated GFR Random Glucose Calcium Phosphorus Magnesium Total Bilirubin AST ALT Alkaline Phosphatase Ammonia Total Protein Albumin 07/01/18 07/01/18 06:02 06:02 WBC RBC Hgb Hct MCV MCH MCHC RDW Plt Count MPV Prelim Diff (Auto) Neut % (Auto) Lymph % (Auto) [place] % (Auto) Eos % (Auto) Baso % (Auto) Neut # (Auto) Lymph # (Auto) [place] # (Auto) Eos # (Auto) Baso # (Auto) WBC Differential Diff Scan Differential Comment Platelet Estimate Platelet Morphology PT INR Sodium 144 Potassium 5.0 Chloride 114 H Carbon Dioxide 20.5 L Anion Gap 10 BUN 21 H Creatinine 1.78 H Estimated GFR 47 L Random Glucose 102 Calcium 8.9 Phosphorus 2.3 L Magnesium 2.1 Total Bilirubin 19.7 H AST 116 H ALT 57 Alkaline Phosphatase 92 Ammonia 84 H Total Protein 7.5 Albumin 3.3 L - Procedures Date of procedure: 06/30/18 Pre-op diagnosis: Cirrhosis, history of esophageal varices, and GI bleed Procedure: PROCEDURE PERFORMED EGD PROCEDURE: The procedure, risks and benefits were discussed with Patient/POA and informed consent was obtained. Anesthesia sedated Patient with Diprivan. Patient was placed in the left lateral decubitus position. EGD: The Pentax videoscope was introduced through the oropharynx and advanced to the second portion of the duodenum under direct visualization. Retroflexion was performed in the stomach. FINDINGS: The esophagus this appeared to be unremarkable at this point with no obvious varices but we do see to small ulcerations consistent with the recent banding and one band that still sloughing away at the distal and but no evidence of any active or recent bleeding from the esophagus The stomach the gastric mucosa had a cobblestone appearance consistent with mild hypertensive portal gastropathy no gastric varices were noted and no blood or bleeding The duodenum this was normal ESTIMATED BLOOD LOSS: None SPECIMENS REMOVED: None COMPLICATIONS: None IMPRESSION: Portal hypertensive gastropathy PLAN: Supportive care EGD in 1 year Anesthesia: MAC Surgeon: Charles Lopez Condition: stable Disposition: floor Documented By: Charles Lopez MD Assessment and Plan - Plan GI bleed - HBG IS NOW 7.7 Hepatic encephalopathy Esophageal varices Heme positive stool Hepatitis C Auto anticoagulation Coagulopathy due to hepatitis C -Consult gastroenterology -Restart all home medications including lactulose 4 times daily, Protonix drip twice daily, propranolol, Xifaxan, spironolactone -Ammonia levels in a.m. 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 to the entrepreneurship program director Patient may need another paracentesis Anemia monitor for signs of active bleeding Chronic renal insufficiency and dehydration secondary to chronic meds for cirrhosis- SOME IMPROVEMENT Leukopenia secondary to cirrhosis Thrombocytopenia secondary to cirrhosis Elevated ammonia and hepatic encephalopathy will make sure that he is back on his rifaximin and his lactulose-- TRENDING DOWN TO 82 - STILL ELEVATED WILL INCREASE Coagulopathy and vitamin K deficiency will restart vitamin K AM LABS Code Status: FULL CODE Discussed Condition With: RN AND PT AND Discharge Planning: Pending improvement or family making different decisions
--- NOTE | 2018-07-01 17:07 | P.PNGI ---
Subjective Interval history: Resting in the bed eyes closed but answers simple questions, no obvious bleeding no nausea no vomiting Physical Exam Vital signs: Vital Signs 06/30/18 20:00 07/01/18 00:00 07/01/18 08:00 Temperature 99.1 F 98.2 F 98.2 F Pulse Rate 77 68 76 Respiratory Rate 18 20 17 Blood Pressure 139/60 129/74 144/73 H Pulse Oximetry 99 100 99 07/01/18 09:16 07/01/18 12:00 Temperature 98.1 F Pulse Rate 66 68 Respiratory Rate 17 Blood Pressure 131/72 Pulse Oximetry 99 99 Intake & Output 06/30/18 07/01/18 07/01/18 18:59 06:59 18:59 Intake Total 3020 / 3020 1280 / 1280 Balance 3020 / 3020 1280 / 1280 Intake: IV 2000 / 2000 1000 / 1000 NS Inj 1,000 ML @ 100 mls/hr IV 1000 / 1000 1000 / 1000 .CONT .Q10H [facility] Rx#:[id number] LR 1000 mL Inj 1,000 ML @ 30 1000 / 1000 mls/hr IV.SIG .Q24H [facility] Rx#: [id number] Oral 720 / 720 280 / 280 Anesthesia Amount 300 / 300 Other: # Voids 1 Date of Last Bowel Movement 06/30/18 06/30/18 - Constitutional mild distress, chronically ill appearing - Routine HEENT Exam ENT: Present: mucous membranes dry - Routine Respiratory Exam Present: accessory muscle use (Even, unlabored at rest, weak) - Routine Abdominal Exam Present: soft (Round, taut, soft bowel sounds, ) Results - Labs CBC & Chem 7: 07/01/18 06:02 07/01/18 06:02 Laboratory Results - last 24 hr 07/01/18 07/01/18 07/01/18 06:02 06:02 06:02 WBC 2.9 L RBC 2.06 L Hgb 7.3 L Hct 21.3 L MCV 103.2 H MCH 35.2 H MCHC 34.1 RDW 20.0 H Plt Count 60 L MPV 10.2 Prelim Diff (Auto) Slide review pending Neut % (Auto) 65.9 Lymph % (Auto) 13.6 Glasscock % (Auto) 14.8 H Eos % (Auto) 5.0 H Baso % (Auto) 0.7 Neut # (Auto) 1.9 Lymph # (Auto) 0.4 L Glasscock # (Auto) 0.4 Eos # (Auto) 0.1 Baso # (Auto) 0.0 WBC Differential . Diff Scan Auto diff confirmed Differential Comment . Platelet Estimate Low L Platelet Morphology Normal PT 19.9 H INR 2.0 Sodium 144 Potassium 5.0 Chloride 114 H Carbon Dioxide 20.5 L Anion Gap 10 BUN 21 H Creatinine 1.78 H Estimated GFR 47 L Random Glucose 102 Calcium 8.9 Phosphorus 2.3 L Magnesium 2.1 Total Bilirubin 19.7 H AST 116 H ALT 57 Alkaline Phosphatase 92 Ammonia Total Protein 7.5 Albumin 3.3 L 07/01/18 06:02 WBC RBC Hgb Hct MCV MCH MCHC RDW Plt Count MPV Prelim Diff (Auto) Neut % (Auto) Lymph % (Auto) Glasscock % (Auto) Eos % (Auto) Baso % (Auto) Neut # (Auto) Lymph # (Auto) Glasscock # (Auto) Eos # (Auto) Baso # (Auto) WBC Differential Diff Scan Differential Comment Platelet Estimate Platelet Morphology PT INR Sodium Potassium Chloride Carbon Dioxide Anion Gap BUN Creatinine Estimated GFR Random Glucose Calcium Phosphorus Magnesium Total Bilirubin AST ALT Alkaline Phosphatase Ammonia 84 H Total Protein Albumin - Procedures Date of procedure: 06/30/18 Pre-op diagnosis: Cirrhosis, history of esophageal varices, and GI bleed Procedure: PROCEDURE PERFORMED EGD PROCEDURE: The procedure, risks and benefits were discussed with Patient/POA and informed consent was obtained. Anesthesia sedated Patient with Diprivan. Patient was placed in the left lateral decubitus position. EGD: The Pentax videoscope was introduced through the oropharynx and advanced to the second portion of the duodenum under direct visualization. Retroflexion was performed in the stomach. FINDINGS: The esophagus this appeared to be unremarkable at this point with no obvious varices but we do see to small ulcerations consistent with the recent banding and one band that still sloughing away at the distal and but no evidence of any active or recent bleeding from the esophagus The stomach the gastric mucosa had a cobblestone appearance consistent with mild hypertensive portal gastropathy no gastric varices were noted and no blood or bleeding The duodenum this was normal ESTIMATED BLOOD LOSS: None SPECIMENS REMOVED: None COMPLICATIONS: None IMPRESSION: Portal hypertensive gastropathy PLAN: Supportive care EGD in 1 year Anesthesia: MAC Surgeon: Charles Lopez Condition: stable Disposition: floor Documented By: Charles Lopez MD Assessment and Plan (1) Hyperammonemia Status: Acute Code(s): E72.20 - Disorder of urea cycle metabolism, unspecified (2) Hepatic encephalopathy Status: Acute Code(s): K72.90 - Hepatic failure, unspecified without coma (3) Liver disease, chronic, with cirrhosis Status: Chronic Code(s): K74.60 - Unspecified cirrhosis of liver; K76.9 - Liver disease, unspecified (4) Ascites of liver Status: Chronic Code(s): R18.8 - Other ascites (5) Cirrhosis Status: Chronic Code(s): K74.60 - Unspecified cirrhosis of liver - Plan 06/29/2018 Liver cirrhosis-likely related to untreated hepatitis C Patient spouse states they are working with financial services in order to obtain outpatient treatment for hepatitis C Elevated ammonia level-patient and spouse report compliance with taking lactulose and Xifaxan. Spouse reports exception of 06/28/2018 where lactulose was held due to increasing frequency of loose stools. She reports prior to that patient was having 6-7 loose stools a day with no noted bleeding. Ammonia level 108 on admission. Patient fatigued and lethargic but answering questions appropriately. Coagulopathy-INR 2.5, likely due to the above. Thrombocytopenia -platelet count 68, likely due to the above GI bleeding-hemoglobin 8.8 hematocrit 25.2, will follow labs closely and monitor for bleeding. Patient is and spouse report of bright red bleeding per rectum and deny back tarry stools or hematemesis. Elevated liver function tests- total bilirubin 18.7 AST 94 ALT 54 alk phos 89 albumin 3.4 07/01/2018 patient states he is feeling somewhat better, continues with IV fluids at 100 cc an hour, states overall abdominal pain better and no obvious bleeding Bowel movement yesterday, should be multiple times a day secondary to his lactulose. Generalized weaken, encouraged patient to be up out of bed and to increase motility is much as possible. May want to consider physical therapy/ labs reviewed current hemoglobin 7.3, mild increased bilirubin 19.7 AST 116 ALT 52 WBC count 2.9 PT/INR 2, need to monitor for any obvious bleeding. Hepatitis C with liver cirrhosis, coagulopathy currently medical management and supportive care, currently patient generalized condition serious, may want to consider palliative care in the near future. Need to reevaluate abdomen for ascites. Ammonia level 84 not trending down last check was 82. PLAN Diet cardiac, need to monitor percentage of intake, appears to have decreased appetite IV fluids continue at 100 cc an hour as long as patient is eating and drinking consider DC in fluid Ultrasound abdomen evaluate ascites Bowel regimen, BM yesterday brown stool no obvious bleeding Monitor labs Xifaxan, Lasix, Zofran, lactulose 4 times a day, spironolactone, Nadolol, Questran Supportive care EGD in 1 year Patient seen and evaluated per myself and Dr. Downing, note was written on his behalf (5) Cirrhosis Qualifiers: Hepatic cirrhosis type: alcoholic cirrhosis Ascites presence: with ascites Qualified Code(s): K70.31 - Alcoholic cirrhosis of liver with ascites
[2018-07-01 20:39] LABS: Troponin I 0.02 ng/mL (0.02-0.05)
--- NOTE | 2018-07-01 23:05 | ECG ---
Date Performed: 07/01/2018 Time Performed: 18:05:28 PTAGE: 63 years EKG: Sinus rhythm WITH OCCASIONAL SUPRAVENTRICULAR PREMATURE COMPLEXES MARKED LEFT AXIS DEVIATION LOW QRS VOLTAGE IN P RECORDIAL LEADS ABNORMAL ECG PREVIOUS TRACING : 06/17/2018 18.26 Since the previous tracing, no significant change noted DOCTOR: Casimiro Aldrich Interpretating Date/Time 07/01/2018 23:03:53
[2018-07-02] MEDS: Sod Chloride 0.9% Inj 1,000 ML IV.CONT SCH ×2 (03:41→11:11)
[2018-07-02 07:07] LABS: Eos # (Auto) 0.1 th/mm3 (0.0-0.4); Eos % (Auto) 3.6 % (0.0-4.0); Lymph # (Auto) 0.5 th/mm3 (1.0-4.8); Mean Corpuscular HGB Conc 35.4 % (32.0-36.0); Mean Corpuscular Hemoglobin 35.7 pg (27.0-34.0); Mean Corpuscular Volume 100.8 fL (80.0-100.0); Mean Platelet Volume 9.2 fL (7.0-11.0); Mono # (Auto) 0.5 th/mm3 (0.0-0.9); Mono % (Auto) 16.7 % (0.0-8.0); Neut % (Auto) 63.7 % (16.0-70.0); Platelet Count 56 th/mm3 (150-450); Red Blood Count 1.96 mil/mm3 (4.50-5.90); Red Cell Distribution Width 19.2 % (11.6-17.2); White Blood Count 3.1 th/mm3 (4.0-11.0)
[2018-07-02 07:16] LABS: INR 2.1 Ratio; Prothrombin Time 21.3 sec (9.8-11.6)
[2018-07-02 07:22] LABS: Hematocrit 19.7 % (39.0-51.0)
[2018-07-02 07:29] LABS: Alanine Aminotransferase 56 U/L (12-78); Albumin 3.2 g/dL (3.4-5.0); Alkaline Phosphatase 97 U/L (45-117); Amylase 44 U/L (25-115); Anion Gap 9 meq/L (5-15); Aspartate Aminotransferase 101 U/L (15-37); Blood Urea Nitrogen 22 mg/dL (7-18); Calcium 8.9 mg/dL (8.5-10.1); Carbon Dioxide 19.1 meq/L (21.0-32.0); Chloride 118 meq/L (98-107); Glomerular Filtration Rate 38 mL/min (>89); Glucose,Random 115 mg/dL (74-106); Magnesium 2.2 mg/dL (1.5-2.5); Phosphorus 2.2 mg/dL (2.5-4.9); Potassium 4.6 meq/L (3.5-5.1); Sodium 146 meq/L (136-145); Total Protein 7.9 g/dL (6.4-8.2)
[2018-07-02] MEDS ORDERED: Sodium Chlor 0.9% Inj 250 ML IV.SIG SCH (08:00)
[2018-07-02 08:11] LABS: Platelet Morphology Normal (Normal)
--- NOTE | 2018-07-02 09:21 | US ---
EXAM DATE: 07/02/2018 8:51 AM EDT AGE/SEX: 63 years / Male INDICATIONS: Evaluate for ascites. CLINICAL DATA: This is the patient's initial encounter. Patient reports that signs and symptoms have been present for 1 day and indicates a pain score of Nonresponsive. MEDICAL/SURGICAL HISTORY: . Cirrhosis. Esophageal varices. Hepatic encephalopathy. Hep C. P rostate cancer. . Prostate biopsy. Paracentesis. EGD. COMPAR[place]: [facility] [place] & [place]ELVIS W/O CONTRAST, 06/17/2018. . FINDINGS: Imaging of all 4 quadrants of the abdomen was performed. There is a small volume of free fluid within all quadrants of the abdomen and pelvis. CONCLUSION: Stable small volume of free fluid/ascites in the abdomen and pelvis. Electronically signed by: Андрей Nicholson MD 07/02/2018 9:19 AM EDT
[2018-07-02] MEDS: Cholestyramine Light 4 GM Packet PO SCH ×4 (09:24→21:28)
[2018-07-02] MEDS: Phytonadione 5 MG/SWFI 5 ML Oral Syringe PO SCH (09:26)
[2018-07-02] MEDS: Propranolol 10 MG Tablet PO SCH ×2 (09:27→21:27)
[2018-07-02] MEDS: rifAXIMin 550 MG Tablet PO SCH ×2 (09:27→21:28)
[2018-07-02] MEDS: Furosemide 40 MG Tablet PO SCH (09:28)
[2018-07-02] MEDS: Pantoprazole Inj 40 MG Vial IV.PUSH SCH ×2 (09:28→21:28)
[2018-07-02] MEDS: dilTIAZem 30 MG Tablet PO SCH ×3 (09:28→18:00)
[2018-07-02] MEDS: Spironolactone 50 MG Tablet PO SCH (09:28)
[2018-07-02] MEDS: Senna/Docusate Sodium 8.6/50 MG Tablet PO SCH ×2 (09:30→21:28)
[2018-07-02] MEDS: Acetaminophen 325 MG Tablet PO PRN ×2 (10:25→14:46)
--- NOTE | 2018-07-02 14:06 | P.PNIM ---
Subjective Interval history: Chief Complaint: BLOOD IN STOOL History of Present Illness: Patient is a 63-year-old -[place] gentleman with a known history of hepatitis C untreated as well as prostate cancer and atrial fibrillation who is not been on any anticoagulation due to cirrhosis and esophageal varices status post banding who presents to the emergency department with bright red bleeding per rectum that started last night. His whose name is Etelvina helps with the history. The states that the patient had blood streaked stool last night. She states that the patient had multiple episodes of diarrhea and has been on lactulose for his hepatic encephalopathy. She states she stopped the lactulose and started this morning woke up with a lot of blood in the stool. Has never had a colonoscopy in at least 2 years. Recently had a EGD here and had esophageal varices that were banded at stage II. He denies any fevers or chills, denies any chest pain, denies any shortness of breath, denies any abdominal pain, denies any's states that he does not appear swollen but the abdomen does appear larger than when he tried to couple days ago. Patient recently had a paracentesis June [id number] where had a 8400 mL's of fluid removed Patient has history of liver disease and known esophageal varices and therefore cannot be on any anticoagulation at all Patient INR is greater than 2 at all times 06-30 UNDERWENT EGD TODAY WITH NO ACTIVE SIGNS OF BLEEDING DW RN AND PT AND CM 07-01 SUSPECT HEMORRHOID BLEEDING DUE TO COAGULOPATHY DUE TO LIVER DX INCREASE LACTULOSE DUE TO ELEVATED AMMONIA LEVEL AM LABS DW RN AND PT AND FAMILY 07-02 ANEMIA WILL TRANSFUSE 3 UNITS PRBC AMMONIA LEVEL IMPROVED ON MORE LACTULOSE -NOT TOO COMPLIANT WITH MEDICATIONS AT HOME AM LABS INCREASE ACTIVITY DW RN AND PT AND CM AND GI HEPLOCK IV Physical Exam Vital signs: Vital Signs 07/01/18 16:00 07/01/18 18:28 07/01/18 20:00 Temperature 98.4 F 98.4 F Pulse Rate 70 72 Respiratory Rate 19 18 Blood Pressure 125/87 138/67 Pulse Oximetry 100 99 98 07/01/18 20:30 07/02/18 00:00 07/02/18 00:30 Temperature 98.6 F Pulse Rate 89 71 73 Respiratory Rate 18 Blood Pressure 127/76 Pulse Oximetry 98 07/02/18 03:05 07/02/18 04:00 07/02/18 08:00 Temperature 98.3 F 97.7 F Pulse Rate 76 81 Respiratory Rate 18 18 18 Blood Pressure 141/67 H 135/61 Pulse Oximetry 99 98 07/02/18 09:20 07/02/18 10:38 07/02/18 10:59 Temperature 98.7 F 98.0 F Pulse Rate 94 H 74 Respiratory Rate 16 16 Blood Pressure 126/63 118/64 Pulse Oximetry 98 98 99 07/02/18 13:09 07/02/18 13:25 Temperature 98.4 F 98.0 F Pulse Rate 97 H 71 Respiratory Rate 17 17 Blood Pressure 132/68 132/80 Pulse Oximetry 98 99 Intake & Output 07/01/18 07/02/18 07/02/18 18:59 06:59 18:59 Intake Total 1056 / 1056 1120 / 1120 1190 / 1190 Balance 1056 / 1056 1120 / 1120 1190 / 1190 Weight 124.1 kg Intake: IV 820 / 820 1000 / 1000 770 / 770 NS Inj 1,000 ML @ 100 mls/hr IV 820 / 820 1000 / 1000 770 / 770 .CONT .Q10H [facility] Rx#:[id number] Oral 236 / 236 120 / 120 Other 20 / 20 Rbc As-3 Leukoreduced Unit 20 / 20 [id number] Intake (Blood Product) Amt 400 / 400 Rbc As-3 Leukoreduced Unit 400 / 400 [id number] Rbc As-3 Leukoreduced Unit 0 / 0 [id number] Other: Other Intake Source Rbc As-3 Leukoreduced Unit Saline Solution [id number] # Voids 2 2 Date of Last Bowel Movement 07/01/18 07/01/18 07/02/18 # Bowel Movements 2 3 Narrative: GENERAL: Patient is arousable but is quite lethargic at this time with an elevated ammonia level. He is not able to give a good history. SKIN: Warm and dry. HEAD: Atraumatic. Normocephalic. EYES: Pupils equal and round. No scleral icterus. No injection or drainage. ENT: No nasal bleeding or discharge. Mucous membranes pink and moist. Oral mucosa moist NECK: Trachea midline. No JVD. Supple CARDIOVASCULAR: Regular rate and rhythm. S1-S2 no S3 or S4 RESPIRATORY: No accessory muscle use. Clear to auscultation. Breath sounds equal bilaterally. GASTROINTESTINAL: Abdomen soft, non-tender, distended. Hepatic and splenic margins not palpable. Obese MUSCULOSKELETAL: Extremities without clubbing, cyanosis, +1 lower extremity edema. No obvious deformities. NEUROLOGICAL: Awake and alert. No obvious cranial nerve deficits. Motor grossly within normal limits. Five out of 5 muscle strength in the arms and legs. ABNormal speech. PSYCHIATRIC: INAppropriate mood and affect; insight and judgment ABnormal. Results - Labs CBC & Chem 7: 07/02/18 06:17 07/02/18 06:17 Laboratory Results - last 24 hr 07/01/18 07/02/18 07/02/18 19:36 06:17 06:17 WBC 3.1 L RBC 1.96 L Hgb 7.0 L Hct 19.7 L* MCV 100.8 H MCH 35.7 H MCHC 35.4 RDW 19.2 H Plt Count 56 L MPV 9.2 Prelim Diff (Auto) Slide review pending Neut % (Auto) 63.7 Lymph % (Auto) 15.0 Craig % (Auto) 16.7 H Eos % (Auto) 3.6 Baso % (Auto) 1.0 Neut # (Auto) 2.0 Lymph # (Auto) 0.5 L Craig # (Auto) 0.5 Eos # (Auto) 0.1 Baso # (Auto) 0.0 WBC Differential . Diff Scan Auto diff confirmed Differential Comment . Platelet Estimate Low L Platelet Morphology Normal PT 21.3 H INR 2.1 Sodium Potassium Chloride Carbon Dioxide Anion Gap BUN Creatinine Estimated GFR Random Glucose Calcium Phosphorus Magnesium Total Bilirubin AST ALT Alkaline Phosphatase Ammonia Total Creatine Kinase 70 Troponin I 0.02 Total Protein Albumin Amylase Blood Type Antibody Screen MTS Gel Crossmatch 07/02/18 07/02/18 07/02/18 06:17 06:17 08:52 WBC RBC Hgb Hct MCV MCH MCHC RDW Plt Count MPV Prelim Diff (Auto) Neut % (Auto) Lymph % (Auto) Craig % (Auto) Eos % (Auto) Baso % (Auto) Neut # (Auto) Lymph # (Auto) Craig # (Auto) Eos # (Auto) Baso # (Auto) WBC Differential Diff Scan Differential Comment Platelet Estimate Platelet Morphology PT INR Sodium 146 H Potassium 4.6 Chloride 118 H Carbon Dioxide 19.1 L Anion Gap 9 BUN 22 H Creatinine 2.13 H Estimated GFR 38 L Random Glucose 115 H Calcium 8.9 Phosphorus 2.2 L Magnesium 2.2 Total Bilirubin 20.4 H AST 101 H ALT 56 Alkaline Phosphatase 97 Ammonia 51 H Total Creatine Kinase Troponin I Total Protein 7.9 Albumin 3.2 L Amylase 44 Blood Type O Positive Antibody Screen Negative MTS Gel Crossmatch See Detail - Imaging Impressions Abdomen Ultrasound 07/02/18 00:00 CONCLUSION: Stable small volume of free fluid/ascites in the abdomen and pelvis. - Procedures Date of procedure: 06/30/18 Pre-op diagnosis: Cirrhosis, history of esophageal varices, and GI bleed Procedure: PROCEDURE PERFORMED EGD PROCEDURE: The procedure, risks and benefits were discussed with Patient/POA and informed consent was obtained. Anesthesia sedated Patient with Diprivan. Patient was placed in the left lateral decubitus position. EGD: The Pentax videoscope was introduced through the oropharynx and advanced to the second portion of the duodenum under direct visualization. Retroflexion was performed in the stomach. FINDINGS: The esophagus this appeared to be unremarkable at this point with no obvious varices but we do see to small ulcerations consistent with the recent banding and one band that still sloughing away at the distal and but no evidence of any active or recent bleeding from the esophagus The stomach the gastric mucosa had a cobblestone appearance consistent with mild hypertensive portal gastropathy no gastric varices were noted and no blood or bleeding The duodenum this was normal ESTIMATED BLOOD LOSS: None SPECIMENS REMOVED: None COMPLICATIONS: None IMPRESSION: Portal hypertensive gastropathy PLAN: Supportive care EGD in 1 year Anesthesia: MAC Surgeon: Charles Lopez Condition: stable Disposition: floor Documented By: Charles Lopez MD Assessment and Plan - Plan GI bleed - HBG IS NOW 7.7 Hepatic encephalopathy Esophageal varices Heme positive stool Hepatitis C Auto anticoagulation Coagulopathy due to hepatitis C -Consult gastroenterology -Restart all home medications including lactulose 4 times daily, Protonix drip twice daily, propranolol, Xifaxan, spironolactone -Ammonia levels in a.m. 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 Patient may need another paracentesis Anemia monitor for signs of active bleeding HGB IS 7.0 WILL TRANSFUSE 3 UNITS PRBCS 10- Chronic renal insufficiency and dehydration secondary to chronic meds for cirrhosis- SOME IMPROVEMENT Leukopenia secondary to cirrhosis Thrombocytopenia secondary to cirrhosis Elevated ammonia and hepatic encephalopathy will make sure that he is back on his rifaximin and his lactulose-- TRENDING DOWN TO 82 - STILL ELEVATED WILL INCREASE Coagulopathy and vitamin K deficiency will restart vitamin K AM LABS Code Status: FULL CODE Discussed Condition With: RN AND PT AND GI AND CM Discharge Planning: Pending improvement or family making different decisions
--- NOTE | 2018-07-02 15:09 | P.PNGI ---
Subjective Interval history: Appears weakened and tired, drowsy but does arouse to verbal stimuli hemoglobin 7., transfusion pending Physical Exam Vital signs: Vital Signs 07/01/18 16:00 07/01/18 18:28 07/01/18 20:00 Temperature 98.4 F 98.4 F Pulse Rate 70 72 Respiratory Rate 19 18 Blood Pressure 125/87 138/67 Pulse Oximetry 100 99 98 07/01/18 20:30 07/02/18 00:00 07/02/18 00:30 Temperature 98.6 F Pulse Rate 89 71 73 Respiratory Rate 18 Blood Pressure 127/76 Pulse Oximetry 98 07/02/18 03:05 07/02/18 04:00 07/02/18 08:00 Temperature 98.3 F 97.7 F Pulse Rate 76 81 Respiratory Rate 18 18 18 Blood Pressure 141/67 H 135/61 Pulse Oximetry 99 98 07/02/18 09:20 07/02/18 10:38 07/02/18 10:59 Temperature 98.7 F 98.0 F Pulse Rate 94 H 74 Respiratory Rate 16 16 Blood Pressure 126/63 118/64 Pulse Oximetry 98 98 99 07/02/18 12:00 07/02/18 13:09 07/02/18 13:25 Temperature 97.7 F 98.4 F 98.0 F Pulse Rate 84 97 H 71 Respiratory Rate 18 17 17 Blood Pressure 123/63 132/68 132/80 Pulse Oximetry 100 98 99 Intake & Output 07/01/18 07/02/18 07/02/18 18:59 06:59 18:59 Intake Total 1056 / 1056 1120 / 1120 1190 / 1190 Balance 1056 / 1056 1120 / 1120 1190 / 1190 Weight 124.1 kg Intake: IV 820 / 820 1000 / 1000 770 / 770 NS Inj 1,000 ML @ 100 mls/hr IV 820 / 820 1000 / 1000 770 / 770 .CONT .Q10H [facility] Rx#:[id number] Oral 236 / 236 120 / 120 Other 20 / 20 Rbc As-3 Leukoreduced Unit [id number] Intake (Blood Product) Amt 400 / 400 Rbc As-3 Leukoreduced Unit 400 / 400 [id number] Rbc As-3 Leukoreduced Unit 0 / 0 [id number] Other: Other Intake Source Rbc As-3 Leukoreduced Unit Saline Solution [id number] # Voids 2 2 Date of Last Bowel Movement 07/01/18 07/01/18 07/02/18 # Bowel Movements 2 3 - Constitutional mild distress, obese, cachectic, disheveled - Routine HEENT Exam Head: Present: normocephalic (Pale mucous membranes) - Routine Respiratory Exam Present: accessory muscle use, decreased breath sounds (Low volumes) - Routine Abdominal Exam Present: soft (Round, soft bowel sounds, stable small volume of ascites, no obvious fluid wave) - Routine Skin Exam Present: pallor Results - Labs CBC & Chem 7: 07/02/18 06:17 07/02/18 06:17 Laboratory Results - last 24 hr 07/01/18 07/02/18 07/02/18 19:36 06:17 06:17 WBC 3.1 L RBC 1.96 L Hgb 7.0 L Hct 19.7 L* MCV 100.8 H MCH 35.7 H MCHC 35.4 RDW 19.2 H Plt Count 56 L MPV 9.2 Prelim Diff (Auto) Slide review pending Neut % (Auto) 63.7 Lymph % (Auto) 15.0 [place] % (Auto) 16.7 H Eos % (Auto) 3.6 Baso % (Auto) 1.0 Neut # (Auto) 2.0 Lymph # (Auto) 0.5 L [place] # (Auto) 0.5 Eos # (Auto) 0.1 Baso # (Auto) 0.0 WBC Differential . Diff Scan Auto diff confirmed Differential Comment . Platelet Estimate Low L Platelet Morphology Normal PT 21.3 H INR 2.1 Sodium Potassium Chloride Carbon Dioxide Anion Gap BUN Creatinine Estimated GFR Random Glucose Calcium Phosphorus Magnesium Total Bilirubin AST ALT Alkaline Phosphatase Ammonia Total Creatine Kinase 70 Troponin I 0.02 Total Protein Albumin Amylase Blood Type Antibody Screen MTS Gel Crossmatch 07/02/18 07/02/18 07/02/18 06:17 06:17 08:52 WBC RBC Hgb Hct MCV MCH MCHC RDW Plt Count MPV Prelim Diff (Auto) Neut % (Auto) Lymph % (Auto) [place] % (Auto) Eos % (Auto) Baso % (Auto) Neut # (Auto) Lymph # (Auto) [place] # (Auto) Eos # (Auto) Baso # (Auto) WBC Differential Diff Scan Differential Comment Platelet Estimate Platelet Morphology PT INR Sodium 146 H Potassium 4.6 Chloride 118 H Carbon Dioxide 19.1 L Anion Gap 9 BUN 22 H Creatinine 2.13 H Estimated GFR 38 L Random Glucose 115 H Calcium 8.9 Phosphorus 2.2 L Magnesium 2.2 Total Bilirubin 20.4 H AST 101 H ALT 56 Alkaline Phosphatase 97 Ammonia 51 H Total Creatine Kinase Troponin I Total Protein 7.9 Albumin 3.2 L Amylase 44 Blood Type O Positive Antibody Screen Negative MTS Gel Crossmatch See Detail - Imaging Impressions Abdomen Ultrasound 07/02/18 00:00 CONCLUSION: Stable small volume of free fluid/ascites in the abdomen and pelvis. - Procedures Date of procedure: 06/30/18 Pre-op diagnosis: Cirrhosis, history of esophageal varices, and GI bleed Procedure: PROCEDURE PERFORMED EGD PROCEDURE: The procedure, risks and benefits were discussed with Patient/POA and informed consent was obtained. Anesthesia sedated Patient with Diprivan. Patient was placed in the left lateral decubitus position. EGD: The Pentax videoscope was introduced through the oropharynx and advanced to the second portion of the duodenum under direct visualization. Retroflexion was performed in the stomach. FINDINGS: The esophagus this appeared to be unremarkable at this point with no obvious varices but we do see to small ulcerations consistent with the recent banding and one band that still sloughing away at the distal and but no evidence of any active or recent bleeding from the esophagus The stomach the gastric mucosa had a cobblestone appearance consistent with mild hypertensive portal gastropathy no gastric varices were noted and no blood or bleeding The duodenum this was normal ESTIMATED BLOOD LOSS: None SPECIMENS REMOVED: None COMPLICATIONS: None IMPRESSION: Portal hypertensive gastropathy PLAN: Supportive care EGD in 1 year Anesthesia: MAC Surgeon: Charles Lopez Condition: stable Disposition: floor Documented By: Charles Lopez MD Assessment and Plan (1) Hyperammonemia Status: Acute Code(s): E72.20 - Disorder of urea cycle metabolism, unspecified (2) Hepatic encephalopathy Status: Acute Code(s): K72.90 - Hepatic failure, unspecified without coma (3) Liver disease, chronic, with cirrhosis Status: Chronic Code(s): K74.60 - Unspecified cirrhosis of liver; K76.9 - Liver disease, unspecified (4) Ascites of liver Status: Chronic Code(s): R18.8 - Other ascites (5) Cirrhosis Status: Chronic Code(s): K74.60 - Unspecified cirrhosis of liver - Plan 06/29/2018 Liver cirrhosis-likely related to untreated hepatitis C Patient spouse states they are working with financial services in order to obtain outpatient treatment for hepatitis C Elevated ammonia level-patient and spouse report compliance with taking lactulose and Xifaxan. Spouse reports exception of 06/28/2018 where lactulose was held due to increasing frequency of loose stools. She reports prior to that patient was having 6-7 loose stools a day with no noted bleeding. Ammonia level 108 on admission. Patient fatigued and lethargic but answering questions appropriately. Coagulopathy-INR 2.5, likely due to the above. Thrombocytopenia -platelet count 68, likely due to the above GI bleeding-hemoglobin 8.8 hematocrit 25.2, will follow labs closely and monitor for bleeding. Patient is and spouse report of bright red bleeding per rectum and deny back tarry stools or hematemesis. Elevated liver function tests- total bilirubin 18.7 AST 94 ALT 54 alk phos 89 albumin 3.4 07/01/2018 patient states he is feeling somewhat better, continues with IV fluids at 100 cc an hour, states overall abdominal pain better and no obvious bleeding Bowel movement yesterday, should be multiple times a day secondary to his lactulose. Generalized weaken, encouraged patient to be up out of bed and to increase motility is much as possible. May want to consider physical therapy/ labs reviewed current hemoglobin 7.3, mild increased bilirubin 19.7 AST 116 ALT 52 WBC count 2.9 PT/INR 2, need to monitor for any obvious bleeding. Hepatitis C with liver cirrhosis, coagulopathy currently medical management and supportive care, currently patient generalized condition serious, may want to consider palliative care in the near future. Need to reevaluate abdomen for ascites. Ammonia level 84 not trending down last check was 82. 07/02/2018 patient continues to be weak and fatigued with hemoglobin 7 transfusion is pending continues with hyperbilirubinemia mild increase 20.4, mild decrease and LFTs/transaminases AST 101 ALT 56, ammonia level 51 mild decrease. Responding to medical management but continues with end-stage liver cirrhosis, medical management, full code full aggressive care per family member. Patient is getting up out of bed and going to the bathroom with minimal assistance PLAN Diet cardiac, hydration encouraged IV hydration continues but consider cut back on volume No paracentesis needed for now Bowel regimen, BM yesterday brown stool no obvious bleeding Monitor labs, transfusion today Xifaxan, Lasix, Zofran, lactulose 4 times a day, spironolactone, Nadolol, Questran Supportive care EGD in 1 year Patient seen and evaluated per myself and Dr. Bah, note was written on his behalf (5) Cirrhosis Qualifiers: Hepatic cirrhosis type: alcoholic cirrhosis Ascites presence: with ascites Qualified Code(s): K70.31 - Alcoholic cirrhosis of liver with ascites
[2018-07-02 22:48] LABS: Hematocrit 29.7 % (39.0-51.0); Hemoglobin 9.9 gm/dL (13.0-17.0)
[2018-07-03] MEDS: Phytonadione 5 MG/SWFI 5 ML Oral Syringe PO SCH (08:53)
[2018-07-03] MEDS: Cholestyramine Light 4 GM Packet PO SCH ×4 (08:53→21:56)
[2018-07-03] MEDS: dilTIAZem 30 MG Tablet PO SCH ×3 (08:55→17:45)
[2018-07-03] MEDS: Spironolactone 50 MG Tablet PO SCH (08:55)
[2018-07-03] MEDS: Furosemide 40 MG Tablet PO SCH (08:55)
[2018-07-03] MEDS: rifAXIMin 550 MG Tablet PO SCH ×2 (08:55→21:56)
[2018-07-03] MEDS: Senna/Docusate Sodium 8.6/50 MG Tablet PO SCH ×2 (08:56→22:29)
[2018-07-03] MEDS: Pantoprazole Inj 40 MG Vial IV.PUSH SCH ×2 (08:56→21:56)
[2018-07-03] MEDS: Propranolol 10 MG Tablet PO SCH ×2 (08:57→21:56)
[2018-07-03 09:15] LABS: Baso % (Auto) 0.7 % (0.0-2.0); Eos # (Auto) 0.1 th/mm3 (0.0-0.4); Eos % (Auto) 1.8 % (0.0-4.0); Hematocrit 29.2 % (39.0-51.0); Hemoglobin 9.9 gm/dL (13.0-17.0); Lymph # (Auto) 0.5 th/mm3 (1.0-4.8); Lymph % (Auto) 10.3 % (9.0-44.0); Mean Corpuscular Hemoglobin 33.8 pg (27.0-34.0); Mean Corpuscular Volume 99.2 fL (80.0-100.0); Mean Platelet Volume 9.4 fL (7.0-11.0); Mono # (Auto) 0.6 th/mm3 (0.0-0.9); Mono % (Auto) 13.2 % (0.0-8.0); Neut # (Auto) 3.4 th/mm3 (1.8-7.7); Platelet Count 61 th/mm3 (150-450); Red Blood Count 2.95 mil/mm3 (4.50-5.90); Red Cell Distribution Width 20.5 % (11.6-17.2); White Blood Count 4.6 th/mm3 (4.0-11.0)
[2018-07-03 09:47] LABS: Acanthocytes Occ; Burr Cells 1+
[2018-07-03 09:51] LABS: INR 2.2 Ratio; Prothrombin Time 22.1 sec (9.8-11.6)
[2018-07-03 10:31] LABS: Alanine Aminotransferase 59 U/L (12-78); Albumin 3.1 g/dL (3.4-5.0); Alkaline Phosphatase 104 U/L (45-117); Anion Gap 8 meq/L (5-15); Aspartate Aminotransferase 97 U/L (15-37); Blood Urea Nitrogen 22 mg/dL (7-18); Calcium 9.2 mg/dL (8.5-10.1); Carbon Dioxide 17.1 meq/L (21.0-32.0); Chloride 121 meq/L (98-107); Glomerular Filtration Rate 34 mL/min (>89); Glucose,Random 116 mg/dL (74-106); Magnesium 2.3 mg/dL (1.5-2.5); Phosphorus 2.7 mg/dL (2.5-4.9); Potassium 5.2 meq/L (3.5-5.1); Sodium 146 meq/L (136-145); Total Protein 7.7 g/dL (6.4-8.2)
--- NOTE | 2018-07-03 12:51 | P.PNGI ---
Subjective Interval history: Patient awake and alert sitting up in bed eating lunch meal. Denies any noted bleeding, stools loose, patient on lactulose. <Gena Rausch - Last Filed: 07/03/18 12:44> Interval history: Patient was seen and examined, agree with above note and plan, patient is more awake, started having more bowel movements, at bed side. we will continue current care. home soon. <Wali Downing - Last Filed: 07/03/18 17:59> Physical Exam Vital signs: Vital Signs 07/02/18 13:09 07/02/18 13:25 07/02/18 16:00 Temperature 98.4 F 98.0 F 98.1 F Pulse Rate 97 H 71 68 Respiratory Rate 17 17 17 Blood Pressure 132/68 132/80 124/73 Pulse Oximetry 98 99 98 07/02/18 16:10 07/02/18 16:25 07/02/18 20:00 Temperature 98.5 F 98.4 F 98.3 F Pulse Rate 71 67 107 H Respiratory Rate 16 16 20 Blood Pressure 124/79 136/70 163/91 H Pulse Oximetry 100 95 07/03/18 00:00 07/03/18 04:00 07/03/18 08:00 Temperature 97.9 F 98.8 F 98.4 F Pulse Rate 82 65 69 Respiratory Rate 21 18 18 Blood Pressure 109/56 L 168/78 H 134/82 Pulse Oximetry 94 L 99 100 Intake & Output 07/02/18 07/03/18 07/03/18 18:59 06:59 18:59 Intake Total 2690 / 2690 730 / 730 Output Total 800 / 800 Balance 2690 / 2690 -70 / -70 Weight 124 kg Intake: IV 770 / 770 250 / 250 NS Inj 1,000 ML @ 100 mls/hr IV 770 / 770 .CONT .Q10H [facility] Rx#:[id number] NS Inj 250 ML @ 15 mls/hr IV. 250 / 250 SIG ONCE [facility] Rx#:[id number] Oral 650 / 650 480 / 480 Other 70 / 70 Rbc As-3 Leukoreduced Unit 20 / 20 [id number] Rbc As-3 Leukoreduced Unit 50 / 50 [id number] Intake (Blood Product) Amt 1200 / 1200 Rbc As-3 Leukoreduced Unit 400 / 400 [id number] Rbc As-3 Leukoreduced Unit 400 / 400 [id number] Rbc As-3 Leukoreduced Unit 400 / 400 [id number] Output: Urine 800 / 800 Other: Other Intake Source Rbc As-3 Leukoreduced Unit Saline Solution [id number] Rbc As-3 Leukoreduced Unit Saline Solution [id number] # Voids 5 Date of Last Bowel Movement 07/02/18 07/02/18 # Bowel Movements 0 3 - Constitutional no acute distress - Routine HEENT Exam Head: Present: normocephalic Eye: Present: conjunctival icterus - Routine Respiratory Exam Present: CTA bilaterally. Absent: accessory muscle use - Routine Abdominal Exam Present: normoactive bowel sounds, distended. Absent: guarding, firm - Routine Extremities Exam Present: pulses intact. Absent: edema - Routine Skin Exam Present: dry, warm <Rausch,Gena - Last Filed: 07/03/18 12:44> Vital signs: Vital Signs 07/02/18 20:00 07/03/18 00:00 07/03/18 04:00 Temperature 98.3 F 97.9 F 98.8 F Pulse Rate 107 H 82 65 Respiratory Rate 20 21 18 Blood Pressure 163/91 H 109/56 L 168/78 H Pulse Oximetry 95 94 L 99 07/03/18 08:00 07/03/18 12:00 07/03/18 14:07 Temperature 98.4 F 98.5 F Pulse Rate 69 80 Respiratory Rate 18 18 Blood Pressure 134/82 125/65 Pulse Oximetry 100 99 96 07/03/18 16:00 Temperature 98.5 F Pulse Rate 78 Respiratory Rate 18 Blood Pressure 139/89 Pulse Oximetry 100 Intake & Output 07/02/18 07/03/18 07/03/18 18:59 06:59 18:59 Intake Total 2690 / 2690 730 / 730 Output Total 800 / 800 Balance 2690 / 2690 -70 / -70 Weight 124 kg Intake: IV 770 / 770 250 / 250 NS Inj 1,000 ML @ 100 mls/hr IV 770 / 770 .CONT .Q10H [facility] Rx#:[id number] NS Inj 250 ML @ 15 mls/hr IV. 250 / 250 SIG ONCE [facility] Rx#:[id number] Oral 650 / 650 480 / 480 Other 70 / 70 Rbc As-3 Leukoreduced Unit 20 / 20 [id number] Rbc As-3 Leukoreduced Unit 50 / 50 [id number] Intake (Blood Product) Amt 1200 / 1200 Rbc As-3 Leukoreduced Unit 400 / 400 [id number] Rbc As-3 Leukoreduced Unit 400 / 400 [id number] Rbc As-3 Leukoreduced Unit 400 / 400 [id number] Output: Urine 800 / 800 Other: Other Intake Source Rbc As-3 Leukoreduced Unit Saline Solution [id number] Rbc As-3 Leukoreduced Unit Saline Solution [id number] # Voids 5 Date of Last Bowel Movement 07/02/18 07/02/18 # Bowel Movements 0 3 <AbellennieWali - Last Filed: 07/03/18 17:59> Results - Labs CBC & Chem 7: 07/03/18 08:49 07/03/18 08:49 Laboratory Results - last 24 hr 07/02/18 07/02/18 07/03/18 08:52 22:22 08:49 WBC 4.6 RBC 2.95 L Hgb 9.9 L D 9.9 L Hct 29.7 L 29.2 L MCV 99.2 MCH 33.8 MCHC 34.0 RDW 20.5 H Plt Count 61 L MPV 9.4 Prelim Diff (Auto) Slide review pending Neut % (Auto) 74.0 H Lymph % (Auto) 10.3 [place] % (Auto) 13.2 H Eos % (Auto) 1.8 Baso % (Auto) 0.7 Neut # (Auto) 3.4 Lymph # (Auto) 0.5 L [place] # (Auto) 0.6 Eos # (Auto) 0.1 Baso # (Auto) 0.0 WBC Differential . Diff Scan Auto diff confirmed Differential Comment . Platelet Estimate Low L Platelet Morphology Enlarged H [place] Cells 1+ H Acanthocytes (Spur) Occ H Keratocytes Occ H PT INR Sodium Potassium Chloride Carbon Dioxide Anion Gap BUN Creatinine Estimated GFR Random Glucose Calcium Phosphorus Magnesium Total Bilirubin AST ALT Alkaline Phosphatase Ammonia Total Protein Albumin Blood Type O Positive Antibody Screen Negative MTS Gel Crossmatch See Detail 07/03/18 07/03/18 07/03/18 08:49 08:49 08:49 WBC RBC Hgb Hct MCV MCH MCHC RDW Plt Count MPV Prelim Diff (Auto) Neut % (Auto) Lymph % (Auto) [place] % (Auto) Eos % (Auto) Baso % (Auto) Neut # (Auto) Lymph # (Auto) [place] # (Auto) Eos # (Auto) Baso # (Auto) WBC Differential Diff Scan Differential Comment Platelet Estimate Platelet Morphology Martir Cells Acanthocytes (Spur) Keratocytes PT 22.1 H INR 2.2 Sodium 146 H Potassium 5.2 H Chloride 121 H Carbon Dioxide 17.1 L Anion Gap 8 BUN 22 H Creatinine 2.35 H Estimated GFR 34 L Random Glucose 116 H Calcium 9.2 Phosphorus 2.7 Magnesium 2.3 Total Bilirubin 23.9 H AST 97 H ALT 59 Alkaline Phosphatase 104 Ammonia 47 H Total Protein 7.7 Albumin 3.1 L Blood Type Antibody Screen MTS Gel Crossmatch - Procedures Date of procedure: 06/30/18 Pre-op diagnosis: Cirrhosis, history of esophageal varices, and GI bleed Procedure: PROCEDURE PERFORMED EGD PROCEDURE: The procedure, risks and benefits were discussed with Patient/POA and informed consent was obtained. Anesthesia sedated Patient with Diprivan. Patient was placed in the left lateral decubitus position. EGD: The Pentax videoscope was introduced through the oropharynx and advanced to the second portion of the duodenum under direct visualization. Retroflexion was performed in the stomach. FINDINGS: The esophagus this appeared to be unremarkable at this point with no obvious varices but we do see to small ulcerations consistent with the recent banding and one band that still sloughing away at the distal and but no evidence of any active or recent bleeding from the esophagus The stomach the gastric mucosa had a cobblestone appearance consistent with mild hypertensive portal gastropathy no gastric varices were noted and no blood or bleeding The duodenum this was normal ESTIMATED BLOOD LOSS: None SPECIMENS REMOVED: None COMPLICATIONS: None IMPRESSION: Portal hypertensive gastropathy PLAN: Supportive care EGD in 1 year Anesthesia: MAC Surgeon: Charles Lopez Condition: stable Disposition: floor Documented By: Charles Lopez MD <Gena Rausch - Last Filed: 07/03/18 12:44> - Labs CBC & Chem 7: 07/03/18 08:49 07/03/18 08:49 Laboratory Results - last 24 hr 07/02/18 07/02/18 07/03/18 08:52 22:22 08:49 WBC 4.6 RBC 2.95 L Hgb 9.9 L D 9.9 L Hct 29.7 L 29.2 L MCV 99.2 MCH 33.8 MCHC 34.0 RDW 20.5 H Plt Count 61 L MPV 9.4 Prelim Diff (Auto) Slide review pending Neut % (Auto) 74.0 H Lymph % (Auto) 10.3 [place] % (Auto) 13.2 H Eos % (Auto) 1.8 Baso % (Auto) 0.7 Neut # (Auto) 3.4 Lymph # (Auto) 0.5 L [place] # (Auto) 0.6 Eos # (Auto) 0.1 Baso # (Auto) 0.0 WBC Differential . Diff Scan Auto diff confirmed Differential Comment . Platelet Estimate Low L Platelet Morphology Enlarged H [place] Cells 1+ H Acanthocytes (Spur) Occ H Keratocytes Occ H PT INR Sodium Potassium Chloride Carbon Dioxide Anion Gap BUN Creatinine Estimated GFR Random Glucose Calcium Phosphorus Magnesium Total Bilirubin AST ALT Alkaline Phosphatase Ammonia Total Protein Albumin MTS Gel Crossmatch See Detail 07/03/18 07/03/18 07/03/18 08:49 08:49 08:49 WBC RBC Hgb Hct MCV MCH MCHC RDW Plt Count MPV Prelim Diff (Auto) Neut % (Auto) Lymph % (Auto) [place] % (Auto) Eos % (Auto) Baso % (Auto) Neut # (Auto) Lymph # (Auto) [place] # (Auto) Eos # (Auto) Baso # (Auto) WBC Differential Diff Scan Differential Comment Platelet Estimate Platelet Morphology Martir Cells Acanthocytes (Spur) Keratocytes PT 22.1 H INR 2.2 Sodium 146 H Potassium 5.2 H Chloride 121 H Carbon Dioxide 17.1 L Anion Gap 8 BUN 22 H Creatinine 2.35 H Estimated GFR 34 L Random Glucose 116 H Calcium 9.2 Phosphorus 2.7 Magnesium 2.3 Total Bilirubin 23.9 H AST 97 H ALT 59 Alkaline Phosphatase 104 Ammonia 47 H Total Protein 7.7 Albumin 3.1 L MTS Gel Crossmatch <Wali Downing - Last Filed: 07/03/18 17:59> Assessment and Plan (1) Hyperammonemia Status: Acute Code(s): E72.20 - Disorder of urea cycle metabolism, unspecified (2) Hepatic encephalopathy Status: Acute Code(s): K72.90 - Hepatic failure, unspecified without coma (3) Liver disease, chronic, with cirrhosis Status: Chronic Code(s): K74.60 - Unspecified cirrhosis of liver; K76.9 - Liver disease, unspecified (4) Ascites of liver Status: Chronic Code(s): R18.8 - Other ascites (5) Cirrhosis Status: Chronic Code(s): K74.60 - Unspecified cirrhosis of liver - Plan 06/29/2018 Liver cirrhosis-likely related to untreated hepatitis C Patient spouse states they are working with financial services in order to obtain outpatient treatment for hepatitis C Elevated ammonia level-patient and spouse report compliance with taking lactulose and Xifaxan. Spouse reports exception of 06/28/2018 where lactulose was held due to increasing frequency of loose stools. She reports prior to that patient was having 6-7 loose stools a day with no noted bleeding. Ammonia level 108 on admission. Patient fatigued and lethargic but answering questions appropriately. Coagulopathy-INR 2.5, likely due to the above. Thrombocytopenia -platelet count 68, likely due to the above GI bleeding-hemoglobin 8.8 hematocrit 25.2, will follow labs closely and monitor for bleeding. Patient is and spouse report of bright red bleeding per rectum and deny back tarry stools or hematemesis. Elevated liver function tests- total bilirubin 18.7 AST 94 ALT 54 alk phos 89 albumin 3.4 07/01/2018 patient states he is feeling somewhat better, continues with IV fluids at 100 cc an hour, states overall abdominal pain better and no obvious bleeding Bowel movement yesterday, should be multiple times a day secondary to his lactulose. Generalized weaken, encouraged patient to be up out of bed and to increase motility is much as possible. May want to consider physical therapy/ labs reviewed current hemoglobin 7.3, mild increased bilirubin 19.7 AST 116 ALT 52 WBC count 2.9 PT/INR 2, need to monitor for any obvious bleeding. Hepatitis C with liver cirrhosis, coagulopathy currently medical management and supportive care, currently patient generalized condition serious, may want to consider palliative care in the near future. Need to reevaluate abdomen for ascites. Ammonia level 84 not trending down last check was 82. 07/02/2018 patient continues to be weak and fatigued with hemoglobin 7 transfusion is pending continues with hyperbilirubinemia mild increase 20.4, mild decrease and LFTs/transaminases AST 101 ALT 56, ammonia level 51 mild decrease. Responding to medical management but continues with end-stage liver cirrhosis, medical management, full code full aggressive care per family member. Patient is getting up out of bed and going to the bathroom with minimal Assistance 07/03/2018-patient awake with periods of drowsiness. Eating lunch meal. Taking lactulose as ordered, stools are loose without any noted bleeding. Hemoglobin 9.9 hematocrit 29.2 total bilirubin 23.9 AST 90 7 AM 59 alk phos 104 ammonia level 47. PLAN -Diet as tolerated -Bowel regimen -Monitor for bleeding -Transfuse as needed -Monitor labs, CBC, liver function tests and ammonia level -Continue Xifaxan, Lasix, lactulose, spironolactone, nadolol and Questran -Supportive care -Further recommendations to follow Patient has been seen by myself and Dr. Downing and this note is written on his behalf - Attending Attestation Dr. Downing <Gena Rausch - Last Filed: 07/03/18 12:44> (1) Hyperammonemia Status: Chronic Code(s): E72.20 - Disorder of urea cycle metabolism, unspecified (2) Hepatic encephalopathy Status: Chronic Code(s): K72.90 - Hepatic failure, unspecified without coma (3) Liver disease, chronic, with cirrhosis Status: Chronic Code(s): K74.60 - Unspecified cirrhosis of liver; K76.9 - Liver disease, unspecified (4) Ascites of liver Status: Chronic Code(s): R18.8 - Other ascites (5) Cirrhosis Status: Chronic Code(s): K74.60 - Unspecified cirrhosis of liver - Attending Attestation Patient was seen and examined, agree with above note, patient is more awake today since he was was, patient has his at bedside she feels he is better improving, patient will be discharged home soon if he continues to improve, continue with the current plan and management <Wali Downing - Last Filed: 07/03/18 17:59> <Gena Rausch - Last Filed: 07/03/18 12:44> (5) Cirrhosis Qualifiers: Hepatic cirrhosis type: alcoholic cirrhosis Ascites presence: with ascites Qualified Code(s): K70.31 - Alcoholic cirrhosis of liver with ascites <Wali Downing - Last Filed: 07/03/18 17:59> (5) Cirrhosis Qualifiers: Hepatic cirrhosis type: alcoholic cirrhosis Ascites presence: with ascites Qualified Code(s): K70.31 - Alcoholic cirrhosis of liver with ascites
--- NOTE | 2018-07-03 16:12 | P.PNIM ---
Subjective Interval history: Patient is a 63-year-old -[place] gentleman with a known history of hepatitis C untreated as well as prostate cancer and atrial fibrillation who is not been on any anticoagulation due to cirrhosis and esophageal varices status post banding who presents to the emergency department with bright red bleeding per rectum that started last night. His whose name is Etelvina helps with the history. The states that the patient had blood streaked stool last night. She states that the patient had multiple episodes of diarrhea and has been on lactulose for his hepatic encephalopathy. She states she stopped the lactulose and started this morning woke up with a lot of blood in the stool. Has never had a colonoscopy in at least 2 years. Recently had a EGD here and had esophageal varices that were banded at stage II. He denies any fevers or chills, denies any chest pain, denies any shortness of breath, denies any abdominal pain, denies any's states that he does not appear swollen but the abdomen does appear larger than when he tried to couple days ago. Patient recently had a paracentesis June [id number] where had a 8400 mL's of fluid removed Patient has history of liver disease and known esophageal varices and therefore cannot be on any anticoagulation at all Patient INR is greater than 2 at all times 06-30 UNDERWENT EGD TODAY WITH NO ACTIVE SIGNS OF BLEEDING DW RN AND PT AND CM 07-01 SUSPECT HEMORRHOID BLEEDING DUE TO COAGULOPATHY DUE TO LIVER DX INCREASE LACTULOSE DUE TO ELEVATED AMMONIA LEVEL AM LABS DW RN AND PT AND FAMILY 07-02 ANEMIA WILL TRANSFUSE 3 UNITS PRBC AMMONIA LEVEL IMPROVED ON MORE LACTULOSE -NOT TOO COMPLIANT WITH MEDICATIONS AT HOME AM LABS INCREASE ACTIVITY DW RN AND PT AND CM AND GI HEPLOCK IV 07-03 WAS TRANSFUSED YESTERDAY AMMONIA LEVEL IS LESS BUT NOT NORMAL HAS CIRRHOSIS POOR COMPLIANCE WITH MEDS AT HOME AM LABS INCREASE ACTIVITY DW RN AND PT WANTS A LARGE BEDSIDE COMMODE HOPEFULLY HOME TOMORROW WILL NEED ALL RX AGAIN Physical Exam Vital signs: Vital Signs 07/02/18 16:10 07/02/18 16:25 07/02/18 20:00 Temperature 98.5 F 98.4 F 98.3 F Pulse Rate 71 67 107 H Respiratory Rate 16 16 20 Blood Pressure 124/79 136/70 163/91 H Pulse Oximetry 100 95 07/03/18 00:00 07/03/18 04:00 07/03/18 08:00 Temperature 97.9 F 98.8 F 98.4 F Pulse Rate 82 65 69 Respiratory Rate 21 18 18 Blood Pressure 109/56 L 168/78 H 134/82 Pulse Oximetry 94 L 99 100 07/03/18 12:00 07/03/18 14:07 Temperature 98.5 F Pulse Rate 80 Respiratory Rate 18 Blood Pressure 125/65 Pulse Oximetry 99 96 Intake & Output 07/02/18 07/03/18 07/03/18 18:59 06:59 18:59 Intake Total 2690 / 2690 730 / 730 Output Total 800 / 800 Balance 2690 / 2690 -70 / -70 Weight 124 kg Intake: IV 770 / 770 250 / 250 NS Inj 1,000 ML @ 100 mls/hr IV 770 / 770 .CONT .Q10H SHOSHANA Rx#:[id number] NS Inj 250 ML @ 15 mls/hr IV. 250 / 250 SIG ONCE SHOSHANA Rx#:[id number] Oral 650 / 650 480 / 480 Other 70 / 70 Rbc As-3 Leukoreduced Unit 20 / 20 [id number] Rbc As-3 Leukoreduced Unit 50 / 50 [id number] Intake (Blood Product) Amt 1200 / 1200 Rbc As-3 Leukoreduced Unit 400 / 400 [id number] Rbc As-3 Leukoreduced Unit 400 / 400 [id number] Rbc As-3 Leukoreduced Unit 400 / 400 [id number] Output: Urine 800 / 800 Other: Other Intake Source Rbc As-3 Leukoreduced Unit Saline Solution [id number] Rbc As-3 Leukoreduced Unit Saline Solution [id number] # Voids 5 Date of Last Bowel Movement 07/02/18 07/02/18 # Bowel Movements 0 3 Narrative: GENERAL: Patient is arousable but is quite lethargic at this time with an elevated ammonia level. He is not able to give a good history. SKIN: Warm and dry. HEAD: Atraumatic. Normocephalic. EYES: Pupils equal and round. No scleral icterus. No injection or drainage. ENT: No nasal bleeding or discharge. Mucous membranes pink and moist. Oral mucosa moist NECK: Trachea midline. No JVD. Supple CARDIOVASCULAR: Regular rate and rhythm. S1-S2 no S3 or S4 RESPIRATORY: No accessory muscle use. Clear to auscultation. Breath sounds equal bilaterally. GASTROINTESTINAL: Abdomen soft, non-tender, distended. Hepatic and splenic margins not palpable. Obese MUSCULOSKELETAL: Extremities without clubbing, cyanosis, +1 lower extremity edema. No obvious deformities. NEUROLOGICAL: Awake and alert. No obvious cranial nerve deficits. Motor grossly within normal limits. Five out of 5 muscle strength in the arms and legs. ABNormal speech. PSYCHIATRIC: INAppropriate mood and affect; insight and judgment ABnormal. Results - Labs CBC & Chem 7: 07/03/18 08:49 07/03/18 08:49 Laboratory Results - last 24 hr 07/02/18 07/02/18 07/03/18 08:52 22:22 08:49 WBC 4.6 RBC 2.95 L Hgb 9.9 L D 9.9 L Hct 29.7 L 29.2 L MCV 99.2 MCH 33.8 MCHC 34.0 RDW 20.5 H Plt Count 61 L MPV 9.4 Prelim Diff (Auto) Slide review pending Neut % (Auto) 74.0 H Lymph % (Auto) 10.3 [place] % (Auto) 13.2 H Eos % (Auto) 1.8 Baso % (Auto) 0.7 Neut # (Auto) 3.4 Lymph # (Auto) 0.5 L [place] # (Auto) 0.6 Eos # (Auto) 0.1 Baso # (Auto) 0.0 WBC Differential . Diff Scan Auto diff confirmed Differential Comment . Platelet Estimate Low L Platelet Morphology Enlarged H Martir Cells 1+ H Acanthocytes (Spur) Occ H Keratocytes Occ H PT INR Sodium Potassium Chloride Carbon Dioxide Anion Gap BUN Creatinine Estimated GFR Random Glucose Calcium Phosphorus Magnesium Total Bilirubin AST ALT Alkaline Phosphatase Ammonia Total Protein Albumin Blood Type O Positive Antibody Screen Negative MTS Gel Crossmatch See Detail 07/03/18 07/03/18 07/03/18 08:49 08:49 08:49 WBC RBC Hgb Hct MCV MCH MCHC RDW Plt Count MPV Prelim Diff (Auto) Neut % (Auto) Lymph % (Auto) [place] % (Auto) Eos % (Auto) Baso % (Auto) Neut # (Auto) Lymph # (Auto) [place] # (Auto) Eos # (Auto) Baso # (Auto) WBC Differential Diff Scan Differential Comment Platelet Estimate Platelet Morphology [place] Cells Acanthocytes (Spur) Keratocytes PT 22.1 H INR 2.2 Sodium 146 H Potassium 5.2 H Chloride 121 H Carbon Dioxide 17.1 L Anion Gap 8 BUN 22 H Creatinine 2.35 H Estimated GFR 34 L Random Glucose 116 H Calcium 9.2 Phosphorus 2.7 Magnesium 2.3 Total Bilirubin 23.9 H AST 97 H ALT 59 Alkaline Phosphatase 104 Ammonia 47 H Total Protein 7.7 Albumin 3.1 L Blood Type Antibody Screen MTS Gel Crossmatch - Procedures Date of procedure: 06/30/18 Pre-op diagnosis: Cirrhosis, history of esophageal varices, and GI bleed Procedure: PROCEDURE PERFORMED EGD PROCEDURE: The procedure, risks and benefits were discussed with Patient/POA and informed consent was obtained. Anesthesia sedated Patient with Diprivan. Patient was placed in the left lateral decubitus position. EGD: The Pentax videoscope was introduced through the oropharynx and advanced to the second portion of the duodenum under direct visualization. Retroflexion was performed in the stomach. FINDINGS: The esophagus this appeared to be unremarkable at this point with no obvious varices but we do see to small ulcerations consistent with the recent banding and one band that still sloughing away at the distal and but no evidence of any active or recent bleeding from the esophagus The stomach the gastric mucosa had a cobblestone appearance consistent with mild hypertensive portal gastropathy no gastric varices were noted and no blood or bleeding The duodenum this was normal ESTIMATED BLOOD LOSS: None SPECIMENS REMOVED: None COMPLICATIONS: None IMPRESSION: Portal hypertensive gastropathy PLAN: Supportive care EGD in 1 year Anesthesia: MAC Surgeon: Charles Lopez Condition: stable Disposition: floor Documented By: Charles Lopez MD Assessment and Plan - Plan GI bleed - HBG IS NOW 7.7 Hepatic encephalopathy Esophageal varices Heme positive stool Hepatitis C Auto anticoagulation Coagulopathy due to hepatitis C -Consult gastroenterology -Restart all home medications including lactulose 4 times daily, Protonix drip twice daily, propranolol, Xifaxan, spironolactone -Ammonia levels in a.m. 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 Patient may need another paracentesis Anemia monitor for signs of active bleeding HGB IS 7.0 WILL TRANSFUSE 3 UNITS PRBCS 07-02 CAME UP TO 9.9 AFTER 3 UNITS PRBC Chronic renal insufficiency and dehydration secondary to chronic meds for cirrhosis- SOME IMPROVEMENT Leukopenia secondary to cirrhosis Thrombocytopenia secondary to cirrhosis Elevated ammonia and hepatic encephalopathy will make sure that he is back on his rifaximin and his lactulose-- TRENDING DOWN TO 82 - STILL ELEVATED WILL INCREASE Coagulopathy and vitamin K deficiency will restart vitamin K AM LABS DC TO HOME TOMORROW 07-04 Code Status: FULL CODE Discussed Condition With: RN AND PT AND CM Discharge Planning: DC TO HOME IN AM
--- NOTE | 2018-07-03 16:30 | P.DS ---
Date of admission: 06/29/18 13:12 Primary care physician: Laura Snell Attending physician on discharge: Kong Keenan Anticipated date of discharge: 07/04/18 Brief History from admission: Patient is a 63-year-old -[place] gentleman with a known history of hepatitis C untreated as well as prostate cancer and atrial fibrillation who is not been on any anticoagulation due to cirrhosis and esophageal varices status post banding who presents to the emergency department with bright red bleeding per rectum that started last night. His whose name is Etelvina helps with the history. The states that the patient had blood streaked stool last night. She states that the patient had multiple episodes of diarrhea and has been on lactulose for his hepatic encephalopathy. She states she stopped the lactulose and started this morning woke up with a lot of blood in the stool. Has never had a colonoscopy in at least 2 years. Recently had a EGD here and had esophageal varices that were banded at stage II. He denies any fevers or chills, denies any chest pain, denies any shortness of breath, denies any abdominal pain, denies any's states that he does not appear swollen but the abdomen does appear larger than when he tried to couple days ago. Patient recently had a paracentesis June [id number] where had a 8400 mL's of fluid removed Patient has history of liver disease and known esophageal varices and therefore cannot be on any anticoagulation at all Patient INR is greater than 2 at all times Patient update on day of discharge: Patient is a 63-year-old -[place] gentleman with a known history of hepatitis C untreated as well as prostate cancer and atrial fibrillation who is not been on any anticoagulation due to cirrhosis and esophageal varices status post banding who presents to the emergency department with bright red bleeding per rectum that started last night. His whose name is Etelvina helps with the history. The states that the patient had blood streaked stool last night. She states that the patient had multiple episodes of diarrhea and has been on lactulose for his hepatic encephalopathy. She states she stopped the lactulose and started this morning woke up with a lot of blood in the stool. Has never had a colonoscopy in at least 2 years. Recently had a EGD here and had esophageal varices that were banded at stage II. He denies any fevers or chills, denies any chest pain, denies any shortness of breath, denies any abdominal pain, denies any's states that he does not appear swollen but the abdomen does appear larger than when he tried to couple days ago. Patient recently had a paracentesis June 062017 where had a 8400 mL's of fluid removed Patient has history of liver disease and known esophageal varices and therefore cannot be on any anticoagulation at all Patient INR is greater than 2 at all times 06-30 UNDERWENT EGD TODAY WITH NO ACTIVE SIGNS OF BLEEDING DW RN AND PT AND CM 07-01 SUSPECT HEMORRHOID BLEEDING DUE TO COAGULOPATHY DUE TO LIVER DX INCREASE LACTULOSE DUE TO ELEVATED AMMONIA LEVEL AM LABS DW RN AND PT AND FAMILY 07-02 ANEMIA WILL TRANSFUSE 3 UNITS PRBC AMMONIA LEVEL IMPROVED ON MORE LACTULOSE -NOT TOO COMPLIANT WITH MEDICATIONS AT HOME AM LABS INCREASE ACTIVITY DW RN AND PT AND CM AND GI HEPLOCK IV 07-03 WAS TRANSFUSED YESTERDAY AMMONIA LEVEL IS LESS BUT NOT NORMAL HAS CIRRHOSIS POOR COMPLIANCE WITH MEDS AT HOME AM LABS INCREASE ACTIVITY DW RN AND PT WANTS A LARGE BEDSIDE COMMODE HOPEFULLY HOME TOMORROW WILL NEED ALL RX AGAIN DS: Diagnosis - Discharge Diagnosis (1) Anemia Status: Acute (2) Coagulopathy Status: Chronic (3) Hyperammonemia Status: Chronic (4) Acute hepatic encephalopathy Status: Chronic (5) Acute kidney injury Status: Chronic (6) Altered mental status Status: Chronic (7) Anemia Status: Acute (8) Coagulopathy Status: Chronic (9) Encephalopathy Status: Chronic (10) Hepatic encephalopathy Status: Chronic (11) Hepatitis C Status: Chronic (12) Hepatorenal syndrome Status: Acute (13) Hyperammonemia Status: Chronic (14) Liver cirrhosis Status: Chronic (15) Physical deconditioning Status: Chronic (16) Ascites of liver Status: Chronic (17) Atrial fibrillation Status: Chronic (18) Cirrhosis Status: Chronic DS: Medications - Discharge Medications Prescriptions: cholestyramine-aspartame [Cholestyramine Light] 2 gm PO QID 30 Days #120 ea diltiazem HCl [Cardizem] 30 mg PO TID 30 Days #90 tab furosemide 40 mg PO DAILY #30 tab hydroxyzine HCl 50 mg PO Q6H PRN 30 Days #120 tab PRN Reason: Itching lactulose 60 ml PO QID #7200 ml pantoprazole [Protonix] 40 mg PO BID #60 tab phytonadione (vitamin K1) [Vitamin K1] 10 mg PO DAILY #30 ml propranolol 10 mg PO BID 30 Days #60 tab rifaximin [Xifaxan] 550 mg PO BID #60 tab spironolactone 100 mg PO DAILY #30 tab tamsulosin 0.4 mg PO DAILY #30 tab zinc sulfate 220 mg PO DAILY 30 Days #30 tab DS: Summary Hospital Course: Patient is a 63-year-old -[place] gentleman with a known history of hepatitis C untreated as well as prostate cancer and atrial fibrillation who is not been on any anticoagulation due to cirrhosis and esophageal varices status post banding who presents to the emergency department with bright red bleeding per rectum that started last night. His whose name is Etelvina helps with the history. The states that the patient had blood streaked stool last night. She states that the patient had multiple episodes of diarrhea and has been on lactulose for his hepatic encephalopathy. She states she stopped the lactulose and started this morning woke up with a lot of blood in the stool. Has never had a colonoscopy in at least 2 years. Recently had a EGD here and had esophageal varices that were banded at stage II. He denies any fevers or chills, denies any chest pain, denies any shortness of breath, denies any abdominal pain, denies any's states that he does not appear swollen but the abdomen does appear larger than when he tried to couple days ago. Patient recently had a paracentesis June [id number] where had a 8400 mL's of fluid removed Patient has history of liver disease and known esophageal varices and therefore cannot be on any anticoagulation at all Patient INR is greater than 2 at all times 06-30 UNDERWENT EGD TODAY WITH NO ACTIVE SIGNS OF BLEEDING DW RN AND PT AND CM 07-01 SUSPECT HEMORRHOID BLEEDING DUE TO COAGULOPATHY DUE TO LIVER DX INCREASE LACTULOSE DUE TO ELEVATED AMMONIA LEVEL AM LABS DW RN AND PT AND FAMILY 07-02 ANEMIA WILL TRANSFUSE 3 UNITS PRBC AMMONIA LEVEL IMPROVED ON MORE LACTULOSE -NOT TOO COMPLIANT WITH MEDICATIONS AT HOME AM LABS INCREASE ACTIVITY DW RN AND PT AND CM AND GI HEPLOCK IV 07-03 WAS TRANSFUSED YESTERDAY AMMONIA LEVEL IS LESS BUT NOT NORMAL HAS CIRRHOSIS POOR COMPLIANCE WITH MEDS AT HOME AM LABS INCREASE ACTIVITY DW RN AND PT WANTS A LARGE BEDSIDE COMMODE HOPEF[facility] HOME TOMORROW WILL NEED ALL RX AGAIN - Time Spent with Patient Total time spent providing and/or coordinating discharge services: Greater than 30 minutes - Quality: VTE Deep Vein Thrombosis/Pulmonary Embolism Present on Admission: No Exam Vital signs: Vital Signs 07/02/18 16:25 07/02/18 20:00 07/03/18 00:00 Temperature 98.4 F 98.3 F 97.9 F Pulse Rate 67 107 H 82 Respiratory Rate 16 20 21 Blood Pressure 136/70 163/91 H 109/56 L Pulse Oximetry 100 95 94 L 07/03/18 04:00 07/03/18 08:00 07/03/18 12:00 Temperature 98.8 F 98.4 F 98.5 F Pulse Rate 65 69 80 Respiratory Rate 18 18 18 Blood Pressure 168/78 H 134/82 125/65 Pulse Oximetry 99 100 99 07/03/18 14:07 Temperature Pulse Rate Respiratory Rate Blood Pressure Pulse Oximetry 96 Intake & Output 07/02/18 07/03/18 07/03/18 18:59 06:59 18:59 Intake Total 2690 / 2690 730 / 730 Output Total 800 / 800 Balance 2690 / 2690 -70 / -70 Weight 124 kg Intake: IV 770 / 770 250 / 250 NS Inj 1,000 ML @ 100 mls/hr IV 770 / 770 .CONT .Q10H [facility] Rx#:[id number] NS Inj 250 ML @ 15 mls/hr IV. 250 / 250 SIG ONCE [facility] Rx#:[id number] Oral 650 / 650 480 / 480 Other 70 / 70 Rbc As-3 Leukoreduced Unit 20 / 20 [id number] Rbc As-3 Leukoreduced Unit 50 / 50 [id number] Intake (Blood Product) Amt 1200 / 1200 Rbc As-3 Leukoreduced Unit 400 / 400 [id number] Rbc As-3 Leukoreduced Unit 400 / 400 [id number] Rbc As-3 Leukoreduced Unit 400 / 400 [id number] Output: Urine 800 / 800 Other: Other Intake Source Rbc As-3 Leukoreduced Unit Saline Solution [id number] Rbc As-3 Leukoreduced Unit Saline Solution [id number] # Voids 5 Date of Last Bowel Movement 07/02/18 07/02/18 # Bowel Movements 0 3 Narrative: GENERAL: Patient is arousable but is quite lethargic at this time with an elevated ammonia level. He is not able to give a good history. SKIN: Warm and dry. HEAD: Atraumatic. Normocephalic. EYES: Pupils equal and round. No scleral icterus. No injection or drainage. ENT: No nasal bleeding or discharge. Mucous membranes pink and moist. Oral mucosa moist NECK: Trachea midline. No JVD. Supple CARDIOVASCULAR: Regular rate and rhythm. S1-S2 no S3 or S4 RESPIRATORY: No accessory muscle use. Clear to auscultation. Breath sounds equal bilaterally. GASTROINTESTINAL: Abdomen soft, non-tender, distended. Hepatic and splenic margins not palpable. Obese MUSCULOSKELETAL: Extremities without clubbing, cyanosis, +1 lower extremity edema. No obvious deformities. NEUROLOGICAL: Awake and alert. No obvious cranial nerve deficits. Motor grossly within normal limits. Five out of 5 muscle strength in the arms and legs. ABNormal speech. PSYCHIATRIC: INAppropriate mood and affect; insight and judgment ABnormal. Results Procedures completed during hospitalization: Date of procedure: 06/30/18 Pre-op diagnosis: Cirrhosis, history of esophageal varices, and GI bleed Procedure: PROCEDURE PERFORMED EGD PROCEDURE: The procedure, risks and benefits were discussed with Patient/POA and informed consent was obtained. Anesthesia sedated Patient with Diprivan. Patient was placed in the left lateral decubitus position. EGD: The Pentax videoscope was introduced through the oropharynx and advanced to the second portion of the duodenum under direct visualization. Retroflexion was performed in the stomach. FINDINGS: The esophagus this appeared to be unremarkable at this point with no obvious varices but we do see to small ulcerations consistent with the recent banding and one band that still sloughing away at the distal and but no evidence of any active or recent bleeding from the esophagus The stomach the gastric mucosa had a cobblestone appearance consistent with mild hypertensive portal gastropathy no gastric varices were noted and no blood or bleeding The duodenum this was normal ESTIMATED BLOOD LOSS: None SPECIMENS REMOVED: None COMPLICATIONS: None IMPRESSION: Portal hypertensive gastropathy PLAN: Supportive care EGD in 1 year Anesthesia: MAC Surgeon: Charles Lopez Condition: stable Disposition: floor Documented By: Charles Lopez MD Completed studies during hospitalization: Laboratory Results WBC 4.6 th/mm3 (4.0-11.0) 07/03/18 08:49 RBC 2.95 mil/mm3 (4.50-5.90) L 07/03/18 08:49 Hgb 9.9 gm/dL (13.0-17.0) L 07/03/18 08:49 Hct 29.2 % (39.0-51.0) L 07/03/18 08:49 MCV 99.2 fL (80.0-100.0) 07/03/18 08:49 MCH 33.8 pg (27.0-34.0) 07/03/18 08:49 MCHC 34.0 % (32.0-36.0) 07/03/18 08:49 RDW 20.5 % (11.6-17.2) H 07/03/18 08:49 Plt Count 61 th/mm3 (150-450) L 07/03/18 08:49 MPV 9.4 fL (7.0-11.0) 07/03/18 08:49 Prelim Diff (Auto) Slide review pending 07/03/18 08:49 Neut % (Auto) 74.0 % (16.0-70.0) H 07/03/18 08:49 Lymph % (Auto) 10.3 % (9.0-44.0) 07/03/18 08:49 [place] % (Auto) 13.2 % (0.0-8.0) H 07/03/18 08:49 Eos % (Auto) 1.8 % (0.0-4.0) 07/03/18 08:49 Baso % (Auto) 0.7 % (0.0-2.0) 07/03/18 08:49 Neut # (Auto) 3.4 th/mm3 (1.8-7.7) 07/03/18 08:49 Lymph # (Auto) 0.5 th/mm3 (1.0-4.8) L 07/03/18 08:49 [place] # (Auto) 0.6 th/mm3 (0.0-0.9) 07/03/18 08:49 Eos # (Auto) 0.1 th/mm3 (0.0-0.4) 07/03/18 08:49 Baso # (Auto) 0.0 th/mm3 (0.0-0.2) 07/03/18 08:49 WBC Differential . 07/03/18 08:49 Diff Scan Auto diff confirmed 07/03/18 08:49 Differential Comment . 07/03/18 08:49 Platelet Estimate Low (Normal) L 07/03/18 08:49 Platelet Morphology Enlarged (Normal) H 07/03/18 08:49 Ovalocytes 1+ (None) H 06/29/18 11:41 [place] Cells 1+ (None) H 07/03/18 08:49 Acanthocytes (Spur) Occ (None) H 07/03/18 08:49 Keratocytes Occ (None) H 07/03/18 08:49 PT 22.1 sec (9.8-11.6) H 07/03/18 08:49 INR 2.2 Ratio 07/03/18 08:49 APTT 56.3 sec (24.3-30.1) H 06/29/18 11:41 Sodium 146 meq/L (136-145) H 07/03/18 08:49 Potassium 5.2 meq/L (3.5-5.1) H 07/03/18 08:49 Chloride 121 meq/L (98-107) H 07/03/18 08:49 Carbon Dioxide 17.1 meq/L (21.0-32.0) L 07/03/18 08:49 Anion Gap 8 meq/L (5-15) 07/03/18 08:49 BUN 22 mg/dL (7-18) H 07/03/18 08:49 Creatinine 2.35 mg/dL (0.60-1.30) H 07/03/18 08:49 Estimated GFR 34 mL/min (>89) L 07/03/18 08:49 Random Glucose 116 mg/dL (74-106) H 07/03/18 08:49 Hemoglobin A1c 4.1 % (4.3-6.0) L 06/29/18 20:54 Calcium 9.2 mg/dL (8.5-10.1) 07/03/18 08:49 Phosphorus 2.7 mg/dL (2.5-4.9) 07/03/18 08:49 Magnesium 2.3 mg/dL (1.5-2.5) 07/03/18 08:49 Total Bilirubin 23.9 mg/dL (0.2-1.0) H 07/03/18 08:49 AST 97 U/L (15-37) H 07/03/18 08:49 ALT 59 U/L (12-78) 07/03/18 08:49 Alkaline Phosphatase 104 U/L (45-117) 07/03/18 08:49 Ammonia 47 mcmol/L (11-32) H 07/03/18 08:49 Total Creatine Kinase 70 U/L (39-308) 07/01/18 19:36 Troponin I 0.02 ng/mL (0.02-0.05) 07/01/18 19:36 Total Protein 7.7 g/dL (6.4-8.2) 07/03/18 08:49 Albumin 3.1 g/dL (3.4-5.0) L 07/03/18 08:49 Amylase 44 U/L (25-115) 07/02/18 06:17 Lipase 125 U/L (73-393) 06/29/18 11:41 TSH 1.710 uIU/mL (0.358-3.740) 06/29/18 20:54 Free T4 1.31 ng/dL (0.76-1.46) 06/29/18 20:54 Blood Type O Positive 07/02/18 08:52 Blood Type Recheck Not needed 06/29/18 11:41 Antibody Screen Negative 07/02/18 08:52 MTS Gel Crossmatch See Detail 07/02/18 08:52 Blood Bank Comment 06/29/18 22:17 Impressions Abdomen Ultrasound 07/02/18 00:00 CONCLUSION: Stable small volume of free fluid/ascites in the abdomen and pelvis. Labs on day of discharge: Labs from last 24 hours 07/03/18 07/03/18 07/03/18 08:49 08:49 08:49 WBC RBC Hgb Hct MCV MCH MCHC RDW Plt Count MPV Prelim Diff (Auto) Neut % (Auto) Lymph % (Auto) [place] % (Auto) Eos % (Auto) Baso % (Auto) Neut # (Auto) Lymph # (Auto) [place] # (Auto) Eos # (Auto) Baso # (Auto) WBC Differential Diff Scan Differential Comment Platelet Estimate Platelet Morphology Martir Cells Acanthocytes (Spur) Keratocytes PT 22.1 H INR 2.2 Sodium 146 H Potassium 5.2 H Chloride 121 H Carbon Dioxide 17.1 L Anion Gap 8 BUN 22 H Creatinine 2.35 H Estimated GFR 34 L Random Glucose 116 H Calcium 9.2 Phosphorus 2.7 Magnesium 2.3 Total Bilirubin 23.9 H AST 97 H ALT 59 Alkaline Phosphatase 104 Ammonia 47 H Total Protein 7.7 Albumin 3.1 L MTS Gel Crossmatch 07/03/18 07/02/18 07/02/18 08:49 22:22 08:52 WBC 4.6 RBC 2.95 L Hgb 9.9 L 9.9 L D Hct 29.2 L 29.7 L MCV 99.2 MCH 33.8 MCHC 34.0 RDW 20.5 H Plt Count 61 L MPV 9.4 Prelim Diff (Auto) Slide review pending Neut % (Auto) 74.0 H Lymph % (Auto) 10.3 [place] % (Auto) 13.2 H Eos % (Auto) 1.8 Baso % (Auto) 0.7 Neut # (Auto) 3.4 Lymph # (Auto) 0.5 L [place] # (Auto) 0.6 Eos # (Auto) 0.1 Baso # (Auto) 0.0 WBC Differential . Diff Scan Auto diff confirmed Differential Comment . Platelet Estimate Low L Platelet Morphology Enlarged H Martir Cells 1+ H Acanthocytes (Spur) Occ H Keratocytes Occ H PT INR Sodium Potassium Chloride Carbon Dioxide Anion Gap BUN Creatinine Estimated GFR Random Glucose Calcium Phosphorus Magnesium Total Bilirubin AST ALT Alkaline Phosphatase Ammonia Total Protein Albumin MTS Gel Crossmatch See Detail - Impressions ITS Impressions Abdomen Ultrasound 07/02/18 00:00 CONCLUSION: Stable small volume of free fluid/ascites in the abdomen and pelvis. Discharge Plan - Discharge Disposition Patient Disposition: 01 Discharge Home - Discharge Condition Condition: Fair - Discharge Order Discharge Orders: Discharge Order (Routine); Ordered 07/03/18 Ordered By: Kong Keenan - Discharge Details Anticipated Discharge Date: 07/04/18 Discharge Comment: DC TO HOME IN AM - Physicians Team Primary Care Provider: Laura Snell, Attending Provider: Kong Keenan Other Providers: Charles Lopez MD
[2018-07-04 04:43] LABS: Baso % (Auto) 0.6 % (0.0-2.0); Eos # (Auto) 0.1 th/mm3 (0.0-0.4); Eos % (Auto) 1.5 % (0.0-4.0); Hemoglobin 9.1 gm/dL (13.0-17.0); Lymph # (Auto) 0.6 th/mm3 (1.0-4.8); Lymph % (Auto) 12.7 % (9.0-44.0); Mean Corpuscular Hemoglobin 34.3 pg (27.0-34.0); Mean Corpuscular Volume 98.1 fL (80.0-100.0); Mean Platelet Volume 9.1 fL (7.0-11.0); Mono # (Auto) 0.5 th/mm3 (0.0-0.9); Mono % (Auto) 10.3 % (0.0-8.0); Neut # (Auto) 3.5 th/mm3 (1.8-7.7); Neut % (Auto) 74.9 % (16.0-70.0); Platelet Count 57 th/mm3 (150-450); Red Blood Count 2.65 mil/mm3 (4.50-5.90); Red Cell Distribution Width 19.7 % (11.6-17.2); White Blood Count 4.7 th/mm3 (4.0-11.0)
[2018-07-04 04:57] LABS: Alanine Aminotransferase 53 U/L (12-78)
[2018-07-04 05:05] LABS: Alkaline Phosphatase 106 U/L (45-117); Anion Gap 6 meq/L (5-15); Aspartate Aminotransferase 74 U/L (15-37); Blood Urea Nitrogen 28 mg/dL (7-18); Calcium 9.3 mg/dL (8.5-10.1); Carbon Dioxide 19.6 meq/L (21.0-32.0); Chloride 121 meq/L (98-107); Glomerular Filtration Rate 26 mL/min (>89); Glucose,Random 104 mg/dL (74-106); Potassium 5.5 meq/L (3.5-5.1); Sodium 147 meq/L (136-145); Total Protein 7.6 g/dL (6.4-8.2)
[2018-07-04 05:45] LABS: Platelet Morphology Normal (Normal)
[2018-07-04 05:46] LABS: Acanthocytes Occ
[2018-07-04 05:54] VITALS: RESP 20
[2018-07-04 06:36] LABS: INR 2.4 Ratio; Prothrombin Time 23.9 sec (9.8-11.6)
[2018-07-04 08:07] VITALS: BP 115/62; PULSE 79; TEMP 98.9; O2SAT 98
[2018-07-04] MEDS: Spironolactone 50 MG Tablet PO SCH (08:09)
[2018-07-04] MEDS: Furosemide 40 MG Tablet PO SCH (08:10)
[2018-07-04] MEDS: dilTIAZem 30 MG Tablet PO SCH (08:10)
[2018-07-04] MEDS: Propranolol 10 MG Tablet PO SCH (08:10)
[2018-07-04] MEDS: rifAXIMin 550 MG Tablet PO SCH (08:11)
[2018-07-04] MEDS: Phytonadione 5 MG/SWFI 5 ML Oral Syringe PO SCH (08:11)
[2018-07-04] MEDS: Pantoprazole Inj 40 MG Vial IV.PUSH SCH (08:11)
[2018-07-04] MEDS: Cholestyramine Light 4 GM Packet PO SCH (08:11)
[2018-07-04] MEDS: Senna/Docusate Sodium 8.6/50 MG Tablet PO SCH (08:12)
--- NOTE | 2018-07-04 11:35 | P.DCO ---
- Diagnosis (1) Acute GI bleeding Status: Acute (2) Acute kidney injury Status: Acute (3) Hepatorenal syndrome Status: Acute - Physical Therapy Order: Evaluate and treat, Strength and gait training - Home Health Nursing Order: Medical education, Signs/symptoms of disease process, Nursing assessment with vital signs - Case Management Consult Yes - Certification I have seen patient Eduardo Kaba on 07/04/18. My clinical findings support the need for the requested home health care services because: Limited mobility due to disease progression, Deconditioned with increased weakness, Medication compliance is questionable, Limited ability to care for self I certify that my clinical findings support that this patient is homebound because: Impaired cognitive ability/safety, Unsteady gait/balance, Unsafe to leave home unassisted
== END 2018-07-04 11:04 | disposition home health service (06) ==
LOC: NEPC 10:25 → NEDA 13:12 → N07 16:29
PROVIDERS: ADMIT Hospitalist; ATTEND Hospitalist
PROC: PANENDO (2018-06-30 10:37)

== ENCOUNTER 2018-07-09 07:02 | Inpatient (IN) ==
--- NOTE | 2018-07-09 07:47 | ED ---
HPI General Chief Complaint: Altered Mental Status Stated Complaint: medical Time Seen by Provider: 07/09/18 07:32 Source: family Mode of arrival: wheelchair Limitations: altered mental status History of Present Illness HPI narrative: Family brings the patient in stating that he has been poorly communicative since 2 days ago. Patient family member states that when he gets like this is usually due to his liver. When the family was asked why they did not come 2 days ago, they stated that they were at a alliance party and were hosting and they try to get to his primary care but could not, so decided to bring him today. Per family he has not been febrile, he has not been vomiting or had any diarrhea however he has not been eating his usual Related Data Previous Rx's Medication Instructions Recorded cholestyramine-aspartame 2 gm PO QID 30 Days #120 ea 07/03/18 [Cholestyramine Light] diltiazem HCl [Cardizem] 30 mg PO TID 30 Days #90 tab 07/03/18 furosemide 40 mg PO DAILY #30 tab 07/03/18 hydroxyzine HCl 50 mg PO Q6H PRN 30 Days #120 tab 07/03/18 lactulose 60 ml PO QID #7200 ml 07/03/18 pantoprazole [Protonix] 40 mg PO BID #60 tab 07/03/18 phytonadione (vitamin K1) [Vitamin 10 mg PO DAILY #30 ml 07/03/18 K1] propranolol 10 mg PO BID 30 Days #60 tab 07/03/18 rifaximin [Xifaxan] 550 mg PO BID #60 tab 07/03/18 spironolactone 100 mg PO DAILY #30 tab 07/03/18 tamsulosin 0.4 mg PO DAILY #30 tab 07/03/18 zinc sulfate 220 mg PO DAILY 30 Days #30 tab 07/03/18 Allergies Allergy/AdvReac Type Severity Reaction Status Date / Time chlorhexidine Allergy Mild Rash Verified 07/09/18 07:46 Review of Systems ROS: all other systems reviewed are negative PMFSH History History Provided By: Family Member Medical History Medical History Atrial fibrillation (Acute) Cirrhosis (Acute) Esophageal varix bleeding (Acute) Hepatic encephalopathy (Acute) Hepatitis C (Acute) History of abdominal paracentesis (Acute) History of coagulopathy (Acute) Noncompliance (Acute) Prostate cancer (Acute) Psoriasis (Acute) Surgical History Surgical History H/O prostate biopsy (Acute) History of esophagogastroduodenoscopy (EGD) (Acute) History of abdominal paracentesis (Resolved) Family History Family History Mother Family history of acute myocardial infarction Social History Social History Substance History: No History of Abuse Second Hand Smoke Exposure: No Smoking Status: Former smoker Tobacco Type: Cigarettes How Often Do You Have a Drink Containing Alcohol: Unable to Obtain Hx Recent Travel: No Recent Travel in [facility] within the Last 8 Weeks: No Recent Out of Country Travel within the Last 8 Weeks: No Exam Narrative Exam Narrative: GENERAL: Well-nourished, well-developed patient in no apparent distress. SKIN: Warm and dry. HEAD: Atraumatic. Normocephalic. EYES: Pupils equal and round. Bilateral scleral icterus. No injection or drainage. ENT: No nasal bleeding or discharge. Mucous membranes pink and moist. NECK: Trachea midline. No JVD. CARDIOVASCULAR: Regular rate and rhythm. no rubs or gallops RESPIRATORY: No accessory muscle use. Clear to auscultation. Breath sounds equal bilaterally. GASTROINTESTINAL: Abdomen soft, moderately distended abdomen with wave fluid shift . No rebound or guarding MUSCULOSKELETAL: Extremities without clubbing, cyanosis, or edema. No obvious deformities. NEUROLOGICAL: Awake , confused , staring and not following any commands. Motor grossly within normal limits. Five out of 5 muscle strength in the arms and legs. Not speaking/answering questions Course Initial Documented Vital Signs Temperature 97.5 F L 07/09/18 07:12 Pulse Rate 82 07/09/18 07:12 Respiratory Rate 20 07/09/18 07:12 Blood Pressure 114/59 L 07/09/18 07:12 Pulse Oximetry 96 07/09/18 07:12 Last Documented Vital Signs Temperature 97.5 F L 07/09/18 07:12 Pulse Rate 73 07/09/18 07:46 Respiratory Rate 14 07/09/18 07:43 Blood Pressure 113/59 L 07/09/18 07:36 Pulse Oximetry 100 07/09/18 07:47 Medical Decision Making MDM Narrative Medical decision making narrative: Patient's WBC 3.1, H&H 9.4 27.7 which is a return to his hemoglobin number is on July 01 transiently during July 02 and and he is values went up to 9.9/. Patient has thrombocytopenia of 66 which is consistent with previous values of 57k, 61k, 56k Elevated coagulation profile with an INR of 2.6, 26.5 PT, PTT of 66 All electrolytes are abnormal with sodium of 148, potassium of 6.1, chloride of 123, bicarb of 16.6, BUN is 47 creatinine is 4.22, showing an acute on chronic worsening from just about 6 days ago. Lactic acid is elevated at 4.1 ast elev 101, and ALT of 58 that 2-1 ratio suggestive of alcohol liver disease. Elevated ammonia level at 95 A normal TSH screen Hypoalbuminemia of 3.0 Negative alcohol today Head CT read by radiologist shows stable evaluation no evidence of any acute infarct hemorrhage mass or edema Chest x-ray read by radiologist read as stable chest without evidence of acute cardiopulmonary process Medical Screen Exam Complete: Yes Emergency Medical Condition: Yes Medical Records Medical records reviewed: Yes I reviewed the patient's medical records. Patient was most recently admitted on June 29 and discharge around July 04 the due to GI bleed. During review it was noted that he has hepatitis C untreated, atrial fibrillation for which he is not on any anticoagulation due to the cirrhosis and esophageal varices that he has had (status post banding of those) Lab Data Result diagrams: 07/09/18 07:50 07/09/18 07:50 Lab Results 07/09/18 07/09/18 07/09/18 Range/Units 07:40 07:50 07:50 WBC 3.1 L (4.0-11.0) th/mm3 RBC 2.73 L (4.50-5.90) mil/mm3 Hgb 9.4 L (13.0-17.0) gm/dL Hct 27.7 L (39.0-51.0) % MCV 101.5 H (80.0-100.0) fL MCH 34.4 H (27.0-34.0) pg MCHC 33.9 (32.0-36.0) % RDW 19.9 H (11.6-17.2) % Plt Count 66 L (150-450) th/mm3 MPV 10.4 (7.0-11.0) fL Prelim Diff (Auto) Slide review pending Neut % (Auto) 68.5 (16.0-70.0) % Lymph % (Auto) 14.1 (9.0-44.0) % [place] % (Auto) 15.4 H (0.0-8.0) % Eos % (Auto) 1.4 (0.0-4.0) % Baso % (Auto) 0.6 (0.0-2.0) % Neut # (Auto) 2.1 (1.8-7.7) th/mm3 Lymph # (Auto) 0.4 L (1.0-4.8) th/mm3 [place] # (Auto) 0.5 (0.0-0.9) th/mm3 Eos # (Auto) 0.0 (0.0-0.4) th/mm3 Baso # (Auto) 0.0 (0.0-0.2) th/mm3 Differential Comment . PT 26.5 H (9.8-11.6) sec INR 2.6 Ratio APTT 66.0 H (23.4-31.7) sec Sodium (136-145) meq/L Potassium (3.5-5.1) meq/L Chloride (98-107) meq/L Carbon Dioxide (21.0-32.0) meq/L Anion Gap (5-15) meq/L BUN (7-18) mg/dL Creatinine (0.60-1.30) mg/dL Estimated GFR (>89) mL/min POC Glucose 72 (68-110) mg/dl Random Glucose (74-106) mg/dL Lactic Acid (0.4-2.0) mmol/L Calcium (8.5-10.1) mg/dL Total Bilirubin (0.2-1.0) mg/dL AST (15-37) U/L ALT (12-78) U/L Alkaline Phosphatase (45-117) U/L Ammonia (11-32) mcmol/L Total Creatine Kinase (39-308) U/L Troponin I (0.02-0.05) ng/mL Total Protein (6.4-8.2) g/dL Albumin (3.4-5.0) g/dL TSH (0.358-3.740) uIU/mL Salicylates (2.8-20.0) mg/dL Serum Alcohol (0-5) mg/dL 07/09/18 07/09/18 07/09/18 Range/Units 07:50 07:50 07:50 WBC (4.0-11.0) th/mm3 RBC (4.50-5.90) mil/mm3 Hgb (13.0-17.0) gm/dL Hct (39.0-51.0) % MCV (80.0-100.0) fL MCH (27.0-34.0) pg MCHC (32.0-36.0) % RDW (11.6-17.2) % Plt Count (150-450) th/mm3 MPV (7.0-11.0) fL Prelim Diff (Auto) Neut % (Auto) (16.0-70.0) % Lymph % (Auto) (9.0-44.0) % [place] % (Auto) (0.0-8.0) % Eos % (Auto) (0.0-4.0) % Baso % (Auto) (0.0-2.0) % Neut # (Auto) (1.8-7.7) th/mm3 Lymph # (Auto) (1.0-4.8) th/mm3 [place] # (Auto) (0.0-0.9) th/mm3 Eos # (Auto) (0.0-0.4) th/mm3 Baso # (Auto) (0.0-0.2) th/mm3 Differential Comment PT (9.8-11.6) sec INR Ratio APTT (23.4-31.7) sec Sodium 148 H (136-145) meq/L Potassium 6.1 H (3.5-5.1) meq/L Chloride 123 H (98-107) meq/L Carbon Dioxide 16.6 L (21.0-32.0) meq/L Anion Gap 8 (5-15) meq/L BUN 47 H (7-18) mg/dL Creatinine 4.22 H (0.60-1.30) mg/dL Estimated GFR 17 L (>89) mL/min POC Glucose (68-110) mg/dl Random Glucose 72 L (74-106) mg/dL Lactic Acid 4.1 H* (0.4-2.0) mmol/L Calcium 9.8 (8.5-10.1) mg/dL Total Bilirubin 28.9 H (0.2-1.0) mg/dL AST 101 H (15-37) U/L ALT 58 (12-78) U/L Alkaline Phosphatase 107 (45-117) U/L Ammonia 95 H (11-32) mcmol/L Total Creatine Kinase 38 L (39-308) U/L Troponin I 0.02 (0.02-0.05) ng/mL Total Protein 8.2 D (6.4-8.2) g/dL Albumin 3.0 L (3.4-5.0) g/dL TSH 1.040 (0.358-3.740) uIU/mL Salicylates (2.8-20.0) mg/dL Serum Alcohol Less than 3 (0-5) mg/dL 07/09/18 Range/Units 07:50 WBC (4.0-11.0) th/mm3 RBC (4.50-5.90) mil/mm3 Hgb (13.0-17.0) gm/dL Hct (39.0-51.0) % MCV (80.0-100.0) fL MCH (27.0-34.0) pg MCHC (32.0-36.0) % RDW (11.6-17.2) % Plt Count (150-450) th/mm3 MPV (7.0-11.0) fL Prelim Diff (Auto) Neut % (Auto) (16.0-70.0) % Lymph % (Auto) (9.0-44.0) % [place] % (Auto) (0.0-8.0) % Eos % (Auto) (0.0-4.0) % Baso % (Auto) (0.0-2.0) % Neut # (Auto) (1.8-7.7) th/mm3 Lymph # (Auto) (1.0-4.8) th/mm3 [place] # (Auto) (0.0-0.9) th/mm3 Eos # (Auto) (0.0-0.4) th/mm3 Baso # (Auto) (0.0-0.2) th/mm3 Differential Comment PT (9.8-11.6) sec INR Ratio APTT (23.4-31.7) sec Sodium (136-145) meq/L Potassium (3.5-5.1) meq/L Chloride (98-107) meq/L Carbon Dioxide (21.0-32.0) meq/L Anion Gap (5-15) meq/L BUN (7-18) mg/dL Creatinine (0.60-1.30) mg/dL Estimated GFR (>89) mL/min POC Glucose (68-110) mg/dl Random Glucose (74-106) mg/dL Lactic Acid (0.4-2.0) mmol/L Calcium (8.5-10.1) mg/dL Total Bilirubin (0.2-1.0) mg/dL AST (15-37) U/L ALT (12-78) U/L Alkaline Phosphatase (45-117) U/L Ammonia (11-32) mcmol/L Total Creatine Kinase (39-308) U/L Troponin I (0.02-0.05) ng/mL Total Protein (6.4-8.2) g/dL Albumin (3.4-5.0) g/dL TSH (0.358-3.740) uIU/mL Salicylates Less than 1.7 L (2.8-20.0) mg/dL Serum Alcohol (0-5) mg/dL Imaging Data Radiologist's impression: Chest X-Ray 07/09/18 07:38 CONCLUSION: Stable chest without evidence of acute cardiopulmonary process. Head CT 07/09/18 07:38 CONCLUSION: 1. Stable evaluation. 2. No evidence of acute infarct, hemorrhage, mass or edema. . ECG Data EKG Prior to Arrival: No Attestation: I personally reviewed and interpreted this ECG as follows: Prior ECG tracings: not available for review Interpretation: Motion artifact noted, sinus rhythm, 70 bpm, normal intervals, no evidence of any acute ST elevation ME pattern. PACs noted no significant Q waves noted Discharge Plan Discharge Disposition Patient Disposition: 30 Still Patient Discharge Condition Condition: Fair Discharge Details Diagnosis: Altered mental status, Acute hepatic encephalopathy Physicians Team ED Provider: Yunier Mcdaniels Primary Care Provider: UNKNOWN, Rxs /Orders / Referrals /Forms Prescriptions: No Action phytonadione (vitamin K1) [Vitamin K1] 10 mg/mL Solution 10 mg PO DAILY Qty: 30 RF: 0 lactulose 20 gram/30 mL Solution 60 ml PO QID Qty: 7200 RF: 0 furosemide 40 mg Tablet 40 mg PO DAILY Qty: 30 RF: 0 hydroxyzine HCl 50 mg Tablet 50 mg PO Q6H PRN (Reason: Itching) 30 Days Qty: 120 RF: 0 zinc sulfate 220 mg Tablet 220 mg PO DAILY 30 Days Qty: 30 RF: 0 propranolol 10 mg Tablet 10 mg PO BID 30 Days Qty: 60 RF: 0 tamsulosin 0.4 mg Capsule,Extended Release 24hr 0.4 mg PO DAILY Qty: 30 RF: 0 pantoprazole [Protonix] 40 mg Tablet,Delayed Release (Dr/Ec) 40 mg PO BID Qty: 60 RF: 0 diltiazem HCl [Cardizem] 30 mg Tablet 30 mg PO TID 30 Days Qty: 90 RF: 0 spironolactone 50 mg Tablet 100 mg PO DAILY Qty: 30 RF: 0 cholestyramine-aspartame [Cholestyramine Light] 4 gram Powder In Packet 2 gm PO QID 30 Days Qty: 120 RF: 0 rifaximin [Xifaxan] 550 mg Tablet 550 mg PO BID Qty: 60 RF: 0 Discharge Interventions Interventions: Vital Signs Last Done: 07/09/18 07:36 Status ED Status: With Doctor
--- NOTE | 2018-07-09 08:06 | XR ---
EXAM DATE: 07/09/2018 7:55 AM EST AGE/SEX: 63 years / Male INDICATIONS: Shortness of breath, lower chest pain. CLINICAL DATA: This is the patient's initial encounter. Patient reports that signs and symptoms have been present for 3 days and indicates a pain score of Nonresponsive. MEDICAL/SURGICAL HISTORY: . Cirrhosis. Esophageal varices. Hepatic encephalopathy. Hep C. Prost ate cancer. . Prostate biopsy. Paracentesis. EGD. . COMPARISON: [facility] [place] 1[place]/2018. . FINDINGS: Lungs are hypoaerated but otherwise clear. There is no evidence of consolidating airspace disease mas s densities or effusions. Heart and mediastinal structures are stable. Heart remains at the [place] its of normal in size. CONCLUSION: Stable chest without evidence of acute cardiopulmonary process. Electronically signed by: Amos Slade MD 07/09/2018 8:04 AM EST
[2018-07-09 08:17] LABS: Baso % (Auto) 0.6 % (0.0-2.0); Eos % (Auto) 1.4 % (0.0-4.0); Hematocrit 27.7 % (39.0-51.0); Hemoglobin 9.4 gm/dL (13.0-17.0); Lymph # (Auto) 0.4 th/mm3 (1.0-4.8); Lymph % (Auto) 14.1 % (9.0-44.0); Mean Corpuscular HGB Conc 33.9 % (32.0-36.0); Mean Corpuscular Hemoglobin 34.4 pg (27.0-34.0); Mean Corpuscular Volume 101.5 fL (80.0-100.0); Mean Platelet Volume 10.4 fL (7.0-11.0); Mono # (Auto) 0.5 th/mm3 (0.0-0.9); Mono % (Auto) 15.4 % (0.0-8.0); Neut # (Auto) 2.1 th/mm3 (1.8-7.7); Neut % (Auto) 68.5 % (16.0-70.0); Platelet Count 66 th/mm3 (150-450); Red Blood Count 2.73 mil/mm3 (4.50-5.90); Red Cell Distribution Width 19.9 % (11.6-17.2); White Blood Count 3.1 th/mm3 (4.0-11.0)
--- NOTE | 2018-07-09 08:30 | CT ---
EXAM DATE: 07/09/2018 8:26 AM EST AGE/SEX: 63 years / Male INDICATIONS: Altered Mental Status CLINICAL DATA: This is the patient's initial encounter. Patient reports that signs and symptoms have been present for 2 days and indicates a pain score of 0/10. MEDICAL/SURGICAL HISTORY: Cirrhosis. Hepatitis C. Carcinoma, prostatic. Atrial Fibrillation . P rostate biopsy RADIATION DOSE: 56.35 CTDI (mGy) COMPARISON: [facility] – [place], [place] HEAD W/O CONTRAST, 06/14/2018. . TECHNIQUE: CT of the head without contrast. Using automated exposure control and adjustment of the mA and/or kV according to patient size, radiation dose was kept as low as reasonably achievable to ob tain optimal diagnostic quality images. DICOM format image data is available electronically for revi ew and comparison. FINDINGS: Cerebrum: The ventricles are normal for age. No evidence of midline shift, mass lesion, hemorrhage or acute infarction. No extraaxial fluid collections are seen. Posterior Fossa: The cerebellum and brainstem are intact. The 4th ventricle is midline. The cerebe llopontine angle is unremarkable. Extracranial: The visualized portion of the orbits is intact. Skull: The calvaria is intact. No evidence of skull fracture. CONCLUSION: 1. Stable evaluation. 2. No evidence of acute infarct, hemorrhage, mass or edema. . Electronically signed by: Amos Slade MD 07/09/2018 8:29 AM EST
[2018-07-09 08:35] LABS: INR 2.6 Ratio; Prothrombin Time 26.5 sec (9.8-11.6)
[2018-07-09 09:25] LABS: Alanine Aminotransferase 58 U/L (12-78); Alkaline Phosphatase 107 U/L (45-117); Anion Gap 8 meq/L (5-15); Aspartate Aminotransferase 101 U/L (15-37); Blood Urea Nitrogen 47 mg/dL (7-18); Calcium 9.8 mg/dL (8.5-10.1); Carbon Dioxide 16.6 meq/L (21.0-32.0); Chloride 123 meq/L (98-107); Glomerular Filtration Rate 17 mL/min (>89); Glucose,Random 72 mg/dL (74-106); Potassium 6.1 meq/L (3.5-5.1); Sodium 148 meq/L (136-145); Troponin I 0.02 ng/mL (0.02-0.05)
[2018-07-09 09:26] LABS: Creatine Kinase 38 U/L (39-308); Total Protein 8.2 g/dL (6.4-8.2)
[2018-07-09 09:38] LABS: Eosinophils 1 % (0-4); Lymphocytes 8 % (9-44); Monocytes 4 % (0-8)
[2018-07-09 09:39] LABS: Acanthocytes 1+; Target Cells 1+
[2018-07-09 09:40] LABS: Ovalocytes 1+; Pappenheimer Bodies Present
[2018-07-09] MEDS ORDERED: Acetaminophen 325 MG Tablet PO PRN (11:15)
[2018-07-09 12:53] LABS: Bilirubin,Urine Moderate (Negative); Clarity,Urine Cloudy (Clear); Color,Urine Amber (Yellw/Straw); Glucose,Urine (UA) Negative (Negative); Hyaline Casts,Urine 1 /lpf (0-3); Leukocyte Esterase,Urine Negative (Negative); Mucus,Urine Few /lpf (Occasional); Nitrite,Urine Negative (Negative); Specific Gravity,Urine 1.018 (1.002-1.035); Squamous Epithelial Cell,Urine 3 /hpf (0-5)
[2018-07-09 12:58] LABS: Bacteria,Urine Few /hpf; Ictotest,Urine Positive (Negative)
[2018-07-09 13:09] LABS: Amphetamine Screen,Urine Neg (Neg); Barbiturate Screen,Urine Neg (Neg); Cannabinoid Screen,Urine Neg (Neg); Cocaine Screen,Urine Neg (Neg); Opiate Screen,Urine Neg (Neg)
--- NOTE | 2018-07-09 13:25 | P.HP ---
History of Present Illness Primary Care Physician: UNKNOWN Chief Complaint: Altered mental status change History of Present Illness: 63-year-old -[place] male with a history of cirrhosis, hepatitis C, and recent history of GI bleed was brought to the ED by EMS for evaluation of altered mental status change times 24 hours duration. Patient is unable to provide any history, and history is obtained from patient's . She states, over the past 48 hours patient has become lethargic however able to express himself on Tuesday. But since yesterday he has been more sleepy. Abnormal lab on admission include ammonia of 93. There has been no report of GI bleed, gross hematuria, or hemoptysis. Per patient's , he has had decreased appetite. Inpatient Certification: I certify that the inpatient services were ordered in accordance with Medicare regulations governing the order. This includes certification that hospital inpatient services are reasonable and necessary and in the case of services not specified as inpatient-only under 42 CFR 419.22(n), that they are appropriately provided as inpatient services in accordance to with the 2-midnight benchmark under 43 CFR 412.3(e) Estimated Total Length of Stay (Days): 2 Plans for Post Hospital Care: Not yet determined Review of Systems unobtainable due to mental status PMFSH - History History Provided By: Family Member - Medical History Medical History: Medical History (Last Reviewed 07/09/18 @ 07:45 by Yunier Mcdaniels) Atrial fibrillation Cirrhosis Esophageal varix bleeding Hepatic encephalopathy Hepatitis C History of abdominal paracentesis History of coagulopathy Noncompliance Prostate cancer Psoriasis - Surgical History Surgical History: Surgical History (Last Reviewed 07/09/18 @ 07:45 by Yunier Mcdaniels) H/O prostate biopsy History of esophagogastroduodenoscopy (EGD) History of abdominal paracentesis (Resolved) - Family History Family History: Family History (Last Reviewed 07/09/18 @ 07:45 by Yunier Mcdaniels) Mother Family history of acute myocardial infarction - Tobacco History Second Hand Smoke Exposure: No Smoking Status: Former smoker Tobacco Type: Cigarettes - Alcohol History How Often Do You Have a Drink Containing Alcohol: Unable to Obtain - Substance Use History Substance History: No History of Abuse - Travel History History of Recent Travel: No Recent Travel in the [place] Within the Last 8 Weeks: No Recent Travel Out of the Country Within the Last 8 Weeks: No - Immunization History Tetanus Immunization: >5 Years Medications and Allergies Active Medications: Active Medications Acetaminophen (Tylenol) 650 mg PO Q4H PRN PRN Reason: Temp > 100.4 Al Hydroxide/Mg Hydroxide (Milk Of Magnesia Liq) 30 ml PO Q12H PRN PRN Reason: Mild Constipation Sterile Water 700 ml/ (Lactulose 300 ml) 0 ml RECTAL ONCE ONE Stop: 07/09/18 14:01 Diltiazem HCl (Cardizem) 30 mg PO TID SHOSHANA Furosemide (Lasix) 40 mg PO DAILY SHOSHANA Lactulose (Lactulose Liq) 60 ml PO QID SHOSHANA Ondansetron HCl (Zofran Inj) 4 mg IV.PUSH Q6H PRN PRN Reason: NAUSEA OR VOMITING Pantoprazole Sodium (Protonix) 40 mg PO BID SHOSHANA Propranolol HCl (Inderal) 10 mg PO BID SHOSHANA Rifaximin (Xifaxan) 550 mg PO BID SHOSHANA Sodium Chloride (Ns Flush) 2 ml IV.FLUSH PRN PRN PRN Reason: FLUSH AFTER USING IV ACCESS Spironolactone (Aldactone) 100 mg PO DAILY SHOSHANA Allergies Allergy/AdvReac Type Severity Reaction Status Date / Time chlorhexidine Allergy Mild Rash Verified 07/09/18 07:46 Exam Vital signs: Vital Signs 07/09/18 07:12 07/09/18 07:36 07/09/18 07:41 Temperature 97.5 F L Pulse Rate 82 72 Respiratory Rate 20 14 14 Blood Pressure 114/59 L 113/59 L Pulse Oximetry 96 100 07/09/18 07:43 07/09/18 07:46 07/09/18 07:47 Temperature Pulse Rate 73 Respiratory Rate 14 Blood Pressure Pulse Oximetry 100 07/09/18 09:57 07/09/18 11:57 Temperature Pulse Rate 69 92 H Respiratory Rate 14 20 Blood Pressure 115/61 132/64 Pulse Oximetry 100 98 Intake & Output 07/08/18 07/09/18 07/09/18 19:59 06:59 18:59 Weight 113.398 kg Narrative: GENERAL: Lethargic SKIN: Warm and dry. HEAD: Atraumatic. Normocephalic. EYES: Pupils equal and round. No scleral icterus. No injection or drainage. ENT: No nasal bleeding or discharge. Mucous membranes pink and moist. NECK: Trachea midline. No JVD. CARDIOVASCULAR: Regular rate and rhythm. RESPIRATORY: No accessory muscle use. Clear to auscultation. Breath sounds equal bilaterally. GASTROINTESTINAL: Abdomen soft, non-tender, nondistended. Hepatic and splenic margins not palpable. MUSCULOSKELETAL: Extremities without clubbing, cyanosis, or edema. No obvious deformities. NEUROLOGICAL: Awake and alert. No obvious cranial nerve deficits. Motor grossly within normal limits. Five out of 5 muscle strength in the arms and legs. Results - Labs CBC & Chem 7: 07/09/18 07:50 07/09/18 07:50 Labs: Laboratory Results - last 24 hr 07/09/18 07/09/18 07/09/18 07:40 07:50 07:50 WBC 3.1 L RBC 2.73 L Hgb 9.4 L Hct 27.7 L MCV 101.5 H MCH 34.4 H MCHC 33.9 RDW 19.9 H Plt Count 66 L MPV 10.4 Prelim Diff (Auto) Slide review pending Neut % (Auto) 68.5 Lymph % (Auto) 14.1 [place] % (Auto) 15.4 H Eos % (Auto) 1.4 Baso % (Auto) 0.6 Neut # (Auto) 2.1 Lymph # (Auto) 0.4 L [place] # (Auto) 0.5 Eos # (Auto) 0.0 Baso # (Auto) 0.0 WBC Differential Manual diff final Seg Neuts % (Manual) 86 H Band Neuts % (Manual) 1 Lymphocytes % (Manual) 8 L Monocytes % (Manual) 4 Eosinophils % (Manual) 1 Abs Neuts (Manual) 2.7 Differential Comment . Platelet Estimate Low L Platelet Morphology Enlarged H Pappenheimer Bodies Present H Target Cells 1+ H Ovalocytes 1+ H Acanthocytes (Spur) 1+ H Keratocytes Occ H PT 26.5 H INR 2.6 APTT 66.0 H Sodium Potassium Chloride Carbon Dioxide Anion Gap BUN Creatinine Estimated GFR POC Glucose 72 Random Glucose Lactic Acid Calcium Total Bilirubin AST ALT Alkaline Phosphatase Ammonia Total Creatine Kinase Troponin I Total Protein Albumin TSH Salicylates Serum Alcohol 07/09/18 07/09/18 07/09/18 07:50 07:50 07:50 WBC RBC Hgb Hct MCV MCH MCHC RDW Plt Count MPV Prelim Diff (Auto) Neut % (Auto) Lymph % (Auto) [place] % (Auto) Eos % (Auto) Baso % (Auto) Neut # (Auto) Lymph # (Auto) [place] # (Auto) Eos # (Auto) Baso # (Auto) WBC Differential Seg Neuts % (Manual) Band Neuts % (Manual) Lymphocytes % (Manual) Monocytes % (Manual) Eosinophils % (Manual) Abs Neuts (Manual) Differential Comment Platelet Estimate Platelet Morphology Pappenheimer Bodies Target Cells Ovalocytes Acanthocytes (Spur) Keratocytes PT INR APTT Sodium 148 H Potassium 6.1 H Chloride 123 H Carbon Dioxide 16.6 L Anion Gap 8 BUN 47 H Creatinine 4.22 H Estimated GFR 17 L POC Glucose Random Glucose 72 L Lactic Acid 4.1 H* Calcium 9.8 Total Bilirubin 28.9 H AST 101 H ALT 58 Alkaline Phosphatase 107 Ammonia 95 H Total Creatine Kinase 38 L Troponin I 0.02 Total Protein 8.2 D Albumin 3.0 L TSH 1.040 Salicylates Serum Alcohol Less than 3 07/09/18 07/09/18 07:50 10:55 WBC RBC Hgb Hct MCV MCH MCHC RDW Plt Count MPV Prelim Diff (Auto) Neut % (Auto) Lymph % (Auto) [place] % (Auto) Eos % (Auto) Baso % (Auto) Neut # (Auto) Lymph # (Auto) [place] # (Auto) Eos # (Auto) Baso # (Auto) WBC Differential Seg Neuts % (Manual) Band Neuts % (Manual) Lymphocytes % (Manual) Monocytes % (Manual) Eosinophils % (Manual) Abs Neuts (Manual) Differential Comment Platelet Estimate Platelet Morphology Pappenheimer Bodies Target Cells Ovalocytes Acanthocytes (Spur) Keratocytes PT INR APTT Sodium Potassium Chloride Carbon Dioxide Anion Gap BUN Creatinine Estimated GFR POC Glucose Random Glucose Lactic Acid 3.5 H Calcium Total Bilirubin AST ALT Alkaline Phosphatase Ammonia Total Creatine Kinase Troponin I Total Protein Albumin TSH Salicylates Less than 1.7 L Serum Alcohol - Imaging Impressions Chest X-Ray 07/09/18 07:38 CONCLUSION: Stable chest without evidence of acute cardiopulmonary process. Head CT 07/09/18 07:38 CONCLUSION: 1. Stable evaluation. 2. No evidence of acute infarct, hemorrhage, mass or edema. . Caprini VTE Risk Assessment Caprini VTE Risk Assessment: Moderate/High Risk (score >= 2) VTE Pharmacological Exception Reason: End Stage Liver Disease Caprini Risk Assessment Model: Point Value = 1 Point Value = 2 Point Value = 3 Point Value = 5 Age 41-60 Minor surgery BMI > 25 kg/m2 Swollen legs Varicose veins or History of unexplained or recurrent spontaneous Oral contraceptives or hormone replacement Sepsis (< 1 month) Serious lung disease, including pneumonia (< 1 month) Abnormal pulmonary function Acute myocardial infarction Congestive heart failure (< 1 month) History of inflammatory bowel disease Medical patient at bed rest Age 61-74 Arthroscopic surgery Major open surgery (> 45 min) Laparoscopic surgery (> 45 min) Malignancy Confined to bed (> 72 hours) Immobilizing plaster cast Central venous access Age >= 75 History of VTE Family history of VTE Factor V Leiden Prothrombin [id number] Lupus anticoagulant Anticardiolipin antibodies Elevated serum homocysteine Heparin-induced thrombocytopenia Other congenital or acquired thrombophilia Stroke (< 1 month) Elective arthroplasty Hip, pelvis, or leg fracture Acute spinal cord injury (< 1 month) Prophylaxis Regimen: Total Risk Factor Score Risk Level Prophylaxis Regimen 0-1 Low Early ambulation 2 Moderate Order ONE of the following: *Sequential Compression Device (SCD) *Heparin 5000 units SQ BID 3-4 Higher Order ONE of the following medications: *Heparin 5000 units SQ TID *Enoxaparin/Lovenox 40 mg SQ daily (WT < 150 kg, CrCl > 30 mL/min) *Enoxaparin/Lovenox 30 mg SQ daily (WT < 150 kg, CrCl > 10-29 mL/min) *Enoxaparin/Lovenox 30 mg SQ BID (WT < 150 kg, CrCl > 30 mL/min) AND/OR *Sequential Compression Device (SCD) 5 or more Highest Order ONE of the following medications: *Heparin 5000 units SQ TID (Preferred with Epidurals) *Enoxaparin/Lovenox 40 mg SQ daily (WT < 150 kg, CrCl > 30 mL/min) *Enoxaparin/Lovenox 30 mg SQ daily (WT < 150 kg, CrCl > 10-29 mL/min) *Enoxaparin/Lovenox 30 mg SQ BID (WT < 150 kg, CrCl > 30 mL/min) AND *Sequential Compression Device (SCD) Assessment and Plan - Plan 63-year-old man with Hepatic encephalopathy History Cirrhosis/ascites History of Hepatitis C Ammonia of 93 on admission Administer rectally lactulose x1 now Check US Abdomen for evaluation for possible paracentesis Consult Gastroenterology Resume Lactulose/Aldactone/Lasix/Xifaxan Lactic acidosis Secondary to above Gentle IV fluid hydration and monitor lactic acid level Macrocytic anemia H&H currently stable Transfuse accordingly Thrombocytopenia Secondary to liver disease Monitor platelet counts and transfuse accordingly History of coagulopathy Secondary to liver disease Resume vitamin K History of atrial fibrillation Resume Cardizem Patient not a candidate for oral anticoagulation secondary to bleeding history, esophageal varices 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
[2018-07-09] MEDS ORDERED: Water Sterile for Irr Bot 700 ML, Lactulose Liq 300 ML RECTAL ONE ×2 (14:00)
[2018-07-09] MEDS: dilTIAZem 30 MG Tablet PO SCH ×2 (14:40→17:26)
[2018-07-09] MEDS: Sod Chloride 0.9% Inj 1,000 ML IV.CONT SCH (14:40)
--- NOTE | 2018-07-09 15:39 | US ---
EXAM DATE: 07/09/2018 3:26 PM EST AGE/SEX: 63 years / Male INDICATIONS: Ascites. CLINICAL DATA: This is the patient's subsequent encounter. Patient reports that signs and symptoms h ave been present for 1 week and indicates a pain score of 3/10. MEDICAL/SURGICAL HISTORY: . Cirrhosis. Esophageal varices. Hepatic encephalopathy. Hep C. Prost ate cancer. . Prostate biopsy. Paracentesis. EGD. COMPARISON: [facility] [place], [place] ABDOMEN LOWER LIMITED, 07/02/2018. . FINDINGS: Masses: None Fluid Collections: Moderate free fluid is identified in the peritoneal cavity. Other: Advanced cirrhosis of the liver is noted. CONCLUSION: 1. Moderate ascites. 2. Cirrhotic liver. Electronically signed by: Amos Slade MD 07/09/2018 3:37 PM EST
--- NOTE | 2018-07-09 16:54 | P.CONGI ---
History of Present Illness Consult date: 07/09/18 Chief complaint: hepatic encephalopathy, anemia History of Present Illness: This is a 63 yo M with known hepatitis C, treatment naive, liver Cirrhosis which decompensated complicated by ascites, hepatic encephalopathy, who required several hospital visits in the past yr, last visit was in June of this yr who was brought here for worsening AMS. Patient not able to provide any hx, stats patient hasn't been eating, no nausea, no vomiting, he is having minimal rectal bleed. Patient has been on Spironolactone, Lasix, and Lactulose. Per he has been taking his meds. He has lower extremity swelling. Patient has hx of previous alcohol but quit drinking yrs ago per . Patient hasn't been able to get tx for hep-C due to insurance and cost. US showed moderate ascites and cirrhotic liver. <Arely Kasper - Last Filed: 07/09/18 16:29> Review of Systems Comments: Not able to obtain, this was obtained from <Arely Kasper - Last Filed: 07/09/18 16:29> PMFSH - History History Provided By: Family Member - Medical History Medical History: Medical History (Last Reviewed 07/09/18 @ 07:45 by Yunier Mcdaniels) Atrial fibrillation Cirrhosis Esophageal varix bleeding Hepatic encephalopathy Hepatitis C History of abdominal paracentesis History of coagulopathy Noncompliance Prostate cancer Psoriasis - Surgical History Surgical History: Surgical History (Last Reviewed 07/09/18 @ 07:45 by Yunier Mcdaniels) H/O prostate biopsy History of esophagogastroduodenoscopy (EGD) History of abdominal paracentesis (Resolved) - Family History Family History: Family History (Last Reviewed 07/09/18 @ 07:45 by Yunier Mcdaniels) Mother Family history of acute myocardial infarction - Tobacco History Second Hand Smoke Exposure: No Smoking Status: Former smoker Tobacco Type: Cigarettes - Alcohol History How Often Do You Have a Drink Containing Alcohol: Unable to Obtain - Substance Use History Substance History: No History of Abuse - Travel History History of Recent Travel: No Recent Travel in the [place] Within the Last 8 Weeks: No Recent Travel Out of the Country Within the Last 8 Weeks: No - Immunization History Tetanus Immunization: >5 Years <Arely Kasper - Last Filed: 07/09/18 16:29> - Medical History Medical History: Medical History (Last Reviewed 07/09/18 @ 07:45 by Yunier Mcdaniels) Atrial fibrillation Cirrhosis Esophageal varix bleeding Hepatic encephalopathy Hepatitis C History of abdominal paracentesis History of coagulopathy Noncompliance Prostate cancer Psoriasis - Surgical History Surgical History: Surgical History (Last Reviewed 07/09/18 @ 07:45 by Yunier Mcdaniels) H/O prostate biopsy History of esophagogastroduodenoscopy (EGD) History of abdominal paracentesis (Resolved) - Family History Family History: Family History (Last Reviewed 07/09/18 @ 07:45 by Yunier Mcdaniels) Mother Family history of acute myocardial infarction <Vonnie Escobar - Last Filed: 07/09/18 19:20> Medications and Allergies Active Medications: Active Medications Acetaminophen (Tylenol) 650 mg PO Q4H PRN PRN Reason: Temp > 100.4 Al Hydroxide/Mg Hydroxide (Milk Of Magnesia Liq) 30 ml PO Q12H PRN PRN Reason: Mild Constipation Diltiazem HCl (Cardizem) 30 mg PO TID [facility] Last Admin: 07/09/18 14:40 Dose: 30 mg Furosemide (Lasix) 40 mg PO DAILY [facility] Sodium Chloride (Ns Inj) 1,000 mls @ 70 mls/hr IV.CONT .[id number] [facility] Last Admin: 07/09/18 14:40 Dose: 70 mls/hr Ceftriaxone Sodium 1,000 mg/ (Sodium Chloride) 100 mls @ 200 mls/hr IV.SIG Q24H [facility] Last Admin: 07/09/18 16:14 Dose: 200 mls/hr Lactulose (Lactulose Liq) 60 ml PO QID [facility] Last Admin: 07/09/18 13:09 Dose: 60 ml Ondansetron HCl (Zofran Inj) 4 mg IV.PUSH Q6H PRN PRN Reason: NAUSEA OR VOMITING Pantoprazole Sodium (Protonix) 40 mg PO BID [facility] Propranolol HCl (Inderal) 10 mg PO BID [facility] Rifaximin (Xifaxan) 550 mg PO BID [facility] Sodium Chloride (Ns Flush) 2 ml IV.FLUSH PRN PRN PRN Reason: FLUSH AFTER USING IV ACCESS Spironolactone (Aldactone) 100 mg PO DAILY [facility] <Arely Kasper - Last Filed: 07/09/18 16:29> Active Medications: Active Medications Acetaminophen (Tylenol) 650 mg PO Q4H PRN PRN Reason: Temp > 100.4 Al Hydroxide/Mg Hydroxide (Milk Of Magnesia Liq) 30 ml PO Q12H PRN PRN Reason: Mild Constipation Diltiazem HCl (Cardizem) 30 mg PO TID [facility] Last Admin: 07/09/18 17:26 Dose: 30 mg Furosemide (Lasix) 40 mg PO DAILY [facility] Sodium Chloride (Ns Inj) 1,000 mls @ 70 mls/hr IV.CONT .[id number] [facility] Last Admin: 07/09/18 14:40 Dose: 70 mls/hr Ceftriaxone Sodium 1,000 mg/ (Sodium Chloride) 100 mls @ 200 mls/hr IV.SIG Q24H [facility] Last Infusion: 07/09/18 17:46 Dose: Infused Lactulose (Lactulose Liq) 60 ml PO QID [facility] Last Admin: 07/09/18 17:26 Dose: 60 ml Ondansetron HCl (Zofran Inj) 4 mg IV.PUSH Q6H PRN PRN Reason: NAUSEA OR VOMITING Pantoprazole Sodium (Protonix) 40 mg PO BID [facility] Propranolol HCl (Inderal) 10 mg PO BID [facility] Rifaximin (Xifaxan) 550 mg PO BID [facility] Sodium Chloride (Ns Flush) 2 ml IV.FLUSH PRN PRN PRN Reason: FLUSH AFTER USING IV ACCESS Spironolactone (Aldactone) 100 mg PO DAILY [facility] <Vonnie Escobar - Last Filed: 07/09/18 19:20> Allergies Allergy/AdvReac Type Severity Reaction Status Date / Time chlorhexidine Allergy Mild Rash Verified 07/09/18 07:46 Exam Vital signs: Vital Signs 07/09/18 07:12 07/09/18 07:36 07/09/18 07:41 Temperature 97.5 F L Pulse Rate 82 72 Respiratory Rate 20 14 14 Blood Pressure 114/59 L 113/59 L Pulse Oximetry 96 100 07/09/18 07:43 07/09/18 07:46 07/09/18 07:47 Temperature Pulse Rate 73 Respiratory Rate 14 Blood Pressure Pulse Oximetry 100 07/09/18 09:57 07/09/18 11:57 07/09/18 14:35 Temperature Pulse Rate 69 92 H Respiratory Rate 14 20 16 Blood Pressure 115/61 132/64 Pulse Oximetry 100 98 Intake & Output 07/08/18 07/09/18 07/09/18 19:59 06:59 18:59 Weight 113.398 kg - Constitutional chronically ill appearing, somnolent - Routine HEENT Exam Head: Present: normocephalic Eye: Present: conjunctival icterus - Routine Neck Exam Present: supple - Routine Respiratory Exam Present: CTA bilaterally - Routine Cardiovascular Exam Present: RRR - Routine Abdominal Exam Present: normoactive bowel sounds, distended, organomegaly. Absent: tenderness - Routine Extremities Exam Present: edema - Routine Skin Exam Present: intact, dry - Routine Neurological Exam lethargic <Arely Kasper - Last Filed: 07/09/18 16:29> Vital signs: Vital Signs 07/09/18 07:12 07/09/18 07:36 07/09/18 07:41 Temperature 97.5 F L Pulse Rate 82 72 Respiratory Rate 20 14 14 Blood Pressure 114/59 L 113/59 L Pulse Oximetry 96 100 07/09/18 07:43 07/09/18 07:46 07/09/18 07:47 Temperature Pulse Rate 73 Respiratory Rate 14 Blood Pressure Pulse Oximetry 100 07/09/18 09:57 07/09/18 11:57 07/09/18 12:00 Temperature 97.5 F L Pulse Rate 69 92 H 85 Respiratory Rate 14 20 16 Blood Pressure 115/61 132/64 123/61 Pulse Oximetry 100 98 98 07/09/18 14:35 Temperature Pulse Rate Respiratory Rate 16 Blood Pressure Pulse Oximetry Intake & Output 07/09/18 07/09/18 07/10/18 06:59 18:59 06:59 Intake Total 100 / 100 Balance 100 / 100 Weight 113.398 kg Intake: IV 100 / 100 Rocephin Inj 1,000 MG In NS Inj 100 / 100 100 ML @ 200 mls/hr IV.SIG Q24H [facility] Rx#:[id number] <Vonnie Escobar - Last Filed: 07/09/18 19:20> Results - Labs CBC & Chem 7: 07/09/18 07:50 07/09/18 07:50 Labs: Laboratory Results - last 24 hr 07/09/18 07/09/18 07/09/18 07:40 07:50 07:50 WBC 3.1 L RBC 2.73 L Hgb 9.4 L Hct 27.7 L MCV 101.5 H MCH 34.4 H MCHC 33.9 RDW 19.9 H Plt Count 66 L MPV 10.4 Prelim Diff (Auto) Slide review pending Neut % (Auto) 68.5 Lymph % (Auto) 14.1 Douglas % (Auto) 15.4 H Eos % (Auto) 1.4 Baso % (Auto) 0.6 Neut # (Auto) 2.1 Lymph # (Auto) 0.4 L Douglas # (Auto) 0.5 Eos # (Auto) 0.0 Baso # (Auto) 0.0 WBC Differential Manual diff final Seg Neuts % (Manual) 86 H Band Neuts % (Manual) 1 Lymphocytes % (Manual) 8 L Monocytes % (Manual) 4 Eosinophils % (Manual) 1 Abs Neuts (Manual) 2.7 Differential Comment . Platelet Estimate Low L Platelet Morphology Enlarged H Pappenheimer Bodies Present H Target Cells 1+ H Ovalocytes 1+ H Acanthocytes (Spur) 1+ H Keratocytes Occ H PT 26.5 H INR 2.6 APTT 66.0 H Sodium Potassium Chloride Carbon Dioxide Anion Gap BUN Creatinine Estimated GFR POC Glucose 72 Random Glucose Lactic Acid Calcium Total Bilirubin AST ALT Alkaline Phosphatase Ammonia Total Creatine Kinase Troponin I Total Protein Albumin TSH Urine Color Urine Clarity Urine pH Ur Specific [place] Urine Protein Urine Glucose (UA) Urine Ketones Urine Occult Blood Urine Nitrate Urine Bilirubin Urine Ictotest Urine Urobilinogen Ur Leukocyte Esterase Urine RBC Urine WBC Ur Squamous Epith Cells Urine Bacteria Hyaline Casts Granular Casts Urine Mucus Micro UA Comment Ur Microscopic Review Urine Culture Comments Salicylates Urine Opiates Screen Ur Barbiturates Screen Ur Amphetamines Screen U Benzodiazepines Scrn Urine Cocaine Screen U Cannabinoids Screen Serum Alcohol 07/09/18 07/09/18 07/09/18 07:50 07:50 07:50 WBC RBC Hgb Hct MCV MCH MCHC RDW Plt Count MPV Prelim Diff (Auto) Neut % (Auto) Lymph % (Auto) Douglas % (Auto) Eos % (Auto) Baso % (Auto) Neut # (Auto) Lymph # (Auto) Douglas # (Auto) Eos # (Auto) Baso # (Auto) WBC Differential Seg Neuts % (Manual) Band Neuts % (Manual) Lymphocytes % (Manual) Monocytes % (Manual) Eosinophils % (Manual) Abs Neuts (Manual) Differential Comment Platelet Estimate Platelet Morphology Pappenheimer Bodies Target Cells Ovalocytes Acanthocytes (Spur) Keratocytes PT INR APTT Sodium 148 H Potassium 6.1 H Chloride 123 H Carbon Dioxide 16.6 L Anion Gap 8 BUN 47 H Creatinine 4.22 H Estimated GFR 17 L POC Glucose Random Glucose 72 L Lactic Acid 4.1 H* Calcium 9.8 Total Bilirubin 28.9 H AST 101 H ALT 58 Alkaline Phosphatase 107 Ammonia 95 H Total Creatine Kinase 38 L Troponin I 0.02 Total Protein 8.2 D Albumin 3.0 L TSH 1.040 Urine Color Urine Clarity Urine pH Ur Specific [place] Urine Protein Urine Glucose (UA) Urine Ketones Urine Occult Blood Urine Nitrate Urine Bilirubin Urine Ictotest Urine Urobilinogen Ur Leukocyte Esterase Urine RBC Urine WBC Ur Squamous Epith Cells Urine Bacteria Hyaline Casts Granular Casts Urine Mucus Micro UA Comment Ur Microscopic Review Urine Culture Comments Salicylates Urine Opiates Screen Ur Barbiturates Screen Ur Amphetamines Screen U Benzodiazepines Scrn Urine Cocaine Screen U Cannabinoids Screen Serum Alcohol Less than 3 07/09/18 07/09/18 07/09/18 07:50 10:55 12:00 WBC RBC Hgb Hct MCV MCH MCHC RDW Plt Count MPV Prelim Diff (Auto) Neut % (Auto) Lymph % (Auto) Douglas % (Auto) Eos % (Auto) Baso % (Auto) Neut # (Auto) Lymph # (Auto) Douglas # (Auto) Eos # (Auto) Baso # (Auto) WBC Differential Seg Neuts % (Manual) Band Neuts % (Manual) Lymphocytes % (Manual) Monocytes % (Manual) Eosinophils % (Manual) Abs Neuts (Manual) Differential Comment Platelet Estimate Platelet Morphology Pappenheimer Bodies Target Cells Ovalocytes Acanthocytes (Spur) Keratocytes PT INR APTT Sodium Potassium Chloride Carbon Dioxide Anion Gap BUN Creatinine Estimated GFR POC Glucose Random Glucose Lactic Acid 3.5 H Calcium Total Bilirubin AST ALT Alkaline Phosphatase Ammonia Total Creatine Kinase Troponin I Total Protein Albumin TSH Urine Color Urine Clarity Urine pH Ur Specific [place] Urine Protein Urine Glucose (UA) Urine Ketones Urine Occult Blood Urine Nitrate Urine Bilirubin Urine Ictotest Urine Urobilinogen Ur Leukocyte Esterase Urine RBC Urine WBC Ur Squamous Epith Cells Urine Bacteria Hyaline Casts Granular Casts Urine Mucus Micro UA Comment Ur Microscopic Review Urine Culture Comments Salicylates Less than 1.7 L Urine Opiates Screen Neg Ur Barbiturates Screen Neg Ur Amphetamines Screen Neg U Benzodiazepines Scrn Neg Urine Cocaine Screen Neg U Cannabinoids Screen Neg Serum Alcohol 07/09/18 12:00 WBC RBC Hgb Hct MCV MCH MCHC RDW Plt Count MPV Prelim Diff (Auto) Neut % (Auto) Lymph % (Auto) Douglas % (Auto) Eos % (Auto) Baso % (Auto) Neut # (Auto) Lymph # (Auto) Douglas # (Auto) Eos # (Auto) Baso # (Auto) WBC Differential Seg Neuts % (Manual) Band Neuts % (Manual) Lymphocytes % (Manual) Monocytes % (Manual) Eosinophils % (Manual) Abs Neuts (Manual) Differential Comment Platelet Estimate Platelet Morphology Pappenheimer Bodies Target Cells Ovalocytes Acanthocytes (Spur) Keratocytes PT INR APTT Sodium Potassium Chloride Carbon Dioxide Anion Gap BUN Creatinine Estimated GFR POC Glucose Random Glucose Lactic Acid Calcium Total Bilirubin AST ALT Alkaline Phosphatase Ammonia Total Creatine Kinase Troponin I Total Protein Albumin TSH Urine Color Odilia Urine Clarity Cloudy H Urine pH 5.0 Ur Specific [place] 1.018 Urine Protein 30 H Urine Glucose (UA) Negative Urine Ketones Negative Urine Occult Blood Negative Urine Nitrate Negative Urine Bilirubin Moderate H Urine Ictotest Positive H Urine Urobilinogen 2.0 H Ur Leukocyte Esterase Negative Urine RBC 1 Urine WBC 2 Ur Squamous Epith Cells 3 Urine Bacteria Few H Hyaline Casts 1 Granular Casts 46 Urine Mucus Few H Micro UA Comment Culture not ind Ur Microscopic Review Not Reportable Urine Culture Comments Culture not ind Salicylates Urine Opiates Screen Ur Barbiturates Screen Ur Amphetamines Screen U Benzodiazepines Scrn Urine Cocaine Screen U Cannabinoids Screen Serum Alcohol - Imaging Impressions Abdomen Ultrasound 07/09/18 00:00 CONCLUSION: 1. Moderate ascites. 2. Cirrhotic liver. Chest X-Ray 07/09/18 07:38 CONCLUSION: Stable chest without evidence of acute cardiopulmonary process. Head CT 07/09/18 07:38 CONCLUSION: 1. Stable evaluation. 2. No evidence of acute infarct, hemorrhage, mass or edema. . <Arely Kasper - Last Filed: 07/09/18 16:29> - Labs CBC & Chem 7: 07/09/18 07:50 07/09/18 07:50 Labs: Laboratory Results - last 24 hr 07/09/18 07/09/18 07/09/18 07:40 07:50 07:50 WBC 3.1 L RBC 2.73 L Hgb 9.4 L Hct 27.7 L MCV 101.5 H MCH 34.4 H MCHC 33.9 RDW 19.9 H Plt Count 66 L MPV 10.4 Prelim Diff (Auto) Slide review pending Neut % (Auto) 68.5 Lymph % (Auto) 14.1 Douglas % (Auto) 15.4 H Eos % (Auto) 1.4 Baso % (Auto) 0.6 Neut # (Auto) 2.1 Lymph # (Auto) 0.4 L Douglas # (Auto) 0.5 Eos # (Auto) 0.0 Baso # (Auto) 0.0 WBC Differential Manual diff final Seg Neuts % (Manual) 86 H Band Neuts % (Manual) 1 Lymphocytes % (Manual) 8 L Monocytes % (Manual) 4 Eosinophils % (Manual) 1 Abs Neuts (Manual) 2.7 Differential Comment . Platelet Estimate Low L Platelet Morphology Enlarged H Pappenheimer Bodies Present H Target Cells 1+ H Ovalocytes 1+ H Acanthocytes (Spur) 1+ H Keratocytes Occ H PT 26.5 H INR 2.6 APTT 66.0 H Sodium Potassium Chloride Carbon Dioxide Anion Gap BUN Creatinine Estimated GFR POC Glucose 72 Random Glucose Lactic Acid Calcium Total Bilirubin AST ALT Alkaline Phosphatase Ammonia Total Creatine Kinase Troponin I Total Protein Albumin TSH Urine Color Urine Clarity Urine pH Ur Specific [place] Urine Protein Urine Glucose (UA) Urine Ketones Urine Occult Blood Urine Nitrate Urine Bilirubin Urine Ictotest Urine Urobilinogen Ur Leukocyte Esterase Urine RBC Urine WBC Ur Squamous Epith Cells Urine Bacteria Hyaline Casts Granular Casts Urine Mucus Micro UA Comment Ur Microscopic Review Urine Culture Comments Salicylates Urine Opiates Screen Ur Barbiturates Screen Ur Amphetamines Screen U Benzodiazepines Scrn Urine Cocaine Screen U Cannabinoids Screen Serum Alcohol 07/09/18 07/09/18 07/09/18 07:50 07:50 07:50 WBC RBC Hgb Hct MCV MCH MCHC RDW Plt Count MPV Prelim Diff (Auto) Neut % (Auto) Lymph % (Auto) Douglas % (Auto) Eos % (Auto) Baso % (Auto) Neut # (Auto) Lymph # (Auto) Douglas # (Auto) Eos # (Auto) Baso # (Auto) WBC Differential Seg Neuts % (Manual) Band Neuts % (Manual) Lymphocytes % (Manual) Monocytes % (Manual) Eosinophils % (Manual) Abs Neuts (Manual) Differential Comment Platelet Estimate Platelet Morphology Pappenheimer Bodies Target Cells Ovalocytes Acanthocytes (Spur) Keratocytes PT INR APTT Sodium 148 H Potassium 6.1 H Chloride 123 H Carbon Dioxide 16.6 L Anion Gap 8 BUN 47 H Creatinine 4.22 H Estimated GFR 17 L POC Glucose Random Glucose 72 L Lactic Acid 4.1 H* Calcium 9.8 Total Bilirubin 28.9 H AST 101 H ALT 58 Alkaline Phosphatase 107 Ammonia 95 H Total Creatine Kinase 38 L Troponin I 0.02 Total Protein 8.2 D Albumin 3.0 L TSH 1.040 Urine Color Urine Clarity Urine pH Ur Specific [place] Urine Protein Urine Glucose (UA) Urine Ketones Urine Occult Blood Urine Nitrate Urine Bilirubin Urine Ictotest Urine Urobilinogen Ur Leukocyte Esterase Urine RBC Urine WBC Ur Squamous Epith Cells Urine Bacteria Hyaline Casts Granular Casts Urine Mucus Micro UA Comment Ur Microscopic Review Urine Culture Comments Salicylates Urine Opiates Screen Ur Barbiturates Screen Ur Amphetamines Screen U Benzodiazepines Scrn Urine Cocaine Screen U Cannabinoids Screen Serum Alcohol Less than 3 07/09/18 07/09/18 07/09/18 07:50 10:55 12:00 WBC RBC Hgb Hct MCV MCH MCHC RDW Plt Count MPV Prelim Diff (Auto) Neut % (Auto) Lymph % (Auto) Douglas % (Auto) Eos % (Auto) Baso % (Auto) Neut # (Auto) Lymph # (Auto) Douglas # (Auto) Eos # (Auto) Baso # (Auto) WBC Differential Seg Neuts % (Manual) Band Neuts % (Manual) Lymphocytes % (Manual) Monocytes % (Manual) Eosinophils % (Manual) Abs Neuts (Manual) Differential Comment Platelet Estimate Platelet Morphology Pappenheimer Bodies Target Cells Ovalocytes Acanthocytes (Spur) Keratocytes PT INR APTT Sodium Potassium Chloride Carbon Dioxide Anion Gap BUN Creatinine Estimated GFR POC Glucose Random Glucose Lactic Acid 3.5 H Calcium Total Bilirubin AST ALT Alkaline Phosphatase Ammonia Total Creatine Kinase Troponin I Total Protein Albumin TSH Urine Color Urine Clarity Urine pH Ur Specific [place] Urine Protein Urine Glucose (UA) Urine Ketones Urine Occult Blood Urine Nitrate Urine Bilirubin Urine Ictotest Urine Urobilinogen Ur Leukocyte Esterase Urine RBC Urine WBC Ur Squamous Epith Cells Urine Bacteria Hyaline Casts Granular Casts Urine Mucus Micro UA Comment Ur Microscopic Review Urine Culture Comments Salicylates Less than 1.7 L Urine Opiates Screen Neg Ur Barbiturates Screen Neg Ur Amphetamines Screen Neg U Benzodiazepines Scrn Neg Urine Cocaine Screen Neg U Cannabinoids Screen Neg Serum Alcohol 07/09/18 12:00 WBC RBC Hgb Hct MCV MCH MCHC RDW Plt Count MPV Prelim Diff (Auto) Neut % (Auto) Lymph % (Auto) Douglas % (Auto) Eos % (Auto) Baso % (Auto) Neut # (Auto) Lymph # (Auto) Douglas # (Auto) Eos # (Auto) Baso # (Auto) WBC Differential Seg Neuts % (Manual) Band Neuts % (Manual) Lymphocytes % (Manual) Monocytes % (Manual) Eosinophils % (Manual) Abs Neuts (Manual) Differential Comment Platelet Estimate Platelet Morphology Pappenheimer Bodies Target Cells Ovalocytes Acanthocytes (Spur) Keratocytes PT INR APTT Sodium Potassium Chloride Carbon Dioxide Anion Gap BUN Creatinine Estimated GFR POC Glucose Random Glucose Lactic Acid Calcium Total Bilirubin AST ALT Alkaline Phosphatase Ammonia Total Creatine Kinase Troponin I Total Protein Albumin TSH Urine Color Odilia Urine Clarity Cloudy H Urine pH 5.0 Ur Specific [place] 1.018 Urine Protein 30 H Urine Glucose (UA) Negative Urine Ketones Negative Urine Occult Blood Negative Urine Nitrate Negative Urine Bilirubin Moderate H Urine Ictotest Positive H Urine Urobilinogen 2.0 H Ur Leukocyte Esterase Negative Urine RBC 1 Urine WBC 2 Ur Squamous Epith Cells 3 Urine Bacteria Few H Hyaline Casts 1 Granular Casts 46 Urine Mucus Few H Micro UA Comment Culture not ind Ur Microscopic Review Not Reportable Urine Culture Comments Culture not ind Salicylates Urine Opiates Screen Ur Barbiturates Screen Ur Amphetamines Screen U Benzodiazepines Scrn Urine Cocaine Screen U Cannabinoids Screen Serum Alcohol - Imaging Impressions Abdomen Ultrasound 07/09/18 00:00 CONCLUSION: 1. Moderate ascites. 2. Cirrhotic liver. Chest X-Ray 07/09/18 07:38 CONCLUSION: Stable chest without evidence of acute cardiopulmonary process. Head CT 07/09/18 07:38 CONCLUSION: 1. Stable evaluation. 2. No evidence of acute infarct, hemorrhage, mass or edema. . <Vonnie Escobar - Last Filed: 07/09/18 19:20> Assessment and Plan - Plan - Liver failure/Liver Cirrhosis which decompensated complicated by ascites, hepatic encephalopathy, MELD score 40 who required several hospital visits in the past yr, last visit was in June of this yr who was brought here for worsening AMS. Patient not able to provide any hx, stats patient hasn't been eating, no nausea, no vomiting, he is having minimal rectal bleed. Patient has been on Spironolactone, Lasix, and Lactulose. Per he has been taking his meds. He has lower extremity swelling. Patient has hx of previous alcohol but quit drinking yrs ago per . Patient hasn't been able to get tx for hep-C due to insurance and cost. US showed moderate ascites and cirrhotic liver. - Ascites- on Lasix 40 mg daily, Aldactone 100 mg, will order paracentesis ( diagnostic and therapeutic) - Hepatic encephalopathy ammonia 93- on lactulose, Xifaxan, lactulose enema ordered - Hepatitis C, treatment naive - hx of esophageal varices- on Propranolol Last EGD on 06/30/18 ---> Portal hypertensive gastropathy - Hypoalbuminemia, thrombocytopenia, and coagulopathy noted- secondary to cirrhosis Plan: NPO Insert NGT to help with PO intake and meds Paracentesis (diagnostic and therapeutic) Cont ceftriaxone Monitor LFTs Monitor coags Monitor Ammonia Xifaxan and Lactulose Spironolactone and Lasix Further recommendations based on clinical course Poor prognosis over all Pt has been seen and examined by myself and Dr. Escobar and this note is written on her behalf <Arely Kasper - Last Filed: 07/09/18 16:29> - Attending Attestation seen, examined agree with above <Vonnie Escobar - Last Filed: 07/09/18 19:20>
[2018-07-09] MEDS: Propranolol 10 MG Tablet PO SCH (20:27)
[2018-07-09] MEDS: rifAXIMin 550 MG Tablet PO SCH (20:27)
--- NOTE | 2018-07-09 22:36 | ECG ---
Date Performed: 07/09/2018 Time Performed: 08:13:43 PTAGE: 63 years EKG: Sinus rhythm WITH OCCASIONAL SUPRAVENTRICULAR PREMATURE COMPLEXES MARKED LEFT AXIS DEVIATION POSSIBLE ANTERIOR MY OCARDIAL INFARCTION ABNORMAL ECG PREVIOUS TRACING : 07/01/2018 18.05 Since the previous tracing, no significant change noted DOCTOR: Ronald Asif Interpretating Date/Time 07/09/2018 22:36:16
[2018-07-10] MEDS: Sod Chloride 0.9% Inj 1,000 ML IV.CONT SCH (04:19)
[2018-07-10 04:50] LABS: Baso % (Auto) 0.7 % (0.0-2.0); Eos # (Auto) 0.1 th/mm3 (0.0-0.4); Eos % (Auto) 1.7 % (0.0-4.0); Hematocrit 24.6 % (39.0-51.0); Hemoglobin 8.6 gm/dL (13.0-17.0); Lymph # (Auto) 0.4 th/mm3 (1.0-4.8); Lymph % (Auto) 13.8 % (9.0-44.0); Mean Corpuscular Hemoglobin 34.4 pg (27.0-34.0); Mean Corpuscular Volume 98.3 fL (80.0-100.0); Mean Platelet Volume 9.6 fL (7.0-11.0); Mono # (Auto) 0.6 th/mm3 (0.0-0.9); Mono % (Auto) 19.1 % (0.0-8.0); Neut # (Auto) 2.1 th/mm3 (1.8-7.7); Neut % (Auto) 64.7 % (16.0-70.0); Platelet Count 60 th/mm3 (150-450); White Blood Count 3.3 th/mm3 (4.0-11.0)
[2018-07-10 05:12] LABS: Alanine Aminotransferase 58 U/L (12-78); Albumin 2.8 g/dL (3.4-5.0); Alkaline Phosphatase 99 U/L (45-117); Anion Gap 7 meq/L (5-15); Aspartate Aminotransferase 106 U/L (15-37); Blood Urea Nitrogen 52 mg/dL (7-18); Calcium 9.6 mg/dL (8.5-10.1); Carbon Dioxide 16.8 meq/L (21.0-32.0); Chloride 128 meq/L (98-107); Glomerular Filtration Rate 15 mL/min (>89); Glucose,Random 74 mg/dL (74-106); Potassium 5.9 meq/L (3.5-5.1); Sodium 152 meq/L (136-145); Total Protein 7.7 g/dL (6.4-8.2)
[2018-07-10 07:39] LABS: INR 2.9 Ratio
[2018-07-10 07:40] LABS: Prothrombin Time 29.1 sec (9.8-11.6)
[2018-07-10] MEDS: Sodium Chloride 0.45 % Inj 1,000 ML IV.CONT SCH ×3 (07:51→22:33)
[2018-07-10 08:28] LABS: Ovalocytes 1+
[2018-07-10] MEDS ORDERED: Furosemide 40 MG Tablet PO SCH (09:00)
[2018-07-10] MEDS: dilTIAZem 30 MG Tablet PO SCH ×3 (10:07→17:21)
[2018-07-10] MEDS: Spironolactone 50 MG Tablet PO SCH (10:07)
[2018-07-10] MEDS: Propranolol 10 MG Tablet PO SCH ×2 (10:07→20:28)
[2018-07-10] MEDS: rifAXIMin 550 MG Tablet PO SCH ×2 (10:08→20:28)
[2018-07-10] MEDS ORDERED: Phytonadione Inj 10 MG/ML Vial SQ ONE ×3 (10:43→22:57)
--- NOTE | 2018-07-10 10:51 | P.PNIM ---
Subjective Interval history: Follow-up altered mental status, hepatic encephalopathy, hyperammonemia, cirrhosis, ascites, hep C, lactic acidosis, thrombocytopenia, coagulopathy, A. fib and CKD. Patient seen and examined laying in bed, lethargic, does not respond to stimulus. Patient family identified herself to be the discuss concern and patient not getting his medication due to patient not waking up. The family stated that patient has been this way since he came home from the last admission in June. Patient had eating or taking any medications. Stated that high she brought her to the hospital. Patient worried about the NG tube in place again, recently had NG tube x2. Discussed the benefit and the risk, family understands. Patient worried about the procedure getting done. Physical Exam Vital signs: Vital Signs 07/09/18 11:57 07/09/18 12:00 07/09/18 14:35 Temperature 97.5 F L Pulse Rate 92 H 85 Respiratory Rate 20 16 16 Blood Pressure 132/64 123/61 Pulse Oximetry 98 98 07/09/18 20:00 07/10/18 00:00 07/10/18 04:00 Temperature 97.9 F 98 F 97.4 F L Pulse Rate 84 81 76 Respiratory Rate 17 19 19 Blood Pressure 129/76 145/76 H 131/72 Pulse Oximetry 98 98 98 07/10/18 08:00 Temperature 98.0 F Pulse Rate 83 Respiratory Rate 19 Blood Pressure 119/60 Pulse Oximetry 97 Intake & Output 07/09/18 07/10/18 07/10/18 18:59 06:59 18:59 Intake Total 100 / 100 1000 / 1000 200 / 200 Balance 100 / 100 1000 / 1000 200 / 200 Weight 113.398 kg 113.8 kg Intake: IV 100 / 100 1000 / 1000 200 / 200 NS Inj 1,000 ML @ 70 mls/hr IV. 1000 / 1000 200 / 200 CONT .[id number] [facility] Rx#:[id number] Rocephin Inj 1,000 MG In NS Inj 100 / 100 100 ML @ 200 mls/hr IV.SIG Q24H [facility] Rx#:[id number] Other: # Incontinent Bowel Movements 3 Narrative: GENERAL: Lethargic, sleeping/snooring on his right side, in the room SKIN: Warm and dry. HEAD: Atraumatic. Normocephalic. EYES: Pupils equal and round. No scleral icterus. No injection or drainage. ENT: No nasal bleeding or discharge. Mucous membranes pink and moist. NECK: Trachea midline. No JVD. CARDIOVASCULAR: Regular rate and rhythm. RESPIRATORY: No accessory muscle use. Clear to auscultation. Breath sounds equal bilaterally. GASTROINTESTINAL: Abdomen obese, soft, non-tender, nondistended. Hepatic and splenic margins not palpable. MUSCULOSKELETAL: Extremities without clubbing, cyanosis, or edema. No obvious deformities. Unable to assess strength due to lethargy NEUROLOGICAL: lethargic, No obvious cranial nerve deficits. PSYCHIATRIC: flat mood and affect Results - Labs CBC & Chem 7: 07/10/18 04:15 07/10/18 04:16 Laboratory Results - last 24 hr 07/09/18 07/09/18 07/09/18 10:55 12:00 12:00 WBC RBC Hgb Hct MCV MCH MCHC RDW Plt Count MPV Prelim Diff (Auto) Neut % (Auto) Lymph % (Auto) [place] % (Auto) Eos % (Auto) Baso % (Auto) Neut # (Auto) Lymph # (Auto) [place] # (Auto) Eos # (Auto) Baso # (Auto) WBC Differential Diff Scan Differential Comment Ovalocytes PT INR Sodium Potassium Chloride Carbon Dioxide Anion Gap BUN Creatinine Estimated GFR Random Glucose Lactic Acid 3.5 H Calcium Total Bilirubin AST ALT Alkaline Phosphatase Ammonia Total Protein Albumin Urine Color [place] Urine Clarity Cloudy H Urine pH 5.0 Ur Specific [place] 1.018 Urine Protein 30 H Urine Glucose (UA) Negative Urine Ketones Negative Urine Occult Blood Negative Urine Nitrate Negative Urine Bilirubin Moderate H Urine Ictotest Positive H Urine Urobilinogen 2.0 H Ur Leukocyte Esterase Negative Urine RBC 1 Urine WBC 2 Ur Squamous Epith Cells 3 Urine Bacteria Few H Hyaline Casts 1 Granular Casts 46 Urine Mucus Few H Micro UA Comment Culture not ind Ur Microscopic Review Not Reportable Urine Culture Comments Culture not ind Urine Opiates Screen Neg Ur Barbiturates Screen Neg Ur Amphetamines Screen Neg U Benzodiazepines Scrn Neg Urine Cocaine Screen Neg U Cannabinoids Screen Neg 07/10/18 07/10/18 07/10/18 04:15 04:15 04:15 WBC 3.3 L RBC 2.50 L Hgb 8.6 L Hct 24.6 L MCV 98.3 MCH 34.4 H MCHC 35.0 RDW 19.0 H Plt Count 60 L MPV 9.6 Prelim Diff (Auto) Slide review pending Neut % (Auto) 64.7 Lymph % (Auto) 13.8 [place] % (Auto) 19.1 H Eos % (Auto) 1.7 Baso % (Auto) 0.7 Neut # (Auto) 2.1 Lymph # (Auto) 0.4 L [place] # (Auto) 0.6 Eos # (Auto) 0.1 Baso # (Auto) 0.0 WBC Differential . Diff Scan Auto diff confirmed Differential Comment . Ovalocytes 1+ H PT INR Sodium Potassium Chloride Carbon Dioxide Anion Gap BUN Creatinine Estimated GFR Random Glucose Lactic Acid 2.9 H Calcium Total Bilirubin AST ALT Alkaline Phosphatase Ammonia 91 H Total Protein Albumin Urine Color Urine Clarity Urine pH Ur Specific [place] Urine Protein Urine Glucose (UA) Urine Ketones Urine Occult Blood Urine Nitrate Urine Bilirubin Urine Ictotest Urine Urobilinogen Ur Leukocyte Esterase Urine RBC Urine WBC Ur Squamous Epith Cells Urine Bacteria Hyaline Casts Granular Casts Urine Mucus Micro UA Comment Ur Microscopic Review Urine Culture Comments Urine Opiates Screen Ur Barbiturates Screen Ur Amphetamines Screen U Benzodiazepines Scrn Urine Cocaine Screen U Cannabinoids Screen 07/10/18 07/10/18 04:16 06:54 WBC RBC Hgb Hct MCV MCH MCHC RDW Plt Count MPV Prelim Diff (Auto) Neut % (Auto) Lymph % (Auto) [place] % (Auto) Eos % (Auto) Baso % (Auto) Neut # (Auto) Lymph # (Auto) [place] # (Auto) Eos # (Auto) Baso # (Auto) WBC Differential Diff Scan Differential Comment Ovalocytes PT 29.1 H INR 2.9 Sodium 152 H Potassium 5.9 H Chloride 128 H Carbon Dioxide 16.8 L Anion Gap 7 BUN 52 H Creatinine 4.66 H Estimated GFR 15 L Random Glucose 74 Lactic Acid Calcium 9.6 Total Bilirubin 29.1 H AST 106 H ALT 58 Alkaline Phosphatase 99 Ammonia Total Protein 7.7 Albumin 2.8 L Urine Color Urine Clarity Urine pH Ur Specific [place] Urine Protein Urine Glucose (UA) Urine Ketones Urine Occult Blood Urine Nitrate Urine Bilirubin Urine Ictotest Urine Urobilinogen Ur Leukocyte Esterase Urine RBC Urine WBC Ur Squamous Epith Cells Urine Bacteria Hyaline Casts Granular Casts Urine Mucus Micro UA Comment Ur Microscopic Review Urine Culture Comments Urine Opiates Screen Ur Barbiturates Screen Ur Amphetamines Screen U Benzodiazepines Scrn Urine Cocaine Screen U Cannabinoids Screen - Imaging Impressions Abdomen Ultrasound 07/09/18 00:00 CONCLUSION: 1. Moderate ascites. 2. Cirrhotic liver. Assessment and Plan - Assessment (1) Hyperammonemia Code(s): E72.20 - Disorder of urea cycle metabolism, unspecified Status: Chronic (2) Hepatic encephalopathy Code(s): K72.90 - Hepatic failure, unspecified without coma Status: Chronic (3) Liver disease, chronic, with cirrhosis Code(s): K74.60 - Unspecified cirrhosis of liver; K76.9 - Liver disease, unspecified Status: Chronic (4) Ascites of liver Code(s): R18.8 - Other ascites Status: Chronic (5) Altered mental status Code(s): R41.82 - Altered mental status, unspecified Status: Chronic - Plan 63-year-old -[place] male with a history of cirrhosis, hepatitis C, and recent history of GI bleed was brought to the ED by EMS for evaluation of altered mental status change times 24 hours duration. Hepatic encephalopathy History Cirrhosis/ascites History of Hepatitis C Altered Mental Status -Ammonia of 93 on admission -Administer rectally lactulose x1 now -Check US Abdomen for evaluation for possible paracentesis - Gastroenterology following, appreciate recommendation: plan for Paracentesis today, NG tube -Resume Lactulose/Aldactone/Lasix/Xifaxan -Give lasix IV, patient unable to take anything PO -start NG tube for medication and Nutrition - Lactic acidosis -Secondary to above -improving, was 4.1 on admission, 2.9 today 07/10/18 -continue Gentle IV fluid hydration and monitor lactic acid level Macrocytic anemia Thrombocytopenia,Secondary to liver disease -H&H currently stable -Transfuse accordingly -monitor CBC -Monitor platelet counts and transfuse accordingly History of coagulopathy Secondary to liver disease -Resume vitamin K -give Vit K sq now -recheck INR at 1300 History of atrial fibrillation -Resume Cardizem -Patient not a candidate for oral anticoagulation secondary to bleeding history , esophageal varices Acute on chronic chronic kidney disease stage III-IV -Gentle IV fluid hydration -Nephrology consultation as needed DVT Proph: SCD's and Zaheer Hose, Patient not a candidate for oral anticoagulation secondary to bleeding history, esophageal varices Code Status: full code Discussed Condition With: and nurse
[2018-07-10 14:14] LABS: INR 2.9 Ratio
[2018-07-10 14:15] LABS: Prothrombin Time 29.1 sec (9.8-11.6)
--- NOTE | 2018-07-10 14:49 | P.PNGI ---
Subjective Interval history: Patient is nonresponsive, family member currently in room Pending paracentesis but unable to perform secondary to coagulopathy PT/INR 2.9 Labs reviewed current hemoglobin 9.4 on admission now 8.6, WBC 3.3 <Eli Titus - Last Filed: 07/10/18 14:50> Physical Exam Vital signs: Vital Signs 07/09/18 20:00 07/10/18 00:00 07/10/18 04:00 Temperature 97.9 F 98 F 97.4 F L Pulse Rate 84 81 76 Respiratory Rate 17 19 19 Blood Pressure 129/76 145/76 H 131/72 Pulse Oximetry 98 98 98 07/10/18 08:00 07/10/18 12:00 Temperature 98.0 F 97.3 F L Pulse Rate 83 75 Respiratory Rate 19 17 Blood Pressure 119/60 130/61 Pulse Oximetry 97 98 Intake & Output 07/09/18 07/10/18 07/10/18 18:59 06:59 18:59 Intake Total 100 / 100 1000 / 1000 200 / 200 Balance 100 / 100 1000 / 1000 200 / 200 Weight 113.398 kg 113.8 kg Intake: IV 100 / 100 1000 / 1000 200 / 200 NS Inj 1,000 ML @ 70 mls/hr IV. 1000 / 1000 200 / 200 CONT .[id number] [facility] Rx#:[id number] Rocephin Inj 1,000 MG In NS Inj 100 / 100 100 ML @ 200 mls/hr IV.SIG Q24H [facility] Rx#:[id number] Other: # Incontinent Bowel Movements 3 - Constitutional moderate distress, disheveled, obtunded - Routine HEENT Exam Head: Present: facial swelling (Generalized) Eye: Present: conjunctival icterus ENT: Present: mucous membranes dry - Routine Respiratory Exam Present: accessory muscle use, prolonged expiratory phase - Routine Cardiovascular Exam Present: S1, S2 (Distant) - Routine Abdominal Exam Present: distended ( tympany), firm, organomegaly - Routine Skin Exam Present: jaundice (Mucous membranes) - Routine Neurological Exam Present: altered mental status <Eli Titus - Last Filed: 07/10/18 14:50> Vital signs: Vital Signs 07/09/18 20:00 07/10/18 00:00 07/10/18 04:00 Temperature 97.9 F 98 F 97.4 F L Pulse Rate 84 81 76 Respiratory Rate 17 19 19 Blood Pressure 129/76 145/76 H 131/72 Pulse Oximetry 98 98 98 07/10/18 08:00 07/10/18 12:00 07/10/18 16:00 Temperature 98.0 F 97.3 F L 97.0 F L Pulse Rate 83 75 76 Respiratory Rate 19 17 17 Blood Pressure 119/60 130/61 128/76 Pulse Oximetry 97 98 98 Intake & Output 07/09/18 07/10/18 07/10/18 18:59 06:59 18:59 Intake Total 100 / 100 1000 / 1000 300 / 300 Balance 100 / 100 1000 / 1000 300 / 300 Weight 113.398 kg 113.8 kg Intake: IV 100 / 100 1000 / 1000 300 / 300 NS Inj 1,000 ML @ 70 mls/hr IV. 1000 / 1000 200 / 200 CONT .[id number] [facility] Rx#:[id number] Rocephin Inj 1,000 MG In NS Inj 100 / 100 100 / 100 100 ML @ 200 mls/hr IV.SIG Q24H [facility] Rx#:[id number] Oral 0 / 0 Other: # Voids 7 # Bowel Movements 1 # Incontinent Bowel Movements 3 <LuzVonnie - Last Filed: 07/10/18 18:11> Results - Labs CBC & Chem 7: 07/10/18 04:15 07/10/18 04:16 Laboratory Results - last 24 hr 07/10/18 07/10/18 07/10/18 04:15 04:15 04:15 WBC 3.3 L RBC 2.50 L Hgb 8.6 L Hct 24.6 L MCV 98.3 MCH 34.4 H MCHC 35.0 RDW 19.0 H Plt Count 60 L MPV 9.6 Prelim Diff (Auto) Slide review pending Neut % (Auto) 64.7 Lymph % (Auto) 13.8 [place] % (Auto) 19.1 H Eos % (Auto) 1.7 Baso % (Auto) 0.7 Neut # (Auto) 2.1 Lymph # (Auto) 0.4 L [place] # (Auto) 0.6 Eos # (Auto) 0.1 Baso # (Auto) 0.0 WBC Differential . Diff Scan Auto diff confirmed Differential Comment . Ovalocytes 1+ H PT INR Sodium Potassium Chloride Carbon Dioxide Anion Gap BUN Creatinine Estimated GFR Random Glucose Lactic Acid 2.9 H Calcium Total Bilirubin AST ALT Alkaline Phosphatase Ammonia 91 H Total Protein Albumin 07/10/18 07/10/18 07/10/18 04:16 06:54 12:58 WBC RBC Hgb Hct MCV MCH MCHC RDW Plt Count MPV Prelim Diff (Auto) Neut % (Auto) Lymph % (Auto) [place] % (Auto) Eos % (Auto) Baso % (Auto) Neut # (Auto) Lymph # (Auto) [place] # (Auto) Eos # (Auto) Baso # (Auto) WBC Differential Diff Scan Differential Comment Ovalocytes PT 29.1 H 29.1 H INR 2.9 2.9 Sodium 152 H Potassium 5.9 H Chloride 128 H Carbon Dioxide 16.8 L Anion Gap 7 BUN 52 H Creatinine 4.66 H Estimated GFR 15 L Random Glucose 74 Lactic Acid Calcium 9.6 Total Bilirubin 29.1 H AST 106 H ALT 58 Alkaline Phosphatase 99 Ammonia Total Protein 7.7 Albumin 2.8 L - Imaging Impressions Abdomen Ultrasound 07/09/18 00:00 CONCLUSION: 1. Moderate ascites. 2. Cirrhotic liver. <Eli Titus - Last Filed: 07/10/18 14:50> - Labs CBC & Chem 7: 07/10/18 04:15 07/10/18 04:16 Laboratory Results - last 24 hr 07/10/18 07/10/18 07/10/18 04:15 04:15 04:15 WBC 3.3 L RBC 2.50 L Hgb 8.6 L Hct 24.6 L MCV 98.3 MCH 34.4 H MCHC 35.0 RDW 19.0 H Plt Count 60 L MPV 9.6 Prelim Diff (Auto) Slide review pending Neut % (Auto) 64.7 Lymph % (Auto) 13.8 [place] % (Auto) 19.1 H Eos % (Auto) 1.7 Baso % (Auto) 0.7 Neut # (Auto) 2.1 Lymph # (Auto) 0.4 L [place] # (Auto) 0.6 Eos # (Auto) 0.1 Baso # (Auto) 0.0 WBC Differential . Diff Scan Auto diff confirmed Differential Comment . Ovalocytes 1+ H PT INR Sodium Potassium Chloride Carbon Dioxide Anion Gap BUN Creatinine Estimated GFR Random Glucose Lactic Acid 2.9 H Calcium Total Bilirubin AST ALT Alkaline Phosphatase Ammonia 91 H Total Protein Albumin 07/10/18 07/10/18 07/10/18 04:16 06:54 12:58 WBC RBC Hgb Hct MCV MCH MCHC RDW Plt Count MPV Prelim Diff (Auto) Neut % (Auto) Lymph % (Auto) [place] % (Auto) Eos % (Auto) Baso % (Auto) Neut # (Auto) Lymph # (Auto) [place] # (Auto) Eos # (Auto) Baso # (Auto) WBC Differential Diff Scan Differential Comment Ovalocytes PT 29.1 H 29.1 H INR 2.9 2.9 Sodium 152 H Potassium 5.9 H Chloride 128 H Carbon Dioxide 16.8 L Anion Gap 7 BUN 52 H Creatinine 4.66 H Estimated GFR 15 L Random Glucose 74 Lactic Acid Calcium 9.6 Total Bilirubin 29.1 H AST 106 H ALT 58 Alkaline Phosphatase 99 Ammonia Total Protein 7.7 Albumin 2.8 L <Vonnie Escobar - Last Filed: 07/10/18 18:11> Assessment and Plan - Plan - Liver failure/Liver Cirrhosis which decompensated complicated by ascites, hepatic encephalopathy, MELD score 40 who required several hospital visits in the past yr, last visit was in June of this yr who was brought here for worsening AMS. Patient not able to provide any hx, stats patient hasn't been eating, no nausea, no vomiting, he is having minimal rectal bleed. Patient has been on Spironolactone, Lasix, and Lactulose. Per he has been taking his meds. He has lower extremity swelling. Patient has hx of previous alcohol but quit drinking yrs ago per . Patient hasn't been able to get tx for hep-C due to insurance and cost. US showed moderate ascites and cirrhotic liver. - Ascites- on Lasix 40 mg daily, Aldactone 100 mg, will order paracentesis ( diagnostic and therapeutic) - Hepatic encephalopathy ammonia 93- on lactulose, Xifaxan, lactulose enema ordered - Hepatitis C, treatment naive - hx of esophageal varices- on Propranolol Last EGD on 06/30/18 ---> Portal hypertensive gastropathy - Hypoalbuminemia, thrombocytopenia, and coagulopathy noted- secondary to cirrhosis 07/10/2018 patient continues to decline, nonresponsive to tactile or verbal stimuli. Paracentesis is pending but unable to perform secondary to patient's coagulopathy and INR 2.9. Poor prognosis, is concerned whether patient is going to get better or not. Palliative care consult ordered, doubt that patient will survive this hospital stay. Labs reviewed current bilirubin 29.1, ammonia level 91, AST 106 ALT 58, current hemoglobin count 8.6. No obvious bleeding noted Plan: NPO Monitor labs Supportive care to family Consult palliative care, end-stage liver disease, hepatic, Paracentesis pending, doubtful secondary to patient's coagulopathy Patient was seen per myself and Dr. Escobar, note was written on her behalf <Eli Titus - Last Filed: 07/10/18 14:50> - Attending Attestation seen, examined agree with above <Vonnie Escobar - Last Filed: 07/10/18 18:11>
--- NOTE | 2018-07-10 17:46 | P.PNPAL ---
Palliative care will meet with patient`s tomorrow morning to establish goals of medical treatment. .
[2018-07-10 21:13] LABS: INR 2.9 Ratio; Prothrombin Time 29.1 sec (9.8-11.6)
[2018-07-11] MEDS: Sodium Chloride 0.45 % Inj 1,000 ML IV.CONT SCH ×2 (09:09→14:17)
[2018-07-11] MEDS: Propranolol 10 MG Tablet PO SCH (09:22)
[2018-07-11] MEDS: dilTIAZem 30 MG Tablet PO SCH ×3 (09:22→18:57)
[2018-07-11] MEDS: Spironolactone 50 MG Tablet PO SCH (09:22)
[2018-07-11] MEDS: rifAXIMin 550 MG Tablet PO SCH (09:23)
--- NOTE | 2018-07-11 10:05 | P.PNIM ---
Subjective Interval history: Follow-up altered mental status, hepatic encephalopathy, hyperammonemia, cirrhosis, ascites, hep C, lactic acidosis, thrombocytopenia, coagulopathy, A. fib and CKD. Patient seen and examined laying in bed, nurse is at the bedside for lactulose administration. Patient is more awake and slight alertness as compared to yesterday, patient follows commands turns to the side when asked. Opens eyes when asked to. Answer simple questions. Nurse reported patient with few blood clots in the stool Physical Exam Vital signs: Vital Signs 07/10/18 12:00 07/10/18 16:00 07/10/18 20:00 Temperature 97.3 F L 97.0 F L 97.7 F Pulse Rate 75 76 72 Respiratory Rate 17 17 21 Blood Pressure 130/61 128/76 112/55 L Pulse Oximetry 98 98 98 07/11/18 00:00 07/11/18 04:36 07/11/18 08:00 Temperature 97.3 F L 97.5 F L 98 F Pulse Rate 76 73 73 Respiratory Rate 18 21 19 Blood Pressure 130/71 130/76 106/59 L Pulse Oximetry 99 100 99 Intake & Output 07/10/18 07/11/18 07/11/18 18:59 06:59 18:59 Intake Total 300 / 300 1000 / 1000 1000 / 1000 Balance 300 / 300 1000 / 1000 1000 / 1000 Weight 112 kg Intake: IV 300 / 300 1000 / 1000 1000 / 1000 NS Inj 1,000 ML @ 70 mls/hr IV. 200 / 200 CONT .[id number] [facility] Rx#:[id number] 1/2 Normal Saline Inj 1,000 ML 1000 / 1000 1000 / 1000 @ 70 mls/hr IV.CONT .[id number] [facility] Rx#:[id number] Rocephin Inj 1,000 MG In NS Inj 100 / 100 100 ML @ 200 mls/hr IV.SIG Q24H [facility] Rx#:[id number] Oral 0 / 0 Other: # Voids 7 4 Date of Last Bowel Movement 07/10/18 # Bowel Movements 1 Narrative: GENERAL: chronically ill looking male, awake and some alertness today, follows commands answer simple question, nurse in the room SKIN: Warm and dry. Jaundice, dry scaly skin HEAD: Atraumatic. Normocephalic. EYES: Pupils equal and round. No scleral icterus. No injection or drainage. jaundiced ENT: No nasal bleeding or discharge. Mucous membranes jaundiced and moist. NECK: Trachea midline. No JVD. CARDIOVASCULAR: Regular rate and rhythm. RESPIRATORY: No accessory muscle use. Clear to auscultation. Breath sounds equal bilaterally. GASTROINTESTINAL: Abdomen obese, soft, non-tender, distended. Hepatic and splenic margins not palpable. MUSCULOSKELETAL: Extremities without clubbing, cyanosis, or edema. No obvious deformities. Unable to assess strength due to lethargy NEUROLOGICAL: slighlty awake, slight alertness follows direction, No obvious cranial nerve deficits. PSYCHIATRIC: flat mood and affect Results - Labs CBC & Chem 7: 07/10/18 04:15 07/10/18 04:16 Laboratory Results - last 24 hr 07/10/18 07/10/18 07/11/18 12:58 19:21 06:28 PT 29.1 H 29.1 H 30.0 H INR 2.9 2.9 3.0 Assessment and Plan - Assessment (1) Hyperammonemia Code(s): E72.20 - Disorder of urea cycle metabolism, unspecified Status: Chronic (2) Hepatic encephalopathy Code(s): K72.90 - Hepatic failure, unspecified without coma Status: Chronic (3) Liver disease, chronic, with cirrhosis Code(s): K74.60 - Unspecified cirrhosis of liver; K76.9 - Liver disease, unspecified Status: Chronic (4) Ascites of liver Code(s): R18.8 - Other ascites Status: Chronic (5) Altered mental status Code(s): R41.82 - Altered mental status, unspecified Status: Chronic - Plan 63-year-old -[place] male with a history of cirrhosis, hepatitis C, and recent history of GI bleed was brought to the ED by EMS for evaluation of altered mental status change times 24 hours duration. Hepatic encephalopathy History Cirrhosis/ascites History of Hepatitis C Altered Mental Status -Ammonia of 93 on admission -Administer rectally lactulose x1 now -Check US Abdomen for evaluation for possible paracentesis - Gastroenterology following, appreciate recommendation: plan for Paracentesis today, NG tube -Resume Lactulose/Aldactone/Lasix/Xifaxan -Give lasix IV, patient unable to take anything PO -start NG tube for medication and Nutrition, failed NG tube placement yesterday , patient uncooperative/unable to swallow -ST consult for swallow eval: failed swallow eval -poor prognosis overall, discussed with , agreed with Palliative care -Palliative care consulted, appreciate recommendation -mental status with some improvement today, more awake and follows simple command Lactic acidosis -Secondary to above -improving, was 4.1 on admission, 2.9 today 07/10/18 -continue Gentle IV fluid hydration and monitor lactic acid level Macrocytic anemia Thrombocytopenia,Secondary to liver disease -H&H currently stable -Transfuse accordingly -monitor CBC -Monitor platelet counts and transfuse accordingly History of coagulopathy Secondary to liver disease -Resume vitamin K -give Vit K sq now -recheck INR 3.0 today -check Fibrinogen History of atrial fibrillation -Resume Cardizem -Patient not a candidate for oral anticoagulation secondary to bleeding history , esophageal varices 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 Code Status: full code Discussed Condition With: Follow-up altered mental status, hepatic encephalopathy, hyperammonemia, cirrhosis, ascites, hep C, lactic acidosis, thrombocytopenia, coagulopathy, A. fib and CKD. Patient seen and examined laying in bed, nurse at bedside, patient awake and more alert compared to yesterday's. Patient follows commands and answer simple question with garbled voice. Patient was able to turn on his side with verbal command. Nurse reported patient is passing a few blood clots in his stool, reported giving lactulose enema as patient unable to tolerate p.o.
--- NOTE | 2018-07-11 11:43 | P.CONPAL ---
Consult Service: Palliative Care Requesting Physician: Eli Titus Reason for Consult: a. To assist with evaluation and management of symptoms including: Pain, encephalopathy b. To assist medical decision maker(s) with: better understanding of current medical conditions; weighing benefits/burdens of medical treatment options; making medical treatment decisions. Primary Care Provider: UNKNOWN History of Present Illness History of Present Illness: Mr. Kaba is a 63-year-old male with a medical history significant for cirrhosis, hepatitis C, recurrent ascites, atrial fibrillation, esophageal varices, prostate cancer and psoriasis. Patient was brought to the emergency room by family on 07/09/18 to be evaluated for worsening lethargy and decreased oral intake. Family reported that patient had not been less communicative for the past 2 days prior to presenting to the emergency room. Patient is known to palliative care. He has had multiple hospitalizations in the past few months. ER course: * Vital signs: Temperature 97.5F, pulse 82, respirations 20, BP 114/59, O2 saturation 96% * EKG reveals sinus rhythm with occasional supraventricular premature complexes marked left axis deviation possible anterior myocardial infarction. * Laboratory workup revealed WBC 3.1, hemoglobin 9.4, hematocrit 27.7, platelet count 66, PT 26.5, INR 2.6, APTT 66.0, sodium 148, potassium 6.1, BUN/ creatinine 47/4.22, random glucose 72, lactic acid 4.1, calcium 9.8, total bilirubin 28.9, AST 101, ALT 58, ammonia 95, total creatinine kinase 38, troponin 0 0.02, total protein 8.2, albumin 3.0, TSH 1.040, toxicology-negative * Chest x-ray revealed stable chest with no acute cardiopulmonary process * Head CT revealed no evidence of acute infarct, hemorrhage, mass or edema * Abdomen ultrasound revealed moderate ascites and cirrhotic liver * Urinalysis negative for leukocyte esterase and nitrates GI Dr. Escobar consulted on 07/09/18 to evaluate and manage patient with hepatic encephalopathy, anemia with a MELD score of 40, recommended n.p.o., insertion of nasogastric tube, diagnostic and therapeutic paracentesis and to monitor LFTs , anemia and coags. Per GI notes patient his poor prognosis overall. Paracentesis pending secondary to coagulopathy. Speech therapy consulted, recommended n.p.o. palliative care consulted to assist with symptom management and establishment of goals of medical treatment. Laboratory workup today revealing PT 30.0, INR 3.0. Patient seen and examined in his room in the presence of his family. Patient is minimally responsive. Unable to follow commands though family states that once in a while he will communicate with them. Reintroduced palliative care and its role in symptom management and establishment of goals of medical care. Readdressed CODE STATUS with patient's Etelvina Kaba in the presence of patient's daughter Homa Kaba and patient's stepdaughter. Patient's and daughter appropriately tearful at this time. They both state that it would not be beneficial for patient to be resuscitated in any event of cardiac arrest or be intubated in any event of respiratory distress given his end-stage liver disease and ongoing multiple comorbidities. Family have an understanding that patient's liver cirrhosis is progressive and he is reached the point where nothing much medically can be done to improve his quality of life. Patient's repeatedly stating that she has seen her suffering for a long time now and he has not showed any improvement in his health condition. Patient's family appears to be leaning towards transitioning to comfort care only but would like to speak to GI physician Dr. Escobar regarding prognosis. Allowed family time to discuss goals of medical treatment in privacy per their request. After Dr. Escobar and Dr. Manzano updated patient's family on his current medical condition, patient spouse with the support of patient's daughter elected DNR/ DNI and requested hospice services. Hospice consult placed. Function/Cognitive Trajectory: Patient was diagnosed with hepatitis about a year or two ago but at that time he was undergoing radiation treatment for prostate cancer. Due to insurance and financial issues he was not able to follow up with treatment. He has never had workup for liver transplant. Patient was hospitalized in February 2018 at [facility] in [place], [place]- underwent paracentesis with removal of 7 liters of peritoneal fluid. Patient has had about 3 hospitalizations and 2 emergency room visits since March 2018 at [facility]. Patient is independent of all his ADLs, he is ambulatory and is able to verbalize his needs. According to his spouse, he has been very fatigued and not able to participate in activities like fishing he usually enjoyed. He has lost some weight, unable to quantify. Patient was hospitalized from 06/12/18-06/28/18 and was treated for Klebsiella pneumonia urinary tract infection, acute renal failure, recurrent ascites with ultrasound-guided paracentesis. During that hospitalization his MELD Score was 34. He also had EGD with band ligation of varices. Patient was readmitted to the hospital on 06/29/18-07/06/18 with complaints of blood streaked stool and gross hematochezia. Patient underwent EGD on 06/30 with no active signs of bleeding-showed portal hypertensive gastropathy. 07/01 suspected to have hemorrhoid bleeding due to coagulopathy. 07/02 anemic requiring transfusion of 3 units PRBC. Patient spouse reported increased fatigue, weakness and decreased oral intake. She also reported increased confusion. Review of Systems Constitutional: Reports fatigue, Reports weakness, Reports weight loss, Denies fever(s) Eyes: Denies blurry vision Ears, Nose, Mouth, and Throat: Reports dry mouth, Denies abnormal hearing, Denies nasal congestion, Denies nasal discharge Cardiovascular: Reports leg swelling, Reports rapid, pounding, or irregular heartbeat Respiratory: Denies cough, Denies shortness of breath Gastrointestinal: Reports bright, red blood in stools, Reports difficulty swallowing, Reports incontinent of stools, Reports loose stools, Denies nausea, Denies vomiting Genitourinary: Reports urinary incontinence, Denies blood in urine Musculoskeletal: Reports decreased muscle mass Skin/Breast: Reports change in skin color, Reports unusual bruising Neurologic: Reports abnormal speech, Reports confusion, Denies abnormal hearing , Denies frequent falls, Denies loss of vision Psychiatric: Reports change in appetite (Decreased), Reports confusion Endocrine: Denies increased urination Hematologic/Lymphatic: Reports easy bleeding, Reports easy bruising Review of system obtained from family, EMR and clinical observation . [facility] - History History Provided By: Family Member - Medical History Medical History: Medical History (Last Updated 07/11/18 @ 10:52 by Marley Lopez) Urinary tract infection Atrial fibrillation Cirrhosis Esophageal varix bleeding Hepatic encephalopathy Hepatitis C History of abdominal paracentesis History of coagulopathy Prostate cancer Psoriasis - Surgical History Surgical History: Surgical History (Last Reviewed 07/09/18 @ 07:45 by Yunier Mcdaniels) H/O prostate biopsy History of esophagogastroduodenoscopy (EGD) History of abdominal paracentesis (Resolved) - Family History Family History: Family History (Last Reviewed 07/09/18 @ 07:45 by Yunier Mcdaniels) Mother Family history of acute myocardial infarction - Tobacco History Second Hand Smoke Exposure: No Smoking Status: Former smoker Tobacco Type: Cigarettes - Alcohol History How Often Do You Have a Drink Containing Alcohol: Unable to Obtain - Substance Use History Substance History: No History of Abuse - Travel History History of Recent Travel: No Recent Travel in the [place] Within the Last 8 Weeks: No Recent Travel Out of the Country Within the Last 8 Weeks: No - Immunization History Tetanus Immunization: >5 Years Medications and Allergies Active Medications: Active Medications Acetaminophen (Tylenol) 650 mg PO Q4H PRN PRN Reason: Temp > 100.4 Al Hydroxide/Mg Hydroxide (Milk Of Magnesia Liq) 30 ml PO Q12H PRN PRN Reason: Mild Constipation Diltiazem HCl (Cardizem) 30 mg PO TID [facility] Last Admin: 07/11/18 09:22 Dose: Not Given Furosemide (Lasix) 40 mg PO DAILY [facility] Last Admin: 07/10/18 10:08 Dose: Not Given Furosemide (Lasix Inj) 40 mg IV.PUSH DAILY [facility] Last Admin: 07/11/18 09:04 Dose: 40 mg Ceftriaxone Sodium 1,000 mg/ (Sodium Chloride) 100 mls @ 200 mls/hr IV.SIG Q24H [facility] Last Infusion: 07/10/18 17:21 Dose: Infused Sodium Chloride (1/2 Normal Saline Inj) 1,000 mls @ 70 mls/hr IV.CONT .[id number] [facility] Last Admin: 07/11/18 09:09 Dose: 70 mls/hr Lactulose (Lactulose Liq) 60 ml RECTAL QID [facility] Last Admin: 07/11/18 09:03 Dose: 60 ml Ondansetron HCl (Zofran Inj) 4 mg IV.PUSH Q6H PRN PRN Reason: NAUSEA OR VOMITING Pantoprazole Sodium (Protonix) 40 mg PO BID [facility] Last Admin: 07/11/18 09:22 Dose: Not Given Propranolol HCl (Inderal) 10 mg PO BID [facility] Last Admin: 07/11/18 09:22 Dose: Not Given Rifaximin (Xifaxan) 550 mg PO BID [facility] Last Admin: 07/11/18 09:23 Dose: Not Given Sodium Chloride (Ns Flush) 2 ml IV.FLUSH PRN PRN PRN Reason: FLUSH AFTER USING IV ACCESS Last Admin: 07/10/18 10:35 Dose: 2 ml Spironolactone (Aldactone) 100 mg PO DAILY [facility] Last Admin: 07/11/18 09:22 Dose: Not Given Allergies Allergy/AdvReac Type Severity Reaction Status Date / Time chlorhexidine Allergy Mild Rash Verified 07/09/18 07:46 Advance Directives Advance Directives Date on File: 06/21/18 (Copy on EMR) Living Will: No Healthcare Surrogate: Yes Health Care Surrogate Name and Number: HCS: Etelvina Kaba [phone] Alt: Homa Kaba [phone] Roller Operator: No Today's verbally stated goals: Patient is encephalopathic. Family/friends goals: Family would like to forego any further aggressive treatment and transition patient to comfort care only through hospice services. . Ethical and Legal Issues: None identified at this time . Physical Exam Vital Signs: Vital Signs - 24 hr 07/10/18 12:00 07/10/18 16:00 07/10/18 20:00 Temperature 97.3 F L 97.0 F L 97.7 F Pulse Rate 75 76 72 Respiratory Rate 17 17 21 Blood Pressure 130/61 128/76 112/55 L Pulse Oximetry 98 98 98 07/11/18 00:00 07/11/18 04:36 07/11/18 08:00 Temperature 97.3 F L 97.5 F L 98 F Pulse Rate 76 73 73 Respiratory Rate 18 21 19 Blood Pressure 130/71 130/76 106/59 L Pulse Oximetry 99 100 99 I&O: Intake & Output 07/09/18 07/10/18 07/11/18 07/12/18 06:59 06:59 06:59 06:59 Intake Total 1100 / 1100 1300 / 1300 1000 / 1000 Balance 1100 / 1100 1300 / 1300 1000 / 1000 Weight 113.8 kg 112 kg Physical Exam: CONSTITUTIONAL/GENERAL: This is a chronically ill looking patient, in no apparent distress. TUBES/LINES/DRAINS: PIV, SKIN: Ashy Dry skin, or lesions. Ecchymoses on upper extremities. No wounds seen anteriorly. Skin temperature appropriate. Not diaphoretic. HEAD: Atraumatic. Normocephalic. EYES: Pupils equal and round and reactive. Extraocular motions intact. scleral icterus. No injection or drainage. Fundi not examined. ENT: Hearing grossly normal. Nose without bleeding or purulent drainage. Dry lips NECK: Trachea midline. Supple, nontender. CARDIOVASCULAR: Regular rate and rhythm without murmurs, gallops, or rubs. No JVD. Peripheral pulses symmetric. RESPIRATORY/CHEST: Symmetric, unlabored respirations. Diminished in the bases. Rhonchi to auscultation, no wheezing GASTROINTESTINAL: Abdomen soft, non-tender, distended. No guarding. Bowel sounds present. GENITOURINARY: Without palpable bladder distension. MUSCULOSKELETAL: Extremities without clubbing, cyanosis, or edema. No joint tenderness or effusion noted. No calf tenderness. No mottling or clubbing. LYMPHATICS: Did not assess NEUROLOGICAL: Sleepy, arousable. Oriented to self only, mumbling nonsensical words. Not following simple commands. PSYCHIATRIC: No obvious anxiety/depression. no apparent hallucinations or other psychotic thought process. Diagnostic Tests Laboratory: Laboratory Results - last 72 hr 07/09/18 07/09/18 07/09/18 07:40 07:50 07:50 WBC 3.1 L RBC 2.73 L Hgb 9.4 L Hct 27.7 L MCV 101.5 H MCH 34.4 H MCHC 33.9 RDW 19.9 H Plt Count 66 L MPV 10.4 Prelim Diff (Auto) Slide review pending Neut % (Auto) 68.5 Lymph % (Auto) 14.1 [place] % (Auto) 15.4 H Eos % (Auto) 1.4 Baso % (Auto) 0.6 Neut # (Auto) 2.1 Lymph # (Auto) 0.4 L [place] # (Auto) 0.5 Eos # (Auto) 0.0 Baso # (Auto) 0.0 WBC Differential Manual diff final Diff Scan Seg Neuts % (Manual) 86 H Band Neuts % (Manual) 1 Lymphocytes % (Manual) 8 L Monocytes % (Manual) 4 Eosinophils % (Manual) 1 Abs Neuts (Manual) 2.7 Differential Comment . Platelet Estimate Low L Platelet Morphology Enlarged H Pappenheimer Bodies Present H Target Cells 1+ H Ovalocytes 1+ H Acanthocytes (Spur) 1+ H Keratocytes Occ H PT 26.5 H INR 2.6 APTT 66.0 H Sodium Potassium Chloride Carbon Dioxide Anion Gap BUN Creatinine Estimated GFR POC Glucose 72 Random Glucose Lactic Acid Calcium Total Bilirubin AST ALT Alkaline Phosphatase Ammonia Total Creatine Kinase Troponin I Total Protein Albumin TSH Urine Color Urine Clarity Urine pH Ur Specific Royal Urine Protein Urine Glucose (UA) Urine Ketones Urine Occult Blood Urine Nitrate Urine Bilirubin Urine Ictotest Urine Urobilinogen Ur Leukocyte Esterase Urine RBC Urine WBC Ur Squamous Epith Cells Urine Bacteria Hyaline Casts Granular Casts Urine Mucus Micro UA Comment Ur Microscopic Review Urine Culture Comments Salicylates Urine Opiates Screen Ur Barbiturates Screen Ur Amphetamines Screen U Benzodiazepines Scrn Urine Cocaine Screen U Cannabinoids Screen Serum Alcohol 07/09/18 07/09/18 07/09/18 07:50 07:50 07:50 WBC RBC Hgb Hct MCV MCH MCHC RDW Plt Count MPV Prelim Diff (Auto) Neut % (Auto) Lymph % (Auto) [place] % (Auto) Eos % (Auto) Baso % (Auto) Neut # (Auto) Lymph # (Auto) [place] # (Auto) Eos # (Auto) Baso # (Auto) WBC Differential Diff Scan Seg Neuts % (Manual) Band Neuts % (Manual) Lymphocytes % (Manual) Monocytes % (Manual) Eosinophils % (Manual) Abs Neuts (Manual) Differential Comment Platelet Estimate Platelet Morphology Pappenheimer Bodies Target Cells Ovalocytes Acanthocytes (Spur) Keratocytes PT INR APTT Sodium 148 H Potassium 6.1 H Chloride 123 H Carbon Dioxide 16.6 L Anion Gap 8 BUN 47 H Creatinine 4.22 H Estimated GFR 17 L POC Glucose Random Glucose 72 L Lactic Acid 4.1 H* Calcium 9.8 Total Bilirubin 28.9 H AST 101 H ALT 58 Alkaline Phosphatase 107 Ammonia 95 H Total Creatine Kinase 38 L Troponin I 0.02 Total Protein 8.2 D Albumin 3.0 L TSH 1.040 Urine Color Urine Clarity Urine pH Ur Specific Royal Urine Protein Urine Glucose (UA) Urine Ketones Urine Occult Blood Urine Nitrate Urine Bilirubin Urine Ictotest Urine Urobilinogen Ur Leukocyte Esterase Urine RBC Urine WBC Ur Squamous Epith Cells Urine Bacteria Hyaline Casts Granular Casts Urine Mucus Micro UA Comment Ur Microscopic Review Urine Culture Comments Salicylates Urine Opiates Screen Ur Barbiturates Screen Ur Amphetamines Screen U Benzodiazepines Scrn Urine Cocaine Screen U Cannabinoids Screen Serum Alcohol Less than 3 07/09/18 07/09/18 07/09/18 07:50 10:55 12:00 WBC RBC Hgb Hct MCV MCH MCHC RDW Plt Count MPV Prelim Diff (Auto) Neut % (Auto) Lymph % (Auto) [place] % (Auto) Eos % (Auto) Baso % (Auto) Neut # (Auto) Lymph # (Auto) [place] # (Auto) Eos # (Auto) Baso # (Auto) WBC Differential Diff Scan Seg Neuts % (Manual) Band Neuts % (Manual) Lymphocytes % (Manual) Monocytes % (Manual) Eosinophils % (Manual) Abs Neuts (Manual) Differential Comment Platelet Estimate Platelet Morphology Pappenheimer Bodies Target Cells Ovalocytes Acanthocytes (Spur) Keratocytes PT INR APTT Sodium Potassium Chloride Carbon Dioxide Anion Gap BUN Creatinine Estimated GFR POC Glucose Random Glucose Lactic Acid 3.5 H Calcium Total Bilirubin AST ALT Alkaline Phosphatase Ammonia Total Creatine Kinase Troponin I Total Protein Albumin TSH Urine Color Urine Clarity Urine pH Ur Specific Royal Urine Protein Urine Glucose (UA) Urine Ketones Urine Occult Blood Urine Nitrate Urine Bilirubin Urine Ictotest Urine Urobilinogen Ur Leukocyte Esterase Urine RBC Urine WBC Ur Squamous Epith Cells Urine Bacteria Hyaline Casts Granular Casts Urine Mucus Micro UA Comment Ur Microscopic Review Urine Culture Comments Salicylates Less than 1.7 L Urine Opiates Screen Neg Ur Barbiturates Screen Neg Ur Amphetamines Screen Neg U Benzodiazepines Scrn Neg Urine Cocaine Screen Neg U Cannabinoids Screen Neg Serum Alcohol 07/09/18 07/10/18 07/10/18 12:00 04:15 04:15 WBC 3.3 L RBC 2.50 L Hgb 8.6 L Hct 24.6 L MCV 98.3 MCH 34.4 H MCHC 35.0 RDW 19.0 H Plt Count 60 L MPV 9.6 Prelim Diff (Auto) Slide review pending Neut % (Auto) 64.7 Lymph % (Auto) 13.8 [place] % (Auto) 19.1 H Eos % (Auto) 1.7 Baso % (Auto) 0.7 Neut # (Auto) 2.1 Lymph # (Auto) 0.4 L [place] # (Auto) 0.6 Eos # (Auto) 0.1 Baso # (Auto) 0.0 WBC Differential . Diff Scan Auto diff confirmed Seg Neuts % (Manual) Band Neuts % (Manual) Lymphocytes % (Manual) Monocytes % (Manual) Eosinophils % (Manual) Abs Neuts (Manual) Differential Comment . Platelet Estimate Platelet Morphology Pappenheimer Bodies Target Cells Ovalocytes 1+ H Acanthocytes (Spur) Keratocytes PT INR APTT Sodium Potassium Chloride Carbon Dioxide Anion Gap BUN Creatinine Estimated GFR POC Glucose Random Glucose Lactic Acid Calcium Total Bilirubin AST ALT Alkaline Phosphatase Ammonia 91 H Total Creatine Kinase Troponin I Total Protein Albumin TSH Urine Color Odilia Urine Clarity Cloudy H Urine pH 5.0 Ur Specific Royal 1.018 Urine Protein 30 H Urine Glucose (UA) Negative Urine Ketones Negative Urine Occult Blood Negative Urine Nitrate Negative Urine Bilirubin Moderate H Urine Ictotest Positive H Urine Urobilinogen 2.0 H Ur Leukocyte Esterase Negative Urine RBC 1 Urine WBC 2 Ur Squamous Epith Cells 3 Urine Bacteria Few H Hyaline Casts 1 Granular Casts 46 Urine Mucus Few H Micro UA Comment Culture not ind Ur Microscopic Review Not Reportable Urine Culture Comments Culture not ind Salicylates Urine Opiates Screen Ur Barbiturates Screen Ur Amphetamines Screen U Benzodiazepines Scrn Urine Cocaine Screen U Cannabinoids Screen Serum Alcohol 07/10/18 07/10/18 07/10/18 04:15 04:16 06:54 WBC RBC Hgb Hct MCV MCH MCHC RDW Plt Count MPV Prelim Diff (Auto) Neut % (Auto) Lymph % (Auto) [place] % (Auto) Eos % (Auto) Baso % (Auto) Neut # (Auto) Lymph # (Auto) [place] # (Auto) Eos # (Auto) Baso # (Auto) WBC Differential Diff Scan Seg Neuts % (Manual) Band Neuts % (Manual) Lymphocytes % (Manual) Monocytes % (Manual) Eosinophils % (Manual) Abs Neuts (Manual) Differential Comment Platelet Estimate Platelet Morphology Pappenheimer Bodies Target Cells Ovalocytes Acanthocytes (Spur) Keratocytes PT 29.1 H INR 2.9 APTT Sodium 152 H Potassium 5.9 H Chloride 128 H Carbon Dioxide 16.8 L Anion Gap 7 BUN 52 H Creatinine 4.66 H Estimated GFR 15 L POC Glucose Random Glucose 74 Lactic Acid 2.9 H Calcium 9.6 Total Bilirubin 29.1 H AST 106 H ALT 58 Alkaline Phosphatase 99 Ammonia Total Creatine Kinase Troponin I Total Protein 7.7 Albumin 2.8 L TSH Urine Color Urine Clarity Urine pH Ur Specific Royal Urine Protein Urine Glucose (UA) Urine Ketones Urine Occult Blood Urine Nitrate Urine Bilirubin Urine Ictotest Urine Urobilinogen Ur Leukocyte Esterase Urine RBC Urine WBC Ur Squamous Epith Cells Urine Bacteria Hyaline Casts Granular Casts Urine Mucus Micro UA Comment Ur Microscopic Review Urine Culture Comments Salicylates Urine Opiates Screen Ur Barbiturates Screen Ur Amphetamines Screen U Benzodiazepines Scrn Urine Cocaine Screen U Cannabinoids Screen Serum Alcohol 07/10/18 07/10/18 07/11/18 12:58 19:21 06:28 WBC RBC Hgb Hct MCV MCH MCHC RDW Plt Count MPV Prelim Diff (Auto) Neut % (Auto) Lymph % (Auto) [place] % (Auto) Eos % (Auto) Baso % (Auto) Neut # (Auto) Lymph # (Auto) [place] # (Auto) Eos # (Auto) Baso # (Auto) WBC Differential Diff Scan Seg Neuts % (Manual) Band Neuts % (Manual) Lymphocytes % (Manual) Monocytes % (Manual) Eosinophils % (Manual) Abs Neuts (Manual) Differential Comment Platelet Estimate Platelet Morphology Pappenheimer Bodies Target Cells Ovalocytes Acanthocytes (Spur) Keratocytes PT 29.1 H 29.1 H 30.0 H INR 2.9 2.9 3.0 APTT Sodium Potassium Chloride Carbon Dioxide Anion Gap BUN Creatinine Estimated GFR POC Glucose Random Glucose Lactic Acid Calcium Total Bilirubin AST ALT Alkaline Phosphatase Ammonia Total Creatine Kinase Troponin I Total Protein Albumin TSH Urine Color Urine Clarity Urine pH Ur Specific Royal Urine Protein Urine Glucose (UA) Urine Ketones Urine Occult Blood Urine Nitrate Urine Bilirubin Urine Ictotest Urine Urobilinogen Ur Leukocyte Esterase Urine RBC Urine WBC Ur Squamous Epith Cells Urine Bacteria Hyaline Casts Granular Casts Urine Mucus Micro UA Comment Ur Microscopic Review Urine Culture Comments Salicylates Urine Opiates Screen Ur Barbiturates Screen Ur Amphetamines Screen U Benzodiazepines Scrn Urine Cocaine Screen U Cannabinoids Screen Serum Alcohol Result Diagrams: 07/10/18 04:15 07/10/18 04:16 Imaging: Abdomen Ultrasound 07/09/18 00:00 CONCLUSION: 1. Moderate ascites. 2. Cirrhotic liver. Chest X-Ray 07/09/18 07:38 CONCLUSION: Stable chest without evidence of acute cardiopulmonary process. Head CT 07/09/18 07:38 CONCLUSION: 1. Stable evaluation. 2. No evidence of acute infarct, hemorrhage, mass or edema. . Patient/Family Conference Family Conference Location: Bedside, Other (Waiting room on [address].) Issues Discussed: * Palliative care role, purpose, approach * Additional medical, psychosocial, and spiritual history * Patients general health, functional status, and cognitive changes in the months leading up to the current hospitalization * Patient/family understanding of the current medical problems * Patient/family understanding of prognosis * Patients goals of care as best understood from advance directives and/or conversations and/or values * Current medical treatment options and benefits/burdens of those options * Likely scenarios comparing ongoing aggressive care with a transition to comfort measures only * Questions answered to the best of my ability * Hospice philosophy and benefits introduced * Palliative care contact information provided Assessment and Plan - Disease Oriented Problem List (1) Liver disease, chronic, with cirrhosis (2) Hepatitis C (3) Atrial fibrillation (4) Hepatorenal syndrome (5) Hyperammonemia - Symptom Scale (1) Pain Comment: Patient has liver cirrhosis. Complains of abdominal pain. (2) Encephalopathy 0-10 Scale: Unable to quantify Comment: Patient has history of liver cirrhosis with recurrent ascites. Came in with c/o altered mentation and has hyperammonemia. Pertinent Non-Medical Issues: Psychosocial: Patient is originally from [place]. He relocated to [facility] with his in March 2018 after an opening for Elderly Housing became available. Patient is to his current Etelvina Kaba of 35 years and they have known each other for 45 years. 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 Patient has 1 biological daughter and one stepdaughter. Patient enjoyed fishing which he has not been able to do due to failing health. Spiritual:Patient is [employer] Legal:Completed healthcare surrogate form Ethical issues impacting care:None identified at this time. Important Contacts: Healthcare surrogate -spouse-Etelvina Kaba [phone] Alternate healthcare surrogate-daughter- Sesar Homa [phone] . Prognosis: Mr. Kaba is a 63-year-old male with a medical history significant for cirrhosis, hepatitis C, recurrent ascites, atrial fibrillation, esophageal varices, prostate cancer and psoriasis. Patient was brought to the emergency room by family on 07/09/18 to be evaluated for worsening lethargy and decreased oral intake. Clinical course complicated with encephalopathy, hepatorenal syndrome, coagulopathy and hyperammonemia. Given ongoing multiple comorbidities and end-stage liver disease with a MELD score of 40, patient remains at high risk for further complications, deterioration, decline and . If goals are comfort oriented patient would benefit from hospice services. . Code Status: No Code DNR Plan: PLAN: Legal decision maker: Patient is currently confused and not able to participate in medical decision making. It is not known with the patient will be able to regain capacity. Patient is a healthcare surrogate who is his spouse Sesar Main and his daughter Homa Kaba is his alternate health care surrogate. Goals: Patient spouse with the support of patient's daughters is decided to forego any further aggressive treatment and transition patient to comfort care only through hospice services. Patient is also been made DNR. Hospice consulted. CODE STATUS: No code DNR/DNI SYMPTOMS: * Pain: Patient his liver cirrhosis and is been of abdominal pain to his family. Abdomen is distended due to ascites. Patient is not able to undergo paracentesis due to high INR. Currently not showing any signs of pain. Continue to monitor. * Encephalopathy: Patient is end-stage liver disease. Came in with high ammonia levels. He is also in hepatorenal syndrome with elevated BUN and creatinine. Family has decided to forego any further aggressive treatment and transition patient to comfort care through hospice services. Palliative care will continue to follow the patient during hospital course as condition evolves, to assist patient/decision-maker with understanding of their medical conditions, weighing benefits/burdens of treatment options, for clarification of goals of treatment. Additionally will assist with any symptoms of palliative concern Appreciation Thank you for the opportunity to participate in the care of Eduardo Kaba. Attestation Attestation: To help prompt me to consider important information that might be impacting today's encounter and assessment, information from prior notes written by myself or my colleagues may have been "brought forward" into today's note. My signature on this note, however, is an attestation that I personally performed the exam, history, and/or decision-making noted today, and, unless otherwise indicated, the interactions with patient, family, and staff as well as the review of records all occurred today. I also attest that the listed assessment and stated plan reflect my best clinical judgment today based on the combination of historical information, prior notes, and today's exam/ interactions. When time spent is documented, it refers only to time spent today by the signer, or if indicated, combined time spent today by collaborating physician/nurse practitioner.
--- NOTE | 2018-07-11 13:54 | P.PNADD ---
Addendum to Inpatient Note Reason for Addendum: Additional Documentation (had a d/w the family at the bedside. patient with end-stage liver failure with poor prognosis- per my d/w the family and as per their request, hospice will be consulted and code status will be changed to ' no code'. this was d/w the RN and as well.)
--- NOTE | 2018-07-11 14:30 | P.PNGI ---
Subjective Interval history: Patient is obtunded but does arouse briefly to call in his name. Multiple family members in room and currently and some of the family members are talking to palliative care. <Eli Titus - Last Filed: 07/11/18 14:25> Physical Exam Vital signs: Vital Signs 07/10/18 16:00 07/10/18 20:00 07/11/18 00:00 Temperature 97.0 F L 97.7 F 97.3 F L Pulse Rate 76 72 76 Respiratory Rate 17 21 18 Blood Pressure 128/76 112/55 L 130/71 Pulse Oximetry 98 98 99 07/11/18 04:36 07/11/18 08:00 07/11/18 12:00 Temperature 97.5 F L 98 F 97.9 F Pulse Rate 73 73 70 Respiratory Rate 21 19 19 Blood Pressure 130/76 106/59 L 136/73 Pulse Oximetry 100 99 99 Intake & Output 07/10/18 07/11/18 07/11/18 18:59 06:59 18:59 Intake Total 300 / 300 1000 / 1000 1000 / 1000 Balance 300 / 300 1000 / 1000 1000 / 1000 Weight 112 kg Intake: IV 300 / 300 1000 / 1000 1000 / 1000 NS Inj 1,000 ML @ 70 mls/hr IV. 200 / 200 CONT .[id number] [facility] Rx#:[id number] 1/2 Normal Saline Inj 1,000 ML 1000 / 1000 1000 / 1000 @ 70 mls/hr IV.CONT .[id number] [facility] Rx#:[id number] Rocephin Inj 1,000 MG In NS Inj 100 / 100 100 ML @ 200 mls/hr IV.SIG Q24H [facility] Rx#:[id number] Oral 0 / 0 Other: # Voids 7 4 Date of Last Bowel Movement 07/10/18 07/11/18 # Bowel Movements 1 - Constitutional moderate distress, chronically ill appearing (End-stage liver failure), disheveled - Routine HEENT Exam Head: Present: normocephalic (Generalized facial edema) ENT: Present: mucous membranes dry - Routine Respiratory Exam Present: accessory muscle use, diminished air movement (Erratic respirations low volumes) - Routine Cardiovascular Exam Present: S1, S2 (Distant) - Routine Abdominal Exam Present: firm (Semifirm moderate to large distended abdomen, soft low-volume bowel sounds) <Eli Titus - Last Filed: 07/11/18 14:25> Vital signs: Vital Signs 07/10/18 20:00 07/11/18 00:00 07/11/18 04:36 Temperature 97.7 F 97.3 F L 97.5 F L Pulse Rate 72 76 73 Respiratory Rate 21 18 21 Blood Pressure 112/55 L 130/71 130/76 Pulse Oximetry 98 99 100 07/11/18 08:00 07/11/18 12:00 07/11/18 16:00 Temperature 98 F 97.9 F 97.9 F Pulse Rate 73 70 76 Respiratory Rate 19 19 19 Blood Pressure 106/59 L 136/73 124/68 Pulse Oximetry 99 99 98 Intake & Output 07/11/18 07/11/18 07/12/18 06:59 18:59 06:59 Intake Total 1000 / 1000 1810 / 1810 Balance 1000 / 1000 1810 / 1810 Weight 112 kg Intake: IV 1000 / 1000 1810 / 1810 1/2 Normal Saline Inj 1,000 ML 1000 / 1000 1710 / 1710 @ 70 mls/hr IV.CONT .[id number] [facility] Rx#:[id number] Rocephin Inj 1,000 MG In NS Inj 100 / 100 100 ML @ 200 mls/hr IV.SIG Q24H [facility] Rx#:[id number] Other: # Voids 4 3 Date of Last Bowel Movement 07/11/18 <Vonnie Escobar - Last Filed: 07/11/18 19:11> Results - Labs CBC & Chem 7: 07/10/18 04:15 07/10/18 04:16 Laboratory Results - last 24 hr 07/10/18 07/11/18 07/11/18 19:21 06:28 10:32 PT 29.1 H 30.0 H INR 2.9 3.0 Fibrinogen Lactic Acid Ammonia 71 H 07/11/18 07/11/18 13:00 13:00 PT INR Fibrinogen 52 L* Lactic Acid 3.1 H Ammonia <ArielaCapriEli Carroll - Last Filed: 07/11/18 14:25> - Labs CBC & Chem 7: 07/10/18 04:15 07/10/18 04:16 Laboratory Results - last 24 hr 07/10/18 07/11/18 07/11/18 19:21 06:28 10:32 PT 29.1 H 30.0 H INR 2.9 3.0 Fibrinogen Lactic Acid Ammonia 71 H 07/11/18 07/11/18 13:00 13:00 PT INR Fibrinogen 52 L* Lactic Acid 3.1 H Ammonia <Vonnie Escobar - Last Filed: 07/11/18 19:11> Assessment and Plan - Plan - Liver failure/Liver Cirrhosis which decompensated complicated by ascites, hepatic encephalopathy, MELD score 40 who required several hospital visits in the past yr, last visit was in June of this yr who was brought here for worsening AMS. Patient not able to provide any hx, stats patient hasn't been eating, no nausea, no vomiting, he is having minimal rectal bleed. Patient has been on Spironolactone, Lasix, and Lactulose. Per he has been taking his meds. He has lower extremity swelling. Patient has hx of previous alcohol but quit drinking yrs ago per . Patient hasn't been able to get tx for hep-C due to insurance and cost. US showed moderate ascites and cirrhotic liver. - Ascites- on Lasix 40 mg daily, Aldactone 100 mg, will order paracentesis ( diagnostic and therapeutic) - Hepatic encephalopathy ammonia 93- on lactulose, Xifaxan, lactulose enema ordered - Hepatitis C, treatment naive - hx of esophageal varices- on Propranolol Last EGD on 06/30/18 ---> Portal hypertensive gastropathy - Hypoalbuminemia, thrombocytopenia, and coagulopathy noted- secondary to cirrhosis 07/10/2018 patient continues to decline, nonresponsive to tactile or verbal stimuli. Paracentesis is pending but unable to perform secondary to patient's coagulopathy and INR 2.9. Poor prognosis, is concerned whether patient is going to get better or not. Palliative care consult ordered, doubt that patient will survive this hospital stay. Labs reviewed current bilirubin 29.1, ammonia level 91, AST 106 ALT 58, current hemoglobin count 8.6. No obvious bleeding noted 07/11/2018 patient's family and are now meeting with palliative care, for supportive care and options concerning patient's wishes and family's wishes. Currently continues in hepatic failure with multiple comorbidities including some encephalopathy, history of hepatitis C, ascites and high PT/INR and fibrinogen level which complicates any type of paracentesis to be done. Patient continues to decline PT/INR 3. Poor prognosis. If patient decides no code DNR status and a consideration to transition to hospice GI will sign off. For now continue medical management as before. Patient was seen per myself and Dr. Escobar, note was written on her behalf <Eli Titus - Last Filed: 07/11/18 14:25> - Attending Attestation seen, examined agree with above <Vonnie Escobar - Last Filed: 07/11/18 19:11>
--- NOTE | 2018-07-11 17:41 | P.DS ---
Date of admission: 07/09/18 09:52 Primary care physician: UNKNOWN Attending physician on discharge: Evelyn Manzano Anticipated date of discharge: 07/11/18 Brief History from admission: 63-year-old -N[place]alese male with a history of cirrhosis, hepatitis C, and recent history of GI bleed was brought to the ED by EMS for evaluation of altered mental status change times 24 hours duration. Patient is unable to provide any history, and history is obtained from patient's . She states, over the past 48 hours patient has become lethargic however able to express himself on Tuesday. But since yesterday he has been more sleepy. Abnormal lab on admission include ammonia of 93. There has been no report of GI bleed, gross hematuria, or hemoptysis. Per patient's , he has had decreased appetite. Patient update on day of discharge: Follow-up altered mental status, hepatic encephalopathy, hyperammonemia, cirrhosis, ascites, hep C, lactic acidosis, thrombocytopenia, coagulopathy, A. fib and CKD. Patient seen and examined laying in bed, nurse is at the bedside for lactulose administration. Patient is more awake and slight alertness as compared to yesterday, patient follows commands turns to the side when asked. Opens eyes when asked to. Answer simple questions. Family in room requested to talk and answer questions. Identify themselves as children and . Answer questions, discussed poor prognosis, agreed with the palliative care, children are present awaiting for the palliative care to come and speak with the family. DS: Diagnosis - Discharge Diagnosis (1) Hyperammonemia Status: Chronic (2) Hepatic encephalopathy Status: Chronic (3) Liver disease, chronic, with cirrhosis Status: Chronic (4) Ascites of liver Status: Chronic (5) Altered mental status Status: Chronic DS: Summary Hospital Course: 63-year-old -N[place]alese male with a history of cirrhosis, hepatitis C, and recent history of GI bleed was brought to the ED by EMS for evaluation of altered mental status change times 24 hours duration. GI consulted for end- stage liver failure with poor prognosis. Hepatic encephalopathy History Cirrhosis/ascites History of Hepatitis C Altered Mental Status Palliative care consulted and seen, family agreed for hospice care Patient will be discharged home with hospice care. - Time Spent with Patient Total time spent providing and/or coordinating discharge services: Less than 30 minutes Exam Vital signs: Vital Signs 07/10/18 20:00 07/11/18 00:00 07/11/18 04:36 Temperature 97.7 F 97.3 F L 97.5 F L Pulse Rate 72 76 73 Respiratory Rate 21 18 21 Blood Pressure 112/55 L 130/71 130/76 Pulse Oximetry 98 99 100 07/11/18 08:00 07/11/18 12:00 Temperature 98 F 97.9 F Pulse Rate 73 70 Respiratory Rate 19 19 Blood Pressure 106/59 L 136/73 Pulse Oximetry 99 99 Intake & Output 07/10/18 07/11/18 07/11/18 18:59 06:59 18:59 Intake Total 300 / 300 1000 / 1000 1000 / 1000 Balance 300 / 300 1000 / 1000 1000 / 1000 Weight 112 kg Intake: IV 300 / 300 1000 / 1000 1000 / 1000 NS Inj 1,000 ML @ 70 mls/hr IV. 200 / 200 CONT .[id number] [facility] Rx#:[id number] 1/2 Normal Saline Inj 1,000 ML 1000 / 1000 1000 / 1000 @ 70 mls/hr IV.CONT .[id number] [facility] Rx#:[id number] Rocephin Inj 1,000 MG In NS Inj 100 / 100 100 ML @ 200 mls/hr IV.SIG Q24H [facility] Rx#:[id number] Oral 0 / 0 Other: # Voids 7 4 Date of Last Bowel Movement 07/10/18 07/11/18 # Bowel Movements 1 Narrative: GENERAL: chronically ill looking male, awake and some alertness today, follows commands answer simple question, nurse in the room SKIN: Warm and dry. Jaundice, dry scaly skin HEAD: Atraumatic. Normocephalic. EYES: Pupils equal and round. No scleral icterus. No injection or drainage. jaundiced ENT: No nasal bleeding or discharge. Mucous membranes jaundiced and moist. NECK: Trachea midline. No JVD. CARDIOVASCULAR: Regular rate and rhythm. RESPIRATORY: No accessory muscle use. Clear to auscultation. Breath sounds equal bilaterally. GASTROINTESTINAL: Abdomen obese, soft, non-tender, distended. Hepatic and splenic margins not palpable. MUSCULOSKELETAL: Extremities without clubbing, cyanosis, or edema. No obvious deformities. Unable to assess strength due to lethargy NEUROLOGICAL: slighlty awake, slight alertness follows direction, No obvious cranial nerve deficits. PSYCHIATRIC: flat mood and affect Results Procedures completed during hospitalization: None Labs on day of discharge: Labs from last 24 hours 07/11/18 07/11/18 07/11/18 13:00 13:00 10:32 PT INR Fibrinogen 52 L* Lactic Acid 3.1 H Ammonia 71 H 07/11/18 07/10/18 06:28 19:21 PT 30.0 H 29.1 H INR 3.0 2.9 Fibrinogen Lactic Acid Ammonia - Impressions ITS Impressions Abdomen Ultrasound 07/09/18 00:00 CONCLUSION: 1. Moderate ascites. 2. Cirrhotic liver. Chest X-Ray 07/09/18 07:38 CONCLUSION: Stable chest without evidence of acute cardiopulmonary process. Head CT 07/09/18 07:38 CONCLUSION: 1. Stable evaluation. 2. No evidence of acute infarct, hemorrhage, mass or edema. . Discharge Plan - Discharge Disposition Patient Disposition: 50 Hospice/Home - Discharge Condition Condition: Fair - Discharge Order Discharge Orders: Discharge Order (Routine); Ordered 07/11/18 Ordered By: Julissa Lagos - Discharge Details Discharge Comment: Hospice Care - Physicians Team Primary Care Provider: UNKNOWN, Attending Provider: Eevlyn Manzano Other Providers: Vonnie Escobar MD ; Sampson Cota MD
== END 2018-07-11 20:34 | disposition hospice, inpatient (51) ==
LOC: NEPC 07:02 → NEDA 09:52 → N07 13:43
PROVIDERS: ADMIT Internal Medicine; ATTEND Internal Medicine